=== PATIENT | female | born 1970 | race Caucasian/White ===

== ENCOUNTER → 2017-08-16 09:50 | Outpatient (REF) | payer MEDICAID, SELFPAY ==
[2017-08-16 14:48] LABS: Amphetamine/Metha Screen,Urine Negative ng/mL (<1000); Barbiturates Screen,Urine Negative ng/mL (<200); Benzodiazepines Screen,Urine Negative ng/mL (200); Cannabinoid Screen,Urine Negative ng/mL (<50); Cocaine Screen,Urine Negative ng/g (<300); Methadone Screen,Urine Negative ng/mL (<300); Opiate Screen,Urine Positive ng/mL (<300); Phencyclidine Screen,Urine Negative ng/mL (<25)
[2017-08-23 11:13] LABS: Codeine Positive (.); Hydrocodone Negative (Cutoff=100); Hydromorphone Negative (Cutoff=100); Morphine Negative (Cutoff=100); Oxycodone (GC/MS) 264 ng/mL (Cutoff=100)
[2017-08-24 12:13] LABS: Opiates Positive (.); Oxymorphone (GC/MS) 442 ng/mL (Cutoff=100)
== END ==
LOC: LAB 09:50
PROVIDERS: Visit Provider Physician Assistant
DX: Z79.899 Other long term (current) drug therapy (principal)
CPT/HCPCS: 80305; 80361; G0480

== ENCOUNTER 2017-09-01 13:30 | Outpatient (RCR) | payer MEDICAID, SELFPAY | END 2017-10-02 15:27 | disposition home or self-care (01) | LOC: PT 13:30 | PROVIDERS: Visit Provider Nurse Practitioner Family | DX: M54.5 Low back pain (principal) | CPT/HCPCS: 97035; 97110; 97140; 97163 ==

== ENCOUNTER → 2017-09-19 14:48 | Outpatient (POV) | payer MEDICAID, SELFPAY | PROVIDERS: PCP Internal Medicine Adolescent Medicine; Visit Provider Internal Medicine | DX: Z00.00 Encounter for general adult medical examination without abnormal findings (principal) ==

== ENCOUNTER 2018-01-02 09:30 | Outpatient (RCR) | payer MEDICAID, SELFPAY | END 2018-01-02 15:00 | disposition home or self-care (01) | LOC: PT 09:30 | PROVIDERS: PCP Physician Assistant; Visit Provider Orthopaedic Surgery | DX: M70.21 Olecranon bursitis, right elbow (principal) | CPT/HCPCS: 97033; 97035; 97110; 97140; 97163 ==

== ENCOUNTER → 2018-03-22 09:19 | Outpatient (REF) | payer MEDICAID, SELFPAY ==
[2018-03-22 13:53] LABS: Basophils % 0.5 % (0.1-2.0); Eosinophils # 0.1 K/mm3 (0.0-0.4); Eosinophils % 1.5 % (0.1-12.0); Hematocrit 36.1 % (37.0-47.0); Hemoglobin 11.4 g/dL (12.2-16.2); Lymphocytes # 1.8 K/mm3 (0.7-4.5); Lymphocytes % 29.7 K/mm3 (10-50); Mean Corpuscular HGB Conc 31.6 g/dL (31.8-35.4); Mean Corpuscular Hemoglobin 30.1 pg (27.0-31.2); Mean Corpuscular Volume 95.3 fl (81-99); Mean Platelet Volume 8.9 fl (7.4-10.4); Monocytes # 0.5 K/mm3 (0.1-1.0); Monocytes % 7.4 % (1.7-9.3); Neutrophils # 3.7 K/mm3 (1.8-7.8); Neutrophils % 60.8 % (37.0-80.0); Platelet Count 326 K/mm3 (142-424); Red Blood Count 3.79 M/mm3 (4.20-5.40); Red Cell Distribution Width 13.2 % (11.5-17.5); White Blood Count 6.1 K/mm3 (4.8-10.8)
[2018-03-22 14:41] LABS: Alanine Aminotransferase 15 U/L (12-78); Albumin Level 3.9 gm/dL (3.4-5.0); Albumin/Globulin Ratio 1.3 (1.1-1.8); Alkaline Phosphatase 114 U/L (46-116); Amylase 99 U/L (25-125); Anion Gap 16.9 mEq/L (5-15); Aspartate Amino Transferase 11 U/L (15-37); Bilirubin,Total 0.4 mg/dL (0.2-1.0); Blood Urea Nitrogen 8 mg/dL (7-18); Calcium 8.9 mg/dL (8.5-10.1); Carbon Dioxide 25 mmol/L (21.0-32.0); Chloride 105 mmol/L (98-107); Chol/HDL Ratio 3.6 (1-3.5); Cholesterol 167 mg/dL (140-200); Creatinine,Serum 0.76 mg/dL (0.55-1.02); Estimated Glomerular Filt Rate 81 ml/min (>60); GFR (African American) 98 ML/MIN (>60); Glucose 93 mg/dL (74-106); HDL Cholesterol 47 mg/dL (29-89); LDL Cholesterol 102 mg/dL (0-130); Lipase 166 u/L (73-393); Potassium 3.9 mmoL/L (3.5-5.1); Sodium 143 mmol/L (136-145); T4 (Thyroxine) 6.1 ug/dl (4.7-13.3); Thyroid Stimulating Hormone 17.33 uIU/ml (0.358-3.740); Total Protein,Serum 6.9 gm/dL (6.4-8.2); Triglycerides 89 mg/dL (30-200); VLDL Cholesterol 18 mg/dL (0-40)
[2018-03-23 09:12] LABS: Cancer Antigen (CA) 125 26.3 U/mL (0.0-38.1); Vitamin D 25 Hydroxy 34.5 ng/mL (30.0-100.0)
== END ==
LOC: LAB 09:19
PROVIDERS: Visit Provider Physician Assistant
DX: R63.4 Abnormal weight loss (principal); R10.13 Epigastric pain; R68.81 Early satiety; R63.0 Anorexia; E55.9 Vitamin D deficiency, unspecified
CPT/HCPCS: 80053; 80061; 82150; 82652; 83690; 84436; 84443; 85025; 86316

== ENCOUNTER → 2018-04-16 13:55 | Outpatient (CLI) | payer MEDICAID, SELFPAY ==
--- NOTE | 2018-04-16 13:57 | CT_ITS ---
CT chest wo con HISTORY: Pain, weight loss, follow-up pulmonary nodules, emphysema ITS.REASON: weight loss ORDERING PHYSICIAN: MICHAEL Marin PATIENT AGE: 48 years COMPARISON: 06/17/2016 Technique: Axial images obtained with sagittal and coronal reformats. All CT scans at the facility use one or more dose reduction, viz: automated exposure control, ma/kV adjustment per patient size (including targeted exams where dose is matched to indication, i.e. head), or iterative reconstruction technique. FINDINGS: There are few scattered small mediastinal lymph nodes which do not appear significantly changed. No mediastinal or hilar mass. There are a few calcified hilar lymph nodes. Normal heart size without evidence of pericardial effusion. There are severe centrilobular and panlobular emphysematous changes. Calcified granuloma right upper lobe. Subpleural 3 x 6 mm nodular opacity right midlung laterally and may be slightly more prominent but could be due to the slice orientation. There is a 6 mm parenchymal opacity in the right upper lobe anterolaterally. This is slightly more prominent but does have a linear shape and may be related to an area of pulmonary fibrosis. Pulmonary fibrosis noted in the lung bases with subpleural blebs and bullous changes are present in the apices. 5 mm nodule in left lung base is unchanged. No new nodules apparent a 7 mm nodule present in the left infrahilar region. This is along the major fissure may be due to small lymph node. This is unchanged. No new nodules are apparent. No effusions or infiltrates. Emphysematous changes appear worse compared to the previous exam. No acute bony anomalies. No evidence of aortic aneurysm. IMPRESSION: 1. Severe centrilobular and panlobular emphysematous changes which are somewhat worse compared to the previous exam with pulmonary fibrotic changes in the lung bases and bullous changes in the apices. 2. Bilateral pulmonary nodules probably benign. One nodule in the subpleural region in the right upper lobe slightly more prominent. This measures 6 mm. 6 month follow-up is suggested.
--- NOTE | 2018-04-16 13:57 | CT_ITS ---
CT abdomen pelvis wo con CLINICAL INDICATION: Midepigastric pain, weight loss ITS.REASON: weight loss ORDERING PHYSICIAN: MICHAEL Marin PATIENT AGE: 48 years COMPARISON: None TECHNIQUE: Axial images obtained with sagittal and coronal reformats. All CT scans at the facility use one or more dose reduction, viz: automated exposure control, ma/kV adjustment per patient size (including targeted exams where dose is matched to indication, i.e. head), or iterative reconstruction technique. PROCEDURE: Oral Contrast: None IV Contrast: None . FINDINGS: The liver, spleen, adrenal glands, gallbladder, pancreas, and kidneys have an unremarkable unenhanced CT appearance. No intestinal obstruction or free air. Unremarkable retrocecal appendix. Sigmoid diverticulosis. No evidence of diverticulitis. Prior hysterectomy. No pelvic mass abnormal fluid collection or focal inflammatory change within the pelvis. No acute bony anomalies. IMPRESSION: 1. No acute abdominal or pelvic findings. 2. Sigmoid diverticulosis. 3. Otherwise negative CT abdomen pelvis without contrast
== END ==
PROVIDERS: PCP Physician Assistant; Visit Provider Physician Assistant
DX: R10.13 Epigastric pain (principal); R63.0 Anorexia; R63.4 Abnormal weight loss; R68.81 Early satiety
CPT/HCPCS: 71250; 74176

== ENCOUNTER → 2018-05-28 11:05 | Outpatient (REF) | payer MEDICAID, SELFPAY ==
[2018-05-28 13:54] LABS: Basophils % 0.4 % (0.1-2.0); Eosinophils # 0.1 K/mm3 (0.0-0.4); Eosinophils % 1.3 % (0.1-12.0); Hematocrit 35.7 % (37.0-47.0); Hemoglobin 11.5 g/dL (12.2-16.2); Lymphocytes # 2.9 K/mm3 (0.7-4.5); Lymphocytes % 35.1 K/mm3 (10-50); Mean Corpuscular HGB Conc 32.2 g/dL (31.8-35.4); Mean Corpuscular Hemoglobin 31.3 pg (27.0-31.2); Mean Corpuscular Volume 97.3 fl (81-99); Mean Platelet Volume 7.8 fl (7.4-10.4); Monocytes # 0.6 K/mm3 (0.1-1.0); Neutrophils # 4.7 K/mm3 (1.8-7.8); Neutrophils % 56.2 % (37.0-80.0); Platelet Count 431 K/mm3 (142-424); Red Blood Count 3.67 M/mm3 (4.20-5.40); Red Cell Distribution Width 13.4 % (11.5-17.5); White Blood Count 8.3 K/mm3 (4.8-10.8)
[2018-05-28 15:11] LABS: Alanine Aminotransferase 13 U/L (12-78); Albumin Level 3.9 gm/dL (3.4-5.0); Albumin/Globulin Ratio 1.3 (1.1-1.8); Alkaline Phosphatase 112 U/L (46-116); Anion Gap 10.8 mEq/L (5-15); Aspartate Amino Transferase 12 U/L (15-37); Bilirubin,Total 0.4 mg/dL (0.2-1.0); Blood Urea Nitrogen 6 mg/dL (7-18); Calcium 8.8 mg/dL (8.5-10.1); Carbon Dioxide 31 mmol/L (21.0-32.0); Chloride 101 mmol/L (98-107); Creatinine,Serum 0.61 mg/dL (0.55-1.02); Estimated Glomerular Filt Rate 104 ml/min (>60); Free T4 (Free Thyroxine) 0.78 ng/dl (0.76-1.46); GFR (African American) 126 ML/MIN (>60); Glucose 85 mg/dL (74-106); Potassium 3.8 mmoL/L (3.5-5.1); Sodium 139 mmol/L (136-145); Thyroid Stimulating Hormone 8.94 uIU/ml (0.358-3.740); Total Protein,Serum 6.9 gm/dL (6.4-8.2)
== END ==
LOC: LAB 11:05
PROVIDERS: Visit Provider Physician Assistant
DX: E07.9 Disorder of thyroid, unspecified (principal)
CPT/HCPCS: 80053; 84439; 84443; 85025

== ENCOUNTER → 2018-06-05 11:13 | Outpatient (POV) | payer MEDICAID, SELFPAY ==
[2018-06-05 13:24] LABS: Basophils % 0.4 % (0.1-2.0); Eosinophils # 0.1 K/mm3 (0.0-0.4); Eosinophils % 1.2 % (0.1-12.0); Hematocrit 37.6 % (37.0-47.0); Hemoglobin 11.7 g/dL (12.2-16.2); Lymphocytes # 2.6 K/mm3 (0.7-4.5); Lymphocytes % 29.4 K/mm3 (10-50); Mean Corpuscular HGB Conc 31.2 g/dL (31.8-35.4); Mean Corpuscular Volume 99.4 fl (81-99); Mean Platelet Volume 7.1 fl (7.4-10.4); Monocytes # 0.5 K/mm3 (0.1-1.0); Monocytes % 6.1 % (1.7-9.3); Neutrophils # 5.6 K/mm3 (1.8-7.8); Platelet Count 353 K/mm3 (142-424); Red Blood Count 3.78 M/mm3 (4.20-5.40); Red Cell Distribution Width 13.8 % (11.5-17.5); White Blood Count 8.9 K/mm3 (4.8-10.8)
[2018-06-06 08:27] LABS: Iron 96 ug/dL (27-159); UIBC 202 ug/dL (131-425)
[2018-06-06 14:44] LABS: Iron Saturation 32 % (15-55)
== END ==
PROVIDERS: Visit Provider Internal Medicine
DX: D50.0 Iron deficiency anemia secondary to blood loss (chronic) (principal)
CPT/HCPCS: 36415; 83540; 83550; 85025

== ENCOUNTER → 2018-11-12 15:09 | Outpatient (CLI) | payer MEDICAID, SELFPAY ==
[2018-11-12 16:01] LABS: Basophils % 0.6 % (0.1-2.0); Eosinophils # 0.2 K/mm3 (0.0-0.4); Eosinophils % 3.1 % (0.1-12.0); Hematocrit 37.2 % (37.0-47.0); Lymphocytes # 2.3 K/mm3 (0.7-4.5); Lymphocytes % 40.1 % (10-50); Mean Corpuscular HGB Conc 34.9 g/dL (31.8-35.4); Mean Corpuscular Hemoglobin 33.2 pg (27.0-31.2); Mean Corpuscular Volume 95.2 fl (81-99); Mean Platelet Volume 8.1 fl (7.4-10.4); Monocytes # 0.4 K/mm3 (0.1-1.0); Monocytes % 7.4 % (1.7-9.3); Neutrophils # 2.8 K/mm3 (1.8-7.8); Neutrophils % 48.8 % (37.0-80.0); Platelet Count 355 K/mm3 (142-424); Red Blood Count 3.91 M/mm3 (4.20-5.40); Red Cell Distribution Width 12.8 % (11.5-17.5); White Blood Count 5.7 K/mm3 (4.8-10.8)
[2018-11-12 17:32] LABS: Alanine Aminotransferase 17 U/L (12-78); Albumin Level 3.8 gm/dL (3.4-5.0); Albumin/Globulin Ratio 1.2 (1.1-1.8); Alkaline Phosphatase 100 U/L (46-116); Aspartate Amino Transferase 13 U/L (15-37); Bilirubin,Total 0.3 mg/dL (0.2-1.0); Blood Urea Nitrogen 9 mg/dL (7-18); Calcium 8.7 mg/dL (8.5-10.1); Carbon Dioxide 27 mmol/L (21.0-32.0); Chloride 104 mmol/L (98-107); Chol/HDL Ratio 3.9 (1-3.5); Cholesterol 190 mg/dL (140-200); Creatinine,Serum 0.72 mg/dL (0.55-1.02); Estimated Glomerular Filt Rate 86 ml/min (>60); GFR (African American) 104 ML/MIN (>60); Globulin 3.1 gm/dl (1.3-3.2); Glucose 96 mg/dL (74-106); HDL Cholesterol 49 mg/dL (29-89); LDL Cholesterol 100 mg/dL (0-130); Sodium 140 mmol/L (136-145); T4 (Thyroxine) 5.7 ug/dl (4.7-13.3); Thyroid Stimulating Hormone 13.99 uIU/ml (0.358-3.740); Total Protein,Serum 6.9 gm/dL (6.4-8.2); Triglycerides 203 mg/dL (30-200); VLDL Cholesterol 41 mg/dL (0-40)
[2018-11-14 14:27] LABS: Folate 4.4 ng/mL (>3.0); Vitamin B12 189 pg/mL (232-1245)
== END ==
PROVIDERS: Visit Provider Physician Assistant
DX: R07.9 Chest pain, unspecified (principal); B02.29 Other postherpetic nervous system involvement; Z79.899 Other long term (current) drug therapy; E55.9 Vitamin D deficiency, unspecified
CPT/HCPCS: 80053; 80061; 82607; 82652; 82746; 84436; 84443; 85025

== ENCOUNTER → 2018-11-21 07:52 | Outpatient (CLI) | payer MEDICAID, SELFPAY ==
--- NOTE | 2018-11-21 07:57 | MR_ITS ---
MR thoracic spine wo con HISTORY: PT was in pain. Had to be rescouted. Mid back pain. Numbness and burning in back. [id number]. No trauma. No thoracic surgery. ITS.REASON: Burning pain in thoracic area ORDERING PHYSICIAN: MICHAEL Marin PATIENT AGE: 48 years Comparison: MR 05-03-16 TECHNIQUE: Standard multiplanar multiecho sequences are performed without contrast. 3-D MIP and myelographic images are also rendered and reviewed FINDINGS: There is normal alignment. No fracture or dislocation. No disc herniation or canal stenosis. There is minimal cortical irregularity involving the superior endplate of T9 which is unchanged. Minimal central disc protrusion versus posterior longitudinal ligament at T1-T2 without impingement. Minimal bulging disc at T2-T3. IMPRESSION: No acute finding with no significant change. Minimal central disc protrusion versus posterior longitudinal ligament at T1-T2 and minimal bulging disc at T2-T3
== END ==
PROVIDERS: PCP Emergency Medicine; Visit Provider Physician Assistant
DX: B02.29 Other postherpetic nervous system involvement (principal); R07.9 Chest pain, unspecified
CPT/HCPCS: 72146

== ENCOUNTER → 2018-12-04 15:07 | Outpatient (POV) | payer MEDICAID, SELFPAY | PROVIDERS: Visit Provider Internal Medicine | DX: Z00.00 Encounter for general adult medical examination without abnormal findings (principal) ==

== ENCOUNTER → 2019-01-23 13:45 | Outpatient (CLI) | payer MEDICAID, SELFPAY | PROVIDERS: Visit Provider Physician Assistant | DX: R30.0 Dysuria (principal) | CPT/HCPCS: 87086 ==

== ENCOUNTER → 2019-02-21 15:29 | Outpatient (CLI) | payer MEDICAID, SELFPAY | PROVIDERS: Visit Provider Urology | DX: R39.89 Other symptoms and signs involving the genitourinary system (principal) | CPT/HCPCS: 87086 ==

== ENCOUNTER → 2019-05-21 14:10 | Outpatient (CLI) | payer MEDICAID, SELFPAY ==
--- NOTE | 2019-05-21 14:14 | XR_ITS ---
PROCEDURE: XR CHEST 2V CLINICAL HISTORY: SOA Cough, congestion, previous smoker COMPARISON: CXR CHEST(2 VIEWS-NOT PORTABLE) from 04/21/2016 CXR CHEST(2 VIEWS-NOT PORTABLE) from 10/10/2016 CXR CHEST(2 VIEWS-NOT PORTABLE) from 04/13/[address] chest wo con from 04/16/2018 SPTHORWO MR thoracic spine wo con from 11/21/2018 FINDINGS: The cardiomediastinal silhouette and pulmonary vascularity are within normal limits. COPD with hyperinflation and hyperlucency of the upper lobes No lobar consolidation or collapse. Calcified granuloma is present in the right lung base. There is mild wedging of T7 age which appears to have developed since MRI of 11/21/2018. IMPRESSION: 1. COPD. 2. Mild wedging of T7 which has developed since 11/21/2018 Dictated by: Troy Matamoros MD 05/21/2019 18:09 Electronically signed by Troy Matamoros MD in [place] 05/21/2019 18:09
== END ==
PROVIDERS: PCP Physician Assistant; Visit Provider Nurse Practitioner Family
DX: R06.02 Shortness of breath (principal)
CPT/HCPCS: 71046

== ENCOUNTER → 2019-06-04 10:52 | Outpatient (POV) | payer MEDICAID, SELFPAY ==
[2019-06-04 11:12] LABS: Adenovirus,PCR Not Detected (NotDetected); Bordetella Pertussis Not Detected (NotDetected); Chlamydophila Pneumoniae, PCR Not Detected (NotDetected); Coronavirus 229E Not Detected (NotDetected); Coronavirus NL63 Not Detected (NotDetected); Coronavirus OC43 Not Detected (NotDetected); Coronovirus HKU1,PCR Not Detected (NotDetected); Human Metapneumovirus Not Detected (NotDetected); Influenza A, PCR Not Detected (NotDetected); Influenza AH1, 2009 Not Detected (NotDetected); Influenza AH1, PCR Not Detected (NotDetected); Influenza AH3,PCR Not Detected (NotDetected); Influenza B, PCR Not Detected (NotDetected); Mycoplasma Pneumoniae, PCR Not Detected (NotDetected); Parainfluenza 1, PCR Not Detected (NotDetected); Parainfluenza 2, PCR Not Detected (NotDetected); Parainfluenza 3, PCR Not Detected (NotDetected); Parainfluenza 4, PCR Not Detected (NotDetected); Respiratory Syncytial Virus Not Detected (NotDetected); Rhinovirus/Enterovirus Not Detected (NotDetected)
== END ==
PROVIDERS: Nurse Practitioner Family; Visit Provider Internal Medicine
DX: J44.9 Chronic obstructive pulmonary disease, unspecified (principal)
CPT/HCPCS: 87486; 87581; 87633; 87798

== ENCOUNTER → 2019-06-06 15:39 | Outpatient (CLI) | payer MEDICAID, SELFPAY ==
--- NOTE | 2019-06-06 15:43 | XR_ITS ---
PROCEDURE: XR THORACIC SPINE 3V CLINICAL INDICATION: Thoracic back pain Mid back pain COMPARISON: SPTHORWO MR thoracic spine wo con from 11/21/2018 XR CHEST 2V from 05/21/2019 FINDINGS: There is minimal thoracic curvature convex left with mild wedging of T9 which does not appear significantly changed. This is greater along the right lateral aspect. There is also mild wedging of T7 which may be slightly worse compared to the radiograph of 05/21/2019.. No lytic or blastic change is evident. No malalignment. IMPRESSION: Mild wedging of T7 which may be slightly worse. Chronic wedging of T9 unchanged Dictated by: Troy Matamoros MD 06/06/2019 16:20 Electronically signed by Troy Matamoros MD in [place] 06/06/2019 16:20
== END ==
PROVIDERS: PCP Physician Assistant; Visit Provider Physician Assistant
DX: M54.6 Pain in thoracic spine (principal)
CPT/HCPCS: 72072

== ENCOUNTER → 2019-06-18 14:02 | Outpatient (CLI) | payer MEDICAID, SELFPAY ==
--- NOTE | 2019-06-18 14:15 | CT_ITS ---
PROCEDURE: CT CHEST WO CON CLINICAL INDICATION: MULTIPLE PULMONARY NODULES Follow-up pulmonary nodules COMPARISON: ABDPELWO CT abdomen pelvis wo con from 04/16/[address] chest wo con from 04/16/2018 SPTHORWO MR thoracic spine wo con from 11/21/2018 TECHNIQUE: Axial images obtained with sagittal and coronal reformats. All CT scans at the facility use one or more dose reduction, viz: automated exposure control, ma/kV adjustment per patient size (including targeted exams where dose is matched to indication, i.e. head), or iterative reconstruction technique. FINDINGS: There are scattered small mediastinal lymph nodes which are not significantly changed. Normal heart size. Old granulomatous disease. Severe centrilobular emphysema with scattered calcified and noncalcified nodules as previously described. No new nodules are evident. There is a 7 mm nodule in the left infrahilar region which is stable. This nodule is along the major fissure and may be due to a small lymph node in the major fissure. No suspicious pulmonary nodules are evident. There has been interval development of mild wedge compression changes involving the T7 vertebral body along the inferior endplate with loss of height anteriorly of approximately 40 percent. This has developed since 04/16/2018 and since the previous MRI of 11/21/2018. IMPRESSION: 1. Overall stable CT appearance of the pulmonary nodules with no new nodules evident. 2. Severe centrilobular emphysema/COPD. 3. New mild to moderate wedge compression changes of T7 with loss of height anteriorly of approximately 40 percent without obvious retropulsion Dictated by: Troy Matamoros MD 06/19/2019 06:39 Electronically signed by Troy Matamoros MD in [place] 06/19/2019 06:39
== END ==
PROVIDERS: PCP Physician Assistant; Visit Provider Internal Medicine
DX: R91.8 Other nonspecific abnormal finding of lung field (principal)
CPT/HCPCS: 71250

== ENCOUNTER 2019-06-24 13:00 | Outpatient (RCR) | payer MEDICAID, SELFPAY ==
--- NOTE | 2019-06-17 15:00 | HMH.PTOPEV ---
PT Outpatient Evaluation Rehab PT Outpatient Evaluation Start: 06/17/19 14:33 Freq: Status: Active Protocol: Document 06/17/19 14:33 [email or web address] (Rec: 06/17/19 15:00 [email or web address] [id number]) Electronically Signed By Mark Gagnon, PT 06/17/19 14:33 Outpatient Therapy Subjective History Subjective History Pt. is a 49 year old female who presents to outpatient PT for complaints of subacute and constant thoracic P! of insidious onset for 1 month. Pt. reports her symptom began as an itch, and has progressed to a bee sting that radiates around towards the stomach. Pt. reports no symptom relief with a steroid injection, and reports getting a CT scan tomorrow(06/17/19). Recent diagnostic imaging(X-ray) positive for mild wedging of T7/chronic wedging of T9. Current medications include Lyrica, Suboxone, Ibuprofen, and Chantix. PMH includes COPD , complete hysterectomy, Carpal Tunnel Syndrome R, CHF, and chronic UTIs. Chief Complaint Pain,Stiff,Paresthesia Symptom Type Ache,Dull,Stabbing,Numbness Symptoms Relieved By OTC Meds,Prescription Meds Symptoms Aggravated By Physical Activity,Lifting Prior Functional Limitations None Current Functional Limitations Reaching,Lifting,Housework, Driving,Sleeping,Recreation Activity Symptom Description Constant but Variable Level of pain today (0-10) 3 Pain scale - at its best (0-10) 3 Pain scale - at its worst (0-10) 8 Cervical Eval Palpation Cervical Muscles R Thoracic Paraspinals,L Thoracic Paraspinals Cervical/Thoracic Palpation Findings Tenderness MMT Bilateral Deltoid (C5) 5 Normal Biceps Brachii Strength Grade 5 Normal Wrist Extension Strength Grade 5 Normal Triceps Brachii Strength Grade 5 Normal Wrist Flexion Strength Grade 5 Normal Extensor Pollicis Longus Strength Grade 5 Normal Finger Abduction Strength Grade 5 Normal Altered Sensation Comment light touch sensation WNL Shoulder/Elbow Eval Shoulder Objective Measurements Posture Shoulder Posture Sitting Position (L) Ro
== END 2019-07-22 09:43 | disposition home or self-care (01) ==
LOC: PT.CARL 13:00
PROVIDERS: Visit Provider Physician Assistant
DX: M54.6 Pain in thoracic spine (principal)
CPT/HCPCS: 97014; 97110; 97140; 97163; G0283

== ENCOUNTER → 2019-06-26 08:06 | Outpatient (CLI) | payer MEDICAID, SELFPAY ==
--- NOTE | 2019-06-26 08:07 | MR_ITS ---
PROCEDURE: MR THORACIC SPINE WO CON CLINICAL INDICATION: wedging at T7 and T9 Mid back pain, compression fracture of T7 evaluation COMPARISON: SPTHORWO MR thoracic spine wo con from 11/21/2018 CT CHEST WO CON from 06/18/2019 TECHNIQUE: Routine multiplanar multi echo sequences are performed without gadolinium enhancement. FINDINGS: There is normal alignment. Compared to 11/21/2018 MRI there is a new wedge compression fracture T7 which does appear acute with decreased T1 and increased T2 signal along the inferior aspect of the T7 vertebral body. There is loss of height anteriorly of approximately 30-40 percent. No retropulsion apparent. Minimal bulging disc noted with minimal posterior ridging noted at the lower aspect of T7 vertebral body. No cord impingement. There is mild chronic wedge compression changes involving the T9 vertebral body along the superior endplate. There is also mild loss of height anteriorly of T3 which appears chronic. No bony destructive process. No spinal cord abnormality. No paravertebral mass.. No extruded herniated disc. IMPRESSION: 1. Mild acute wedge compression changes of T7 without obvious retropulsion. Minimal bulging disc with minimal posterior ridging at the endplate at this level without impingement 2. Chronic mild wedge compression changes of T3 and T9. 3. Otherwise negative Dictated by: Troy Matamoros MD 06/27/2019 11:40 Electronically signed by Troy Matamoros MD in [facility] 06/27/2019 11:40
== END ==
PROVIDERS: PCP Physician Assistant; Visit Provider Physician Assistant
DX: M48.50XA Collapsed vertebra, not elsewhere classified, site unspecified, initial encounter for fracture (principal)
CPT/HCPCS: 72146

== ENCOUNTER → 2019-07-05 09:44 | Outpatient (CLI) | payer MEDICAID, SELFPAY ==
--- NOTE | 2019-07-05 09:45 | MR_ITS ---
PROCEDURE: MR HEAD/BRAIN WO/W CON CLINICAL INDICATION: Slurred speech, abnormal sensation in the right arm COMPARISON: No exams were available for comparison TECHNIQUE: Routine multiplanar multi echo sequences are performed without and with gadolinium enhancement. FINDINGS: No midline shift, mass effect, intracranial hemorrhage, or hydrocephalus is evident. No enhancing lesions are apparent. There are few scattered periventricular and subcortical T2 white matter hyperintensities. There is a small area of cystic encephalomalacia in the right frontal parietal region of the ulloa radiata consistent with an old area of infarction. This does not demonstrate enhancement. The cerebellopontine angles, cerebellum, and brainstem are unremarkable. The pituitary, optic chiasm, corpus callosum, and craniocervical junction are unremarkable. There is a left mastoid effusion. No sinus air-fluid level. IMPRESSION: 1. Scattered periventricular and subcortical T2 white matter hyperintensities. These are nonspecific with the most common etiology being ischemic gliotic change from small vessel disease. Migraine headache or demyelinating process is included in the differential diagnosis. 2. Encephalomalacia change in the right ulloa radiata consistent with an old lacunar infarction 3. Left mastoid sinus disease Dictated by: Troy Matamoros MD 07/06/2019 00:58 Electronically signed by Troy Matamoros MD in [facility] 07/06/2019 07:50
== END ==
PROVIDERS: PCP Physician Assistant; Visit Provider Physician Assistant
DX: R93.0 Abnormal findings on diagnostic imaging of skull and head, not elsewhere classified (principal)
CPT/HCPCS: 70553; A9576

== ENCOUNTER → 2019-09-19 17:28 | Outpatient (CLI) | payer MEDICAID, SELFPAY ==
[2019-09-19 18:32] LABS: Basophils % 0.7 % (0.1-2.0); Eosinophils # 0.1 K/mm3 (0.0-0.4); Eosinophils % 3.3 % (0.1-12.0); Hematocrit 38.7 % (37.0-47.0); Hemoglobin 12.7 g/dL (12.2-16.2); Lymphocytes # 1.8 K/mm3 (0.7-4.5); Mean Corpuscular HGB Conc 32.8 g/dL (31.8-35.4); Mean Corpuscular Hemoglobin 31.3 pg (27.0-31.2); Mean Corpuscular Volume 95.2 fl (81-99); Monocytes # 0.3 K/mm3 (0.1-1.0); Monocytes % 6.8 % (1.7-9.3); Neutrophils # 2.1 K/mm3 (1.8-7.8); Neutrophils % 48.2 % (37.0-80.0); Platelet Count 370 K/mm3 (142-424); Red Blood Count 4.07 M/mm3 (4.20-5.40); Red Cell Distribution Width 12.9 % (11.5-17.5); White Blood Count 4.4 K/mm3 (4.8-10.8)
[2019-09-19 19:13] LABS: Alanine Aminotransferase 17 U/L (9-52); Albumin Level 4.2 g/dL (3.4-5.0); Albumin/Globulin Ratio 1.3 (1.1-1.8); Anion Gap 13.5 mEq/L (5-15); Aspartate Amino Transferase 15 U/L (15-37); Bilirubin,Total 0.3 mg/dL (0.2-1.0); Blood Urea Nitrogen 6 mg/dL (7-18); Calcium 8.7 mg/dL (8.5-10.1); Carbon Dioxide 30 mmol/L (21.0-32.0); Chloride 104 mmol/L (98-107); Cholesterol 208 mg/dL (140-200); Creatinine,Serum 0.74 mg/dL (0.55-1.02); Estimated Glomerular Filt Rate 83 ml/min (>60); GFR (African American) 101 ML/MIN (>60); Globulin 3.3 gm/dl (1.3-3.2); Glucose 78 mg/dL (74-106); HDL Cholesterol 66 mg/dL (29-89); Potassium 4.5 mmoL/L (3.5-5.1); Sodium 143 mmol/L (137-145); Total Protein,Serum 7.5 g/dL (6.4-8.2); Triglycerides 110 mg/dL (30-200); VLDL Cholesterol 22 mg/dL (0-40)
[2019-09-19 19:14] LABS: Alkaline Phosphatase 109 U/L (46-116); Chol/HDL Ratio 3.2 (1-3.5); LDL Cholesterol 120 mg/dL (0-130); T4 (Thyroxine) 9.2 ug/dl (4.7-13.3); Thyroid Stimulating Hormone 4.98 uIU/ml (0.358-3.740)
[2019-09-21 19:10] LABS: Vitamin D 25 Hydroxy 24.5 ng/mL (30.0-100.0)
== END ==
PROVIDERS: Visit Provider Physician Assistant
DX: E03.9 Hypothyroidism, unspecified (principal); E55.9 Vitamin D deficiency, unspecified
CPT/HCPCS: 80053; 80061; 82652; 84436; 84443; 85025

== ENCOUNTER → 2019-09-30 09:52 | Outpatient (CLI) | payer MEDICAID, SELFPAY ==
--- NOTE | 2019-09-30 09:52 | XR_ITS ---
PROCEDURE: XR DEXA AXIAL SKELETON CLINICAL HISTORY: Compression fracture COMPARISON: No exams were available for comparison FINDINGS: Right femoral neck density is 0.530 grams/centimeters sq with a T-score of -2.9 consistent with osteoporosis. Left femoral neck density is 0.521 grams/centimeters sq with a T-score of -3.0 consistent with osteoporosis. L1-L4 density is 0.653 grams/centimeters sq with T-score of -3.6 also consistent with osteoporosis. IMPRESSION: Osteoporosis with high fracture risk. Treatment advised. Suggest follow-up exam in 1 year. Dictated by: Troy Matamoros MD 10/01/2019 16:58 Electronically signed by Troy Matamoros MD in [facility] 10/01/2019 16:58
== END ==
PROVIDERS: PCP Physician Assistant; Visit Provider Physician Assistant
DX: S22.060A Wedge compression fracture of T7-T8 vertebra, initial encounter for closed fracture (principal)
CPT/HCPCS: 77080

== ENCOUNTER → 2019-12-09 13:57 | Outpatient (CLI) | payer MEDICAID, SELFPAY ==
--- NOTE | 2019-12-09 14:02 | MR_ITS ---
PROCEDURE: MR THORACIC SPINE WO CON CLINICAL INDICATION: WEDGE COMPRESSION FX T7-T8 Mid back pain, compression fracture, evaluate T7 compression fracture COMPARISON: MR THORACIC SPINE WO CON from 06/26/2019 TECHNIQUE: Routine multiplanar multi echo sequences are performed without gadolinium enhancement. FINDINGS: There is normal alignment. There is continued mild wedge compression changes of T7. This however does not appear progressed compared to the previous exam. The increased T2 signal within the lower aspect of the T7 vertebral body has improved with only a small area of increased T2 signal along the anterior and inferior aspect of T7 vertebral body. No retropulsion. There is mild degenerative disc disease at T8-T9. There is minimal wedging of T3. This however does not appear acute. There is minimal bulging disc at T7-T8 with mild degenerative disc disease there is minimal anterolisthesis of T2 on T3 of 2-3 mm. IMPRESSION: 1. Overall no significant change from 06/26/2019. 2. Mild chronic wedge compression changes of T7 and minimal chronic wedging T3 Dictated by: Troy Matamoros MD 12/11/2019 13:16 Electronically signed by Troy Matamoros MD in [place] 12/11/2019 13:16
--- NOTE | 2019-12-09 15:32 | XR_ITS ---
PROCEDURE: XR CERVICAL SPINE 5V CLINICAL INDICATION: Neck pain COMPARISON: No exams were available for comparison FINDINGS: Normal alignment. There is mild osteoarthritic change at C5-C6. There is mild foraminal narrowing on the right at C5-C6 and on the left at C5-C6. No cervical rib. No lytic or blastic change. IMPRESSION: Mild degenerative disc disease with bilateral foraminal narrowing at C5-C6 Dictated by: Troy Matamoros MD 12/09/2019 17:30 Electronically signed by Troy Matamoros MD in [place] 12/09/2019 17:30
== END ==
PROVIDERS: PCP Physician Assistant; Visit Provider Anesthesiology Pain Medicine
DX: S22.060S Wedge compression fracture of T7-T8 vertebra, sequela (principal); M54.13 Radiculopathy, cervicothoracic region; G89.4 Chronic pain syndrome
CPT/HCPCS: 72050; 72146

== ENCOUNTER → 2020-03-09 14:22 | Outpatient (CLI) | payer MEDICAID, SELFPAY ==
[2020-03-11 13:24] LABS: Covid-19 Nasal PCR Sendout Lex Not Detected
== END ==
PROVIDERS: Visit Provider Dermatology Dermatopathology
DX: Z01.812 Encounter for preprocedural laboratory examination (principal)
CPT/HCPCS: U0004

== ENCOUNTER → 2020-04-14 17:16 | Outpatient (CLI) | payer MEDICAID, SELFPAY ==
[2020-04-14 17:56] LABS: Basophils % 0.6 % (0.1-2.0); Eosinophils # 0.2 K/mm3 (0.0-0.4); Eosinophils % 3.6 % (0.1-12.0); Hematocrit 37.6 % (37.0-47.0); Hemoglobin 12.6 g/dL (12.2-16.2); Lymphocytes # 1.9 K/mm3 (0.7-4.5); Lymphocytes % 35.1 % (10-50); Mean Corpuscular HGB Conc 33.5 g/dL (31.8-35.4); Mean Corpuscular Hemoglobin 33.9 pg (27.0-31.2); Mean Corpuscular Volume 101.2 fl (81-99); Monocytes # 0.5 K/mm3 (0.1-1.0); Monocytes % 8.6 % (1.7-9.3); Neutrophils # 2.8 K/mm3 (1.8-7.8); Platelet Count 319 K/mm3 (142-424); Red Blood Count 3.72 M/mm3 (4.20-5.40); White Blood Count 5.4 K/mm3 (4.8-10.8)
[2020-04-14 18:01] LABS: Alanine Aminotransferase 9 U/L (12-78); Albumin Level 4.2 g/dl (3.5-5.0); Albumin/Globulin Ratio 1.4 (1.1-1.8); Alkaline Phosphatase 117 U/L (38-126); Anion Gap 11.8 mEq/L (5-15); Aspartate Amino Transferase 23 U/L (14-36); Bilirubin,Total 0.5 mg/dl (0.2-1.3); Blood Urea Nitrogen 8 mg/dl (7-17); Calcium 9.6 mg/dl (8.4-10.2); Carbon Dioxide 31 mmol/L (22.0-30.0); Chloride 101 mmol/L (98-107); Chol/HDL Ratio 3.2 (1-3.5); Cholesterol 207 mg/dl (140-200); Estimated Glomerular Filt Rate 105 ml/min (>60); GFR (African American) 128 ML/MIN (>60); Globulin 2.9 g/dL (1.3-3.2); Glucose 89 mg/dl (74-100); HDL Cholesterol 65 mg/dl (40-60); Potassium 4.8 mmoL/L (3.5-5.1); Sodium 139 mmol/L (136-145); Total Protein,Serum 7.1 g/dl (6.3-8.2); Triglycerides 128 mg/dl (30-150); VLDL Cholesterol 26 mg/dL (0-40)
[2020-04-14 18:12] LABS: Direct LDL Cholesterol 109.13 mg/dL (100-129)
[2020-04-14 18:18] LABS: 25-OH Vitamin D, Total 41.5 ng/mL (30-100)
[2020-04-14 18:19] LABS: Free T4 (Free Thyroxine) 1.03 ng/dl (0.78-2.19)
== END ==
PROVIDERS: Visit Provider Physician Assistant
DX: E03.9 Hypothyroidism, unspecified (principal); E55.9 Vitamin D deficiency, unspecified; I10 Essential (primary) hypertension
CPT/HCPCS: 80053; 80061; 82306; 84439; 84443; 85025

== ENCOUNTER → 2020-09-09 18:02 | Outpatient (CLI) | payer MEDICAID, SELFPAY ==
[2020-09-09 21:11] LABS: Thyroid Stimulating Hormone 6.93 uIU/mL (0.465-4.68)
[2020-09-10 17:14] LABS: Free T4 (Free Thyroxine) 0.83 ng/dl (0.78-2.19)
== END ==
PROVIDERS: Visit Provider Physician Assistant
DX: E03.9 Hypothyroidism, unspecified (principal); R30.0 Dysuria
CPT/HCPCS: 84436; 84439; 84443; 87086

== ENCOUNTER → 2020-10-07 09:52 | Outpatient (CLI) | payer MEDICAID, SELFPAY ==
--- NOTE | 2020-10-07 09:52 | XR_ITS ---
PROCEDURE: XR DEXA AXIAL SKELETON CLINICAL HISTORY: annual f/u COMPARISON: No exams were available for comparison FINDINGS: The right hip BMD is 0.609 with a T-score of -2.2. The left hip BMD is 0.625 with a T-score of -2.6. The lumbar spine BMD is 0.708 with a T-score of -3.1. IMPRESSION: This patient is considered osteoporotic according to the World Health Organization criteria. Fracture risk is high. Treatment is advised. Based on these results a follow-up exam is recommended in 1 year. Dictated by: Troy Matamoros MD 10/08/2020 14:20 Troy Matamoros MD in [place] 10/08/2020 14:20
== END ==
PROVIDERS: PCP Physician Assistant; Visit Provider Physician Assistant
DX: M81.0 Age-related osteoporosis without current pathological fracture (principal)
CPT/HCPCS: 77080

== ENCOUNTER → 2021-02-02 17:28 | Outpatient (CLI) | payer MEDICAID, SELFPAY ==
[2021-02-02 18:19] LABS: Basophils % 0.8 % (0.1-2.0); Eosinophils # 0.2 K/mm3 (0.0-0.4); Eosinophils % 3.2 % (0.1-12.0); Hematocrit 35.3 % (37.0-47.0); Hemoglobin 11.8 g/dL (12.2-16.2); Lymphocytes # 1.6 K/mm3 (0.7-4.5); Lymphocytes % 30.4 % (10-50); Mean Corpuscular HGB Conc 33.5 g/dL (31.8-35.4); Mean Corpuscular Hemoglobin 31.7 pg (27.0-31.2); Mean Corpuscular Volume 94.5 fl (81-99); Mean Platelet Volume 9.8 fl (7.4-10.4); Monocytes # 0.5 K/mm3 (0.1-1.0); Monocytes % 8.6 % (1.7-9.3); Neutrophils % 57.1 % (37.0-80.0); Platelet Count 382 K/mm3 (142-424); Red Blood Count 3.74 M/mm3 (4.20-5.40); Red Cell Distribution Width 13.5 % (11.5-17.5); White Blood Count 5.2 K/mm3 (4.8-10.8)
[2021-02-02 19:12] LABS: Alanine Aminotransferase 9 U/L (12-78); Albumin Level 4.2 g/dl (3.5-5.0); Albumin/Globulin Ratio 1.5 (1.1-1.8); Alkaline Phosphatase 93 U/L (38-126); Anion Gap 12.2 mEq/L (5-15); Aspartate Amino Transferase 21 U/L (14-36); Bilirubin,Total 0.5 mg/dl (0.2-1.3); Blood Urea Nitrogen 8 mg/dl (7-17); Calcium 9.2 mg/dl (8.4-10.2); Carbon Dioxide 31 mmol/L (22.0-30.0); Chloride 103 mmol/L (98-107); Chol/HDL Ratio 2.7 (1-3.5); Cholesterol 189 mg/dl (140-200); Estimated Glomerular Filt Rate 88 ml/min (>60); GFR (African American) 107 ML/MIN (>60); Globulin 2.8 g/dL (1.3-3.2); Glucose 89 mg/dl (74-100); HDL Cholesterol 69 mg/dl (40-60); Potassium 4.2 mmoL/L (3.5-5.1); Sodium 142 mmol/L (136-145); Triglycerides 149 mg/dl (30-150); VLDL Cholesterol 30 mg/dL (0-40)
[2021-02-02 19:23] LABS: Direct LDL Cholesterol 84.14 mg/dL (100-129)
[2021-02-02 19:31] LABS: 25-OH Vitamin D, Total 47.8 ng/mL (30-100); Free T4 (Free Thyroxine) 1.83 ng/dl (0.78-2.19)
[2021-02-02 19:43] LABS: Thyroid Stimulating Hormone 0.19 uIU/mL (0.465-4.68)
[2021-02-02 20:36] LABS: Iron 120 ug/dL (37-170)
[2021-02-02 20:45] LABS: Total Iron Binding Capacity 283 ug/dL (265-497)
== END ==
PROVIDERS: Visit Provider Physician Assistant
DX: I10 Essential (primary) hypertension (principal); E03.9 Hypothyroidism, unspecified; E55.9 Vitamin D deficiency, unspecified; R53.83 Other fatigue
CPT/HCPCS: 80053; 80061; 82306; 83540; 83550; 84439; 84443; 85025

== ENCOUNTER → 2021-02-25 12:59 | Outpatient (CLI) | payer MEDICAID, SELFPAY | PROVIDERS: PCP Physician Assistant; Visit Provider Physician Assistant | DX: J44.9 Chronic obstructive pulmonary disease, unspecified (principal) | CPT/HCPCS: 94060; 94726; 94729 ==

== ENCOUNTER → 2021-04-14 15:13 | Outpatient (CLI) | payer MEDICAID, SELFPAY ==
[2021-04-16 12:19] LABS: Alpha-1-Antitrypsin 102 mg/dL (101-187)
[2021-04-19 00:05] LABS: D001-IgE D pteronyssinus <0.10 kU/L (Class 0); D002-IgE D farinae <0.10 kU/L (Class 0); E001-IgE Cat Dander <0.10 kU/L (Class 0); E005-IgE Dog Dander <0.10 kU/L (Class 0); E072-IgE Mouse Urine <0.10 kU/L (Class 0); G002-IgE Bermuda Grass <0.10 kU/L (Class 0); G006-IgE Timothy Grass <0.10 kU/L (Class 0); I006-IgE Cockroach, German <0.10 kU/L (Class 0); Immunoglobulin E, Total 27 IU/mL (6-495); M001-IgE Penicillium chrysogen <0.10 kU/L (Class 0); M002-IgE Cladosporium herbarum <0.10 kU/L (Class 0); M003-IgE Aspergillus fumigatus <0.10 kU/L (Class 0); M006-IgE Alternaria alternata <0.10 kU/L (Class 0); T001-IgE Maple/Box Elder <0.10 kU/L (Class 0); T003-IgE Common Silver Birch <0.10 kU/L (Class 0); T006-IgE Cedar, Mountain <0.10 kU/L (Class 0); T007-IgE Oak, White <0.10 kU/L (Class 0); T008-IgE Elm, American <0.10 kU/L (Class 0); T010-IgE Walnut <0.10 kU/L (Class 0); T011-IgE Maple Leaf Sycamore <0.10 kU/L (Class 0); T014-IgE Cottonwood <0.10 kU/L (Class 0); T015-IgE Ash, White <0.10 kU/L (Class 0); T022-IgE Pecan, Hickory <0.10 kU/L (Class 0); T070-IgE White Mulberry <0.10 kU/L (Class 0); W001-IgE Ragweed, Short <0.10 kU/L (Class 0); W011-IgE Thistle, Russian <0.10 kU/L (Class 0); W014-IgE Pigweed, Common <0.10 kU/L (Class 0); W018-IgE Sheep Sorrel <0.10 kU/L (Class 0)
== END ==
PROVIDERS: Visit Provider Internal Medicine Pulmonary Disease
DX: J44.9 Chronic obstructive pulmonary disease, unspecified (principal)
CPT/HCPCS: 36415; 82103; 82785; 86003

== ENCOUNTER → 2021-05-05 15:37 | Outpatient (CLI) | payer MEDICAID, SELFPAY ==
--- NOTE | 2021-05-05 15:41 | CT_ITS ---
PROCEDURE: CT CHEST WO CON CLINICAL INDICATION: nodule Shortness of air COMPARISON: CT CT CHEST WO CON from 06/18/2019 TECHNIQUE: Axial images obtained with sagittal and coronal reformats. All CT scans at the facility use one or more dose reduction, viz: automated exposure control, ma/kV adjustment per patient size (including targeted exams where dose is matched to indication, i.e. head), or iterative reconstruction technique. FINDINGS: HEART AND MEDIASTINAL STRUCTURES: Mildly prominent mediastinal lymph nodes not significantly changed. LUNGS AND PLEURAL SPACES: Severe panlobular emphysema with evidence of old granulomatous disease and scattered areas of scarring. Bullous changes are present as before. 7 x 5 mm mike fissural nodule along the left major fissure centrally unchanged. No new nodules evident. No evidence of pneumonia or effusion. No change mild wedging of T7 and minimal wedging of T9. No new wedge compression fractures apparent BONY STRUCTURES: No change mild wedging of T7 and minimal wedging of T9. No new wedge compression fractures apparent UPPER ABDOMEN: Unremarkable. ADDITIONAL FINDINGS: No other significant abnormalities. IMPRESSION: 1. Stable CT appearance of the chest. No change in the 7 x 5 mm left Mike fissural nodule. 2. Severe panlobular emphysema with bullous changes Dictated by: Troy Matamoros MD 05/06/2021 07:33 Troy Matamoros MD in [place] 05/06/2021 07:33
== END ==
PROVIDERS: PCP Physician Assistant; Visit Provider Internal Medicine Pulmonary Disease
DX: R06.00 Dyspnea, unspecified (principal); R06.02 Shortness of breath; R91.1 Solitary pulmonary nodule; J44.9 Chronic obstructive pulmonary disease, unspecified; Z87.891 Personal history of nicotine dependence
CPT/HCPCS: 71250

== ENCOUNTER → 2021-10-06 14:37 | Outpatient (CLI) | payer MEDICAID, SELFPAY ==
[2021-10-06 17:28] LABS: Alanine Aminotransferase 12 U/L (12-78); Albumin Level 4.3 g/dl (3.5-5.0); Albumin/Globulin Ratio 1.7 (1.1-1.8); Alkaline Phosphatase 93 U/L (38-126); Anion Gap 10.9 mEq/L (5-15); Aspartate Amino Transferase 28 U/L (14-36); Bilirubin,Total 0.4 mg/dl (0.2-1.3); Blood Urea Nitrogen 4 mg/dl (7-17); Calcium 8.9 mg/dl (8.4-10.2); Carbon Dioxide 29 mmol/L (22.0-30.0); Chloride 100 mmol/L (98-107); Cholesterol 176 mg/dl (140-200); Estimated Glomerular Filt Rate 130 ml/min (>60); GFR (African American) 157 ML/MIN (>60); Globulin 2.6 g/dL (1.3-3.2); Glucose 88 mg/dl (74-100); HDL Cholesterol 58 mg/dl (40-60); Potassium 3.9 mmoL/L (3.5-5.1); Sodium 136 mmol/L (136-145); Total Protein,Serum 6.9 g/dl (6.3-8.2); Triglycerides 109 mg/dl (30-150); VLDL Cholesterol 22 mg/dL (0-40)
[2021-10-06 17:33] LABS: Basophils # 0.1 K/mm3 (0-0.2); Basophils % 1.3 % (0.1-2.0); Eosinophils # 0.1 K/mm3 (0.0-0.4); Eosinophils % 2.5 % (0.1-12.0); Hematocrit 37.1 % (37.0-47.0); Hemoglobin 11.5 g/dL (12.2-16.2); Lymphocytes # 1.6 K/mm3 (0.7-4.5); Lymphocytes % 34.1 % (10-50); Mean Corpuscular HGB Conc 30.9 g/dL (31.8-35.4); Mean Corpuscular Hemoglobin 31.7 pg (27.0-31.2); Mean Corpuscular Volume 102.5 fl (81-99); Mean Platelet Volume 9.7 fl (7.4-10.4); Monocytes # 0.3 K/mm3 (0.1-1.0); Monocytes % 7.4 % (1.7-9.3); Neutrophils # 2.5 K/mm3 (1.8-7.8); Neutrophils % 54.8 % (37.0-80.0); Platelet Count 336 K/mm3 (142-424); Red Blood Count 3.62 M/mm3 (4.20-5.40); Red Cell Distribution Width 12.9 % (11.5-17.5); White Blood Count 4.6 K/mm3 (4.8-10.8)
[2021-10-06 17:39] LABS: Direct LDL Cholesterol 79.89 mg/dL (100-129)
[2021-10-06 17:45] LABS: 25-OH Vitamin D, Total 80.4 ng/mL (30-100)
[2021-10-06 18:00] LABS: Thyroid Stimulating Hormone 0.64 uIU/mL (0.465-4.68)
[2021-10-06 18:18] LABS: Vitamin B12 270 pg/mL (239-931)
[2021-10-06 18:45] LABS: Ferritin 29.9 ng/ml (11.1-264)
== END ==
PROVIDERS: Visit Provider Physician Assistant
DX: R29.898 Other symptoms and signs involving the musculoskeletal system (principal); M25.511 Pain in right shoulder
CPT/HCPCS: 80053; 80061; 82306; 82607; 82728; 84443; 85025

== ENCOUNTER → 2021-10-07 10:29 | Outpatient (CLI) | payer MEDICAID, SELFPAY ==
[2021-10-07 13:29] LABS: Folate 9.78 ng/mL; Vitamin B12 246 pg/mL (239-931)
[2021-10-07 15:16] LABS: Iron 166 ug/dL (37-170)
[2021-10-07 15:26] LABS: Total Iron Binding Capacity 296 ug/dL (265-497)
== END ==
PROVIDERS: Visit Provider Physician Assistant
DX: M79.605 Pain in left leg (principal); M79.604 Pain in right leg; R53.1 Weakness
CPT/HCPCS: 82607; 82746; 83540; 83550

== ENCOUNTER → 2021-10-14 08:41 | Outpatient (CLI) | payer MEDICAID, SELFPAY ==
--- NOTE | 2021-10-14 08:41 | MR_ITS ---
FINAL REPORT CLINICAL HISTORY: right shoulder pain and decreased ROM. rt shoulder pain x2-3wks. no injury or trauma. weakness in arm. FINDINGS: Multiplanar MR imaging of the right shoulder was performed without contrast. There is motion artifact on many sequences. A partial-thickness, articular surface tear of the supraspinatus tendon is seen measuring greater than 50%. The infraspinatus tendon is intact. There is mild a.c. joint arthrosis with mild outlet narrowing. Spurring is seen at the undersurface of the acromion. There are multiple subchondral cysts in the superior humeral head. A small amount of fluid is present in the subacromial/subdeltoid bursa. No labral tear is identified. The long head of the biceps tendon is intact. No significant glenohumeral joint effusion is identified. The musculature is intact. There is no evidence of soft tissue mass or cyst. IMPRESSION: Partial-thickness, articular surface tear of the supraspinatus tendon, greater than 50%. Mild a.c. joint arthrosis with mild subacromial/subdeltoid bursitis. Reviewed, Interpreted and Dictated by Osvaldo Kolb III, MD Transcribed by Kristy Adams Authenticated by Osvaldo Kolb III, MD on 10/14/2021 11:19:04 AM [facility]
--- NOTE | 2021-10-14 08:48 | US_ITS ---
FINAL REPORT CLINICAL HISTORY: CLAUDICATION,SMOKER,NUMBNESS/BURNING BLE'S FINDINGS: ANKLE-BRACHIAL PRESSURE INDICES Pressure indices are as follows: RIGHT LOWER EXTREMITY: Ankle-brachial pressure index: 1.05 Comments: Normal LEFT LOWER EXTREMITY: Ankle-brachial pressure index: 1.05 Comments: Normal IMPRESSION: No evidence of significant obstructive peripheral vascular disease of the lower extremities Reviewed, Interpreted and Dictated by Osvaldo Kolb III, MD Transcribed by Kristy Adams Authenticated by Osvaldo Kolb III, MD on 10/14/2021 11:19:06 AM [facility]
== END ==
PROVIDERS: PCP Physician Assistant; Visit Provider Physician Assistant
DX: M25.511 Pain in right shoulder (principal); M79.605 Pain in left leg; M79.604 Pain in right leg
CPT/HCPCS: 73221; 93923

== ENCOUNTER → 2022-06-28 14:10 | Outpatient (CLI) | payer MEDICAID, SELFPAY ==
[2022-07-01 21:08] LABS: Neisseria gonorrhoeae, NAA Negative (Negative)
== END ==
PROVIDERS: PCP Physician Assistant; Visit Provider Physician Assistant
DX: N76.0 Acute vaginitis (principal); R39.9 Unspecified symptoms and signs involving the genitourinary system
CPT/HCPCS: 87086; 87210; 87491; 87591

== ENCOUNTER → 2022-08-15 13:06 | Outpatient (CLI) | payer MEDICAID, SELFPAY ==
--- NOTE | 2022-08-15 13:11 | XR_ITS ---
FINAL REPORT TECHNIQUE: Chest PA & Lateral CLINICAL HISTORY: Coughing, wheeze, COPD COMPARISON: May 2019 FINDINGS: 2 views of the chest were performed. The heart size is normal. The mediastinum is within normal limits. The lungs are hyperinflated consistent with COPD. There is no acute cardiopulmonary process. There are no pleural effusions. There is no pneumothorax. The bony thorax appears intact. IMPRESSION: No acute cardiopulmonary process. Reviewed, Interpreted and Dictated by Osvaldo Kolb III, MD Transcribed by David Roca Authenticated and [facility]
== END ==
PROVIDERS: PCP Physician Assistant; Visit Provider Physician Assistant
DX: R05.9 Cough, unspecified (principal); R06.2 Wheezing; J44.9 Chronic obstructive pulmonary disease, unspecified
CPT/HCPCS: 71046

== ENCOUNTER 2022-11-17 16:39 | Emergency (ER) | payer MEDICAID, SELFPAY ==
[2022-11-17] VITALS (7 sets, daily range): BP systolic 111–148; BP diastolic 72–91; PULSE 69–600; RESP 11–20; TEMP 36.6–36.8; O2SAT 95–100; BMI 20.1
--- NOTE | 2022-11-17 16:39 | ECG_ITS ---
APPROVED REPORT Exam: Resting ECG HR:97 bpm ECG Measurements Heart Rate 97 AXES ID 162 P 82 QRSd 97 QRS 58 QT 332 T 71 QTc 387 Conclusion SINUS RHYTHM INDETERMINATE AXIS NORMAL ECG UNCONFIRMED REPORT Electronically signed by : Mark Park MD 11/18/2022 09:32:55
[2022-11-17 17:06] LABS: Basophils % 0.6 % (0.1-2.0); Eosinophils # 0.3 K/mm3 (0.0-0.4); Eosinophils % 4.8 % (0.1-12.0); Hematocrit 40.8 % (37.0-47.0); Hemoglobin 12.8 g/dL (12.2-16.2); Lymphocytes % 32.9 % (10-50); Mean Corpuscular HGB Conc 31.3 g/dL (31.8-35.4); Mean Corpuscular Hemoglobin 31.4 pg (27.0-31.2); Mean Corpuscular Volume 100.1 fl (81-99); Mean Platelet Volume 8.2 fl (7.4-10.4); Monocytes # 0.4 K/mm3 (0.1-1.0); Monocytes % 6.5 % (1.7-9.3); Neutrophils # 3.4 K/mm3 (1.8-7.8); Neutrophils % 55.2 % (37.0-80.0); Platelet Count 296 K/mm3 (142-424); Red Blood Count 4.08 M/mm3 (4.20-5.40); Red Cell Distribution Width 13.1 % (11.5-17.5); White Blood Count 6.1 K/mm3 (4.8-10.8)
--- NOTE | 2022-11-17 17:12 | HMH.EDGENADL ---
Discharge Plan Disposition Patient Disposition: Home, Self-Care Condition: Good Chief Complaint: Shortness of Breath/Dyspnea Prescriptions Prescriptions: No Action baclofen 10 mg tablet 10 mg PO BID PRN (Reason: Pain) buprenorphine-naloxone 8-2 mg tablet, sublingual 2 tab SUBLINGUAL DAILY Label Comments: DISSOLVE 2 TABS UNDER THE TONGUE DAILY tizanidine 4 mg tablet 4 mg PO HS (DME) BD Regular Bevel Ambrose 25 gauge x 5/8 needle See Rx Instructions .Route Qty: 100 0RF Rx Instructions: As directed levothyroxine 137 mcg tablet See Rx Instructions .ROUTE .COMPLEX Rx Instructions: TAKE ONE TABLET BY MOUTH EVERY DAY potassium chloride 10 mEq capsule, extended release See Rx Instructions .ROUTE .COMPLEX Rx Instructions: TAKE ONE CAPSULE BY MOUTH TWICE DAILY albuterol sulfate 2.5 mg /3 mL (0.083 %) solution for nebulization See Rx Instructions .ROUTE .COMPLEX Rx Instructions: INHALE THE CONTENTS OF 1 VIAL VIA NEBULIZER EVERY 6 HOURS alendronate 70 mg tablet See Rx Instructions .ROUTE .COMPLEX Rx Instructions: TAKE ONE TABLET BY MOUTH ONCE a WEEK carvedilol 3.125 mg tablet See Rx Instructions .ROUTE .COMPLEX Rx Instructions: TAKE ONE TABLET BY MOUTH TWICE DAILY estradiol 1 mg tablet See Rx Instructions .ROUTE .COMPLEX Rx Instructions: TAKE ONE TABLET BY MOUTH EVERY DAY ropinirole 0.25 mg tablet See Rx Instructions .ROUTE .COMPLEX Rx Instructions: TAKE 1 TO 2 TABLET(S) BY MOUTH AT least 1 TO 3 hour(s) BEFORE bedtime FOR restless LEGS cyanocobalamin (vitamin B-12) 1,000 mcg/mL solution See Rx Instructions .ROUTE .COMPLEX Rx Instructions: INJECT 1 ML SUBCUTANEOUSLY daily FOR 7 DAYS, THEN WEEKLY FOR 4 WEEKS, THEN monthly FOR vitamin b12 deficiency omeprazole 20 mg capsule,delayed release(DR/EC) See Rx Instructions .ROUTE .COMPLEX Rx Instructions: TAKE ONE CAPSULE BY MOUTH EVERY DAY FOR gerd montelukast 10 mg tablet See Rx Instructions .ROUTE .COMPLEX Rx Instructions: TAKE ONE TABLET BY MOUTH EVERY DAY FOR allergies furosemide 20 mg tablet See Rx Instructions .ROUTE .COMPLEX Rx Instructions: TAKE ONE TABLET BY MOUTH EVERY DAY ergocalciferol (vitamin D2) 1,250 mcg (50,000 unit) capsule See Rx Instructions .ROUTE .COMPLEX Rx Instructions: TAKE ONE CAPSULE BY MOUTH ONCE A WEEK albuterol sulfate [Ventolin HFA] 90 mcg/actuation HFA aerosol inhaler See Rx Instructions .ROUTE .COMPLEX Rx Instructions: INHALE 2 puffs BY MOUTH EVERY 4 TO 6 HOURS NEEDED FOR SHORTNESS OF BREATH OR wheezing --SHAKE WELL BEFORE USE-- ondansetron 4 mg tablet,disintegrating 4 mg PO Q8H cholecalciferol (vitamin D3) 25 mcg (1,000 unit) tablet See Rx Instructions .ROUTE .COMPLEX Rx Instructions: TAKE ONE TABLET BY MOUTH EVERY DAY calcium carbonate-vitamin D3 600 mg-10 mcg (400 unit) tablet See Rx Instructions .ROUTE .COMPLEX Rx Instructions: TAKE ONE TABLET BY MOUTH EVERY DAY budesonide-formoterol [Symbicort] 160-4.5 mcg/actuation HFA aerosol inhaler See Rx Instructions .ROUTE .COMPLEX Rx Instructions: INHALE TWO PUFFS BY MOUTH EVERY TWELVE HOURS --RINSE MOUTH AFTER USE-- Slow Release Iron 142 mg (45 mg iron) tablet extended release See Rx Instructions .ROUTE .COMPLEX Rx Instructions: TAKE ONE TABLET BY MOUTH EVERY DAY Incruse Ellipta 62.5 mcg/actuation blister with device See Rx Instructions .ROUTE .COMPLEX Rx Instructions: INHALE 1 PUFF BY MOUTH EVERY DAY teriparatide 20 mcg/dose (620mcg/2.48mL) pen injector See Rx Instructions .ROUTE .COMPLEX Rx Instructions: inject 20 mcg SUBCUTANEOUSLY EVERY DAY (DME) BD Luer-Kaylin Syringe 3 mL 25 gauge x 1 syringe See Rx Instructions .ROUTE .COMPLEX Rx Instructions: USE DIRECTED FOR B12 INJECTIONS (
--- NOTE | 2022-11-17 17:15 | XR_ITS ---
PROCEDURE INFORMATION: Exam: XR Chest Exam date and time: 11/17/2022 5:09 PM Age: 52 years old Clinical indication: Shortness of breath; Additional info: SOA, copd TECHNIQUE: Imaging protocol: Radiologic exam of the chest. Views: 2 views. COMPARISON: CR XR CHEST 2V 08/15/2022 1:16 PM FINDINGS: Lungs: There are moderate centrilobular emphysematous changes of the lungs with an apical gradient. Pleuroparenchymal scarring of the lung bases with subsegmental atelectasis is present without large consolidations or pleural effusions. Calcified granulomas of the lungs unchanged from prior exam. Pleural spaces: See Lungs finding. Heart/Mediastinum: Unremarkable. No cardiomegaly. Bones/joints: Unremarkable. IMPRESSION: 1. There are moderate centrilobular emphysematous changes of the lungs with an apical gradient. 2. Pleuroparenchymal scarring of the lung bases with subsegmental atelectasis is present without large consolidations or pleural effusions.
[2022-11-17 17:16] LABS: INR 0.92 (0.9-1.1)
[2022-11-17 17:18] LABS: Chloride 103 mmol/L (98-107); Potassium 3.6 mmoL/L (3.5-5.1); Sodium 140 mmol/L (136-145)
[2022-11-17 17:21] LABS: Alanine Aminotransferase 16 U/L (12-78); Albumin Level 4.2 g/dl (3.5-5.0); Albumin/Globulin Ratio 1.4 (1.1-1.8); Alkaline Phosphatase 78 U/L (38-126); Anion Gap 8.6 mEq/L (5-15); Aspartate Amino Transferase 29 U/L (14-36); Bilirubin,Total 0.2 mg/dl (0.2-1.3); Blood Urea Nitrogen 5 mg/dl (7-17); Carbon Dioxide 32 mmol/L (22.0-30.0); Creatinine Clearance Estimated 116 mL/min (50-200); Estimated Glomerular Filt Rate 129 ml/min (>60); GFR (African American) 156 ML/MIN (>60); Globulin 2.9 g/dL (1.3-3.2); Total Protein,Serum 7.1 g/dl (6.3-8.2)
[2022-11-17 17:22] LABS: Calcium 8.6 mg/dl (8.4-10.2); Glucose 136 mg/dl (74-100)
[2022-11-17 17:33] LABS: D-Dimer 0.76 ug/mL (0.0-0.5)
[2022-11-17 17:34] LABS: Troponin I < 0.01 ng/ml (0.00-0.034)
[2022-11-17 17:52] LABS: Thyroid Stimulating Hormone 3.22 uIU/mL (0.465-4.68)
--- NOTE | 2022-11-17 18:11 | PC.NURSE ---
rounded on pt she is sleeping ,call light @ bs
--- NOTE | 2022-11-17 18:21 | PC.NURSE ---
gave pt blanker, no other needs at this time
--- NOTE | 2022-11-17 19:08 | CT_ITS ---
PROCEDURE INFORMATION: Exam: CTA Chest With Contrast Exam date and time: 11/17/2022 7:35 PM Age: 52 years old Clinical indication: Abnormal findings; Other: Elevated d-dimer; Additional info: Elevated dimer, cp, SOA, history of pe TECHNIQUE: Imaging protocol: Computed tomographic angiography of the chest with contrast. 3D rendering (Not supervised by radiologist): MIP and/or 3D reconstructed images were created by the technologist. Radiation optimization: All CT scans at this facility use at least one of these dose optimization techniques: automated exposure control; mA and/or kV adjustment per patient size (includes targeted exams where dose is matched to clinical indication); or iterative reconstruction. Contrast material: ISOVUE; Contrast volume: 70 ml; Contrast route: INTRAVENOUS (IV); REPORTING DATA: Count of CT and Cardiac NM exams in prior 12 months: This patient has received 0 known CTs and 0 known cardiac nuclear medicine studies in the 12 months prior to the current study. COMPARISON: CT CHEST WO CON 05/05/2021 3:57 PM FINDINGS: Pulmonary arteries: Normal. No pulmonary emboli. Aorta: Unremarkable. No aortic aneurysm. No aortic dissection. Lungs: There are severe centrilobular emphysematous changes of the lungs with an apical gradient. Dependent bilateral lung base opacities favor atelectasis. Pleural spaces: Unremarkable. No pneumothorax. No pleural effusion. Heart: Unremarkable. No cardiomegaly. No pericardial effusion. Lymph nodes: Unremarkable. No enlarged lymph nodes. Bones/joints: Unremarkable. No acute fracture. Soft tissues: Unremarkable. IMPRESSION: There are severe centrilobular emphysematous changes of the lungs with an apical gradient. No CT angiography evidence of pulmonary embolism. COMMENTS: In the absence of a history or active diagnosis of lung cancer, it is recommended that this patient with emphysema be evaluated for enrollment in a low dose CT lung cancer screening program.
--- NOTE | 2022-11-17 19:32 | PC.NURSE ---
Pt gone to RAD via wheelchair
--- NOTE | 2022-11-17 19:45 | PC.NURSE ---
Pt back from RAD
[2022-11-17 20:53] LABS: Troponin I < 0.01 ng/ml (0.00-0.034)
== END 2022-11-17 20:26 | disposition home or self-care (01) ==
PROVIDERS: Emergency Provider Emergency Medicine; PCP Physician Assistant
DX: J44.1 Chronic obstructive pulmonary disease with (acute) exacerbation (principal); R07.9 Chest pain, unspecified; Z87.891 Personal history of nicotine dependence
CPT/HCPCS: 36415; 71046; 71275; 80053; 84436; 84443; 84484; 85025; 85378; 85610; 93005; 96360; 96374; 99285; Q9967

== ENCOUNTER → 2022-11-25 14:09 | Outpatient (CLI) | payer MEDICAID, SELFPAY ==
--- NOTE | 2022-11-25 14:12 | CA_ITS ---
FINAL REPORT TECHNIQUE: Color Doppler, duplex Doppler and compression sonography of the left lower extremity deep venous systems was performed. CLINICAL HISTORY: pain and swelling LLE FINDINGS: There is no evidence of deep venous thrombosis from the level of the groin to the calf. The veins are patent and compressible. IMPRESSION: No evidence of deep venous thrombosis left lower extremity. Reviewed, Interpreted and Dictated by Osvaldo Kolb III, MD Transcribed by Lily Mohamud Authenticated and [facility]
== END ==
PROVIDERS: PCP Physician Assistant; Visit Provider Physician Assistant
DX: M79.605 Pain in left leg (principal); R22.42 Localized swelling, mass and lump, left lower limb
CPT/HCPCS: 93971

== ENCOUNTER → 2022-12-06 15:21 | Outpatient (CLI) | payer MEDICAID, SELFPAY | PROVIDERS: PCP Physician Assistant; Visit Provider Physician Assistant | DX: R06.02 Shortness of breath (principal) | CPT/HCPCS: 93306 ==

== ENCOUNTER → 2023-03-01 13:15 | Outpatient (CLI) | payer MEDICAID, SELFPAY ==
--- NOTE | 2023-03-01 13:19 | CT_ITS ---
FINAL REPORT CLINICAL HISTORY: H/O TOBACCO USE current smoker- 1.5 pack x 41 years COMPARISON: 05/05/2021 FINDINGS: CT CHEST LOW DOSE SCREENING HISTORY: Screening exam for lung cancer. Current smoker, 60 pack year smoking history DOSE: CTDIvol: 2.9 mGy, DLP: 103.68 mGy*cm COMPARISON: 05/05/2021. TECHNIQUE: Axial CT without IV contrast administration using low dose protocol FINDINGS: Changes of severe emphysema are present. There is a new small ovoid nodule in the right perihilar region seen best on image #51 series 3, which measures 3 x 5 mm in size, favor intrafissural lymph node. There is a left lower lobe perihilar nodule, 8 x 5 mm in size, unchanged since the prior exam. There is chronic scarring in the posterior right lower lobe. No pleural or pericardial effusion is seen . No adenopathy is present . IMPRESSION: Interval development of a new small oval nodule in the right perihilar region, favor intra-fissural node. There is a left lower lobe perihilar nodule 8 x 5 mm, unchanged. Severe changes of emphysema. LUNG RADS CATEGORY 2 RECOMMENDATION: 12 month LDCT follow up Reviewed, Interpreted and Dictated by Hesham Flowers MD Transcribed by Janett Bolden Authenticated and . [facility]
== END ==
PROVIDERS: PCP Physician Assistant; Visit Provider Nurse Practitioner
DX: Z87.891 Personal history of nicotine dependence (principal); Z12.2 Encounter for screening for malignant neoplasm of respiratory organs
CPT/HCPCS: 71271

== ENCOUNTER → 2023-04-19 13:41 | Outpatient (CLI) | payer MEDICAID, SELFPAY ==
--- NOTE | 2023-04-19 13:58 | XR_ITS ---
FINAL REPORT CLINICAL HISTORY: Right hand pain COMPARISON: None FINDINGS: RIGHT HAND: 3 views of the right hand were obtained. There is no acute fracture or dislocation. There is mild degenerative change of the 1st CMC. Visualized joint spaces are normally aligned. Soft tissues are unremarkable. IMPRESSION: Mild degenerative change without acute bony abnormality. Reviewed, Interpreted and Dictated by Osvaldo Kolb III, MD Transcribed by Cadence Lu Authenticated and . [facility]
--- NOTE | 2023-04-19 13:58 | XR_ITS ---
FINAL REPORT CLINICAL HISTORY: left hand pain and swelling COMPARISON: None FINDINGS: LEFT HAND: 3 views of the left hand were obtained. There is no acute fracture or dislocation. There is mild degenerative change at the 1st CMC. Visualized joint spaces are normally aligned. Soft tissues are unremarkable. IMPRESSION: Mild degenerative change without acute bony abnormality. Reviewed, Interpreted and Dictated by Osvaldo Kolb III, MD Transcribed by Cadence Lu Authenticated and [facility]
[2023-04-19 14:17] LABS: Basophils # 0.1 K/mm3 (0-0.2); Basophils % 0.9 % (0.1-2.0); Eosinophils # 0.3 K/mm3 (0.0-0.4); Eosinophils % 5.2 % (0.1-12.0); Hematocrit 37.9 % (37.0-47.0); Hemoglobin 11.6 g/dL (12.2-16.2); Lymphocytes # 1.6 K/mm3 (0.7-4.5); Lymphocytes % 32.8 % (10-50); Mean Corpuscular HGB Conc 30.7 g/dL (31.8-35.4); Mean Corpuscular Hemoglobin 30.9 pg (27.0-31.2); Mean Corpuscular Volume 100.8 fl (81-99); Mean Platelet Volume 8.5 fl (7.4-10.4); Monocytes # 0.3 K/mm3 (0.1-1.0); Monocytes % 5.8 % (1.7-9.3); Neutrophils # 2.8 K/mm3 (1.8-7.8); Neutrophils % 55.4 % (37.0-80.0); Platelet Count 306 K/mm3 (142-424); Red Blood Count 3.76 M/mm3 (4.20-5.40); Red Cell Distribution Width 13.6 % (11.5-17.5)
[2023-04-19 14:54] LABS: Alanine Aminotransferase 13 U/L (12-78); Albumin Level 3.8 g/dl (3.5-5.0); Albumin/Globulin Ratio 1.4 (1.1-1.8); Alkaline Phosphatase 114 U/L (38-126); Aspartate Amino Transferase 25 U/L (14-36); Bilirubin,Total 0.2 mg/dl (0.2-1.3); Blood Urea Nitrogen 8 mg/dl (7-17); Carbon Dioxide 33 mmol/L (22.0-30.0); Chol/HDL Ratio 2.1 (1-3.5); Cholesterol 139 mg/dl (140-200); Estimated Glomerular Filt Rate 104 ml/min (>60); GFR (African American) 126 ML/MIN (>60); Globulin 2.8 g/dL (1.3-3.2); Glucose 77 mg/dl (74-100); HDL Cholesterol 67 mg/dl (40-60); Potassium 4.5 mmoL/L (3.5-5.1); Sodium 139 mmol/L (136-145); Total Protein,Serum 6.6 g/dl (6.3-8.2); Triglycerides 110 mg/dl (30-150); VLDL Cholesterol 22 mg/dL (0-40)
[2023-04-19 14:55] LABS: Erythrocyte Sedimentation Rate 23 mm/hr (0-30)
[2023-04-19 15:05] LABS: Anion Gap 9.5 mEq/L (5-15); C-Reactive Protein 4.3 mg/L (0-4); Chloride 101 mmol/L (98-107); Direct LDL Cholesterol 48.66 mg/dL (100-129)
[2023-04-19 15:08] LABS: 25-OH Vitamin D, Total 63.1 ng/mL (30-100)
[2023-04-19 15:23] LABS: Thyroid Stimulating Hormone 5.24 uIU/mL (0.465-4.68)
[2023-04-21 11:55] LABS: RA Latex Turbid. 606.3 IU/mL (<14.0)
[2023-04-21 17:41] LABS: Anti-Centromere B Antibodies <0.2 AI (0.0-0.9); Anti-Cyclic Citrullinated Pept 56 units (0-19); Anti-DNA (DS) Ab Qn 1 IU/mL (0-9); Anti-Jo-1 <0.2 AI (0.0-0.9); Anti-Smith Antibody <0.2 AI (0.0-0.9); Antichromatin Antibodies <0.2 AI (0.0-0.9); Antiscleroderma-70 Antibodies <0.2 AI (0.0-0.9); RNP Antibodies <0.2 AI (0.0-0.9); Sjogren's Anti-SS-A <0.2 AI (0.0-0.9); Sjogren's Anti-SS-B <0.2 AI (0.0-0.9)
[2023-04-27 14:15] LABS: APTT 29.2 sec (.); Anti-Cardiolipin Antibody IgG <10 GPL (.); Anti-Cardiolipin Antibody IgM <10 MPL (.); Beta-2 Glycoprotein I Ab, IgA <10 SAU (.); Beta-2 Glycoprotein I Ab, IgG <10 SGU (.); Beta-2 Glycoprotein I Ab, IgM <10 SMU (.); Hexagonal Phase Phospholipid 6 sec (.); Prothrombin Time 10.5 sec (.); Thrombin Time 15.4 sec (.)
== END ==
LOC: LAB 13:41
PROVIDERS: PCP Physician Assistant; Visit Provider Physician Assistant
DX: M79.641 Pain in right hand (principal); M79.642 Pain in left hand; R06.09 Other forms of dyspnea; R68.89 Other general symptoms and signs; R05.9 Cough, unspecified
CPT/HCPCS: 36415; 73130; 80053; 80061; 82306; 84443; 85025; 85597; 85598; 85610; 85613; 85651; 85670; 85730; 86140; 86146; 86147; 86200; 86225; 86235; 86431

== ENCOUNTER → 2023-05-08 14:42 | Outpatient (CLI) | payer MEDICAID, SELFPAY ==
[2023-05-10 10:47] LABS: HBsAg Screen Negative (Negative); HCV Ab Non Reactive (Non Reactive); Hep A Ab, IGM Negative (Negative); Hep B Core Ab, IgM Negative (Negative)
[2023-05-10 14:12] LABS: Anti-DNA (DS) Ab Qn <1 IU/mL (0-9); H. pylori Breath Test Negative (Negative)
== END ==
PROVIDERS: PCP Physician Assistant; Visit Provider Physician Assistant
DX: R10.13 Epigastric pain (principal); R89.9 Unspecified abnormal finding in specimens from other organs, systems and tissues; M79.641 Pain in right hand; M79.642 Pain in left hand
CPT/HCPCS: 36415; 80074; 83013; 86225

== ENCOUNTER → 2023-07-10 16:32 | Outpatient (CLI) | payer MEDICAID, SELFPAY ==
--- NOTE | 2023-07-10 16:35 | XR_ITS ---
PROCEDURE INFORMATION: Exam: XR Chest Exam date and time: 07/10/2023 4:47 PM Age: 53 years old Clinical indication: Cough and other: Pneumonia; Additional info: Pneumonia. Smoker x 20 yrs TECHNIQUE: Imaging protocol: Radiologic exam of the chest. Views: 2 views. COMPARISON: CT LUNG SCREENING 03/01/2023 1:23 PM FINDINGS: Lungs: Severe emphysema with fibrotic changes and dependent subsegmental atelectasis in the right lung base, not significantly changed from 03/01/[address] accounting for differences in modality. No evidence of new or worsening airspace disease. Pleural spaces: No significant pleural effusion. No pneumothorax. Heart/Mediastinum: Cardiomediastinal silouhette is within normal limits. Bones/joints: No evidence of acute osseous abnormality. Chronic compression fracture deformities in the midthoracic spine are not significantly changed from 03/01/2023 CT. IMPRESSION: No evidence of acute cardiopulmonary disease.
== END ==
PROVIDERS: PCP Physician Assistant; Visit Provider Physician Assistant
DX: J18.9 Pneumonia, unspecified organism (principal)
CPT/HCPCS: 71046

== ENCOUNTER 2023-12-02 14:46 | Inpatient (IN) | payer MEDICAID, SELFPAY ==
[2023-12-02] VITALS (9 sets, daily range): BP systolic 100–130; BP diastolic 57–86; PULSE 95–125; RESP 14–24; TEMP 37.1–38.1; O2SAT 80–97; BMI 25.4; BMI 19.7
--- NOTE | 2023-12-02 14:49 | ECG_ITS ---
APPROVED REPORT Exam: Resting ECG HR:123 bpm ECG Measurements Heart Rate 123 AXES IA 158 P 69 QRSd 84 QRS 218 QT 288 T 61 QTc 361 Conclusion SINUS TACHYCARDIA POSSIBLE RIGHT VENTRICULAR HYPERTROPHY [SOME/ALL OF: PROMINENT R IN V1, LATE TRANSITION, RAD, DAVID, SSS] Electronically signed by : CE ANAYA, 12/03/2023 00:03:38
[2023-12-02 14:55] LABS: Coronavirus 19, PCR Not Detected (NotDetected); Influenza A, PCR Not Detected (NotDetected); Influenza B, PCR Not Detected (NotDetected)
--- NOTE | 2023-12-02 15:20 | XR_ITS ---
PROCEDURE INFORMATION: Exam: XR Chest Exam date and time: 12/02/2023 3:28 PM Age: 53 years old Clinical indication: Cough; Additional info: Cough, SOA, fever TECHNIQUE: Imaging protocol: Radiologic exam of the chest. Views: 1 view. Total images: 1 COMPARISON: CR XR CHEST 2V 07/10/2023 4:47 PM FINDINGS: Lungs: Atelectatic and/or early infiltrative changes noted within the right lower lobe. Bilateral hyperinflation is present. Atelectatic changes noted within the left lung base. Pleural spaces: No evidence of pneumothorax. Heart/Mediastinum: The heart is not enlarged. Bones/joints: The thoracic spine demonstrates mild degenerative changes at multiple levels. IMPRESSION: 1. Atelectatic and/or early infiltrative changes noted within the right lower lobe. 2. Bilateral hyperinflation is present. 3. Atelectatic changes noted within the left lung base. 4. No evidence of pneumothorax.
[2023-12-02] MEDS: IPRATROPIUM/ALBUTEROL 3 ML NEB 9 ML IH (15:30)
[2023-12-02] MEDS: LACTATED RINGERS 1000ML 1,370 ML 685 ML IV (15:30)
[2023-12-02] MEDS: METHYLPREDNISOLONE SOD SUCC 125MG VIAL 125 MG IV (15:31)
--- NOTE | 2023-12-02 15:31 | PC.NURSE ---
respiratory aware of vbg order
[2023-12-02 15:37] LABS: Lactate Venous 1.6 mmol/L (0.4-2.0); VBG Base Excess 5.9 mmol/L (-2.4-2.3); VBG HCO3 31.2 mmol/L (23-30); VBG Oxygen Saturation 89.4 % (50-70); VBG PH 7.37 mmol/L (7.31-7.41); VBG PO2 56.9 mmol/L (28-40)
[2023-12-02 15:40] LABS: VBG PCO2 55.8 mmol/L (35-51)
[2023-12-02 15:46] LABS: Basophils # 0.1 K/mm3 (0-0.2); Basophils % 0.6 % (0.1-2.0); Eosinophils # 0.1 K/mm3 (0.0-0.4); Eosinophils % 0.4 % (0.1-12.0); Hematocrit 38.8 % (37.0-47.0); Hemoglobin 12.4 g/dL (12.2-16.2); Lymphocytes # 0.9 K/mm3 (0.7-4.5); Lymphocytes % 5.5 % (10-50); Mean Corpuscular HGB Conc 31.9 g/dL (31.8-35.4); Mean Corpuscular Hemoglobin 32.6 pg (27.0-31.2); Mean Corpuscular Volume 102.1 fl (81-99); Mean Platelet Volume 8.2 fl (7.4-10.4); Monocytes # 0.8 K/mm3 (0.1-1.0); Monocytes % 4.6 % (1.7-9.3); Neutrophils # 14.7 K/mm3 (1.8-7.8); Neutrophils % 88.9 % (37.0-80.0); Platelet Count 465 K/mm3 (142-424); Red Cell Distribution Width 14.1 % (11.5-17.5); White Blood Count 16.6 K/mm3 (4.8-10.8)
[2023-12-02 15:54] LABS: MANUAL DIFFERENTIAL MANUAL DIFFERENTIAL (MANUAL DIFF)
[2023-12-02 15:55] LABS: Chloride 101 mmol/L (98-107)
[2023-12-02 15:56] LABS: Potassium 4.1 mmoL/L (3.5-5.1); Sodium 137 mmol/L (136-145)
[2023-12-02 15:58] LABS: Alanine Aminotransferase 13 U/L (12-78); Alkaline Phosphatase 141 U/L (38-126); Anion Gap 6.1 mEq/L (5-15); Aspartate Amino Transferase 22 U/L (14-36); Bilirubin,Total 0.5 mg/dl (0.2-1.3); Blood Urea Nitrogen 8 mg/dl (7-17); Carbon Dioxide 34 mmol/L (22.0-30.0); Creatinine Clearance Estimated 120 mL/min (50-200); Estimated Glomerular Filt Rate 129 ml/min (>60); GFR (African American) 156 ML/MIN (>60)
[2023-12-02 15:59] LABS: Albumin Level 3.4 g/dl (3.5-5.0); Albumin/Globulin Ratio 0.9 (1.1-1.8); Calcium 9.2 mg/dl (8.4-10.2); Globulin 3.6 g/dL (1.3-3.2); Glucose 140 mg/dl (74-100)
[2023-12-02 16:08] LABS: NT Pro Brain Natriuretic Pep. 375 pg/mL (0-125)
[2023-12-02 16:14] LABS: Troponin I < 0.01 ng/ml (0.00-0.034)
[2023-12-02 16:25] LABS: C-Reactive Protein 213.9 mg/L (0-4)
[2023-12-02] MEDS: CEFTRIAXONE SODIUM 2 GM in 0.9 % SODIUM CHLORIDE 100 ML IV (16:31)
[2023-12-02] MEDS: AZITHROMYCIN 500 MG in 0.9 % SODIUM CHLORIDE 250 ML 250 MG IV (16:34)
[2023-12-02 16:41] LABS: Procalcitonin 0.205 ng/mL (0.0-2.0)
--- NOTE | 2023-12-02 16:48 | PC.NURSE ---
call made to powerhouse engineer for bed placement
--- NOTE | 2023-12-02 16:50 | EXP.HP ---
History of Present Illness *Admission Date: 12/02/23 *Reason for visit:: Short of breath *History of present illness: Ms. Nunez is a pleasant 53-year-old female with history of COPD, on 3 L nasal cannula at night, history of hypertension, GERD, Suboxone dependence, restless leg tobacco use disorder. She presented to the ER with report of fevers, chills, cough and increased shortness of breath along with right-sided chest pain over the past 3 to 4 days. Notes that she has been feeling bad progressively for a week but worse over the past 3 to 4 days. Was weak and had a hard time getting up today. Family had to help her. Had to turn her home oxygen up to 3 L continuous to prevent hypoxia. On arrival to the ER, patient found to be febrile, tachycardic, tachypneic. Workup concerning for pneumonia with right lower lobe consolidation on chest x-ray. Elevated white count. Initiated on ceftriaxone and azithromycin. Medicine consulted for admission and further management. On evaluation, patient appears uncomfortable. Complaining of right-sided chest wall pain that has gotten worse with coughing and deep breathing. Denies any nausea or vomiting. Denies any diarrhea. Denies any loss of consciousness. Smokes about 6 cigarettes a day and uses a vape. [facility] Disclaimer: The information contained in this section may have been updated after the patient was seen, as this information can be updated by other users. Medical History Hypothyroidism (~03/22/18) Epigastric pain Anorexia Early satiety Unexplained weight loss Interstitial cystitis Allergic rhinitis GERD (gastroesophageal reflux disease) Low back pain Edema Vitamin D deficiency Hypertension COPD (chronic obstructive pulmonary disease) Family History (Updated 12/02/23 @ 17:52 by Holly Corbett RN) Other Family history of acute congestive heart failure Social History (Updated 12/02/23 @ 17:52 by Holly Corbett RN) Smoking Status: Current every day smoker tobacco type: cigarettes packs per day: 1 alcohol intake: never substance use type: former substance user, opiates and painkillers current occupational status: unemployed and disabled Travel in the last 8 weeks: None household members: spouse and family housing: house caffeine: Yes Review of Systems Review of Systems Review of systems (narrative): 14 point review of systems performed, pertinent positives and negatives as per HPI Meds Home Medications and Allergies Home Medications Medication Instructions Recorded Confirmed Type buprenorphine 8 mg-naloxone 2 mg 2 tab sublingual DAILY Chronic Pain 08/19/19 12/02/23 History sublingual tablet baclofen 10 mg tablet 10 mg PO BID PRN Pain 02/02/21 12/02/23 History tizanidine 4 mg tablet 4 mg PO HS Pain 10/06/21 12/02/23 History needle (disp) 25 gauge 25 gauge x #100 ea 10/07/21 09/13/23 Rx 5/8 (BD Regular Bevel [place]) albuterol sulfate 2.5 mg/3 mL See Rx Instructions .Route 11/17/22 12/02/23 History (0.083 %) solution for nebulization .COMPLEX Breathing problems budesonide-formoterol HFA 160 See Rx Instructions .Route 11/17/22 12/02/23 History mcg-4.5 mcg/actuation aerosol .COMPLEX Breathing problems inhaler (Symbicort) nebulizer accessories 11/17/22 09/13/23 History teriparatide 20 mcg/dose (620 See Rx Instructions .Route 11/17/22 12/02/23 History mcg/2.48 mL) subcutaneous pen .COMPLEX Supplement injector umeclidinium 62.5 mcg/actuation See Rx Instructions .Route 11/17/22 12/02/23 History blister powder for inhalation .COMPLEX Breathing problems (Incruse Ellipta) carvedilol 3.125 mg tablet See Rx Instructions .Route 12/21/22 12/02/23 Rx .COMPLEX #180 tabs potassium chloride 10 mEq See Rx Instructions .Route 12/21/22 12/02/23 Rx capsule,extended release .COMPLEX #180 caps estradiol 1 mg tablet See Rx Instructions .Route 12/23/22 12/02/23 Rx .COMPLEX #90 tabs montelukast 10 mg tablet See Rx Instructions .Route 12/23/22 12/02/23 Rx .COMPLEX #90 tabs ferrous sulfate 142 mg (45 mg See Rx Instructions .Route 01/05/23 12/02/23 Rx iron) tablet,extended release .COMPLEX #90 tabs (Slow Release Iron) calcium carbonate 600 mg-vitamin See Rx Instructions .Route 01/06/23 12/02/23 Rx D3 10 mcg (400 unit) tablet .COMPLEX #90 tabs pen needle, diabetic 31 gauge x ##100 01/13/23 09/13/23 Rx 3/16 (BD Ultra-Fine Mini Pen Needle) levothyroxine 137 mcg tablet 137 mcg PO DAILY Thyroid #90 tabs 02/07/23 12/02/23 Rx budesonide 1 mg/2 mL suspension 1 mg inhalation BID 04/18/23 12/02/23 History for nebulization formoterol fumarate 20 mcg/2 mL 20 mcg inhalation BID 04/18/23 12/02/23 History solution for nebulization gabapentin 600 mg tablet 600 mg PO TID 04/18/23 12/02/23 History revefenacin 175 mcg/3 mL solution 175 mcg inhalation QID 04/18/23 12/02/23 History for nebulization (Yupelri) albuterol sulfate 90 mcg/actuation See Rx Instructions .Route 07/05/23 12/02/23 Rx aerosol inhaler (Ventolin HFA) .COMPLEX #18 grams furosemide 20 mg tablet See Rx Instructions .Route 07/10/23 12/02/23 Rx .COMPLEX #90 tabs cholecalciferol (vitamin D3) 25 See Rx Instructions .Route 07/17/23 12/02/23 Rx mcg (1,000 unit) tablet .COMPLEX #90 tabs ergocalciferol (vitamin D2) 1,250 See Rx Instructions .Route 07/17/23 12/02/23 Rx mcg (50,000 unit) capsule .COMPLEX #14 caps omeprazole 20 mg capsule,delayed See Rx Instructions .Route 08/23/23 12/02/23 Rx release .COMPLEX #90 caps metronidazole 500 mg tablet 500 mg PO Q8H #30 tabs 09/13/23 12/02/23 Rx ropinirole 0.25 mg tablet See Rx Instructions .Route 09/13/23 12/02/23 Rx .COMPLEX #60 tabs cyanocobalamin (vitamin B-12) See Rx Instructions .Route 10/26/23 12/02/23 Rx 1,000 mcg/mL injection solution .COMPLEX #25 mL hydroxyzine pamoate 25 mg capsule 25 mg PO TID PRN itching #90 caps 10/26/23 12/02/23 Rx (Vistaril) phenazopyridine 200 mg tablet 200 mg PO TID PRN pain 6 doses #6 10/26/23 12/02/23 Rx (Pyridium) tabs syringe with needle 3 mL 25 gauge #4 ea 10/26/23 Rx x 1 (BD Luer-Kaylin Syringe) alendronate 70 mg tablet See Rx Instructions .Route 11/28/23 12/02/23 Rx .COMPLEX #5 tabs ibuprofen 800 mg tablet See Rx Instructions .Route 12/02/23 12/02/23 History .COMPLEX PRN Pain New Prescriptions to Start Prescriptions: Allergies Allergy/AdvReac Type Severity Reaction Status Date / Time cefaclor [From CECLOR] Allergy Unknown CAUSES Verified 09/13/23 15:01 YEAST INFECTION Sulfa (Sulfonamide Allergy Unknown I-RASH Verified 09/13/23 15:01 Antibiotics) [SULFA (SULFONAMIDE ANTIBIOTICS)] sulfamethoxazole Allergy Unknown I-RASH Verified 09/13/23 15:01 [From BACTRIM] trimethoprim [From BACTRIM] Allergy Unknown I-RASH Verified 09/13/23 15:01 Exam Data for Last 24 hours Vital signs and Labs for Last 24 Hours: Temp Pulse Resp BP Pulse Ox O2 Del Method O2 Flow Rate 100.6 F H 118 H 16 109/66 L 94 L Nasal Cannula 3 12/02/23 14:47 12/02/23 15:31 12/02/23 16:15 12/02/23 16:15 12/02/23 15:31 12/02/23 15:31 12/02/23 15:31 Laboratory Results - last 24 hr 12/02/23 14:49: WBC 16.6 H, RBC 3.80 L, Hgb 12.4, Hct 38.8, MCV 102.1 H, MCH 32.6 H, MCHC 31.9, RDW 14.1, Plt Count 465 H, MPV 8.2, Neut % (Auto) 88.9 H, Lymph % (Auto) 5.5 L, [place] % (Auto) 4.6, Eos % (Auto) 0.4, Baso % (Auto) 0.6, Neut # (Auto) 14.7 H, Lymph # (Auto) 0.9, [place] # (Auto) 0.8, Eos # (Auto) 0.1, Baso # (Auto) 0.1, Sodium 137, Potassium 4.1, Chloride 101, Carbon Dioxide 34 H, Anion Gap 6.1, BUN 8, Creatinine 0.50 L, Estimated Creat Clear 120, Estimated GFR 129, Est GFR ( Amer) 156, Glucose 140 H, Calcium 9.2, Total Bilirubin 0.5, AST 22, ALT 13, Alkaline Phosphatase 141 H, Troponin I < 0.01, C-Reactive Protein 213.9 H, NT-Pro-B Natriuret Pep 375 H, Total Protein 7.0, Albumin 3.4 L, Globulin 3.6 H, Albumin/Globulin Ratio 0.9 L, Procalcitonin 0.205, SARS-CoV-2 (PCR) Not detected, Influenza A Untype (PCR) Not detected, Influenza Type B (PCR) Not detected 12/02/23 15:31: VBG pH 7.37, VBG pCO2 55.8 H, VBG pO2 56.9 H, VBG HCO3 31.2 H, VBG Total CO2 33.0 H, VBG O2 Saturation 89.4 H, VBG Base Excess 5.9 H, VBG Lactic Acid 1.6 I & O for Last 24 hours: Intake & Output 11/29/23 11/30/23 12/01/23 12/02/23 23:59 23:59 23:59 23:59 Weight 58.967 kg Constitutional Constitutional: mild distress, average body habitus, chronically ill appearing and cooperative *Routine HEENT Exam Head: Present normocephalic Eye: Present EOMI and PERRL ENT: Present mucous membranes moist *Routine Neck Exam Neck: Present supple; Absent lymphadenopathy *Routine Respiratory Exam Respiratory: Present prolonged expiratory phase, rhonchi, wheezes and crackles (worse in right lower lung field) *Routine Cardiovascular Exam Cardiovascular: Present tachycardia *Routine Abdominal Exam Abdominal: Present soft and normoactive bowel sounds; Absent tenderness *Routine Rectal Exam Rectal:: deferred *Routine Genitalia Exam Genitalia:: deferred *Routine Extremities Exam Extremities: Absent cyanosis, clubbing or edema *Routine Skin Exam Skin: Present warm; Absent rash *Routine Neurological Exam Neurological: Present alert, oriented X3 and moving all extremities; Absent altered mental status Assessment and Plan *Assessment and plan (1) Sepsis due to pneumonia: Status: Acute Category: Medical Code(s): J18.9 - Pneumonia, unspecified organism; A41.9 - Sepsis, unspecified organism (2) Respiratory failure: Status: Acute Category: Medical Code(s): J96.90 - Respiratory failure, unspecified, unspecified whether with hypoxia or hypercapnia (3) Tobacco dependence: Status: Chronic Category: Medical Code(s): F17.200 - Nicotine dependence, unspecified, uncomplicated (4) Osteoporosis: Status: Chronic Category: Medical Code(s): M81.0 - Age-related osteoporosis without current pathological fracture (5) Hypothyroidism: Status: Chronic Qualifiers: Hypothyroidism type: unspecified Qualified Code(s): E03.9 - Hypothyroidism, unspecified Category: Medical Code(s): E03.9 - Hypothyroidism, unspecified (6) GERD (gastroesophageal reflux disease): Status: Chronic Qualifiers: Esophagitis presence: esophagitis presence not specified Qualified Code(s): K21.9 - Gastro-esophageal reflux disease without esophagitis Category: Medical Code(s): K21.9 - Gastro-esophageal reflux disease without esophagitis (7) Hypertension: Status: Chronic Qualifiers: Hypertension type: essential hypertension Qualified Code(s): I10 - Essential (primary) hypertension Category: Medical Code(s): I10 - Essential (primary) hypertension (8) COPD (chronic obstructive pulmonary disease): Status: Chronic Qualifiers: COPD type: unspecified COPD Qualified Code(s): J44.9 - Chronic obstructive pulmonary disease, unspecified Category: Medical Code(s): J44.9 - Chronic obstructive pulmonary disease, unspecified Plan 53-year-old female with history of COPD who continues to smoke. Condition complicated by opiate use disorder on gabapentin and Suboxone. Presented to the ER with 3 to 4 days of worsening shortness of breath, cough, increased phlegm production. Having subjective fevers at home. Developed right-sided chest wall pain with deep breathing and coughing. On arrival to the ER, meeting sepsis criteria and found to have pneumonia. Discussed case with ER physician, request admission for continued IV antibiotics and monitoring of cultures. Medicine agreed to admit. Currently on 4 L nasal cannula oxygen with sats above 90%. Appears quite uncomfortable with right-sided chest pain with deep breathing. Feels somewhat better after receiving breathing treatments in the ER. Problems addressed as follows: Sepsis Pneumonia COPD -Chest imaging personally reviewed shows right lower lobe consolidation and hyperinflation. Meeting sepsis criteria with elevated white count of 1, increased oxygen requirement from baseline, tachycardia, and fever. -Initiated on ceftriaxone and azithromycin. Continue IV daily 1 g ceftriaxone and 500 mg azithromycin -Methylprednisolone administered in the ER, continue 40 mg prednisone daily given concern for pleuritic component to her chest wall pain -Supplemental oxygen as needed, currently on 4 L (baseline 3 L at night only). Maintain sats greater 90% -DuoNebs every 6 hours scheduled and budesonide twice daily -Continue home Singulair -Sputum culture pending; COVID and flu negative, comprehensive panel pending -CBC, CMP, magnesium ordered for the morning. -CRP elevated at 213, repeat in the morning Opiate use disorder: Continue home Suboxone 8/2 mg 2 tablets daily Continue home gabapentin 600 mg 3 times a day Continue home levothyroxine 137 mcg daily Continue home coreg 3.125mg bid for HTN Tobacco use disorder: Smokes less than half pack a day. Continue 14 mg nicotine patch daily as needed Full code Regular diet Lovenox 40 mg subcu daily
[2023-12-02 16:56] LABS: Eosinophils % 2 % (0-3); Lymphocytes % 6 % (10-50); Monocytes % 2 % (2-9); Neutrophils % 90 % (42-76); Total Cells Counted 100
[2023-12-02 16:57] LABS: Platelet Estimate Normal; Stomatocytes 1+
--- NOTE | 2023-12-02 17:17 | PC.NURSE ---
arrived by w/c from ED
--- NOTE | 2023-12-02 17:18 | ED_ITS ---
Discharge Plan Disposition Patient Disposition: Admitted Clinical Impressions Clinical Impression: Sepsis due to pneumonia, Respiratory failure Discharge ED Provider: Chantell Tam HPI General Chief Complaint: Shortness of Breath/Dyspnea Stated Complaint: syncope, SOA Time Seen by Provider: 12/02/23 15:06 Mode of Arrival: Wheelchair Source of Information: Patient Limitations: No Limitations Description of Symptoms (Recalled from ER Triage Doc. by RN): shortness of breath, r sided pain History of Present Illness HPI narrative: This patient is a 53-year-old female with a history of COPD on 3 L nasal cannula at night, hypertension, and GERD presenting to the emergency department for evaluation with concern for fevers, chills, cough, shortness of breath, and right-sided chest pain that is worse with cough and deep breathing. She notes that she has been feeling bad for about a week now but it got acutely worse today. She was too weak to stand and had to have assistance to get out of the car, which is unlike her. She has also been having low oxygen saturations at home, especially with any sort of exertion, so she has been having to wear oxygen [id number]. Related Data Home Medications Medication Instructions Recorded Confirmed buprenorphine 8 mg-naloxone 2 mg 2 tab sublingual DAILY Chronic Pain 08/19/19 09/13/23 sublingual tablet baclofen 10 mg tablet 10 mg PO BID PRN Pain 02/02/21 09/13/23 tizanidine 4 mg tablet 4 mg PO HS Pain 10/06/21 09/13/23 albuterol sulfate 2.5 mg/3 mL See Rx Instructions .Route 11/17/22 09/13/23 (0.083 %) solution for nebulization .COMPLEX Breathing problems budesonide-formoterol HFA 160 See Rx Instructions .Route 11/17/22 09/13/23 mcg-4.5 mcg/actuation aerosol .COMPLEX Breathing problems inhaler (Symbicort) nebulizer accessories 11/17/22 09/13/23 teriparatide 20 mcg/dose (620 See Rx Instructions .Route 11/17/22 09/13/23 mcg/2.48 mL) subcutaneous pen .COMPLEX Supplement injector umeclidinium 62.5 mcg/actuation See Rx Instructions .Route 11/17/22 09/13/23 blister powder for inhalation .COMPLEX Breathing problems (Incruse Ellipta) azithromycin 250 mg tablet 250 mg PO 04/18/23 09/13/23 budesonide 1 mg/2 mL suspension 1 mg inhalation 04/18/23 09/13/23 for nebulization formoterol fumarate 20 mcg/2 mL 20 mcg inhalation 04/18/23 09/13/23 solution for nebulization gabapentin 600 mg tablet 600 mg PO TID 04/18/23 09/13/23 revefenacin 175 mcg/3 mL solution 175 mcg inhalation 04/18/23 09/13/23 for nebulization (Yupeana mariai) Previous Rx's Medication Instructions Recorded needle (disp) 25 gauge 25 gauge x #100 ea 10/07/21 5/8 (BD Regular Bevel [place]) carvedilol 3.125 mg tablet See Rx Instructions .Route 12/21/22 .COMPLEX #180 tabs potassium chloride 10 mEq See Rx Instructions .Route 12/21/22 capsule,extended release .COMPLEX #180 caps estradiol 1 mg tablet See Rx Instructions .Route 12/23/22 .COMPLEX #90 tabs montelukast 10 mg tablet See Rx Instructions .Route 12/23/22 .COMPLEX #90 tabs ferrous sulfate 142 mg (45 mg See Rx Instructions .Route 01/05/23 iron) tablet,extended release .COMPLEX #90 tabs (Slow Release Iron) calcium carbonate 600 mg-vitamin See Rx Instructions .Route 01/06/23 D3 10 mcg (400 unit) tablet .COMPLEX #90 tabs pen needle, diabetic 31 gauge x ##100 01/13/23 3/16 (BD Ultra-Fine Mini Pen Needle) levothyroxine 137 mcg tablet 137 mcg PO DAILY Thyroid #90 tabs 02/07/23 ibuprofen 800 mg tablet See Rx Instructions .Route 02/14/23 .COMPLEX #30 tabs albuterol sulfate 90 mcg/actuation See Rx Instructions .Route 07/05/23 aerosol inhaler (Ventolin HFA) .COMPLEX #18 grams furosemide 20 mg tablet See Rx Instructions .Route 07/10/23 .COMPLEX #90 tabs cholecalciferol (vitamin D3) 25 See Rx Instructions .Route 07/17/23 mcg (1,000 unit) tablet .COMPLEX #90 tabs ergocalciferol (vitamin D2) 1,250 See Rx Instructions .Route 07/17/23 mcg (50,000 unit) capsule .COMPLEX #14 caps omeprazole 20 mg capsule,delayed See Rx Instructions .Route 08/23/23 release .COMPLEX #90 caps metronidazole 500 mg tablet 500 mg PO Q8H #30 tabs 09/13/23 ropinirole 0.25 mg tablet See Rx Instructions .Route 09/13/23 .COMPLEX #60 tabs cyanocobalamin (vitamin B-12) See Rx Instructions .Route 10/26/23 1,000 mcg/mL injection solution .COMPLEX #25 mL hydroxyzine pamoate 25 mg capsule 25 mg PO TID PRN itching #90 caps 10/26/23 (Vistaril) phenazopyridine 200 mg tablet 200 mg PO TID PRN pain 6 doses #6 10/26/23 (Pyridium) tabs syringe with needle 3 mL 25 gauge #4 ea 10/26/23 x 1 (BD Luer-Kaylin Syringe) prednisone 20 mg tablet 20 mg PO BID #10 tabs 11/14/23 alendronate 70 mg tablet See Rx Instructions .Route 11/28/23 .COMPLEX #5 tabs bupropion HCl 100 mg tablet,12 hr See Rx Instructions .Route 11/28/23 sustained-release .COMPLEX #60 tabs Allergies Allergy/AdvReac Type Severity Reaction Status Date / Time cefaclor [From CECLOR] Allergy Unknown CAUSES Verified 09/13/23 15:01 YEAST INFECTION Sulfa (Sulfonamide Allergy Unknown I-RASH Verified 09/13/23 15:01 Antibiotics) [SULFA (SULFONAMIDE ANTIBIOTICS)] sulfamethoxazole Allergy Unknown I-RASH Verified 09/13/23 15:01 [From BACTRIM] trimethoprim [From BACTRIM] Allergy Unknown I-RASH Verified 09/13/23 15:01 [facility] Disclaimer: The information contained in this section may have been updated after the patient was seen, as this information can be updated by other users. Medical History Hypothyroidism (~03/22/18) Epigastric pain Anorexia Early satiety Unexplained weight loss Interstitial cystitis Allergic rhinitis GERD (gastroesophageal reflux disease) Low back pain Edema Vitamin D deficiency Hypertension COPD (chronic obstructive pulmonary disease) Social History Smoking Status: Current every day smoker tobacco type: cigarettes packs per day: 1 alcohol intake: never substance use type: former substance user, opiates and painkillers current occupational status: unemployed and disabled Travel in the last 8 weeks: None household members: spouse and family housing: house caffeine: Yes ROS Obtained: Yes All systems reviewed & no additional complaints except as documented Physical Exam General General appearance: alert Comment: Ill-appearing Head Head exam: atraumatic and normocephalic Eye Eye exam: Present normal appearance, PERRL and EOMI ENT ENT exam: Present normal exam, normal oropharynx, mucous membranes moist and normal external ear exam Neck Neck exam: Present normal inspection, full ROM and trachea midline; Absent tenderness Chest Chest inspection: Present normal inspection and symmetric chest wall rise; Absent tenderness Respiratory Respiratory exam: Present respiratory distress, wheezes, accessory muscle use, prolonged expiratory phase and other (Bilateral rhonchi, right greater than left. Bilateral wheezing noted); Absent stridor Cardiovascular Cardiovascular exam: Present normal rhythm and tachycardia Abdominal Exam Abdominal exam: Present soft; Absent distention, tenderness or guarding Extremities Exam Extremities exam: Present normal inspection, full ROM and normal capillary refill; Absent tenderness or edema Back Exam Back exam: Present normal inspection and full ROM; Absent tenderness Neurological Exam Neurological exam: Present alert, oriented X3, CN II-XII intact and normal gait; Absent motor sensory deficit Psychiatric Psychiatric exam: Present normal affect and normal mood Skin Skin exam: Present warm and dry HEART Score HEART Score HEART Score assessment performed?: Yes History (anamnesis): Slightly suspicious ECG: Normal Age: 45-65 years Risk factors: 1-2 risk factors Troponin: </= normal limit HEART Score: 2 Critical Care Critical Care Time Critical Care Time: No Medical Decision Making Medical Records Medical records reviewed: Yes I reviewed the patient's medical records. Faisal Inquiry Pt receiving controlled substance: No Vital Signs Vital Signs: 12/02/23 14:47 12/02/23 15:00 12/02/23 15:31 Temperature 100.6 F H Temperature Source Oral Pulse Rate 118 H 118 H Pulse Rate [Right] 125 H Respiratory Rate 24 16 17 Blood Pressure 107/71 L 117/74 Blood Pressure [Right Arm] 130/86 Blood Pressure Mean [Right Arm] 100 Blood Pressure Source 02 Sat by Pulse Oximetry 80 L 95 94 L Oxygen Delivery Method Room Air Nasal Cannula Oxygen Flow Rate (LPM) 3 12/02/23 16:15 12/02/23 16:30 12/02/23 17:00 Temperature Temperature Source Pulse Rate 100 H 103 H Pulse Rate [Right] Respiratory Rate 16 15 14 Blood Pressure 109/66 L 113/76 103/64 L Blood Pressure [Right Arm] Blood Pressure Mean [Right Arm] Blood Pressure Source 02 Sat by Pulse Oximetry 97 90 L Oxygen Delivery Method Nasal Cannula Nasal Cannula Oxygen Flow Rate (LPM) 3 3 12/02/23 17:00 Temperature 99.0 F Temperature Source Oral Pulse Rate 103 H Pulse Rate [Right] Respiratory Rate 20 Blood Pressure 103/64 L Blood Pressure [Right Arm] Blood Pressure Mean [Right Arm] Blood Pressure Source Automatic Cuff 02 Sat by Pulse Oximetry Oxygen Delivery Method Nasal Cannula Oxygen Flow Rate (LPM) 3 Lab Data Labs: Lab Results 12/02/23 14:49: WBC 16.6 H, RBC 3.80 L, Hgb 12.4, Hct 38.8, MCV 102.1 H, MCH 32.6 H, MCHC 31.9, RDW 14.1, Plt Count 465 H, MPV 8.2, Neut % (Auto) 88.9 H, L ymph % (Auto) 5.5 L, Ray % (Auto) 4.6, Eos % (Auto) 0.4, Baso % (Auto) 0.6, N eut # (Auto) 14.7 H, Lymph # (Auto) 0.9, Ray # (Auto) 0.8, Eos # (Auto) 0.1, Baso # (Auto) 0.1, Total Counted 100, Neutrophils % (Manual) 90 H, Lymphocytes % (Manual) 6 L, Monocytes % (Manual) 2, Eosinophils % (Manual) 2, Platelet Estimate Normal, Stomatocytes 1+, Sodium 137, Potassium 4.1, Chloride 101, C arbon Dioxide 34 H, Anion Gap 6.1, BUN 8, Creatinine 0.50 L, Estimated Creat Clear 120, Estimated GFR 129, Est GFR ( Amer) 156, Glucose 140 H, Calcium 9.2, Total Bilirubin 0.5, AST 22, ALT 13, Alkaline Phosphatase 141 H, Troponin I < 0.01, C-Reactive Protein 213.9 H, NT-Pro-B Natriuret Pep 375 H, Total Protein 7.0, Albumin 3.4 L, Globulin 3.6 H, Albumin/Globulin Ratio 0.9 L, Procalcitonin 0.205, SARS-CoV-2 (PCR) Not detected, Influenza A Untype (PCR) Not detected, Influenza Type B (PCR) Not detected 12/02/23 15:31: VBG pH 7.37, VBG pCO2 55.8 H, VBG pO2 56.9 H, VBG HCO3 31.2 H, V BG Total CO2 33.0 H, VBG O2 Saturation 89.4 H, VBG Base Excess 5.9 H, VBG Lactic Acid 1.6 12/02/23 14:49 12/02/23 14:49 Response Orders (Tests/Meds): ED MEDICATIONS Generic Name Dose Route Start Last Admin Trade Name Freq PRN Reason Stop Dose Admin Albuterol/Ipratropium 3 ml 12/02/23 18:00 Ipratropium/Albuterol 3 Ml Neb 01/01/24 17:59 Q6RT [facility] 1928–1983 Enoxaparin Sodium 40 mg 12/03/23 09:00 Enoxaparin 40mg/0.4ml Syringe SQ 01/02/24 08:59 DAILY SARINA Lactated Ringer's 1,370 mls @ 685 mls/hr 12/02/23 15:22 12/02/23 15:30 Lactated Ringer's 1000 Ml Bag 30 ml/kg infuse over 2 hr (1370 ml) 12/02/23 17:21 685 mls/hr IV Administration .Q2H ONE Ceftriaxone Sodium 1 gm/ 50 mls @ 100 mls/hr 12/03/23 16:00 Sodium Chloride IV 12/13/23 15:59 Q24H SARINA Azithromycin 500 mg/ Sodium 250 mls @ 250 mls/hr 12/03/23 17:00 Chloride IV 12/13/23 16:59 Q24H SARINA Discontinued Medications Generic Name Dose Route Start Last Admin Trade Name Freq PRN Reason Stop Dose Admin Albuterol/Ipratropium 9 ml 12/02/23 15:22 12/02/23 15:30 Ipratropium/Albuterol 3 Ml Neb 12/02/23 15:23 9 ml ONCE ONE Administration Ceftriaxone Sodium 2 gm/ 100 mls @ 200 mls/hr 12/02/23 16:22 12/02/23 16:31 Sodium Chloride IV 12/02/23 16:51 200 mls/hr ONCE ONE Administration Azithromycin 500 mg/ Sodium 250 mls @ 250 mls/hr 12/02/23 16:22 12/02/23 16:34 Chloride IV 12/02/23 16:23 250 mls/hr ONCE ONE Administration Methylprednisolone Sodium Succinate 125 mg 12/02/23 15:22 12/02/23 15:31 Methylprednisolone Sod Succ 125mg Vial IV 12/02/23 15:23 125 mg ONCE ONE Administration ORDERS Category Date Time Status XR chest portable Stat Exams 12/02/23 15:20 Completed C-Reactive Protein Stat Lab 12/02/23 14:49 Completed CMP [Comprehensive Metabolic Panel] Stat Lab 12/02/23 14:49 Completed Complete Blood Count Auto Diff AMLAB Lab 12/03/23 06:00 Ordered Complete Blood Count Auto Diff Stat Lab 12/02/23 14:49 Completed Comprehensive Metabolic Panel AMLAB Lab 12/03/23 06:00 Ordered Full Resp Panel w/COVID ([facility]) Routine Lab 12/02/23 16:48 Ordered Magnesium AMLAB Lab 12/03/23 06:00 Ordered NT Pro Brain Natriuretic Pep. Stat Lab 12/02/23 14:49 Completed Procalcitonin Stat Lab 12/02/23 14:49 Completed Rapid PCR Covid and Flu A/B Stat Lab 12/02/23 14:49 Completed Troponin I Q3H Lab 12/02/23 18:30 Ordered Troponin I Q3H Lab 12/02/23 21:30 Ordered Troponin I Stat Lab 12/02/23 14:49 Completed Blood Culture Stat Micro 12/02/23 15:30 Received Venous Blood Gas Stat RT 12/02/23 15:31 Completed ECG Data Tracing #1: Attestation: I reviewed this ECG and interpreted as documented below: ECG Narrative: Sinus tachycardia with a ventricular rate of 123 bpm. Right ventricular hypertrophy. No acute ST changes concerning for ischemia. ECG initial impression date: 12/02/23 ECG initial impression time: 15:00 MDM Narrative Medical Decision Narrative: In summary, this patient is a 53-year-old female presenting to the Emergency Department for evaluation of fevers, chills, cough, shortness of breath, low oxygen at home, and right-sided chest pain. Differential diagnoses considered include but are not limited to pneumonia, respiratory failure, COPD exacerbation, sepsis. Ruling out the most morbid conditions drove assessment. On exam, the patient is in acute distress with increased work of breathing, tachycardia, and hypoxia on room air. She was placed on 3 L nasal cannula with good improvement. She is also febrile and tachypneic. Workup included CBC, CMP, troponin, CRP, procalcitonin, blood cultures, viral swab, VBG, lactic acid, chest x-ray, and EKG. EKG is reassuring. Patient was given a sepsis bolus of IV fluids given her vital signs as well as IV methylprednisolone and DuoNebs x 3. I independently interpreted x-ray prior to the radiologist read and noted right-sided pneumonia. Please see their read for final interpretation. Labs were obtained that demonstrated leukocytosis and chronic compensated respiratory failure. Patient has elevated CRP but procalcitonin and lactic acid are normal.. On reassessment, patient had good improvement after administration of event as above. She has improved capillary refill on perfusion reassessment. She is also moving good air. At this time, patient was deemed to be appropriate for admission for sepsis in the setting of pneumonia as well as respiratory failure. She was given IV Rocephin and azithromycin prior to admission. I had an indirect discussion with Dr. Arreola who admitted the patient for further evaluation and management..
[2023-12-02 17:30] LABS: Adenovirus,PCR Not Detected (NotDetected); Coronavirus 19, PCR Not Detected (NotDetected); Coronavirus 229E Not Detected (NotDetected); Coronavirus NL63 Not Detected (NotDetected); Coronavirus OC43 Not Detected (NotDetected); Coronovirus HKU1,PCR Not Detected (NotDetected); Human Metapneumovirus Not Detected (NotDetected); Influenza A, PCR Not Detected (NotDetected); Influenza AH1, 2009 Not Detected (NotDetected); Influenza AH1, PCR Not Detected (NotDetected); Influenza AH3,PCR Not Detected (NotDetected); Influenza B, PCR Not Detected (NotDetected); Parainfluenza 1, PCR Not Detected (NotDetected); Parainfluenza 2, PCR Not Detected (NotDetected); Parainfluenza 3, PCR Not Detected (NotDetected); Parainfluenza 4, PCR Not Detected (NotDetected); Respiratory Syncytial Virus Not Detected (NotDetected); Rhinovirus/Enterovirus Not Detected (NotDetected)
[2023-12-02] MEDS: IPRATROPIUM/ALBUTEROL 3 ML NEB IH ×2 (18:39→23:04)
[2023-12-02 19:08] LABS: Troponin I < 0.01 ng/ml (0.00-0.034)
[2023-12-02] MEDS: TIZANIDINE 4MG TABLET 4 MG PO (20:33)
[2023-12-02] MEDS: GABAPENTIN 600MG TABLET 600 MG PO (20:33)
[2023-12-02] MEDS: ROPINIROLE HCL 0.25 MG TABLET PO (20:33)
[2023-12-02 22:48] LABS: Troponin I < 0.01 ng/ml (0.00-0.034)
[2023-12-03] VITALS (11 sets, daily range): BP systolic 87–119; BP diastolic 46–70; PULSE 64–95; RESP 16–20; TEMP 36.4–36.9; O2SAT 3–99; BMI 20.4
--- NOTE | 2023-12-03 03:58 | PC.NURSE ---
pt a&ox4. 3L NC BL. Pt desats with exertion on room air. No complaints this shift. receiving iv abx, steriods, and breathing tx. voiding well.
[2023-12-03] MEDS: IPRATROPIUM/ALBUTEROL 3 ML NEB IH ×3 (06:20→23:09)
--- NOTE | 2023-12-03 07:49 | EXP.ACUTE.PN ---
Subjective *Date: 12/03/23 *Time: 11:22 Interval history: Patient states she is feeling little bit better, still having right-sided pain with cough. Requesting something for pain. Discussed initiating Toradol. No nausea or vomiting. Tolerating p.o. intake. Afebrile overnight. On 3 L continuous oxygen. Medical Exam Vital signs and Labs for Last 24 Hours: Vital Signs Temp Pulse Pulse Resp BP BP Pulse Ox 12/03/23 07:39 97.9 F 83 18 99/58 L 95 12/03/23 06:40 12/03/23 06:21 91 H 12/03/23 06:21 95 H 12/03/23 06:21 92 L 12/03/23 05:00 12/03/23 04:00 97.5 F L 64 18 119/70 97 12/03/23 03:00 12/03/23 01:00 12/03/23 00:00 98.5 F 76 16 87/50 L 95 12/02/23 23:16 95 H 12/02/23 23:00 12/02/23 21:00 12/02/23 20:00 12/02/23 20:00 98.9 F 98 H 16 100/57 L 92 L 12/02/23 20:00 101 H 12/02/23 17:38 98.8 F 107 H 24 114/76 95 12/02/23 17:00 99.0 F 103 H 20 103/64 L 12/02/23 17:00 103 H 14 103/64 L 90 L 12/02/23 16:30 100 H 15 113/76 97 12/02/23 16:15 16 109/66 L 12/02/23 15:31 118 H 17 117/74 94 L 12/02/23 15:00 118 H 16 107/71 L 95 12/02/23 14:47 100.6 F H 125 H 24 130/86 80 L O2 Del Method O2 Flow Rate 12/03/23 07:39 Nasal Cannula 3 12/03/23 06:40 Nasal Cannula 3 12/03/23 06:21 12/03/23 06:21 12/03/23 06:21 Nasal Cannula 3 12/03/23 05:00 Nasal Cannula 3 12/03/23 04:00 12/03/23 03:00 Nasal Cannula 3 12/03/23 01:00 Nasal Cannula 3 12/03/23 00:00 12/02/23 23:16 12/02/23 23:00 Nasal Cannula 3 12/02/23 21:00 Nasal Cannula 3 12/02/23 20:00 Nasal Cannula 3 12/02/23 20:00 12/02/23 20:00 12/02/23 17:38 Nasal Cannula 4 12/02/23 17:00 Nasal Cannula 3 12/02/23 17:00 Nasal Cannula 3 12/02/23 16:30 Nasal Cannula 3 12/02/23 16:15 12/02/23 15:31 Nasal Cannula 3 12/02/23 15:00 12/02/23 14:47 Room Air Intake and Output 12/02/23 12/02/23 12/03/23 15:59 23:59 07:59 Intake Total 200 / 200 Output Total 0 / 0 Balance 200 / 200 Intake: Intake, Oral Amount 200 / 200 Output: Output, Urine Amount 0 / 0 Other: Number of Unmeasured Voids 1 Weight 58.967 kg 55.48 kg 57.697 kg Patient Weight 12/03/23 23:59 Weight 57.697 kg Laboratory Results - last 24 hr 12/02/23 14:49: WBC 16.6 H, RBC 3.80 L, Hgb 12.4, Hct 38.8, MCV 102.1 H, MCH 32.6 H, MCHC 31.9, RDW 14.1, Plt Count 465 H, MPV 8.2, Neut % (Auto) 88.9 H, Lymph % (Auto) 5.5 L, [place] % (Auto) 4.6, Eos % (Auto) 0.4, Baso % (Auto) 0.6, Neut # (Auto) 14.7 H, Lymph # (Auto) 0.9, [place] # (Auto) 0.8, Eos # (Auto) 0.1, Baso # (Auto) 0.1, Total Counted 100, Neutrophils % (Manual) 90 H, Lymphocytes % (Manual) 6 L, Monocytes % (Manual) 2, Eosinophils % (Manual) 2, Platelet Estimate Normal, Stomatocytes 1+, Sodium 137, Potassium 4.1, Chloride 101, Carbon Dioxide 34 H, Anion Gap 6.1, BUN 8, Creatinine 0.50 L, Estimated Creat Clear 120, Estimated GFR 129, Est GFR ( Amer) 156, Glucose 140 H, Calcium 9.2, Total Bilirubin 0.5, AST 22, ALT 13, Alkaline Phosphatase 141 H, Troponin I < 0.01, C-Reactive Protein 213.9 H, NT-Pro-B Natriuret Pep 375 H, Total Protein 7.0, Albumin 3.4 L, Globulin 3.6 H, Albumin/Globulin Ratio 0.9 L, Procalcitonin 0.205, Chlamy pneumoniae PCR TNP, Adenovirus (PCR) Not detected, B. pertussis DNA (PCR) TNP, Coronavirus OC43 (PCR) Not detected, Coronavirus HKU1 (PCR) Not detected, Coronavirus 229E (PCR) Not detected, SARS-CoV-2 (PCR) Not detected 12/02/23 14:49: SARS-CoV-2 (PCR) Not detected, Coronavirus NL63 (PCR) Not detected, Human Metapneumovir PCR Not detected, Influenza A (H1) PCR Not detected, Influ A (H1N1/09) PCR Not detected, Influenza A (H3) PCR Not detected, Influenza Type A (PCR) Not detected, Influenza A Untype (PCR) Not detected, Influenza Type B (PCR) Not detected 12/02/23 14:49: Influenza Type B (PCR) Not detected, M. pneumoniae (PCR) TNP, Parainfluenza 1 (PCR) Not detected, Parainfluenza 2 (PCR) Not detected, Parainfluenza 3 (PCR) Not detected, Parainfluenza 4 (PCR) Not detected, RSV (PCR) Not detected, Entero/Rhino (PCR) Not detected 12/02/23 15:31: VBG pH 7.37, VBG pCO2 55.8 H, VBG pO2 56.9 H, VBG HCO3 31.2 H, VBG Total CO2 33.0 H, VBG O2 Saturation 89.4 H, VBG Base Excess 5.9 H, VBG Lactic Acid 1.6 12/02/23 18:25: Troponin I < 0.01 12/02/23 22:00: Troponin I < 0.01 I & O for Labs for Last 24 Hours: Intake & Output 11/30/23 12/01/23 12/02/23 12/03/23 23:59 23:59 23:59 23:59 Intake Total 200 / 200 Output Total 0 / 0 Balance 200 / 200 Weight 55.48 kg 57.697 kg Constitutional: Present no acute distress, average body habitus, chronically ill appearing and cooperative Head: Present atraumatic and normocephalic ENT: Present normal exam Neck: Present normal inspection Respiratory: Present prolonged expiratory phase, rhonchi, wheezes, crackles (Right lower lung field mid axillary and posterior) and normal respiratory effort Cardiac: Present Reg Rate and Rhythm GI: Present soft and normal bowel sounds; Absent distention or tenderness Extremities: Present normal inspection and full ROM Skin: Present intact; Absent erythema Neuro: Present Grossly Intact, alert, awake, oriented x 3 and moves all extremities Assessment and Plan *Assessment and plan (1) Sepsis due to pneumonia: Status: Acute Category: Medical Code(s): J18.9 - Pneumonia, unspecified organism; A41.9 - Sepsis, unspecified organism (2) Respiratory failure: Status: Acute Category: Medical Code(s): J96.90 - Respiratory failure, unspecified, unspecified whether with hypoxia or hypercapnia (3) Tobacco dependence: Status: Chronic Category: Medical Code(s): F17.200 - Nicotine dependence, unspecified, uncomplicated (4) Osteoporosis: Status: Chronic Category: Medical Code(s): M81.0 - Age-related osteoporosis without current pathological fracture (5) Hypothyroidism: Status: Chronic Qualifiers: Hypothyroidism type: unspecified Qualified Code(s): E03.9 - Hypothyroidism, unspecified Category: Medical Code(s): E03.9 - Hypothyroidism, unspecified (6) GERD (gastroesophageal reflux disease): Status: Chronic Qualifiers: Esophagitis presence: esophagitis presence not specified Qualified Code(s): K21.9 - Gastro-esophageal reflux disease without esophagitis Category: Medical Code(s): K21.9 - Gastro-esophageal reflux disease without esophagitis (7) Hypertension: Status: Chronic Qualifiers: Hypertension type: essential hypertension Qualified Code(s): I10 - Essential (primary) hypertension Category: Medical Code(s): I10 - Essential (primary) hypertension (8) COPD (chronic obstructive pulmonary disease): Status: Chronic Qualifiers: COPD type: unspecified COPD Qualified Code(s): J44.9 - Chronic obstructive pulmonary disease, unspecified Category: Medical Code(s): J44.9 - Chronic obstructive pulmonary disease, unspecified Plan 53-year-old female with history of COPD who continues to smoke. Condition complicated by opiate use disorder on gabapentin and Suboxone. Presented to the ER with 3 to 4 days of worsening shortness of breath, cough, increased phlegm production. Having subjective fevers at home. Developed right-sided chest wall pain with deep breathing and coughing. On arrival to the ER, meeting sepsis criteria and found to have pneumonia. Discussed case with ER physician, request admission for continued IV antibiotics and monitoring of cultures. Medicine agreed to admit. Currently on 4 L nasal cannula oxygen with sats above 90%. Appears quite uncomfortable with right-sided chest pain with deep breathing. Pain still present but a little improved. Continues to require inpatient management. Anticipate discharge in the next 1 to 2 days. Problems addressed as follows: Sepsis Pneumonia COPD -Chest imaging personally reviewed shows right lower lobe consolidation and hyperinflation. Meeting sepsis criteria with elevated white count of 1, increased oxygen requirement from baseline, tachycardia, and fever. -Continue IV daily 1 g ceftriaxone and 500 mg azithromycin -continue 40 mg prednisone daily given concern for pleuritic component to her chest wall pain -Initiate Toradol 30 mg IV every 6 hours as needed for pain -Supplemental oxygen as needed, currently on 3l. Maintain sats greater 90% -DuoNebs every 6 hours scheduled and budesonide twice daily -Continue home Singulair -Sputum culture pending; comprehensive panel negative -CBC, CRP, CMP, magnesium ordered for the morning. -CRP elevated increased to 259. White cell count normal at 9.6. Opiate use disorder: Continue home Suboxone 8/2 mg 2 tablets daily Continue home gabapentin 600 mg 3 times a day Continue home levothyroxine 137 mcg daily Continue home coreg 3.125mg bid for HTN Continue home estradiol 1 mg daily Tobacco use disorder: Smokes less than half pack a day. Continue 14 mg nicotine patch daily as needed Full code Regular diet Lovenox 40 mg subcu daily
[2023-12-03 08:00] LABS: Basophils % 0.1 % (0.1-2.0); Monocytes # 0.5 K/mm3 (0.1-1.0)
[2023-12-03 08:10] LABS: Chloride 100 mmol/L (98-107); Potassium 3.7 mmoL/L (3.5-5.1); Sodium 136 mmol/L (136-145)
[2023-12-03 08:13] LABS: Alanine Aminotransferase 11 U/L (12-78); Albumin Level 3.2 g/dl (3.5-5.0); Albumin/Globulin Ratio 0.9 (1.1-1.8); Alkaline Phosphatase 116 U/L (38-126); Anion Gap 5.7 mEq/L (5-15); Aspartate Amino Transferase 21 U/L (14-36); Bilirubin,Total 0.3 mg/dl (0.2-1.3); Blood Urea Nitrogen 13 mg/dl (7-17); Calcium 9.1 mg/dl (8.4-10.2); Carbon Dioxide 34 mmol/L (22.0-30.0); Creatinine Clearance Estimated 117 mL/min (50-200); Estimated Glomerular Filt Rate 129 ml/min (>60); GFR (African American) 156 ML/MIN (>60); Globulin 3.4 g/dL (1.3-3.2); Glucose 133 mg/dl (74-100); Total Protein,Serum 6.6 g/dl (6.3-8.2)
[2023-12-03 08:14] LABS: Hematocrit 33.4 % (37.0-47.0); Lymphocytes # 0.9 K/mm3 (0.7-4.5); Lymphocytes % 9.2 % (10-50); Magnesium 2.1 mg/dl (1.6-2.3); Mean Corpuscular HGB Conc 31.5 g/dL (31.8-35.4); Mean Corpuscular Hemoglobin 32.6 pg (27.0-31.2); Mean Corpuscular Volume 103.4 fl (81-99); Mean Platelet Volume 7.8 fl (7.4-10.4); Monocytes % 5.2 % (1.7-9.3); Neutrophils # 8.2 K/mm3 (1.8-7.8); Neutrophils % 85.4 % (37.0-80.0); Platelet Count 429 K/mm3 (142-424); Red Blood Count 3.23 M/mm3 (4.20-5.40); Red Cell Distribution Width 13.9 % (11.5-17.5); White Blood Count 9.6 K/mm3 (4.8-10.8)
[2023-12-03 08:18] LABS: MANUAL DIFFERENTIAL MANUAL DIFFERENTIAL (MANUAL DIFF)
[2023-12-03 08:38] LABS: C-Reactive Protein 254.8 mg/L (0-4)
[2023-12-03] MEDS: CARVEDILOL 3.125MG TABLET 3.125 MG PO (09:06)
[2023-12-03] MEDS: LEVOTHYROXINE 137MCG (0.137MG) TAB 137 MCG PO (09:06)
[2023-12-03] MEDS: PANTOPRAZOLE 40MG TABLET 40 MG PO (09:06)
[2023-12-03] MEDS: estradioL 1 MG TABLET PO (09:06)
[2023-12-03] MEDS: predniSONE 20MG TAB 40 MG PO (09:06)
[2023-12-03] MEDS: ENOXAPARIN 40MG/0.4ML SYRINGE 40 MG SQ (09:08)
[2023-12-03] MEDS: BUPRENORPHINE/NALOXONE 8MG/2MG ODT 2 EACH SL (09:08)
[2023-12-03] MEDS: GABAPENTIN 600MG TABLET 600 MG PO (09:11)
[2023-12-03 10:03] LABS: Lymphocytes % 8 % (10-50); Macrocytosis 1+; Monocytes % 5 % (2-9); Neutrophils % 87 % (42-76); Platelet Estimate Slight Increase; Total Cells Counted 100
[2023-12-03] MEDS: KETOROLAC 30MG/ML VIAL 30 MG IV ×2 (10:20→18:14)
[2023-12-03 10:23] LABS: Hemoglobin 10.5 g/dL (12.2-16.2)
[2023-12-03] MEDS: LACTATED RINGERS 1000ML 500 ML 250 ML IV (13:44)
[2023-12-03] MEDS: AZITHROMYCIN 500 MG in 0.9 % SODIUM CHLORIDE 250 ML 250 MG IV (16:57)
[2023-12-03] MEDS: CEFTRIAXONE SODIUM 1 GM in 0.9 % SODIUM CHLORIDE 50 ML IV (17:00)
[2023-12-03] MEDS: MONTELUKAST SODIUM 10MG TAB 10 MG PO (17:05)
--- NOTE | 2023-12-03 17:20 | PC.NURSE ---
pt doing, currently on 2lnc with bilat wheezing throughout. b/p have been soft this shift, md aware admin 500ml lr bolus and brought b/p up to /, will continue to monitor. no issues or concerns at this time.
[2023-12-03] MEDS: ONDANSETRON 4MG/2ML VIAL 4 MG IV (18:14)
[2023-12-03] MEDS: buPROPion HCL 100 MG TABLET PO (20:12)
[2023-12-03] MEDS: ROPINIROLE HCL 0.25 MG TABLET PO (20:12)
[2023-12-03] MEDS: TIZANIDINE 4MG TABLET 4 MG PO (20:12)
[2023-12-04] VITALS (10 sets, daily range): BP systolic 84–119; BP diastolic 54–72; PULSE 63–102; RESP 16–20; TEMP 36.6–37.1; O2SAT 89–96; BMI 20.7
--- NOTE | 2023-12-04 00:03 | PC.NURSE ---
Spoke with Dr Galloway regarding bp 84/54, pt stating she feels dizzy. no orders given, stated its effects from nighttime meds.
[2023-12-04] MEDS: KETOROLAC 30MG/ML VIAL 30 MG IV (01:11)
--- NOTE | 2023-12-04 05:35 | PC.NURSE ---
pt a&ox4. saturating well on 2L. complaints of some right sided rib/chest pain, medicated per oct. pt had soft pressures through the night. receiving breathing tx, steroids, and abx. voiding well.
[2023-12-04 06:14] LABS: Chloride 101 mmol/L (98-107); Potassium 3.8 mmoL/L (3.5-5.1); Sodium 133 mmol/L (136-145)
[2023-12-04 06:17] LABS: Alanine Aminotransferase 10 U/L (12-78); Albumin Level 2.5 g/dl (3.5-5.0); Albumin/Globulin Ratio 0.9 (1.1-1.8); Alkaline Phosphatase 84 U/L (38-126); Anion Gap 0.8 mEq/L (5-15); Aspartate Amino Transferase 18 U/L (14-36); Blood Urea Nitrogen 12 mg/dl (7-17); Calcium 8.4 mg/dl (8.4-10.2); Carbon Dioxide 35 mmol/L (22.0-30.0); Creatinine Clearance Estimated 119 mL/min (50-200); Estimated Glomerular Filt Rate 129 ml/min (>60); GFR (African American) 156 ML/MIN (>60); Globulin 2.8 g/dL (1.3-3.2); Glucose 109 mg/dl (74-100); Magnesium 1.9 mg/dl (1.6-2.3); Total Protein,Serum 5.3 g/dl (6.3-8.2)
[2023-12-04] MEDS: IPRATROPIUM/ALBUTEROL 3 ML NEB IH ×2 (06:30→10:58)
[2023-12-04 06:41] LABS: Eosinophils % 0.3 % (0.1-12.0); Mean Corpuscular HGB Conc 31.2 g/dL (31.8-35.4); Neutrophils # 8.8 K/mm3 (1.8-7.8)
[2023-12-04 06:47] LABS: Basophils % 0.2 % (0.1-2.0); Lymphocytes # 1.9 K/mm3 (0.7-4.5); Lymphocytes % 16.9 % (10-50); Mean Corpuscular Hemoglobin 32.3 pg (27.0-31.2); Mean Corpuscular Volume 103.7 fl (81-99); Mean Platelet Volume 8.3 fl (7.4-10.4); Monocytes # 0.6 K/mm3 (0.1-1.0); Neutrophils % 77.6 % (37.0-80.0); Platelet Count 376 K/mm3 (142-424); Red Cell Distribution Width 14.3 % (11.5-17.5); White Blood Count 11.4 K/mm3 (4.8-10.8)
[2023-12-04 06:53] LABS: Bilirubin,Total < 0.1 mg/dl (0.2-1.3)
[2023-12-04] MEDS: GABAPENTIN 600MG TABLET 600 MG PO ×2 (08:27→12:45)
[2023-12-04] MEDS: estradioL 1 MG TABLET PO (08:27)
[2023-12-04] MEDS: predniSONE 20MG TAB 40 MG PO (08:27)
[2023-12-04] MEDS: BUPRENORPHINE/NALOXONE 8MG/2MG ODT 2 EACH SL (08:28)
[2023-12-04] MEDS: ENOXAPARIN 40MG/0.4ML SYRINGE 40 MG SQ (08:28)
[2023-12-04] MEDS: buPROPion HCL 100 MG TABLET PO (08:28)
[2023-12-04] MEDS: PANTOPRAZOLE 40MG TABLET 40 MG PO (08:28)
[2023-12-04] MEDS: 0.9 % SODIUM CHLORIDE 1000ML 500 ML 250 ML IV (09:49)
[2023-12-04] MEDS: SODIUM CHLORIDE 3% 15ML NEB 3 ML IH (11:11)
[2023-12-04 14:20] LABS: C-Reactive Protein 89.6 mg/L (0-4)
--- NOTE | 2023-12-04 15:42 | HMH.PHAINT1 ---
Pharmacy Intervention Comments: DISCHARGE MEDICATION COUNSELING PROVIDED. DISCUSSED STARTING LEVAQUIN AND PREDNISONE. PATIENT STATES SHE IS FAMILIAR WITH BOTH MEDICATIONS AND HAS NO QUESTIONS. SHE DID EXPRESS CONCERN THAT LEVAQUIN CAUSES HER TO DEVELOP A YEAST INFECTION AND ASKED THAT DR NGUYEN SEND IN DIFLUCAN FOR PREVENTION. I RELAYED PATIENT CONCERNS TO HER NURSE, DOC, WHO SAID SHE WOULD CALL DR NGUYEN. NO FURTHER QUESTIONS OR CONCERNS EXPRESSED AT THIS TIME.
--- NOTE | 2023-12-04 16:03 | P.DS_ITS ---
General Admission date:: 12/02/23 Discharge date: 12/04/23 HPI HPI HPI: Ms. Nunez is a pleasant 53-year-old female with history of COPD, on 3 L nasal cannula at night, history of hypertension, GERD, Suboxone dependence, restless leg tobacco use disorder. She presented to the ER with report of fevers, chills, cough and increased shortness of breath along with right-sided chest pain over the past 3 to 4 days. Notes that she has been feeling bad progressively for a week but worse over the past 3 to 4 days. Was weak and had a hard time getting up today. Family had to help her. Had to turn her home oxygen up to 3 L continuous to prevent hypoxia. On arrival to the ER, patient found to be febrile, tachycardic, tachypneic. Workup concerning for pneumonia with right lower lobe consolidation on chest x-ray. Elevated white count. Initiated on ceftriaxone and azithromycin. Medicine consulted for admission and further management. On evaluation, patient appears uncomfortable. Complaining of right-sided chest wall pain that has gotten worse with coughing and deep breathing. Denies any nausea or vomiting. Denies any diarrhea. Denies any loss of consciousness. Smokes about 6 cigarettes a day and uses a vape. Hospital Course Hospital Course Hospital Course: 53-year-old female with history of COPD who continues to smoke. Condition complicated by opiate use disorder on gabapentin and Suboxone. Presented to the ER with 3 to 4 days of worsening shortness of breath, cough, increased phlegm p roduction. Having subjective fevers at home. Developed right-sided chest wall pain with deep breathing and coughing. On arrival to the ER, meeting sepsis criteria and found to have pneumonia. Discussed case with ER physician, request admission for continued IV antibiotics and monitoring of cultures. Medicine agreed to admit. Currently on 4 L nasal cannula oxygen with sats above 90%. Appears quite uncomfortable with right-sided chest pain with deep breathing. Pain still present but a little improved. Continues to require inpatient management. Anticipate discharge in the next 1 to 2 days. Problems addressed as follows: Sepsis - resolved Pneumonia, DC on oral levaquin COPD - stable at baseline Stable for discharge Patient was seen and evaluated at the bedside on the day of discharge. Patient wishes to be discharged. All patient questions were answered and patient was given time to ask questions. Patient was discharged in stable condition. Patient understands that she can return to ER in case of any sudden changes in health. Total time spent on DC - 38 mins Exam Data for Last 24 hours Vital signs and Labs for Last 24 Hours: Temp Pulse Resp BP Pulse Ox O2 Del Method O2 Flow Rate 98 F 89 16 106/60 L 91 L Room Air 2 12/04/23 11:53 12/04/23 14:15 12/04/23 14:15 12/04/23 14:15 12/04/23 14:15 12/04/23 15:05 12/04/23 11:53 FiO2 32 12/03/23 19:19 Laboratory Results - last 24 hr 12/04/23 05:49: WBC 11.4 H, RBC 2.80 L, Hgb 9.0 L D, Hct 29.0 L, MCV 103.7 H, MCH 32.3 H, MCHC 31.2 L, RDW 14.3, Plt Count 376, MPV 8.3, Neut % (Auto) 77.6, Lymph % (Auto) 16.9, [place] % (Auto) 5.0, Eos % (Auto) 0.3, Baso % (Auto) 0.2, Neut # (Auto) 8.8 H, Lymph # (Auto) 1.9, [place] # (Auto) 0.6, Eos # (Auto) 0.0, Baso # (Auto) 0.0, Sodium 133 L, Potassium 3.8, Chloride 101, Carbon Dioxide 35 H, Anion Gap 0.8 L, BUN 12, Creatinine 0.50 L, Estimated Creat Clear 119, Estimated GFR 129, Est GFR ( Amer) 156, Glucose 109 H, Calcium 8.4, Magnesium 1.9, Total Bilirubin < 0.1 L, AST 18, ALT 10 L, Alkaline Phosphatase 84, C-Reactive Protein 89.6 H D, Total Protein 5.3 L, Albumin 2.5 L D, Globulin 2.8, Albumin/Globulin Ratio 0.9 L I & O for Last 24 hours: Intake & Output 12/01/23 12/02/23 12/03/23 12/04/23 23:59 23:59 23:59 23:59 Intake Total 1160 / 1460 1020 / 1020 Output Total 0 / 0 0 / 0 Balance 1160 / 1460 1020 / 1020 Weight 55.48 kg 57.697 kg 58.42 kg Constitutional Constitutional: no acute distress *Routine HEENT Exam Head: Present normocephalic Eye: Present EOMI and PERRL ENT: Present mucous membranes moist *Routine Neck Exam Neck: Present supple; Absent lymphadenopathy *Routine Respiratory Exam Respiratory: Present CTA bilaterally *Routine Cardiovascular Exam Cardiovascular: Present RRR *Routine Abdominal Exam Abdominal: Present soft and normoactive bowel sounds; Absent tenderness *Routine Extremities Exam Extremities: Absent cyanosis, clubbing or edema *Routine Skin Exam Skin: Present warm; Absent rash *Routine Neurological Exam Neurological: Present alert and oriented X3 Results Data Completed and Pending Labs on day of discharge: Labs from last 24 hours 12/04/23 05:49 WBC 11.4 H RBC 2.80 L Hgb 9.0 L D Hct 29.0 L MCV 103.7 H MCH 32.3 H MCHC 31.2 L RDW 14.3 Plt Count 376 MPV 8.3 Neut % (Auto) 77.6 Lymph % (Auto) 16.9 [place] % (Auto) 5.0 Eos % (Auto) 0.3 Baso % (Auto) 0.2 Neut # (Auto) 8.8 H Lymph # (Auto) 1.9 [place] # (Auto) 0.6 Eos # (Auto) 0.0 Baso # (Auto) 0.0 Sodium 133 L Potassium 3.8 Chloride 101 Carbon Dioxide 35 H Anion Gap 0.8 L BUN 12 Creatinine 0.50 L Estimated Creat Clear 119 Estimated GFR 129 Est GFR ( Amer) 156 Glucose 109 H Calcium 8.4 Magnesium 1.9 Total Bilirubin < 0.1 L AST 18 ALT 10 L Alkaline Phosphatase 84 C-Reactive Protein 89.6 H D Total Protein 5.3 L Albumin 2.5 L D Globulin 2.8 Albumin/Globulin Ratio 0.9 L DS: Diagnosis Discharge Diagnosis (1) Sepsis due to pneumonia: Status: Acute Code(s): J18.9 - Pneumonia, unspecified organism; A41.9 - Sepsis, unspecified organism (2) Respiratory failure: Status: Acute Code(s): J96.90 - Respiratory failure, unspecified, unspecified whether with hypoxia or hypercapnia (3) Tobacco dependence: Status: Chronic Code(s): F17.200 - Nicotine dependence, unspecified, uncomplicated (4) Osteoporosis: Status: Chronic Code(s): M81.0 - Age-related osteoporosis without current pathological fracture (5) Hypothyroidism: Status: Chronic Code(s): E03.9 - Hypothyroidism, unspecified Qualifiers: Hypothyroidism type: unspecified Qualified Code(s): E03.9 - Hypothyroidism, unspecified (6) GERD (gastroesophageal reflux disease): Status: Chronic Code(s): K21.9 - Gastro-esophageal reflux disease without esophagitis Qualifiers: Esophagitis presence: esophagitis presence not specified Qualified Code(s): K21.9 - Gastro-esophageal reflux disease without esophagitis (7) Hypertension: Status: Chronic Code(s): I10 - Essential (primary) hypertension Qualifiers: Hypertension type: essential hypertension Qualified Code(s): I10 - Essential (primary) hypertension (8) COPD (chronic obstructive pulmonary disease): Status: Chronic Code(s): J44.9 - Chronic obstructive pulmonary disease, unspecified Qualifiers: COPD type: unspecified COPD Qualified Code(s): J44.9 - Chronic obstructive pulmonary disease, unspecified Meds Home Medications and Allergies Home Medications Medication Instructions Recorded Confirmed Type buprenorphine 8 mg-naloxone 2 mg 2 tab sublingual DAILY 08/19/19 12/02/23 History sublingual tablet tizanidine 4 mg tablet 4 mg PO HS Pain 10/06/21 12/02/23 History budesonide-formoterol HFA 160 2 puff inhalation Q12H 11/17/22 12/03/23 History mcg-4.5 mcg/actuation aerosol inhaler (Symbicort) levothyroxine 137 mcg tablet 137 mcg PO DAILY Thyroid #90 tabs 02/07/23 12/02/23 Rx budesonide 1 mg/2 mL suspension 1 mg inhalation BID 04/18/23 12/02/23 History for nebulization formoterol fumarate 20 mcg/2 mL 20 mcg inhalation BID 04/18/23 12/02/23 History solution for nebulization albuterol sulfate 90 mcg/actuation 2 puff inhalation Q4HP PRN 12/03/23 12/03/23 History aerosol inhaler (Ventolin HFA) SHORTNESS OF AIR alendronate 70 mg tablet 70 mg PO WEEKLY 12/03/23 12/03/23 History bupropion HCl 100 mg tablet,12 hr 100 mg PO BID 12/03/23 12/03/23 History sustained-release calcium carbonate 600 mg-vitamin 1 tab PO DAILY Supplement 12/03/23 12/03/23 History D3 10 mcg (400 unit) tablet carvedilol 3.125 mg tablet 3.125 mg PO BID 12/03/23 12/03/23 History cholecalciferol (vitamin D3) 25 25 mcg PO DAILY 12/03/23 12/03/23 History mcg (1,000 unit) tablet cyanocobalamin (vitamin B-12) 1,000 mcg SQ MONTHLY 12/03/23 12/03/23 History 1,000 mcg/mL injection solution ergocalciferol (vitamin D2) 1,250 1,250 mcg PO WEEKLY 12/03/23 12/03/23 History mcg (50,000 unit) capsule estradiol 1 mg tablet 1 mg PO DAILY 12/03/23 12/03/23 History fluticasone propionate 110 1 puff inhalation BID 12/03/23 12/03/23 History mcg/actuation HFA aerosol inhaler furosemide 40 mg tablet 20 mg PO DAILY 12/03/23 12/03/23 History gabapentin 600 mg tablet 600 mg PO TID 12/03/23 12/03/23 History hydroxyzine pamoate 25 mg capsule 25 mg PO TIDP PRN Itching 12/03/23 12/03/23 History latanoprost 0.005 % eye drops 1 drp Eye-Both HS 12/03/23 12/03/23 History montelukast 10 mg tablet 10 mg PO HS 12/03/23 12/03/23 History omeprazole 20 mg capsule,delayed 20 mg PO DAILY 12/03/23 12/03/23 History release potassium chloride 10 mEq 10 meq PO BID 12/03/23 12/03/23 History capsule,extended release revefenacin 175 mcg/3 mL solution 175 mcg inhalation DAILY 12/03/23 12/03/23 History for nebulization (Benoit) ropinirole 0.25 mg tablet 0.25 - 0.5 mg PO HS 12/03/23 12/03/23 History fluconazole 200 mg tablet 200 mg PO DAILY 3 days #3 tabs 12/04/23 Rx (Diflucan) levofloxacin 750 mg tablet 750 mg PO DAILY 5 days #5 tabs 12/04/23 Rx prednisone 20 mg tablet 40 mg (2 x 20 mg) PO DAILY 5 days 12/04/23 Rx #10 tabs New Prescriptions to Start Prescriptions: fluconazole [Diflucan] Soy Rodriguez levofloxacin Michael,Soy prednisone Michael,Soy Allergies Allergy/AdvReac Type Severity Reaction Status Date / Time cefaclor [From CECLOR] Allergy Unknown CAUSES Verified 09/13/23 15:01 YEAST INFECTION Sulfa (Sulfonamide Allergy Unknown I-RASH Verified 09/13/23 15:01 Antibiotics) [SULFA (SULFONAMIDE ANTIBIOTICS)] sulfamethoxazole Allergy Unknown I-RASH Verified 09/13/23 15:01 [From BACTRIM] trimethoprim [From BACTRIM] Allergy Unknown I-RASH Verified 09/13/23 15:01 Discharge Plan Disposition Patient Disposition: Home, Self-Care Condition: Good Discharge Order Discharge Orders: Discharge Order (Routine); Ordered 12/04/23 Ordered By: Soy Rodriguez Follow up Plan Follow up with: Kiana Arenas PA [Primary Care Provider] - 12/11/23 10:15 am Prescriptions/Medication Reconciliation: New prednisone 20 mg Tablet 40 mg PO DAILY 5 Days Qty: 10 0RF levofloxacin 750 mg tablet 750 mg PO DAILY 5 Days Qty: 5 0RF fluconazole [Diflucan] 200 mg tablet 200 mg PO DAILY 3 Days Qty: 3 0RF Continued buprenorphine-naloxone 8-2 mg tablet, sublingual 2 tab SUBLINGUAL DAILY tizanidine 4 mg tablet 4 mg PO HS formoterol fumarate 20 mcg/2 mL solution for nebulization 20 mcg inhalation BID budesonide 1 mg/2 mL suspension for nebulization 1 mg inhalation BID levothyroxine 137 mcg tablet 137 mcg PO DAILY Qty: 90 3RF budesonide-formoterol [Symbicort] 160-4.5 mcg/actuation HFA aerosol inhaler 2 puff inhalation Q12H alendronate 70 mg tablet 70 mg PO WEEKLY Patient Comments: TAKE ONE TABLET BY MOUTH ONCE a WEEK albuterol sulfate [Ventolin HFA] 90 mcg/actuation HFA aerosol inhaler 2 puff INHALATION Q4HP PRN (Reason: SHORTNESS OF AIR) calcium carbonate-vitamin D3 600 mg-10 mcg (400 unit) tablet 1 tab PO DAILY bupropion HCl 100 mg tablet sustained-release 12 hr 100 mg PO BID carvedilol 3.125 mg tablet 3.125 mg PO BID cholecalciferol (vitamin D3) 25 mcg (1,000 unit) tablet 25 mcg PO DAILY Patient Comments: TAKE ONE TABLET BY MOUTH EVERY DAY furosemide 40 mg tablet 20 mg PO DAILY Patient Comments: TAKE 1/2 TABLET BY MOUTH EVERY DAY latanoprost 0.005 % drops 1 drp Eye-Both HS potassium chloride 10 mEq capsule, extended release 10 meq PO BID Patient Comments: TAKE ONE CAPSULE BY MOUTH TWICE DAILY gabapentin 600 mg tablet 600 mg PO TID Patient Comments: TAKE 1 TABLET BY MOUTH THREE TIMES DAILY estradiol 1 mg tablet 1 mg PO DAILY ropinirole 0.25 mg tablet 0.25 - 0.5 mg PO HS Patient Comments: TAKE 1 TO 2 TABLET(S) BY MOUTH AT least 1 TO 3 hour(s) BEFORE bedtime FOR restless LEGS cyanocobalamin (vitamin B-12) 1,000 mcg/mL solution 1,000 mcg SQ MONTHLY Patient Comments: INJECT 1 ML SUBCUTANEOUSLY monthly FOR vitamin b12 deficiency omeprazole 20 mg capsule,delayed release(DR/EC) 20 mg PO DAILY Patient Comments: TAKE ONE CAPSULE BY MOUTH EVERY DAY FOR gerd montelukast 10 mg tablet 10 mg PO HS Patient Comments: TAKE ONE TABLET BY MOUTH EVERY DAY FOR allergies ergocalciferol (vitamin D2) 1,250 mcg (50,000 unit) capsule 1,250 mcg PO WEEKLY Patient Comments: TAKE ONE CAPSULE BY MOUTH ONCE A WEEK fluticasone propionate 110 mcg/actuation HFA aerosol inhaler 1 puff INHALATION BID hydroxyzine pamoate 25 mg capsule 25 mg PO TIDP PRN (Reason: Itching) Patient Comments: TAKE ONE CAPSULE BY MOUTH THREE TIMES DAILY NEEDED FOR ITCHING Yupelri 175 mcg/3 mL solution for nebulization 175 mcg inhalation DAILY Problem Reconciliation Problems Reviewed?: Yes Patient Discharge Instructions ACTIVITY: Ambulate as tolerated DIET: continue same diet Patient Instructions: DI for Pneumonia -- Adult, DI for Sepsis -- Adult, DI for Respiratory Failure Providers Primary Care Provider: Kiana Arenas Admit Provider: Carson Arreola Attending Provider: Carson Arreola
--- NOTE | 2023-12-05 10:34 | CARE MANAGER ---
Called and spoke with patient regarding recent discharge. She stated that she is doing well, has started her new medication and aware of scheduled f/u appt. She had no concerns at time of call.
== END 2023-12-04 14:19 | disposition home or self-care (01) | DRG 871 ==
LOC: ER 16:54 → 2ND 17:14
PROVIDERS: Student in an Organized Health Care Education/Training Program; Admitting Provider Internal Medicine Adolescent Medicine; Emergency Provider Emergency Medicine; PCP Physician Assistant; Visit Provider Internal Medicine Adolescent Medicine
DX: A41.9 Sepsis, unspecified organism (principal); J18.9 Pneumonia, unspecified organism; J96.90 Respiratory failure, unspecified, unspecified whether with hypoxia or hypercapnia; J44.0 Chronic obstructive pulmonary disease with (acute) lower respiratory infection; F17.210 Nicotine dependence, cigarettes, uncomplicated; M81.0 Age-related osteoporosis without current pathological fracture; E03.9 Hypothyroidism, unspecified; K21.9 Gastro-esophageal reflux disease without esophagitis; I10 Essential (primary) hypertension
CPT/HCPCS: 36415; 71045; 80053; 82803; 83735; 83880; 84145; 84484; 85007; 85025; 86140; 87040; 87632; 87635; 87636; 93005; 94640; 94760; 99285; J0456; J0574; J0696; J2405

== ENCOUNTER 2023-12-11 11:19 | Outpatient (CLI) | payer MEDICAID, SELFPAY ==
--- NOTE | 2023-12-11 11:22 | XR_ITS ---
FINAL REPORT CLINICAL HISTORY: pneumonia f/u COMPARISON: 12/02/2023 FINDINGS: Two views of the chest were obtained. The heart size and pulmonary vascularity are within normal limits. The mediastinum is normal. There is hyperinflation of the lungs consistent with COPD. There is partial improvement of the right lung base opacities consistent with improved pneumonia. There is no pneumothorax. The bony thorax is intact. IMPRESSION: Improved pneumonia. Reviewed, Interpreted and Dictated by Osvaldo Kolb III, MD Transcribed by Cadence Lu Authenticated and [facility]
== END 2023-12-11 23:59 | disposition home or self-care (01) ==
LOC: RAD 11:19
PROVIDERS: PCP Physician Assistant; Visit Provider Physician Assistant
DX: J18.9 Pneumonia, unspecified organism (principal)
CPT/HCPCS: 71046

== ENCOUNTER 2023-12-14 12:42 | Outpatient (CLI) | payer MEDICAID, SELFPAY ==
--- NOTE | 2023-12-14 | CA_ITS ---
APPROVED REPORT EXAM: Comprehensive 2D, Doppler, and color-flow Echocardiogram Scrap Carrier: Zainab Vallejo CRT Ht: 5 ft 6 in Wt: 121lbs BSA: 1.62 BP: 114/82 mmHg Indications: SOB, COPD, HTN, anorexia, Echo Enhancing Agent Indication: Rule out Shunt Agent(s) / Amount(s) Used: Agitated Saline 5 cc Comments: Positive bubble study 2D Dimensions LA Volume 16.60 mL LA Volume Index 10.10 mL/m2 (M/F) 16-34 M-Mode Dimensions RVDd 3.05 cm (0.9-2.6) LA Diam 2.37 cm (1.9-4.0) LVDd 3.49 cm (3.5-5.7) LVDs 2.38 cm (3.5-5.7) IVSd 0.94 cm (0.6-1.1) PWd 0.80 cm (0.6-1.1) EF (Teich) 61.00% FS 31.80% EDV (Teich) 50.50 mL TAPSE 1.79 (<1.7) ESV (Teich) 19.70 mL LV Diastology E Decel Time 210 (160-240 msec) E/A Ratio 0.60 MED A' 15.30 cm/s LAT A' 13.20 cm/s Aortic Valve AO Peak GR. 4.90 mmHg Mitral Valve MV E Max Home. 53.0 (40-130 cm/s) MV A Velocity 88.0 (40-130 cm/s) E/A Ratio 0.60 MV PHT 62.0 ms Pulmonary Valve PV Peak Velocity 158.0 (50-150 cm/s) Tricuspid Valve TR P. Velocity 201.00 cm/s RAP Estimate 10.00 mmHg RVSP 26.10 mmHg Left Ventricle The left ventricle is normal size. The left ventricular systolic function is normal. The left ventricular ejection fraction is within the normal range. There is increased LV wall thickness. There is normal LV segmental wall motion. Transmitral Doppler flow pattern suggests impaired LV relaxation. LVEF is 55%. Right Ventricle The right ventricle is mildly dilated. The right ventricular systolic function is normal. Atria The left atrium size is normal. The right atrium size is normal. There is no clear Doppler evidence of interatrial shunt. Administration of agitated saline at rest and with Valsalva demonstrate migration of bubbles from the right to the left atrium within 3 cardiac cycles, consistent with presence of interatrial shunt. Aortic Valve The aortic valve opens well. There is no aortic valvular stenosis. No aortic regurgitation is present. Mitral Valve The mitral valve is normal in structure. No evidence of mitral valve stenosis. There is no mitral valve regurgitation noted. Tricuspid Valve The tricuspid valve leaflets are thin and pliable. Trace tricuspid regurgitation. There is insufficient TR jet to estimate RVSP. Pulmonic Valve The pulmonary valve is normal in structure. Trace pulmonic regurgitation. Great Vessels The aortic root is normal in size. The ascending aorta is not well-visualized. IVC is normal in size and collapses >50% with inspiration. Pericardium There is no pericardial effusion. Other Information Study Quality: Fair Conclusion Normal biventricular systolic function. Mild RV dilation. No significant valvular stenosis or regurgitation. Administration of agitated saline at rest and with Valsalva demonstrate migration of bubbles from the right to the left atrium within 3 cardiac cycles, consistent with presence of interatrial shunt. In the setting of interatrial shunt and mild RV dilation on TTE, further evaluation for the presence, location, and sizing of the interatrial shunt is recommended with LATOYA. Also, evaluation of QP: QS ratio and RV size is recommended with cardiac MRI (cardiomyopathy protocol). Electronically signed by : Suly Berry MD 12/14/2023 14:22:26
== END 2023-12-14 23:59 | disposition home or self-care (01) ==
LOC: RT 12:43
PROVIDERS: PCP Physician Assistant; Visit Provider Nurse Practitioner
DX: R06.09 Other forms of dyspnea (principal)
CPT/HCPCS: 93306

== ENCOUNTER 2023-12-27 13:38 | Outpatient (CLI) | payer MEDICAID, SELFPAY ==
--- NOTE | 2023-12-27 13:42 | XR_ITS ---
FINAL REPORT CLINICAL HISTORY: dyspnea, chest pain, interarterial shunt, hypoxia COMPARISON: 12/11/2023 FINDINGS: TWO-VIEW CHEST The heart size is normal. The mediastinum is normal. There is persistent airspace opacity in the right perihilar region and right base which is stable, may be related to chronic sequela of prior pneumonia. The left lung is clear. There is no pneumothorax. IMPRESSION: Persistent but stable airspace opacity, may be related to scar. Reviewed, Interpreted and Dictated by Geoffrey Yuan MD Transcribed by Lisandra Beaver Authenticated and [facility]
== END 2023-12-27 23:59 | disposition home or self-care (01) ==
LOC: RAD 13:40
PROVIDERS: PCP Physician Assistant; Visit Provider Physician Assistant
DX: J44.9 Chronic obstructive pulmonary disease, unspecified (principal); R05.9 Cough, unspecified; R09.02 Hypoxemia; R07.9 Chest pain, unspecified; R06.00 Dyspnea, unspecified; Q24.8 Other specified congenital malformations of heart
CPT/HCPCS: 71046

== ENCOUNTER 2024-01-01 16:15 | Emergency (ER) | payer MEDICAID, SELFPAY ==
[2024-01-01 16:16] VITALS: BP 152/91; PULSE 112; RESP 22; TEMP 37.1; O2SAT 98; BMI 18.8
--- NOTE | 2024-01-01 16:17 | ECG_ITS ---
APPROVED REPORT Exam: Resting ECG HR:98 bpm ECG Measurements Heart Rate 98 AXES FL 166 P 81 QRSd 90 QRS 87 QT 325 T 78 QTc 380 Conclusion SINUS RHYTHM NORMAL ECG UNCONFIRMED REPORT Electronically signed by : OG GE, 01/02/2024 02:52:01
--- NOTE | 2024-01-01 16:24 | ED_ITS ---
<Statement entered by Tiffanie Jernigan MD - 01/01/24 23:04> I was consulted by the DOYLE, and we discussed the complexity of the problems being addressed. I approved the treatment and management plan for this patient's care in the emergency department, thus performing a substantive portion of the medical decision making. Tiffanie Jernigan MD, DELMIS, FACEP Discharge Plan Disposition Patient Disposition: Home, Self-Care Condition: Good Prescriptions Prescriptions: New prednisone 50 mg tablet 50 mg PO DAILY 5 Days Qty: 5 0RF No Action Slow Release Iron 142 mg (45 mg iron) tablet extended release PO Patient Comments: TAKE ONE TABLET BY MOUTH EVERY DAY (DME) BD Luer-Kaylin Syringe 3 mL 25 gauge x 1 syringe See Rx Instructions .ROUTE .MEDSUPPLY Qty: 1 Patient Comments: USE DIRECTED FOR B12 INJECTIONS Rx Instructions: As directed amitriptyline 25 mg tablet PO buprenorphine-naloxone 8-2 mg tablet, sublingual 2 tab SUBLINGUAL DAILY tizanidine 4 mg tablet 4 mg PO HS formoterol fumarate 20 mcg/2 mL solution for nebulization 20 mcg inhalation BID budesonide 1 mg/2 mL suspension for nebulization 1 mg inhalation BID levothyroxine 137 mcg tablet 137 mcg PO DAILY Qty: 90 3RF albuterol sulfate [Ventolin HFA] 90 mcg/actuation HFA aerosol inhaler See Rx Instructions .ROUTE .COMPLEX Qty: 18 6RF Dose Instruction: INHALE 2 puffs BY MOUTH EVERY 4 TO 6 HOURS NEEDED FOR SHORTNESS OF BREATH OR wheezing --SHAKE WELL BEFORE USE-- Rx Instructions: INHALE 2 puffs BY MOUTH EVERY 4 TO 6 HOURS NEEDED FOR SHORTNESS OF BREATH OR wheezing --SHAKE WELL BEFORE USE-- ropinirole 0.25 mg tablet See Rx Instructions .ROUTE .COMPLEX Qty: 60 2RF Dose Instruction: TAKE 1 TO 2 TABLET(S) BY MOUTH AT least 1 TO 3 hour(s) BEFORE bedtime FOR restless LEGS Rx Instructions: TAKE 1 TO 2 TABLET(S) BY MOUTH AT least 1 TO 3 hour(s) BEFORE bedtime FOR restless LEGS estradiol 1 mg tablet See Rx Instructions .ROUTE .COMPLEX Qty: 90 2RF Dose Instruction: TAKE ONE TABLET BY MOUTH EVERY DAY Rx Instructions: TAKE ONE TABLET BY MOUTH EVERY DAY montelukast 10 mg tablet See Rx Instructions .ROUTE .COMPLEX Qty: 90 2RF Dose Instruction: TAKE ONE TABLET BY MOUTH EVERY DAY FOR allergies Rx Instructions: TAKE ONE TABLET BY MOUTH EVERY DAY FOR allergies carvedilol 3.125 mg tablet See Rx Instructions .ROUTE .COMPLEX Qty: 180 2RF Dose Instruction: TAKE ONE TABLET BY MOUTH TWICE DAILY Rx Instructions: TAKE ONE TABLET BY MOUTH TWICE DAILY furosemide 40 mg tablet See Rx Instructions .ROUTE .COMPLEX Qty: 15 2RF Dose Instruction: TAKE 1/2 TABLET BY MOUTH EVERY DAY Rx Instructions: TAKE 1/2 TABLET BY MOUTH EVERY DAY potassium chloride 10 mEq capsule, extended release See Rx Instructions .ROUTE .COMPLEX Qty: 180 2RF Dose Instruction: TAKE ONE CAPSULE BY MOUTH TWICE DAILY Rx Instructions: TAKE ONE CAPSULE BY MOUTH TWICE DAILY ergocalciferol (vitamin D2) 1,250 mcg (50,000 unit) capsule See Rx Instructions .ROUTE .COMPLEX Qty: 14 0RF Dose Instruction: TAKE ONE CAPSULE BY MOUTH ONCE A WEEK Rx Instructions: TAKE ONE CAPSULE BY MOUTH ONCE A WEEK budesonide-formoterol [Symbicort] 160-4.5 mcg/actuation HFA aerosol inhaler 2 puff inhalation Q12H alendronate 70 mg tablet 70 mg PO WEEKLY Patient Comments: TAKE ONE TABLET BY MOUTH ONCE a WEEK calcium carbonate-vitamin D3 600 mg-10 mcg (400 unit) tablet 1 tab PO DAILY bupropion HCl 100 mg tablet sustained-release 12 hr 100 mg PO BID cholecalciferol (vitamin D3) 25 mcg (1,000 unit) tablet 25 mcg PO DAILY Patient Comments: TAKE ONE TABLET BY MOUTH EVERY DAY latanoprost 0.005 % drops 1 drp Eye-Both HS gabapentin 600 mg tablet 600 mg PO TID Patient Comments: TAKE 1 TABLET BY MOUTH THREE TIMES DAILY cyanocobalamin (vitamin B-12) 1,000 mcg/mL solution 1,000 mcg SQ MONTHLY Patient Comments: INJECT 1 ML SUBCUTANEOUSLY monthly FOR vitamin b12 deficiency omeprazole 20 mg capsule,delayed release(DR/EC) 20 mg PO DAILY Patient Comments: TAKE ONE CAPSULE BY MOUTH EVERY DAY FOR gerd fluticasone propionate 110 mcg/actuation HFA aerosol inhaler 1 puff INHALATION BID hydroxyzine pamoate 25 mg capsule 25 mg PO TIDP PRN (Reason: Itching) Patient Comments: TAKE ONE CAPSULE BY MOUTH THREE TIMES DAILY NEEDED FOR ITCHING Yupelri 175 mcg/3 mL solution for nebulization 175 mcg inhalation DAILY Referrals Follow up/Referrals: Kiana Arenas PA [Primary Care Provider] - See instructions Activity Restrictions/Add. Instructions Additional Instructions/Restrictions: Please schedule follow-up with your tack maker soon as possible for recheck. Please continue your supplemental home O2 and utilize your neb machine as prescribed. Clinical Impressions Clinical Impression: Acute exacerbation of chronic obstructive pulmonary disease Discharge ED Provider: Tiffanie Jernigan [facility] <MICHAEL Johnson - Last Filed: 01/01/24 18:22> General Chief Complaint: Chest Pain Stated Complaint: Chest pain/SOB Time Seen by Provider: 01/01/24 16:24 Mode of Arrival: Wheelchair Source of Information: Patient Limitations: No Limitations Description of Symptoms (Recalled from ER Triage Doc. by RN): Patient complaint of shortness of breath and chest pain off and on for a couple of days now. States that her shortness of breath is when she is up and moving around. Reports that she wears oxygen at night and now she has been having to wear it more during the day. Related Data Home Medications Medication Instructions Recorded Confirmed buprenorphine 8 mg-naloxone 2 mg 2 tab sublingual DAILY 08/19/19 12/27/23 sublingual tablet tizanidine 4 mg tablet 4 mg PO HS Pain 10/06/21 12/27/23 budesonide-formoterol HFA 160 2 puff inhalation Q12H 11/17/22 12/27/23 mcg-4.5 mcg/actuation aerosol inhaler (Symbicort) budesonide 1 mg/2 mL suspension 1 mg inhalation BID 04/18/23 12/27/23 for nebulization formoterol fumarate 20 mcg/2 mL 20 mcg inhalation BID 04/18/23 12/27/23 solution for nebulization alendronate 70 mg tablet 70 mg PO WEEKLY 12/03/23 12/27/23 bupropion HCl 100 mg tablet,12 hr 100 mg PO BID 12/03/23 12/27/23 sustained-release calcium carbonate 600 mg-vitamin 1 tab PO DAILY Supplement 12/03/23 12/27/23 D3 10 mcg (400 unit) tablet cholecalciferol (vitamin D3) 25 25 mcg PO DAILY 12/03/23 12/27/23 mcg (1,000 unit) tablet cyanocobalamin (vitamin B-12) 1,000 mcg SQ MONTHLY 12/03/23 12/27/23 1,000 mcg/mL injection solution fluticasone propionate 110 1 puff inhalation BID 12/03/23 12/27/23 mcg/actuation HFA aerosol inhaler gabapentin 600 mg tablet 600 mg PO TID 12/03/23 12/27/23 hydroxyzine pamoate 25 mg capsule 25 mg PO TIDP PRN Itching 12/03/23 12/27/23 latanoprost 0.005 % eye drops 1 drp Eye-Both HS 12/03/23 12/27/23 omeprazole 20 mg capsule,delayed 20 mg PO DAILY 12/03/23 12/27/23 release revefenacin 175 mcg/3 mL solution 175 mcg inhalation DAILY 12/03/23 12/27/23 for nebulization ([place]) ferrous sulfate 142 mg (45 mg mg PO 12/11/23 12/27/23 iron) tablet,extended release (Slow Release Iron) syringe with needle 3 mL 25 gauge #1 ea 12/11/23 12/27/23 x 1 (BD Luer-Kaylin Syringe) amitriptyline 25 mg tablet mg PO 12/27/23 12/27/23 Previous Rx's Medication Instructions Recorded levothyroxine 137 mcg tablet 137 mcg PO DAILY Thyroid #90 tabs 02/07/23 albuterol sulfate 90 mcg/actuation See Rx Instructions .Route 12/19/23 aerosol inhaler (Ventolin HFA) .COMPLEX #18 grams carvedilol 3.125 mg tablet See Rx Instructions .Route 12/28/23 .COMPLEX #180 tabs estradiol 1 mg tablet See Rx Instructions .Route 12/28/23 .COMPLEX #90 tabs furosemide 40 mg tablet See Rx Instructions .Route 12/28/23 .COMPLEX #15 tabs montelukast 10 mg tablet See Rx Instructions .Route 12/28/23 .COMPLEX #90 tabs potassium chloride 10 mEq See Rx Instructions .Route 12/28/23 capsule,extended release .COMPLEX #180 caps ropinirole 0.25 mg tablet See Rx Instructions .Route 12/28/23 .COMPLEX #60 tabs ergocalciferol (vitamin D2) 1,250 See Rx Instructions .Route 12/29/23 mcg (50,000 unit) capsule .COMPLEX #14 caps prednisone 50 mg tablet 50 mg PO DAILY 5 days #5 tabs 01/01/24 Allergies Allergy/AdvReac Type Severity Reaction Status Date / Time cefaclor [From CECLOR] Allergy Unknown CAUSES Verified 12/11/23 10:24 YEAST INFECTION Sulfa (Sulfonamide Allergy Unknown I-RASH Verified 12/11/23 10:24 Antibiotics) [SULFA (SULFONAMIDE ANTIBIOTICS)] sulfamethoxazole Allergy Unknown I-RASH Verified 12/11/23 10:24 [From BACTRIM] trimethoprim [From BACTRIM] Allergy Unknown I-RASH Verified 12/11/23 10:24 PFSH <MICHAEL Johnson - Last Filed: 01/01/24 18:22> [facility]LY [facility] Disclaimer: The information contained in this section may have been updated after the patient was seen, as this information can be updated by other users. Medical History (Updated 01/01/24 @ 18:22 by MICHAEL Johnson) Interatrial cardiac shunt Dyspnea Chest pain in adult Hypoxia Cough Hypothyroidism (~03/22/18) Epigastric pain Anorexia Early satiety Unexplained weight loss Interstitial cystitis Allergic rhinitis GERD (gastroesophageal reflux disease) Low back pain Edema Vitamin D deficiency Hypertension COPD (chronic obstructive pulmonary disease) Family History Other Family history of acute congestive heart failure Social History Smoking Status: Unknown if ever smoked alcohol intake: never substance use type: former substance user, opiates and painkillers current occupational status: unemployed and disabled Travel in the last 8 weeks: None household members: spouse and family housing: house caffeine: Yes <MICHAEL Johnson - Last Filed: 01/01/24 18:22> ROS Obtained: Yes Systems reviewed as appropriate & no additional complaints except as documented Physical Exam <MICHAEL Johnson - Last Filed: 01/01/24 18:22> General General appearance: alert and in no apparent distress Head Head exam: atraumatic and normal inspection Eye Eye exam: Present normal appearance, PERRL and EOMI ENT ENT exam: Present normal exam, normal oropharynx and mucous membranes moist Neck Neck exam: Present normal inspection, full ROM and trachea midline; Absent lymphadenopathy Chest Chest inspection: Present normal inspection and symmetric chest wall rise Respiratory Respiratory exam: Present normal lung sounds bilaterally; Absent accessory muscle use Cardiovascular Cardiovascular exam: Present regular rate, normal rhythm, normal heart sounds, +S1 and +S2 Abdominal Exam Abdominal exam: Present soft and normal bowel sounds; Absent tenderness, guarding or rebound Extremities Exam Extremities exam: Present normal inspection and full ROM Neurological Exam Neurological exam: Present alert, oriented X3 and CN II-XII intact Psychiatric Psychiatric exam: Present normal affect and normal mood Skin Skin exam: Present warm, dry and normal color Lymphatic Lymphatic Findings: no adenopathy HEART Score <MICHAEL Johnson - Last Filed: 01/01/24 18:22> HEART Score HEART Score assessment performed?: Yes History (anamnesis): Slightly suspicious ECG: Normal Age: 45-65 years Risk factors: 1-2 risk factors Troponin: </= normal limit HEART Score: 2 Critical Care <MICHAEL Johnson - Last Filed: 01/01/24 18:22> Critical Care Time Critical Care Time: No Medical Decision Making <MICHAEL Johnson - Last Filed: 01/01/24 18:22> Medical Records Medical records reviewed: Yes I reviewed the patient's medical records. Faisal Inquiry Pt receiving controlled substance: No Vital Signs Vital Signs: 01/01/24 16:16 01/01/24 16:30 01/01/24 17:00 Temperature 98.7 F Temperature Source Oral Pulse Rate 102 H 92 H Pulse Rate [Radial] 112 H Respiratory Rate 22 17 Blood Pressure 118/90 117/77 Blood Pressure [Right Arm] 152/91 H Blood Pressure Mean [Right Arm] 111 Blood Pressure Source [Right Arm] Automatic Cuff Blood Pressure Position [Right Arm] Sitting 02 Sat by Pulse Oximetry 98 100 99 Oxygen Delivery Method Nasal Cannula Room Air Room Air Oxygen Flow Rate (LPM) 3 Lab Data Lab results reviewed: Yes I reviewed the patient's lab results. Labs: Lab Results 01/01/24 16:15: WBC 6.1, RBC 3.97 L, Hgb 12.8, Hct 40.8, MCV 102.6 H, MCH 32.1 H , MCHC 31.3 L, RDW 13.4, Plt Count 345, MPV 8.0, Neut % (Auto) 61.7, Lymph % (Auto) 25.0, [place] % (Auto) 8.1, Eos % (Auto) 4.4, Baso % (Auto) 0.9, Neut # (Auto) 3.8, Lymph # (Auto) 1.5, [place] # (Auto) 0.5, Eos # (Auto) 0.3, Baso # (Auto) 0.1, Total Counted 100, Neutrophils % (Manual) 52, Band Neutrophils % 1.0, Lymphocytes % (Manual) 39, Monocytes % (Manual) 4, Eosinophils % (Manual) 4 H, Platelet Estimate Normal, Anisocytosis 1+, Macrocytosis 1+, PT 10.7, INR 0.99, Sodium 140, Potassium 3.4 L, Chloride 97 L, Carbon Dioxide 39 H, Anion Gap 7.4, BUN 5 L, Creatinine 0.50 L, Estimated Creat Clear 111, Estimated GFR 129, Est GFR ( Amer) 156, Glucose 120 H, Calcium 9.7, Magnesium 1.8, Total Bilirubin 0.4, AST 24, ALT 10 L, Alkaline Phosphatase 117, Troponin I < 0.01, T otal Protein 7.9 D, Albumin 4.0, Globulin 3.9 H, Albumin/Globulin Ratio 1.0 L, Procalcitonin 0.049 01/01/24 16:34: VBG pH 7.33, VBG pCO2 68.0 H, VBG pO2 26.6 L, VBG HCO3 35.2 H, V BG Total CO2 37.3 H, VBG O2 Saturation 53.6, VBG Base Excess 9.3 H, VBG Lactic Acid 1.1 01/01/24 16:15 01/01/24 16:15 Response Orders (Tests/Meds): ED MEDICATIONS Generic Name Dose Route Start Last Admin Trade Name Freq PRN Reason Stop Dose Admin Sodium Chloride 10 ml 01/01/24 16:25 Sodium Chloride 0.9% 10ml Flush Syringe IV 01/31/24 16:24 NEEDED PRN Maintain IV Site Discontinued Medications Generic Name Dose Route Start Last Admin Trade Name Freq PRN Reason Stop Dose Admin Acetaminophen 1,000 mg 01/01/24 16:33 01/01/24 16:39 Acetaminophen 1,000mg/100ml Vial IV 01/01/24 16:34 1,000 mg ONCE ONE Administration Albuterol/Ipratropium 9 ml 01/01/24 16:33 01/01/24 16:52 Ipratropium/Albuterol 3 Ml Neb 01/01/24 16:34 9 ml ONCE ONE Administration Iopamidol 70 ml 01/01/24 17:38 01/01/24 17:39 Iopamidol-370 (76%);100ml Bottle IV 01/01/24 17:39 70 ml ONCE ONE Administration Ketorolac Tromethamine 15 mg 01/01/24 16:33 01/01/24 16:38 Ketorolac 30mg/Ml Vial IV 01/01/24 16:34 15 mg ONCE ONE Administration Methylprednisolone Sodium Succinate 125 mg 01/01/24 17:20 01/01/24 17:41 Methylprednisolone Sod Succ 125mg Vial IV 01/01/24 17:21 125 mg ONCE ONE Administration Sodium Chloride 50 ml 01/01/24 17:38 01/01/24 17:40 0.9 % Sodium Chloride 50 Ml Vial IV 01/01/24 17:39 50 ml ONCE ONE Administration Sodium Chloride 10 ml 01/01/24 17:38 01/01/24 17:40 Sodium Chloride 0.9% 10ml Syr (Rad Only) IV 01/01/24 17:39 10 ml ONCE ONE Administration ORDERS Category Date Time Status CT angio chest PE protocol Stat Cat Scan 01/01/24 16:57 Completed XR chest portable Stat Exams 01/01/24 16:26 Completed Complete Blood Count Man Dif Stat Lab 01/01/24 16:15 Completed Comprehensive Metabolic Panel Stat Lab 01/01/24 16:15 Completed Full Resp Panel w/COVID ([facility]) Routine Lab 01/01/24 16:46 Received INR [Prothrombin Time INR] Stat Lab 01/01/24 16:15 Completed Magnesium Stat Lab 01/01/24 16:15 Completed Procalcitonin Stat Lab 01/01/24 16:15 Completed Troponin I Q3H Lab 01/01/24 19:30 Ordered Troponin I Q3H Lab 01/01/24 22:30 Ordered Troponin I Stat Lab 01/01/24 16:15 Completed VBG [Venous Blood Gas] Stat RT 01/01/24 16:34 Completed MDM Narrative Medical Decision Narrative: In summary patient is a 53-year-old female who presents to the emergency department for evaluation of dyspnea and chest pain . Patient is normotensive tachycardic on arrival but respiratory rate 22 upon arrival initially requiring 3 L by nasal cannula to maintain a sat above 94%, but afebrile. Physical exam is remarkable for bilateral end expiratory wheezes and diminished breath sounds in all 4 [place]. Differential diagnosis includes COPD exacerbation versus viral bacterial respiratory tract infection versus ACS etc. Initial workup will be conducted with hematologic labs full respiratory panel plain film chest x-ray CT PE protocol. Initial interventions include DuoNeb IV steroids Toradol Tylenol. Initial workup reviewed by me shows that her hematologic labs are nonactionable and my informal interpretation of both her film x-rays and CT scan shows no acute infiltrates does show severe emphysema with radiologist read pending. Upon repeat evaluation patient feels significantly better. Given this had interactive discussion with the patient regarding the severity of her emphysema and reinforced the need to be compliant with supplemental O2 and home nebulizing as prescribed. Patient verbalized understanding and agreement. Given this patient is appropriate for discharge home to continue with her home O2 and home nebulizers and to follow-up closely with her tack maker. <Tiffanie Jernigan MD - Last Filed: 01/01/24 16:37> Vital Signs Vital Signs: 01/01/24 16:16 01/01/24 16:30 01/01/24 17:00 Temperature 98.7 F Temperature Source Oral Pulse Rate 102 H 92 H Pulse Rate [Radial] 112 H Respiratory Rate 22 17 Blood Pressure 118/90 117/77 Blood Pressure [Right Arm] 152/91 H Blood Pressure Mean [Right Arm] 111 Blood Pressure Source [Right Arm] Automatic Cuff Blood Pressure Position [Right Arm] Sitting 02 Sat by Pulse Oximetry 98 100 99 Oxygen Delivery Method Nasal Cannula Room Air Room Air Oxygen Flow Rate (LPM) 3 Lab Data Labs: Lab Results 01/01/24 16:15: WBC 6.1, RBC 3.97 L, Hgb 12.8, Hct 40.8, MCV 102.6 H, MCH 32.1 H , MCHC 31.3 L, RDW 13.4, Plt Count 345, MPV 8.0, Neut % (Auto) 61.7, Lymph % (Auto) 25.0, [place] % (Auto) 8.1, Eos % (Auto) 4.4, Baso % (Auto) 0.9, Neut # (Auto) 3.8, Lymph # (Auto) 1.5, [place] # (Auto) 0.5, Eos # (Auto) 0.3, Baso # (Auto) 0.1, Total Counted 100, Neutrophils % (Manual) 52, Band Neutrophils % 1.0, Lymphocytes % (Manual) 39, Monocytes % (Manual) 4, Eosinophils % (Manual) 4 H, Platelet Estimate Normal, Anisocytosis 1+, Macrocytosis 1+, PT 10.7, INR 0.99, Sodium 140, Potassium 3.4 L, Chloride 97 L, Carbon Dioxide 39 H, Anion Gap 7.4, BUN 5 L, Creatinine 0.50 L, Estimated Creat Clear 111, Estimated GFR 129, Est GFR ( Amer) 156, Glucose 120 H, Calcium 9.7, Magnesium 1.8, Total Bilirubin 0.4, AST 24, ALT 10 L, Alkaline Phosphatase 117, Troponin I < 0.01, T otal Protein 7.9 D, Albumin 4.0, Globulin 3.9 H, Albumin/Globulin Ratio 1.0 L, Procalcitonin 0.049 01/01/24 16:34: VBG pH 7.33, VBG pCO2 68.0 H, VBG pO2 26.6 L, VBG HCO3 35.2 H, V BG Total CO2 37.3 H, VBG O2 Saturation 53.6, VBG Base Excess 9.3 H, VBG Lactic Acid 1.1 Response Orders (Tests/Meds): ED MEDICATIONS Generic Name Dose Route Start Last Admin Trade Name Freq PRN Reason Stop Dose Admin Sodium Chloride 10 ml 01/01/24 16:25 Sodium Chloride 0.9% 10ml Flush Syringe IV 01/31/24 16:24 NEEDED PRN Maintain IV Site Discontinued Medications Generic Name Dose Route Start Last Admin Trade Name Freq PRN Reason Stop Dose Admin Acetaminophen 1,000 mg 01/01/24 16:33 01/01/24 16:39 Acetaminophen 1,000mg/100ml Vial IV 01/01/24 16:34 1,000 mg ONCE ONE Administration Albuterol/Ipratropium 9 ml 01/01/24 16:33 01/01/24 16:52 Ipratropium/Albuterol 3 Ml Neb IH 01/01/24 16:34 9 ml ONCE ONE Administration Iopamidol 70 ml 01/01/24 17:38 01/01/24 17:39 Iopamidol-370 (76%);100ml Bottle IV 01/01/24 17:39 70 ml ONCE ONE Administration Ketorolac Tromethamine 15 mg 01/01/24 16:33 01/01/24 16:38 Ketorolac 30mg/Ml Vial IV 01/01/24 16:34 15 mg ONCE ONE Administration Methylprednisolone Sodium Succinate 125 mg 01/01/24 17:20 01/01/24 17:41 Methylprednisolone Sod Succ 125mg Vial IV 01/01/24 17:21 125 mg ONCE ONE Administration Sodium Chloride 50 ml 01/01/24 17:38 01/01/24 17:40 0.9 % Sodium Chloride 50 Ml Vial IV 01/01/24 17:39 50 ml ONCE ONE Administration Sodium Chloride 10 ml 01/01/24 17:38 01/01/24 17:40 Sodium Chloride 0.9% 10ml Syr (Rad Only) IV 01/01/24 17:39 10 ml ONCE ONE Administration ORDERS Category Date Time Status CT angio chest PE protocol Stat Cat Scan 01/01/24 16:57 Completed XR chest portable Stat Exams 01/01/24 16:26 Completed Complete Blood Count Man Dif Stat Lab 01/01/24 16:15 Completed Comprehensive Metabolic Panel Stat Lab 01/01/24 16:15 Completed Full Resp Panel w/COVID ([facility]) Routine Lab 01/01/24 16:46 Received INR [Prothrombin Time INR] Stat Lab 01/01/24 16:15 Completed Magnesium Stat Lab 01/01/24 16:15 Completed Procalcitonin Stat Lab 01/01/24 16:15 Completed Troponin I Q3H Lab 01/01/24 19:30 Ordered Troponin I Q3H Lab 01/01/24 22:30 Ordered Troponin I Stat Lab 01/01/24 16:15 Completed VBG [Venous Blood Gas] Stat RT 01/01/24 16:34 Completed ECG Data Tracing #1: Attestation: I reviewed this ECG and interpreted as documented below: ECG Narrative: Ventricular rate of 98 normal axis no acute ischemic changes noted no conduction abnormalities normal EKG
--- NOTE | 2024-01-01 16:26 | XR_ITS ---
PROCEDURE INFORMATION: Exam: XR Chest Exam date and time: 01/01/2024 4:38 PM Age: 53 years old Clinical indication: Pain; Chest pressure; Additional info: Chest pain/sob TECHNIQUE: Imaging protocol: Radiologic exam of the chest. Views: 1 view. COMPARISON: CR XR CHEST 2V 12/27/2023 1:43 PM FINDINGS: Lungs: Moderate changes of emphysema in both lungs. No acute infiltrate. Pleural spaces: Unremarkable. No pleural effusion. No pneumothorax. Heart/Mediastinum: Unremarkable. No cardiomegaly. Bones/joints: Unremarkable. IMPRESSION: No acute interval change
[2024-01-01 16:30] VITALS: BP 118/90; PULSE 102; O2SAT 100
[2024-01-01 16:32] LABS: MANUAL DIFFERENTIAL MANUAL DIFFERENTIAL (MANUAL DIFF)
[2024-01-01 16:35] LABS: Basophils # 0.1 K/mm3 (0-0.2); Basophils % 0.9 % (0.1-2.0); Eosinophils # 0.3 K/mm3 (0.0-0.4); Eosinophils % 4.4 % (0.1-12.0); Hematocrit 40.8 % (37.0-47.0); Hemoglobin 12.8 g/dL (12.2-16.2); Lymphocytes # 1.5 K/mm3 (0.7-4.5); Mean Corpuscular HGB Conc 31.3 g/dL (31.8-35.4); Mean Corpuscular Hemoglobin 32.1 pg (27.0-31.2); Mean Corpuscular Volume 102.6 fl (81-99); Monocytes # 0.5 K/mm3 (0.1-1.0); Monocytes % 8.1 % (1.7-9.3); Neutrophils # 3.8 K/mm3 (1.8-7.8); Neutrophils % 61.7 % (37.0-80.0); Platelet Count 345 K/mm3 (142-424); Red Blood Count 3.97 M/mm3 (4.20-5.40); Red Cell Distribution Width 13.4 % (11.5-17.5); White Blood Count 6.1 K/mm3 (4.8-10.8)
[2024-01-01] MEDS: KETOROLAC 30MG/ML VIAL 15 MG IV (16:38)
[2024-01-01] MEDS: ACETAMINOPHEN 1,000MG/100ML VIAL 1000 MG IV (16:39)
[2024-01-01 16:40] LABS: Lactate Venous 1.1 mmol/L (0.4-2.0); VBG Base Excess 9.3 mmol/L (-2.4-2.3); VBG HCO3 35.2 mmol/L (23-30); VBG Oxygen Saturation 53.6 % (50-70); VBG PH 7.33 mmol/L (7.31-7.41); VBG PO2 26.6 mmol/L (28-40); VBG Total CO2 37.3 mmol/L (23-27)
[2024-01-01 16:41] LABS: Alanine Aminotransferase 10 U/L (12-78); Alkaline Phosphatase 117 U/L (38-126); Anion Gap 7.4 mEq/L (5-15); Aspartate Amino Transferase 24 U/L (14-36); Bilirubin,Total 0.4 mg/dl (0.2-1.3); Blood Urea Nitrogen 5 mg/dl (7-17); Calcium 9.7 mg/dl (8.4-10.2); Carbon Dioxide 39 mmol/L (22.0-30.0); Chloride 97 mmol/L (98-107); Creatinine Clearance Estimated 111 mL/min (50-200); Estimated Glomerular Filt Rate 129 ml/min (>60); GFR (African American) 156 ML/MIN (>60); Globulin 3.9 g/dL (1.3-3.2); Glucose 120 mg/dl (74-100); Potassium 3.4 mmoL/L (3.5-5.1); Sodium 140 mmol/L (136-145); Total Protein,Serum 7.9 g/dl (6.3-8.2)
[2024-01-01 16:45] LABS: INR 0.99 (0.9-1.1); Prothrombin Time 10.7 seconds (10.1-12.5)
[2024-01-01 16:46] LABS: Magnesium 1.8 mg/dl (1.6-2.3)
[2024-01-01 16:50] LABS: Adenovirus,PCR Not Detected (NotDetected); Bordetella Pertussis Not Detected (NotDetected); Chlamydophila Pneumoniae, PCR Not Detected (NotDetected); Coronavirus 19, PCR Not Detected (NotDetected); Coronavirus 229E Not Detected (NotDetected); Coronavirus NL63 Not Detected (NotDetected); Coronavirus OC43 Not Detected (NotDetected); Coronovirus HKU1,PCR Not Detected (NotDetected); Human Metapneumovirus Not Detected (NotDetected); Influenza A, PCR Not Detected (NotDetected); Influenza AH1, 2009 Not Detected (NotDetected); Influenza AH1, PCR Not Detected (NotDetected); Influenza AH3,PCR Not Detected (NotDetected); Influenza B, PCR Not Detected (NotDetected); Mycoplasma Pneumoniae, PCR Not Detected (NotDetected); Parainfluenza 1, PCR Not Detected (NotDetected); Parainfluenza 2, PCR Not Detected (NotDetected); Parainfluenza 3, PCR Not Detected (NotDetected); Parainfluenza 4, PCR Not Detected (NotDetected); Respiratory Syncytial Virus Not Detected (NotDetected); Rhinovirus/Enterovirus Not Detected (NotDetected)
[2024-01-01] MEDS: IPRATROPIUM/ALBUTEROL 3 ML NEB 9 ML IH (16:52)
--- NOTE | 2024-01-01 16:57 | CT_ITS ---
PROCEDURE INFORMATION: Exam: CTA Chest With Contrast Exam date and time: 01/01/2024 5:32 PM Age: 53 years old Clinical indication: Pain; Chest pressure; Additional info: Acute hypercarbic respiratory failure, chest pain TECHNIQUE: Imaging protocol: Computed tomographic angiography of the chest with contrast. Exam focused on the arteries. 3D rendering (Not supervised by radiologist): MIP and/or 3D reconstructed images were created by the technologist. Radiation optimization: All CT scans at this facility use at least one of these dose optimization techniques: automated exposure control; mA and/or kV adjustment per patient size (includes targeted exams where dose is matched to clinical indication); or iterative reconstruction. Contrast material: ISOVUE; Contrast volume: 70 ml; Contrast route: INTRAVENOUS (IV); COMPARISON: CT ANGIO CHEST PE PROTOCOL 11/17/2022 7:35 PM FINDINGS: Pulmonary arteries: Normal. No pulmonary emboli. Aorta: Unremarkable. No aortic aneurysm. No aortic dissection. Lungs: Significant changes of emphysema upper lungs. Subpleural honeycombing in the dependent portions of the bilateral lower lobes. There has been interval development of moderate dependent infiltrate versus atelectasis in the bilateral lower. Pleural spaces: Unremarkable. No pneumothorax. No pleural effusion. Heart: Unremarkable. No cardiomegaly. No pericardial effusion. Lymph nodes: Unremarkable. No enlarged lymph nodes. Bones/joints: Mild degenerative changes throughout the thoracic spine. No vertebral body compression or fracture. Soft tissues: Unremarkable. IMPRESSION: Mild dependent infiltrate versus atelectasis in the bilateral lower lung lobes. Otherwise stable chronic findings as noted. COMMENTS: The presence of pulmonary emphysema on CT is an independent risk factor for lung cancer. In the absence of a history or active diagnosis of lung cancer, it is recommended that this patient with emphysema be evaluated for enrollment in a low dose CT lung cancer screening program.
[2024-01-01 17:00] VITALS: BP 117/77; PULSE 92; RESP 17; O2SAT 99
[2024-01-01 17:34] LABS: Anisocytosis 1+; Eosinophils % 4 % (0-3); Lymphocytes % 39 % (10-50); Macrocytosis 1+; Monocytes % 4 % (2-9); Neutrophils % 52 % (42-76); Platelet Estimate Normal; Total Cells Counted 100
[2024-01-01] MEDS: IOPAMIDOL-370 (76%);100ML BOTTLE 70 ML IV (17:39)
[2024-01-01] MEDS: SODIUM CHLORIDE 0.9% 10ML SYR (RAD ONLY) 10 ML IV (17:40)
[2024-01-01] MEDS: 0.9 % SODIUM CHLORIDE 50 ML VIAL IV (17:40)
[2024-01-01] MEDS: METHYLPREDNISOLONE SOD SUCC 125MG VIAL 125 MG IV (17:41)
[2024-01-01 17:44] LABS: Troponin I < 0.01 ng/ml (0.00-0.034)
[2024-01-01 17:48] LABS: Procalcitonin 0.049 ng/mL (0.0-2.0)
[2024-01-01 18:00] VITALS: BP 109/68; PULSE 94; O2SAT 95
[2024-01-01 18:24] VITALS: BP 109/58; PULSE 90; RESP 18; TEMP 37.1; O2SAT 98
== END 2024-01-01 18:29 | disposition home or self-care (01) ==
PROVIDERS: Physician Assistant; Emergency Provider Student in an Organized Health Care Education/Training Program; PCP Physician Assistant
DX: J44.1 Chronic obstructive pulmonary disease with (acute) exacerbation (principal); R07.9 Chest pain, unspecified; R06.02 Shortness of breath; R06.2 Wheezing; I10 Essential (primary) hypertension; E03.9 Hypothyroidism, unspecified; K21.9 Gastro-esophageal reflux disease without esophagitis; Z99.81 Dependence on supplemental oxygen; F17.210 Nicotine dependence, cigarettes, uncomplicated
CPT/HCPCS: 71045; 71275; 80053; 82803; 83735; 84145; 84484; 85007; 85014; 85018; 85048; 85049; 85610; 87581; 87632; 87635; 87798; 93005; 96374; 96375; 99285; J0131; Q9967

== ENCOUNTER 2024-01-18 10:28 | Outpatient (CLI) | payer MEDICAID, SELFPAY ==
--- NOTE | 2024-01-18 10:29 | NM_ITS ---
APPROVED REPORT Exam: Nuclear Stress Test Indication: chest pain..soa..fatigue Patient Location: Outpatient Stress Tech: Desirae DUMONT Tech:Jodee Shelby JAYYMaxime RT(R)(N) Ht: 5 ft 7 in Wt: 125 lbs Bra Size: c HR: 81 bpm BP: 135/83 mmHg BSA: 1.66 m2 Rhythm: NSR TID: 0.94 BMI: 19.5 History: chest pain..soa..fatigue Procedure: Patient received 0.4 mg of intravenous Lexiscan, resting heart rate 81 bpm, resting blood pressure 135/83 mmHg, with Lexiscan maximum heart rate achieved was 105 bpm which is 85 % of the maximum predicted heart rate and blood pressure was 144/81 mmHg. With Lexiscan, patient denied any complaint of chest pain. Cardiac Stress and Resting SPECT Images: Cardiac Stress and Resting SPECT images were obtained using technetium 99m Myoview 31.2 mCi stress and 10.77 mCi at rest. Technically difficult study due to significant soft tissue overlap with the borders of the LV wall. This may affect the diagnostic interpretation of the study findings. Resting and stress imaging in supine and prone positions demonstrate a medium sized, mild, partially reversible perfusion defect in the mid to distal inferior LV wall and towards the LV apex. Gated imaging demonstrates normal global and regional LV systolic function. LVEF is calculated at 64%. Conclusion: Technically difficult study. Medium sized, mild, partially reversible perfusion defect in the mid to distal inferior LV wall and towards the LV apex. Gated imaging demonstrates normal global and regional LV systolic function. LVEF is calculated at 64%. Electronically signed by : Suly Berry MD 01/22/2024 11:59:49
--- NOTE | 2024-01-18 13:28 | CA_ITS ---
APPROVED REPORT Exam: Pharmacologic Technologist: Desirae Rodarte, Ht: 5 ft 7 in Wt: 119 lbs BSA: 1.62 m2 HR: 75 bpm BP: 135/83 mmHg Rhythm: NSR Indications: Dyspnea Medical History Medications: Omeprazole,,,,, Levothyroxine,,,,, Ferrous sulfate,,,,, Gabapentin,,,,, Carvedilol,,,,, Ropinirole,,,,, Albuterol,,,,, Estradiol,,,,, Montelukast,,,,, AmiTRIPTYLINE,,,,, Tizanidine,,,,, BuPROPION,,,,, Stress Test Details Test: LEXISCAN Reason for pharmacologic stress test: physical limitation. HR Resting HR: 81 bpm Max Heart Rate (APMHR): 166 bpm Max HR Achieved: 105 bpm Target HR (85% APMHR): 141 bpm % of APMHR: 63 Recovery HR: 89 bpm BP Resting BP: 135.0/83.0 mmHg Max BP: 144.0/81.0 mmHg Recovery BP: 137.0/84.0 mmHg ECG Resting ECG: NSR Stress ECG: No significant ST changes Arrhythmia: PVCs Clinical Exercise duration: 04:00 min Highest Stage Achieved: Exercise capacity: 1.0 METs Stress ECG Conclusion Symptoms: SOA, chest tightness. Arrhythmias/Ectopy: PVC. ST-T Changes: No significant ST changes. Conclusion: Unremarkable Lexiscan stress. Myoview images are reported separately. Test Summary REST . . . . . . . Sitting REST 05:22 . . 81 . 135/ 83 . . Stage 1 01:00 . . 104 . . . . Stage 2 01:00 . . 101 . 128/ 78 . . Stage 3 01:00 . . 93 . 144/ 81 . . Stage 4 01:00 . . 92 . 131/ 80 . Stop exercise at 04:00 RECOVERY 01:00 . . 94 . . . . RECOVERY 02:00 . . 93 . 130/ 84 . . RECOVERY 02:49 . . 86 . 137/ 84 . . Electronically signed by : Suly Berry MD 01/22/2024 11:57:41
[2024-01-18] MEDS: ISOTOPE MYOVIEW (PER STUDY) 1 DOSE IV (13:29)
[2024-01-18] MEDS: REGADENOSON 0.4MG/5ML SYRINGE 0.4 MG IV (13:29)
[2024-01-18] MEDS: SODIUM CHLORIDE 0.9% 10ML SYR (RAD ONLY) 10 ML IV ×2 (13:30)
== END 2024-01-18 23:59 | disposition home or self-care (01) ==
LOC: RAD 10:29
PROVIDERS: PCP Physician Assistant; Visit Provider Physician Assistant
DX: R06.00 Dyspnea, unspecified (principal); R07.9 Chest pain, unspecified; J44.9 Chronic obstructive pulmonary disease, unspecified; R05.9 Cough, unspecified; R09.02 Hypoxemia; Q24.8 Other specified congenital malformations of heart
CPT/HCPCS: 78452; 93017; 93018; A9502; J2785

== ENCOUNTER 2024-01-19 09:42 | Outpatient (CLI) | payer MEDICAID, SELFPAY ==
--- NOTE | 2024-01-19 09:42 | MR_ITS ---
APPROVED REPORT [employer] [place]: CLINICAL INDICATION Interatrial shunt, evaluate for Qp:Qs ratio and RV size and function TECHNIQUE Image Acquisition: Cardiac magnetic resonance (CMR) was performed on Siemens Espree MRI 1.5T scanner. Software platform sequences were performed using the Siemens UNI5 MR B19 platform. A set of three-plane, low-resolution, large [id number] localizers were initially acquired. Then axial, coronal, sagittal TrueFISP, as well as axial HASTE images, were obtained. These were followed by gated TrueFISP breathold cinematic sequences obtained in the short axis with 8 mm slices and 2 mm gaps, 2-chamber (vertical long axis), 3-chamber, 4-chamber (horizontal long axis). A bolus of contrast was injected intravenously with first-pass sequences obtained in the short axis and four-chamber planes. After approximately 10 minutes, a TI biometrics technician sequence was performed to determine the optimal TI time. Using the optimized TI time, delayed contrast enhancement segmented inversion???recovery TurboFLASH sequences were obtained in the short axis, 2-chamber, 3-chamber, and 4-chamber projections. 2D-velocity phase mapping was performed. Functional parameters were calculated by offline analysis on an independent workstation ([employer], [id number] [email or web address]). Contrast: ProHance??? (Gadoteridol) FINDINGS MORPHOLOGY AND FUNCTION Left ventricle: The left ventricle is normal in size. The indexed left ventricular end-diastolic volume (LVEDVi) is 49.7 ml/m2 (reference range 57-105 ml/m2 in males, 56-96 ml/m2 in females). Normal left ventricular systolic function is present. There is normal left ventricular wall thickness. There are no regional wall motion abnormalities noted. LVEF is calculated at 64.6% (reference range 57-77%). Right ventricle: The right ventricle is normal in size. The indexed right ventricular end-diastolic volume (RVEDVi) is 64.3 ml/m2 (reference range 61-121 ml/m2 in males, 48-112 ml/m2 in females). Mild reduction in right ventricular systolic function is present. RVEF is calculated at 48.1% (reference range 52-72% in males, 51-71% in females). Atria: The left atrium is normal in size. The maximum indexed left atrial volume is 16 ml/m2 (reference range 26-52 ml/m2 in males, 27-53 ml/m2 in females). The right atrium is normal in size. The maximum indexed right atrial volume is 18 ml/m2 (reference range 18-90 ml/m2). Aorta: The diameter of the aortic annulus is normal, measuring 22 mm (coronal view reference range 21-30 mm in males, 19-27 mm in females). The diameter of the aortic sinus is normal, measuring 30 mm (coronal view reference range 25-42 mm in males, 24-36 mm in females). The diameter of the sinotubular junction is normal, measuring 27 mm (coronal view reference range 18-32 mm in males, 18-28 mm in females). The diameters of the ascending and descending thoracic aorta are normal. Main pulmonary artery: The main pulmonary artery diameter is mildly increased, measuring 3.1 cm in diameter. Pericardium: The pericardial thickness is normal. The pericardial thickness measures 2.0 mm (normal < 4.0 mm). There is no pericardial effusion. VALVES The valvular morphologies in the visualized sequences appear normal. There is no significant valvular stenosis or regurgitation of the mitral, aortic, tricuspid, or pulmonic valve noted visually. Systolic anterior motion of the mitral valve is not visualized. Ratio of pulmonary to systemic flow, Qp:Qs ratio = 1.14 (normal < or = 1.2, hemodynamically significant shunt > 1.5), demonstrating no evidence of hemodynamically significant shunt. TISSUE CHARACTERIZATION Resting Perfusion: Normal myocardial blood flow at rest. No evidence of resting hypoperfusion. Myocardial Fibrosis and/or edema: Normal gadolinium kinetics are present. No evidence of late gadolinium enhancement is noted, consistent with absence of myocardial scarring, infarction, or necrosis. T2-weighted imaging demonstrates no evidence of myocardial edema or inflammation. OTHER Dependent atelectasis vs. infiltrates in the right lower lobe region. IMPRESSION Normal LV size with normal LV systolic function. LVEDVi= 49.7 ml/m2 and LVEF= 64.6%. Normal RV size with mild reduction in RV systolic function. RVEDVi= 64.3 ml/m2 and RVEF= 48.1%. No atrial enlargement. No CMR evidence of myocardial scarring, infarction, or necrosis. No evidence of myocardial edema or inflammation. Perfusion analysis demonstrates normal blood flow at rest with no evidence of resting hypoperfusion. Ratio of pulmonary to systemic flow, Qp:Qs ratio = 1.14 (normal < or = 1.2, hemodynamically significant shunt > 1.5), demonstrating no evidence of hemodynamically significant shunt. The main PA is mildly dilated (3.1 cm in diameter). Dependent atelectasis vs. infiltrates in the right lower lobe region. Correlate the pulmonay finding with new or recent CT chest. Overall, this CMR demonstrates normal LV systolic function and mild reduction in RV systolic function. In the setting of interatrial shunt, there is normal Qp:Qs ratio. Further evaluation for alternative etiologies of RV dysfunction is suggested, namely pulmonary disease in the setting of known emphysema and basilar atelectasis versus infiltrates and dilated PA. COMPARISON None CRITICAL RESULT None COMMUNICATION The results of this CMR have been communicated with the patient on the day of her scheduled LATOYA and afterwards at the time of her routine outpatient follow-up. The findings of this cardiac MR were reviewed, reported, and signed by Reynold Berry MD (Truck Washer). Conclusion Electronically signed by : Suly Berry MD 02/06/2024 21:45:44
[2024-01-19] MEDS: GADOTERIDOL INJ 20ML SYRINGE 14 ML IV (12:06)
[2024-01-19] MEDS: 0.9% SODIUM CHLORIDE 20ML VIAL 20 ML IV (12:06)
[2024-01-19] MEDS: SODIUM CHLORIDE 0.9% 10ML SYR (RAD ONLY) 10 ML IV (12:07)
== END 2024-01-19 23:59 | disposition home or self-care (01) ==
LOC: RAD 09:42
PROVIDERS: PCP Physician Assistant; Visit Provider Physician Assistant
DX: Q24.8 Other specified congenital malformations of heart (principal); R06.00 Dyspnea, unspecified; R07.9 Chest pain, unspecified; R05.9 Cough, unspecified; R09.02 Hypoxemia; J44.9 Chronic obstructive pulmonary disease, unspecified
CPT/HCPCS: 75561; A9576

== ENCOUNTER → 2024-01-24 08:09 | Day surgery (SDC) | payer MEDICAID, SELFPAY ==
[2024-01-23 09:51] VITALS: BMI 18.6
--- NOTE | 2024-01-24 08:15 | ECG_ITS ---
APPROVED REPORT Exam: Resting ECG HR:72 bpm ECG Measurements Heart Rate 72 AXES SC 172 P 81 QRSd 89 QRS 28 QT 371 T 64 QTc 396 Conclusion SINUS RHYTHM NORMAL ECG UNCONFIRMED REPORT Electronically signed by : Mark Park MD 01/26/2024 10:29:46
[2024-01-24 08:16] VITALS: BP 133/75; PULSE 81; RESP 20; TEMP 36.9; O2SAT 98; BMI 19.3
[2024-01-24 08:49] LABS: Basophils # 0.1 K/mm3 (0-0.2); Basophils % 1.4 % (0.1-2.0); Eosinophils # 0.3 K/mm3 (0.0-0.4); Eosinophils % 4.9 % (0.1-12.0); Hematocrit 39.8 % (37.0-47.0); Hemoglobin 12.4 g/dL (12.2-16.2); Lymphocytes # 1.3 K/mm3 (0.7-4.5); Lymphocytes % 19.1 % (10-50); Mean Corpuscular HGB Conc 31.3 g/dL (31.8-35.4); Mean Corpuscular Hemoglobin 31.6 pg (27.0-31.2); Mean Corpuscular Volume 100.9 fl (81-99); Mean Platelet Volume 7.9 fl (7.4-10.4); Monocytes # 0.5 K/mm3 (0.1-1.0); Monocytes % 7.3 % (1.7-9.3); Neutrophils # 4.5 K/mm3 (1.8-7.8); Neutrophils % 67.4 % (37.0-80.0); Platelet Count 286 K/mm3 (142-424); Red Blood Count 3.94 M/mm3 (4.20-5.40); Red Cell Distribution Width 13.4 % (11.5-17.5); White Blood Count 6.7 K/mm3 (4.8-10.8)
--- NOTE | 2024-01-24 08:50 | CA_ITS ---
APPROVED REPORT EXAM: Comprehensive 2D, Doppler, and color-flow Echocardiogram Cribbing Setter: RT Hair(R) Ht: 5 ft 6 in Wt: 125lbs BSA: 1.64 BP: 151/91 mmHg Indications: Interatrial shunt seen on TTE, COPD, smoker, SOB, HTN. Procedure After obtaining informed consent, patient underwent transesophageal echo in the [facility]. Type of Sedation : MAC Sedation start time: 11:05 Case end Time: 11:24 Sedation was achieved intravenously with: Propofol () Transesophageal probe was inserted and advanced into esophagus without difficulty by Dr. Reynold Berry. The LATOYA was performed without complications. Throughout the procedure, the blood pressure, pulse oximetry, cardiac rhythm, and rate were monitored. The patient tolerated the procedure without adverse effects. Recovery from conscious sedation was uneventful and vital signs were stable. Left Ventricle The left ventricle is normal size. The left ventricular systolic function is normal. The left ventricular ejection fraction is within the normal range. There is increased LV wall thickness. There is normal LV segmental wall motion. LVEF is 55%. Right Ventricle The right ventricle is mildly dilated. The right ventricular systolic function is normal. Atria The left atrium size is normal. No thrombus is visualized in the left atrium or appendage. The right atrium size is normal. The interatrial septum appears aneurysmal and hypermobile. There is a large PFO present, with left to right interatrial shunt. Administration of bubbles demonstrates migration of bubbles from the RA to the LA through the PFO within 3 cardiac cycles. The PFO tunnel measures 1.0 cm in length and 0.4 cm in width. Qp:Qs=1.0 (LVOT diameter 2.0 cm, LVOT VTI 27 cm, RVOT diameter 2.7 cm, RVOT VTI 14.6). Aortic Valve The aortic valve is normal in structure. The aortic valve is trileaflet. There is no aortic valvular stenosis. Trace aortic regurgitation. Mitral Valve There is borderline prolapse of the posterior mitral valve leaflet. No evidence of mitral valve stenosis. Trace mitral regurgitation. Tricuspid Valve The tricuspid valve leaflets are thin and pliable. Trace tricuspid regurgitation. There is insufficient TR jet to estimate RVSP. Pulmonic Valve The pulmonary valve is normal in structure. Trace pulmonic regurgitation. Great Vessels The aortic root is normal in size. The ascending aorta is normal in size. Pericardium There is no pericardial effusion. Other Information Study Quality: Fair Conclusion Normal biventricular systolic function. Mild RV dilation. No significant valvular stenosis or regurgitation. The interatrial septum appears aneurysmal and hypermobile. There is a large PFO present, with left to right interatrial shunt. Administration of bubbles demonstrates migration of bubbles from the RA to the LA through the PFO within 3 cardiac cycles. The PFO tunnel measures 1.0 cm in length and 0.4 cm in width. Qp:Qs=1.0 (LVOT diameter 2.0 cm, LVOT VTI 27 cm, RVOT diameter 2.7 cm, RVOT VTI 14.6). In the setting of large PFO and RV dilation, further evaluation with cardiac MRI is suggested to evaluate RV function and Qp:Qs ratio on MRI. Electronically signed by : Suly Berry MD 01/25/2024 12:01:42
[2024-01-24] MEDS: ONDANSETRON 4MG/2ML VIAL 4 MG IV (08:55)
[2024-01-24 08:58] LABS: Chloride 97 mmol/L (98-107)
[2024-01-24 08:59] LABS: Potassium 3.8 mmoL/L (3.5-5.1); Sodium 138 mmol/L (136-145)
[2024-01-24 09:01] LABS: Blood Urea Nitrogen 8 mg/dl (7-17); Creatinine Clearance Estimated 111 mL/min (50-200); Estimated Glomerular Filt Rate 129 ml/min (>60); GFR (African American) 156 ML/MIN (>60); INR 0.92 (0.9-1.1)
[2024-01-24 09:02] LABS: Anion Gap 5.8 mEq/L (5-15); Calcium 9.3 mg/dl (8.4-10.2); Carbon Dioxide 39 mmol/L (22.0-30.0); Glucose 81 mg/dl (74-100)
--- NOTE | 2024-01-24 10:50 | P.PNANES_ITS ---
[facility] Disclaimer: The information contained in this section may have been updated after the patient was seen, as this information can be updated by other users. Medical History Interatrial cardiac shunt Dyspnea Chest pain in adult Hypoxia Cough Hypothyroidism (~03/22/18) Epigastric pain Anorexia Early satiety Unexplained weight loss Interstitial cystitis Allergic rhinitis GERD (gastroesophageal reflux disease) Low back pain Edema Vitamin D deficiency Hypertension COPD (chronic obstructive pulmonary disease) Surgical History H/O: hysterectomy Family History Mother Family history of acute congestive heart failure Other Family history of diabetes mellitus type II Family history of hyperlipidemia Family history of hypertension Social History Smoking Status: Unknown if ever smoked alcohol intake: never substance use type: former substance user, opiates and painkillers current occupational status: unemployed and disabled Travel in the last 8 weeks: None household members: spouse and family housing: house caffeine: Yes [facility] Anesthesia Checklist Patient Identification Patient Identification: Arm Band and Verbal (Name & ) Structural Data Admitted From: Home Planned Operative Procedure/s: LATOYA Consent for Planned Operative Procedure(s) Verified: Yes Verified Documents: Surgical Consent and History and Physical NPO Status Verified Time NPO: 23:00 Chart Verification Results Verified: CBC, BMP, PT, PTT, INR, ECG and Chest Xray Additional verifications Patient : No Anesthesia Reactions: No Cardiovascular Assessment Heart Sounds: S1 & S2 Pulse Rhythm: Irregular Peripheral Edema: No Airway Assessment Mallampati Score:: Class III C-Spine Mobility Assessed: Yes (FROM) TMJ Mobility Assessed: Yes Dentition: Edentulous Neurological Assessment Level of Consciousness: Awake, Alert, Appropriate and Follows Commands Hx Seizures: No Numbness or tingling in extremities: No Anesthesia Plan Anesthesia Risk discussed: Yes Anesthesia Plan: Verified ASA Class: IV Anesthesia Type: MAC
[2024-01-24 11:00] VITALS: O2SAT 100
[2024-01-24 11:25] VITALS: BP 108/70; PULSE 79; RESP 14; TEMP 36.7; O2SAT 97
--- NOTE | 2024-01-24 11:28 | EXP.ANES.I ---
[facility] Anesthesia Record Part I Anesthesia Record I Intake, IV Amount: 200 Hydration: Adequate Estimated blood loss (mL): 0 Urine output (mL): 0 Blood Products used (#): none Blood Pressure: 108/70 SaO2: 98 Pulse Rate: 77 Airway Patency: Patent Respiratory Rate: 16 Temperature: 98 F Patient is:: Awake (Talking) and Stable Stable to PACU at:: 11:30
[2024-01-24 11:29] VITALS: BP 108/70; PULSE 77; RESP 16; TEMP 36.6; O2SAT 98
[2024-01-24 11:35] VITALS: BP 108/74; PULSE 79; RESP 15; O2SAT 94
[2024-01-24 11:45] VITALS: BP 117/78; PULSE 73; RESP 15; O2SAT 93
== END | disposition home or self-care (01) ==
PROVIDERS: PCP Physician Assistant; Visit Provider Internal Medicine
DX: J44.9 Chronic obstructive pulmonary disease, unspecified (principal); Z79.899 Other long term (current) drug therapy; R07.9 Chest pain, unspecified; R06.02 Shortness of breath; E55.9 Vitamin D deficiency, unspecified; F17.210 Nicotine dependence, cigarettes, uncomplicated; Q21.8 Other congenital malformations of cardiac septa; E03.9 Hypothyroidism, unspecified; J96.11 Chronic respiratory failure with hypoxia; Z73.89 Other problems related to life management difficulty
CPT/HCPCS: 80048; 85025; 85610; 93005; 93270; 93312; 93319; J2405

== ENCOUNTER 2024-02-16 07:32 | Day surgery (SDC) | payer MEDICAID, SELFPAY ==
[2024-02-16] VITALS (10 sets, daily range): BP systolic 116–143; BP diastolic 76–101; PULSE 83–97; RESP 16–18; TEMP 36.6–36.8; O2SAT 90–97; BMI 18.6
--- NOTE | 2024-02-16 07:12 | IR_ITS ---
APPROVED REPORT Patient Location: Outpatient PROCEDURES Right heart catheterization Left heart catheterization Left ventriculogram Selective coronary angiogram INDICATION Pulmonary hypertension, Intracardial pulmonary shunt, Abnormal Myoview Informed consent was obtained prior to the procedure. COMPLICATIONS NONE Estimated Blood Loss: LESS THAN 10 ML TECHNIQUE One percent lidocaine was used to anesthetize the right anterior aspect of the right wrist. The right radial artery was accessed via the Seldinger technique and a 6 [place]araguan hydrophilic sheath was placed in the right radial artery. Following this one percent lidocaine was used to anesthetize the right anterior aspect of the right neck. The right internal jugular vein was accessed via the Seldinger technique and a 7 [place]araguan sheath was placed in the right internal jugular vein. Following this an arterial cocktail was administered using 5000U heparin, 2.5 mg verapamil, 1mg Lidocaine and 800mcg nitroglycerin into the right radial sheath. A papa catheter was used to perform left heart catheterization left ventriculogram and selective coronary angiography while a [place] catheter was used to perform right heart catheterization. Saturations were obtained in the pulmonary artery and right atrium. At the end of the procedure the arterial sheath was removed good hemostasis was achieved using Traclet band. Patient was transferred to the postop holding area in stable condition for venous sheath removal. ANGIOGRAPHIC RESULTS The left main artery Normal The left anterior descending artery Has proximal 10% luminal irregularities with a mid vessel 20% myocardial bridge during systole. The LAD is a large-caliber vessel which wraps the apex The circumflex artery Is large codominant with 20% stenoses in the first obtuse marginal artery The right coronary artery Codominant with proximal mid vessel 30% stenoses The DARNELL ventriculogram reveals Normal 65% The left ventricular end-diastolic pressure 5 mmHg Right atrial pressure 5 mmHg Pulmonary artery pressure 32/15 mmHg Pulmonary occlusion pressure 5 mmHg Right atrial saturation 81% Pulmonary artery saturation 81% Aortic saturation 100% Hemoglobin 12 Cardiac output 7.4 L/min IMPRESSION Mild nonflow limiting coronary artery disease as described above Mild clinically insignificant intra myocardial bridge as described above Normal ejection fraction Borderline elevated pulmonary artery pressure with normal left-sided filling pressures PLAN 1. Continue medical management with risk factor modification Electronically signed by : Edin Howard MD 02/16/2024 11:59:34
[2024-02-16 07:47] LABS: Basophils # 0.1 K/mm3 (0-0.2); Basophils % 0.6 % (0.1-2.0); Eosinophils # 0.3 K/mm3 (0.0-0.4); Eosinophils % 2.7 % (0.1-12.0); Hematocrit 38.9 % (37.0-47.0); Lymphocytes # 1.5 K/mm3 (0.7-4.5); Lymphocytes % 14.4 % (10-50); Mean Corpuscular Hemoglobin 31.9 pg (27.0-31.2); Mean Platelet Volume 8.1 fl (7.4-10.4); Monocytes # 0.5 K/mm3 (0.1-1.0); Monocytes % 4.8 % (1.7-9.3); Neutrophils # 8.1 K/mm3 (1.8-7.8); Neutrophils % 77.5 % (37.0-80.0); Platelet Count 408 K/mm3 (142-424); Red Blood Count 3.78 M/mm3 (4.20-5.40); Red Cell Distribution Width 14.7 % (11.5-17.5); White Blood Count 10.5 K/mm3 (4.8-10.8)
[2024-02-16 08:04] LABS: Anion Gap 4.7 mEq/L (5-15); Blood Urea Nitrogen 9 mg/dl (7-17); Calcium 9.1 mg/dl (8.4-10.2); Carbon Dioxide 37 mmol/L (22.0-30.0); Chloride 99 mmol/L (98-107); Creatinine Clearance Estimated 91 mL/min (50-200); Estimated Glomerular Filt Rate 104 ml/min (>60); GFR (African American) 126 ML/MIN (>60); Glucose 117 mg/dl (74-100); Potassium 3.7 mmoL/L (3.5-5.1); Sodium 137 mmol/L (136-145)
[2024-02-16] MEDS: LIDOCAINE 1% 10ML MDV 20 ML IJ (10:19)
[2024-02-16] MEDS: HEPARIN 1,000 UNITS/ML 10ML VIAL (CATH LAB) 10000 UNIT IV (10:19)
[2024-02-16] MEDS: diphenhydrAMINE 50MG/ML VIAL 50 MG IV (10:19)
[2024-02-16] MEDS: HEPARIN 1,000 UNITS/500ML NS (CATH LAB) 3000 UNIT IV (10:19)
[2024-02-16] MEDS: NITROGLYCERIN 800MCG/8ML SYR (CATH LAB) 800 MCG IA (10:19)
[2024-02-16] MEDS: VERAPAMIL 2.5MG/ML 2ML VIAL 2.5 MG IV (10:19)
[2024-02-16] MEDS: 0.9 % SODIUM CHLORIDE 500 ML 25 ML IV (10:19)
[2024-02-16] MEDS: MIDAZOLAM HCL 1MG/1ML 5ML VIAL 1 MG IV (10:24)
[2024-02-16] MEDS: IOPAMIDOL-370 (76%);100ML BOTTLE 50 ML IV (11:25)
[2024-02-16 11:27] LABS: CATHL Arterial O2 SAT 81.3 % (90-100); CATHL Venous O2 SAT 81.3 % (75-80)
== END 2024-02-16 13:10 | disposition home or self-care (01) ==
PROVIDERS: PCP Physician Assistant; Visit Provider Internal Medicine
DX: R93.1 Abnormal findings on diagnostic imaging of heart and coronary circulation (principal); I20.89 Other forms of angina pectoris; R06.02 Shortness of breath; Q24.8 Other specified congenital malformations of heart; J44.9 Chronic obstructive pulmonary disease, unspecified; Z79.899 Other long term (current) drug therapy; E03.9 Hypothyroidism, unspecified; J96.11 Chronic respiratory failure with hypoxia; Z99.81 Dependence on supplemental oxygen; I27.20 Pulmonary hypertension, unspecified; I10 Essential (primary) hypertension; Q21.12 Patent foramen ovale; I27.89 Other specified pulmonary heart diseases
CPT/HCPCS: 36415; 80048; 82810; 85025; 93453; 99152; C1725; C1769; C1894; J1644; J2250; Q9967

== ENCOUNTER 2024-04-16 16:01 | Outpatient (CLI) | payer MEDICAID, SELFPAY ==
--- NOTE | 2024-04-16 16:12 | XR_ITS ---
FINAL REPORT CLINICAL HISTORY: cough, soa x 3 days smoker x 30 yrs, copd COMPARISON: 01/01/2024 FINDINGS: Two views of the chest were obtained. There are large lung volumes and flattening of the hemidiaphragms consistent with chronic obstructive pulmonary disease. The heart size and pulmonary vascularity are within normal limits. The mediastinum is normal. No acute pulmonary abnormality is identified. There is no pneumothorax. The bony thorax is intact. IMPRESSION: Findings consistent with changes of chronic obstructive pulmonary disease. No acute pulmonary abnormality identified. Reviewed, Interpreted and Dictated by Osvaldo Kolb III, MD Transcribed by Janett Bolden Authenticated and [facility]
== END 2024-04-16 23:59 | disposition home or self-care (01) ==
LOC: RAD 16:02
PROVIDERS: PCP Physician Assistant; Visit Provider Physician Assistant
DX: J44.9 Chronic obstructive pulmonary disease, unspecified (principal); R05.9 Cough, unspecified
CPT/HCPCS: 71046

== ENCOUNTER 2024-05-14 20:17 | Inpatient (IN) | payer MEDICAID, SELFPAY ==
[2024-05-14] VITALS (7 sets, daily range): BP systolic 94–108; BP diastolic 58–68; PULSE 91–101; RESP 18; TEMP 36.6–36.8; O2SAT 90–99; BMI 19.5; BMI 19.8
--- NOTE | 2024-05-14 20:24 | ECG_ITS ---
APPROVED REPORT Exam: Resting ECG HR:98 bpm ECG Measurements Heart Rate 98 AXES NV 160 P 81 QRSd 87 QRS 264 QT 326 T 65 QTc 381 Conclusion SINUS RHYTHM INDETERMINATE AXIS S1-S2-S3 PATTERN, CONSISTENT WITH PULMONARY DISEASE, RVH, OR NORMAL VARIANT ABNORMAL ECG Electronically signed by : CE ANAYA, 05/14/2024 22:41:47
--- NOTE | 2024-05-14 20:34 | PC.NURSE ---
Dr. Tam at [facility] for pt eval
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
--- NOTE | 2024-05-14 20:38 | PC.NURSE ---
notified respiratory of [facility]
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
[2024-05-14 20:45] LABS: Lactate Venous 1.3 mmol/L (0.4-2.0); VBG Base Excess 4.5 mmol/L (-2.4-2.3); VBG HCO3 31.2 mmol/L (23-30); VBG PH 7.28 mmol/L (7.31-7.41); VBG PO2 42.9 mmol/L (28-40); VBG Total CO2 33.3 mmol/L (23-27)
[2024-05-14 20:47] LABS: VBG PCO2 67.7 mmol/L (35-51)
[2024-05-14] MEDS: ACETAMINOPHEN 500MG TAB 1000 MG PO (20:57)
[2024-05-14] MEDS: KETOROLAC 30MG/ML VIAL 15 MG IV (20:57)
[2024-05-14] MEDS: IPRATROPIUM/ALBUTEROL 3 ML NEB 9 ML IH (20:57)
[2024-05-14] MEDS: MORPHINE 4MG/ML SYRINGE 4 MG IV (20:58)
[2024-05-14] MEDS: LIDOCAINE 5% TRANSDERMAL PATCH 1 EACH TP (20:58)
[2024-05-14] MEDS: ONDANSETRON 4MG/2ML VIAL 4 MG IV (20:58)
[2024-05-14 21:04] LABS: Basophils # 0.1 K/mm3 (0-0.2); Basophils % 0.7 % (0.1-2.0); Eosinophils # 0.2 K/mm3 (0.0-0.4); Eosinophils % 1.3 % (0.1-12.0); Hematocrit 40.5 % (37.0-47.0); Hemoglobin 12.4 g/dL (12.2-16.2); Lymphocytes # 1.3 K/mm3 (0.7-4.5); Lymphocytes % 11.3 % (10-50); Mean Corpuscular HGB Conc 30.7 g/dL (31.8-35.4); Mean Corpuscular Hemoglobin 31.2 pg (27.0-31.2); Mean Corpuscular Volume 101.9 fl (81-99); Mean Platelet Volume 7.9 fl (7.4-10.4); Monocytes # 0.8 K/mm3 (0.1-1.0); Neutrophils # 9.2 K/mm3 (1.8-7.8); Neutrophils % 79.6 % (37.0-80.0); Platelet Count 383 K/mm3 (142-424); Red Blood Count 3.97 M/mm3 (4.20-5.40); Red Cell Distribution Width 14.1 % (11.5-17.5); White Blood Count 11.5 K/mm3 (4.8-10.8)
[2024-05-14 21:10] LABS: Alanine Aminotransferase 39 U/L (12-78); Albumin Level 3.4 g/dl (3.5-5.0); Albumin/Globulin Ratio 1.1 (1.1-1.8); Alkaline Phosphatase 104 U/L (38-126); Anion Gap 1.9 mEq/L (5-15); Aspartate Amino Transferase 26 U/L (14-36); Bilirubin,Total 0.6 mg/dl (0.2-1.3); Blood Urea Nitrogen 12 mg/dl (7-17); Calcium 8.5 mg/dl (8.4-10.2); Carbon Dioxide 34 mmol/L (22.0-30.0); Chloride 101 mmol/L (98-107); Creatinine Clearance Estimated 81 mL/min (50-200); Estimated Glomerular Filt Rate 87 ml/min (>60); GFR (African American) 105 ML/MIN (>60); Globulin 3.1 g/dL (1.3-3.2); Glucose 114 mg/dl (74-100); Potassium 3.9 mmoL/L (3.5-5.1); Sodium 133 mmol/L (136-145); Total Protein,Serum 6.5 g/dl (6.3-8.2)
[2024-05-14 21:11] LABS: Activated Partial Thrombo Time 27.3 seconds (22.8-30.6); INR 0.97 (0.9-1.1); Prothrombin Time 10.9 seconds (10.1-12.5)
[2024-05-14] MEDS: IOPAMIDOL-370 (76%);100ML BOTTLE 80 ML IV (21:24)
[2024-05-14] MEDS: SODIUM CHLORIDE 0.9% 10ML SYR (RAD ONLY) 10 ML IV (21:24)
[2024-05-14] MEDS: 0.9 % SODIUM CHLORIDE 50 ML VIAL IV (21:24)
[2024-05-14 21:30] LABS: Troponin I < 0.01 ng/ml (0.00-0.034)
--- NOTE | 2024-05-14 21:42 | PC.NURSE ---
Rounded on pt. No complaints voiced at this time. Call light remains within reach.
[2024-05-14] MEDS: DOXYCYCLINE HYCLATE 100 MG in 0.9 % SODIUM CHLORIDE 250 ML 166.667 MG IV (22:04)
[2024-05-14] MEDS: METHYLPREDNISOLONE SOD SUCC 125MG VIAL 125 MG IV (22:05)
[2024-05-14 22:20] LABS: HIV (1&2) Antibody Rapid NONREACTIVE (NONREACTIVE)
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
[2024-05-14] MEDS: MAGNESIUM SULFATE IN WATER 2 GM/50 ML PIGGYBACK IV (23:34)
[2024-05-14] MEDS: guaiFENesin 600 MG TAB.ER.12H PO (23:52)
[2024-05-15] VITALS (14 sets, daily range): BP systolic 98–129; BP diastolic 52–67; PULSE 75–110; RESP 14–20; TEMP 36.6–36.8; O2SAT 90–97; BMI 19.7
[2024-05-15 00:05] LABS: Adenovirus,PCR Not Detected (NotDetected); Bordetella Pertussis Not Detected (NotDetected); Chlamydophila Pneumoniae, PCR Not Detected (NotDetected); Coronavirus 19, PCR Not Detected (NotDetected); Coronavirus 229E Not Detected (NotDetected); Coronavirus NL63 Not Detected (NotDetected); Coronavirus OC43 Not Detected (NotDetected); Coronovirus HKU1,PCR Not Detected (NotDetected); Human Metapneumovirus Not Detected (NotDetected); Influenza A, PCR Not Detected (NotDetected); Influenza AH1, 2009 Not Detected (NotDetected); Influenza AH1, PCR Not Detected (NotDetected); Influenza AH3,PCR Not Detected (NotDetected); Influenza B, PCR Not Detected (NotDetected); Mycoplasma Pneumoniae, PCR Not Detected (NotDetected); Parainfluenza 1, PCR Not Detected (NotDetected); Parainfluenza 2, PCR Not Detected (NotDetected); Parainfluenza 3, PCR Not Detected (NotDetected); Parainfluenza 4, PCR Not Detected (NotDetected); Respiratory Syncytial Virus Not Detected (NotDetected); Rhinovirus/Enterovirus Not Detected (NotDetected)
[2024-05-15 01:02] LABS: Troponin I < 0.01 ng/ml (0.00-0.034)
[2024-05-15] MEDS: ROPINIROLE 1MG TABLET 0.5 MG PO ×2 (01:31→20:04)
[2024-05-15] MEDS: GABAPENTIN 300MG CAPSULE 300 MG PO ×4 (01:31→20:04)
[2024-05-15] MEDS: IPRATROPIUM/ALBUTEROL 3 ML NEB IH ×3 (01:57→09:14)
[2024-05-15] MEDS: KETOROLAC 30MG/ML VIAL 15 MG IV ×2 (02:26→16:46)
[2024-05-15 03:47] LABS: Troponin I < 0.01 ng/ml (0.00-0.034)
[2024-05-15 06:40] LABS: Albumin Level 3.1 g/dl (3.5-5.0); Chloride 101 mmol/L (98-107); Potassium 3.3 mmoL/L (3.5-5.1); Sodium 136 mmol/L (136-145)
[2024-05-15 06:43] LABS: Alanine Aminotransferase 46 U/L (12-78); Alkaline Phosphatase 117 U/L (38-126); Anion Gap 10.3 mEq/L (5-15); Aspartate Amino Transferase 26 U/L (14-36); Bilirubin,Total 0.4 mg/dl (0.2-1.3); Blood Urea Nitrogen 10 mg/dl (7-17); Calcium 8.4 mg/dl (8.4-10.2); Carbon Dioxide 28 mmol/L (22.0-30.0); Creatinine Clearance Estimated 114 mL/min (50-200); Estimated Glomerular Filt Rate 128 ml/min (>60); GFR (African American) 155 ML/MIN (>60); Globulin 3.1 g/dL (1.3-3.2); Glucose 198 mg/dl (74-100); Total Protein,Serum 6.2 g/dl (6.3-8.2)
[2024-05-15 06:44] LABS: Magnesium 2.3 mg/dl (1.6-2.3)
[2024-05-15 06:46] LABS: Basophils % 0.2 % (0.1-2.0); Hematocrit 35.6 % (37.0-47.0); Hemoglobin 11.4 g/dL (12.2-16.2); Lymphocytes # 0.6 K/mm3 (0.7-4.5); Lymphocytes % 4.7 % (10-50); Mean Corpuscular HGB Conc 32.1 g/dL (31.8-35.4); Mean Corpuscular Hemoglobin 32.6 pg (27.0-31.2); Mean Corpuscular Volume 101.6 fl (81-99); Mean Platelet Volume 8.1 fl (7.4-10.4); Monocytes # 0.3 K/mm3 (0.1-1.0); Monocytes % 2.1 % (1.7-9.3); Platelet Count 355 K/mm3 (142-424); Red Cell Distribution Width 14.1 % (11.5-17.5); White Blood Count 11.8 K/mm3 (4.8-10.8)
[2024-05-15 06:54] LABS: MANUAL DIFFERENTIAL MANUAL DIFFERENTIAL (MANUAL DIFF)
[2024-05-15 07:21] LABS: Lymphocytes % 5 % (10-50); Macrocytosis 1+; Neutrophils % 95 % (42-76); Platelet Estimate Normal; Total Cells Counted 100
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
[2024-05-15 08:08] LABS: Triiodothryronine (T3) Uptake 42 % (23.5-40.5)
[2024-05-15 08:09] LABS: Free Thyroxine Index 2.4 ug/dL (5.93-13.13); T4 (Thyroxine) 5.8 ug/dl (5.53-11.0)
[2024-05-15] MEDS: MORPHINE 2MG/ML SYRINGE 2 MG IV (08:22)
[2024-05-15 08:23] LABS: Thyroid Stimulating Hormone 2.32 uIU/mL (0.465-4.68)
[2024-05-15] MEDS: ASPIRIN EC 81MG TABLET 81 MG PO (08:33)
[2024-05-15] MEDS: buPROPion HCL 100 MG TABLET PO ×2 (08:33→20:04)
[2024-05-15] MEDS: CARVEDILOL 3.125MG TABLET 3.125 MG PO ×2 (08:33→20:04)
[2024-05-15] MEDS: LEVOTHYROXINE 137MCG (0.137MG) TAB 137 MCG PO (08:33)
[2024-05-15] MEDS: guaiFENesin 600 MG TAB.ER.12H PO ×2 (08:34→20:04)
[2024-05-15] MEDS: POTASSIUM CHLORIDE 10MEQ CAPSULE.ER 10 MEQ PO ×2 (08:34→20:04)
[2024-05-15] MEDS: ENOXAPARIN 40MG/0.4ML SYRINGE 40 MG SQ (08:34)
[2024-05-15] MEDS: NICOTINE 14MG/24HRS PATCH 14 MG TD (08:34)
[2024-05-15] MEDS: ISOSORBIDE MONO 30MG TAB.ER.24H 30 MG PO (08:34)
[2024-05-15] MEDS: estradioL 1 MG TABLET PO (08:34)
--- NOTE | 2024-05-15 08:35 | HMH.PHAINT1 ---
Pharmacy Intervention Comments: Home medications verified using list from pharmacy and patient interview.
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
[2024-05-15] MEDS: BUPRENORPHINE/NALOXONE 8MG/2MG ODT 1 EACH SL ×2 (10:28→20:04)
[2024-05-15] MEDS: LEVOFLOXACIN/D5W 750 MG/150 ML 750 MG/150 ML PIGGYBACK 100 MG IV (10:30)
[2024-05-15] MEDS: FLUTICASONE/UMECLIDIN/VILANTER 100/62.5/25MCG INHALER 1 PUFF IH (10:30)
[2024-05-15] MEDS: diphenhydrAMINE 50MG/ML VIAL 25 MG IV (10:47)
--- NOTE | 2024-05-15 11:48 | PC.NURSE ---
PATIENT ROOM AIR SATURATION 86% ON ROOM AIR AT REST.
[2024-05-15] MEDS: OXYCODONE 5MG IMMEDIATE RELEASE TABLET 10 MG PO ×2 (12:51→18:53)
--- NOTE | 2024-05-15 14:39 | P.PN_ITS ---
Subjective *Date: 05/15/24 *Time: 21:16 Interval history: Continues to have pain in her chest. Difficulty taking deep breaths. Significant soreness with coughing. Tolerating p.o. intake. No nausea or vomiting. Afebrile. Medical Exam Vital signs and Labs for Last 24 Hours: Vital Signs Temp Pulse Pulse Resp BP BP Pulse Ox 05/15/24 14:31 05/15/24 14:00 81 18 105/56 L 94 L 05/15/24 12:57 05/15/24 12:00 80 05/15/24 12:00 98.3 F 05/15/24 12:00 77 18 105/61 L 90 L 05/15/24 11:00 05/15/24 10:00 85 20 100/52 L 96 05/15/24 09:14 82 05/15/24 09:14 84 05/15/24 09:00 05/15/24 08:00 96 05/15/24 08:00 97.9 F 90 20 129/67 95 05/15/24 08:00 110 H 05/15/24 06:37 05/15/24 06:19 75 05/15/24 06:19 81 05/15/24 06:19 95 05/15/24 06:00 83 16 100/57 L 93 L 05/15/24 05:00 05/15/24 04:00 80 05/15/24 04:00 05/15/24 04:00 84 14 100/58 L 90 L 05/15/24 03:00 05/15/24 02:00 80 14 98/60 L 97 05/15/24 01:58 84 05/15/24 01:58 94 H 05/15/24 01:58 81 05/15/24 01:58 93 L 05/15/24 01:00 05/15/24 00:31 05/15/24 00:00 100 H 05/15/24 00:00 98.1 F 05/15/24 00:00 94 H 18 104/57 L 90 L 05/14/24 23:20 97.8 F 91 H 18 101/58 L 96 05/14/24 23:00 05/14/24 22:39 98.3 F 95 H 18 96/61 L 05/14/24 22:00 100 H 94/59 L 90 L 05/14/24 21:30 100 H 108/67 L 98 05/14/24 20:31 100 H 103/68 L 94 L 05/14/24 20:29 99 H 95/63 L 99 05/14/24 20:17 97.9 F 101 H 18 103/68 L 96 O2 Del Method O2 Flow Rate 05/15/24 14:31 Nasal Cannula 3 05/15/24 14:00 Nasal Cannula 3 05/15/24 12:57 Nasal Cannula 3 05/15/24 12:00 05/15/24 12:00 05/15/24 12:00 Nasal Cannula 4 05/15/24 11:00 Nasal Cannula 5 05/15/24 10:00 Nasal Cannula 5 05/15/24 09:14 05/15/24 09:14 05/15/24 09:00 Nasal Cannula 4 05/15/24 08:00 Nasal Cannula 4 05/15/24 08:00 Nasal Cannula 5 05/15/24 08:00 05/15/24 06:37 Nasal Cannula 5 05/15/24 06:19 05/15/24 06:19 05/15/24 06:19 Nasal Cannula 5 05/15/24 06:00 Nasal Cannula 5 05/15/24 05:00 Nasal Cannula 5 05/15/24 04:00 05/15/24 04:00 Nasal Cannula 5 05/15/24 04:00 Nasal Cannula 5 05/15/24 03:00 Nasal Cannula 3 05/15/24 02:00 Nasal Cannula 3 05/15/24 01:58 05/15/24 01:58 05/15/24 01:58 05/15/24 01:58 Nasal Cannula 3 05/15/24 01:00 Nasal Cannula 3 05/15/24 00:31 Nasal Cannula 3 05/15/24 00:00 05/15/24 00:00 05/15/24 00:00 Nasal Cannula 3 05/14/24 23:20 Nasal Cannula 3 05/14/24 23:00 Nasal Cannula 3 05/14/24 22:39 Nasal Cannula 3 05/14/24 22:00 05/14/24 21:30 05/14/24 20:31 05/14/24 20:29 05/14/24 20:17 Nasal Cannula 2 Intake and Output 05/14/24 05/15/24 05/15/24 23:59 07:59 15:59 Intake Total 290 / 990 700 / 990 Output Total 0 / 0 0 / 0 Balance 290 / 990 700 / 990 Intake: Intake, Oral Amount 240 / 940 700 / 940 Intake, Total IV Amount 50 / 50 Magnesium Sulfate in Water 2 gm 50 / 50 In 50 ml @ 50 mls/hr IV ONCE ONE Rx#:[id number] Output: Output, Urine Amount 0 / 0 0 / 0 Other: Weight 57.425 kg 56.9 kg 56.9 kg Patient Weight 05/15/24 23:59 Weight 56.9 kg Laboratory Results - last 24 hr 05/14/24 20:30: WBC 11.5 H, RBC 3.97 L, Hgb 12.4, Hct 40.5, MCV 101.9 H, MCH 31.2, MCHC 30.7 L, RDW 14.1, Plt Count 383, MPV 7.9, Neut % (Auto) 79.6, Lymph % (Auto) 11.3, [place] % (Auto) 7.0, Eos % (Auto) 1.3, Baso % (Auto) 0.7, Neut # (Auto) 9.2 H, Lymph # (Auto) 1.3, [place] # (Auto) 0.8, Eos # (Auto) 0.2, Baso # (Auto) 0.1 05/14/24 20:37: VBG pH 7.28 L, VBG pCO2 67.7 H, VBG pO2 42.9 H, VBG HCO3 31.2 H, VBG Total CO2 33.3 H, VBG O2 Saturation 82.0 H, VBG Base Excess 4.5 H, VBG Lactic Acid 1.3 05/14/24 20:52: PT 10.9, INR 0.97, APTT 27.3, Sodium 133 L, Potassium 3.9, Chloride 101, Carbon Dioxide 34 H, Anion Gap 1.9 L, BUN 12, Creatinine 0.70, Estimated Creat Clear 81, Estimated GFR 87, Est GFR ( Amer) 105, Glucose 114 H, Calcium 8.5, Total Bilirubin 0.6, AST 26, ALT 39, Alkaline Phosphatase 104, Troponin I < 0.01, Total Protein 6.5, Albumin 3.4 L, Globulin 3.1, Albumin/Globulin Ratio 1.1, HIV 1&2 Antibody Rapid Nonreactive 05/14/24 23:55: Troponin I < 0.01 05/14/24 23:58: Chlamy pneumoniae PCR Not detected, Adenovirus (PCR) Not d etected, B. pertussis DNA (PCR) Not detected, Coronavirus OC43 (PCR) Not detected, Coronavirus HKU1 (PCR) Not detected, Coronavirus 229E (PCR) Not detected, SARS-CoV-2 (PCR) Not detected, Coronavirus NL63 (PCR) Not detected, Human Metapneumovir PCR Not detected, Influenza A (H1) PCR Not detected, Influ A (H1N1/09) PCR Not detected, Influenza A (H3) PCR Not detected, Influenza Type A (PCR) Not detected, Influenza Type B (PCR) Not detected, M. pneumoniae (PCR) Not detected, Parainfluenza 1 (PCR) Not detected, Parainfluenza 2 (PCR) Not detected, Parainfluenza 3 (PCR) Not detected, Parainfluenza 4 (PCR) Not detected, RSV (PCR) Not detected, Entero/Rhino (PCR) Not detected 05/15/24 02:50: Troponin I < 0.01 05/15/24 05:52: WBC 11.8 H, RBC 3.50 L, Hgb 11.4 L, Hct 35.6 L, MCV 101.6 H, MCH 32.6 H, MCHC 32.1, RDW 14.1, Plt Count 355, MPV 8.1, Neut % (Auto) 93.0 H, Lymph % (Auto) 4.7 L, [place] % (Auto) 2.1, Eos % (Auto) 0.0 L, Baso % (Auto) 0.2, Neut # (Auto) 11.0 H, Lymph # (Auto) 0.6 L, [place] # (Auto) 0.3, Eos # (Auto) 0.0, Baso # (Auto) 0.0, Total Counted 100, Neutrophils % (Manual) 95 H, Lymphocytes % (Manual) 5 L, Platelet Estimate Normal, Macrocytosis 1+, Sodium 136, Potassium 3.3 L, Chloride 101, Carbon Dioxide 28, Anion Gap 10.3, BUN 10, Creatinine 0.50 L D, Estimated Creat Clear 114, Estimated GFR 128, Est GFR ( Amer) 155 D , Glucose 198 H D, Calcium 8.4, Magnesium 2.3, Total Bilirubin 0.4, AST 26, ALT 46, Alkaline Phosphatase 117, Total Protein 6.2 L, Albumin 3.1 L, Globulin 3.1, Albumin/Globulin Ratio 1.0 L, TSH 2.32, Free T4 Index 2.4 L, Thyroxine (T4) 5.8, T3 Uptake 42 H I & O for Labs for Last 24 Hours: Intake & Output 05/12/24 05/13/24 05/14/24 05/15/24 23:59 23:59 23:59 23:59 Intake Total 990 / 990 Output Total 0 / 0 Balance 990 / 990 Weight 57.425 kg 56.9 kg Microbiology Reports for the Last 24 Hours: Microbiology 05/15/24 02:00 Sputum - Expectorated Sputum Gram Stain - Final Constitutional: Present no acute distress, average body habitus, chronically ill appearing and cooperative Head: Present atraumatic and normocephalic ENT: Present normal exam Neck: Present normal inspection Respiratory: Present prolonged expiratory phase, rhonchi, wheezes, crackles (bilateral lower lung field posterior) and normal respiratory effort Cardiac: Present Reg Rate and Rhythm GI: Present soft and normal bowel sounds; Absent distention or tenderness Extremities: Present normal inspection and full ROM Skin: Present intact; Absent erythema Neuro: Present Grossly Intact, alert, awake, oriented x 3 and moves all extremities Additional Findings:: chest tender to palpation Assessment and Plan *Assessment and plan (1) Acute and chronic respiratory failure: Status: Acute Category: Medical Code(s): J96.20 - Acute and chronic respiratory failure, unspecified whether with hypoxia or hypercapnia (2) Acute exacerbation of chronic obstructive pulmonary disease: Status: Acute Category: Medical Code(s): J44.1 - Chronic obstructive pulmonary disease with (acute) exacerbation (3) Pneumonia: Status: Acute Category: Medical Code(s): J18.9 - Pneumonia, unspecified organism (4) Pulmonary emphysema: Status: Acute Category: Medical Code(s): J43.9 - Emphysema, unspecified (5) Acute respiratory failure with hypoxemia: Status: Acute Category: Medical Code(s): J96.01 - Acute respiratory failure with hypoxia (6) Abnormal findings on diagnostic imaging of heart and coronary circulation: Status: Acute Category: Medical Code(s): R93.1 - Abnormal findings on diagnostic imaging of heart and coronary circulation (7) Left to right cardiac shunt: Status: Acute Category: Medical (8) Sinus tachycardia: Status: Acute Category: Medical Code(s): R00.0 - Tachycardia, unspecified (9) Tobacco dependence: Status: Chronic Category: Medical Code(s): F17.200 - Nicotine dependence, unspecified, uncomplicated (10) Chest wall injury: Status: Acute Qualifiers: Encounter type: subsequent encounter Qualified Code(s): S29.9XXD - Unspecified injury of thorax, subsequent encounter Category: Medical Code(s): S29.9XXA - Unspecified injury of thorax, initial encounter (11) Foot fracture, right: Status: Acute Category: Medical Code(s): S92.901A - Unspecified fracture of right foot, initial encounter for closed fracture (12) Compression fracture of body of thoracic vertebra: Status: Acute Category: Medical Code(s): S22.000A - Wedge compression fracture of unspecified thoracic vertebra, initial encounter for closed fracture Plan 54-year-old female who presents with worsening shortness of breath, chest pain, concern for pneumonia. Discussed case with ER physician, request admission for treatment of respiratory failure, hypoxia, chest wall pain. Medicine agreed to admit for further management. Slight improvement this morning. Continues to be on oxygen. Continues to necessitate inpatient management. Awaiting culture results. Problems addressed as follows: Acute respiratory failure with hypoxia COPD exacerbation Pneumonia -Continue supplemental oxygen as needed for goal sats greater than 90%. Currently on 3 L. Wean as tolerated -DuoNebs every 6 hours scheduled -Continues to smoke, initiate nicotine patch daily as needed -Pulmonology consulted, appreciate their assistance in care; recommend initiating levofloxacin 750 mg daily. -White count remains mildly elevated at 11.8., neutrophil predominance. Repeat CBC, CMP, magnesium ordered for the morning. - Kidney function normal with BUN 10, creatinine 0.5 -Potassium 3.3, magnesium 2.3. -Discontinue steroids. Initiate Trelegy 100 inhaler Chest wall pain: Opiate use disorder -Resume Suboxone 8 mg / 2 mg twice daily. Will initiate oxycodone 10 mg as needed every 6 hours for severe breakthrough pain. Close monitoring for toxicity in the setting of high-dose opiates in conjunction with partial agonist use with buprenorphine. -Toradol 30 mg IV every 6 hours as needed -Cardiology consulted, echo with stable shunt. No effusions. Cardiac history of abnormal atrial shunt: Hypertension: - Consulted cardiology due to her history of cardiac issues. Question whether this [id number] shunt is worsening. Recent cardiac testing noted in patient's record - Continue Imdur 30 mg daily, carvedilol 3.125 mg twice daily Depression/anxiety: Continue Wellbutrin 100 mg twice daily Neuropathy: Continue gabapentin 300 mg 3 times a day Continue levothyroxine 137 mcg daily Ropinirole 0.5 mg nightly for restless leg Pantoprazole 40 mg nightly for GERD Lovenox 40 mg subcu daily Full code Regular diet
[2024-05-15] MEDS: ACETAMINOPHEN 325MG TAB 650 MG PO (16:46)
--- NOTE | 2024-05-15 17:22 | PC.NURSE ---
A&OX4. TOLERATING 2.5LNC AT THIS TIME, O2 SAT IN LOW 90S. PATIENT STATES SHE STAYS AROUND 88% AT HOME. WILL CONTINUE TO WEAN O2 TOLERATED. PATIENT HAS RESTED IN BED T/O SHIFT. HAS A NON-PRODUCTIVE BARKING COUGH, WHICH CAUSES SIGNIFICANT PAIN IN HER CHEST. PAIN TREATED WITH PRN MEDICATIONS PER MAR-EFFECTIVENESS NOTED. NEW NICOTINE PATCH IN PLACE. PATIENT HAS HAD NO OTHER NEEDS OR C/O THUS FAR, VSS.
[2024-05-15] MEDS: PANTOPRAZOLE 40MG TABLET 40 MG PO (20:04)
[2024-05-15] MEDS: MONTELUKAST SODIUM 10MG TAB 10 MG PO (20:04)
[2024-05-15] MEDS: TIZANIDINE 4MG TABLET 4 MG PO (20:04)
[2024-05-15] MEDS: LIDOCAINE 5% TRANSDERMAL PATCH 1 EACH TP (20:04)
[2024-05-16] VITALS (8 sets, daily range): BP systolic 96–128; BP diastolic 63–83; PULSE 63–82; RESP 16–19; TEMP 36.6–37.1; O2SAT 94–98; BMI 20.5
[2024-05-16] MEDS: KETOROLAC 30MG/ML VIAL 15 MG IV ×3 (01:44→20:57)
--- NOTE | 2024-05-16 04:28 | PC.NURSE ---
increased O2 from 2.5L NC to 3L NC r/t desatting to 85%. Now >90% on 3L NC.
[2024-05-16 05:14] LABS: HCV Ab Non Reactive (Non Reactive)
[2024-05-16] MEDS: FLUTICASONE/UMECLIDIN/VILANTER 100/62.5/25MCG INHALER 1 PUFF IH (06:06)
[2024-05-16] MEDS: LEVOTHYROXINE 137MCG (0.137MG) TAB 137 MCG PO (06:12)
[2024-05-16] MEDS: ACETAMINOPHEN 325MG TAB 650 MG PO (06:12)
--- NOTE | 2024-05-16 06:36 | PC.NURSE ---
c/o anterior chest/rib pain 2x t/o shift - tx per MAR. otherwise no acute changes.
[2024-05-16 07:08] LABS: Albumin Level 2.8 g/dl (3.5-5.0); Chloride 101 mmol/L (98-107); Potassium 3.9 mmoL/L (3.5-5.1); Sodium 133 mmol/L (136-145)
[2024-05-16 07:11] LABS: Alanine Aminotransferase 26 U/L (12-78); Alkaline Phosphatase 101 U/L (38-126); Anion Gap 4.9 mEq/L (5-15); Aspartate Amino Transferase 19 U/L (14-36); Bilirubin,Total 0.4 mg/dl (0.2-1.3); Blood Urea Nitrogen 12 mg/dl (7-17); Calcium 8.4 mg/dl (8.4-10.2); Carbon Dioxide 31 mmol/L (22.0-30.0); Creatinine Clearance Estimated 99 mL/min (50-200); Estimated Glomerular Filt Rate 104 ml/min (>60); GFR (African American) 126 ML/MIN (>60); Globulin 2.8 g/dL (1.3-3.2); Glucose 103 mg/dl (74-100); Magnesium 1.9 mg/dl (1.6-2.3); Total Protein,Serum 5.6 g/dl (6.3-8.2)
[2024-05-16 07:35] LABS: Basophils % 0.4 % (0.1-2.0); Eosinophils # 0.1 K/mm3 (0.0-0.4); Eosinophils % 0.7 % (0.1-12.0); Hematocrit 33.7 % (37.0-47.0); Hemoglobin 10.4 g/dL (12.2-16.2); Lymphocytes # 1.7 K/mm3 (0.7-4.5); Lymphocytes % 16.1 % (10-50); Mean Corpuscular HGB Conc 30.9 g/dL (31.8-35.4); Mean Corpuscular Hemoglobin 32.2 pg (27.0-31.2); Mean Corpuscular Volume 104.3 fl (81-99); Mean Platelet Volume 8.3 fl (7.4-10.4); Monocytes # 0.9 K/mm3 (0.1-1.0); Monocytes % 8.1 % (1.7-9.3); Neutrophils % 74.7 % (37.0-80.0); Platelet Count 369 K/mm3 (142-424); Red Blood Count 3.24 M/mm3 (4.20-5.40); White Blood Count 10.7 K/mm3 (4.8-10.8)
[2024-05-16] MEDS: ASPIRIN EC 81MG TABLET 81 MG PO (08:19)
[2024-05-16] MEDS: estradioL 1 MG TABLET PO (08:19)
[2024-05-16] MEDS: ISOSORBIDE MONO 30MG TAB.ER.24H 30 MG PO (08:19)
[2024-05-16] MEDS: buPROPion HCL 100 MG TABLET PO ×2 (08:19→20:59)
[2024-05-16] MEDS: CARVEDILOL 3.125MG TABLET 3.125 MG PO ×2 (08:20→20:59)
[2024-05-16] MEDS: POTASSIUM CHLORIDE 10MEQ CAPSULE.ER 10 MEQ PO ×2 (08:20→20:59)
[2024-05-16] MEDS: guaiFENesin 600 MG TAB.ER.12H PO ×2 (08:20→20:59)
[2024-05-16] MEDS: GABAPENTIN 300MG CAPSULE 300 MG PO ×3 (08:20→20:59)
[2024-05-16] MEDS: NICOTINE 14MG/24HRS PATCH 14 MG TD (08:21)
[2024-05-16] MEDS: BUPRENORPHINE/NALOXONE 8MG/2MG ODT 1 EACH SL ×2 (08:21→20:59)
[2024-05-16] MEDS: ENOXAPARIN 40MG/0.4ML SYRINGE 40 MG SQ (08:21)
[2024-05-16] MEDS: ONDANSETRON 4MG/2ML VIAL 4 MG IV (10:29)
[2024-05-16] MEDS: OXYCODONE 5MG IMMEDIATE RELEASE TABLET 10 MG PO ×2 (10:29→18:29)
[2024-05-16] MEDS: hydrOXYzine pamoate 25MG CAPSULE 25 MG PO (10:48)
[2024-05-16] MEDS: LEVOFLOXACIN/D5W 750 MG/150 ML 750 MG/150 ML PIGGYBACK 100 MG IV (13:10)
--- NOTE | 2024-05-16 17:13 | PC.NURSE ---
1700: Pt. c/o pain to right upper chest. had a lot of coughing today, that aggrevated the chest discomfort. Pt. medicated with oxycodone PO and Toradol IV for pain. Both medications helped the pain. Pt. on 3 liters of oxygen per NC. Pt, SOB taking oxygen off to ambulate to bathroom. Pt. was feeling bad this morning. Pt. had a nap this afternoon and felt better after nap. still coughing but less than this am. Possible discharge home tomorrow.
--- NOTE | 2024-05-16 17:50 | P.PN_ITS ---
Subjective *Date: 05/16/24 *Time: 17:50 Interval history: Continues to have chest pain. Stable on 3 L oxygen. Feels a popping in her chest with deep breathing. Increased productivity of her cough. No nausea or vomiting. Tolerating p.o. intake. Afebrile overnight. Medical Exam Vital signs and Labs for Last 24 Hours: Vital Signs Temp Pulse Pulse Resp BP Pulse Ox O2 Del Method 05/16/24 17:00 Nasal Cannula 05/16/24 16:00 70 05/16/24 16:00 78 05/16/24 15:59 97.8 F 78 19 124/66 96 Nasal Cannula 05/16/24 15:00 Nasal Cannula 05/16/24 13:00 Nasal Cannula 05/16/24 12:00 97.8 F 82 19 117/76 98 Nasal Cannula 05/16/24 12:00 70 05/16/24 11:00 Room Air 05/16/24 09:00 Nasal Cannula 05/16/24 08:00 Nasal Cannula 05/16/24 08:00 98.1 F 63 17 105/63 L 98 Nasal Cannula 05/16/24 08:00 80 05/16/24 06:30 Nasal Cannula 05/16/24 06:07 96 Nasal Cannula 05/16/24 04:30 Nasal Cannula 05/16/24 04:00 98.2 F 70 16 96/65 L 94 L Nasal Cannula 05/16/24 04:00 80 05/16/24 03:00 Nasal Cannula 05/16/24 00:59 Nasal Cannula 05/16/24 00:00 98.1 F 72 16 98/65 L 96 Nasal Cannula 05/16/24 00:00 80 05/15/24 23:00 Nasal Cannula 05/15/24 21:00 Nasal Cannula 05/15/24 20:17 92 L Nasal Cannula 05/15/24 20:00 80 05/15/24 20:00 98.0 F 78 18 106/65 L 95 Nasal Cannula 05/15/24 18:40 Nasal Cannula O2 Flow Rate 05/16/24 17:00 3 05/16/24 16:00 05/16/24 16:00 05/16/24 15:59 3 05/16/24 15:00 3 05/16/24 13:00 3 05/16/24 12:00 3 05/16/24 12:00 05/16/24 11:00 3 05/16/24 09:00 3 05/16/24 08:00 3 05/16/24 08:00 3 05/16/24 08:00 05/16/24 06:30 3 05/16/24 06:07 3 05/16/24 04:30 3 05/16/24 04:00 3 05/16/24 04:00 05/16/24 03:00 2.5 05/16/24 00:59 2.5 05/16/24 00:00 2.5 05/16/24 00:00 05/15/24 23:00 2.5 05/15/24 21:00 2.5 05/15/24 20:17 2.5 05/15/24 20:00 05/15/24 20:00 2.5 05/15/24 18:40 2.5 Intake and Output 05/16/24 05/16/24 05/16/24 07:59 15:59 23:59 Intake Total 240 / 960 720 / 960 Output Total 0 / 0 0 / 0 Balance 240 / 960 720 / 960 Intake: Intake, Oral Amount 240 / 960 720 / 960 Output: Output, Urine Amount 0 / 0 0 / 0 Other: Number of Voids 0 Number of Unmeasured Voids 1 Weight 59.33 kg Patient Weight 05/16/24 23:59 Weight 59.33 kg Laboratory Results - last 24 hr 05/14/24 20:52: Hepatitis C Antibody Non reactive 05/16/24 05:37: WBC 10.7, RBC 3.24 L, Hgb 10.4 L, Hct 33.7 L, MCV 104.3 H, MCH 32.2 H, MCHC 30.9 L, RDW 14.0, Plt Count 369, MPV 8.3, Neut % (Auto) 74.7, Lymph % (Auto) 16.1, [place] % (Auto) 8.1, Eos % (Auto) 0.7, Baso % (Auto) 0.4, Neut # (Auto) 8.0 H, Lymph # (Auto) 1.7, [place] # (Auto) 0.9, Eos # (Auto) 0.1, Baso # (Auto) 0.0, Sodium 133 L, Potassium 3.9, Chloride 101, Carbon Dioxide 31 H, Anion Gap 4.9 L, BUN 12, Creatinine 0.60, Estimated Creat Clear 99, Estimated GFR 104, Est GFR ( Amer) 126, Glucose 103 H D, Calcium 8.4, Magnesium 1.9 D, Total Bilirubin 0.4, AST 19 D, ALT 26 D, Alkaline Phosphatase 101, Total Protein 5.6 L, Albumin 2.8 L, Globulin 2.8, Albumin/Globulin Ratio 1.0 L I & O for Labs for Last 24 Hours: Intake & Output 05/13/24 05/14/24 05/15/24 05/16/24 23:59 23:59 23:59 23:59 Intake Total 1230 / 1470 960 / 960 Output Total 0 / 0 0 / 0 Balance 1230 / 1470 960 / 960 Weight 57.425 kg 56.9 kg 59.33 kg Microbiology Reports for the Last 24 Hours: Microbiology 05/15/24 02:00 Sputum - Expectorated Sputum Gram Stain - Final 05/15/24 02:00 Sputum - Expectorated Sputum Sputum Culture - Preliminary Gram Negative Rods Constitutional: Present no acute distress, average body habitus, chronically ill appearing and cooperative Head: Present atraumatic and normocephalic ENT: Present normal exam Neck: Present normal inspection Respiratory: Present prolonged expiratory phase, rhonchi, wheezes, crackles (bilateral lower lung field posterior) and normal respiratory effort Cardiac: Present Reg Rate and Rhythm GI: Present soft and normal bowel sounds; Absent distention or tenderness Extremities: Present normal inspection and full ROM Skin: Present intact; Absent erythema Neuro: Present Grossly Intact, alert, awake, oriented x 3 and moves all extremities Additional Findings:: chest tender to palpation Assessment and Plan *Assessment and plan (1) Acute and chronic respiratory failure: Status: Acute Category: Medical Code(s): J96.20 - Acute and chronic respiratory failure, unspecified whether with hypoxia or hypercapnia (2) Acute exacerbation of chronic obstructive pulmonary disease: Status: Acute Category: Medical Code(s): J44.1 - Chronic obstructive pulmonary disease with (acute) exacerbation (3) Pneumonia: Status: Acute Category: Medical Code(s): J18.9 - Pneumonia, unspecified organism (4) Pulmonary emphysema: Status: Acute Category: Medical Code(s): J43.9 - Emphysema, unspecified (5) Acute respiratory failure with hypoxemia: Status: Acute Category: Medical Code(s): J96.01 - Acute respiratory failure with hypoxia (6) Abnormal findings on diagnostic imaging of heart and coronary circulation: Status: Acute Category: Medical Code(s): R93.1 - Abnormal findings on diagnostic imaging of heart and coronary circulation (7) Left to right cardiac shunt: Status: Acute Category: Medical (8) Sinus tachycardia: Status: Acute Category: Medical Code(s): R00.0 - Tachycardia, unspecified (9) Tobacco dependence: Status: Chronic Category: Medical Code(s): F17.200 - Nicotine dependence, unspecified, uncomplicated (10) Chest wall injury: Status: Acute Qualifiers: Encounter type: subsequent encounter Qualified Code(s): S29.9XXD - Unspecified injury of thorax, subsequent encounter Category: Medical Code(s): S29.9XXA - Unspecified injury of thorax, initial encounter (11) Foot fracture, right: Status: Acute Category: Medical Code(s): S92.901A - Unspecified fracture of right foot, initial encounter for closed fracture (12) Compression fracture of body of thoracic vertebra: Status: Acute Category: Medical Code(s): S22.000A - Wedge compression fracture of unspecified thoracic vertebra, initial encounter for closed fracture Plan 54-year-old female who presents with worsening shortness of breath, chest pain, concern for pneumonia. Discussed case with ER physician, request admission for treatment of respiratory failure, hypoxia, chest wall pain. Medicine agreed to admit for further management. Slight improvement this morning. Continues to be on oxygen. Continues to necessitate inpatient management. Awaiting culture results. Problems addressed as follows: Acute respiratory failure with hypoxia COPD exacerbation Pneumonia -Continue supplemental oxygen as needed for goal sats greater than 90%. Currently on 3 L. Wean as tolerated -DuoNebs every 6 hours scheduled -Continues to smoke, initiate nicotine patch daily as needed - Fungal studies and histoplasma pending pulmonology's request. Continuing Levaquin 750 mg daily. - White count improved to 10.7. Cough more productive today. Repeat CBC, CMP, magnesium ordered for the morning. - Kidney function normal with BUN 12, creatinine 0.6 -Potassium 3.9, magnesium 1.9. - cont. Trelegy 100 inhaler Chest wall pain: Opiate use disorder -Resume Suboxone 8 mg / 2 mg twice daily. Sinew oxycodone 10 mg, increase to every 4 hours as needed for severe breakthrough pain. Close monitoring for toxicity in the setting of high-dose opiates in conjunction with partial agonist use with buprenorphine. -Toradol 30 mg IV every 6 hours as needed -Cardiology consulted, echo with stable shunt. No effusions. Cardiac history of abnormal atrial shunt: Hypertension: - Consulted cardiology due to her history of cardiac issues. Question whether this [id number] shunt is worsening. Recent cardiac testing noted in patient's record - Continue Imdur 30 mg daily, carvedilol 3.125 mg twice daily Depression/anxiety: Continue Wellbutrin 100 mg twice daily Neuropathy: Continue gabapentin 300 mg 3 times a day Continue levothyroxine 137 mcg daily Ropinirole 0.5 mg nightly for restless leg Pantoprazole 40 mg nightly for GERD Lovenox 40 mg subcu daily Full code Regular diet
[2024-05-16] MEDS: LIDOCAINE 5% TRANSDERMAL PATCH 1 EACH TP (20:56)
[2024-05-16] MEDS: ROPINIROLE 1MG TABLET 0.5 MG PO (20:58)
[2024-05-16] MEDS: MONTELUKAST SODIUM 10MG TAB 10 MG PO (20:59)
[2024-05-16] MEDS: PANTOPRAZOLE 40MG TABLET 40 MG PO (20:59)
[2024-05-16] MEDS: TIZANIDINE 4MG TABLET 4 MG PO (20:59)
[2024-05-17] VITALS: BP 103/60; PULSE 66; PULSE 75; RESP 22; TEMP 36.9; O2SAT 96
[2024-05-17] MEDS: OXYCODONE 5MG IMMEDIATE RELEASE TABLET 10 MG PO ×2 (01:36→09:45)
[2024-05-17 04:00] VITALS: BP 118/71; PULSE 74; PULSE 81; RESP 16; TEMP 36.9; O2SAT 95; BMI 19.6
[2024-05-17] MEDS: KETOROLAC 30MG/ML VIAL 15 MG IV (05:03)
[2024-05-17] MEDS: ONDANSETRON 4MG/2ML VIAL 4 MG IV (05:03)
[2024-05-17 06:31] LABS: Chloride 106 mmol/L (98-107)
[2024-05-17 06:32] LABS: Albumin Level 2.7 g/dl (3.5-5.0); Potassium 4.1 mmoL/L (3.5-5.1); Sodium 137 mmol/L (136-145)
[2024-05-17 06:34] LABS: Alanine Aminotransferase 22 U/L (12-78); Anion Gap 3.1 mEq/L (5-15); Aspartate Amino Transferase 19 U/L (14-36); Blood Urea Nitrogen 11 mg/dl (7-17); Carbon Dioxide 32 mmol/L (22.0-30.0); Creatinine Clearance Estimated 95 mL/min (50-200); Estimated Glomerular Filt Rate 104 ml/min (>60); GFR (African American) 126 ML/MIN (>60)
[2024-05-17 06:35] LABS: Albumin/Globulin Ratio 0.9 (1.1-1.8); Alkaline Phosphatase 88 U/L (38-126); Bilirubin,Total 0.3 mg/dl (0.2-1.3); Calcium 8.4 mg/dl (8.4-10.2); Globulin 2.9 g/dL (1.3-3.2); Glucose 108 mg/dl (74-100); Total Protein,Serum 5.6 g/dl (6.3-8.2)
[2024-05-17] MEDS: FLUTICASONE/UMECLIDIN/VILANTER 100/62.5/25MCG INHALER 1 PUFF IH (06:39)
[2024-05-17 06:46] LABS: Magnesium 1.7 mg/dl (1.6-2.3)
[2024-05-17 06:57] LABS: Basophils # 0.1 K/mm3 (0-0.2); Basophils % 1.9 % (0.1-2.0); Eosinophils # 0.2 K/mm3 (0.0-0.4); Eosinophils % 3.4 % (0.1-12.0); Hematocrit 34.9 % (37.0-47.0); Hemoglobin 10.8 g/dL (12.2-16.2); Lymphocytes # 1.2 K/mm3 (0.7-4.5); Lymphocytes % 24.9 % (10-50); Mean Corpuscular HGB Conc 30.8 g/dL (31.8-35.4); Mean Corpuscular Hemoglobin 31.4 pg (27.0-31.2); Mean Corpuscular Volume 101.8 fl (81-99); Mean Platelet Volume 8.1 fl (7.4-10.4); Monocytes # 0.6 K/mm3 (0.1-1.0); Monocytes % 12.6 % (1.7-9.3); Neutrophils # 2.8 K/mm3 (1.8-7.8); Neutrophils % 57.2 % (37.0-80.0); Platelet Count 397 K/mm3 (142-424); Red Blood Count 3.43 M/mm3 (4.20-5.40); White Blood Count 4.8 K/mm3 (4.8-10.8)
[2024-05-17] MEDS: LEVOTHYROXINE 137MCG (0.137MG) TAB 137 MCG PO (07:13)
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
[2024-05-17 07:45] VITALS: BP 108/64; PULSE 77; RESP 16; TEMP 36.8; O2SAT 95
[2024-05-17] MEDS: buPROPion HCL 100 MG TABLET PO (08:52)
[2024-05-17] MEDS: estradioL 1 MG TABLET PO (08:52)
[2024-05-17] MEDS: guaiFENesin 600 MG TAB.ER.12H PO (08:52)
[2024-05-17] MEDS: POTASSIUM CHLORIDE 10MEQ CAPSULE.ER 10 MEQ PO (08:52)
[2024-05-17] MEDS: ASPIRIN EC 81MG TABLET 81 MG PO (08:52)
[2024-05-17] MEDS: CARVEDILOL 3.125MG TABLET 3.125 MG PO (08:52)
[2024-05-17] MEDS: BUPRENORPHINE/NALOXONE 8MG/2MG ODT 1 EACH SL (08:52)
[2024-05-17] MEDS: ISOSORBIDE MONO 30MG TAB.ER.24H 30 MG PO (08:52)
[2024-05-17] MEDS: GABAPENTIN 300MG CAPSULE 300 MG PO (08:52)
[2024-05-17] MEDS: NICOTINE 14MG/24HRS PATCH 14 MG TD (08:53)
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
--- NOTE | 2024-05-17 10:17 | XR_ITS ---
FINAL REPORT CLINICAL HISTORY: Pneumonia COMPARISON: 04/16/2024 FINDINGS: A single portable view of the chest was obtained. The heart size and pulmonary vascularity are within normal limits. The mediastinum is within normal limits. There are worsening bibasilar opacities consistent with worsening atelectasis or pneumonia. The bony thorax is intact. IMPRESSION: Worsening bibasilar opacities consistent with worsening atelectasis or pneumonia. Reviewed, Interpreted and Dictated by Osvaldo Kolb III, MD Transcribed by Ingris Galdamez Authenticated and [facility]
[2024-05-17] MEDS: levoFLOXacin 750 MG TABLET PO (10:22)
--- OUTSIDE RECORDS SUMMARY | 2024-05-21 11:54 | XMS_ITS | Patient Health Record ---
Author Organization [facility] Billing Info Address [address] [place], [place] [id number] Care Team Providers Care Radiagraph Operator Name Role Phone [email or web address] Sequeira [facility] [phone] Reason For Referral No Information Plan Of Treatment No Information Insurance Providers Payer Name Payer Address Payer Phone Subscriber Number Group Number Insured Name Patient Relationship to Insured Coverage Start Date Coverage End Date [employer]ICA[employer] [place] [address] [place], [place] [id number] Erinn Nunez Self - patient is the insured [id number]
--- NOTE | 2024-05-21 11:57 | CARE MANAGER ---
Called and spoke with patient regarding recent discharge. Patient stated that she is doing well, has started new medication prescribed at discharge and was aware of scheduled f/u appts. No concerns voiced at time of call.
[2024-05-22 18:09] LABS: Aspergillus flavus Negative (Neg:<1:1); Aspergillus fumigatus Negative (Neg:<1:1); Aspergillus niger Negative (Neg:<1:1); Blastomyces Antibody Negative (Neg:<1:1)
[2024-05-24 17:14] LABS: Histoplasma Antibody Quant Positive (Neg:<1:1)
== END 2024-05-17 11:44 | disposition home or self-care (01) | DRG 193 ==
LOC: ER 22:25 → 2ND 05-15 05:36
PROVIDERS: Internal Medicine Pulmonary Disease; Nurse Practitioner Family; Admitting Provider Internal Medicine Adolescent Medicine; Emergency Provider Emergency Medicine; PCP Physician Assistant; Visit Provider Internal Medicine Adolescent Medicine
DX: J18.9 Pneumonia, unspecified organism (principal); J96.01 Acute respiratory failure with hypoxia; J44.1 Chronic obstructive pulmonary disease with (acute) exacerbation; Z99.81 Dependence on supplemental oxygen; R07.89 Other chest pain; F32.A Depression, unspecified; F41.9 Anxiety disorder, unspecified; G62.9 Polyneuropathy, unspecified; E03.9 Hypothyroidism, unspecified; G25.81 Restless legs syndrome; K21.9 Gastro-esophageal reflux disease without esophagitis; J43.9 Emphysema, unspecified; F17.210 Nicotine dependence, cigarettes, uncomplicated; I10 Essential (primary) hypertension; R06.02 Shortness of breath
CPT/HCPCS: 36415; 71045; 71275; 80050; 80053; 82803; 83735; 84436; 84443; 84479; 84484; 85007; 85025; 85610; 85730; 86606; 86612; 86698; 86803; 87070; 87077; 87186; 87205; 87265; 87389; 87486; 87581; 87632; 87635; 93005; 93306; 94640; 97162; 99285; J0574; J1200; J1650; J1885; J1956; J2270; J2405; J2919; J3475; J7620; Q9967

== ENCOUNTER 2024-06-06 12:15 | Inpatient (IN) | payer MEDICAID, SELFPAY ==
[2024-06-06 12:16] VITALS: BP 108/73; PULSE 98; RESP 16; TEMP 36.8; O2SAT 92; BMI 19.5
[2024-06-06 12:30] VITALS: BP 99/73; PULSE 94; O2SAT 90
--- NOTE | 2024-06-06 12:31 | XR_ITS ---
PROCEDURE INFORMATION: Exam: XR Chest Exam date and time: 06/06/2024 12:53 PM Age: 54 years old Clinical indication: Cough and shortness of breath; Additional info: Cough, shortness of breath TECHNIQUE: Imaging protocol: Radiologic exam of the chest. Views: 1 view. COMPARISON: CR XR CHEST PORTABLE 05/17/2024 10:23 AM FINDINGS: Lungs: There are bilateral patchy and consolidative opacities in lower lobes, more in the left side. Pleural spaces: Unremarkable. No pleural effusion. No pneumothorax. Heart/Mediastinum: Unremarkable. No cardiomegaly. Bones/joints: Unremarkable. IMPRESSION: There are bilateral patchy and consolidative opacities in lower lobes, more in the left side. Findings remain suspicious for multifocal pneumonia.
[2024-06-06 12:36] LABS: VBG Base Excess 9.8 mmol/L (-2.4-2.3); VBG HCO3 35.3 mmol/L (23-30); VBG Oxygen Saturation 64.1 % (50-70); VBG PH 7.36 mmol/L (7.31-7.41); VBG Total CO2 37.3 mmol/L (23-27)
--- NOTE | 2024-06-06 12:38 | PC.NURSE ---
aware of VBG results
[2024-06-06 12:39] LABS: Basophils # 0.1 K/mm3 (0-0.2); Basophils % 0.8 % (0.1-2.0); Eosinophils # 0.3 K/mm3 (0.0-0.4); Eosinophils % 2.6 % (0.1-12.0); Hematocrit 36.8 % (37.0-47.0); Hemoglobin 11.8 g/dL (12.2-16.2); Lymphocytes # 1.6 K/mm3 (0.7-4.5); Mean Corpuscular HGB Conc 32.1 g/dL (31.8-35.4); Mean Corpuscular Hemoglobin 32.2 pg (27.0-31.2); Mean Corpuscular Volume 100.1 fl (81-99); Mean Platelet Volume 8.2 fl (7.4-10.4); Monocytes # 0.9 K/mm3 (0.1-1.0); Monocytes % 8.2 % (1.7-9.3); Neutrophils # 8.3 K/mm3 (1.8-7.8); Neutrophils % 74.5 % (37.0-80.0); Platelet Count 311 K/mm3 (142-424); Red Blood Count 3.68 M/mm3 (4.20-5.40); Red Cell Distribution Width 13.5 % (11.5-17.5); White Blood Count 11.1 K/mm3 (4.8-10.8)
[2024-06-06 12:39] LABS: VBG PCO2 64.2 mmol/L (35-51)
[2024-06-06 12:44] LABS: Albumin Level 3.7 g/dl (3.5-5.0); Chloride 96 mmol/L (98-107); Potassium 3.3 mmoL/L (3.5-5.1); Sodium 137 mmol/L (136-145)
[2024-06-06 12:47] LABS: Alanine Aminotransferase 17 U/L (12-78); Albumin/Globulin Ratio 1.1 (1.1-1.8); Alkaline Phosphatase 131 U/L (38-126); Anion Gap 8.3 mEq/L (5-15); Aspartate Amino Transferase 27 U/L (14-36); Bilirubin,Total 0.6 mg/dl (0.2-1.3); Blood Urea Nitrogen 14 mg/dl (7-17); Calcium 8.4 mg/dl (8.4-10.2); Carbon Dioxide 36 mmol/L (22.0-30.0); Creatinine Clearance Estimated 71 mL/min (50-200); Estimated Glomerular Filt Rate 74 ml/min (>60); GFR (African American) 90 ML/MIN (>60); Globulin 3.5 g/dL (1.3-3.2); Glucose 129 mg/dl (74-100); Total Protein,Serum 7.2 g/dl (6.3-8.2)
--- NOTE | 2024-06-06 12:53 | PC.NURSE ---
Dr. Connor at bedside
--- NOTE | 2024-06-06 12:58 | PC.NURSE ---
XR AT BEDSIDE
--- NOTE | 2024-06-06 13:52 | HMH.EDGENADL ---
Discharge Plan Disposition Patient Disposition: Admitted Chief Complaint: PAIN Prescriptions Prescriptions: No Action (DME) BD Luer-Kaylin Syringe 3 mL 25 gauge x 1 syringe See Rx Instructions .ROUTE .MEDSUPPLY Qty: 1 Patient Comments: USE DIRECTED FOR B12 INJECTIONS Rx Instructions: As directed amitriptyline 25 mg tablet 25 mg PO HS buprenorphine-naloxone 8-2 mg tablet, sublingual 2 tab SUBLINGUAL DAILY tizanidine 4 mg tablet 4 mg PO Q8H formoterol fumarate 20 mcg/2 mL solution for nebulization 20 mcg inhalation BID budesonide 1 mg/2 mL suspension for nebulization 1 mg inhalation BID aspirin [Adult Low Dose Aspirin] 81 mg tablet,delayed release (DR/EC) 81 mg PO DAILY Qty: 30 5RF bupropion HCl 100 mg tablet sustained-release 12 hr 100 mg PO BID Qty: 180 0RF isosorbide mononitrate 30 mg tablet extended release 24 hr 30 mg PO DAILY Qty: 30 5RF levothyroxine 137 mcg tablet See Rx Instructions .ROUTE .COMPLEX Qty: 90 0RF Dose Instruction: TAKE ONE TABLET BY MOUTH EVERY DAY FOR THYROID Rx Instructions: TAKE ONE TABLET BY MOUTH EVERY DAY FOR THYROID latanoprost 0.005 % drops 1 drp Eye-Both HS gabapentin [Neurontin] 600 mg tablet 600 mg PO TID Patient Comments: TAKE 1 TABLET BY MOUTH THREE TIMES DAILY cyanocobalamin (vitamin B-12) 1,000 mcg/mL solution 1,000 mcg SQ MONTHLY Patient Comments: INJECT 1 ML SUBCUTANEOUSLY monthly FOR vitamin b12 deficiency fluticasone propionate 110 mcg/actuation HFA aerosol inhaler 1 puff INHALATION BID Yupelri 175 mcg/3 mL solution for nebulization 175 mcg inhalation DAILY estradiol [Estrace] 1 mg tablet 1 mg PO DAILY Rx Instructions: TAKE ONE TABLET BY MOUTH EVERY DAY furosemide 40 mg tablet 20 mg PO DAILY Patient Comments: TAKE 1/2 TABLET BY MOUTH EVERY DAY potassium chloride 10 mEq capsule, extended release 10 meq PO BID Patient Comments: TAKE ONE CAPSULE BY MOUTH TWICE DAILY carvedilol 3.125 mg tablet 3.125 mg PO BID Patient Comments: TAKE ONE TABLET BY MOUTH TWICE DAILY ropinirole 0.25 mg tablet 0.25 - 0.5 mg PO HS Patient Comments: TAKE 1 TO 2 TABLET(S) BY MOUTH AT least 1 TO 3 hour(s) BEFORE bedtime FOR restless LEGS omeprazole 20 mg capsule,delayed release(DR/EC) 20 mg PO DAILY Patient Comments: TAKE ONE CAPSULE BY MOUTH EVERY DAY FOR gerd montelukast 10 mg tablet 10 mg PO DAILY Patient Comments: TAKE ONE TABLET BY MOUTH EVERY DAY FOR allergies ergocalciferol (vitamin D2) 1,250 mcg (50,000 unit) capsule 1,250 mcg PO WEEKLY Patient Comments: TAKE ONE CAPSULE BY MOUTH ONCE A WEEK hydroxyzine pamoate 25 mg capsule 25 mg PO TID PRN (Reason: Itching) Patient Comments: TAKE ONE CAPSULE BY MOUTH THREE TIMES DAILY NEEDED FOR ITCHING cholecalciferol (vitamin D3) 25 mcg (1,000 unit) tablet 25 mcg PO DAILY Patient Comments: TAKE ONE TABLET BY MOUTH EVERY DAY calcium carbonate-vitamin D3 600 mg-10 mcg (400 unit) tablet 1 tab PO DAILY Patient Comments: TAKE ONE TABLET BY MOUTH EVERY DAY Slow Release Iron 142 mg (45 mg iron) tablet extended release 145 mg PO DAILY Patient Comments: TAKE ONE TABLET BY MOUTH EVERY DAY alendronate 70 mg tablet 70 mg PO WEEKLY albuterol sulfate 90 mcg/actuation Hfa Aerosol Inhaler 2 puff INHALATION Q4H PRN (Reason: Shortness Of Breath Or Wheezing) oxycodone 5 mg Tablet 10 mg PO Q6HP PRN (Reason: Severe Pain (7-10)) 3 Days Qty: 20 0RF Trelegy Ellipta 100-62.5-25 mcg Blister With Device 1 inh inhalation DAILY 30 Days Qty: 60 0RF lidocaine 5 % Adhesive Patch,Medicated 1 patch topical 2100 Qty: 0 0RF Rx Instructions: OTC levofloxacin 750 mg Tablet 750 mg PO 1100 4 Days Qty: 4 0RF Referrals Follow up/Referrals: Kiana Arenas PA [Primary Care Provider] - See instructions Clinical Impressions Clinical Impression: Acute exacerbation of chronic obstructive pulmonary disease, Acute hypoxemic respiratory failure, Multifocal pneumonia Print Language Print Language: Telugu Discharge ED Provider: Popeye Connor General Adult HPI General Chief complaint: PAIN Stated complaint: pain in back/side, pain when breathing Time Seen by Provider: 06/06/24 12:50 Mode of Arrival: Wheelchair Source of Information: Patient Limitations: No Limitations Description of Symptoms (Recalled from ER Triage Doc. by RN): Reports pain in her left rib cage when she takes a deep breath. History of Present Illness HPI narrative: Please note that above description of symptoms, in this electronic medical record under categorization of recalled from ER triage doctor by RN are reflective of an initial nursing assessment, however, is not reflective of my full history and physical exam that was personally taken and clarified. Consequentially, this preceding description of symptoms, which may include the patient's categorized chief complaint in the EMR, do not reflect my personal clinical impression, and the ultimate description of history of present illness and patient stated complaints should be deferred to this section of the note. Unless stated otherwise or congruent with this section of the note, additional signs, symptoms, or incongruence should be interpreted as inaccurate with my clinical impression. Related Data Home Medications ?Medication ?Instructions ?Recorded ?Confirmed buprenorphine 8 mg-naloxone 2 mg 2 tab sublingual DAILY 08/19/19 05/15/24 sublingual tablet tizanidine 4 mg tablet 4 mg PO Q8H Pain 10/06/21 05/15/24 budesonide 1 mg/2 mL suspension 1 mg inhalation BID 04/18/23 05/15/24 for nebulization formoterol fumarate 20 mcg/2 mL 20 mcg inhalation BID 04/18/23 05/15/24 solution for nebulization cyanocobalamin (vitamin B-12) 1,000 mcg SQ MONTHLY 12/03/23 05/15/24 1,000 mcg/mL injection solution fluticasone propionate 110 1 puff inhalation BID 12/03/23 05/15/24 mcg/actuation HFA aerosol inhaler gabapentin 600 mg tablet 600 mg PO TID 12/03/23 05/15/24 (Neurontin) latanoprost 0.005 % eye drops 1 drp Eye-Both HS 12/03/23 05/15/24 revefenacin 175 mcg/3 mL solution 175 mcg inhalation DAILY 12/03/23 05/15/24 for nebulization (Yupelri) syringe with needle 3 mL 25 gauge #1 ea 12/11/23 05/15/24 x 1 (BD Luer-Kaylin Syringe) amitriptyline 25 mg tablet 25 mg PO HS 12/27/23 05/15/24 estradiol 1 mg tablet (Estrace) 1 mg PO DAILY 01/23/24 05/15/24 albuterol sulfate 90 mcg/actuation 2 puff inhalation Q4H PRN 05/15/24 05/15/24 aerosol inhaler Shortness Of Breath Or Wheezing alendronate 70 mg tablet 70 mg PO WEEKLY 05/15/24 05/15/24 calcium 600 mg (as 1 tab PO DAILY 05/15/24 05/15/24 carbonate)-vitamin D3 10 mcg (400 unit) tablet carvedilol 3.125 mg tablet 3.125 mg PO BID 05/15/24 05/15/24 cholecalciferol (vitamin D3) 25 25 mcg PO DAILY 05/15/24 05/15/24 mcg (1,000 unit) tablet ergocalciferol (vitamin D2) 1,250 1,250 mcg PO WEEKLY 05/15/24 05/15/24 mcg (50,000 unit) capsule ferrous sulfate 142 mg (45 mg 145 mg PO DAILY 05/15/24 05/15/24 iron) tablet,extended release (Slow Release Iron) furosemide 40 mg tablet 20 mg PO DAILY 05/15/24 05/15/24 hydroxyzine pamoate 25 mg capsule 25 mg PO TID PRN Itching 05/15/24 05/15/24 montelukast 10 mg tablet 10 mg PO DAILY 05/15/24 05/15/24 omeprazole 20 mg capsule,delayed 20 mg PO DAILY 05/15/24 05/15/24 release potassium chloride 10 mEq 10 meq PO BID 05/15/24 05/15/24 capsule,extended release ropinirole 0.25 mg tablet 0.25 - 0.5 mg PO HS 05/15/24 05/15/24 Previous Rx's ?Medication ?Instructions ?Recorded aspirin 81 mg tablet,delayed 81 mg PO DAILY #30 tabs 01/29/24 release (Adult Low Dose Aspirin) bupropion HCl 100 mg tablet,12 hr 100 mg PO BID #180 ea 03/01/24 sustained-release isosorbide mononitrate 30 mg 30 mg PO DAILY #30 tabs 04/25/24 tablet,extended release 24 hr fluticasone fur. 100 mcg-umeclid 1 inh inhalation DAILY 30 days #60 05/17/24 62.5 mcg-vilant 25 mcg ea inhalat.powder (Trelegy Ellipta) levofloxacin 750 mg tablet 750 mg PO 1100 4 days #4 tabs 05/17/24 lidocaine 5 % topical patch 1 patch topical 2100 #0 ea 05/17/24 oxycodone 5 mg tablet 10 mg (2 x 5 mg) PO Q6HP PRN 05/17/24 Severe Pain (7-10) 3 days #20 tabs levothyroxine 137 mcg tablet See Rx Instructions .Route 05/28/24 .COMPLEX #90 tabs Allergies Allergy/AdvReac Type Severity Reaction Status Date / Time cefaclor [From CECLOR] Allergy Unknown CAUSES Verified 04/16/24 15:01 YEAST INFECTION Sulfa (Sulfonamide Allergy Unknown I-RASH Verified 04/16/24 15:01 Antibiotics) [SULFA (SULFONAMIDE ANTIBIOTICS)] sulfamethoxazole Allergy Unknown I-RASH Verified 04/16/24 15:01 [From BACTRIM] trimethoprim [From BACTRIM] Allergy Unknown I-RASH Verified 04/16/24 15:01 [facility] Disclaimer: The information contained in this section may have been updated after the patient was seen, as this information can be updated by other users. Medical History (Updated 06/06/24 @ 14:31 by Popeye Connor MD) Acute respiratory failure with hypoxemia Pulmonary emphysema Abnormal findings on diagnostic imaging of heart and coronary circulation Left to right cardiac shunt Interatrial cardiac shunt Dyspnea Chest pain in adult Hypoxia Cough Hypothyroidism (~03/22/18) Epigastric pain Anorexia Early satiety Unexplained weight loss Interstitial cystitis Allergic rhinitis GERD (gastroesophageal reflux disease) Low back pain Edema Vitamin D deficiency Hypertension COPD (chronic obstructive pulmonary disease) Surgical History H/O: hysterectomy Family History (Updated 05/14/24 @ 23:39 by Shayne Arevalo APRN) Mother Family history of acute congestive heart failure Sister Cancer Other Family history of hyperlipidemia Family history of hypertension Social History Smoking Status: Current every day smoker tobacco type: cigarettes packs per day: 1 alcohol intake: never substance use type: former substance user, opiates and painkillers current occupational status: unemployed and disabled Travel in the last 8 weeks: None household members: spouse and family housing: house caffeine: Yes Other Medical History Have you received the Flu Vaccine for this season: No Have you received the Pneumonia Vaccine: No ROS Obtained: Yes All systems reviewed & no additional complaints except as documented Physical Exam General General appearance: alert and in distress (Mild respiratory) Head Head exam: atraumatic and normocephalic Eye Eye exam: Present normal appearance, PERRL and EOMI Neck Neck exam: Present normal inspection, full ROM and trachea midline Respiratory Respiratory exam: Present wheezes; Absent respiratory distress, stridor, accessory muscle use or prolonged expiratory phase Cardiovascular Cardiovascular exam: Present regular rate, normal rhythm and other (Pulses equal symmetric in upper and lower extremities) Abdominal Exam Abdominal exam: Present soft; Absent distention, tenderness or pulsatile mass Extremities Exam Extremities exam: Absent edema Neurological Exam Neurological exam: Present alert, oriented X3 and CN II-XII intact; Absent motor sensory deficit Skin Skin exam: Present warm and dry; Absent diaphoresis or erythema Medical Decision Making Medical Records Medical records reviewed: Yes I reviewed the patient's medical records. Screening: Per USPSTF and CDC recommendations, given the prevalence of disease in our region, it is our hospital?s policy to screen for HIV and viral Hepatitis for all patients aged 18 and over and those with ongoing risk factors. Faisal Inquiry Pt receiving controlled substance: No Faisal was queried for this patient: No Vital Signs: 06/06/24 12:16 06/06/24 12:30 Temperature 98.3 F Temperature Source Oral Pulse Rate 94 H Pulse Rate [Radial] 98 H Respiratory Rate 16 Blood Pressure 99/73 L Blood Pressure [Right Arm] 108/73 L Blood Pressure Mean [Right Arm] 84 Blood Pressure Source [Right Arm] Automatic Cuff Blood Pressure Position [Right Arm] Sitting 02 Sat by Pulse Oximetry 92 L 90 L Oxygen Delivery Method Room Air Room Air Lab Data Lab Results 06/06/24 12:27: WBC 11.1 H, RBC 3.68 L, Hgb 11.8 L, Hct 36.8 L, MCV 100.1 H, MCH 32.2 H, MCHC 32.1, RDW 13.5, Plt Count 311, MPV 8.2, Neut % (Auto) 74.5, Lymph % (Auto) 14.0, [place] % (Auto) 8.2, Eos % (Auto) 2.6, Baso % (Auto) 0.8, Neut # (Auto) 8.3 H, Lymph # (Auto) 1.6, [place] # (Auto) 0.9, Eos # (Auto) 0.3, Baso # (Auto) 0.1, Sodium 137, Potassium 3.3 L, Chloride 96 L, Carbon Dioxide 36 H, Anion Gap 8.3, BUN 14, Creatinine 0.80, Estimated Creat Clear 71, Estimated GFR 74, Est GFR ( Amer) 90, Glucose 129 H, Calcium 8.4, Total Bilirubin 0.6, AST 27, ALT 17, Alkaline Phosphatase 131 H, Total Protein 7.2 D, Albumin 3.7, Globulin 3.5 H, Albumin/Globulin Ratio 1.1 06/06/24 12:31: VBG pH 7.36, VBG pCO2 64.2 H, VBG pO2 31.0, VBG HCO3 35.3 H, VBG Total CO2 37.3 H, VBG O2 Saturation 64.1, VBG Base Excess 9.8 H, VBG Lactic Acid 2.0 06/06/24 12:27 06/06/24 12:27 Orders (Tests/Meds): ED MEDICATIONS Generic Name Dose Route Start Last Admin Trade Name Freq PRN Reason Stop Dose Admin Acetaminophen 650 mg 06/06/24 14:16 Acetaminophen 325mg Tab PO 07/06/24 14:15 Q4HP PRN Fever or Mild Pain (1-3) Albuterol/Ipratropium 9 ml 06/06/24 14:22 Ipratropium/Albuterol 3 Ml Neb IH 06/06/24 14:23 ONCE ONE Enoxaparin Sodium 40 mg 06/07/24 09:00 Enoxaparin 40mg/0.4ml Syringe SUBCUT 07/07/24 08:59 DAILY [facility] Lactated Ringer's 1,000 mls @ 75 mls/hr 06/06/24 14:30 Lactated Ringer's 1000 Ml Bag IV 07/06/24 14:29 .[id number] [facility] Insulin Human Lispro 0 unit 06/06/24 14:30 Humalog 100 Units/Ml 10ml Vial (Ssi) SUBCUT 07/06/24 14:29 ACHS [facility] Protocol Methylprednisolone Sodium Succinate 125 mg 06/06/24 14:22 Methylprednisolone Sod Succ 125mg Vial IV 06/06/24 14:23 ONCE ONE Ondansetron HCl 4 mg 06/06/24 14:16 Ondansetron 4mg/2ml Vial IV 07/06/24 14:15 Q8HP PRN Nausea Sodium Chloride 10 ml 06/06/24 12:32 Sodium Chloride 0.9% 10ml Flush Syringe IV 07/06/24 12:31 NEEDED PRN Maintain IV Site Discontinued Medications Generic Name Dose Route Start Last Admin Trade Name Britany PRN Reason Stop Dose Admin Azithromycin 500 mg 06/06/24 13:58 Azithromycin 250mg Tablet PO 06/06/24 13:59 ONCE ONE Cefepime HCl 2 gm/ Sodium 100 mls @ 200 mls/hr 06/06/24 13:52 06/06/24 14:01 Chloride IV 06/06/24 14:21 200 mls/hr ONCE ONE Administration ORDERS Category Date Time Status XR chest portable Stat Exams 06/06/24 12:31 Completed Complete Blood Count Auto Diff [facility] Lab 06/07/24 06:00 Ordered Complete Blood Count Auto Diff [facility] Lab 06/08/24 06:00 Ordered Complete Blood Count Auto Diff [facility] Lab 06/09/24 06:00 Ordered Complete Blood Count Auto Diff AMLAB Lab 06/10/24 06:00 Ordered Complete Blood Count Auto Diff AMLAB Lab 06/11/24 06:00 Ordered Complete Blood Count Auto Diff Stat Lab 06/06/24 12:27 Completed Comprehensive Metabolic Panel [facility] Lab 06/07/24 06:00 Ordered Comprehensive Metabolic Panel [facility] Lab 06/08/24 06:00 Ordered Comprehensive Metabolic Panel [facility] Lab 06/09/24 06:00 Ordered Comprehensive Metabolic Panel [facility] Lab 06/10/24 06:00 Ordered Comprehensive Metabolic Panel [facility] Lab 06/11/24 06:00 Ordered Comprehensive Metabolic Panel Stat Lab 06/06/24 12:27 Completed HIV (1&2) Antibody Rapid Stat Lab 06/06/24 12:27 Received Hep C Ab with Reflex to RNA Stat Lab 06/06/24 12:27 Received Magnesium AMLAB Lab 06/07/24 06:00 Ordered Blood Culture Stat Micro 06/06/24 14:10 Received VBG [Venous Blood Gas] Stat RT 06/06/24 12:31 Completed Medical Decision Narrative: 54-year-old female history of hypertension, hyperlipidemia, COPD on intermittent oxygen at home, tobacco use presenting with concern for shortness of breath. Patient states that she has been feeling tired the last couple of days, started feeling short of breath this morning, 06/06. Cough is now productive of yellow sputum, she usually has nonproductive cough. She also producing significant mount of sputum.. Subjective fevers and chills without objective measurements. Generalized weakness. History was obtained via conversation with patient. On arrival, patient hemodynamically stable, alert, oriented x4, appropriate, GCS 15, moving all extremities spontaneously, pupils equal and reactive to light. Full physical exam performed and significant for uncomfortable appearing female in mild respiratory distress. States that she is having pain in her left posterior chest wall made better with applying pressure. Intermittently coughing and not producing any sputum. Lungs are diffusely wheezy, but she does have decreased breath sounds with coarse lung sounds in her left lung base as well as right middle lobe lung [place]. Desaturating around 80% on room air, this is abnormal patient is not on oxygen at home. Differential includes COPD exacerbation, pneumonia, sepsis, acute respiratory failure, among others. Patient placed on continuous cardiac monitoring and continuous pulse ox with initial blood pressure 108/73, heart rate 98, saturation 90% on 3 L nasal cannula. Patient was given fluids, cefepime and azithromycin, Solu-Medrol and DuoNebs for symptomatic management and correction of underlying abnormalities. Workup independently interpreted and significant for leukocytosis. VBG with what appears to be chronic respiratory acidosis with metabolic compensation. pH 7.36, CO2 high at 64, bicarb high at 35, normal lactate. Chemistry with mild hypokalemia, normal kidney function. On independent interpretation of imaging, multifocal Monia without pleural effusion. See radiology read for full review of final results. On reevaluation, patient feeling a little better after nebs, but Toradol ordered for chest wall pain. Hospital medicine contacted and case was discussed at length, to be admitted for acute hypoxemic respiratory failure in the setting of COPD and multifocal pneumonia. Because patient high risk for clinical decompensation, deemed appropriate for inpatient admission. Results were relayed to patient who voiced understanding and patient was agreeable to inpatient admission and management. Patient was admitted to the hospital for further definitive management. 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 Electronic employment coordinator of the spoken language may permit errors. Although I have reviewed the note, some errors may still exist. Critical Care Critical Care Time Critical Care Time: Yes (resp, ID) Attestation: On 06/06/24, the high probability of a clinically significant, sudden or life threatening deterioration of the following system(s) required my full and direct attention, intervention and personal management. The time I documented below is in addition to time spent performing reported procedures but includes the following listed in this critical care notation. Total Time Total Critical Care Time: 35
[2024-06-06] MEDS: CEFEPIME HCL 2 GM in 0.9 % SODIUM CHLORIDE 100 ML IV (14:01)
[2024-06-06] MEDS: KETOROLAC 30MG/ML VIAL 15 MG IV (14:38)
[2024-06-06] MEDS: IPRATROPIUM/ALBUTEROL 3 ML NEB 9 ML IH (14:38)
[2024-06-06] MEDS: METHYLPREDNISOLONE SOD SUCC 125MG VIAL 125 MG IV (14:38)
[2024-06-06] MEDS: AZITHROMYCIN 250MG TABLET 500 MG PO (14:38)
--- NOTE | 2024-06-06 14:40 | PC.NURSE ---
PRODUCT MARKETER NOTIFIED OF ADMISSION
[2024-06-06 15:00] LABS: HIV (1&2) Antibody Rapid NONREACTIVE (NONREACTIVE)
--- NOTE | 2024-06-06 15:10 | PC.NURSE ---
Report called to LYUBOV Schneider on Med Surg.
[2024-06-06 15:14] VITALS: BP 106/72; PULSE 95; RESP 20; TEMP 36.8; O2SAT 96
[2024-06-06 15:27] VITALS: BP 114/62; PULSE 98; RESP 20; TEMP 36.9; O2SAT 92; BMI 17.9
[2024-06-06] MEDS: LACTATED RINGERS 1000ML 1,000 ML 75 ML IV (15:57)
[2024-06-06] MEDS: ACETAMINOPHEN 325MG TAB 650 MG PO (16:12)
--- NOTE | 2024-06-06 17:08 | PC.NURSE ---
Pt is alert and oriented x4. She is currently on 3L NC w/O2 sat measuring in the low 90's. She is diminished throughout with scattered wheezes and rhonchi. She reports pain in left and right ribs on inspiration, left greater than right. She ambulates to the bathroom with assist x1. She currently denies any requests or complaints at this time. Bed is locked and in the lowest position, call light is within reach.
--- NOTE | 2024-06-06 17:22 | EXP.HP ---
History of Present Illness *Admission Date: 06/06/24 *Reason for visit:: Shortness of breath, cough *History of present illness: Erinn Nunez is a 54-year-old female with a medical history significant for COPD (on 2 L at night), tobacco use disorder, opioid use disorder on Suboxone, hypothyroidism, hypertension, anxiety/depression, restless legs, GERD who presents with worsening shortness of breath, yellow productive cough. She states has been ongoing for a few days, denies fever/chills, abdominal pain, urinary symptoms, constipation/diarrhea. Has been adherent to her medications but continues to smoke. In the ED, patient was desaturating to 80% on room air. Workup in the ED significant for WBC 11.1, relatively normal VBG with chronic hypercapnia. CXR shows multifocal pneumonia at the bases of both lungs. Case was discussed with ED provider and decision was made to admit patient for acute on chronic hypoxic respiratory failure in the setting of community-acquired pneumonia. [facility] Disclaimer: The information contained in this section may have been updated after the patient was seen, as this information can be updated by other users. Medical History (Updated 06/06/24 @ 17:45 by Mandeep Addison MD) Acute respiratory failure with hypoxemia Pulmonary emphysema Abnormal findings on diagnostic imaging of heart and coronary circulation Left to right cardiac shunt Interatrial cardiac shunt Dyspnea Chest pain in adult Hypoxia Cough Hypothyroidism (~03/22/18) Epigastric pain Anorexia Early satiety Unexplained weight loss Interstitial cystitis Allergic rhinitis GERD (gastroesophageal reflux disease) Low back pain Edema Vitamin D deficiency Hypertension COPD (chronic obstructive pulmonary disease) Surgical History H/O: hysterectomy Family History Mother Family history of acute congestive heart failure Sister Cancer Other Family history of hyperlipidemia Family history of hypertension Social History (Updated 06/06/24 @ 15:08 by Jennie Shrestha, [email or web address]) Smoking Status: Current every day smoker tobacco type: cigarettes packs per day: 1 alcohol intake: never substance use type: former substance user, opiates and painkillers current occupational status: unemployed and disabled Travel in the last 8 weeks: None household members: spouse and family housing: house caffeine: Yes Other Medical History Have you received the Flu Vaccine for this season: No Have you received the Pneumonia Vaccine: Yes Meds Home Medications and Allergies Home Medications ?Medication ?Instructions ?Recorded ?Confirmed ?Type buprenorphine 8 mg-naloxone 2 mg 2 tab sublingual DAILY 08/19/19 06/06/24 History sublingual tablet tizanidine 4 mg tablet 4 mg PO TID muscle spasms 10/06/21 06/06/24 History cyanocobalamin (vitamin B-12) 1,000 mcg SQ MONTHLY 12/03/23 06/06/24 History 1,000 mcg/mL injection solution gabapentin 600 mg tablet 600 mg PO TID 12/03/23 06/06/24 History (Neurontin) latanoprost 0.005 % eye drops 1 drp Eye-Both HS 12/03/23 06/06/24 History syringe with needle 3 mL 25 gauge #1 ea 12/11/23 06/06/24 History x 1 (BD Luer-Kaylin Syringe) amitriptyline 25 mg tablet 25 mg PO HS 12/27/23 06/06/24 History estradiol 1 mg tablet (Estrace) 1 mg PO DAILY 01/23/24 06/06/24 History aspirin 81 mg tablet,delayed 81 mg PO DAILY #30 tabs 01/29/24 06/06/24 Rx release (Adult Low Dose Aspirin) bupropion HCl 100 mg tablet,12 hr 100 mg PO BID #180 ea 03/01/24 06/06/24 Rx sustained-release isosorbide mononitrate 30 mg 30 mg PO DAILY #30 tabs 04/25/24 06/06/24 Rx tablet,extended release 24 hr albuterol sulfate 90 mcg/actuation 2 puff inhalation Q4H PRN 05/15/24 06/06/24 History aerosol inhaler Shortness Of Breath Or Wheezing alendronate 70 mg tablet 70 mg PO WEEKLY 05/15/24 06/06/24 History calcium 600 mg (as 1 tab PO DAILY 05/15/24 06/06/24 History carbonate)-vitamin D3 10 mcg (400 unit) tablet carvedilol 3.125 mg tablet 3.125 mg PO BID 05/15/24 06/06/24 History cholecalciferol (vitamin D3) 25 25 mcg PO DAILY 05/15/24 06/06/24 History mcg (1,000 unit) tablet ergocalciferol (vitamin D2) 1,250 1,250 mcg PO WEEKLY 05/15/24 06/06/24 History mcg (50,000 unit) capsule furosemide 40 mg tablet 20 mg PO DAILY 05/15/24 06/06/24 History hydroxyzine pamoate 25 mg capsule 25 mg PO TID PRN Itching 05/15/24 06/06/24 History montelukast 10 mg tablet 10 mg PO PM 05/15/24 06/06/24 History omeprazole 20 mg capsule,delayed 20 mg PO DAILY 05/15/24 06/06/24 History release potassium chloride 10 mEq 10 meq PO BID 05/15/24 06/06/24 History capsule,extended release ropinirole 0.25 mg tablet 0.25 - 0.5 mg PO HS 05/15/24 06/06/24 History fluticasone fur. 100 mcg-umeclid 1 inh inhalation DAILY 30 days #60 05/17/24 06/06/24 Rx 62.5 mcg-vilant 25 mcg ea inhalat.powder (Trelegy Ellipta) lidocaine 5 % topical patch 1 patch topical 2100 #0 ea 05/17/24 06/06/24 Rx levothyroxine 137 mcg tablet 137 mcg PO DAILY 06/06/24 06/06/24 History New Prescriptions to Start Prescriptions: Allergies Allergy/AdvReac Type Severity Reaction Status Date / Time cefaclor [From CECLOR] Allergy Unknown CAUSES Verified 04/16/24 15:01 YEAST INFECTION Sulfa (Sulfonamide Allergy Unknown I-RASH Verified 04/16/24 15:01 Antibiotics) [SULFA (SULFONAMIDE ANTIBIOTICS)] sulfamethoxazole Allergy Unknown I-RASH Verified 04/16/24 15:01 [From BACTRIM] trimethoprim [From BACTRIM] Allergy Unknown I-RASH Verified 04/16/24 15:01 Exam Data for Last 24 hours Vital signs and Labs for Last 24 Hours: Temp Pulse Resp BP Pulse Ox O2 Del Method O2 Flow Rate 98.4 F 98 H 20 114/62 92 L Nasal Cannula 3 06/06/24 15:27 06/06/24 15:27 06/06/24 15:27 06/06/24 15:27 06/06/24 15:27 06/06/24 16:35 06/06/24 16:35 Laboratory Results - last 24 hr 06/06/24 12:27: WBC 11.1 H, RBC 3.68 L, Hgb 11.8 L, Hct 36.8 L, MCV 100.1 H, MCH 32.2 H, MCHC 32.1, RDW 13.5, Plt Count 311, MPV 8.2, Neut % (Auto) 74.5, Lymph % (Auto) 14.0, [place] % (Auto) 8.2, Eos % (Auto) 2.6, Baso % (Auto) 0.8, Neut # (Auto) 8.3 H, Lymph # (Auto) 1.6, [place] # (Auto) 0.9, Eos # (Auto) 0.3, Baso # (Auto) 0.1, Sodium 137, Potassium 3.3 L, Chloride 96 L, Carbon Dioxide 36 H, Anion Gap 8.3, BUN 14, Creatinine 0.80, Estimated Creat Clear 71, Estimated GFR 74, Est GFR ( Amer) 90, Glucose 129 H, Calcium 8.4, Total Bilirubin 0.6, AST 27, ALT 17, Alkaline Phosphatase 131 H, Total Protein 7.2 D, Albumin 3.7, Globulin 3.5 H, Albumin/Globulin Ratio 1.1, HIV 1&2 Antibody Rapid Nonreactive 06/06/24 12:31: VBG pH 7.36, VBG pCO2 64.2 H, VBG pO2 31.0, VBG HCO3 35.3 H, VBG Total CO2 37.3 H, VBG O2 Saturation 64.1, VBG Base Excess 9.8 H, VBG Lactic Acid 2.0 I & O for Last 24 hours: Intake & Output 06/03/24 06/04/24 06/05/24 06/06/24 23:59 23:59 23:59 23:59 Output Total 0 / 0 Balance 0 / 0 Weight 51.755 kg Constitutional Constitutional: no acute distress *Routine HEENT Exam Head: Present normocephalic Eye: Present EOMI and PERRL ENT: Present mucous membranes moist *Routine Neck Exam Neck: Present supple; Absent lymphadenopathy *Routine Respiratory Exam Respiratory: Present wheezes; Absent CTA bilaterally *Routine Cardiovascular Exam Cardiovascular: Present RRR *Routine Abdominal Exam Abdominal: Present soft and normoactive bowel sounds; Absent tenderness *Routine Rectal Exam Rectal:: deferred *Routine Genitalia Exam Genitalia:: deferred *Routine Extremities Exam Extremities: Absent cyanosis, clubbing or edema *Routine Skin Exam Skin: Present warm; Absent rash *Routine Neurological Exam Neurological: Present alert and oriented X3 Assessment and Plan *Assessment and plan (1) Multifocal pneumonia: Status: Acute Category: Medical Code(s): J18.9 - Pneumonia, unspecified organism (2) Acute hypoxemic respiratory failure: Status: Acute Category: Medical Code(s): J96.01 - Acute respiratory failure with hypoxia (3) Sepsis: Status: Acute Category: Medical Code(s): A41.9 - Sepsis, unspecified organism Plan Erinn Nunez is a 54-year-old female with a medical history significant for COPD (on 2 L at night), tobacco use disorder, opioid use disorder on Suboxone, hypothyroidism, hypertension, anxiety/depression, restless legs, GERD who presents with worsening shortness of breath, yellow productive cough. She states has been ongoing for a few days, denies fever/chills, abdominal pain, urinary symptoms, constipation/diarrhea. Has been adherent to her medications but continues to smoke. In the ED, patient was desaturating to 80% on room air. Workup in the ED significant for WBC 11.1, relatively normal VBG with chronic hypercapnia. CXR shows multifocal pneumonia at the bases of both lungs. Case was discussed with ED provider and decision was made to admit patient for acute on chronic hypoxic respiratory failure in the setting of community-acquired pneumonia. #Acute on chronic hypoxic respiratory failure #Community-acquired pneumonia #Sepsis ? Meet SIRS criteria with leukocytosis, tachypnea, tachycardia. ? WBC 11.1 on admission. CXR suggestive of multifocal pneumonia. ? Ordered 2 L sepsis bolus. Tolerating p.o. intake. ? Currently requiring 3 L nasal cannula. ? Ceftriaxone, azithromycin day 1/5. ? Follow-up sputum, blood cultures. #Acute COPD exacerbation ? Increased moderate wheezing on bilateral lung hamilton, increased cough with yellow sputum. ? DuoNebs scheduled and as needed. ? Resume home Trelegy. ? Prednisone 40 mg day 2/5 starting tomorrow. Solu-Medrol 125 mg given in the ED. Chronic medical problems: #Tobacco use disorder #Opioid use disorder #Hypothyroidism #Hypertension #Anxiety/depression #Restless legs #GERD ? Resumed home amitriptyline, carvedilol, gabapentin, levothyroxine, pantoprazole, Requip, Wellbutrin. Full code DVT prophylaxis: Lovenox Regular diet
[2024-06-06] MEDS: MONTELUKAST SODIUM 10MG TAB 10 MG PO (18:25)
[2024-06-06] MEDS: SODIUM CHLORIDE 3% 15ML NEB 3 ML IH (18:51)
[2024-06-06] MEDS: IPRATROPIUM/ALBUTEROL 3 ML NEB IH (18:51)
[2024-06-06 18:53] VITALS: PULSE 82; PULSE 86; RESP 18; O2SAT 94
[2024-06-06 20:00] VITALS: BP 107/69; PULSE 84; RESP 16; TEMP 36.8; O2SAT 93
[2024-06-06] MEDS: CARVEDILOL 3.125MG TABLET 3.125 MG PO (20:24)
[2024-06-06] MEDS: POTASSIUM CHLORIDE 10MEQ CAPSULE.ER 10 MEQ PO (20:24)
[2024-06-06] MEDS: AMITRIPTYLINE 25MG TABLET 25 MG PO (20:24)
[2024-06-06] MEDS: PANTOPRAZOLE 40MG TABLET 40 MG PO (20:24)
[2024-06-06] MEDS: GABAPENTIN 600MG TABLET 600 MG PO (20:24)
[2024-06-07] VITALS (7 sets, daily range): BP systolic 90–113; BP diastolic 48–66; PULSE 65–94; RESP 16–18; TEMP 36.4–36.7; O2SAT 94–96; BMI 17.9
[2024-06-07] MEDS: IPRATROPIUM/ALBUTEROL 3 ML NEB IH ×3 (00:45→18:39)
[2024-06-07] MEDS: ACETAMINOPHEN 325MG TAB 650 MG PO ×3 (02:52→20:21)
--- NOTE | 2024-06-07 03:46 | PC.NURSE ---
Patient's care was handed over to me from Michelle Mina RN at around 23:00 this shift. She is alert and oriented x4. Patient was observed to have eyes closed, respirations even and unlabored on 3 L of oxygen via nasal cannula, and no apparent distress throughout the night (since taking over her care). Patient was given Tylenol once from me this shift per complaints of pain in her ribs that would increase whenever [she] would cough. After receiving the pain medication, she was able to go back to resting. Her scheduled medications were given to her per OCT; she has also been getting scheduled duonebs. Patient was noticed to have a loose, nonproductive cough; a sputum sample has not been collected thus far. At this time, the patient does not have any complaints. She is currently resting supine in bed. Her vital signs have been stable with soft blood pressures this shift. No acute changes noted thus far. Call light within reach.
[2024-06-07 07:40] LABS: Basophils % 0.2 % (0.1-2.0); Eosinophils % 0.1 % (0.1-12.0); Hematocrit 34.2 % (37.0-47.0); Lymphocytes # 0.7 K/mm3 (0.7-4.5); Lymphocytes % 11.3 % (10-50); Mean Corpuscular Hemoglobin 31.6 pg (27.0-31.2); Mean Corpuscular Volume 101.8 fl (81-99); Mean Platelet Volume 8.2 fl (7.4-10.4); Monocytes # 0.4 K/mm3 (0.1-1.0); Monocytes % 5.6 % (1.7-9.3); Neutrophils # 5.5 K/mm3 (1.8-7.8); Neutrophils % 82.9 % (37.0-80.0); Platelet Count 338 K/mm3 (142-424); Red Blood Count 3.36 M/mm3 (4.20-5.40); Red Cell Distribution Width 13.6 % (11.5-17.5); White Blood Count 6.6 K/mm3 (4.8-10.8)
[2024-06-07 07:54] LABS: Alanine Aminotransferase 15 U/L (12-78); Alkaline Phosphatase 111 U/L (38-126); Anion Gap 5.2 mEq/L (5-15); Aspartate Amino Transferase 20 U/L (14-36); Bilirubin,Total 0.5 mg/dl (0.2-1.3); Blood Urea Nitrogen 9 mg/dl (7-17); Calcium 8.5 mg/dl (8.4-10.2); Carbon Dioxide 34 mmol/L (22.0-30.0); Chloride 101 mmol/L (98-107); Creatinine Clearance Estimated 104 mL/min (50-200); Estimated Glomerular Filt Rate 128 ml/min (>60); GFR (African American) 155 ML/MIN (>60); Globulin 3.1 g/dL (1.3-3.2); Glucose 132 mg/dl (74-100); Magnesium 1.7 mg/dl (1.6-2.3); Potassium 3.2 mmoL/L (3.5-5.1); Sodium 137 mmol/L (136-145); Total Protein,Serum 6.1 g/dl (6.3-8.2)
[2024-06-07 08:20] LABS: Hemoglobin 10.6 g/dL (12.2-16.2)
[2024-06-07] MEDS: predniSONE 20MG TAB 40 MG PO (08:44)
[2024-06-07] MEDS: AZITHROMYCIN 250MG TABLET 250 MG PO (08:44)
[2024-06-07] MEDS: POTASSIUM CHLORIDE 10MEQ CAPSULE.ER 10 MEQ PO ×2 (08:44→20:22)
[2024-06-07] MEDS: LEVOTHYROXINE 137MCG (0.137MG) TAB 137 MCG PO (08:45)
[2024-06-07] MEDS: buPROPion HCL 100 MG TABLET PO ×2 (08:45→20:21)
[2024-06-07] MEDS: ASPIRIN EC 81MG TABLET 81 MG PO (08:45)
[2024-06-07] MEDS: BUPRENORPHINE/NALOXONE 8MG/2MG ODT 2 EACH SL (08:45)
[2024-06-07] MEDS: CARVEDILOL 3.125MG TABLET 3.125 MG PO ×2 (08:45→20:22)
[2024-06-07] MEDS: GABAPENTIN 600MG TABLET 600 MG PO ×3 (08:45→20:22)
[2024-06-07] MEDS: CEFTRIAXONE 1 GM 1 GM in 0.9 % SODIUM CHLORIDE 50 ML IV (08:46)
[2024-06-07 09:15] LABS: HCV Ab Non Reactive (Non Reactive)
[2024-06-07] MEDS: ENOXAPARIN 40MG/0.4ML SYRINGE 40 MG SUBCUT (10:03)
--- NOTE | 2024-06-07 10:35 | PC.NURSE ---
pt refused cre screen
[2024-06-07] MEDS: FLUTICASONE/UMECLIDIN/VILANTER 100/62.5/25MCG INHALER 1 PUFF IH (10:55)
--- OUTSIDE RECORDS SUMMARY | 2024-06-07 13:04 | XMS_ITS | Patient Health Record ---
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
[2024-06-07] MEDS: MONTELUKAST SODIUM 10MG TAB 10 MG PO (17:38)
--- NOTE | 2024-06-07 18:38 | PC.NURSE ---
18:38 Pt. is alert and orientated x 4. Pt. on oxygen 3 liters per NC vital signs stable. Pt. has a congested cough. Possible discharge home tomorrow.
[2024-06-07] MEDS: PANTOPRAZOLE 40MG TABLET 40 MG PO (20:22)
[2024-06-07] MEDS: AMITRIPTYLINE 25MG TABLET 25 MG PO (20:22)
[2024-06-07] MEDS: ROPINIROLE HCL 0.25 MG TABLET PO (20:29)
--- NOTE | 2024-06-07 20:31 | PC.NURSE ---
patient refused CRE swab - stated she has never had CRE before and will be talking to her doctor. patient educated she has the right to refuse and voices no further concerns.
--- NOTE | 2024-06-07 22:13 | P.PN_ITS ---
Subjective *Date: 06/07/24 *Time: 22:13 Exam Data for Last 24 hours Vital signs and Labs for Last 24 Hours: Temp Pulse Resp BP Pulse Ox O2 Del Method O2 Flow Rate 97.8 F 85 18 108/66 L 96 Nasal Cannula 3 06/07/24 20:00 06/07/24 20:00 06/07/24 20:00 06/07/24 20:00 06/07/24 20:00 06/07/24 21:00 06/07/24 21:00 Laboratory Results - last 24 hr 06/06/24 12:27: Hepatitis C Antibody Non reactive 06/07/24 06:32: WBC 6.6 D, RBC 3.36 L, Hgb 10.6 L D, Hct 34.2 L, MCV 101.8 H, MCH 31.6 H, MCHC 31.0 L, RDW 13.6, Plt Count 338, MPV 8.2, Neut % (Auto) 82.9 H, Lymph % (Auto) 11.3, [place] % (Auto) 5.6, Eos % (Auto) 0.1, Baso % (Auto) 0.2, Neut # (Auto) 5.5, Lymph # (Auto) 0.7, [place] # (Auto) 0.4, Eos # (Auto) 0.0, Baso # (Auto) 0.0, Sodium 137, Potassium 3.2 L, Chloride 101, Carbon Dioxide 34 H, Anion Gap 5.2, BUN 9 D, Creatinine 0.50 L D, Estimated Creat Clear 104, Estimated GFR 128, Est GFR ( Amer) 155 D, Glucose 132 H, Calcium 8.5, Magnesium 1.7, Total Bilirubin 0.5, AST 20 D, ALT 15, Alkaline Phosphatase 111, Total Protein 6.1 L, Albumin 3.0 L D, Globulin 3.1, Albumin/Globulin Ratio 1.0 L I & O for Last 24 hours: Intake & Output 06/04/24 06/05/24 06/06/24 06/07/24 23:59 23:59 23:59 23:59 Intake Total 2099 Output Total 0 / 0 0 / 0 Balance 0 1120 2099 Weight 51.755 kg 51.75 kg Microbiology Reports for the Last 24 Hours: Microbiology 06/06/24 12:27 Blood Blood Culture - Preliminary NO GROWTH AFTER 24 HOURS 06/06/24 14:10 Blood Blood Culture - Preliminary NO GROWTH AFTER 24 HOURS Constitutional Constitutional: no acute distress *Routine HEENT Exam Head: Present normocephalic Eye: Present EOMI and PERRL ENT: Present mucous membranes moist *Routine Neck Exam Neck: Present supple; Absent lymphadenopathy *Routine Respiratory Exam Respiratory: Present wheezes and diminished air movement *Routine Cardiovascular Exam Cardiovascular: Present RRR *Routine Abdominal Exam Abdominal: Present soft and normoactive bowel sounds; Absent tenderness *Routine Extremities Exam Extremities: Absent cyanosis, clubbing or edema *Routine Skin Exam Skin: Present warm; Absent rash *Routine Neurological Exam Neurological: Present alert and oriented X3 Assessment and Plan *Assessment and plan (1) Multifocal pneumonia: Status: Acute Category: Medical Code(s): J18.9 - Pneumonia, unspecified organism (2) Acute hypoxemic respiratory failure: Status: Acute Category: Medical Code(s): J96.01 - Acute respiratory failure with hypoxia (3) Sepsis: Status: Acute Category: Medical Code(s): A41.9 - Sepsis, unspecified organism Plan Erinn Nunez is a 54-year-old female with a medical history significant for COPD (on 2 L at night), tobacco use disorder, opioid use disorder on Suboxone, hypothyroidism, hypertension, anxiety/depression, restless legs, GERD who presents with worsening shortness of breath, yellow productive cough. She states has been ongoing for a few days, denies fever/chills, abdominal pain, uri nary symptoms, constipation/diarrhea. Has been adherent to her medications but continues to smoke. In the ED, patient was desaturating to 80% on room air. Workup in the ED significant for WBC 11.1, relatively normal VBG with chronic hypercapnia. CXR shows multifocal pneumonia at the bases of both lungs. Case was discussed with ED provider and decision was made to admit patient for acute on chronic hypoxic respiratory failure in the setting of community-acquired pneumonia. #Acute on chronic hypoxic respiratory failure #Community-acquired pneumonia #Sepsis ? Meet SIRS criteria with leukocytosis, tachypnea, tachycardia. ? WBC 11.1 on admission. CXR suggestive of multifocal pneumonia. ? Ordered 2 L sepsis bolus. Tolerating p.o. intake. ? Currently requiring 3 L nasal cannula. - WBC improved to 6.6. However, patient continues to have increased work of breathing. ? Ceftriaxone, azithromycin day 2/5. ? Follow-up sputum, blood cultures. #Acute COPD exacerbation ? Increased moderate wheezing on bilateral lung hamilton, increased cough with yellow sputum. ? DuoNebs scheduled and as needed. ? Resume home Trelegy. ? Prednisone 40 mg day 3/5. Solu-Medrol 125 mg given in the ED. Chronic medical problems: #Tobacco use disorder #Opioid use disorder #Hypothyroidism #Hypertension #Anxiety/depression #Restless legs #GERD ? Resumed home amitriptyline, carvedilol, gabapentin, levothyroxine, pantoprazole, Requip, Wellbutrin. Full code DVT prophylaxis: Lovenox Regular diet
[2024-06-08] VITALS: BP 112/58; PULSE 68; RESP 16; TEMP 36.7; O2SAT 95
[2024-06-08] MEDS: IPRATROPIUM/ALBUTEROL 3 ML NEB IH ×3 (00:08→11:11)
[2024-06-08] MEDS: ACETAMINOPHEN 325MG TAB 650 MG PO (03:59)
[2024-06-08 04:00] VITALS: BP 99/58; PULSE 65; RESP 16; TEMP 36.6; O2SAT 97; BMI 18.7
[2024-06-08] MEDS: FLUTICASONE/UMECLIDIN/VILANTER 100/62.5/25MCG INHALER 1 PUFF IH (06:04)
[2024-06-08 06:05] VITALS: PULSE 70; PULSE 74; O2SAT 95
[2024-06-08 06:25] LABS: Basophils % 0.6 % (0.1-2.0); Eosinophils # 0.1 K/mm3 (0.0-0.4); Eosinophils % 0.9 % (0.1-12.0); Hematocrit 30.6 % (37.0-47.0); Hemoglobin 9.6 g/dL (12.2-16.2); Lymphocytes # 1.8 K/mm3 (0.7-4.5); Lymphocytes % 24.8 % (10-50); Mean Corpuscular HGB Conc 31.5 g/dL (31.8-35.4); Mean Corpuscular Volume 101.5 fl (81-99); Mean Platelet Volume 8.1 fl (7.4-10.4); Monocytes # 0.7 K/mm3 (0.1-1.0); Monocytes % 9.4 % (1.7-9.3); Neutrophils # 4.5 K/mm3 (1.8-7.8); Neutrophils % 64.3 % (37.0-80.0); Platelet Count 343 K/mm3 (142-424); Red Blood Count 3.01 M/mm3 (4.20-5.40); Red Cell Distribution Width 13.8 % (11.5-17.5); White Blood Count 7.1 K/mm3 (4.8-10.8)
[2024-06-08 06:31] LABS: Albumin Level 2.8 g/dl (3.5-5.0); Chloride 103 mmol/L (98-107); Potassium 3.5 mmoL/L (3.5-5.1); Sodium 138 mmol/L (136-145)
[2024-06-08 06:34] LABS: Alanine Aminotransferase 12 U/L (12-78); Alkaline Phosphatase 99 U/L (38-126); Anion Gap 3.5 mEq/L (5-15); Aspartate Amino Transferase 16 U/L (14-36); Bilirubin,Total 0.3 mg/dl (0.2-1.3); Blood Urea Nitrogen 8 mg/dl (7-17); Carbon Dioxide 35 mmol/L (22.0-30.0); Creatinine Clearance Estimated 109 mL/min (50-200); Estimated Glomerular Filt Rate 128 ml/min (>60); GFR (African American) 155 ML/MIN (>60); Globulin 2.9 g/dL (1.3-3.2); Total Protein,Serum 5.7 g/dl (6.3-8.2)
[2024-06-08 06:35] LABS: Calcium 8.4 mg/dl (8.4-10.2); Glucose 107 mg/dl (74-100)
[2024-06-08] MEDS: LEVOTHYROXINE 137MCG (0.137MG) TAB 137 MCG PO (06:39)
[2024-06-08 08:00] VITALS: BP 102/54; PULSE 82; RESP 18; TEMP 36.3; O2SAT 98
[2024-06-08] MEDS: BUPRENORPHINE/NALOXONE 8MG/2MG ODT 2 EACH SL (08:03)
[2024-06-08] MEDS: AZITHROMYCIN 250MG TABLET 250 MG PO (08:03)
[2024-06-08] MEDS: predniSONE 20MG TAB 40 MG PO (08:03)
[2024-06-08] MEDS: CEFTRIAXONE 1 GM 1 GM in 0.9 % SODIUM CHLORIDE 50 ML IV (08:03)
[2024-06-08] MEDS: ASPIRIN EC 81MG TABLET 81 MG PO (08:03)
[2024-06-08] MEDS: ENOXAPARIN 40MG/0.4ML SYRINGE 40 MG SUBCUT (08:04)
[2024-06-08] MEDS: CARVEDILOL 3.125MG TABLET 3.125 MG PO (08:04)
[2024-06-08] MEDS: POTASSIUM CHLORIDE 10MEQ CAPSULE.ER 10 MEQ PO (08:04)
[2024-06-08] MEDS: buPROPion HCL 100 MG TABLET PO (08:04)
[2024-06-08] MEDS: GABAPENTIN 600MG TABLET 600 MG PO (08:04)
[2024-06-08 11:11] VITALS: PULSE 80; PULSE 82; O2SAT 93
[2024-06-08 12:00] VITALS: BP 91/58; PULSE 80; RESP 20; TEMP 36.7; O2SAT 96
[2024-06-08 13:02] LABS: Hematocrit 32.6 % (37.0-47.0); Hemoglobin 10.1 g/dL (12.2-16.2)
--- NOTE | 2024-06-08 13:30 | PC.NURSE ---
pt tolerated walk test well. ambulated on unit approx. 50 ft. maintained o2 saturation >94% for the duration of exercise.
--- NOTE | 2024-06-08 14:56 | EXP.DC.SUM ---
General Admission date:: 06/06/24 HPI HPI HPI: Erinn Nunez is a 54-year-old female with a medical history significant for COPD (on 2 L at night), tobacco use disorder, opioid use disorder on Suboxone, hypothyroidism, hypertension, anxiety/depression, restless legs, GERD who presents with worsening shortness of breath, yellow productive cough. She states has been ongoing for a few days, denies fever/chills, abdominal pain, urinary symptoms, constipation/diarrhea. Has been adherent to her medications but continues to smoke. In the ED, patient was desaturating to 80% on room air. Workup in the ED significant for WBC 11.1, relatively normal VBG with chronic hypercapnia. CXR shows multifocal pneumonia at the bases of both lungs. Case was discussed with ED provider and decision was made to admit patient for acute on chronic hypoxic respiratory failure in the setting of community-acquired pneumonia. Hospital Course Hospital Course Hospital Course: Erinn Nunez is a 54-year-old female with a medical history significant for COPD (on 2 L at night), tobacco use disorder, opioid use disorder on Suboxone, hypothyroidism, hypertension, anxiety/depression, restless legs, GERD who presents with worsening shortness of breath, yellow productive cough. She states has been ongoing for a few days, denies fever/chills, abdominal pain, urinary symptoms, constipation/diarrhea. Has been adherent to her medications but continues to smoke. In the ED, patient was desaturating to 80% on room air. Workup in the ED significant for WBC 11.1, relatively normal VBG with chronic hypercapnia. CXR shows multifocal pneumonia at the bases of both lungs. Case was discussed with ED provider and decision was made to admit patient for acute on chronic hypoxic respiratory failure in the setting of community-acquired pneumonia. #Acute on chronic hypoxic respiratory failure #Community-acquired pneumonia #Sepsis ? Meet SIRS criteria with leukocytosis, tachypnea, tachycardia. ? WBC 11.1 on admission, improved to 7.1. CXR suggestive of multifocal pneumonia. - Improved with ceftriaxone and azithromycin. Will need to follow-up sputum cultures, however. - Discharged with cefdinir and azithromycin for a total of 5 days. #Acute COPD exacerbation ? Increased moderate wheezing on bilateral lung hamilton, increased cough with yellow sputum. - Improved with Duoneb breathing treatments, prednisone, and home Trelegy. - Discharged with prednisone 40mg for a total of 5 days. Chronic medical problems: #Tobacco use disorder #Opioid use disorder #Hypothyroidism #Hypertension #Anxiety/depression #Restless legs #GERD ? Resumed home amitriptyline, carvedilol, gabapentin, levothyroxine, pantoprazole, Requip, Wellbutrin. Exam Data for Last 24 hours Vital signs and Labs for Last 24 Hours: Temp Pulse Resp BP Pulse Ox O2 Del Method O2 Flow Rate 98.1 F 80 20 91/58 L 96 Nasal Cannula 3 06/08/24 12:00 06/08/24 12:00 06/08/24 12:00 06/08/24 12:00 06/08/24 12:00 06/08/24 12:00 06/08/24 12:00 Laboratory Results - last 24 hr 06/08/24 05:54: WBC 7.1, RBC 3.01 L, Hgb 9.6 L, Hct 30.6 L, MCV 101.5 H, MCH 32.0 H, MCHC 31.5 L, RDW 13.8, Plt Count 343, MPV 8.1, Neut % (Auto) 64.3, Lymph % (Auto) 24.8, [place] % (Auto) 9.4 H, Eos % (Auto) 0.9, Baso % (Auto) 0.6, Neut # (Auto) 4.5, Lymph # (Auto) 1.8, [place] # (Auto) 0.7, Eos # (Auto) 0.1, Baso # (Auto) 0.0, Sodium 138, Potassium 3.5, Chloride 103, Carbon Dioxide 35 H, Anion Gap 3.5 L, BUN 8, Creatinine 0.50 L, Estimated Creat Clear 109, Estimated GFR 128, Est GFR ( Amer) 155, Glucose 107 H, Calcium 8.4, Total Bilirubin 0.3, AST 16, ALT 12, Alkaline Phosphatase 99, Total Protein 5.7 L, Albumin 2.8 L, Globulin 2.9, Albumin/Globulin Ratio 1.0 L 06/08/24 12:55: Hgb 10.1 L, Hct 32.6 L I & O for Last 24 hours: Intake & Output 06/05/24 06/06/24 06/07/24 06/08/24 23:59 23:59 23:59 23:59 Intake Total 2100 / 2740 1520 / 1520 Output Total 0 / 0 0 / 0 0 / 0 Balance 0 / 1120 2099 / 2739 1520 / 1520 Weight 51.755 kg 51.75 kg 54.159 kg Microbiology Reports for the Last 24 Hours: Microbiology 06/06/24 14:10 Blood Blood Culture - Preliminary NO GROWTH AFTER 48 HOURS 06/06/24 12:27 Blood Blood Culture - Preliminary NO GROWTH AFTER 48 HOURS 06/08/24 04:00 Sputum - Expectorated Sputum Gram Stain - Final Constitutional Constitutional: no acute distress *Routine HEENT Exam Head: Present normocephalic Eye: Present EOMI and PERRL ENT: Present mucous membranes moist *Routine Neck Exam Neck: Present supple; Absent lymphadenopathy *Routine Respiratory Exam Respiratory: Present wheezes and diminished air movement *Routine Cardiovascular Exam Cardiovascular: Present RRR *Routine Abdominal Exam Abdominal: Present soft and normoactive bowel sounds; Absent tenderness *Routine Extremities Exam Extremities: Absent cyanosis, clubbing or edema *Routine Skin Exam Skin: Present warm; Absent rash *Routine Neurological Exam Neurological: Present alert and oriented X3 Results Data Completed and Pending Labs on day of discharge: Labs from last 24 hours 06/08/24 06/08/24 12:55 05:54 WBC 7.1 RBC 3.01 L Hgb 10.1 L 9.6 L Hct 32.6 L 30.6 L MCV 101.5 H MCH 32.0 H MCHC 31.5 L RDW 13.8 Plt Count 343 MPV 8.1 Neut % (Auto) 64.3 Lymph % (Auto) 24.8 [place] % (Auto) 9.4 H Eos % (Auto) 0.9 Baso % (Auto) 0.6 Neut # (Auto) 4.5 Lymph # (Auto) 1.8 [place] # (Auto) 0.7 Eos # (Auto) 0.1 Baso # (Auto) 0.0 Sodium 138 Potassium 3.5 Chloride 103 Carbon Dioxide 35 H Anion Gap 3.5 L BUN 8 Creatinine 0.50 L Estimated Creat Clear 109 Estimated GFR 128 Est GFR ( Amer) 155 Glucose 107 H Calcium 8.4 Total Bilirubin 0.3 AST 16 ALT 12 Alkaline Phosphatase 99 Total Protein 5.7 L Albumin 2.8 L Globulin 2.9 Albumin/Globulin Ratio 1.0 L Preliminary micro results at discharge 06/06/24 14:10 Blood Culture - Preliminary Blood NO GROWTH AFTER 48 HOURS 06/06/24 12:27 Blood Culture - Preliminary Blood NO GROWTH AFTER 48 HOURS DS: Diagnosis Discharge Diagnosis (1) Multifocal pneumonia: Status: Acute Code(s): J18.9 - Pneumonia, unspecified organism (2) Acute hypoxemic respiratory failure: Status: Acute Code(s): J96.01 - Acute respiratory failure with hypoxia (3) Sepsis: Status: Resolved Code(s): A41.9 - Sepsis, unspecified organism Meds Home Medications and Allergies Home Medications ?Medication ?Instructions ?Recorded ?Confirmed ?Type buprenorphine 8 mg-naloxone 2 mg 2 tab sublingual DAILY 08/19/19 06/14/24 History sublingual tablet tizanidine 4 mg tablet 4 mg PO TID muscle spasms 10/06/21 06/14/24 History cyanocobalamin (vitamin B-12) 1,000 mcg SQ MONTHLY 12/03/23 06/14/24 History 1,000 mcg/mL injection solution gabapentin 600 mg tablet 600 mg PO TID 12/03/23 06/14/24 History (Neurontin) latanoprost 0.005 % eye drops 1 drp Eye-Both HS 12/03/23 06/14/24 History syringe with needle 3 mL 25 gauge #1 ea 12/11/23 06/14/24 History x 1 (BD Luer-Kaylin Syringe) amitriptyline 25 mg tablet 25 mg PO HS 12/27/23 06/14/24 History estradiol 1 mg tablet (Estrace) 1 mg PO DAILY 01/23/24 06/14/24 History aspirin 81 mg tablet,delayed 81 mg PO DAILY #30 tabs 01/29/24 06/14/24 Rx release (Adult Low Dose Aspirin) bupropion HCl 100 mg tablet,12 hr 100 mg PO BID #180 ea 03/01/24 06/14/24 Rx sustained-release isosorbide mononitrate 30 mg 30 mg PO DAILY #30 tabs 04/25/24 06/14/24 Rx tablet,extended release 24 hr albuterol sulfate 90 mcg/actuation 2 puff inhalation Q4H PRN 05/15/24 06/14/24 History aerosol inhaler Shortness Of Breath Or Wheezing alendronate 70 mg tablet 70 mg PO WEEKLY 05/15/24 06/14/24 History calcium 600 mg (as 1 tab PO DAILY 05/15/24 06/14/24 History carbonate)-vitamin D3 10 mcg (400 unit) tablet carvedilol 3.125 mg tablet 3.125 mg PO BID 05/15/24 06/14/24 History cholecalciferol (vitamin D3) 25 25 mcg PO DAILY 05/15/24 06/14/24 History mcg (1,000 unit) tablet ergocalciferol (vitamin D2) 1,250 1,250 mcg PO WEEKLY 05/15/24 06/14/24 History mcg (50,000 unit) capsule furosemide 40 mg tablet 20 mg PO DAILY 05/15/24 06/14/24 History hydroxyzine pamoate 25 mg capsule 25 mg PO TID PRN Itching 05/15/24 06/14/24 History montelukast 10 mg tablet 10 mg PO PM 05/15/24 06/14/24 History omeprazole 20 mg capsule,delayed 20 mg PO DAILY 05/15/24 06/14/24 History release potassium chloride 10 mEq 10 meq PO BID 05/15/24 06/14/24 History capsule,extended release ropinirole 0.25 mg tablet 0.25 - 0.5 mg PO HS 05/15/24 06/14/24 History fluticasone fur. 100 mcg-umeclid 1 inh inhalation DAILY 30 days #60 05/17/24 06/14/24 Rx 62.5 mcg-vilant 25 mcg ea inhalat.powder (Trelegy Ellipta) lidocaine 5 % topical patch 1 patch topical 2100 #0 ea 05/17/24 06/14/24 Rx levothyroxine 137 mcg tablet 137 mcg PO DAILY 06/06/24 06/14/24 History ibuprofen 800 mg tablet 800 mg PO TID 06/07/24 06/14/24 History levofloxacin 750 mg tablet 750 mg PO DAILY 7 days #7 tabs 06/14/24 06/14/24 Rx New Prescriptions to Start Prescriptions: Allergies Allergy/AdvReac Type Severity Reaction Status Date / Time cefaclor [From CECLOR] Allergy Unknown CAUSES Verified 06/14/24 10:17 YEAST INFECTION Sulfa (Sulfonamide Allergy Unknown I-RASH Verified 06/14/24 10:17 Antibiotics) [SULFA (SULFONAMIDE ANTIBIOTICS)] sulfamethoxazole Allergy Unknown I-RASH Verified 06/14/24 10:17 [From BACTRIM] trimethoprim [From BACTRIM] Allergy Unknown I-RASH Verified 06/14/24 10:17 Discharge Plan Disposition Patient Disposition: Home, Self-Care Condition: Fair Discharge Order Discharge Orders: Discharge Order (Routine); Ordered 06/08/24 Ordered By: Mandeep Addison Follow up Plan Follow up with: Dior Marcial MD [Physician] - 06/14/24 Prescriptions/Medication Reconciliation: Continued (DME) BD Luer-Kaylin Syringe 3 mL 25 gauge x 1 syringe See Rx Instructions .ROUTE .MEDSUPPLY Qty: 1 Patient Comments: USE DIRECTED FOR B12 INJECTIONS Rx Instructions: As directed amitriptyline 25 mg tablet 25 mg PO HS buprenorphine-naloxone 8-2 mg tablet, sublingual 2 tab SUBLINGUAL DAILY tizanidine 4 mg tablet 4 mg PO TID aspirin [Adult Low Dose Aspirin] 81 mg tablet,delayed release (DR/EC) 81 mg PO DAILY Qty: 30 5RF bupropion HCl 100 mg tablet sustained-release 12 hr 100 mg PO BID Qty: 180 0RF latanoprost 0.005 % drops 1 drp Eye-Both HS gabapentin [Neurontin] 600 mg tablet 600 mg PO TID Patient Comments: TAKE 1 TABLET BY MOUTH THREE TIMES DAILY cyanocobalamin (vitamin B-12) 1,000 mcg/mL solution 1,000 mcg SQ MONTHLY Patient Comments: INJECT 1 ML SUBCUTANEOUSLY monthly FOR vitamin b12 deficiency estradiol [Estrace] 1 mg tablet 1 mg PO DAILY Rx Instructions: TAKE ONE TABLET BY MOUTH EVERY DAY furosemide 40 mg tablet 20 mg PO DAILY Patient Comments: TAKE 1/2 TABLET BY MOUTH EVERY DAY potassium chloride 10 mEq capsule, extended release 10 meq PO BID Patient Comments: TAKE ONE CAPSULE BY MOUTH TWICE DAILY carvedilol 3.125 mg tablet 3.125 mg PO BID Patient Comments: TAKE ONE TABLET BY MOUTH TWICE DAILY ropinirole 0.25 mg tablet 0.25 - 0.5 mg PO HS Patient Comments: TAKE 1 TO 2 TABLET(S) BY MOUTH AT least 1 TO 3 hour(s) BEFORE bedtime FOR restless LEGS omeprazole 20 mg capsule,delayed release(DR/EC) 20 mg PO DAILY Patient Comments: TAKE ONE CAPSULE BY MOUTH EVERY DAY FOR gerd montelukast 10 mg tablet 10 mg PO PM Patient Comments: TAKE ONE TABLET BY MOUTH EVERY DAY FOR allergies ergocalciferol (vitamin D2) 1,250 mcg (50,000 unit) capsule 1,250 mcg PO WEEKLY Patient Comments: TAKE ONE CAPSULE BY MOUTH ONCE A WEEK hydroxyzine pamoate 25 mg capsule 25 mg PO TID PRN (Reason: Itching) Patient Comments: TAKE ONE CAPSULE BY MOUTH THREE TIMES DAILY NEEDED FOR ITCHING cholecalciferol (vitamin D3) 25 mcg (1,000 unit) tablet 25 mcg PO DAILY Patient Comments: TAKE ONE TABLET BY MOUTH EVERY DAY calcium carbonate-vitamin D3 600 mg-10 mcg (400 unit) tablet 1 tab PO DAILY Patient Comments: TAKE ONE TABLET BY MOUTH EVERY DAY alendronate 70 mg tablet 70 mg PO WEEKLY albuterol sulfate 90 mcg/actuation Hfa Aerosol Inhaler 2 puff INHALATION Q4H PRN (Reason: Shortness Of Breath Or Wheezing) Trelegy Ellipta 100-62.5-25 mcg Blister With Device 1 inh inhalation DAILY 30 Days Qty: 60 0RF lidocaine 5 % Adhesive Patch,Medicated 1 patch topical 2100 Qty: 0 0RF Rx Instructions: OTC levothyroxine 137 mcg tablet 137 mcg PO DAILY Rx Instructions: TAKE ONE TABLET BY MOUTH EVERY DAY FOR THYROID ibuprofen 800 mg tablet 800 mg PO TID Held isosorbide mononitrate 30 mg tablet extended release 24 hr 30 mg PO DAILY Qty: 30 5RF No Action levofloxacin 750 mg tablet 750 mg PO DAILY 7 Days Qty: 7 0RF Problem Reconciliation Problems Reviewed?: Yes Patient Discharge Instructions ACTIVITY: Continue current activity Patient Instructions: DI for Chronic Obstructive Pulmonary Disease, DI for Pneumonia -- Adult Print Language: [place] Providers Primary Care Provider: Kiana Arenas Admit Provider: Mandeep Addison Attending Provider: Mandeep Addison
--- NOTE | 2024-06-10 14:10 | CARE MANAGER ---
Contacted patient related to hospital discharge. She states she is feeling better. She has her new medications and is going to call Dr. Marcial's office to verify follow up appointment. Denies any questions or concerns at this time. LYUBOV Billings
--- NOTE | 2024-06-13 14:40 | P.EN_ITS ---
Patient sputum returned positive for Pseudomonas. Culture resistant to Cipro and ceftazidime. Sensitive to cefepime and levofloxacin. She was sent home on cefdinir and azithromycin. Have ordered 1 week of 750 mg levofloxacin for adequate treatment of her pneumonia from Pseudomonas. Attempted to call patient today, no answer. Left message to please call the hospital back. 1 week of medication sent to [facility] [place], her pharmacy on file.
== END 2024-06-08 15:50 | disposition home or self-care (01) | DRG 193 ==
LOC: ER 14:31 → 2ND 14:57
PROVIDERS: Admitting Provider Student in an Organized Health Care Education/Training Program; Emergency Provider Emergency Medicine; PCP Physician Assistant; Visit Provider Student in an Organized Health Care Education/Training Program
DX: J18.9 Pneumonia, unspecified organism (principal); A41.9 Sepsis, unspecified organism; J96.21 Acute and chronic respiratory failure with hypoxia; J44.1 Chronic obstructive pulmonary disease with (acute) exacerbation; F17.210 Nicotine dependence, cigarettes, uncomplicated; E55.9 Vitamin D deficiency, unspecified; Z99.81 Dependence on supplemental oxygen; Z79.891 Long term (current) use of opiate analgesic; Z79.899 Other long term (current) drug therapy; E03.9 Hypothyroidism, unspecified
CPT/HCPCS: 36415; 71045; 80053; 82803; 83735; 85014; 85018; 85025; 86803; 87040; 87070; 87077; 87186; 87205; 87389; 94640; 94761; 99291; J0574; J0696; J1650; J1885; J2919; J7120; J7620

== ENCOUNTER 2024-06-14 09:23 | Outpatient (CLI) | payer MEDICAID, SELFPAY ==
--- NOTE | 2024-06-14 09:28 | XR_ITS ---
FINAL REPORT CLINICAL HISTORY: copd COMPARISON: None FINDINGS: Two views of the chest were obtained. The heart size and pulmonary vascularity are within normal limits. The mediastinum is normal. The lungs are hyperinflated consistent with COPD. Mild scarring is noted. No acute pulmonary abnormality is identified. There is no pneumothorax. The bony thorax is intact. IMPRESSION: No active cardiopulmonary disease. Reviewed, Interpreted and Dictated by Osvaldo Kolb III, MD Transcribed by Cadence Lu Authenticated and [facility]
[2024-06-15 07:35] LABS: Alpha-1-Antitrypsin 164 mg/dL (101-187)
[2024-06-16 17:34] LABS: Histoplasma Gal'mannan Ag Ur Negative (<0.2 ng/mL)
[2024-06-21 19:20] LABS: Alpha-1-Antitrypsin 165 mg/dL (101-187); Phenotype (PI) MS (.)
== END 2024-06-14 23:59 | disposition home or self-care (01) ==
LOC: RAD 09:25
PROVIDERS: Internal Medicine Pulmonary Disease; PCP Physician Assistant; Visit Provider Physician Assistant
DX: J44.1 Chronic obstructive pulmonary disease with (acute) exacerbation (principal); R06.09 Other forms of dyspnea
CPT/HCPCS: 36415; 71046; 82103; 82104; 87385

== ENCOUNTER 2024-07-21 20:48 | Observation (INO) | payer MEDICAID, SELFPAY ==
[2024-07-21 21:10] VITALS: BP 120/61; PULSE 90; RESP 20; TEMP 36.8; O2SAT 94; BMI 19.5
--- NOTE | 2024-07-21 21:16 | ECG_ITS ---
APPROVED REPORT Exam: Resting ECG HR:87 bpm ECG Measurements Heart Rate 87 AXES AZ 167 P 83 QRSd 93 QRS 98 QT 368 T 71 QTc 413 Conclusion SINUS RHYTHM BORDERLINE RIGHT AXIS DEVIATION [QRS AXIS > 90] BORDERLINE ECG Electronically signed by : CE ANAYA, 07/21/2024 23:45:20
--- NOTE | 2024-07-21 21:50 | CT_ITS ---
PROCEDURE INFORMATION: Exam: CTA Chest With Contrast Exam date and time: 07/21/2024 11:29 PM Age: 54 years old Clinical indication: Other: Lower chest pain; Additional info: Upper abd/lower chest pain TECHNIQUE: Imaging protocol: Computed tomographic angiography of the chest with contrast. Exam focused on the arteries. 3D rendering (Not supervised by radiologist): MIP and/or 3D reconstructed images were created by the technologist. Radiation optimization: All CT scans at this facility use at least one of these dose optimization techniques: automated exposure control; mA and/or kV adjustment per patient size (includes targeted exams where dose is matched to clinical indication); or iterative reconstruction. Contrast material: ISOUVE 370; Contrast volume: 70 ml; Contrast route: INTRAVENOUS (IV); COMPARISON: CT ANGIO CHEST PE PROTOCOL 07/21/2024 11:29 PM FINDINGS: Pulmonary arteries: Mild enlargement of the pulmonary trunk measuring 3.5 cm. Aorta: Unremarkable. No aortic aneurysm. No aortic dissection. Lungs: Severe emphysematous changes. Bilateral lower lobe honeycombing. Right middle lobe calcified granuloma. Pleural spaces: Unremarkable. No pneumothorax. No pleural effusion. Heart: Unremarkable. No cardiomegaly. No pericardial effusion. Lymph nodes: Mildly prominent mediastinal lymph nodes. Bones/joints: Subacute fracture of the manubrium and right anterior 2nd-4th ribs. Soft tissues: Unremarkable. IMPRESSION: 1. No pulmonary embolus. 2. Severe emphysematous changes. 3. Subacute fracture of the manubrium and right anterior 2nd-4th ribs. COMMENTS: The presence of pulmonary emphysema on CT is an independent risk factor for lung cancer. In the absence of a history or active diagnosis of lung cancer, it is recommended that this patient with emphysema be evaluated for enrollment in a low dose CT lung cancer screening program.
--- NOTE | 2024-07-21 21:50 | CT_ITS ---
PROCEDURE INFORMATION: Exam: CT Abdomen And Pelvis With Contrast Exam date and time: 07/21/2024 11:29 PM Age: 54 years old Clinical indication: Abdominal pain; Additional info: Upper abd/lower chest pain TECHNIQUE: Imaging protocol: Computed tomography of the abdomen and pelvis with contrast. 3D rendering (Not supervised by radiologist): MIP and/or 3D reconstructed images were created by the technologist. Radiation optimization: All CT scans at this facility use at least one of these dose optimization techniques: automated exposure control; mA and/or kV adjustment per patient size (includes targeted exams where dose is matched to clinical indication); or iterative reconstruction. Contrast material: ISOVUE; Contrast volume: 70 ml; Contrast route: IV; COMPARISON: ABDPELWO CT abdomen pelvis wo con 04/16/2018 2:35 PM FINDINGS: Lungs: Centrilobular emphysema. Bibasilar honeycombing. Right middle lobe calcified granuloma. Liver: Unremarkable. Gallbladder and biliary ducts: Unremarkable gallbladder. Nonspecific dilation of the CBD measuring 10 mm. No definite radiopaque obstructing stones. Pancreas: Unremarkable. Spleen: Unremarkable. Adrenal glands: Unremarkable. Kidneys and ureters: Bilateral simple cortical renal cysts. Stomach and bowel: Unremarkable. No mechanical obstruction. No mucosal thickening. Appendix: Unremarkable. Intraperitoneal space: No free air or free fluid. Vasculature: Moderate atherosclerotic changes of the aorta and its major branches. Lymph nodes: Unremarkable. Urinary bladder: Unremarkable. Reproductive: Hysterectomy. Bones/joints: Unremarkable. No acute fracture. Soft tissues: Unremarkable. IMPRESSION: 1. No acute abdominopelvic abnormality. 2. Nonspecific dilation of the CBD measuring 10 mm. No definite radiopaque obstructing stones. Recommend MRCP for further evaluation. COMMENTS: Consistent with the [employer]'s Incidental Findings Committee white paper (J Am Shabana Radiol 2018): Any incidental renal lesion less than 1 cm or classified as too small to characterize, or any incidental cystic renal lesion characterized as simple-appearing, is likely benign. No follow-up imaging is recommended for these lesions per consensus recommendations based on imaging criteria.
--- NOTE | 2024-07-21 22:26 | PC.NURSE ---
Awake alert and oriented x3 Skin pink warm and dry. Pt's resp gaurded due to pain. Resp otherwise full and easy Speech clear and appropriate. Gait steady
[2024-07-21] MEDS: KETOROLAC 30MG/ML VIAL 15 MG IV (22:30)
[2024-07-21] MEDS: ACETAMINOPHEN 1,000MG/100ML VIAL 1000 MG IV (22:30)
[2024-07-21 22:37] LABS: Coronavirus 19, PCR Not Detected (NotDetected); Influenza A, PCR Not Detected (NotDetected); Influenza B, PCR Not Detected (NotDetected)
[2024-07-21 22:39] LABS: Basophils # 0.1 K/mm3 (0-0.2); Basophils % 0.7 % (0.1-2.0); Eosinophils % 0.5 % (0.1-12.0); Hematocrit 37.7 % (37.0-47.0); Hemoglobin 12.1 g/dL (12.2-16.2); Lymphocytes # 0.8 K/mm3 (0.7-4.5); Lymphocytes % 10.2 % (10-50); Mean Corpuscular HGB Conc 32.1 g/dL (31.8-35.4); Mean Corpuscular Volume 96.5 fl (81-99); Mean Platelet Volume 7.8 fl (7.4-10.4); Monocytes # 0.3 K/mm3 (0.1-1.0); Monocytes % 3.4 % (1.7-9.3); Neutrophils % 85.2 % (37.0-80.0); Platelet Count 345 K/mm3 (142-424); Red Cell Distribution Width 13.5 % (11.5-17.5); White Blood Count 8.2 K/mm3 (4.8-10.8)
[2024-07-21 22:41] LABS: Albumin Level 3.8 g/dl (3.5-5.0); Chloride 102 mmol/L (98-107); Potassium 3.1 mmoL/L (3.5-5.1); Sodium 137 mmol/L (136-145)
[2024-07-21 22:43] LABS: Blood Urea Nitrogen 6 mg/dl (7-17); Creatinine Clearance Estimated 114 mL/min (50-200); Estimated Glomerular Filt Rate 128 ml/min (>60); GFR (African American) 155 ML/MIN (>60)
[2024-07-21 22:44] LABS: Alanine Aminotransferase 14 U/L (12-78); Albumin/Globulin Ratio 1.2 (1.1-1.8); Alkaline Phosphatase 106 U/L (38-126); Anion Gap 6.1 mEq/L (5-15); Aspartate Amino Transferase 26 U/L (14-36); Bilirubin,Total 0.3 mg/dl (0.2-1.3); Calcium 8.7 mg/dl (8.4-10.2); Carbon Dioxide 32 mmol/L (22.0-30.0); Globulin 3.1 g/dL (1.3-3.2); Glucose 127 mg/dl (74-100); Total Protein,Serum 6.9 g/dl (6.3-8.2)
[2024-07-21 22:45] LABS: MANUAL DIFFERENTIAL MANUAL DIFFERENTIAL (MANUAL DIFF)
[2024-07-21] MEDS: IPRATROPIUM/ALBUTEROL 3 ML NEB IH (22:50)
[2024-07-21 22:52] VITALS: PULSE 92
[2024-07-21 23:01] LABS: Troponin I < 0.01 ng/ml (0.00-0.034)
--- NOTE | 2024-07-21 23:27 | HMH.EDGENADL ---
Discharge Plan Disposition Patient Disposition: Admitted Condition: Good Clinical Impressions Clinical Impression: Chest pain, Cough, Hypokalemia, Common bile duct dilation Discharge ED Provider: Chantell Tam General Adult HPI <Chantell Tam DO - Last Filed: 07/21/24 23:32> General Chief complaint: Back Pain/Injury Stated complaint: SOA, back and rib pain Time Seen by Provider: 07/21/24 21:39 Mode of Arrival: Ambulatory Source of Information: Patient Limitations: No Limitations Description of Symptoms (Recalled from ER Triage Doc. by RN): chest and back pain states it feels like her previous pneumonia History of Present Illness HPI narrative: This patient is a 54-year-old female with a history of tobacco dependence, COPD, Pseudomonas pneumonia, hypertension, GERD presenting to the emergency department for evaluation with concern for chest and back pain that feels like her prior pneumonia. She states it is all around her ribs. She states it is severe and constant. Is been going on several days. She also notes increased cough and shortness of breath, which also feels similar to prior pneumonia. No other concerns noted such as nausea, vomiting, changes bowel movements. No calf pain or swelling. Related Data Home Medications ?Medication ?Instructions ?Recorded ?Confirmed buprenorphine 8 mg-naloxone 2 mg 2 tab sublingual DAILY 08/19/19 06/14/24 sublingual tablet tizanidine 4 mg tablet 4 mg PO TID muscle spasms 10/06/21 06/14/24 cyanocobalamin (vitamin B-12) 1,000 mcg SQ MONTHLY 12/03/23 06/14/24 1,000 mcg/mL injection solution gabapentin 600 mg tablet 600 mg PO TID 12/03/23 06/14/24 (Neurontin) latanoprost 0.005 % eye drops 1 drp Eye-Both HS 12/03/23 06/14/24 syringe with needle 3 mL 25 gauge #1 ea 12/11/23 06/14/24 x 1 (BD Luer-Kaylin Syringe) amitriptyline 25 mg tablet 25 mg PO HS 12/27/23 06/14/24 estradiol 1 mg tablet (Estrace) 1 mg PO DAILY 01/23/24 06/14/24 albuterol sulfate 90 mcg/actuation 2 puff inhalation Q4H PRN 05/15/24 06/14/24 aerosol inhaler Shortness Of Breath Or Wheezing alendronate 70 mg tablet 70 mg PO WEEKLY 05/15/24 06/14/24 calcium 600 mg (as 1 tab PO DAILY 05/15/24 06/14/24 carbonate)-vitamin D3 10 mcg (400 unit) tablet carvedilol 3.125 mg tablet 3.125 mg PO BID 05/15/24 06/14/24 cholecalciferol (vitamin D3) 25 25 mcg PO DAILY 05/15/24 06/14/24 mcg (1,000 unit) tablet ergocalciferol (vitamin D2) 1,250 1,250 mcg PO WEEKLY 05/15/24 06/14/24 mcg (50,000 unit) capsule furosemide 40 mg tablet 20 mg PO DAILY 05/15/24 06/14/24 hydroxyzine pamoate 25 mg capsule 25 mg PO TID PRN Itching 05/15/24 06/14/24 montelukast 10 mg tablet 10 mg PO PM 05/15/24 06/14/24 omeprazole 20 mg capsule,delayed 20 mg PO DAILY 05/15/24 06/14/24 release potassium chloride 10 mEq 10 meq PO BID 05/15/24 06/14/24 capsule,extended release ropinirole 0.25 mg tablet 0.25 - 0.5 mg PO HS 05/15/24 06/14/24 levothyroxine 137 mcg tablet 137 mcg PO DAILY 06/06/24 06/14/24 ibuprofen 800 mg tablet 800 mg PO TID 06/07/24 06/14/24 Previous Rx's ?Medication ?Instructions ?Recorded aspirin 81 mg tablet,delayed 81 mg PO DAILY #30 tabs 01/29/24 release (Adult Low Dose Aspirin) bupropion HCl 100 mg tablet,12 hr 100 mg PO BID #180 ea 03/01/24 sustained-release isosorbide mononitrate 30 mg 30 mg PO DAILY #30 tabs 04/25/24 tablet,extended release 24 hr fluticasone fur. 100 mcg-umeclid 1 inh inhalation DAILY 30 days #60 05/17/24 62.5 mcg-vilant 25 mcg ea inhalat.powder (Trelegy Ellipta) lidocaine 5 % topical patch 1 patch topical 2100 #0 ea 05/17/24 levofloxacin 750 mg tablet 750 mg PO DAILY 7 days #7 tabs 06/14/24 levofloxacin 750 mg tablet 750 mg PO DAILY 6 days #6 tabs 07/22/24 Allergies Allergy/AdvReac Type Severity Reaction Status Date / Time cefaclor (From CECLOR) Allergy Unknown CAUSES Verified 06/14/24 10:17 YEAST INFECTION Sulfa (Sulfonamide Allergy Unknown I-RASH Verified 06/14/24 10:17 Antibiotics) (SULFA (SULFONAMIDE ANTIBIOTICS)) sulfamethoxazole (From Allergy Unknown I-RASH Verified 06/14/24 10:17 BACTRIM) trimethoprim (From BACTRIM) Allergy Unknown I-RASH Verified 06/14/24 10:17 PFSH <Chantell Tam DO - Last Filed: 07/21/24 23:32> [facility] Disclaimer: The information contained in this section may have been updated after the patient was seen, as this information can be updated by other users. Medical History Exposure to respiratory syncytial virus (RSV) Foot fracture, right Chest wall injury Pneumonia Pseudomonas pneumonia Smoking greater than 30 pack years Acute respiratory failure with hypoxemia Pulmonary emphysema Abnormal findings on diagnostic imaging of heart and coronary circulation Left to right cardiac shunt Interatrial cardiac shunt Dyspnea Chest pain in adult Hypoxia Cough Hypothyroidism (~03/22/18) Epigastric pain Anorexia Early satiety Unexplained weight loss Interstitial cystitis Allergic rhinitis GERD (gastroesophageal reflux disease) Low back pain Edema Vitamin D deficiency Hypertension COPD (chronic obstructive pulmonary disease) Surgical History H/O: hysterectomy Family History Mother Family history of acute congestive heart failure Sister Cancer Other Family history of hyperlipidemia Family history of hypertension Social History Smoking Status: Current every day smoker tobacco type: cigarettes packs per day: 1 alcohol intake: never substance use type: former substance user, opiates and painkillers current occupational status: unemployed and disabled Travel in the last 8 weeks: None household members: spouse and family housing: house caffeine: Yes Have you lived/traveled outside [place] in past 30 days?: No Contact w/someone who lives/traveled outside US past 30 days?: No Exposure to someone with infectious disease in past 14 days?: No Do you have a fever (greater than 100.4 F or 38 C)?: No Have you tested positive for COVID-19: No Exposed to someone with COVID-19 in past 14 days?: No Do you have a sore throat?: No Do you have a cough?: Yes Do you have any weakness?: No Do you have any diarrhea?: No Are you experiencing any unusual bleeding?: No Do you have any muscle aches/pain?: No Do you have any abdominal pain?: No Are you experiencing loss of taste or smell?: No Other Medical History Have you received the Flu Vaccine for this season: No Have you received the Pneumonia Vaccine: No <Chantell Tam DO - Last Filed: 07/21/24 23:32> ROS Obtained: Yes All systems reviewed & no additional complaints except as documented Physical Exam <Chantell Tam DO - Last Filed: 07/21/24 23:32> General General appearance: alert and in no apparent distress Head Head exam: atraumatic and normocephalic Eye Eye exam: Present normal appearance, PERRL and EOMI ENT ENT exam: Present normal exam, normal oropharynx, mucous membranes moist and normal external ear exam Neck Neck exam: Present normal inspection, full ROM and trachea midline; Absent tenderness Chest Chest inspection: Present symmetric chest wall rise and tenderness (Lower chest wall) Respiratory Respiratory exam: Present wheezes and other (Wheezes and rhonchi, worse at the lung bases. No acute respiratory distress.); Absent respiratory distress, stridor or accessory muscle use Cardiovascular Cardiovascular exam: Present regular rate and normal rhythm Abdominal Exam Abdominal exam: Present soft and tenderness (Mild upper abdominal tenderness/epigastric); Absent distention or guarding Extremities Exam Extremities exam: Present normal inspection, full ROM and normal capillary refill; Absent tenderness or edema Back Exam Back exam: Present normal inspection and full ROM; Absent tenderness Neurological Exam Neurological exam: Present alert, oriented X3, CN II-XII intact and normal gait; Absent motor sensory deficit Psychiatric Psychiatric exam: Present normal affect and normal mood Skin Skin exam: Present warm and dry Medical Decision Making <Chantell Tam DO - Last Filed: 07/21/24 23:32> Medical Records Medical records reviewed: Yes I reviewed the patient's medical records. Screening: Per USPSTF and CDC recommendations, given the prevalence of disease in our region, it is our hospital?s policy to screen for HIV and viral Hepatitis for all patients aged 18 and over and those with ongoing risk factors. Faisal Inquiry Pt receiving controlled substance: No Vital Signs: 07/21/24 21:10 07/21/24 22:52 07/22/24 00:30 Temperature 98.3 F Temperature Source Oral Pulse Rate 92 H Pulse Rate [Right Brachial] 90 Respiratory Rate 20 11 L Blood Pressure 95/54 L Blood Pressure [Right Arm] 120/61 Blood Pressure Mean [Right Arm] 80 Blood Pressure Source [Right Arm] Automatic Cuff Blood Pressure Position [Right Arm] Sitting 02 Sat by Pulse Oximetry 94 L Oxygen Delivery Method Room Air 07/22/24 01:01 07/22/24 01:30 07/22/24 02:00 Temperature Temperature Source Pulse Rate 77 72 68 Pulse Rate [Right Brachial] Respiratory Rate 10 L 11 L 9 L Blood Pressure 114/71 96/56 L 103/64 L Blood Pressure [Right Arm] Blood Pressure Mean [Right Arm] Blood Pressure Source [Right Arm] Blood Pressure Position [Right Arm] 02 Sat by Pulse Oximetry 96 95 97 Oxygen Delivery Method Lab Data Lab results reviewed: Yes I reviewed the patient's lab results. Lab Results 07/21/24 22:10: SARS-CoV-2 (PCR) Not detected, Influenza A Untype (PCR) Not detected, Influenza Type B (PCR) Not detected 07/21/24 22:15: WBC 8.2, RBC 3.90 L, Hgb 12.1 L, Hct 37.7, MCV 96.5, MCH 31.0, MCHC 32.1, RDW 13.5, Plt Count 345, MPV 7.8, Neut % (Auto) 85.2 H, Lymph % (Auto) 10.2, [place] % (Auto) 3.4, Eos % (Auto) 0.5, Baso % (Auto) 0.7, Neut # (Auto) 7.0, Lymph # (Auto) 0.8, [place] # (Auto) 0.3, Eos # (Auto) 0.0, Baso # (Auto) 0.1, Total Counted 100, Neutrophils % (Manual) 87 H, Lymphocytes % (Manual) 9 L, Monocytes % (Manual) 3, Eosinophils % (Manual) 1, Platelet Estimate Normal, Hypochromasia 2+, Stomatocytes 3+, Sodium 137, Potassium 3.1 L, Chloride 102, Carbon Dioxide 32 H, Anion Gap 6.1, BUN 6 L, Creatinine 0.50 L, Estimated Creat Clear 114, Estimated GFR 128, Est GFR ( Amer) 155, Glucose 127 H, Calcium 8.7, Total Bilirubin 0.3, AST 26, ALT 14, Alkaline Phosphatase 106, Troponin I < 0.01, Total Protein 6.9, Albumin 3.8, Globulin 3.1, Albumin/Globulin Ratio 1.2 07/22/24 01:53: Troponin I 0.02 07/21/24 22:15 07/21/24 22:15 Orders (Tests/Meds): ED MEDICATIONS Generic Name Dose Route Start Last Admin Trade Name Freq PRN Reason Stop Dose Admin Cefepime HCl 1 gm/ Sodium 50 mls @ 100 mls/hr 07/22/24 03:00 Chloride IV 07/29/24 02:59 Q12H SARINA Vancomycin HCl 1,000 mg/ 250 mls @ 125 mls/hr 07/22/24 02:48 Sodium Chloride IV 07/22/24 02:49 ONCE ONE Miscellaneous 1 each 07/22/24 03:00 Vancomycin Consult Request NOTAPPLIC 08/21/24 02:59 CONSULT PHARMACY [facility] Sodium Chloride 10 ml 07/21/24 23:54 07/21/24 23:55 Sodium Chloride 0.9% 10ml Syr (Rad Only) IV 08/20/24 23:53 10 ml NEEDED PRN Administration Maintain IV Site Discontinued Medications Generic Name Dose Route Start Last Admin Trade Name Freq PRN Reason Stop Dose Admin Acetaminophen 1,000 mg 07/21/24 21:51 07/21/24 22:30 Acetaminophen 1,000mg/100ml Vial IV 07/21/24 21:52 1,000 mg ONCE ONE Administration Albuterol/Ipratropium 3 ml 07/21/24 21:50 07/21/24 22:50 Ipratropium/Albuterol 3 Ml Neb IH 07/21/24 21:51 3 ml ONCE ONE Administration Potassium Chloride/Water 100 mls @ 100 mls/hr 07/21/24 23:02 07/21/24 23:31 Potassium Chloride 10meq/100ml Ivpb IV 07/22/24 00:01 100 mls/hr ONCE ONE Administration Lactated Ringer's 500 mls @ 999 mls/hr 07/21/24 23:02 07/21/24 23:32 Lactated Ringer's 500ml IV 07/21/24 23:32 999 mls/hr .Q31M ONE Administration Iopamidol 70 ml 07/21/24 23:54 07/21/24 23:55 Iopamidol-370 (76%);100ml Bottle IV 07/21/24 23:55 70 ml ONCE ONE Administration Ketorolac Tromethamine 15 mg 07/21/24 21:51 07/21/24 22:30 Ketorolac 30mg/Ml Vial IV 07/21/24 21:52 15 mg ONCE ONE Administration Levofloxacin 750 mg 07/22/24 00:52 07/22/24 01:49 Levofloxacin 750 Mg Tablet PO 07/22/24 00:53 750 mg ONCE ONE Administration Morphine Sulfate 4 mg 07/21/24 23:01 07/21/24 23:31 Morphine 4mg/Ml Syringe IV 07/21/24 23:02 4 mg ONCE ONE Administration Ondansetron HCl 4 mg 07/21/24 23:01 07/21/24 23:31 Ondansetron 4mg/2ml Vial IV 07/21/24 23:02 4 mg ONCE ONE Administration Potassium Chloride 40 meq 07/21/24 23:02 07/21/24 23:31 Potassium Chloride 20meq Tab PO 07/21/24 23:03 40 meq ONCE ONE Administration Sodium Chloride 50 ml 07/21/24 23:54 07/21/24 23:55 0.9 % Sodium Chloride 50 Ml Vial IV 07/21/24 23:55 50 ml ONCE ONE Administration ORDERS Category Date Time Status CT abdomen pelvis w con Stat Cat Scan 07/21/24 21:[address] angio chest PE protocol Stat Cat Scan 07/21/24 21:50 Completed CBC w/Auto Diff [Complete Blood Count Auto Diff] Stat Lab 07/21/24 22:15 Completed CMP [Comprehensive Metabolic Panel] Stat Lab 07/21/24 22:15 Completed Rapid PCR Covid and Flu A/B Stat Lab 07/21/24 22:10 Completed Trop I [Troponin I] Stat Lab 07/21/24 22:15 Completed Troponin I Q3H Lab 07/22/24 01:53 Completed Troponin I Q3H Lab 07/22/24 04:00 Ordered Blood Culture Stat Micro 07/22/24 01:53 Ordered ECG Request Stat Y 07/22/24 02:38 Ordered ECG Data Tracing #1: I reviewed this ECG and interpreted as documented below: Normal sinus rhythm with ventricular of 87 bpm. Borderline right axis deviation. No acute ST changes concerning for ischemia. Normal intervals. ECG initial impression date: 07/21/24 ECG initial impression time: 12:25 Medical Decision Narrative: In summary, this patient is a 54-year-old female presenting to the Emergency Department for evaluation of lower chest/upper abdominal pain radiating around to her back that feels similar to prior pneumonia. Differential diagnoses considered include but are not limited to pneumonia, ACS, costochondritis, GERD, pancreatitis, aortic pathology. Ruling out the most morbid conditions drove assessment. It should be noted patient's history includes COPD, tobacco dependence which are not at goal therapy. This complicates all aspects of care by increasing patient's risk for morbidity. I reviewed patient's past medical records and noted previous evaluations by pulmonology as well as prior admission back in May. Patient was admitted for acute exacerbation of COPD and Pseudomonas pneumonia.. On exam, the patient is sitting upright in the chair and is uncomfortable appearing. She has some chest wall tenderness, bilateral basilar rhonchi and wheezes, mild epigastric abdominal tenderness. Workup included CBC, CMP, troponin, CT PE, CT abdomen pelvis with IV contrast, EKG. EKG obtained is nonischemic. Patient was initially given IV Toradol and oral Tylenol for symptomatic improvement as well as a DuoNeb, but she states that this did not help her pain. She was then given IV morphine and Zofran. Labs demonstrated hypokalemia, for which IV and oral placement were ordered as well as a 500 cc bolus of IV fluids. CBC and CMP otherwise reassuring. Patient present at the oncoming provider, Dr. Shankar, pending CT scans. <Lupillo Shankar MD - Last Filed: 07/22/24 02:59> Vital Signs: 07/21/24 21:10 07/21/24 22:52 07/22/24 00:30 Temperature 98.3 F Temperature Source Oral Pulse Rate 92 H Pulse Rate [Right Brachial] 90 Respiratory Rate 20 11 L Blood Pressure 95/54 L Blood Pressure [Right Arm] 120/61 Blood Pressure Mean [Right Arm] 80 Blood Pressure Source [Right Arm] Automatic Cuff Blood Pressure Position [Right Arm] Sitting 02 Sat by Pulse Oximetry 94 L Oxygen Delivery Method Room Air 07/22/24 01:01 07/22/24 01:30 07/22/24 02:00 Temperature Temperature Source Pulse Rate 77 72 68 Pulse Rate [Right Brachial] Respiratory Rate 10 L 11 L 9 L Blood Pressure 114/71 96/56 L 103/64 L Blood Pressure [Right Arm] Blood Pressure Mean [Right Arm] Blood Pressure Source [Right Arm] Blood Pressure Position [Right Arm] 02 Sat by Pulse Oximetry 96 95 97 Oxygen Delivery Method Lab Data Lab Results 07/21/24 22:10: SARS-CoV-2 (PCR) Not detected, Influenza A Untype (PCR) Not detected, Influenza Type B (PCR) Not detected 07/21/24 22:15: WBC 8.2, RBC 3.90 L, Hgb 12.1 L, Hct 37.7, MCV 96.5, MCH 31.0, MCHC 32.1, RDW 13.5, Plt Count 345, MPV 7.8, Neut % (Auto) 85.2 H, Lymph % (Auto) 10.2, [place] % (Auto) 3.4, Eos % (Auto) 0.5, Baso % (Auto) 0.7, Neut # (Auto) 7.0, Lymph # (Auto) 0.8, [place] # (Auto) 0.3, Eos # (Auto) 0.0, Baso # (Auto) 0.1, Total Counted 100, Neutrophils % (Manual) 87 H, Lymphocytes % (Manual) 9 L, Monocytes % (Manual) 3, Eosinophils % (Manual) 1, Platelet Estimate Normal, Hypochromasia 2+, Stomatocytes 3+, Sodium 137, Potassium 3.1 L, Chloride 102, Carbon Dioxide 32 H, Anion Gap 6.1, BUN 6 L, Creatinine 0.50 L, Estimated Creat Clear 114, Estimated GFR 128, Est GFR ( Amer) 155, Glucose 127 H, Calcium 8.7, Total Bilirubin 0.3, AST 26, ALT 14, Alkaline Phosphatase 106, Troponin I < 0.01, Total Protein 6.9, Albumin 3.8, Globulin 3.1, Albumin/Globulin Ratio 1.2 07/22/24 01:53: Troponin I 0.02 Orders (Tests/Meds): ED MEDICATIONS Generic Name Dose Route Start Last Admin Trade Name Freq PRN Reason Stop Dose Admin Cefepime HCl 1 gm/ Sodium 50 mls @ 100 mls/hr 07/22/24 03:00 Chloride IV 07/29/24 02:59 Q12H SARINA Vancomycin HCl 1,000 mg/ 250 mls @ 125 mls/hr 07/22/24 02:48 Sodium Chloride IV 07/22/24 02:49 ONCE ONE Miscellaneous 1 each 07/22/24 03:00 Vancomycin Consult Request NOTAPPLIC 08/21/24 02:59 CONSULT PHARMACY [facility] Sodium Chloride 10 ml 07/21/24 23:54 07/21/24 23:55 Sodium Chloride 0.9% 10ml Syr (Rad Only) IV 08/20/24 23:53 10 ml NEEDED PRN Administration Maintain IV Site Discontinued Medications Generic Name Dose Route Start Last Admin Trade Name Freq PRN Reason Stop Dose Admin Acetaminophen 1,000 mg 07/21/24 21:51 07/21/24 22:30 Acetaminophen 1,000mg/100ml Vial IV 07/21/24 21:52 1,000 mg ONCE ONE Administration Albuterol/Ipratropium 3 ml 07/21/24 21:50 07/21/24 22:50 Ipratropium/Albuterol 3 Ml Neb IH 07/21/24 21:51 3 ml ONCE ONE Administration Potassium Chloride/Water 100 mls @ 100 mls/hr 07/21/24 23:02 07/21/24 23:31 Potassium Chloride 10meq/100ml Ivpb IV 07/22/24 00:01 100 mls/hr ONCE ONE Administration Lactated Ringer's 500 mls @ 999 mls/hr 07/21/24 23:02 07/21/24 23:32 Lactated Ringer's 500ml IV 07/21/24 23:32 999 mls/hr .Q31M ONE Administration Iopamidol 70 ml 07/21/24 23:54 07/21/24 23:55 Iopamidol-370 (76%);100ml Bottle IV 07/21/24 23:55 70 ml ONCE ONE Administration Ketorolac Tromethamine 15 mg 07/21/24 21:51 07/21/24 22:30 Ketorolac 30mg/Ml Vial IV 07/21/24 21:52 15 mg ONCE ONE Administration Levofloxacin 750 mg 07/22/24 00:52 07/22/24 01:49 Levofloxacin 750 Mg Tablet PO 07/22/24 00:53 750 mg ONCE ONE Administration Morphine Sulfate 4 mg 07/21/24 23:01 07/21/24 23:31 Morphine 4mg/Ml Syringe IV 07/21/24 23:02 4 mg ONCE ONE Administration Ondansetron HCl 4 mg 07/21/24 23:01 07/21/24 23:31 Ondansetron 4mg/2ml Vial IV 07/21/24 23:02 4 mg ONCE ONE Administration Potassium Chloride 40 meq 07/21/24 23:02 07/21/24 23:31 Potassium Chloride 20meq Tab PO 07/21/24 23:03 40 meq ONCE ONE Administration Sodium Chloride 50 ml 07/21/24 23:54 07/21/24 23:55 0.9 % Sodium Chloride 50 Ml Vial IV 07/21/24 23:55 50 ml ONCE ONE Administration ORDERS Category Date Time Status CT abdomen pelvis w con Stat Cat Scan 07/21/24 21:[address] angio chest PE protocol Stat Cat Scan 07/21/24 21:50 Completed CBC w/Auto Diff [Complete Blood Count Auto Diff] Stat Lab 07/21/24 22:15 Completed CMP [Comprehensive Metabolic Panel] Stat Lab 07/21/24 22:15 Completed Rapid PCR Covid and Flu A/B Stat Lab 07/21/24 22:10 Completed Trop I [Troponin I] Stat Lab 07/21/24 22:15 Completed Troponin I Q3H Lab 07/22/24 01:53 Completed Troponin I Q3H Lab 07/22/24 04:00 Ordered Blood Culture Stat Micro 07/22/24 01:53 Ordered ECG Request Stat Y 07/22/24 02:38 Ordered Medical Decision Narrative: In summary, this patient is a 54-year-old female presenting to the Emergency Department for evaluation of lower chest/upper abdominal pain radiating around to her back that feels similar to prior pneumonia. Differential diagnoses considered include but are not limited to pneumonia, ACS, costochondritis, GERD, pancreatitis, aortic pathology. Ruling out the most morbid conditions drove assessment. It should be noted patient's history includes COPD, tobacco dependence which are not at goal therapy. This complicates all aspects of care by increasing patient's risk for morbidity. I reviewed patient's past medical records and noted previous evaluations by pulmonology as well as prior admission back in May. Patient was admitted for acute exacerbation of COPD and Pseudomonas pneumonia.. On exam, the patient is sitting upright in the chair and is uncomfortable appearing. She has some chest wall tenderness, bilateral basilar rhonchi and wheezes, mild epigastric abdominal tenderness. Workup included CBC, CMP, troponin, CT PE, CT abdomen pelvis with IV contrast, EKG. EKG obtained is nonischemic. Patient was initially given IV Toradol and oral Tylenol for symptomatic improvement as well as a DuoNeb, but she states that this did not help her pain. She was then given IV morphine and Zofran. Labs demonstrated hypokalemia, for which IV and oral placement were ordered as well as a 500 cc bolus of IV fluids. CBC and CMP otherwise reassuring. Patient present at the oncoming provider, Dr. Shankar, pending CT scans. Shankar: Upon my assumption of care patient is resting comfortably. She still complains of pain in the same distribution as when she arrived. I personally interpreted CT scans and appreciate posterior, inferior lung field changes which could be due to patient's recent infection with Pseudomonas pneumonia versus new developing infiltrate. Given her symptoms, I am going to treat this as a new pneumonia. I discussed this case with pharmacy, despite her recently having Levaquin they still believe this is the most appropriate medication for her. She received 1 dose of this in the ER. Patient continued receiving IV potassium for repletion. I had initially anticipated discharging this patient and had prescribed Levaquin for outpatient management, however patient's repeat troponin resulted and is slightly increased, now 0.02. Repeat ECG performed and personally interpreted demonstrates normal sinus rhythm, rate 78, borderline right axis, normal SC and QTc, no STEMI no dynamic changes compared to earlier ECG. Her persistent discomfort and increasing troponin are concerning for possible underlying cardiac etiology. I believe she requires admission for these concerns. I discussed this case with Dr. Hagen since patient continues to have discomfort and has a slightly increased troponin. I had also ordered blood cultures since patient previously had Pseudomonas bacteremia. These are pending at this time. Dr. Hagen graciously excepted this patient for admission Critical Care <Chantell Tam, - Last Filed: 07/21/24 23:32> Critical Care Time Critical Care Time: No
[2024-07-21] MEDS: MORPHINE 4MG/ML SYRINGE 4 MG IV (23:31)
[2024-07-21] MEDS: KCl 10mEq/100ml 100 ML 100 MEQ IV (23:31)
[2024-07-21] MEDS: ONDANSETRON 4MG/2ML VIAL 4 MG IV (23:31)
[2024-07-21] MEDS: POTASSIUM CHLORIDE 20MEQ TAB 40 MEQ PO (23:31)
[2024-07-21] MEDS: RINGERS SOLUTION,LACTATED 500 ML 999 ML IV (23:32)
--- NOTE | 2024-07-21 23:49 | PC.NURSE ---
Pt in ct scan via wheelchair
[2024-07-21] MEDS: IOPAMIDOL-370 (76%);100ML BOTTLE 70 ML IV (23:55)
[2024-07-21] MEDS: 0.9 % SODIUM CHLORIDE 50 ML VIAL IV (23:55)
[2024-07-21] MEDS: SODIUM CHLORIDE 0.9% 10ML SYR (RAD ONLY) 10 ML IV (23:55)
[2024-07-21 23:58] LABS: Eosinophils % 1 % (0-3); Lymphocytes % 9 % (10-50); Monocytes % 3 % (2-9); Neutrophils % 87 % (42-76); Platelet Estimate Normal; Stomatocytes 3+; Total Cells Counted 100
[2024-07-21 23:59] LABS: Hypochromasia 2+
[2024-07-22] VITALS (17 sets, daily range): BP systolic 93–140; BP diastolic 53–71; PULSE 68–94; RESP 9–20; TEMP 36.4–37.1; O2SAT 91–99
[2024-07-22] MEDS: levoFLOXacin 750 MG TABLET PO (01:49)
[2024-07-22 02:19] LABS: Troponin I 0.02 ng/ml (0.00-0.034)
--- NOTE | 2024-07-22 02:44 | ECG_ITS ---
APPROVED REPORT Exam: Resting ECG HR:78 bpm ECG Measurements Heart Rate 78 AXES OK 165 P 59 QRSd 94 QRS 104 QT 369 T 51 QTc 402 Conclusion SINUS RHYTHM RIGHT AXIS DEVIATION [QRS AXIS > 100] ABNORMAL ECG UNCONFIRMED REPORT Electronically signed by : OG GE, 07/22/2024 23:22:32
--- NOTE | 2024-07-22 03:15 | EXP.HP ---
History of Present Illness *Admission Date: 07/22/24 *Reason for visit:: SOB, chest/rib discomfort *History of present illness: 4-year-old with past medical history of Pseudomonas pneumonia admission 06/06 to 06/08 and follow-up appointment with Dr. Broderick 06/14, COPD on nocturnal/as needed oxygen, daily smoker, hypertension, hypothyroidism, restless leg syndrome. Patient presents to hospital complaining of 3 to 4 days chest/rib discomfort, shortness of breath, malaise and ataxia. Patient describes chest discomfort as 7/10, starting posterior lungs radiating to bilateral ribs, burning/sharp, worse with movement and better with rest, occurring with nausea and ataxia. States her breathing had improved after treatment of pseudomonal pneumonia in June, but worsened again 3 days ago. Denies history of CT, CVA. Also denies fevers, chills, known sick contacts, recent travel, vomiting, blurry vision, headaches. WBC 8.2 K3.1, troponin 0.01-> 0.02, CTA chest no pulmonary embolus, but signs of emphysema and acute versus subacute infection. CTA chest also showed right 2nd-4th subacute rib fractures. CT abdomen/pelvis showed possible, bile duct dilatation, but patient total bilirubin 0.3 at time of admission with normal transaminases. [facility] Disclaimer: The information contained in this section may have been updated after the patient was seen, as this information can be updated by other users. Medical History Exposure to respiratory syncytial virus (RSV) Foot fracture, right Chest wall injury Pneumonia Pseudomonas pneumonia Smoking greater than 30 pack years Acute respiratory failure with hypoxemia Pulmonary emphysema Abnormal findings on diagnostic imaging of heart and coronary circulation Left to right cardiac shunt Interatrial cardiac shunt Dyspnea Chest pain in adult Hypoxia Cough Hypothyroidism (~03/22/18) Epigastric pain Anorexia Early satiety Unexplained weight loss Interstitial cystitis Allergic rhinitis GERD (gastroesophageal reflux disease) Low back pain Edema Vitamin D deficiency Hypertension COPD (chronic obstructive pulmonary disease) Surgical History H/O: hysterectomy Family History Mother Family history of acute congestive heart failure Sister Cancer Other Family history of hyperlipidemia Family history of hypertension Social History Smoking Status: Current every day smoker tobacco type: cigarettes packs per day: 1 alcohol intake: never substance use type: former substance user, opiates and painkillers current occupational status: unemployed and disabled Travel in the last 8 weeks: None household members: spouse and family housing: house caffeine: Yes Have you lived/traveled outside US in past 30 days?: No Contact w/someone who lives/traveled outside US past 30 days?: No Exposure to someone with infectious disease in past 14 days?: No Do you have a fever (greater than 100.4 F or 38 C)?: No Have you tested positive for COVID-19: No Exposed to someone with COVID-19 in past 14 days?: No Do you have a sore throat?: No Do you have a cough?: Yes Do you have any weakness?: No Do you have any diarrhea?: No Are you experiencing any unusual bleeding?: No Do you have any muscle aches/pain?: No Do you have any abdominal pain?: No Are you experiencing loss of taste or smell?: No Other Medical History Have you received the Flu Vaccine for this season: No Have you received the Pneumonia Vaccine: No Review of Systems Review of Systems Review of systems:: pertinent systems reviewed and negative unless documented below Constitutional Constitutional: Reports system reviewed and no additional complaints, except as documented Meds Home Medications and Allergies Home Medications ?Medication ?Instructions ?Recorded ?Confirmed ?Type buprenorphine 8 mg-naloxone 2 mg 2 tab sublingual DAILY 08/19/19 06/14/24 History sublingual tablet tizanidine 4 mg tablet 4 mg PO TID muscle spasms 10/06/21 06/14/24 History cyanocobalamin (vitamin B-12) 1,000 mcg SQ MONTHLY 12/03/23 06/14/24 History 1,000 mcg/mL injection solution gabapentin 600 mg tablet 600 mg PO TID 12/03/23 06/14/24 History (Neurontin) latanoprost 0.005 % eye drops 1 drp Eye-Both HS 12/03/23 06/14/24 History syringe with needle 3 mL 25 gauge #1 ea 12/11/23 06/14/24 History x 1 (BD Luer-Kaylin Syringe) amitriptyline 25 mg tablet 25 mg PO HS 12/27/23 06/14/24 History estradiol 1 mg tablet (Estrace) 1 mg PO DAILY 01/23/24 06/14/24 History aspirin 81 mg tablet,delayed 81 mg PO DAILY #30 tabs 01/29/24 06/14/24 Rx release (Adult Low Dose Aspirin) bupropion HCl 100 mg tablet,12 hr 100 mg PO BID #180 ea 03/01/24 06/14/24 Rx sustained-release isosorbide mononitrate 30 mg 30 mg PO DAILY #30 tabs 04/25/24 06/14/24 Rx tablet,extended release 24 hr albuterol sulfate 90 mcg/actuation 2 puff inhalation Q4H PRN 05/15/24 06/14/24 History aerosol inhaler Shortness Of Breath Or Wheezing alendronate 70 mg tablet 70 mg PO WEEKLY 05/15/24 06/14/24 History calcium 600 mg (as 1 tab PO DAILY 05/15/24 06/14/24 History carbonate)-vitamin D3 10 mcg (400 unit) tablet carvedilol 3.125 mg tablet 3.125 mg PO BID 05/15/24 06/14/24 History cholecalciferol (vitamin D3) 25 25 mcg PO DAILY 05/15/24 06/14/24 History mcg (1,000 unit) tablet ergocalciferol (vitamin D2) 1,250 1,250 mcg PO WEEKLY 05/15/24 06/14/24 History mcg (50,000 unit) capsule furosemide 40 mg tablet 20 mg PO DAILY 05/15/24 06/14/24 History hydroxyzine pamoate 25 mg capsule 25 mg PO TID PRN Itching 05/15/24 06/14/24 History montelukast 10 mg tablet 10 mg PO PM 05/15/24 06/14/24 History omeprazole 20 mg capsule,delayed 20 mg PO DAILY 05/15/24 06/14/24 History release potassium chloride 10 mEq 10 meq PO BID 05/15/24 06/14/24 History capsule,extended release ropinirole 0.25 mg tablet 0.25 - 0.5 mg PO HS 05/15/24 06/14/24 History fluticasone fur. 100 mcg-umeclid 1 inh inhalation DAILY 30 days #60 05/17/24 06/14/24 Rx 62.5 mcg-vilant 25 mcg ea inhalat.powder (Trelegy Ellipta) lidocaine 5 % topical patch 1 patch topical 2100 #0 ea 05/17/24 06/14/24 Rx levothyroxine 137 mcg tablet 137 mcg PO DAILY 06/06/24 06/14/24 History ibuprofen 800 mg tablet 800 mg PO TID 06/07/24 06/14/24 History levofloxacin 750 mg tablet 750 mg PO DAILY 7 days #7 tabs 06/14/24 06/14/24 Rx levofloxacin 750 mg tablet 750 mg PO DAILY 6 days #6 tabs 07/22/24 Rx prednisone 10 mg tablet 10 mg PO DAILY 07/22/24 07/22/24 History New Prescriptions to Start Prescriptions: levofloxacin [place] Allergies Allergy/AdvReac Type Severity Reaction Status Date / Time cefaclor (From CECLOR) Allergy Unknown CAUSES Verified 06/14/24 10:17 YEAST INFECTION Sulfa (Sulfonamide Allergy Unknown I-RASH Verified 06/14/24 10:17 Antibiotics) (SULFA (SULFONAMIDE ANTIBIOTICS)) sulfamethoxazole (From Allergy Unknown I-RASH Verified 06/14/24 10:17 BACTRIM) trimethoprim (From BACTRIM) Allergy Unknown I-RASH Verified 06/14/24 10:17 Exam Data for Last 24 hours Vital signs and Labs for Last 24 Hours: Temp Pulse Resp BP Pulse Ox O2 Del Method 98.3 F 68 9 L 103/64 L 97 Room Air 07/21/24 21:10 07/22/24 02:00 07/22/24 02:00 07/22/24 02:00 07/22/24 02:00 07/21/24 21:10 Laboratory Results - last 24 hr 07/21/24 22:10: SARS-CoV-2 (PCR) Not detected, Influenza A Untype (PCR) Not detected, Influenza Type B (PCR) Not detected 07/21/24 22:15: WBC 8.2, RBC 3.90 L, Hgb 12.1 L, Hct 37.7, MCV 96.5, MCH 31.0, MCHC 32.1, RDW 13.5, Plt Count 345, MPV 7.8, Neut % (Auto) 85.2 H, Lymph % (Auto) 10.2, [place] % (Auto) 3.4, Eos % (Auto) 0.5, Baso % (Auto) 0.7, Neut # (Auto) 7.0, Lymph # (Auto) 0.8, [place] # (Auto) 0.3, Eos # (Auto) 0.0, Baso # (Auto) 0.1, Total Counted 100, Neutrophils % (Manual) 87 H, Lymphocytes % (Manual) 9 L, Monocytes % (Manual) 3, Eosinophils % (Manual) 1, Platelet Estimate Normal, Hypochromasia 2+, Stomatocytes 3+, Sodium 137, Potassium 3.1 L, Chloride 102, Carbon Dioxide 32 H, Anion Gap 6.1, BUN 6 L, Creatinine 0.50 L, Estimated Creat Clear 114, Estimated GFR 128, Est GFR ( Amer) 155, Glucose 127 H, Calcium 8.7, Total Bilirubin 0.3, AST 26, ALT 14, Alkaline Phosphatase 106, Troponin I < 0.01, Total Protein 6.9, Albumin 3.8, Globulin 3.1, Albumin/Globulin Ratio 1.2 07/22/24 01:53: Troponin I 0.02 I & O for Last 24 hours: Intake & Output 07/19/24 07/20/24 07/21/24 07/22/24 23:59 23:59 23:59 23:59 Weight 56.699 kg Constitutional Constitutional: mild distress and chronically ill appearing *Routine HEENT Exam Head: Present normocephalic Eye: Present EOMI ENT: Present mucous membranes moist *Routine Neck Exam Neck: Present supple and full ROM *Routine Respiratory Exam Respiratory: Present CTA bilaterally, prolonged expiratory phase, wheezes, distant breath sounds and diminished air movement *Routine Cardiovascular Exam Cardiovascular: Present RRR, Normal S1 and Normal S2 *Routine Abdominal Exam Abdominal: Present soft and normoactive bowel sounds *Routine Rectal Exam Rectal:: deferred *Routine Genitalia Exam Genitalia:: deferred *Routine Extremities Exam Extremities: Present full ROM *Routine Skin Exam Skin: Present intact and erythema *Routine Neurological Exam Neurological: Present alert, oriented X3 and CN II-XII intact Assessment and Plan *Assessment and plan (1) Chest pain: Status: Acute Category: Medical Code(s): R07.9 - Chest pain, unspecified (2) Pseudomonas pneumonia: Status: Acute Category: Medical Code(s): J15.1 - Pneumonia due to Pseudomonas (3) Multifocal pneumonia: Status: Acute Category: Medical Code(s): J18.9 - Pneumonia, unspecified organism (4) Pulmonary emphysema: Status: Acute Category: Medical Code(s): J43.9 - Emphysema, unspecified (5) Acute exacerbation of chronic obstructive pulmonary disease: Status: Acute Category: Medical Code(s): J44.1 - Chronic obstructive pulmonary disease with (acute) exacerbation (6) Tobacco dependence: Status: Chronic Category: Medical Code(s): F17.200 - Nicotine dependence, unspecified, uncomplicated (7) Hypothyroidism: Status: Chronic Qualifiers: Hypothyroidism type: unspecified Qualified Code(s): E03.9 - Hypothyroidism, unspecified Category: Medical Code(s): E03.9 - Hypothyroidism, unspecified Plan 54-year-old with past medical history of Pseudomonas pneumonia admission 06/06 to 06/08 and follow-up appointment with Dr. Broderick 06/14, COPD on nocturnal/as needed oxygen, daily smoker, hypothyroidism, restless leg syndrome and hypertension. Patient presents to hospital complaining of 3 to 4 days chest/rib discomfort, shortness of breath, malaise and ataxia. WBC 8.2 K3.1, troponin 0.01-> 0.02, CTA chest no pulmonary embolus, but signs of emphysema and acute versus subacute infection. CTA chest also showed right 2nd-4th subacute rib fractures. Admitted to hospital for chest pain/ pneumonia workup. Problems as listed below: Lab/imaging reviewed at time of admission: ?CTA chest no pulmonary embolus, but signs of emphysema and acute versus subacute infection. CTA chest also showed right 2nd-4th subacute rib fractures. ?COVID/influenza nasopharyngeal PCR negative, blood cultures ordered in emergency room, I ordered respiratory nasopharyngeal PCR. ? NA 137, K3.1, CL 102, CO2 32, BUN 6, CR 0.5, GLU 127, total bili 0.3, AST 26, ALT 14, alk phos 106, WBC 8.2, Hgb 12.7. Troponin trends 0.01-> 0.02. I will repeat serial troponins, BMP, CBC, mag in AM. I will also check a BNP in AM. COPD exacerbation possibly secondary to pneumonia: ? Wheezes, prolonged expiratory phase noted on my exam in emergency room. Appears to be suffering from COPD exacerbation. DuoNebs 3 mL inhaled every 6 hours while awake, albuterol 2.5 mg inhaled every 4 hours as needed shortness of breath, oxygen to keep sats greater than 90%, Solu-Medrol 40 mg IV every 6 x 6 doses. IV antibiotics as listed in pneumonia section. Subacute versus acute pneumonia present on admission: ? Unsure whether CTA chest pneumonia findings are old versus new. Patient status post June 06 to June 08 admission for pneumonia. Given history of pseudomonal pneumonia, will admit patient on broad-spectrum antibiotics IV cefepime 1 g every 12, and vancomycin 1 g then pharmacy to dose. I ordered procalcitonin. Consult pulmonary given history of recent pseudomonal pneumonia. Subacute rib fractures right-sided 2nd-4th: ? Patient unaware of recent accidents or falls. Possibly occurred with coughing. PT/OT evaluation during hospitalization. tramadol 100 mg 3 times daily as needed moderate pain. Morphine 2 mg IV every 6 as needed severe pain. No signs of flail chest noted during my examination emergency room. Hypokalemia: 3.1 in emergency room. Will start potassium chloride 40 mEq every 4 x 2 doses. Possible biliary obstruction: ? CT abdomen/pelvis shows 10 mm common bile duct. Patient's total bilirubin 0.3 with normal transaminases. Will order MRCP to evaluate and if abnormal, then recommend gastroenterology consultation. Will repeat LFTs in AM. Chest pain: ? Probably secondary to rib fractures and COPD exacerbation. Patient denied history of CHF, but on Coreg, Imdur, furosemide as outpatient. 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 Troponins normal but trending upward. Reviewed records noting May 2024 echocardiogram done at this institution within normal limits with normal EF and diastolic function. Patient likely on beforementioned medications for hypertension not CHF. No reason to repeat echocardiogram given recent echocardiogram May 2024. Will continue troponin trend during admission. Cardiac monitoring. Consult cardiology for a.m. evaluation. Hypothyroidism: Levothyroxine 137 mcg p.o. daily Restless leg syndrome: Requip 0.25 p.o. nightly Hypertension: Carvedilol 3.125 p.o. twice daily, Lasix 20 mg p.o. daily, Imdur 30 mg p.o. daily, hydralazine 10 mg IV every 6 hours as needed SBP over 160 Daily smoker: Nicotine patch 21 mg transdermal every 24 as needed nicotine cravings PPx Lovenox subcutaneous CODE STATUS full FEN cardiac diet MDM Copa: Moderate, patient suffering from acute COPD exacerbation, subacute rib fractures, and acute chest pain. Data: High, see above. I spoke with the emergency room provider at length and agree that patient requires admission for chest pain, subacute rib fracture, and acute versus subacute pneumonia evaluation in conjunction with COPD exacerbation management. Risk: Moderate, I made decision to admit patient to hospital for treatment of beforementioned treatment modalities. Patient requiring IV Solu-Medrol, increased supplemental oxygen, telemetry monitoring to rule out ACS given rising troponin trend. 35 minutes of total care time spent on patient by Dr. Hagen 07/22/2024
[2024-07-22] MEDS: CEFEPIME HCL 2 GM in 0.9 % SODIUM CHLORIDE 100 ML IV ×3 (03:49→20:07)
[2024-07-22 04:24] LABS: Anion Gap 6.1 mEq/L (5-15); Blood Urea Nitrogen 4 mg/dl (7-17); Calcium 8.7 mg/dl (8.4-10.2); Carbon Dioxide 34 mmol/L (22.0-30.0); Chloride 100 mmol/L (98-107); Chol/HDL Ratio 2.5 (1-3.5); Cholesterol 168 mg/dl (140-200); Creatinine Clearance Estimated 95 mL/min (50-200); Estimated Glomerular Filt Rate 104 ml/min (>60); GFR (African American) 126 ML/MIN (>60); Glucose 159 mg/dl (74-100); HDL Cholesterol 66 mg/dl (40-60); Magnesium 1.8 mg/dl (1.6-2.3); Potassium 4.1 mmoL/L (3.5-5.1); Sodium 136 mmol/L (136-145); Triglycerides 123 mg/dl (30-150); VLDL Cholesterol 25 mg/dL (0-40)
[2024-07-22 04:29] LABS: Basophils # 0.1 K/mm3 (0-0.2); Basophils % 1.1 % (0.1-2.0); Eosinophils # 0.1 K/mm3 (0.0-0.4); Eosinophils % 1.3 % (0.1-12.0); Hematocrit 39.1 % (37.0-47.0); Hemoglobin 12.5 g/dL (12.2-16.2); Lymphocytes # 1.6 K/mm3 (0.7-4.5); Mean Corpuscular HGB Conc 31.9 g/dL (31.8-35.4); Mean Corpuscular Hemoglobin 31.5 pg (27.0-31.2); Mean Corpuscular Volume 98.7 fl (81-99); Mean Platelet Volume 7.6 fl (7.4-10.4); Monocytes # 0.5 K/mm3 (0.1-1.0); Monocytes % 6.3 % (1.7-9.3); Neutrophils # 5.3 K/mm3 (1.8-7.8); Neutrophils % 70.3 % (37.0-80.0); Platelet Count 369 K/mm3 (142-424); Red Blood Count 3.96 M/mm3 (4.20-5.40); Red Cell Distribution Width 13.4 % (11.5-17.5); White Blood Count 7.5 K/mm3 (4.8-10.8)
[2024-07-22] MEDS: METHYLPREDNISOLONE SOD SUCC 40MG VIAL 40 MG IV ×2 (04:29→10:02)
[2024-07-22 04:34] LABS: Direct LDL Cholesterol 68.28 mg/dL (100-129)
[2024-07-22 04:39] LABS: Troponin I < 0.01 ng/ml (0.00-0.034)
[2024-07-22 04:48] LABS: Alanine Aminotransferase 15 U/L (12-78); Albumin Level 3.7 g/dl (3.5-5.0); Alkaline Phosphatase 106 U/L (38-126); Aspartate Amino Transferase 28 U/L (14-36); Bilirubin,Direct 0.3 mg/dl (0.0-0.4); Bilirubin,Total 0.3 mg/dl (0.2-1.3); Total Protein,Serum 6.8 g/dl (6.3-8.2)
--- NOTE | 2024-07-22 04:53 | PC.NURSE ---
spoke with Destin renteria regarding vancomycin dosing, 1g vanc to be given once
[2024-07-22 04:57] LABS: NT Pro Brain Natriuretic Pep. 401 pg/mL (0-125)
[2024-07-22] MEDS: VANCOMYCIN HCL 1,000 MG in 0.9 % SODIUM CHLORIDE 250 ML 125 MG IV ×2 (05:11→17:02)
[2024-07-22 05:29] LABS: Procalcitonin 0.042 ng/mL (0.0-2.0)
[2024-07-22] MEDS: IPRATROPIUM/ALBUTEROL 3 ML NEB IH ×2 (05:57→19:00)
--- NOTE | 2024-07-22 05:57 | PC.NURSE ---
Upon entering the room Patient is on Room Air SPO2 80%. Patient states she wears 3 LPM NC at night due to oxygen dropping. SPO2 91% on 3 LPM
--- NOTE | 2024-07-22 07:49 | P.CONPHA_ITS ---
Pharmacy Consult Date: 07/22/24 Time: 07:52 Referring provider: DR. GONZALEZ Reason for Consult:: VANCOMYCIN DOSING Allergies Allergy/AdvReac Type Severity Reaction Status Date / Time Sulfa (Sulfonamide Allergy Unknown I-RASH Verified 06/14/24 10:17 Antibiotics) (SULFA (SULFONAMIDE ANTIBIOTICS)) sulfamethoxazole (From Allergy Unknown I-RASH Verified 06/14/24 10:17 BACTRIM) trimethoprim (From BACTRIM) Allergy Unknown I-RASH Verified 06/14/24 10:17 cefaclor (From CECLOR) AdvReac Unknown CAUSES Verified 07/22/24 07:38 YEAST INFECTION Home Medications ?Medication ?Instructions ?Recorded ?Confirmed ?Type buprenorphine 8 mg-naloxone 2 mg 2 tab sublingual DAILY 08/19/19 07/22/24 History sublingual tablet tizanidine 4 mg tablet 4 mg PO TID muscle spasms 10/06/21 07/22/24 History cyanocobalamin (vitamin B-12) 1,000 mcg SQ MONTHLY 12/03/23 07/22/24 History 1,000 mcg/mL injection solution gabapentin 600 mg tablet 600 mg PO TID 12/03/23 07/22/24 History (Neurontin) latanoprost 0.005 % eye drops 1 drp Eye-Both HS 12/03/23 07/22/24 History syringe with needle 3 mL 25 gauge #1 ea 12/11/23 06/14/24 History x 1 (BD Luer-Kaylin Syringe) amitriptyline 25 mg tablet 25 mg PO HS 12/27/23 07/22/24 History estradiol 1 mg tablet (Estrace) 1 mg PO DAILY 01/23/24 07/22/24 History aspirin 81 mg tablet,delayed 81 mg PO DAILY #30 tabs 01/29/24 07/22/24 Rx release (Adult Low Dose Aspirin) isosorbide mononitrate 30 mg 30 mg PO DAILY #30 tabs 04/25/24 07/22/24 Rx tablet,extended release 24 hr albuterol sulfate 90 mcg/actuation 2 puff inhalation Q4H PRN 05/15/24 07/22/24 History aerosol inhaler Shortness Of Breath Or Wheezing alendronate 70 mg tablet 70 mg PO WEEKLY 05/15/24 07/22/24 History calcium 600 mg (as 1 tab PO DAILY 05/15/24 07/22/24 History carbonate)-vitamin D3 10 mcg (400 unit) tablet carvedilol 3.125 mg tablet 3.125 mg PO BID 05/15/24 07/22/24 History cholecalciferol (vitamin D3) 25 25 mcg PO DAILY 05/15/24 07/22/24 History mcg (1,000 unit) tablet ergocalciferol (vitamin D2) 1,250 1,250 mcg PO WEEKLY 05/15/24 07/22/24 History mcg (50,000 unit) capsule furosemide 40 mg tablet 20 mg PO DAILY 05/15/24 07/22/24 History hydroxyzine pamoate 25 mg capsule 25 mg PO TID PRN Itching 05/15/24 07/22/24 History montelukast 10 mg tablet 10 mg PO PM 05/15/24 07/22/24 History omeprazole 20 mg capsule,delayed 20 mg PO DAILY 05/15/24 07/22/24 History release potassium chloride 10 mEq 10 meq PO BID 05/15/24 07/22/24 History capsule,extended release ropinirole 0.25 mg tablet 0.25 - 0.5 mg PO HS 05/15/24 07/22/24 History fluticasone fur. 100 mcg-umeclid 1 inh inhalation DAILY 30 days #60 05/17/24 07/22/24 Rx 62.5 mcg-vilant 25 mcg ea inhalat.powder (Trelegy Ellipta) lidocaine 5 % topical patch 1 patch topical 2100 #0 ea 05/17/24 07/22/24 Rx levothyroxine 137 mcg tablet 137 mcg PO DAILY 06/06/24 07/22/24 History ibuprofen 800 mg tablet 800 mg PO TID 06/07/24 07/22/24 History levofloxacin 750 mg tablet 750 mg PO DAILY 6 days #6 tabs 07/22/24 Rx prednisone 10 mg tablet 10 mg PO DAILY 07/22/24 07/22/24 History New Prescriptions to Start [facility]: 1.7 m Weight: 56.699 kg Laboratory Results:: Laboratory Results - last 24 hr 07/21/24 22:10: SARS-CoV-2 (PCR) Not detected, Influenza A Untype (PCR) Not detected, Influenza Type B (PCR) Not detected 07/21/24 22:15: WBC 8.2, RBC 3.90 L, Hgb 12.1 L, Hct 37.7, MCV 96.5, MCH 31.0, MCHC 32.1, RDW 13.5, Plt Count 345, MPV 7.8, Neut % (Auto) 85.2 H, Lymph % (Auto) 10.2, [place] % (Auto) 3.4, Eos % (Auto) 0.5, Baso % (Auto) 0.7, Neut # (Auto) 7.0, Lymph # (Auto) 0.8, [place] # (Auto) 0.3, Eos # (Auto) 0.0, Baso # (Auto) 0.1, Total Counted 100, Neutrophils % (Manual) 87 H, Lymphocytes % (Manual) 9 L, Monocytes % (Manual) 3, Eosinophils % (Manual) 1, Platelet Estimate Normal, Hypochromasia 2+, Stomatocytes 3+, Sodium 137, Potassium 3.1 L, Chloride 102, Carbon Dioxide 32 H, Anion Gap 6.1, BUN 6 L, Creatinine 0.50 L, Estimated Creat Clear 114, Estimated GFR 128, Est GFR ( Amer) 155, Glucose 127 H, Calcium 8.7, Total Bilirubin 0.3, AST 26, ALT 14, Alkaline Phosphatase 106, Troponin I < 0.01, Total Protein 6.9, Albumin 3.8, Globulin 3.1, Albumin/Globulin Ratio 1.2 07/22/24 01:53: Troponin I 0.02 07/22/24 04:05: WBC 7.5, RBC 3.96 L, Hgb 12.5, Hct 39.1, MCV 98.7, MCH 31.5 H, MCHC 31.9, RDW 13.4, Plt Count 369, MPV 7.6, Neut % (Auto) 70.3, Lymph % (Auto) 21.0, [place] % (Auto) 6.3, Eos % (Auto) 1.3, Baso % (Auto) 1.1, Neut # (Auto) 5.3, Lymph # (Auto) 1.6, [place] # (Auto) 0.5, Eos # (Auto) 0.1, Baso # (Auto) 0.1, Sodium 136, Potassium 4.1 D, Chloride 100, Carbon Dioxide 34 H, Anion Gap 6.1, BUN 4 L D, Creatinine 0.60, Estimated Creat Clear 95, Estimated GFR 104, Est GFR ( Amer) 126, Glucose 159 H D, Calcium 8.7, Magnesium 1.8, Total Bilirubin 0.3, Direct Bilirubin 0.3, Conjugated Bilirubin 0.0, Indirect Bilirubin 0.0, Unconjugated Bilirubin 0.0, AST 28, ALT 15, Alkaline Phosphatase 106, Troponin I < 0.01, NT-Pro-B Natriuret Pep 401 H, Total Protein 6.8, Albumin 3.7, Triglycerides 123, Cholesterol 168, LDL Cholesterol Direct 68.28 L, VLDL Cholesterol 25, HDL Cholesterol 66 H, Cholesterol/HDL Ratio 2.5, Procalcitonin 0.042 Medical History: Medical History (Updated 07/22/24 @ 00:59 by Lupillo Shankar MD) Exposure to respiratory syncytial virus (RSV) Foot fracture, right Chest wall injury Pneumonia Pseudomonas pneumonia Smoking greater than 30 pack years Acute respiratory failure with hypoxemia Pulmonary emphysema Abnormal findings on diagnostic imaging of heart and coronary circulation Left to right cardiac shunt Interatrial cardiac shunt Dyspnea Chest pain in adult Hypoxia Cough Hypothyroidism (~03/22/18) Epigastric pain Anorexia Early satiety Unexplained weight loss Interstitial cystitis Allergic rhinitis GERD (gastroesophageal reflux disease) Low back pain Edema Vitamin D deficiency Hypertension COPD (chronic obstructive pulmonary disease) Assessment and Plan Assessment and plan all Dx Assessment and Plan for all problems:: Pharmacokinetic dosing service = Objective: Patient: Floor: Age: 54 yo Serum creatinine: 0.6 mg/dL Height: 66.9 Inches Weight (kg): 57 Assessment: IBW (kg): 61.37 Dosing wt(kg): 57 Estimated Creatinine clearance (ml/min): 95.3 CRCL method: Cockcroft and Gault using ibw(default). Drug selected: Vancomycin Loading dose (mg): 0 Vd (liters): 45.6 (factor used: 0.8 L/kg) Clem (hr-1): 0.083 Half life (hrs): 8.35 Recommended dose: 1000 mg Interval: 12 hrs Infusion time (hrs): 2.0 Predicted peak (mcg/mL): 32.0 Predicted trough (mcg/mL): 13.95 Total body weight is being used for vancomycin dosing. Recommendations: Give Vancomycin 1000 mg q 12 hrs with an expected Cpeak of 32.0 mcg/ml and an expected Ctrough of 13.95 mcg/ml ----Vanco only - ignore for aminoglycosides----- CLvanco= 3.78 L/hr AUC 0-24 /CHER Data: CHER 0.5 mcg/mL: AUC/CHER: 1058.2 CHER 1.0 mcg/mL: AUC/CHER: 529.1 --------- CHER 1.5 mcg/mL: AUC/CHER: 352.7 CHER 2.0 mcg/mL: AUC/CHER: 264.6
--- NOTE | 2024-07-22 08:11 | PC.NURSE ---
MRI CALLED AND STATED THEY WOULD BE UP TO GET HER ABOUT LUNCH TIME.
--- NOTE | 2024-07-22 08:53 | HMH.PTEV ---
Physical Therapy Evaluation Rehab PT IP Evaluation Start: 07/22/24 03:46 Freq: ONCE Status: Active Protocol: Document 07/22/24 08:47 SKYLAR (Rec: 07/22/24 08:53 SKYLAR [id number]) Subjective/History History History Per H&P: 54-year-old with past medical history of Pseudomonas pneumonia admission 06/06 to 06/08 and follow-up appointment with Dr. Broderick 06/14, COPD on nocturnal/as needed oxygen, daily smoker, hypertension, hypothyroidism, restless leg syndrome. Patient presents to hospital complaining of 3 to 4 days chest/rib discomfort, shortness of breath, malaise and ataxia. Patient describes chest discomfort as 7/10, starting posterior lungs radiating to bilateral ribs, burning/sharp, worse with movement and better with rest, occurring with nausea and ataxia. States her breathing had improved after treatment of pseudomonal pneumonia in June, but worsened again 3 days ago. Denies history of [place], CVA. Also denies fevers, chills, known sick contacts, recent travel, vomiting, blurry vision, headaches. WBC 8.2 K3.1, troponin 0.01-> 0. 02, CTA chest no pulmonary embolus, but signs of emphysema and acute versus subacute infection. CTA chest also showed right 2nd-4th subacute rib fractures. CT abdomen/pelvis showed possible , bile duct dilatation, but patient total bilirubin 0.3 at time of admission with normal transaminases. Subjective Subjective Pt lives at home with her in a single-story home with 0 NAIN. IND with all mobility prior to admission without use of AD. Still driving prior to admission. New diagnosis of cancer in past 12 No months? Rehab PT IP Eval Objective Appearance Patient Behavior Appropriate,Cooperative Patient Orientation Person,Place,Situation Difficulty following instructions none Speech Pattern Clear Ambulation Patient Able to Ambulate Yes Ambulation Observation IP General Gait Pattern Observation No Deviations/Normal Ambulation Distance (feet) 20 Ambulation Assistive Device None Ambulation Ability Supervision/Stand by Balance Ability to Arise Able, uses arms to help Sitting Balance Steady, safe Standing Balance Steady, wide stance Dynamic Sitting Balance Ability Good Dynamic Standing Balance Ability Good Transfers Bed Transfer Ability Independent Sit to Stand Bed Transfer Ability Independent Rehab PT IP prob,goals,plan Problems Date of Evaluation: 07/22/24 Rehab Potential Rehab Potential Innapropriate for Skilled Therapy Discharge Plan PT Discharge Plan Pt is IND/SUP with all mobility without AD use. Pt is not appropriate for skilled acute care PT at this time d/t mobility being at baseline/ IND. Eval Complexity Eval Charge Codes 26990 - Moderate Complexity PHYSICIAN CERTIFICATION: I certify the specified therapy services for Erinn Nunez are required, authorized, and reviewed every 30 days.
--- NOTE | 2024-07-22 09:02 | HMH.PHAINT1 ---
Pharmacy Intervention Comments: home medications verified using list from outpatient pharmacy
--- NOTE | 2024-07-22 09:49 | P.CONS_ITS ---
History of Present Illness History of present illness: Erinn Guerra is a 54-year-old female greater than [id number] smoking history, connective tissue disorder/rheumatoid arthritis, following with rheumatology prior history of COPD Pseudomonas pneumonia presented to the ER complaining of worsening respiratory distress and chest discomfort and shortness of breath, pulmonary was called for further evaluation and management. At baseline on [facility] Disclaimer: The information contained in this section may have been updated after the patient was seen, as this information can be updated by other users. Medical History Exposure to respiratory syncytial virus (RSV) Foot fracture, right Chest wall injury Pneumonia Pseudomonas pneumonia Smoking greater than 30 pack years Acute respiratory failure with hypoxemia Pulmonary emphysema Abnormal findings on diagnostic imaging of heart and coronary circulation Left to right cardiac shunt Interatrial cardiac shunt Dyspnea Chest pain in adult Hypoxia Cough Hypothyroidism (~03/22/18) Epigastric pain Anorexia Early satiety Unexplained weight loss Interstitial cystitis Allergic rhinitis GERD (gastroesophageal reflux disease) Low back pain Edema Vitamin D deficiency Hypertension COPD (chronic obstructive pulmonary disease) Surgical History H/O: hysterectomy Family History Mother Family history of acute congestive heart failure Sister Cancer Other Family history of hyperlipidemia Family history of hypertension Social History (Updated 07/22/24 @ 05:40 by Olya Mina RN) Smoking Status: Current every day smoker tobacco type: cigarettes packs per day: 1 alcohol intake: never substance use type: former substance user, opiates and painkillers current occupational status: unemployed and disabled Travel in the last 8 weeks: None household members: spouse and family housing: house caffeine: Yes Have you lived/traveled outside [place] in past 30 days?: No Contact w/someone who lives/traveled outside US past 30 days?: No Exposure to someone with infectious disease in past 14 days?: No Do you have a fever (greater than 100.4 F or 38 C)?: No Have you tested positive for COVID-19: No Exposed to someone with COVID-19 in past 14 days?: No Do you have a sore throat?: No Do you have a cough?: Yes Do you have any weakness?: No Are you experiencing any nausea/vomitting?: No Do you have any diarrhea?: No Are you experiencing any unusual bleeding?: No Do you have any muscle aches/pain?: No Do you have any abdominal pain?: No Are you experiencing loss of taste or smell?: No Review of Systems Constitutional Constitutional: Denies anorexia, Denies body ache(s), Reports fatigue, Reports lethargy and Reports weakness Eyes Eyes: Denies eye discharge, Denies dry eyes, Denies irritation and Denies itchy eyes ENT Ears, Nose, Mouth, and Throat: Denies epistaxis, Denies facial pain, Denies lip swelling and Denies throat swelling *Cardiovascular Cardiovascular: Reports dyspnea and Reports dyspnea on exertion *Respiratory Respiratory: Denies change in phlegm color, Reports chest congestion, Reports cough, Reports dyspnea, Reports dyspnea on exertion, Reports excessive phlegm production, Denies hemoptysis, Denies pain on inspiration, Denies pain with cough and Reports wheezing *Gastrointestinal Gastrointestinal: Denies abdominal pain, Denies belching and Denies cramping *Musculoskeletal Musculoskeletal: Reports back pain, Reports myalgias and Reports other (No small joint swelling or Pain) *Neurologic Neurologic: Reports weakness Psychiatric Psychiatric: Denies homicidal ideation and Denies suicidal ideation Endocrine Endocrine: Reports fatigue and Denies heat intolerance Hematologic/Lymphatic Hematologic/Lymphatic: Denies easy bleeding and Denies lymphadenopathy Allergic/Immunologic Allergic/Immunologic: Denies itchy eyes, Denies lip swelling, Denies throat swelling and Reports wheezing Pulmonology Exam Inpatient Vital signs and Labs for Last 24 Hours: Temp Pulse Resp BP Pulse Ox O2 Del Method O2 Flow Rate 97.6 F 72 18 101/57 L 98 Nasal Cannula 3 07/22/24 07:41 07/22/24 07:41 07/22/24 07:41 07/22/24 07:41 07/22/24 07:41 07/22/24 07:41 07/22/24 07:41 Laboratory Results - last 24 hr 07/21/24 22:10: SARS-CoV-2 (PCR) Not detected, Influenza A Untype (PCR) Not detected, Influenza Type B (PCR) Not detected 07/21/24 22:15: WBC 8.2, RBC 3.90 L, Hgb 12.1 L, Hct 37.7, MCV 96.5, MCH 31.0, MCHC 32.1, RDW 13.5, Plt Count 345, MPV 7.8, Neut % (Auto) 85.2 H, Lymph % (Auto) 10.2, Shackelford % (Auto) 3.4, Eos % (Auto) 0.5, Baso % (Auto) 0.7, Neut # (Auto) 7.0, Lymph # (Auto) 0.8, [place]ackelford # (Auto) 0.3, Eos # (Auto) 0.0, Baso # (Auto) 0.1, Total Counted 100, Neutrophils % (Manual) 87 H, Lymphocytes % (Manual) 9 L, Monocytes % (Manual) 3, Eosinophils % (Manual) 1, Platelet Estimate Normal, Hypochromasia 2+, Stomatocytes 3+, Sodium 137, Potassium 3.1 L, Chloride 102, Carbon Dioxide 32 H, Anion Gap 6.1, BUN 6 L, Creatinine 0.50 L, Estimated Creat Clear 114, Estimated GFR 128, Est GFR ( Amer) 155, G lucose 127 H, Calcium 8.7, Total Bilirubin 0.3, AST 26, ALT 14, Alkaline Phosphatase 106, Troponin I < 0.01, Total Protein 6.9, Albumin 3.8, Globulin 3.1, Albumin/Globulin Ratio 1.2 07/22/24 01:53: Troponin I 0.02 07/22/24 04:05: WBC 7.5, RBC 3.96 L, Hgb 12.5, Hct 39.1, MCV 98.7, MCH 31.5 H, MCHC 31.9, RDW 13.4, Plt Count 369, MPV 7.6, Neut % (Auto) 70.3, Lymph % (Auto) 21.0, Shackelford % (Auto) 6.3, Eos % (Auto) 1.3, Baso % (Auto) 1.1, Neut # (Auto) 5.3, Lymph # (Auto) 1.6, Shackelford # (Auto) 0.5, Eos # (Auto) 0.1, Baso # (Auto) 0.1, Sodium 136, Potassium 4.1 D, Chloride 100, Carbon Dioxide 34 H, Anion Gap 6.1, BUN 4 L D, Creatinine 0.60, Estimated Creat Clear 95, Estimated GFR 104, Est GFR ( Amer) 126, Glucose 159 H D, Calcium 8.7, Magnesium 1.8, Total Bilirubin 0.3, Direct Bilirubin 0.3, Conjugated Bilirubin 0.0, Indirect Bilirubin 0.0, Unconjugated Bilirubin 0.0, AST 28, ALT 15, Alkaline Phosphatase 106, Troponin I < 0.01, NT-Pro-B Natriuret Pep 401 H, Total Protein 6.8, Albumin 3.7, Triglycerides 123, Cholesterol 168, LDL Cholesterol Direct 68.28 L, VLDL Cholesterol 25, HDL Cholesterol 66 H, Cholesterol/HDL Ratio 2.5, Procalcitonin 0.042 I & O for Labs for Last 24 Hours: Intake & Output 07/19/24 07/20/24 07/21/24 07/22/24 23:59 23:59 23:59 23:59 Output Total 0 / 0 Balance 0 / 0 Weight 125 lb 125 lb Microbiology Reports for the Last 24 Hours: Microbiology 05/15/24 02:00 Sputum - Expectorated Sputum Gram Stain - Final Constitutional: Present moderate distress Head: Present normocephalic and atraumatic ENT: Present normal exam, normal oropharynx and mucous membranes moist Neck: Present normal inspection and full ROM Respiratory: Present respiratory distress, rhonchi and able to speak in complete sentences; Absent wheezes Comment:: Rt chest wall tenderness Cardiac: Present S1/S2, Tachycardia and radial pulses present GI: Present soft and distention; Absent tenderness or guarding Rectal (female): Present deferred (female): Present deferred Skin: Present intact; Absent cyanosis or jaundice Neuro: Present alert, awake and oriented x 3 Extremities: Present normal inspection; Absent clubbing or cyanosis Psychiatric: Present normal affect and cooperative Meds Home Medications and Allergies Home Medications ?Medication ?Instructions ?Recorded ?Confirmed ?Type buprenorphine 8 mg-naloxone 2 mg 2 tab sublingual DAILY 08/19/19 07/22/24 History sublingual tablet tizanidine 4 mg tablet 4 mg PO TID 10/06/21 07/22/24 History cyanocobalamin (vitamin B-12) 1,000 mcg SQ MONTHLY 12/03/23 07/22/24 History 1,000 mcg/mL injection solution gabapentin 600 mg tablet 600 mg PO TID 12/03/23 07/22/24 History (Neurontin) latanoprost 0.005 % eye drops 1 drp Eye-Both HS 12/03/23 07/22/24 History syringe with needle 3 mL 25 gauge #1 ea 12/11/23 06/14/24 History x 1 (BD Luer-Kaylin Syringe) amitriptyline 25 mg tablet 25 mg PO HS 12/27/23 07/22/24 History estradiol 1 mg tablet (Estrace) 1 mg PO DAILY 01/23/24 07/22/24 History aspirin 81 mg tablet,delayed 81 mg PO DAILY #30 tabs 01/29/24 07/22/24 Rx release (Adult Low Dose Aspirin) isosorbide mononitrate 30 mg 30 mg PO DAILY #30 tabs 04/25/24 07/22/24 Rx tablet,extended release 24 hr albuterol sulfate 90 mcg/actuation 2 puff inhalation Q4H PRN 05/15/24 07/22/24 History aerosol inhaler Shortness Of Breath Or Wheezing alendronate 70 mg tablet 70 mg PO WEEKLY 05/15/24 07/22/24 History calcium 600 mg (as 1 tab PO DAILY 05/15/24 07/22/24 History carbonate)-vitamin D3 10 mcg (400 unit) tablet carvedilol 3.125 mg tablet 3.125 mg PO BID 05/15/24 07/22/24 History cholecalciferol (vitamin D3) 25 25 mcg PO DAILY 05/15/24 07/22/24 History mcg (1,000 unit) tablet ergocalciferol (vitamin D2) 1,250 1,250 mcg PO WEEKLY 05/15/24 07/22/24 History mcg (50,000 unit) capsule furosemide 40 mg tablet 20 mg PO DAILY 05/15/24 07/22/24 History hydroxyzine pamoate 25 mg capsule 25 mg PO TID PRN Itching 05/15/24 07/22/24 History montelukast 10 mg tablet 10 mg PO PM 05/15/24 07/22/24 History omeprazole 20 mg capsule,delayed 20 mg PO DAILY 05/15/24 07/22/24 History release potassium chloride 10 mEq 10 meq PO BID 05/15/24 07/22/24 History capsule,extended release ropinirole 0.25 mg tablet 0.25 - 0.5 mg PO HS 05/15/24 07/22/24 History fluticasone fur. 100 mcg-umeclid 1 inh inhalation DAILY 30 days #60 05/17/24 07/22/24 Rx 62.5 mcg-vilant 25 mcg ea inhalat.powder (Trelegy Ellipta) lidocaine 5 % topical patch 1 patch topical 2100 #0 ea 05/17/24 07/22/24 Rx levothyroxine 137 mcg tablet 137 mcg PO DAILY 06/06/24 07/22/24 History ibuprofen 800 mg tablet 800 mg PO TID 06/07/24 07/22/24 History levofloxacin 750 mg tablet 750 mg PO DAILY 6 days #6 tabs 07/22/24 Rx prednisone 10 mg tablet 10 mg PO DAILY 07/22/24 07/22/24 History New Prescriptions to Start Prescriptions: levofloxacin [facility] Allergies Allergy/AdvReac Type Severity Reaction Status Date / Time Sulfa (Sulfonamide Allergy Unknown I-RASH Verified 06/14/24 10:17 Antibiotics) (SULFA (SULFONAMIDE ANTIBIOTICS)) sulfamethoxazole (From Allergy Unknown I-RASH Verified 06/14/24 10:17 BACTRIM) trimethoprim (From BACTRIM) Allergy Unknown I-RASH Verified 06/14/24 10:17 cefaclor (From CECLOR) AdvReac Unknown CAUSES Verified 07/22/24 07:38 YEAST INFECTION Results Laboratory Findings 07/22/24 04:05 07/22/24 04:05 Abnormal lab findings: Abnormal Labs 07/21/24 07/22/24 22:15 04:05 RBC 3.90 L 3.96 L Hgb 12.1 L MCH 31.5 H Neut % (Auto) 85.2 H Neutrophils % (Manual) 87 H Lymphocytes % (Manual) 9 L Potassium 3.1 L Carbon Dioxide 32 H 34 H BUN 6 L 4 L D Creatinine 0.50 L Glucose 127 H 159 H D NT-Pro-B Natriuret Pep 401 H LDL Cholesterol Direct 68.28 L HDL Cholesterol 66 H Assessment and Plan *Assessment and plan (1) Acute exacerbation of chronic obstructive pulmonary disease: Status: Acute Category: Medical Code(s): J44.1 - Chronic obstructive pulmonary disease with (acute) exacerbation (2) Chest pain: Status: Acute Category: Medical Code(s): R07.9 - Chest pain, unspecified (3) Pseudomonas pneumonia: Status: Acute Category: Medical Code(s): J15.1 - Pneumonia due to Pseudomonas (4) Acute and chronic respiratory failure: Status: Acute Category: Medical Code(s): J96.20 - Acute and chronic respiratory failure, unspecified whether with hypoxia or hypercapnia Plan Erinn Guerra is a 54-year-old female greater than [id number] smoking history, connective tissue disorder/rheumatoid arthritis, following with rheumatology prior history of COPD Pseudomonas pneumonia presented to the ER complaining of worsening respiratory distress and chest discomfort and shortness of breath, pulmonary was called for further evaluation and management. At baseline on RA Afebrile. Hemodynamically stable. No evidence of leukocytosis. COVID-19 and flu PCR panel negative. CTA upon admission no pulmonary embolism. Significant emphysematous changes as prior. The lower lobe airspace disease / fibrotic appears significantly improved from prior. Old rib fractures noted. On examination severe respiratory distress. No significant wheezing noted. Plan: Continue oxygen supplementation to maintain O2 saturation goal 90% and above. Currently doing 2 to 4 L nasal cannula Recommend to wean antibiotics to levofloxacin pending culture results from pulmonary standpoint DuoNebs every 6 hours along with Pulmicort every 12 scheduled Lasix 40 mg IV once. Receiving 20 oral twice daily. Prednisone 40 mg daily # Thank you for involving pulmonary in this patient care. Will continue to follow.
[2024-07-22] MEDS: LEVOTHYROXINE 137MCG (0.137MG) TAB 137 MCG PO (10:02)
[2024-07-22] MEDS: ASPIRIN EC 81MG TABLET 81 MG PO (10:03)
[2024-07-22 10:12] LABS: Adenovirus,PCR Not Detected (NotDetected); Bordetella Pertussis Not Detected (NotDetected); Chlamydophila Pneumoniae, PCR Not Detected (NotDetected); Coronavirus 19, PCR Not Detected (NotDetected); Coronavirus 229E Not Detected (NotDetected); Coronavirus NL63 Not Detected (NotDetected); Coronavirus OC43 Not Detected (NotDetected); Coronovirus HKU1,PCR Not Detected (NotDetected); Human Metapneumovirus Not Detected (NotDetected); Influenza A, PCR Not Detected (NotDetected); Influenza AH1, 2009 Not Detected (NotDetected); Influenza AH1, PCR Not Detected (NotDetected); Influenza AH3,PCR Not Detected (NotDetected); Influenza B, PCR Not Detected (NotDetected); Mycoplasma Pneumoniae, PCR Not Detected (NotDetected); Parainfluenza 1, PCR Not Detected (NotDetected); Parainfluenza 2, PCR Not Detected (NotDetected); Parainfluenza 3, PCR Not Detected (NotDetected); Parainfluenza 4, PCR Not Detected (NotDetected); Respiratory Syncytial Virus Not Detected (NotDetected); Rhinovirus/Enterovirus Not Detected (NotDetected)
--- NOTE | 2024-07-22 10:14 | HMH.OTEV ---
OT Inpatient Evaluation Rehab OT IP Evaluation Start: 07/22/24 03:46 Freq: ONCE Status: Active Protocol: Document 07/22/24 09:50 SHANTA (Rec: 07/22/24 10:14 SHANTA [id number]) Rehab OT IP Assessment Subjective History 4-year-old with past medical history of Pseudomonas pneumonia admission 06/06 to 06/08 and follow-up appointment with Dr. Broderick 06/14, COPD on nocturnal/as needed oxygen, daily smoker, hypertension, hypothyroidism, restless leg syndrome. Patient presents to hospital complaining of 3 to 4 days chest/rib discomfort, shortness of breath, malaise and ataxia. Patient describes chest discomfort as 7/10, starting posterior lungs radiating to bilateral ribs, burning/sharp, worse with movement and better with rest, occurring with nausea and ataxia. States her breathing had improved after treatment of pseudomonal pneumonia in June, but worsened again 3 days ago. Denies history of [place], CVA. Also denies fevers, chills, known sick contacts, recent travel, vomiting, blurry vision, headaches. WBC 8.2 K3.1, troponin 0.01-> 0. 02, CTA chest no pulmonary embolus, but signs of emphysema and acute versus subacute infection. CTA chest also showed right 2nd-4th subacute rib fractures. CT abdomen/pelvis showed possible , bile duct dilatation, but patient total bilirubin 0.3 at time of admission with normal transaminases. Patient lives in a mobile homes. No NAIN to enter. No steps inside of home. Independent with ADLs and fx'l mobility prior to admission. Continues to drive. Subjective I can get u. Analysis Patient' safety and sequencing during bed mobility , transfers, ambulation and ADLs. Patient completed all tasks independently. Objective Patient Orientation Person Right Upper Extremity Gross ROM WFL Left Upper Extremity Gross ROM WFL Bed Mobility bed mobility-scooting,bed mobility - supine/sit Transfer Training Sit/Stand/Step Transfer Assist Level Independent Chair Transfer Ability Independent Chair Transfer Technique Sit to/from Ambulatory Rehab OT IP prob,goals,plan Problems Date of Evaluation: 07/22/24 Rehab Potential Rehab Potential Good Plan OT Plan Frequency Daily Duration LOS Discharge Plan OT Discharge Plan Patient appears to be at baseline. Recommend patient to return home after medical d/c . Eval Complexity Eval Charge Codes 82136 - Low Complexity PHYSICIAN CERTIFICATION: I certify the specified therapy services for Erinn Nunez are required, authorized, and reviewed every 30 days.
--- NOTE | 2024-07-22 10:26 | PC.NURSE ---
AT MORNING MED PASS PT HAD WAS EATING A BISCUIT WITH SAUSAGE AND JELLY. PT STATED THAT MD TOLD HER THAT [facility] COULD EAT AND THEY CANCELLED THE MRCP. MD MADE AWARE THAT PT HAD EATEN. MRI CALLED AND TOLD. MRI STATED THAT PT HAD TO BE NPO FOR 8 HOURS AND MRCP WOULD HAVE TO BE DONE TOMORROW AT [facility] IF PT WERE GOING TO STAY.
[2024-07-22 10:51] LABS: Troponin I < 0.01 ng/ml (0.00-0.034)
[2024-07-22] MEDS: BUPRENORPHINE/NALOXONE 8MG/2MG ODT 2 EACH SL (11:20)
[2024-07-22] MEDS: CARVEDILOL 3.125MG TABLET 3.125 MG PO ×2 (11:20→20:08)
[2024-07-22] MEDS: ISOSORBIDE MONO 30MG TAB.ER.24H 30 MG PO (11:20)
[2024-07-22] MEDS: ACETAMINOPHEN 325MG TAB 650 MG PO ×2 (12:58→20:10)
[2024-07-22] MEDS: GABAPENTIN 600MG TABLET 600 MG PO ×2 (12:58→20:08)
[2024-07-22] MEDS: TIZANIDINE 4MG TABLET 4 MG PO ×2 (13:01→20:09)
--- NOTE | 2024-07-22 13:37 | SW/DCPLANNER ---
Per PT patient is independent and no assistance needed at this time.
[2024-07-22] MEDS: FUROSEMIDE 40MG/4ML VIAL 40 MG IV (13:42)
--- NOTE | 2024-07-22 18:26 | PC.NURSE ---
VSS. LUNGS DIMINISHED. C/O OF RIB PAIN X1 THIS SHIFT. MEDICATED PER OCT. PT EDUCATED ON NPO AT MIDNIGHT FOR MRCP IN THE AM.
[2024-07-22] MEDS: BUDESONIDE 0.5MG/2ML NEB 0.5 MG IH (19:00)
[2024-07-22] MEDS: SODIUM CHLORIDE 3% 15ML NEB 3 ML IH (19:00)
[2024-07-22] MEDS: AMITRIPTYLINE 25MG TABLET 25 MG PO (20:08)
[2024-07-22] MEDS: ROPINIROLE HCL 0.25 MG TABLET PO (20:09)
[2024-07-23] VITALS: BP 96/54; PULSE 75; PULSE 77; RESP 18; TEMP 36.9; O2SAT 97
[2024-07-23 04:00] VITALS: BP 90/58; PULSE 65; PULSE 67; RESP 14; TEMP 37.1; O2SAT 97; BMI 19.6
[2024-07-23] MEDS: CEFEPIME HCL 2 GM in 0.9 % SODIUM CHLORIDE 100 ML IV ×2 (04:59→12:31)
--- NOTE | 2024-07-23 05:00 | MR_ITS ---
FINAL REPORT CLINICAL HISTORY: Bile duct dilatation, eval for biliary obstruction FINDINGS: Multiplanar MR imaging of the abdomen was performed using the MRCP protocol. 3-D images were also obtained and reviewed. There is mild extrahepatic biliary ductal dilatation. Common bile duct measures up to 12 mm without evidence of choledocholithiasis. Dilatation extends to the ampulla suggestive of ampullary stenosis. There is no obvious mass. No abnormality is identified of the gallbladder. The pancreatic duct is only partially visualized secondary to its normal small caliber. Review of the remainder of the abdomen reveals no evidence of mass or adenopathy. No abnormal fluid collection is seen. 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 Reviewed, Interpreted and Dictated by Hesham Flowers MD Transcribed by Kristy Adams Authenticated and [facility]
[2024-07-23] MEDS: VANCOMYCIN HCL 1,000 MG in 0.9 % SODIUM CHLORIDE 250 ML 125 MG IV (05:34)
[2024-07-23] MEDS: LEVOTHYROXINE 137MCG (0.137MG) TAB 137 MCG PO (06:32)
[2024-07-23 07:54] VITALS: BP 125/76; PULSE 73; RESP 21; TEMP 36.6; O2SAT 92
[2024-07-23 08:00] VITALS: PULSE 80; O2SAT 94
[2024-07-23] MEDS: ASPIRIN EC 81MG TABLET 81 MG PO (08:16)
[2024-07-23] MEDS: predniSONE 20MG TAB 40 MG PO (08:16)
[2024-07-23] MEDS: ENOXAPARIN 40MG/0.4ML SYRINGE 40 MG SUBCUT (08:16)
[2024-07-23] MEDS: CARVEDILOL 3.125MG TABLET 3.125 MG PO (08:16)
[2024-07-23] MEDS: GABAPENTIN 600MG TABLET 600 MG PO ×2 (08:17→12:31)
[2024-07-23] MEDS: ISOSORBIDE MONO 30MG TAB.ER.24H 30 MG PO (08:58)
[2024-07-23] MEDS: FUROSEMIDE 40 MG TABLET 20 MG PO (08:58)
[2024-07-23] MEDS: BUPRENORPHINE/NALOXONE 8MG/2MG ODT 2 EACH SL (08:58)
[2024-07-23] MEDS: TIZANIDINE 4MG TABLET 4 MG PO ×2 (09:03→12:31)
--- NOTE | 2024-07-23 09:48 | P.PN_ITS ---
Subjective *Date: 07/23/24 *Time: 10:55 Interval history: No acute respiratory development. Patient continued to complain of pleuritic chest pain Pulmonology Exam Inpatient Vital signs and Labs for Last 24 Hours: Temp Pulse Resp BP Pulse Ox O2 Del Method O2 Flow Rate 98 F 73 21 125/76 92 L Nasal Cannula 3 07/23/24 07:54 07/23/24 07:54 07/23/24 07:54 07/23/24 07:54 07/23/24 07:54 07/23/24 09:00 07/23/24 09:00 Laboratory Results - last 24 hr 07/21/24 22:10: Chlamy pneumoniae PCR Not detected, Adenovirus (PCR) Not detected, B. pertussis DNA (PCR) Not detected, Coronavirus OC43 (PCR) Not detected, Coronavirus HKU1 (PCR) Not detected, Coronavirus 229E (PCR) Not detected, SARS-CoV-2 (PCR) Not detected, Coronavirus NL63 (PCR) Not detected, Human Metapneumovir PCR Not detected, Influenza A (H1) PCR Not detected, Influ A (H1N1/09) PCR Not detected, Influenza A (H3) PCR Not detected, Influenza Type A (PCR) Not detected, Influenza Type B (PCR) Not detected, M. pneumoniae (PCR) Not detected, Parainfluenza 1 (PCR) Not detected, Parainfluenza 2 (PCR) Not detected, Parainfluenza 3 (PCR) Not detected, Parainfluenza 4 (PCR) Not dete cted, RSV (PCR) Not detected, Entero/Rhino (PCR) Not detected 07/22/24 10:16: Troponin I < 0.01 Temp Pulse Resp BP Pulse Ox O2 Del Method O2 Flow Rate 97.6 F 72 18 101/57 L 98 Nasal Cannula 3 07/22/24 07:41 07/22/24 07:41 07/22/24 07:41 07/22/24 07:41 07/22/24 07:41 07/22/24 07:41 07/22/24 07:41 Laboratory Results - last 24 hr 07/21/24 22:10: SARS-CoV-2 (PCR) Not detected, Influenza A Untype (PCR) Not detected, Influenza Type B (PCR) Not detected 07/21/24 22:15: WBC 8.2, RBC 3.90 L, Hgb 12.1 L, Hct 37.7, MCV 96.5, MCH 31.0, MCHC 32.1, RDW 13.5, Plt Count 345, MPV 7.8, Neut % (Auto) 85.2 H, Lymph % (Auto) 10.2, Lamar % (Auto) 3.4, Eos % (Auto) 0.5, Baso % (Auto) 0.7, Neut # (Auto) 7.0, Lymph # (Auto) 0.8, Lamar # (Auto) 0.3, Eos # (Auto) 0.0, Baso # (Auto) 0.1, Total Counted 100, Neutrophils % (Manual) 87 H, Lymphocytes % (Manual) 9 L, Monocytes % (Manual) 3, Eosinophils % (Manual) 1, Platelet Estimate Normal, Hypochromasia 2+, Stomatocytes 3+, Sodium 137, Potassium 3.1 L, Chloride 102, Carbon Dioxide 32 H, Anion Gap 6.1, BUN 6 L, Creatinine 0.50 L, Estimated Creat Clear 114, Estimated GFR 128, Est GFR ( Amer) 155, Glucose 127 H, Calcium 8.7, Total Bilirubin 0.3, AST 26, ALT 14, Alkaline Phosphatase 106, Troponin I < 0.01, Total Protein 6.9, Albumin 3.8, Globulin 3.1, Albumin/Globulin Ratio 1.2 07/22/24 01:53: Troponin I 0.02 07/22/24 04:05: WBC 7.5, RBC 3.96 L, Hgb 12.5, Hct 39.1, MCV 98.7, MCH 31.5 H, MCHC 31.9, RDW 13.4, Plt Count 369, MPV 7.6, Neut % (Auto) 70.3, Lymph % (Auto) 21.0, Lamar % (Auto) 6.3, Eos % (Auto) 1.3, Baso % (Auto) 1.1, Neut # (Auto) 5.3, Lymph # (Auto) 1.6, Lamar # (Auto) 0.5, Eos # (Auto) 0.1, Baso # (Auto) 0.1, Sodium 136, Potassium 4.1 D, Chloride 100, Carbon Dioxide 34 H, Anion Gap 6.1, BUN 4 L D, Creatinine 0.60, Estimated Creat Clear 95, Estimated GFR 104, Est GFR ( Amer) 126, Glucose 159 H D, Calcium 8.7, Magnesium 1.8, Total Bilirubin 0.3, Direct Bilirubin 0.3, Conjugated Bilirubin 0.0, Indirect Bilirubin 0.0, Unconjugated Bilirubin 0.0, AST 28, ALT 15, Alkaline Phosphatase 106, Troponin I < 0.01, NT-Pro-B Natriuret Pep 401 H, Total Protein 6.8, Albumin 3.7, Triglycerides 123, Cholesterol 168, LDL Cholesterol Direct 68.28 L, VLDL Cholesterol 25, HDL Cholesterol 66 H, Cholesterol/HDL Ratio 2.5, Procalcitonin 0.042 I & O for Labs for Last 24 Hours: Intake & Output 07/20/24 07/21/24 07/22/24 07/23/24 23:59 23:59 23:59 23:59 Intake Total 790 / 1440 650 / 650 Output Total 0 / 0 0 / 0 Balance 790 / 1440 650 / 650 Weight 125 lb 125 lb 124 lb 15.998 oz Intake & Output 07/19/24 07/20/24 07/21/24 07/22/24 23:59 23:59 23:59 23:59 Output Total 0 / 0 Balance 0 / 0 Weight 125 lb 125 lb Microbiology Reports for the Last 24 Hours: Microbiology 07/22/24 04:05 Blood Blood Culture - Preliminary NO GROWTH AFTER 24 HOURS 07/22/24 01:53 Blood Blood Culture - Preliminary NO GROWTH AFTER 24 HOURS Microbiology 05/15/24 02:00 Sputum - Expectorated Sputum Gram Stain - Final Constitutional: Present moderate distress Head: Present normocephalic and atraumatic ENT: Present normal exam, normal oropharynx and mucous membranes moist Neck: Present normal inspection and full ROM Respiratory: Present respiratory distress, rhonchi and able to speak in complete sentences; Absent wheezes Comment:: Rt chest wall tenderness Cardiac: Present S1/S2, Tachycardia and radial pulses present GI: Present soft and distention; Absent tenderness or guarding Rectal (female): Present deferred (female): Present deferred Skin: Present intact; Absent cyanosis or jaundice Neuro: Present alert, awake and oriented x 3 Extremities: Present normal inspection; Absent clubbing or cyanosis Psychiatric: Present normal affect and cooperative Assessment and Plan *Assessment and plan (1) Acute exacerbation of chronic obstructive pulmonary disease: Status: Acute Category: Medical Code(s): J44.1 - Chronic obstructive pulmonary disease with (acute) exacerbation (2) Chest pain: Status: Acute Category: Medical Code(s): R07.9 - Chest pain, unspecified (3) Pseudomonas pneumonia: Status: Acute Category: Medical Code(s): J15.1 - Pneumonia due to Pseudomonas (4) Acute and chronic respiratory failure: Status: Acute Category: Medical Code(s): J96.20 - Acute and chronic respiratory failure, unspecified whether with hypoxia or hypercapnia Plan Erinn Guerra is a 54-year-old female greater than [id number] smoking history, connective tissue disorder/rheumatoid arthritis, following with rheumatology prior history of COPD Pseudomonas pneumonia presented to the ER complaining of worsening respiratory distress and chest discomfort and shortness of breath, pulmonary was called for further evaluation and management. At baseline on RA Afebrile. Hemodynamically stable. No evidence of leukocytosis. COVID-19 and flu PCR panel negative. CTA upon admission no pulmonary embolism. Significant emphysematous changes as prior. The lower lobe airspace disease / fibrotic appears significantly improved from prior. Old rib fractures noted. On initial examination severe respiratory distress. No significant wheezing noted. Interval update: No acute respiratory vents overnight, improving ox requirements, weaned to 3 L. Will continue to wean as tolerated. Complaining of pleuritic chest pain has Toradol as needed. Received 40 IV Lasix yesterday. Continue remain on 20 twice daily home dose. ERCP questionable ampullary stenosis. Antibiotics weaned to levofloxacin Plan: Continue oxygen supplementation to maintain O2 saturation goal 90% and above. Continue levofloxacin pending culture results DuoNebs every 6 hours along with Pulmicort every 12 scheduled Prednisone 40 mg daily # Thank you for involving pulmonary in this patient care. Will continue to follow.
[2024-07-23 11:02] VITALS: PULSE 73; PULSE 75; O2SAT 86
[2024-07-23] MEDS: IPRATROPIUM/ALBUTEROL 3 ML NEB IH (11:02)
[2024-07-23 12:00] VITALS: BP 114/65; PULSE 90; PULSE 94; RESP 21; TEMP 36.6; O2SAT 95
[2024-07-23] MEDS: ACETAMINOPHEN 325MG TAB 650 MG PO (12:36)
--- NOTE | 2024-07-23 15:15 | EXP.DC.SUM ---
General Admission date:: 07/22/24 Discharge date: 07/23/24 HPI HPI HPI: 54-year-old with past medical history of Pseudomonas pneumonia admission 06/06 to 06/08 and follow-up appointment with Dr. Broderick 06/14, COPD on nocturnal/as needed oxygen, daily smoker, hypertension, hypothyroidism, restless leg syndrome. Patient presents to hospital complaining of 3 to 4 days chest/rib discomfort, shortness of breath, malaise and ataxia. Patient describes chest discomfort as 7/10, starting posterior lungs radiating to bilateral ribs, burning/sharp, worse with movement and better with rest, occurring with nausea and ataxia. States her breathing had improved after treatment of pseudomonal pneumonia in June, but worsened again 3 days ago. Denies history of [place], CVA. Also denies fevers, chills, known sick contacts, recent travel, vomiting, blurry vision, headaches. WBC 8.2 K3.1, troponin 0.01-> 0.02, CTA chest no pulmonary embolus, but signs of emphysema and acute versus subacute infection. CTA chest also showed right 2nd-4th subacute rib fractures. CT abdomen/pelvis showed possible, bile duct dilatation, but patient total bilirubin 0.3 at time of admission with normal transaminases. Hospital Course Hospital Course Hospital Course: 54-year-old with past medical history of Pseudomonas pneumonia admission 06/06 to 06/08 and follow-up appointment with Dr. Broderick 06/14, COPD on nocturnal/as needed oxygen, daily smoker, hypothyroidism, restless leg syndrome and hypertension. Patient presents to hospital complaining of 3 to 4 days chest/rib discomfort, shortness of breath, malaise and ataxia. WBC 8.2 K3.1, troponin 0.01-> 0.02, CTA chest no pulmonary embolus, but signs of emphysema and acute versus subacute infection. CTA chest also showed right 2nd-4th subacute rib fractures. Admitted to hospital for chest pain/ pneumonia workup. Patient did well. On baseline oxygen for 24 hours prior to discharge. Pulmonology assisted with care. Given her clinical improvement, will discharge home to complete outpatient antibiotics. Problems addressed as follows: Lab/imaging reviewed at time of admission: ?CTA chest no pulmonary embolus, but signs of emphysema and acute versus subacute infection. CTA chest also showed right 2nd-4th subacute rib fractures. ?COVID/influenza nasopharyngeal PCR negative, blood cultures ordered in emergency room, I ordered respiratory nasopharyngeal PCR. ? NA 137, K3.1, CL 102, CO2 32, BUN 6, CR 0.5, GLU 127, total bili 0.3, AST 26, ALT 14, alk phos 106, WBC 8.2, Hgb 12.7. Troponin trends 0.01-> 0.02. I will repeat serial troponins, BMP, CBC, mag in AM. I will also check a BNP in AM. COPD exacerbation possibly secondary to pneumonia: Subacute pneumonia. Present on admission. ? Wheezes, prolonged expiratory phase noted on my exam in emergency room. Appears to be suffering from COPD exacerbation. DuoNebs 3 mL inhaled every 6 hours while awake, albuterol 2.5 mg inhaled every 4 hours as needed shortness of breath, oxygen to keep sats greater than 90%. Pulmonology was consulted to assist with care. Patient discharged home on Levaquin and prednisone to complete empiric course. -Review of chest imaging/CTA on arrival shows persistent but improving airspace disease. Given her history of Pseudomonas, treated with broad-spectrum antibiotics during admission. As above, transitioned to Levaquin at discharge to complete empiric course. Clinically showing improvement by discharge. White count and inflammatory markers improving. On 3 L oxygen which is her baseline. Subacute rib fractures right-sided 2nd-4th: ? Patient unaware of recent accidents or falls. Possibly occurred with coughing. PT/OT evaluation during hospitalization. tramadol 100 mg 3 times daily as needed moderate pain. Morphine 2 mg IV every 6 as needed severe pain. No signs of flail chest noted during my examination emergency room. Continue ibuprofen or Tylenol at discharge. Hypokalemia: Low on admission, improved by discharge with replacement. Possible biliary obstruction: ? CT abdomen/pelvis shows 10 mm common bile duct. Patient's total bilirubin 0.3 with normal transaminases. MRCP obtained. 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 Will refer to GI for outpatient evaluation and further management. Patient having no abdominal pain, liver enzymes remain normal. Chest pain: ? Probably secondary to rib fractures and COPD exacerbation. Patient denied history of CHF, but on Coreg, Imdur, furosemide as outpatient. Also states that Dr. Howard is her perinatal specialist but I do not know why I see him, but he put me on some medication. Troponins with marginal elevation, suspect secondary to stress of acute illness. Reviewed records noting May 2024 echocardiogram done at this institution within normal limits with normal EF and diastolic function. Patient likely on beforementioned medications for hypertension not CHF. No reason to repeat echocardiogram given recent echocardiogram May 2024. Hypothyroidism: Levothyroxine 137 mcg p.o. daily Restless leg syndrome: Requip 0.25 p.o. nightly Hypertension: Carvedilol 3.125 p.o. twice daily, Lasix 20 mg p.o. daily, Imdur 30 mg p.o. daily, hydralazine 10 mg IV every 6 hours as needed SBP over 160 Daily smoker: Nicotine patch 21 mg transdermal every 24 as needed nicotine cravings. Patient has no intention of quitting per discussion. Total time spent on discharge 36 minutes in counseling, documentation, chart review, and direct care with patient. Exam Data for Last 24 hours Vital signs and Labs for Last 24 Hours: Temp Pulse Resp BP Pulse Ox O2 Del Method O2 Flow Rate 97.8 F 94 H 21 114/65 95 Nasal Cannula 3 07/23/24 12:00 07/23/24 12:00 07/23/24 12:00 07/23/24 12:00 07/23/24 12:00 07/23/24 12:00 07/23/24 12:00 I & O for Last 24 hours: Intake & Output 07/20/24 07/21/24 07/22/24 07/23/24 23:59 23:59 23:59 23:59 Intake Total 790 / 1440 1010 / 1010 Output Total 0 / 0 0 / 0 Balance 790 / 1440 1010 / 1010 Weight 56.699 kg 56.699 kg 58.014 kg Microbiology Reports for the Last 24 Hours: Microbiology 07/22/24 04:05 Blood Blood Culture - Preliminary NO GROWTH AFTER 24 HOURS 07/22/24 01:53 Blood Blood Culture - Preliminary NO GROWTH AFTER 24 HOURS Constitutional Constitutional: no acute distress, thin, chronically ill appearing and cooperative *Routine HEENT Exam Head: Present normocephalic Eye: Present EOMI and PERRL ENT: Present mucous membranes moist *Routine Neck Exam Neck: Present supple; Absent lymphadenopathy Routine Chest/Breast/Axilla Exam Chest wall: Absent tenderness *Routine Respiratory Exam Respiratory: Present prolonged expiratory phase, rhonchi and wheezes; Absent respiratory distress or crackles (bases) *Routine Cardiovascular Exam Cardiovascular: Present RRR *Routine Abdominal Exam Abdominal: Present soft and normoactive bowel sounds; Absent tenderness *Routine Rectal Exam Patient deferred: visual exam *Routine Exam Patient deferred: external exam *Routine Extremities Exam Extremities: Absent cyanosis, clubbing or edema *Routine Skin Exam Skin: Present warm; Absent rash *Routine Neurological Exam Neurological: Present alert, oriented X3 and moving all extremities; Absent altered mental status Results Data Completed and Pending Labs on day of discharge: Preliminary micro results at discharge 07/22/24 04:05 Blood Culture - Preliminary Blood NO GROWTH AFTER 24 HOURS 07/22/24 01:53 Blood Culture - Preliminary Blood NO GROWTH AFTER 24 HOURS DS: Diagnosis Discharge Diagnosis (1) Acute exacerbation of chronic obstructive pulmonary disease: Status: Acute Code(s): J44.1 - Chronic obstructive pulmonary disease with (acute) exacerbation (2) Chest pain: Status: Acute Code(s): R07.9 - Chest pain, unspecified (3) Pseudomonas pneumonia: Status: Acute Code(s): J15.1 - Pneumonia due to Pseudomonas (4) Acute and chronic respiratory failure: Status: Acute Code(s): J96.20 - Acute and chronic respiratory failure, unspecified whether with hypoxia or hypercapnia Meds Home Medications and Allergies Home Medications ?Medication ?Instructions ?Recorded ?Confirmed ?Type buprenorphine 8 mg-naloxone 2 mg 2 tab sublingual DAILY 08/19/19 07/22/24 History sublingual tablet tizanidine 4 mg tablet 4 mg PO TID 10/06/21 07/22/24 History cyanocobalamin (vitamin B-12) 1,000 mcg SQ MONTHLY 12/03/23 07/22/24 History 1,000 mcg/mL injection solution gabapentin 600 mg tablet 600 mg PO TID 12/03/23 07/22/24 History (Neurontin) latanoprost 0.005 % eye drops 1 drp Eye-Both HS 12/03/23 07/22/24 History amitriptyline 25 mg tablet 25 mg PO HS 12/27/23 07/22/24 History estradiol 1 mg tablet (Estrace) 1 mg PO DAILY 01/23/24 07/22/24 History aspirin 81 mg tablet,delayed 81 mg PO DAILY #30 tabs 01/29/24 07/22/24 Rx release (Adult Low Dose Aspirin) isosorbide mononitrate 30 mg 30 mg PO DAILY #30 tabs 04/25/24 07/22/24 Rx tablet,extended release 24 hr albuterol sulfate 90 mcg/actuation 2 puff inhalation Q4H PRN 05/15/24 07/22/24 History aerosol inhaler Shortness Of Breath Or Wheezing alendronate 70 mg tablet 70 mg PO WEEKLY 05/15/24 07/22/24 History calcium 600 mg (as 1 tab PO DAILY 05/15/24 07/22/24 History carbonate)-vitamin D3 10 mcg (400 unit) tablet carvedilol 3.125 mg tablet 3.125 mg PO BID 05/15/24 07/22/24 History cholecalciferol (vitamin D3) 25 25 mcg PO DAILY 05/15/24 07/22/24 History mcg (1,000 unit) tablet ergocalciferol (vitamin D2) 1,250 1,250 mcg PO WEEKLY 05/15/24 07/22/24 History mcg (50,000 unit) capsule furosemide 40 mg tablet 20 mg PO DAILY 05/15/24 07/22/24 History hydroxyzine pamoate 25 mg capsule 25 mg PO TID PRN Itching 05/15/24 07/22/24 History montelukast 10 mg tablet 10 mg PO PM 05/15/24 07/22/24 History omeprazole 20 mg capsule,delayed 20 mg PO DAILY 05/15/24 07/22/24 History release potassium chloride 10 mEq 10 meq PO BID 05/15/24 07/22/24 History capsule,extended release ropinirole 0.25 mg tablet 0.25 - 0.5 mg PO HS 05/15/24 07/22/24 History fluticasone fur. 100 mcg-umeclid 1 inh inhalation DAILY 30 days #60 05/17/24 07/22/24 Rx 62.5 mcg-vilant 25 mcg ea inhalat.powder (Trelegy Ellipta) lidocaine 5 % topical patch 1 patch topical 2100 #0 ea 05/17/24 07/22/24 Rx levothyroxine 137 mcg tablet 137 mcg PO DAILY 06/06/24 07/22/24 History ibuprofen 800 mg tablet 800 mg PO TID 06/07/24 07/22/24 History levofloxacin 750 mg tablet 750 mg PO DAILY 6 days #6 tabs 07/22/24 Rx prednisone 10 mg tablet 10 mg PO DAILY 07/22/24 07/22/24 History prednisone 20 mg tablet 40 mg (2 x 20 mg) PO DAILY 2 days 07/23/24 Rx #4 tabs New Prescriptions to Start [facility]: [facility] pred[facility]one [facility] Arreola Allergies Allergy/AdvReac Type Severity Reaction Status Date / Time Sulfa (Sulfonamide Allergy Unknown I-RASH Verified 06/14/24 10:17 Antibiotics) (SULFA (SULFONAMIDE ANTIBIOTICS)) sulfamethoxazole (From Allergy Unknown I-RASH Verified 06/14/24 10:17 BACTRIM) trimethoprim (From BACTRIM) Allergy Unknown I-RASH Verified 06/14/24 10:17 cefaclor (From CECLOR) AdvReac Unknown CAUSES Verified 07/22/24 07:38 YEAST INFECTION Discharge Plan Disposition Patient Disposition: Home, Self-Care Condition: Good Follow up Plan Follow up with: Kiana Arenas PA [Primary Care Provider] - 07/30/24 11:00 am Fatemeh Gonzalez APRN [Nurse Practitioner] - 08/05/24 9:15 am Dior Marcial MD [Physician] - 08/21/24 1:00 pm Prescriptions/Medication Reconciliation: New levofloxacin 750 mg tablet 750 mg PO DAILY 6 Days Qty: 6 0RF prednisone 20 mg Tablet 40 mg PO DAILY 2 Days Qty: 4 0RF Continued amitriptyline 25 mg tablet 25 mg PO HS buprenorphine-naloxone 8-2 mg tablet, sublingual 2 tab SUBLINGUAL DAILY Rx Instructions: VERIFIED WITH OUTPATIENT PHARMACY tizanidine 4 mg tablet 4 mg PO TID aspirin [Adult Low Dose Aspirin] 81 mg tablet,delayed release (DR/EC) 81 mg PO DAILY Qty: 30 5RF isosorbide mononitrate 30 mg tablet extended release 24 hr 30 mg PO DAILY Qty: 30 5RF latanoprost 0.005 % drops 1 drp Eye-Both HS gabapentin [Neurontin] 600 mg tablet 600 mg PO TID Patient Comments: TAKE 1 TABLET BY MOUTH THREE TIMES DAILY cyanocobalamin (vitamin B-12) 1,000 mcg/mL solution 1,000 mcg SQ MONTHLY Patient Comments: INJECT 1 ML SUBCUTANEOUSLY monthly FOR vitamin b12 deficiency estradiol [Estrace] 1 mg tablet 1 mg PO DAILY Rx Instructions: TAKE ONE TABLET BY MOUTH EVERY DAY furosemide 40 mg tablet 20 mg PO DAILY Patient Comments: TAKE 1/2 TABLET BY MOUTH EVERY DAY potassium chloride 10 mEq capsule, extended release 10 meq PO BID Patient Comments: TAKE ONE CAPSULE BY MOUTH TWICE DAILY carvedilol 3.125 mg tablet 3.125 mg PO BID Patient Comments: TAKE ONE TABLET BY MOUTH TWICE DAILY ropinirole 0.25 mg tablet 0.25 - 0.5 mg PO HS Patient Comments: TAKE 1 TO 2 TABLET(S) BY MOUTH AT least 1 TO 3 hour(s) BEFORE bedtime FOR restless LEGS omeprazole 20 mg capsule,delayed release(DR/EC) 20 mg PO DAILY Patient Comments: TAKE ONE CAPSULE BY MOUTH EVERY DAY FOR gerd montelukast 10 mg tablet 10 mg PO PM Patient Comments: TAKE ONE TABLET BY MOUTH EVERY DAY FOR allergies ergocalciferol (vitamin D2) 1,250 mcg (50,000 unit) capsule 1,250 mcg PO WEEKLY Patient Comments: TAKE ONE CAPSULE BY MOUTH ONCE A WEEK hydroxyzine pamoate 25 mg capsule 25 mg PO TID PRN (Reason: Itching) Patient Comments: TAKE ONE CAPSULE BY MOUTH THREE TIMES DAILY NEEDED FOR ITCHING cholecalciferol (vitamin D3) 25 mcg (1,000 unit) tablet 25 mcg PO DAILY Patient Comments: TAKE ONE TABLET BY MOUTH EVERY DAY calcium carbonate-vitamin D3 600 mg-10 mcg (400 unit) tablet 1 tab PO DAILY Patient Comments: TAKE ONE TABLET BY MOUTH EVERY DAY alendronate 70 mg tablet 70 mg PO WEEKLY albuterol sulfate 90 mcg/actuation Hfa Aerosol Inhaler 2 puff INHALATION Q4H PRN (Reason: Shortness Of Breath Or Wheezing) Trelegy Ellipta 100-62.5-25 mcg Blister With Device 1 inh inhalation DAILY 30 Days Qty: 60 0RF lidocaine 5 % Adhesive Patch,Medicated 1 patch topical 2100 Qty: 0 0RF Rx Instructions: OTC levothyroxine 137 mcg tablet 137 mcg PO DAILY Rx Instructions: TAKE ONE TABLET BY MOUTH EVERY DAY FOR THYROID ibuprofen 800 mg tablet 800 mg PO TID prednisone 10 mg tablet 10 mg PO DAILY Patient Comments: TAKE ONE TABLET BY MOUTH ONCE DAILY FOR FOURTEEN DAYS --TAKE WITH FOOD-- Problem Reconciliation Problems Reviewed?: Yes Patient Discharge Instructions ACTIVITY: Continue current activity DIET: continue same diet Patient Instructions: DI for Angina, Magnetic Resonance Cholangiopancreatography Print Language: Kinyarwanda Providers Primary Care Provider: Kiana Arenas Admit Provider: Dani Hagen Attending Provider: Dani Hagen
--- NOTE | 2024-07-24 10:16 | SW/DCPLANNER ---
Spoke with patient on the phone. Patient stated that she is doing well. Patient stated that she is aware of her upcoming appointments. Patient stated that she got her new medication brought up to her before she got discharged from clinic pharmacy. Patient stated that she has no concerns or questions at this time. Huy Elaine
== END 2024-07-23 16:18 | disposition home or self-care (01) ==
LOC: ER 07-22 02:36 → 2ND 07-22 02:48
PROVIDERS: Admitting Provider Internal Medicine; Emergency Provider Emergency Medicine; PCP Physician Assistant; Visit Provider Internal Medicine
DX: J44.1 Chronic obstructive pulmonary disease with (acute) exacerbation (principal); R07.9 Chest pain, unspecified; J18.9 Pneumonia, unspecified organism; F17.210 Nicotine dependence, cigarettes, uncomplicated; E03.9 Hypothyroidism, unspecified; Z79.899 Other long term (current) drug therapy; E55.9 Vitamin D deficiency, unspecified; M84.48XA Pathological fracture, other site, initial encounter for fracture
CPT/HCPCS: 36415; 71275; 74177; 74181; 76376; 80048; 80053; 80061; 80076; 83735; 83880; 84145; 84484; 85007; 85025; 85027; 87040; 87077; 87633; 87636; 93005; 94640; 94761; 97162; 97165; 99285; G0378; J0131; J0574; J1650; J1885; J1940; J2270; J2405; J2919; J3370; J3480; J7050; J7120; J7620; Q9967

== ENCOUNTER 2024-08-05 08:13 | Outpatient (CLI) | payer MEDICAID, SELFPAY ==
[2024-08-05] VITALS (19 sets, daily range): BP systolic 100–136; BP diastolic 42–75; PULSE 69–91; RESP 18–20; O2SAT 93–94; BMI 19.5
[2024-08-05] MEDS: METHYLPREDNISOLONE SOD SUCC 125MG VIAL 125 MG IV (08:48)
[2024-08-05] MEDS: diphenhydrAMINE 50MG CAPSULE 50 MG PO (08:48)
[2024-08-05] MEDS: ACETAMINOPHEN 325MG TAB 650 MG PO (08:48)
[2024-08-05 08:54] LABS: Basophils % 0.4 % (0.1-2.0); Eosinophils # 0.3 K/mm3 (0.0-0.4); Hematocrit 33.6 % (37.0-47.0); Hemoglobin 10.7 g/dL (12.2-16.2); Lymphocytes # 1.4 K/mm3 (0.7-4.5); Lymphocytes % 16.5 % (10-50); Mean Corpuscular HGB Conc 31.8 g/dL (31.8-35.4); Mean Corpuscular Hemoglobin 31.3 pg (27.0-31.2); Mean Corpuscular Volume 98.2 fl (81-99); Mean Platelet Volume 9.5 fl (7.4-10.4); Monocytes # 0.9 K/mm3 (0.1-1.0); Monocytes % 10.7 % (1.7-9.3); Neutrophils # 5.8 K/mm3 (1.8-7.8); Platelet Count 314 K/mm3 (142-424); Red Blood Count 3.42 M/mm3 (4.20-5.40); Red Cell Distribution Width 13.6 % (11.5-17.5); White Blood Count 8.5 K/mm3 (4.8-10.8)
[2024-08-05] MEDS: SODIUM CHLORIDE 0.9% 50ML BAG 50 ML IV (09:16)
[2024-08-05] MEDS: RITUXIMAB 1,000 MG in 0.9 % SODIUM CHLORIDE 500 ML 30 MG IV (09:17)
== END 2024-08-05 13:55 | disposition home or self-care (01) ==
LOC: INF 08:14
PROVIDERS: PCP Physician Assistant; Visit Provider Student in an Organized Health Care Education/Training Program
DX: M05.79 Rheumatoid arthritis with rheumatoid factor of multiple sites without organ or systems involvement (principal)
CPT/HCPCS: 85025; 96413; 96415; J2919; J9312

== ENCOUNTER 2024-08-19 08:43 | Outpatient (CLI) | payer MEDICAID, SELFPAY ==
[2024-08-19] VITALS (9 sets, daily range): BP systolic 120–133; BP diastolic 67–81; PULSE 82–96; RESP 18; TEMP 36.8; O2SAT 93; BMI 19.5
[2024-08-19] MEDS: METHYLPREDNISOLONE SOD SUCC 125MG VIAL 125 MG IV (09:00)
[2024-08-19] MEDS: ACETAMINOPHEN 325MG TAB 650 MG PO (09:00)
[2024-08-19] MEDS: diphenhydrAMINE 50MG CAPSULE 50 MG PO (09:00)
[2024-08-19 09:12] LABS: Basophils % 0.6 % (0.1-2.0); Eosinophils # 0.4 K/mm3 (0.0-0.4); Eosinophils % 7.1 % (0.1-12.0); Hematocrit 34.4 % (37.0-47.0); Hemoglobin 11.4 g/dL (12.2-16.2); Lymphocytes # 1.3 K/mm3 (0.7-4.5); Lymphocytes % 25.9 % (10-50); Mean Corpuscular HGB Conc 33.1 g/dL (31.8-35.4); Mean Corpuscular Hemoglobin 31.1 pg (27.0-31.2); Mean Platelet Volume 9.5 fl (7.4-10.4); Monocytes # 0.6 K/mm3 (0.1-1.0); Monocytes % 12.4 % (1.7-9.3); Neutrophils # 2.7 K/mm3 (1.8-7.8); Neutrophils % 53.8 % (37.0-80.0); Platelet Count 377 K/mm3 (142-424); Red Blood Count 3.66 M/mm3 (4.20-5.40); Red Cell Distribution Width 12.9 % (11.5-17.5); White Blood Count 5.1 K/mm3 (4.8-10.8)
[2024-08-19] MEDS: SODIUM CHLORIDE 0.9% 50ML BAG 50 ML IV (09:40)
[2024-08-19] MEDS: RITUXIMAB 1,000 MG in 0.9 % SODIUM CHLORIDE 500 ML 50 MG IV (09:40)
== END 2024-08-19 13:15 | disposition home or self-care (01) ==
LOC: INF 08:44
PROVIDERS: PCP Physician Assistant; Visit Provider Student in an Organized Health Care Education/Training Program
DX: M05.79 Rheumatoid arthritis with rheumatoid factor of multiple sites without organ or systems involvement (principal)
CPT/HCPCS: 85025; 96413; 96415; J2919; J9312

== ENCOUNTER 2025-03-25 18:29 | Emergency (ER) | payer MEDICAID, SELFPAY ==
--- OUTSIDE RECORDS SUMMARY | 2024-11-13 09:45 | XMS_ITS ---
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 ; Neuralgia and neuritis, unspecified M79.2 ; Chronic pain syndrome G89.4 and Radiculopathy, thoracic region M54.14 Assessments Encounter Date Diagnosis (ICD Code) Assessment Notes Treatment Notes Treatment Clinical Notes Section Notes 11/13/2024 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 Portions of the physical examination were assisted by the medical research assistant as instructed during the audiovisual telemedicine visit. [...] S22.060S) 09/18/24 The patient presents to the [facility] office in [place], [place] for an audiovisual-te lemedicine visit via [employer].The patient was evaluated by the medical research assistant and a urine drug screen was obtained as well as vital signs. Portions of the physical examination were assisted by the medical research assistant as instructed during the audiovisual telemedicine visit. [...] M54.13) 09/18/24 The patient presents to the [facility] office in [place], [place] for an audiovisual-te lemedicine visit via D[employer].The patient was evaluated by the medical research assistant and a urine drug screen was obtained as well as vital signs. Portions of the physical examination were assisted by the medical research assistant as instructed during the audiovisual telemedicine visit. [...] M47.813) 09/18/24 The patient presents to the [facility] office in [place], [place] for an audiovisual-te lemedicine visit via D[employer].The patient was evaluated by the medical research assistant and a urine drug screen was obtained as well as vital signs. Portions of the physical examination were assisted by the medical research assistant as instructed during the audiovisual telemedicine visit. [...] M79.2) 09/18/24 The patient presents to the [facility] office in [place], [place] for an audiovisual-te lemedicine visit via [employer].The patient was evaluated by the medical research assistant and a urine drug screen was obtained as well as vital signs. Portions of the physical examination were assisted by the medical research assistant as instructed during the audiovisual telemedicine visit. [...] G89.4) 09/18/24 The patient presents to the [facility] office in [place] for an audiovisual-te lemedicine visit via [employer].The patient was evaluated by the medical research assistant and a urine drug screen was obtained as well as vital signs. Portions of the physical examination were assisted by the medical research assistant as instructed during the audiovisual telemedicine visit. [...] M54.14) 09/18/24 The patient presents to the [facility] office in [place], [place] for an audiovisual-te lemedicine visit via [employer].The patient was evaluated by the medical research assistant and a urine drug screen was obtained as well as vital signs. Portions of the physical examination were assisted by the medical research assistant as instructed during the audiovisual telemedicine visit. 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 Refill GBP [...] physician Progress Notes * Erinn PETTY LDOB:1970 (54 yo F)Acc No.[id number]:11/13/2024 FollowUP Patient: Erinn KING Provider: Luh Page II, M.D. :1970 A ge:54 Y S ex:Female Date:11/13/2024 Address:[address] [place], [id number] Subjective: * Chief Complaints: * 1 . [...] touch in that area. Former pt of [facility]. Pt self discharged due to wanting [...] Deep Vein Thrombosis 2016 / managed by [facility] , GERD 2012 /managed by Dr.Dixie Arenas, Hypertension 2014/ managed by , lung cancer diagnosed 2024, managed by . * Surgical History: R T Carpal Tunnel Release / Dr.Dixie Arenas / (OP) 2004, [facility]. * Hospitalization/Major [...] * Vitals: * Examination: G eneral Examination: Nurse/Naturopathic Physician: David núñez (Brenda Galvan 09/18/2024 1:37:49 PM > . General Appearance: T he patient is alert and oriented and cooperative for evaluation. HEENT: unremarkable. Heart: r egular rate via radial pulse. Skin visible skin normal. T horacic Spine/Upper Back: Palpation: tenderness at the mid thoracic . ? Assessment: * Assessment: 1. 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 Portions of the physical examination were assisted by the medical research assistant as instructed during the audiovisual telemedicine visit. [...] ENCOUNTER AND OVERSIGHT: Consult Performed By: Alejandro crisostomo(STERILE PRODUCTS PROCESSOR-BG)Mini 09/18/2024 12:50:12 PM > . c ollaborated treatment plan with Luh Page M.D., supervising physician. * Follow Up: 2 Months * * Electronic signature of Ernesto Page II, M.D. on 03/28/2025 at 07:32 AM CDT Sign off status: Pending * Provider: Luh Page II, M.D. Date: 0 11/13/2024 Generated for Ginger tomlin/Felipe/Maniitting on: 0 03/28/2025 07:32 AM CDT History and Physical Notes * [...] touch in that area. Former pt of [facility]. Pt self discharged due to wanting [...] for 1-2 months PREVIOUS PAIN CLINIC CARE: [facility] COMPLIANCE RISK ASSESSMENT AND STRATIFICATI ON: [...] cooperative for evaluation Skin visible skin normal Nurse/Naturopathic Physician: Anthony (Raad)Jose Manuel 09/18/2024 1:37:49 PM > Thoracic Spine/Upper Back Palpation: tenderness at t he mid thoracic
--- OUTSIDE RECORDS SUMMARY | 2024-12-09 12:00 | XMS_ITS ---
Author Organization [facility] Address [address] [place] [address] Care Team Providers Care Exterminator Termite Name Role Phone Padmininatalia Connor GASCA Unavailable [phone] Kiana Wallace Mem Unavailable U navailable Allergies [...] Diagnosis [facility] [address] [place] [address] 12/09/2024 Connor Page Other [facility] (current) drug therapy Z79.899 ; Wedge compression fracture of T7-T8 vertebra, sequela S22.060S ; Radiculopathy, cervicothoracic region M54.13 ; Spondylosis without myelopathy or radiculopathy, 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 ; Neuralgia and neuritis, unspecified M79.2 ; Chronic pain syndrome G89.4 and Radiculopathy, thoracic region M54.14 Assessments Encounter Date Diagnosis (ICD Code) Assessment Notes Treatment Notes Treatment Clinical Notes Section Notes 12/09/2024 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 Portions of the physical examination were assisted by the medical biller/coder as instructed during the audiovisual telemedicine visit. [...] S22.060S) 09/18/24 The patient presents to the [facility] office in [place], [place] for an audiovisual-te lemedicine visit via [employer].The patient was evaluated by the medical biller/coder and a urine drug screen was obtained as well as vital signs. Portions of the physical examination were assisted by the medical biller/coder as instructed during the audiovisual telemedicine visit. [...] M54.13) 09/18/24 The patient presents to the [facility] office in [place], [place] for an audiovisual-te lemedicine visit via [employer].The patient was evaluated by the medical biller/coder and a urine drug screen was obtained as well as vital signs. Portions of the physical examination were assisted by the medical biller/coder as instructed during the audiovisual telemedicine visit. [...] M47.813) 09/18/24 The patient presents to the [facility] office in [place], [place] for an audiovisual-te lemedicine visit via [employer].The patient was evaluated by the medical biller/coder and a urine drug screen was obtained as well as vital signs. Portions of the physical examination were assisted by the medical biller/coder as instructed during the audiovisual telemedicine visit. [...] M79.2) 09/18/24 The patient presents to the [facility] office in [place], [place] for an audiovisual-te lemedicine visit via [employer].The patient was evaluated by the medical biller/coder and a urine drug screen was obtained as well as vital signs. Portions of the physical examination were assisted by the medical biller/coder as instructed during the audiovisual telemedicine visit. [...] G89.4) 09/18/24 The patient presents to the [facility] office in [place] for an audiovisual-te lemedicine visit via [employer].The patient was evaluated by the medical biller/coder and a urine drug screen was obtained as well as vital signs. Portions of the physical examination were assisted by the medical biller/coder as instructed during the audiovisual telemedicine visit. [...] M54.14) 09/18/24 The patient presents to the [facility] office in [place] for an audiovisual-te lemedicine visit via [employer].The patient was evaluated by the medical biller/coder and a urine drug screen was obtained as well as vital signs. Portions of the physical examination were assisted by the medical biller/coder as instructed during the audiovisual telemedicine visit. 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 Refill GBP [...] * Erinn PETTY LDOB:1970 (54 yo F)Acc No.[id number]:12/09/2024 FollowUP Patient: Erinn KING Provider: Luh Page II, M.D. :1970 A ge:54 Y S ex:Female Date:12/09/2024 Address:[address] [place], [id number] Subjective: * Chief Complaints: * 1 . [...] touch in that area. Former pt of [facility]. Pt self discharged due to wanting [...] Deep Vein Thrombosis 2016 / [facility] , GERD 2012 /managed by Dr.Dixie Arenas, Hypertension 2014/ managed by , lung cancer diagnosed 2024, managed by . * Surgical History: R T Carpal Tunnel Release / Dr.Dixie Arenas / (OP) 2004, Hysterectomy / [facility] / 1 week stay 1995. [...] * Vitals: * Examination: G eneral Examination: Nurse/Shadowgraph Operator: David núñez (MA-[facility])Brenad 09/18/2024 1:37:49 PM > . General Appearance: T he patient is alert and oriented and cooperative for evaluation. HEENT: unremarkable. Heart: r egular rate via radial pulse. Skin visible skin normal. T horacic Spine/Upper Back: Palpation: tenderness at the mid thoracic . ? Assessment: * Assessment: 1. O ther [facility] (current) drug therapy - Z79.899 (Primary) 2 [...] M54.14 09/18/24 The patient presents to the [facility] office in [place], [place] for an audiovisual-telemedicine visit via [employer].The patient was evaluated by the medical biller/coder and a urine drug screen was obtained as well as vital signs. Portions of the physical examination were assisted by the medical biller/coder as instructed during the audiovisual telemedicine visit. [...] ENCOUNTER AND OVERSIGHT: Consult Performed By: Alejandro crisostomo(MOLD WORKER-BG)Mini 09/18/2024 12:50:12 PM > . c ollaborated treatment plan with Luh Page M.D., supervising physician. * Follow Up: 2 Months * * Electronic signature of Ernesto Page II, M.D. on 03/28/2025 at 07:34 AM CDT Sign off status: Pending * Provider: Luh Page II, M.D. Date: 0 12/09/2024 Generated for Ginger tomlin/Felipe/Oskar on: 0 03/28/2025 07:34 AM CDT History and Physical Notes * [...] touch in that area. Former pt of [facility]. Pt self discharged due to wanting [...] for 1-2 months PREVIOUS PAIN CLINIC CARE: [facility] COMPLIANCE RISK ASSESSMENT AND STRATIFICATI ON: [...] cooperative for evaluation Skin visible skin normal Nurse/Shadowgraph Operator: Anthony (MA-[facility])Jose Manuel 09/18/2024 1:37:49 PM > Thoracic Spine/Upper Back Palpation: tenderness at t he mid thoracic
--- OUTSIDE RECORDS SUMMARY | 2025-02-05 10:00 | XMS_ITS | Encounter Summary ---
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 [address] 04/09/2025 9:30 AM EDT Office Visit [facility] CC Hematology/BMT and Cellular Therapy Program [address] [address] Mini Mccormack MD [address] [facility] [address] [place] [address] 04/21/2025 10:30 AM EDT Appointment [facility] Radiation 800 [facility]. [id number] [place] [phone] Anusha Martines APRN, DNP 800 [facility] [address] [place] [address] 04/23/2025 11:10 AM EDT Office Visit [facility] [address] [place] [address] Dunia Menard APRN [address] [place] [address] 05/26/2025 9:00 AM EDT Office Visit [facility] [employer] [facility] [address], [address] [place] [address] June Jensen MD [address] [place] [address] 06/02/2025 3:45 PM EDT Office Visit [facility] [address] [place] [address] Mickie Crocker DO [address] [place] [address] documented as of this encounter Visit Diagnoses Diagnosis Encounter for palliative care- Primary Cancer related pain Chronic pain syndrome Nausea Nausea alone documented in this encounter Additional Health Concerns Assessment Noted Time PHQ-9 Depression Total Score: 6 02/06/20 25 11:00 AM EDT A fall risk assessment has been complete d for the patient 01/20/2025 1:32 PM EDT A Body Mass Index follow-up plan has been documented for the patient 01/21/2025 3:27 PM EDT documented as of this encounter Care Teams Feed And Farm Management Adviser Relationship Specialty Start Date End Date Kiana Arenas PA [address] [facility] [place] [address] PCP - General 12/18/20 Grey Wu MD [address] [place] [address] Consulting Physician Radiation Oncology 09/16/24 Mini Mccormack MD [address] [place] [address] Consulting Physician Palliative Medicine 11/27/24 Alonzo Ritter MD 800 [facility] [address] [address] Consulting Physician Medical Oncology 11/27/24 documented as of this encounter
--- OUTSIDE RECORDS SUMMARY | 2025-02-17 07:30 | XMS_ITS | Encounter Summary ---
Author Organization [facility] Address [address] [place] [address] Care Team Providers Care Distribution Center Assistant Name Role Phone Kiana Arenas Primary Care Provider [phone] Grey Wu MD Unavailable [phone] Mini Cordova MD Unavailable [phone] Alonzo Ritter MD Unavailable Encounter Details Date Type Department Care Team (Latest Contact Info) Description 02/17/2025 7:30 AM EDT - 02/17/2025 2:44 PM EDT Hospital Encounter [facility] Radiation [address] [id number] [place] [address] Discharge Disposition: Still a Patient Social History Tobacco Use Types Packs/Day Years [...] on file documented as of this encounter Medications at Time of Discharge albuterol (2.5 MG/3ML) 0.083% nebulizer solution 11/05/2021 alendronate (Fosamax) 70 MG tablet Take 1 tablet (70 mg) by mouth 1 (one) time per week. 11/05/2021 Aspirin Low Dose 81 MG EC tablet Take 1 tablet (81 mg) by mouth in the morning. 04/27/2024 B-D 3CC LUER-EDUARDO SYR 25GX1 25G X 1 3 ML misc 11/05/2021 B-D UF III MINI PEN NEEDLES 31G X 5 MM misc See administration instructions. 07/20/2021 buprenorphine (Butrans) 15 MCG/HRIndication s:Cancer related pain,Chronic pain syndrome,Encount er for palliative care Place 1 patch on the skin 1 time per week over 168 hours. 4 patch 2 02/11/2025 Calcium + Vitamin D3 600-10 MG-MCG tablet Take 1 tablet by mouth in the morning. 11/05/2021 carvedilol (Coreg) 3.125 MG tablet Take 1 tablet (3.125 mg) by mouth in the morning and 1 tablet (3.125 mg) before bedtime. 11/05/2021 cholecalciferol (Vitamin D3) 25 MCG (1000 UT) tablet Take 1 tablet (1,000 Units) by mouth in the morning. 11/05/2021 cyanocobalamin (Vitamin B-12) 1000 MCG/ML injection 1 mL (1,000 mcg) every 30 (thirty) days. 11/05/2021 ergocalciferol 1.25 MG (74241 UT) capsule Take 1 capsule (50,000 Units) by mouth 1 (one) time per week. 11/05/2021 estradiol (Estrace) 1 MG tablet Take 1 tablet (1 mg) by mouth in the morning. 11/05/2021 furosemide (Lasix) 40 MG tablet Take 1 tablet by mouth daily. 01/05/2025 hydrOXYzine pamoate (Vistaril) 25 MG capsule Take 1 capsule by mouth 3 times a day as needed for anxiety. 01/31/2025 ibuprofen 800 MG tablet Take 1 tablet by mouth every 6 hours as needed for mild pain or moderate pain. 01/05/2025 isosorbide mononitrate ER (Imdur) 30 MG 24 hr tablet Take 1 tablet (30 mg) by mouth in the morning. 04/27/2024 latanoprost (Xalatan) 0.005 % ophthalmic solution Administer 1 drop into both eyes in the morning. 12/27/2022 levothyroxine (Synthroid, Levoxyl) 137 MCG tablet Take 1 tablet (137 mcg) by mouth in the morning. 11/04/2021 montelukast (Singulair) 10 MG tablet 11/05/2021 naloxone (Narcan) 4 mg/0.1 mL nasal spray 1. Give 1 spray in nostril for no/slow breathing or cannot wake after opioid use 2. Call 911 3. Repeat in other nostril if symptoms continue 1 each 09/30/2024 omeprazole (PriLOSEC) [address] capsule 11/05/2021 phenazopyridine (Pyridium) 200 MG tablet Take 1 tablet (200 mg) by mouth as needed in the morning and 1 tablet (200 mg) as needed at noon and 1 tablet (200 mg) as needed in the evening. 04/19/2021 potassium chloride ER (Micro-K) 10 MEQ ER capsule Take 1 capsule by mouth daily. 12/03/2024 ProAir HFA 108 (90 Base) MCG/ACT inhaler 11/05/2021 promethazine (Phenergan) 12.5 MG tabletIndication s:Encounter for palliative care,Nausea Take 1 tablet by mouth every 6 hours as needed for nausea or vomiting. 60 tablet 2 02/05/2025 Roflumilast 250 MCG tablet Take 1 tablet (250 mcg) by mouth 1 (one) time each day. 28 tablet 11 02/28/2024 rOPINIRole (Requip) 0.25 MG tablet Take 1 tablet (0.25 mg) by mouth nightly. 01/12/2023 Slow Release Iron 45 MG tablet controlled-relea se Take 1 tablet by mouth in the morning. 11/05/2021 tiZANidine (Zanaflex) 4 MG tablet 12/15/2024 Trelegy Ellipta 100-62.5-25 MCG/ACT aerosol powder Inhale 1 puff. 05/17/2024 amitriptyline (Elavil) 25 MG tabletIndication s:Chronic pain syndrome Take 1 tablet by mouth nightly. 30 tablet 2 02/05/2025 03/05/20 25 formoterol (Perforomist) 20 MCG/2ML nebulizer solutionIndicati ons:COPD, severe (CMS/HCC) Take 2 mL (20 mcg) by nebulization 2 (two) times a day. 120 mL 11 12/28/2023 03/04/20 25 gabapentin (Neurontin) 600 MG tablet Take 1 tablet by mouth 3 times a day. 90 tablet 2 12/09/2024 03/05/20 25 oxyCODONE-acetam inophen (Percocet) 7.5-325 MG tabletIndication s:Cancer related pain,Chronic pain syndrome,Encount er for palliative care Take 1 tablet by mouth 5 times a day as needed for severe pain for up to 14 days. 70 tablet 02/17/2025 03/05/20 25 oxyCODONE-acetam inophen (Percocet) 7.5-325 MG tabletIndication s:Cancer related pain,Chronic pain syndrome,Encount er for palliative care Take 1 tablet by mouth 5 times a day as needed for severe pain for up to 14 days. 70 tablet 03/03/2025 03/05/20 25 predniSONE (Deltasone) 5 MG tabletIndication s:Seropositive rheumatoid arthritis of multiple sites (CMS/HCC) Take 2 tablets by mouth daily. 60 tablet 1 01/22/2025 03/11/20 25 revefenacin (Yupelri) 175 MCG/3ML nebulizer solutionIndicati ons:COPD, severe (CMS/HCC) Take 3 mL (175 mcg) by nebulization 1 (one) time each day. 90 mL 11 12/28/2023 03/04/20 25 documented as of this encounter Plan of Treatment Upcoming Encounters Date Type Department Care Team (Late st Contact Info) Description 04/09/2025 9:00 AM EDT Clinical Support [facility] Hematology/BMT and Cellular Therapy Program [address] [place] [address] [place] [address] 04/09/2025 9:30 AM EDT Office Visit [facility] Hematology/BMT and Cellular Therapy Program [address] [place] [address] Mini Cordova MD [address] [place] [address] 04/21/2025 10:30 AM EDT Appointment [facility] Radiation [id number] [place] [address] Anusha Martines, FISCAL OFFICER, DNP [address] [place] [address] 04/23/2025 11:10 AM EDT Office Visit [facility] Medicine Specialties [address] [place] [address] Dunia Menard, JOVANNY [address] [place] [address] 05/26/2025 9:00 AM EDT Office Visit [facility] [address] [facility], [address] [place] [address] June Jensen MD [address] [facility] [address] [place] [address] 06/02/2025 3:45 PM EDT Office Visit [facility] Medicine Specialties [address] [place] [address] Mickie Crocker DO [address] [place] [address] documented as of this encounter Visit Diagnoses Not on filedocumented in this encounter Additional Health Concerns Assessment Noted Time PHQ-9 Depression Total Score: 6 02/06/20 25 11:00 AM EDT A fall risk assessment has been complete d for the patient 01/20/2025 1:32 PM EDT A Body Mass Index follow-up plan has been documented for the patient 01/21/2025 3:27 PM EDT documented as of this encounter Care Teams Distribution Center Assistant Relationship Specialty Start Date End Date Kiana Arenas PA [address] [facility] [place] [address] PCP - General 12/18/20 Grey Wu MD 800 [facility] [address] [place] [address] Consulting Physician Radiation Oncology 09/16/24 Mini Cordova MD [address] [place] [address] Consulting Physician Palliative Medicine 11/27/24 Alonzo Ritter MD [address] [place] [address] Consulting Physician Medical Oncology 11/27/24 documented as of this encounter
--- OUTSIDE RECORDS SUMMARY | 2025-02-17 14:45 | XMS_ITS | Encounter Summary ---
Author Organization [facility] Address [address] [id number] Care Team Providers Care Entry Level Web Developer Name Role Phone Kiana Arenas Primary Care Provider [phone] Grey Wu MD Unavailable [phone] Mini Cordova MD Unavailable [phone] Alonzo Ritter MD Unavailable Reason for Referral * Radiation Therapy (Routine) - Authorized Specialty Diagnoses / Procedures Referred By Contac t Referred To Contact Radiation Oncology Diagnoses Malignant neoplasm of lower lobe of right lung (CMS/HCC) Procedures Rad Onc Intent to Treat Rad Onc Intent to Treat Grey Wu MD [address] [facility] [address] [place] [address] Phone: tel: fax: [facility] Radiation [id number] [place] [address] Phone: tel: fax: Referral ID Status Reason Start Date Expiration Date Visits Requested Visits Authorized [id number] Authorized Perform Procedure 02/14/2025 08/16/2026 1 1 Encounter Details Date Type Department Care Team (Latest Contact Info) Description 02/17/2025 2:45 PM EDT - 02/17/2025 11:59 PM EDT Hospital Encounter [facility] Radiation [address] [place] [address] Grey Wu MD [address] [place] [address] [address] [place] [address] Malignant neoplasm of lower lobe of right lung (CMS/HCC) (Primary Dx) Discharge Disposition: Still a Patient Social History [...] 30 (thirty) days. 11/05/2021 ergocalciferol 1.25 MG (41758 UT) capsule Take 1 capsule (50,000 Units) [...] Upcoming Encounters Date Type Department Care Team ([facility] Contact Info) Description 04/09/2025 9:00 AM EDT Clinical Support [facility] Hematology/BMT and Cellular Therapy Program [address] [phone] 04/09/2025 9:30 AM EDT Office Visit [facility] CC Hematology/BMT and Cellular Therapy Program [address] [phone] Mini Cordova MD [address] [facility] [address] [place] [address] 04/21/2025 10:30 AM EDT Appointment [facility] CC Radiation 800 [facility]. [address] [place] [address] Anusha Martines APRN, DNP 800 [facility] [address] [place] [address] 04/23/2025 11:10 AM EDT Office Visit [facility] [address] [place] [address] Dunia Menard APRN [address] [place] [address] 05/26/2025 9:00 AM EDT Office Visit [facility] [employer] [facility] [address], [address] [place] [address] June Jensen MD [address] [place] [address] 06/02/2025 3:45 PM EDT Office Visit [facility] [address] [place] [address] Mickie Crocker DO [address] [place] [address] Scheduled Orders Name Type Priority Associated Diagnoses Orde r Schedule Rad Onc Intent to Treat Radiation Oncology Routine Malignant neoplasm of lower lobe of right lung (CMS/HCC) 1 Occurrences starting 02/14/2025 until 08/18/2026 documented as of this encounter Visit Diagnoses Diagnosis Malignant neoplasm of lower lobe of right lung (CMS/HCC)- Primary documented in this encounter Additional Health Concerns Assessment Noted Time PHQ-9 Depression Total Score: 6 02/06/20 25 11:00 AM EDT A fall risk assessment has been complete d for the patient 01/20/2025 1:32 PM EDT A Body Mass Index follow-up plan has been documented for the patient 01/21/2025 3:27 PM EDT documented as of this encounter Care Teams Entry Level Web Developer Relationship Specialty Start Date End Date Kiana Arenas PA [address] [facility] [place] [address] PCP - General 12/18/20 Grey Wu MD [address] [place] [address] Consulting Physician Radiation Oncology 09/16/24 Mini Cordova MD [address] [facility] [address] [place] [address] Consulting Physician Palliative Medicine 11/27/24 Alonzo Ritter MD [address] [facility] [address] [place] [address] Consulting Physician Medical Oncology 11/27/24 documented as of this encounter
--- OUTSIDE RECORDS SUMMARY | 2025-02-24 07:30 | XMS_ITS | Encounter Summary ---
Author Organization [facility] Address [address] [place] [address] Care Team Providers Care Phytopathology Teacher Name Role Phone Kiana Arenas Primary Care Provider [phone] Grey Wu MD Unavailable [phone] Mini Cordova MD Unavailable [phone] Alonzo Ritter MD Unavailable Encounter Details Date Type Department Care Team (Latest Contact Info) Description 02/24/2025 7:30 AM EDT - 02/24/2025 11:59 PM EDT Hospital Encounter [facility] Radiation [id number] [place] [address] Discharge Disposition: Still a Patient Social History [...] 30 (thirty) days. 11/05/2021 ergocalciferol 1.25 MG (68449 UT) capsule Take 1 capsule (50,000 Units) [...] [facility] Hematology/BMT and Cellular Therapy Program [address] [place] [address] [place] [address] 04/09/2025 9:30 AM EDT Office Visit [facility] Hematology/BMT and Cellular Therapy Program [address] [place] [address] Mini Cordova MD [address] [place] [address] 04/21/2025 10:30 AM EDT Appointment [facility] Radiation [id number] [place] [address] Anusha Martines, TUBE ROLLER, DNP [address] [place] [address] 04/23/2025 11:10 AM EDT Office Visit [facility] Medicine Specialties [address] [place] [address] Dunia Menard, JOVANNY [address] [place] [address] 05/26/2025 9:00 AM EDT Office Visit [facility] Bone [facility] Mineral Metabolism [address] [facility], [address] [place] [address] June Jensen MD [address] [facility] [address] [place] [address] 06/02/2025 3:45 PM EDT Office Visit [facility] Medicine Specialties [address] [place] [address] Mickie Crocker DO [address] [place] [address] documented as of this encounter [...] documented as of this encounter Care Teams Phytopathology Teacher Relationship Specialty Start Date End Date Kiana Arenas PA [address] [facility] [place] [address] PCP - General 12/18/20 Grey Wu MD 800 [facility] [address] [place] [address] Consulting Physician Radiation Oncology 09/16/24 Mini Cordova MD [address] [place] [address] Consulting Physician Palliative Medicine 11/27/24 Alonzo Ritter MD [address] [place] [address] Consulting Physician Medical Oncology 11/27/24 documented as of this encounter
--- OUTSIDE RECORDS SUMMARY | 2025-03-03 09:24 | XMS_ITS | Encounter Summary ---
Author Organization [facility] Address [address] [place] [address] Care Team Providers Care Machine Cementer Name Role Phone Kiana Arenas Primary Care Provider [phone] Grey Wu MD Unavailable [phone] Mini Cordova MD Unavailable [phone] Alonzo Ritter MD Unavailable Encounter Details Date Type Department Care Team (Latest Contact Info) Description 03/03/2025 9:24 AM EDT - 03/03/2025 11:59 PM EDT Hospital Encounter [facility] Radiation [address] [place] [address] Discharge Disposition: Still a Patient Social History [...] 30 (thirty) days. 11/05/2021 ergocalciferol 1.25 MG (17596 UT) capsule Take 1 capsule (50,000 Units) [...] nausea or vomiting. 60 tablet 2 02/05/2025 rOPINIRole (Requip) 0.25 MG tablet Take 1 [...] 1 (one) time each day. 90 mL 12/28/2023 03/04/20 25 documented as of this encounter Miscellaneous Notes * Progress Notes - Grey Wu MD - 03/05/2025 3:40 PM EDT Diagnosis: Primary C34.31 - Malignant neoplasm of lower lobe, right bronchus or lung, Diagnosed 10/02/2024 (Active) Date of Service: 03/05/2025 ERINN NUNEZ received 1 of 5 scheduled Stereotactic Body Radiation Treatment for their C34.31 - Malignant neoplasm of lower lobe, right bronchus or lung, Diagnosed 10/02/2024 (Active) on 03/05/2025 under the direction of Grey Wu MD. The patient was immobilized in the stereotactic body frame utilizing a customized mold. Abdominal compression was used to decrease internal organ motion. The stereotactic dose of 1000 cGy was received without difficulty. The patient tolerated treatment today. Therapist Initials: ew Therapist Initials: hv/allison Other Clinic Staff Initials: Click or tap here to enter text. IMPRESSION: Today?s treatment was completed successfully. The treatment parameters were establishedwithout difficulty. This document was electronically approved by: Grey Wu MD. documented in this encounter Plan of Treatment Upcoming Encounters Date Type Department Care Team (Late st Contact Info) Description 04/09/2025 9:00 AM EDT Clinical Support [facility] Hematology/BMT and Cellular Therapy Program [address] [address] 04/09/2025 9:30 AM EDT Office Visit [facility] Hematology/BMT and Cellular Therapy Program [address] [address] Mini Cordova MD [address] [place] [address] 04/21/2025 10:30 AM EDT Appointment [facility] CC Radiation [address] [facility] [id number] [place] [address] Anusha Martines APRN, DNP [address] [facility] [address] [place] [address] 04/23/2025 11:10 AM EDT Office Visit [facility] Medicine Specialties [address] [place] [phone] Dunia Menard APRN [address] [place] [address] 05/26/2025 9:00 AM EDT Office Visit [facility] [place] [facility] [address] [facility], [address] [place] [address] June Jensen MD [address] [place] [address] 06/02/2025 3:45 PM EDT [facility] Visit [facility] [address] [place] [address] Mickie Crocker, [address] [place] [address] documented as of this encounter [...] documented as of this encounter Care Teams Machine Cementer Relationship Specialty Start Date End Date Kiana Arenas PA [address] [facility] [place] [address] PCP - General 12/18/20 Grey Wu MD [address] [facility] [address] [place] [address] Consulting Physician Radiation Oncology 09/16/24 Mini Cordova MD [address] [place] [address] Consulting Physician Palliative Medicine 11/27/24 Alonzo Ritter MD 800 [facility] [address] [place] [address] Consulting Physician Medical Oncology 11/27/24 documented as of this encounter
--- OUTSIDE RECORDS SUMMARY | 2025-03-05 09:15 | XMS_ITS | Encounter Summary ---
Author Organization [facility] Address [address] [place] [address] Care Team Providers Care Layout Inspector Name Role Phone Kiana Arenas Primary Care Provider [phone] Grey Wu MD Unavailable [phone] Mini Cordova MD Unavailable [phone] Alonzo Ritter MD Unavailable Encounter Details Date Type Department Care Team (Latest Contact Info) Description 03/05/2025 9:15 AM EDT - 03/05/2025 11:59 PM EDT Hospital Encounter [facility] Radiation [id number] [place] [address] Discharge Disposition: Still a Patient Social History Tobacco Use Types Packs/Day Years Used Date Smoking Tobacco: Every Day Cigarettes 0.3 41.2 Started: 01/17/1984 Passive Smoke Exposure: Current Smokeless Tobacco: Never Comments:Smoking 2-3 cigaret sharyn daily Alcohol Use Standard Drinks/Week Comments Never 0 (1 standard drink = 0.6 oz pur e alcohol) PHQ-2 Answer Date Recorded Patient Health Questionnaire-2 Score 2 03/05/2025 PHQ-9 Answer Date Recorded Patient Health Questionnaire-9 Score 6 03/05/2025 AUDIT-C Answer Date Recorded Q1: How often [...] Little interest or pleasure in doing things More than half the days 03/05/2025 10:00 AM EDT Latonia Villanueva RN Feeling down, depressed, or hopeless Not at all 03/05/2025 10:00 AM EDT Me paulino Villanueva RN Patient Health Questionnaire-2 Score 2 03/05/2025 10:00 AM EDT Leah Villanueva RN * Question Answer Date of Assessment Author Trouble falling or staying asleep, or sleeping too much More than half the days 03/05/2025 10:00 AM DIXONT Latonia Villanueva RN Feeling tired or having little energy Several days 03/05/2025 10:00 AM DIXONT Latonia Villanueva RN Poor appetite or overeating Several days 03/05/2025 10:00 AM DIXONT Latonia Villanueva RN Feeling bad about yourself - or that you are a failure or have let yourself or your family down Not at all 03/05/2025 10:00 AM DIXONT Latonia Villanueva RN Trouble concentrating on things, such as reading the newspaper or watching television Not at all 03/05/2025 10:00 AM DIXONT Latonia Villanueva RN Moving or speaking so slowly that other people could have noticed? Or the opposite - being so fidgety or restless that you have been moving around a lot more than usual. Not at all 03/05/2025 10:00 AM DIXONT Latonia Villanueva RN Thoughts that you would be better off or hurting yourself in some way Not at all 03/05/2025 10:00 AM DIXONT Latonia Villanueva RN Patient Health Questionnaire-9 Score 6 03/05/2025 10:00 AM EDT Latonia Villanueva RN documented as of this encounter Medications at Time of Discharge albuterol (2.5 MG/3ML) 0.083% nebulizer solution 11/05/2021 alendronate (Fosamax) 70 MG tablet Take 1 tablet (70 mg) by mouth 1 (one) time per week. 11/05/2021 amitriptyline (Elavil) 50 MG tablet Take 1 tablet by mouth nightly. 30 tablet 03/05/2025 Aspirin Low Dose 81 MG EC tablet [...] 30 (thirty) days. 11/05/2021 ergocalciferol 1.25 MG (06831 UT) capsule Take 1 capsule (50,000 Units) by mouth 1 (one) time per week. 11/05/2021 estradiol (Estrace) 1 MG tablet Take 1 tablet (1 mg) by mouth in the morning. 11/05/2021 formoterol (Perforomist) 20 MCG/2ML nebulizer solutionIndicati ons:COPD, severe (CMS/HCC) Take 2 mL by nebulization 2 times a day. 120 mL 11 03/04/2025 furosemide (Lasix) 40 MG tablet Take 1 [...] nausea or vomiting. 60 tablet 2 02/05/2025 revefenacin (Yupelri) 175 MCG/3ML nebulizer solutionIndicati ons:COPD, severe (CMS/HCC) Take 3 mL by nebulization daily. 90 mL 11 03/04/2025 rOPINIRole (Requip) 0.25 MG tablet Take 1 tablet (0.25 mg) by mouth nightly. 01/12/2023 Slow Release Iron 45 MG tablet controlled-relea se Take 1 tablet by mouth in the morning. 11/05/2021 tiZANidine (Zanaflex) 4 MG tablet 12/15/2024 Trelegy Ellipta 100-62.5-25 MCG/ACT aerosol powder Inhale 1 puff. 05/17/2024 gabapentin (Neurontin) 600 MG tablet Take 1 tablet by mouth 3 times a day. 90 tablet 2 03/05/2025 03/10/20 25 oxyCODONE-acetam inophen (Percocet) 7.5-325 MG tabletIndication s:Chronic pain syndrome,Cancer related pain,Encounter for palliative care Take 1 tablet by mouth 5 times a day as needed for severe pain for up to 14 days. 70 tablet 03/17/2025 03/17/20 25 oxyCODONE-acetam inophen (Percocet) 7.5-325 MG tabletIndication s:Chronic pain syndrome,Cancer related pain,Encounter for palliative care Take 1 tablet by mouth 5 times a day as needed for severe pain for up to 14 days. 70 tablet 03/31/2025 03/17/20 25 predniSONE (Deltasone) 5 MG tabletIndication s:Seropositive rheumatoid arthritis of multiple sites (CMS/HCC) Take 2 tablets by mouth daily. 60 tablet 1 01/22/2025 03/11/20 25 documented as of this encounter Plan of Treatment Upcoming Encounters Date Type Department Care Team ([facility] st Contact Info) Description 04/09/2025 9:00 AM EDT Clinical Support [facility] Hematology/BMT and Cellular Therapy Program [address] [address] 04/09/2025 9:30 AM EDT Office Visit [facility] Hematology/BMT and Cellular Therapy Program [address] [place] [phone] Mini Cordova MD [address] [place] [phone] 04/21/2025 10:30 AM EDT Appointment [facility] Radiation [address] [facility]. [id number] [place] [address] Anusha Martines, CERT OCCUPATIONAL THERAPY ASST, DNP [address] [place] [address] 04/23/2025 11:10 AM EDT Office Visit [facility] [address] [place] [address] Dunia Menard, CERT OCCUPATIONAL THERAPY ASST [address] [place] [address] 05/26/2025 9:00 AM EDT Office Visit [facility] [address] [facility], [address] [place] [address] June Jensen MD [address] [place] [address] 06/02/2025 3:45 PM EDT Office Visit [facility] [address] [place] [address] Mickie Crocker DO [address] [place] [address] documented as of this encounter Visit Diagnoses Not on filedocumented in this encounter Additional Health Concerns Assessment Noted Time PHQ-9 Depression Total Score: 6 03/05/20 25 10:00 AM EDT A fall risk assessment has been complete d for the patient 01/20/2025 1:32 PM EDT A Body Mass Index follow-up plan has been documented for the patient 01/21/2025 3:27 PM EDT documented as of this encounter Care Teams Layout Inspector Relationship Specialty Start Date End Date Kiana Arenas PA [address] [place] [address] PCP - General 12/18/20 Grey Wu MD [address] [place] [address] Consulting Physician Radiation Oncology 09/16/24 Mini Cordova MD [address] [facility] [address] [place] [address] Consulting Physician Palliative Medicine 11/27/24 Alonzo Ritter MD 800 [facility] [address] [facility] [address] [place] [address] Consulting Physician Medical Oncology 11/27/24 documented as of this encounter
--- OUTSIDE RECORDS SUMMARY | 2025-03-05 09:30 | XMS_ITS | Encounter Summary ---
Author Organization [facility] Address [address] [place] [address] Care Team Providers Care Inspector Dials Name Role Phone Kiana Arenas Primary Care Provider [phone] Grey Wu MD Unavailable [phone] Mini Cordova MD Unavailable [phone] Alonzo Ritter MD Unavailable Reason for Visit * Reason Comments Nurse Visit Encounter Details Date Type Department Care Team ([facility] st Contact Info) Description 03/05/2025 9:30 AM EDT Clinical Support [facility] Hematology/BMT and Cellular Therapy Program [address] [place] [address] [place] [phone] Social History Tobacco Use Types Packs/Day Years [...] Upcoming Encounters Date Type Department Care Team ([facility] st Contact Info) Description 04/09/2025 9:00 AM EDT Clinical Support [facility] Hematology/BMT and Cellular Therapy Program [address] [facility] [place] [address] 04/09/2025 9:30 AM EDT Office Visit [facility] Hematology/BMT and Cellular Therapy Program [address] [facility] [place] [address] Mini Cordova MD [address] [place] [address] 04/21/2025 10:30 AM EDT Appointment [facility] Radiation [id number] [place] [address] Anusha Martines, JOVANNY, DNP [address] [facility] [address] [place] [address] 04/23/2025 11:10 AM EDT Office Visit [facility] Medicine Specialties [address] [place] [address] Dunia Menard, GROUND PRODUCTS DIRECTOR [address] [place] [address] 05/26/2025 9:00 AM EDT Office Visit Professional [facility] [place] [facility] [address] [facility], [address] [place] [address] June Jensen MD [address] [facility] [address] [place] [address] 06/02/2025 3:45 PM EDT Office Visit [facility] Medicine Specialties [address] [place] [address] Obi Mickie, [address] [place] [address] documented as of this encounter [...] documented as of this encounter Care Teams Inspector Dials Relationship Specialty Start Date End Date Kiana Arenas PA [address] [place] [address] PCP - General 12/18/20 Grey Wu MD [address] [facility] [address] [place] [address] Consulting Physician Radiation Oncology 09/16/24 Mini Cordova MD [address] [place] [address] Consulting Physician Palliative Medicine 11/27/24 Alonzo Ritter MD [address] [facility] [address] [place] [address] Consulting Physician Medical Oncology 11/27/24 documented as of this encounter
--- OUTSIDE RECORDS SUMMARY | 2025-03-05 10:00 | XMS_ITS | Encounter Summary ---
Author Organization Healthcare Address [address] [id number] Care Team Providers Care Temporary Receptionist Name Role Phone Kiana Arenas Primary Care Provider [phone] Grey Wu MD Unavailable [phone] Mini Mccormack MD Unavailable [phone] Alonzo Ritter MD Unavailable Reason for Referral * Consultation (Routine) - Authorized Specialty Diagnoses / Procedures Referred By Contac t Referred To Contact Blood and Marrow Transplant Diagnoses Squamous cell carcinoma of right lung Chantell Almaguer APRN, DNP [address] [place] [address] Phone: tel: fax: [facility] Hematology/BMT and Cellular Therapy Program 750 [facility], [address] [place] [address] [place] [address] Phone: tel: fax: Referral ID Status Reason Start Date Expiration Date Visits Requested Visits Authorized [id number] Authorized Specialty Services Required 03/05/2025 09/04/2026 1 1 Scheduling Instructions *Do Not Schedule* - This referral is for managing the [facility] Dietitian workflow. Reason for Visit * Reason Comments Palliative Care Follow-up Med Management Encounter Details Date Type Department Care Team ([facility] Contact Info) Description 03/05/2025 10:00 AM EDT Office Visit [facility] CC Hematology/BMT and Cellular Therapy Program 750 [facility], [address] [place] [place] [address] Chantell Almaguer, FINANCIAL REP, DNP [address] [place] [address] Squamous cell carcinoma of right lung (Primary [...] your refill should be sent. Please Note: [facility] Messages are reviewed between the hours of 8:00am - 4:00pm Monday thru Monday.[employer] messages are not monitored outside of normal business hours. If you have not received a response from our clinic staff within 24-48 hours, please call us at [phone] and select option #1 and then option [...] you. * Progress Notes - Chantell Almaguer, FINANCIAL REP, DNP - 03/05/2025 10:00 AM EDT Palliative [...] yes. Safe medication disposal agreement signed yes. [id number] 02/03/2025 02/03/2025 oxyCODONE/Acetaminophen 70.0 14 7.5 MG/325.0 MG 56.25 Sanjana Carrera [id number] [facility] 1 [id number] 01/20/2025 01/20/2025 oxyCODONE/Acetaminophen 70.0 14 7.5 MG/325.0 MG 56.25 Sanjana Carrera [id number] [facility] 1 [id number] 01/17/2025 12/09/2024 Gabapentin 90.0 30 600 MG NA Mini Mccormack - [id number] [facility] Clinic Pharmacy [facility] 3 [id number] 01/14/2025 01/06/2025 Buprenorphine 4.0 28 0.015 MG/HR NA Megan Chance - [id number] [facility] 1 [id number] 01/06/2025 01/06/2025 oxyCODONE/Acetaminophen 70.0 14 7.5 MG/325.0 MG 56.25 Megan Chance [facility] [id number] [facility] 1 Naloxone prescribed? No, previously prescribed and patient has at home Date of naloxone prescription: 09/30/2024 Date of naloxone education: N/A - Dr. Ritter prescribed date above ASSESSMENT: Erinn Nunez is a 54 y.o. woman with a squamous cell carcinoma of the right lung and end-stage COPD who is seen in the [facility] for symptom management. [...] fractions. Will be staying at [facility] starting tomorrow evening 2. Chronic low back pain, chronic mid thoracic back pain and rib pain: improved/stable Back pain: Experienced for over 20 years. 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 FOLLOW UP: four weeks -- Coordinated with Palliative Care RN Laotnia and Palliative Care clinical pharmacist Yamileth. Chantell [...] (CMS/HCC) 06/22/2016 Bursitis 08/22/2024 Reviewed records from [facility]. Synovial fluid culture negative for growth. Xray [...] MINI PEN NEEDLES 31G X 5 MM [facility] See administration instructions. buprenorphine (Butrans) 15 MCG/HR [...] every 30 (thirty) days. ergocalciferol 1.25 MG (82141 UT) capsule Take 1 capsule (50,000 Units) [...] failure Mother Elise stevens Glaucoma Mother Elise stevens Diabetes Mother Elise hernandezcer Arthritis Mother Elise [...] Upcoming Encounters Date Type Department Care Team ([facility] st Contact Info) Description 04/09/2025 9:00 AM EDT Clinical Support [facility] CC Hematology/BMT and Cellular Therapy Program [address] [place] [address] 04/09/2025 9:30 AM EDT Office Visit [facility] Hematology/BMT and Cellular Therapy Program [address] [place] [address] Mini Mccormack MD [address] [facility] [address] [place] [address] 04/21/2025 10:30 AM EDT Appointment [facility] CC Radiation [address] [place] [address] Anusha Martines, JOVANNY, DNP [address] [place] [address] 04/23/2025 11:10 AM EDT Office Visit [facility] Medicine Specialties [address] [place] [address] Dunia Menard, FINANCIAL REP [address] [place] [address] 05/26/2025 9:00 AM EDT Office Visit Professional [facility] [address] [facility], [address] [place] [address] June Jensen MD [address] [facility] [address] [place] [address] 06/02/2025 3:45 PM EDT Office Visit [facility] Medicine Specialties [address] [place] [address] Mickie Crocker DO [address] [place] [address] Scheduled Referrals Name Type Priority Associated Diagnoses Order Schedule Ambulatory referral to [facility] Oncology Nutrition Outpatient Referral Routine Squamous cell [...] documented as of this encounter Care Teams Temporary Receptionist Relationship Specialty Start Date End Date Kiana Arenas PA [address] [place] [address] PCP - General 12/18/20 Grey Wu MD [address] [facility] [address] [place] [address] Consulting Physician Radiation Oncology 09/16/24 Mini Mccormack MD [address] [place] [address] Consulting Physician Palliative Medicine 11/27/24 Alonzo Ritter MD [address] [facility] [address] [place] [address] Consulting Physician Medical Oncology 11/27/24 documented as of this encounter
--- OUTSIDE RECORDS SUMMARY | 2025-03-07 09:29 | XMS_ITS | Encounter Summary ---
Author Organization [facility] Address [address] [place] [address] Care Team Providers Care Patternmaker Pressure Cast Name Role Phone Kiana Arenas Primary Care Provider [phone] Grey Wu MD Unavailable [phone] Mini Cordova MD Unavailable [phone] Alonzo Ritter MD Unavailable Encounter Details Date Type Department Care Team (Latest Contact Info) Description 03/07/2025 9:29 AM EDT - 03/07/2025 11:59 PM EDT Hospital Encounter [facility] [address] [id number] [place] [address] Discharge Disposition: Still a Patient Social History [...] 30 (thirty) days. 11/05/2021 ergocalciferol 1.25 MG (28005 UT) capsule Take 1 capsule (50,000 Units) [...] Upcoming Encounters Date Type Department Care Team ([facility] st Contact Info) Description 04/09/2025 9:00 AM EDT Clinical Support [facility] Hematology/BMT and Cellular Therapy Program [address] [place] [address] 04/09/2025 9:30 AM EDT Office Visit [facility] Hematology/BMT and Cellular Therapy Program [address] [place] [address] Mini Cordova MD [address] [place] [address] 04/21/2025 10:30 AM EDT Appointment [facility] [address] [id number] [place] [address] Anusha Martines, JOVANNY, DNP [address] [place] [address] 04/23/2025 11:10 AM EDT Office Visit [facility] Medicine Specialties [address] 2[address] [place] [address] Dunia Menard, JOVANNY [address] [place] [address] 05/26/2025 9:00 AM EDT Office Visit Professional [facility] [address] [facility], [address] [place] [address] June Jensen MD [address] 3[address] [place] [address] 06/02/2025 3:45 PM EDT Office Visit [facility] Medicine Specialties [address] 2[address] [place] [address] Mickie Crocker DO [address] [place] [address] documented as of this encounter [...] documented as of this encounter Care Teams Patternmaker Pressure Cast Relationship Specialty Start Date End Date Kiana Arenas PA [address] [place] [address] PCP - General 12/18/20 Grey Wu MD [address] [facility] [address] [place] [address] Consulting Physician Radiation Oncology 09/16/24 Mini Cordova MD [address] [facility] [address] [place] [address] Consulting Physician Palliative Medicine 11/27/24 Alonzo Ritter MD 800 [facility] [address] [place] [address] Consulting Physician Medical Oncology 11/27/24 documented as of this encounter
--- OUTSIDE RECORDS SUMMARY | 2025-03-10 03:25 | XMS_ITS | Encounter Summary ---
Author Organization [facility] Address [address] [place] [address] Care Team Providers Care Core Blower Name Role Phone Kiana Arenas Primary Care Provider [phone] Grey Wu MD Unavailable [phone] Mini Cordova MD Unavailable [phone] Alonzo Ritter MD Unavailable Encounter Details Date Type Department Care Team (Latest Contact Info) Description 03/10/2025 3:25 AM EDT - 03/10/2025 11:59 PM EDT Hospital Encounter [facility] [address] [id number] [place] [address] Discharge Disposition: Still a Patient Social History [...] 30 (thirty) days. 11/05/2021 ergocalciferol 1.25 MG (23051 UT) capsule Take 1 capsule (50,000 Units) [...] 03/11/20 25 documented as of this encounter Miscellaneous [...] Upcoming Encounters Date Type Department Care Team ([facility] st Contact Info) Description 04/09/2025 9:00 AM EDT Clinical Support [facility] Hematology/BMT and Cellular Therapy Program [address] [address] 04/09/2025 9:30 AM EDT Office Visit [facility] Hematology/BMT and Cellular Therapy Program [address] [address] Mini Cordova MD [address] [place] [address] 04/21/2025 10:30 AM EDT Appointment [facility] Radiation 800 [facility]. [id number] [place] [address] Anusha Martines APRN, DNP 800 [facility] [address] [place] [address] 04/23/2025 11:10 AM EDT Office Visit [facility] Medicine Specialties [address] 2[address] [place] [address] Dunia Menard APRN [address] [place] [address] 05/26/2025 9:00 AM EDT Office Visit [facility] [address] [facility], [address] [place] [address] June Jensen MD [address] [facility] 3rd [address] [place] [address] 06/02/2025 3:45 PM EDT Office Visit [place] [facility] [address] [place] [address] Mickie Crocker, [address] [place] [address] documented as of this encounter [...] documented as of this encounter Care Teams Core Blower Relationship Specialty Start Date End Date Kiana Arenas PA [address] [facility] [address] PCP - General 12/18/20 Grey Wu MD [address] [place] [address] Consulting Physician Radiation Oncology 09/16/24 Mini Cordova MD [address] [place] [address] Consulting Physician Palliative Medicine 11/27/24 Alonzo Ritter MD [address] [place] [address] Consulting Physician Medical Oncology 11/27/24 documented as of this encounter
--- OUTSIDE RECORDS SUMMARY | 2025-03-12 08:50 | XMS_ITS | Encounter Summary ---
Author Organization [facility] Address [address] [place] [address] Care Team Providers Care Hone Operator Name Role Phone Kiana Arenas Primary Care Provider [phone] Grey Wu MD Unavailable [phone] Mini Cordova MD Unavailable [phone] Alonzo iRtter MD Unavailable Encounter Details Date Type Department Care Team (Latest Contact Info) Description 03/12/2025 8:50 AM EDT - 03/12/2025 11:59 PM EDT Hospital Encounter [facility] [address] [id number] [place] [address] Discharge Disposition: Still a Patient Social History [...] 30 (thirty) days. 11/05/2021 ergocalciferol 1.25 MG (80565 UT) capsule Take 1 capsule (50,000 Units) by mouth 1 (one) time per week. 11/05/2021 estradiol (Estrace) 1 MG tablet Take 1 tablet (1 mg) by mouth in the morning. 11/05/2021 formoterol (Perforomist) 20 MCG/2ML nebulizer solutionIndicati ons:COPD, severe ([facility]/HCC) Take 2 mL by nebulization 2 times [...] tabletIndication s:Seropositive rheumatoid arthritis of multiple sites ([facility]) Take 2 tablets by mouth daily. 180 [...] MCG/ACT aerosol powder Inhale 1 puff. 05/17/2024 oxyCODONE-acetam inophen (Percocet) 7.5-325 MG tabletIndication s:Chronic [...] 14 days. 70 tablet 03/31/2025 03/17/20 25 documented as of this encounter Plan of Treatment Upcoming Encounters Date Type Department Care Team ([facility] st Contact Info) Description 04/09/2025 9:00 AM EDT Clinical Support [facility] Hematology/BMT and Cellular Therapy Program [address] [place] [address] [place] [address] 04/09/2025 9:30 AM EDT Office Visit [facility] Hematology/BMT and Cellular Therapy Program [address] [place] [address] [place] [address] Mini Cordova MD [address] [place] [address] 04/21/2025 10:30 AM EDT Appointment [facility] [address] [id number] [place] [address] Anusha Martines, HAMMER MILL OPERATOR, DNP [address] [place] [address] 04/23/2025 11:10 AM EDT Office Visit [facility] Medicine Specialties [address] [place] [address] Dunia Menard, JOVANNY [address] [place] [address] 05/26/2025 9:00 AM EDT Office Visit [facility] [place] [facility] [address] [facility], [address] [place] [address] June Jensen MD [address] [place] [address] 06/02/2025 3:45 PM EDT Office Visit [facility] Medicine Specialties [address] [place] [address] Mickie Crocker DO [address] [place] [address] documented as of this encounter [...] documented as of this encounter Care Teams Hone Operator Relationship Specialty Start Date End Date Kiana Arenas PA [address] [place] [address] PCP - General 12/18/20 Grey Wu MD [address] [facility] [address] [place] [address] Consulting Physician Radiation Oncology 09/16/24 Mini Crodova MD [address] [facility] [address] [place] [address] Consulting Physician Palliative Medicine 11/27/24 Alonzo Ritter MD [address] [facility] [address] [place] [address] Consulting Physician Medical Oncology 11/27/24 documented as of this encounter
--- OUTSIDE RECORDS SUMMARY | 2025-03-17 03:25 | XMS_ITS | Encounter Summary ---
Author Organization [facility] Address [address] [place] [address] Care Team Providers Care Outreach Assistant Name Role Phone Kiana Arenas Primary Care Provider [phone] Grey Wu MD Unavailable [phone] Mini Cordova MD Unavailable [phone] Alonzo Ritter MD Unavailable Encounter Details Date Type Department Care Team (Latest Contact Info) Description 03/17/2025 3:25 AM EDT - 03/17/2025 11:59 PM EDT Hospital Encounter [facility] [address] [id number] [place] [address] Discharge Disposition: Still a Patient Social History [...] 30 (thirty) days. 11/05/2021 ergocalciferol 1.25 MG (42379 UT) capsule Take 1 capsule (50,000 Units) [...] omeprazole (PriLOSEC) [address] capsule 11/05/2021 oxyCODONE-acetam inophen (Percocet) 7.5-325 MG tabletIndication s:Chronic pain syndrome,Cancer related pain,Encounter for palliative care Take 1 tablet by mouth 5 times a day as needed for severe pain for up to 14 days. 70 tablet 03/31/2025 04/14/20 25 oxyCODONE-acetam inophen (Percocet) 7.5-325 MG tabletIndication s:Chronic pain syndrome,Cancer related pain,Encounter for palliative care Take 1 tablet by mouth 5 times a day as needed for severe pain for up to 14 days. 70 tablet 03/17/2025 03/31/20 25 phenazopyridine (Pyridium) 200 MG tablet Take 1 [...] MCG/ACT aerosol powder Inhale 1 puff. 05/17/2024 documented as of this encounter Miscellaneous Notes * Progress Notes - Grey Wu MD - 03/18/2025 3:12 PM EDT Diagnosis: Primary Z51.0 - Encounter for antineoplastic radiation therapy, Diagnosed 03/05/2025 (Active) Primary C34.31 - Malignant neoplasm of lower lobe, right bronchus or lung, Diagnosed 10/02/2024 (Active) Date of Service: 03/18/2025 ERINN NUNEZ received 4 of 5 scheduled Stereotactic Body Radiation Treatment for their Z51.0 - Encounter for antineoplastic radiation therapy, Diagnosed 03/05/2025 (Active) on 03/18/2025 under the direction of Grey Wu MD. Choose an item. The stereotactic dose of 1000 cGy was received without difficulty. The patient tolerated treatment today. Therapist Initials: TH Therapist Initials: SYED Other Clinic Staff Initials: Click or tap [...] CC Hematology/BMT and Cellular Therapy Program [address] [facility], [address] [place] [phone] 04/09/2025 9:30 AM EDT Office Visit [facility] Hematology/BMT and Cellular Therapy Program [address] [facility], [address] [place] [phone] Mini Cordova MD [address] [facility] [address] [place] [address] 04/21/2025 10:30 AM EDT Appointment [facility] [id number] [place] [address] Anusha Martines APRN, DNP [address] [facility] [address] [place] [address] 04/23/2025 11:10 AM EDT [facility] Visit [facility] [address] [place] [address] Dunia Menard APRN [address] [place] [address] 05/26/2025 9:00 AM EDT Office Visit [facility]eral Met[facility] [address] [facility], [address] [place] [address] June Jensen MD [address] [facility] [address] [place] [address] 06/02/2025 3:45 PM EDT [facility] [address] [place] [address] Obi Mickie, [address] [place] [address] documented as of this encounter [...] documented as of this encounter Care Teams Outreach Assistant Relationship Specialty Start Date End Date Kiana Arenas PA [address] [place] [address] PCP - General 12/18/20 Grey Wu MD [address] [place] [address] Consulting Physician Radiation Oncology 09/16/24 Mini Cordova MD [address] [place] [address] Consulting Physician Palliative Medicine 11/27/24 Alonzo Ritter MD [address] [facility] [address] [place] [address] Consulting Physician Medical Oncology 11/27/24 documented as of this encounter
--- OUTSIDE RECORDS SUMMARY | 2025-03-18 11:45 | XMS_ITS | Encounter Summary ---
Author Organization [facility] Address [address] [place] [address] Care Team Providers Care Nurse College Name Role Phone Kiana Arenas Primary Care Provider [phone] Grey Wu MD Unavailable [phone] Mini Cordova MD Unavailable [phone] Alonzo Ritter MD Unavailable Encounter Details Date Type Department Care Team (Latest Contact Info) Description 03/18/2025 11:45 AM EDT - 03/18/2025 11:59 PM EDT Hospital Encounter [facility] [id number] [place] [address] Discharge Disposition: Still a Patient Social History [...] 30 (thirty) days. 11/05/2021 ergocalciferol 1.25 MG (04203 UT) capsule Take 1 capsule (50,000 Units) [...] puff. 05/17/2024 documented as of this encounter Plan of Treatment Upcoming Encounters Date Type Department Care Team ([facility] st Contact Info) Description 04/09/2025 9:00 AM EDT Clinical Support [facility] Hematology/BMT and Cellular Therapy Program [address] [place] [address] [place] [address] 04/09/2025 9:30 AM EDT Office Visit [facility] Hematology/BMT and Cellular Therapy Program [address] [place] [address] [place] [address] Mini Cordova MD [address] [place] [address] 04/21/2025 10:30 AM EDT Appointment [facility] [address] [place] [address] Anusha Martines, STAMPING BENCH DIE MAKER, DNP [address] [place] [address] 04/23/2025 11:10 AM EDT Office Visit [facility] Medicine Specialties [address] 2nd [place] [address] Dunia Menard, JOVANNY [address] [place] [address] 05/26/2025 9:00 AM EDT Office Visit [employer] [place] [facility] [address] [facility], [address] [place] [address] June Jensen MD [address] 3[address] [place] [address] 06/02/2025 3:45 PM EDT Office Visit [facility] Medicine Specialties [address], 2[address] [place] [address] Mickie Crocker DO [address] [place] [address] documented as of this encounter [...] documented as of this encounter Care Teams Nurse College Relationship Specialty Start Date End Date Kiana Arenas PA [address] [place] [address] PCP - General 12/18/20 Grey Wu MD [address] [facility] [address] [place] [address] Consulting Physician Radiation Oncology 09/16/24 Mini Cordova MD [address] [facility] [address] [place] [address] Consulting Physician Palliative Medicine 11/27/24 Alonzo Ritter MD [address] [facility] [address] [place] [address] Consulting Physician Medical Oncology 11/27/24 documented as of this encounter
--- OUTSIDE RECORDS SUMMARY | 2025-03-28 08:31 | XMS_ITS | Encounter Summary ---
Author Organization Healthcare Address [address] [place] [address] Care Team Providers Care Career Manager Name Role Phone Kiana Arenas Primary Care Provider [phone] Grey Wu MD Unavailable [phone] Mini Cordova MD Unavailable [phone] Alonzo Ritter MD Unavailable Encounter Details Date Type Department Care Team (Latest Contact Info) Description 03/17/2025 Travel Social History Tobacco Use Types Packs/Day Years Used Date Smoking Tobacco: Every Day Cigarettes 0.3 41.2 Started: 01/17/1984 Passive Smoke Exposure: Current Smokeless Tobacco: Never Comments:Smoking 2-3 cigaret sahryn daily Alcohol Use Standard Drinks/Week Comments Never [...] CC Hematology/BMT and Cellular Therapy Program [address] [facility], [address] [place] [address] 04/09/2025 9:30 AM EDT Office Visit [facility] Hematology/BMT and Cellular Therapy Program [address] [facility], [address] [facility] [place] [address] Mini Cordova MD [address] [place] [address] 04/21/2025 10:30 AM EDT Appointment [facility] [address] [id number] [place] [address] Anusha Martines, BUILDING CONSTRUCTION SUPERVISOR, DNP [address] [facility] [address] [place] [address] 04/23/2025 11:10 AM EDT Office Visit [facility] Medicine Specialties [address] 2[address] [place] [address] Dunia Menard, JOVANNY [address] [place] [address] 05/26/2025 9:00 AM EDT Office Visit [facility] [employer] [place] [facility] [address] [facility], [address] [place] [address] June Jensen MD [address] [facility] [address] [place] [address] 06/02/2025 3:45 PM EDT Office Visit [facility] Medicine Specialties [address] 2[address] [place] [address] Mickie Crocker DO [address] [place] [address] documented as of this encounter [...] documented as of this encounter Care Teams Career Manager Relationship Specialty Start Date End Date Kiana Arenas PA [address] [facility] [place] [address] PCP - General 12/18/20 Grey Wu MD [address] [facility] [address] [place] [address] Consulting Physician Radiation Oncology 09/16/24 Mini Cordova MD [address] [place] [address] Consulting Physician Palliative Medicine 11/27/24 Alonzo Ritter MD [address] [facility] [address] [place] [address] Consulting Physician Medical Oncology 11/27/24 documented as of this encounter
--- OUTSIDE RECORDS SUMMARY | 2025-03-28 08:31 | XMS_ITS | Encounter Summary ---
Author Organization Healthcare Address [address] [place] [address] Care Team Providers Care Tree Deadener Name Role Phone Kiana Arenas Primary Care Provider [phone] Grey Wu MD Unavailable [phone] Mini Cordova MD Unavailable [phone] Alonzo Ritter MD Unavailable Encounter Details Date Type Department Care Team (Latest Contact Info) Description 03/13/2025 Travel Social History Tobacco Use Types Packs/Day [...] CC Hematology/BMT and Cellular Therapy Program [address] [facility], [address] [place] [address] 04/09/2025 9:30 AM EDT Office Visit [facility] Hematology/BMT and Cellular Therapy Program [address] [facility], [address] Ne[address] [facility] [place] [address] Mini Cordova MD [address] [place] [address] 04/21/2025 10:30 AM EDT Appointment [facility] Rad[facility] [id number] [place] [address] Anusha Martines, TABLE AND DESK FINISHER, DNP [address] [facility] [address] [place] [address] 04/23/2025 11:10 AM EDT Office Visit [facility] Medicine Specialties [address] 2[address] [place] [address] Dunia Menard, JOVANNY [address] [place] [address] 05/26/2025 9:00 AM EDT Office Visit [facility] [employer] [place] [facility] [address] [facility], [address] [place] [address] June Jensen MD [address] [facility] [address] [place] [address] 06/02/2025 3:45 PM EDT Office Visit [facility] Medicine Specialties [address], [address] [place] [address] Mickie Crocker DO [address] [place] [address] documented as of this encounter [...] documented as of this encounter Care Teams Tree Deadener Relationship Specialty Start Date End Date Kiana Arenas PA [address] [facility] [place] [address] PCP - General 12/18/20 Grey Wu MD [address] [facility] [address] [place] [address] Consulting Physician Radiation Oncology 09/16/24 Mini Cordova MD [address] [place] [address] Consulting Physician Palliative Medicine 11/27/24 Alonzo Ritter MD [address] [facility] [address] [place] [address] Consulting Physician Medical Oncology 11/27/24 documented as of this encounter
--- OUTSIDE RECORDS SUMMARY | 2025-03-28 08:31 | XMS_ITS | Encounter Summary ---
Author Organization [facility] Address [address] [place] [id number] Care Team Providers Care Surgical First Assistant Name Role Phone Kiana Arenas Primary Care Provider [phone] Grey Wu MD Unavailable [phone] Mini Cordova MD Unavailable [phone] Alonzo Ritetr MD Unavailable Encounter Details Date Type Department Care Team (Late st Contact Info) Description 03/17/2025 Telephone [facility] Hematology/BMT and Cellular Therapy Program [address] [place] [address] Megan Chance MD [address] [place] [address] Social History Tobacco Use Types Packs/Day Years [...] on file documented as of this encounter Miscellaneous Notes * Clinician Note - Latonia Villanueva, RN - 03/17/2025 12:55 PM EDT RN attempted to reach patient. No answer and unable to leave VM. Will send [facility] message to follow up. documented in this encounter Plan of Treatment Upcoming Encounters Date Type Department Care Team ([facility] st Contact Info) Description 04/09/2025 9:00 AM EDT Clinical Support [facility] Hematology/BMT and Cellular Therapy Program [address] [phone] 04/09/2025 9:30 AM EDT Office Visit [facility] CC Hematology/BMT and Cellular Therapy Program [address] [phone] Mini Cordova MD [address] [facility] [address] [place] [address] 04/21/2025 10:30 AM EDT Appointment [facility] Radiation 800 [facility]. [address] [place] [address] Anusha Martines APRN, DNP 800 [facility] [address] [place] [address] 04/23/2025 11:10 AM EDT [facility] Visit [facility] [address] 2nd [place] [address] Dunia Menard APRN [address] [facility] [address] [place] [address] 05/26/2025 9:00 AM EDT Office Visit [employer] [place] [facility] [address] [facility], [address] [place] [address] June Jensen MD [address] [place] [address] 06/02/2025 3:45 PM EDT [facility] [address], [address] [place] [address] Mickie Crocker DO [address] [place] [address] documented as of this encounter Visit Diagnoses Not on filedocumented in this encounter Additional Health Concerns Assessment Noted Time PHQ-9 Depression Total Score: 6 03/05/20 10:00 AM EDT A fall risk assessment has been complete d for the patient 01/20/2025 1:32 PM EDT A Body Mass Index follow-up plan has been documented for the patient 01/21/2025 3:27 PM EDT documented as of this encounter Care Teams Surgical First Assistant Relationship Specialty Start Date End Date Kiana Arenas PA [address] [facility] [address] PCP - General 12/18/20 Grey Wu MD 800 [facility] [address] [place] [address] Consulting Physician Radiation Oncology 09/16/24 Mini Cordova MD [address] [place] [address] Consulting Physician Palliative Medicine 11/27/24 Alonzo Ritter MD [address] [facility] [address] [place] [address] Consulting Physician Medical Oncology 11/27/24 documented as of this encounter
--- OUTSIDE RECORDS SUMMARY | 2025-03-28 08:31 | XMS_ITS | Encounter Summary ---
Author Organization [facility] Address [address] [place] [id number] Care Team Providers Care Director External Communications Name Role Phone Kiana Arenas Primary Care Provider [phone] Grey Wu MD Unavailable [phone] Mini Cordova MD Unavailable [phone] Alonzo Ritter MD Unavailable Encounter Details Date Type Department Care Team (Late st Contact Info) Description 03/17/2025 Telephone [facility] Hematology/BMT and Cellular Therapy Program [address] [place] [address] Megan Chance MD 800 [place] [address] Social History Tobacco Use Types Packs/Day Years Used Date Smoking Tobacco: Every Day Cigarettes 0.3 41.2 Started: 01/17/1984 Passive Smoke Exposure: Current Smokeless Tobacco: Never Comments:Smoking 2-3 cigaret shrayn daily Alcohol Use Standard Drinks/Week Comments Never [...] as of this encounter Miscellaneous Notes * Telephone Encounter - Murray Egan - 03/17/2025 3:32 PM EDT Clinic Pharmacy is calling to speak to clinical team about patient's pain medication Callback number: [phone] documented in this encounter Plan of Treatment Upcoming Encounters Date Type Department Care Team ([facility] st Contact Info) Description 04/09/2025 9:00 AM EDT Clinical Support [facility] Hematology/BMT and Cellular Therapy Program [address] [phone] 04/09/2025 9:30 AM EDT Office Visit [facility] CC Hematology/BMT and Cellular Therapy Program [address] [phone] Mini Cordova MD [address] [facility] [address] [place] [address] 04/21/2025 10:30 AM EDT Appointment [facility] Radiation [address] [id number] [place] [address] Anusha Martines, TOOL AND MACHINE MAINTAINER, DNP 800 [facility] [address] [place] [address] 04/23/2025 11:10 AM EDT Office Visit [facility] Medicine Specialties [address] 2nd [place] [address] Dunia Menard, JOVANNY [address] [place] [address] 05/26/2025 9:00 AM EDT Office Visit [facility] [facility] Bone [facility] Metabolism [address], [address] [place] [address] uJne Jensen MD [address] [place] [address] 06/02/2025 3:45 PM EDT Office Visit [facility] [address], [address] [place] [address] Mickie Crocker, [address] [place] [address] documented as of this encounter [...] documented as of this encounter Care Teams Director External Communications Relationship Specialty Start Date End Date Kiana Arenas PA [address] [place] [address] PCP - General 12/18/20 Grey Wu MD [address] [place] [address] Consulting Physician Radiation Oncology 09/16/24 Mini Cordova MD [address] [place] [address] Consulting Physician Palliative Medicine 11/27/24 Alonzo Ritter MD [address] [facility] [address] [address] Consulting Physician Medical Oncology 11/27/24 documented as of this encounter
--- OUTSIDE RECORDS SUMMARY | 2025-03-28 08:32 | XMS_ITS | Encounter Summary ---
Author Organization [facility] Address [address] [place] [address] Care Team Providers Care Deputy Director Of Finance Name Role Phone Kiana Arenas Primary Care Provider [phone] Grey Wu MD Unavailable [phone] Mini Cordova MD Unavailable [phone] Alonzo Ritter MD Unavailable Encounter Details Date Type Department Care Team (Late st Contact Info) Description 03/05/2025 Orders Only [facility] Radiation [id number] [place] [address] Radiation Oncology, Physician, [address] [place] [address] Social History Tobacco Use Types Packs/Day Years [...] Upcoming Encounters Date Type Department Care Team ([facility] st Contact Info) Description 04/09/2025 9:00 AM EDT Clinical Support [facility] Hematology/BMT and Cellular Therapy Program [address] [facility], [address] [address] 04/09/2025 9:30 AM EDT Office Visit [facility] Hematology/BMT and Cellular Therapy Program [address] [facility], [address] [place] [address] Mini Cordova MD [address] [place] [address] 04/21/2025 10:30 AM EDT Appointment [facility] Radiation [id number] [place] [address] Anusha Martines, JOVANNY, DNP [address] [facility] [address] [place] [address] 04/23/2025 11:10 AM EDT Office Visit [facility] Medicine Specialties [address], 2[address] [place] [address] Dunia Menard, CARBURETOR EXPERT [address] [place] [address] 05/26/2025 9:00 AM EDT Office Visit Professional [employer] [place] [facility] [address] [facility], [address] [place] [address] June Jensen MD [address] [facility] [address] [place] [address] 06/02/2025 3:45 PM EDT Office Visit [facility] Medicine Specialties [address], [address] [place] [address] ObiMickie, DO [address] [place] [address] documented as of this encounter Procedures Procedure Name Priority Date/Time Associated Diagnosis Comments RAD ONC ARIA SESSION SUMMARY Routine 03/05/2025 9:42 AM EDT documented in this encounter Results * Rad Onc Aria Session Summary (03/05/2025 9:42 AM EDT) Course ID C1 - Actual Tx ARIA RADIATION ONCOLOGY Course Intent Unknown ARIA RADIATION ONCOLOGY Course Start Date 02/19/2025 12:11 PM ARIA RADIATION ONCOLOGY Course First Treatment Date 03/05/2025 9:31 AM ARIA RADIATION ONCOLOGY Course Last Treatment Date 03/05/2025 9:35 AM ARIA RADIATION ONCOLOGY Course Elapsed Days 0 ARIA RADIATION ONCOLOGY Reference Point ID RUL/RLL SBRT ARIA RADIATION ONCOLOGY Reference Point Dosage Given to Date 10 Gy ARIA RADIATION ONCOLOGY Reference Point Session Dosage Given 10 Gy ARIA RADIATION ONCOLOGY Plan ID RUL/RLL SBRT ARIA RADIATION ONCOLOGY Plan Name RLL SBRT ARIA RADIATION ONCOLOGY Plan Fractions Treated to Date 1 ARIA RADIATION ONCOLOGY Plan Total Fractions Prescribed 5 ARIA RADIATION ONCOLOGY Plan Prescribed Dose Per Fraction 10 Gy ARIA RADIATION ONCOLOGY Plan Total Prescribed Dose 5,000 CGy ARIA RADIATION ONCOLOGY Plan Primary Reference Point RUL/RLL SBRT ARIA RADIATION ONCOLOGY 03/05/2025 9:42 AM EDT Physician Radiation Oncology RADIATION ONCOLO GY ORDERABLES Final Result ARIA RADIATION ONCOLOGY documented in this encounter Visit Diagnoses Not on filedocumented [...] documented as of this encounter Care Teams Deputy Director Of Finance Relationship Specialty Start Date End Date Kiana Arenas PA [address] [place] [address] PCP - General 12/18/20 Grey Wu MD [address] [facility] [address] [place] [address] Consulting Physician Radiation Oncology 09/16/24 Mini Cordova MD [address] [place] [address] Consulting Physician Palliative Medicine 11/27/24 Alonzo Ritter MD [address] [facility] [address] [place] [address] Consulting Physician Medical Oncology 11/27/24 documented as of this encounter
--- OUTSIDE RECORDS SUMMARY | 2025-03-28 08:32 | XMS_ITS | Encounter Summary ---
Author Organization [facility] Address [address] [place] [address] Care Team Providers Care Refuse Laborer Name Role Phone Kiana Arenas Primary Care Provider [phone] Grey Wu MD Unavailable [phone] Mini Cordova MD Unavailable [phone] Alonzo Ritter MD Unavailable Encounter Details Date Type Department Care Team (Latest Contact Info) Description 03/20/2025 Travel Social History Tobacco Use Types Packs/Day [...] CC Hematology/BMT and Cellular Therapy Program [address] [facility], [address] [place] [address] 04/09/2025 9:30 AM EDT Office Visit [facility] Hematology/BMT and Cellular Therapy Program [address] [facility] [facility] [place] [address] Mini Cordova MD [address] [place] [address] 04/21/2025 10:30 AM EDT Appointment [facility] Radiation [id number] [place] [address] Anusha Martines, CLOTH ROLL WINDER, DNP [address] [facility] [address] [place] [address] 04/23/2025 11:10 AM EDT Office Visit [facility] Medicine Specialties [address], 2[address] [place] [address] Dunia Menard, JOVANNY [address] [place] [address] 05/26/2025 9:00 AM EDT Office Visit [facility] [employer] [place] [facility] [address] [facility], [address] [place] [address] June Jensen MD [address] [facility] [address] [place] [address] 06/02/2025 3:45 PM EDT Office Visit [facility] Medicine Specialties [address], 2[address] [place] [address] Mickie Crocker DO [address] [place] [address] documented as of this encounter [...] documented as of this encounter Care Teams Refuse Laborer Relationship Specialty Start Date End Date Kiana Arenas PA [address] [facility] [place] [address] PCP - General 12/18/20 Grey Wu MD [address] [facility] [address] [place] [address] Consulting Physician Radiation Oncology 09/16/24 Mini Cordova MD [address] [place] [address] Consulting Physician Palliative Medicine 11/27/24 Alonzo Ritter MD [address] [facility] [address] [place] [address] Consulting Physician Medical Oncology 11/27/24 documented as of this encounter
--- OUTSIDE RECORDS SUMMARY | 2025-03-28 08:32 | XMS_ITS | Encounter Summary ---
Author Organization [facility] Address [address] [place] [address] Care Team Providers Care Inspector Machine Parts Name Role Phone Kiana Arenas Primary Care Provider [phone] Grey Wu MD Unavailable [phone] Mini Cordova MD Unavailable [phone] Alonzo Ritter MD Unavailable Encounter Details Date Type Department Care Team (Late st Contact Info) Description 03/18/2025 Orders Only [facility] Radiation [id number] [place] [address] Radiation Oncology, Physician, [address] [place] [address] Social History Tobacco Use Types Packs/Day [...] Encounters Date Type Department Care Team ([facility] st Contact Info) Description 04/09/2025 9:00 AM EDT Clinical Support P[facility] CC Hematology/BMT and Cellular Therapy Program [address] [facility], [address] [address] 04/09/2025 9:30 AM EDT Office Visit [facility] CC Hematology/BMT and Cellular Therapy Program [address] [facility], [address] [address] Mini Cordova MD [address] [place] [address] 04/21/2025 10:30 AM EDT Appointment [facility] Radiation [id number] [place] [address] Anusha Martines, JOVANNY, DNP [address] [facility] [address] [place] [address] 04/23/2025 11:10 AM EDT Office Visit [facility] Medicine Specialties [address], [address] [place] [address] Dunia Menard, POLY OPERATOR [address] [place] [address] 05/26/2025 9:00 AM EDT Office Visit [facility] [employer] [place] [facility] [address] [facility], [address] [place] [address] June Jensen MD [address] [facility] [address] [place] [address] 06/02/2025 3:45 PM EDT Office Visit [facility] Medicine Specialties [address], [address] [place] [address] ObiMickie, DO [address] [place] [address] documented as of this encounter Procedures Procedure Name Priority Date/Time Associated Diagnosis Comments RAD ONC ARIA SESSION SUMMARY Routine 03/18/2025 12:18 PM EDT documented in this encounter Results * Rad Onc Aria Session Summary (03/18/2025 12:18 PM EDT) Course ID C1 - Actual Tx ARIA RADIATION ONCOLOGY Course Intent Unknown ARIA RADIATION ONCOLOGY Course Start Date 02/19/2025 12:11 PM ARIA RADIATION ONCOLOGY Course First Treatment Date 03/05/2025 9:31 AM ARIA RADIATION ONCOLOGY Course Last Treatment Date 03/18/2025 12:10 PM ARIA RADIATION ONCOLOGY Course Elapsed Days 13 ARIA RADIATION ONCOLOGY Reference Point ID RUL/RLL SBRT ARIA RADIATION ONCOLOGY Reference Point Dosage Given to Date 40 Gy ARIA RADIATION ONCOLOGY Reference Point Session Dosage Given 10 Gy ARIA RADIATION ONCOLOGY Plan ID RUL/RLL SBRT ARIA RADIATION ONCOLOGY Plan Name RLL SBRT ARIA RADIATION ONCOLOGY Plan Fractions Treated to Date 4 ARIA RADIATION ONCOLOGY Plan Total Fractions Prescribed 5 ARIA RADIATION ONCOLOGY Plan Prescribed Dose Per Fraction 10 Gy ARIA RADIATION ONCOLOGY Plan Total Prescribed Dose 5,000 CGy ARIA RADIATION ONCOLOGY Plan Primary Reference Point RUL/RLL SBRT ARIA RADIATION ONCOLOGY 03/18/2025 12:1 8 PM EDT Physician Radiation Oncology RADIATION ONCOLO GY [...] as of this encounter Care Teams Inspector Machine Parts Relationship Specialty Start Date End Date Kiana Arenas PA [address] [place] [address] PCP - General 12/18/20 Grey Wu MD [address] [facility] [address] [place] [address] Consulting Physician Radiation Oncology 09/16/24 Mini Cordova MD [address] [place] [address] Consulting Physician Palliative Medicine 11/27/24 Alonzo Ritter MD [address] [facility] [address] [facility] [address] [place] [address] Consulting Physician Medical Oncology 11/27/24 documented as of this encounter
--- OUTSIDE RECORDS SUMMARY | 2025-03-28 08:32 | XMS_ITS | Encounter Summary ---
Author Organization [facility] Address [address] [place] [address] Care Team Providers Care Hair Dryer Name Role Phone Kiana Arenas Primary Care Provider [phone] Grey Wu MD Unavailable [phone] Mini Cordova MD Unavailable [phone] Alonzo Ritter MD Unavailable Encounter Details Date Type Department Care Team (Late st Contact Info) Description 03/24/2025 Orders Only [facility] Radiation [id number] [place] [address] Radiation Oncology, Physician, [address] [place] [address] Social History Tobacco Use Types Packs/Day [...] Encounters Date Type Department Care Team ([facility] st Contact Info) Description 04/09/2025 9:00 AM EDT Clinical Support PAV CC Hematology/BMT and Cellular Therapy Program [address] [facility], [address] [place] [address] 04/09/2025 9:30 AM EDT Office Visit [facility] CC Hematology/BMT and Cellular Therapy Program [address] [facility], [address] [place] [address] Mini Cordova MD [address] [place] [address] 04/21/2025 10:30 AM EDT Appointment [facility] CC Radiation [id number] [place] [address] Anusha Martines, JOVANNY, DNP [address] [facility] [address] [place] [address] 04/23/2025 11:10 AM EDT Office Visit [facility] Medicine Specialties [address], 2nd [place] [address] Dunia Menard, DOWEL PIN MAN [address] [place] [address] 05/26/2025 9:00 AM EDT Office Visit [facility] [employer] [place] [facility] [address] [facility], [address] [place] [address] June Jensen MD [address] [facility] 3[address] [place] [address] 06/02/2025 3:45 PM EDT Office Visit [facility] Medicine Specialties [address], [address] [place] [address] ObiMickie, DO [address] [place] [address] documented as of this encounter Procedures Procedure Name Priority Date/Time Associated Diagnosis Comments RAD ONC ARIA COURSE SUMMARY Routine 03/24/2025 5:23 PM EDT documented in this encounter Results * Rad Onc Aria Course Summary (03/24/2025 5:23 PM EDT) Course ID C1 - Actual Tx ARIA RADIATION ONCOLOGY Course Intent Unknown ARIA RADIATION ONCOLOGY Course Start Date 02/19/2025 12:11 PM ARIA RADIATION ONCOLOGY Course End Date 03/24/2025 5:23 PM ARIA RADIATION ONCOLOGY Course First Treatment Date 03/05/2025 9:31 AM ARIA RADIATION ONCOLOGY Course Last Treatment Date 03/18/2025 12:10 PM ARIA RADIATION ONCOLOGY Course Elapsed Days 13 ARIA RADIATION ONCOLOGY Reference Point ID RUL/RLL SBRT ARIA RADIATION ONCOLOGY Reference Point Dosage Given to Date 40 Gy ARIA RADIATION ONCOLOGY Plan ID RUL/RLL SBRT ARIA RADIATION ONCOLOGY Plan Name RUL/RLL SBRT ARIA RADIATION ONCOLOGY Plan Fractions Treated to Date 4 ARIA RADIATION ONCOLOGY Plan Total Fractions Prescribed 5 ARIA RADIATION ONCOLOGY Plan Prescribed Dose Per Fraction 10 Gy ARIA RADIATION ONCOLOGY Plan Total Prescribed Dose 5,000 CGy ARIA RADIATION ONCOLOGY Plan Primary Reference Point RUL/RLL SBRT ARIA RADIATION ONCOLOGY 03/24/2025 5:23 PM EDT Physician Radiation Oncology RADIATION ONCOLO [...] documented as of this encounter Care Teams Hair Dryer Relationship Specialty Start Date End Date Kiana Arenas PA [address] [place] [address] PCP - General 12/18/20 Grey Wu MD [address] [facility] [address] [place] [address] Consulting Physician Radiation Oncology 09/16/24 Mini Cordova MD [address] [place] [address] Consulting Physician Palliative Medicine 11/27/24 Alonzo Ritter MD [address] [facility] [address] [facility] [address] [place] [address] Consulting Physician Medical Oncology 11/27/24 documented as of this encounter
--- OUTSIDE RECORDS SUMMARY | 2025-03-28 08:32 | XMS_ITS | Encounter Summary ---
Author Organization [facility] Address [address] [place] [address] Care Team Providers Care Envelope Stuffer Name Role Phone Kiana Arenas Primary Care Provider [phone] Grey Wu MD Unavailable [phone] Mini Cordova MD Unavailable [phone] Alonzo Ritter MD Unavailable Encounter Details Date Type Department Care Team (Late st Contact Info) Description 03/21/2025 Telephone [facility] CC Radiation [id number] [place] [address] Grey Wu MD [address] [place] [address] Social History Tobacco Use Types Packs/Day Years [...] Upcoming Encounters Date Type Department Care Team ([facility] st Contact Info) Description 04/09/2025 9:00 AM EDT Clinical Support PAV CC Hematology/BMT and Cellular Therapy Program [address] [facility] [place] [address] 04/09/2025 9:30 AM EDT Office Visit [facility] CC Hematology/BMT and Cellular Therapy Program [address] [facility], [facility] [place] [address] Mini Cordova MD [address] [facility] [address] [place] [address] 04/21/2025 10:30 AM EDT Appointment [facility] CC Radiation [id number] [place] [address] Anusha Martines, POULTRY BUYER, DNP [address] [facility] [address] [place] [address] 04/23/2025 11:10 AM EDT Office Visit [facility] Medicine Specialties [address] [place] [address] Dunia Menard, POULTRY BUYER [address] [place] [address] 05/26/2025 9:00 AM EDT Office Visit Professional [employer] [place] [facility] [address] [facility], [address] [place] [address] June Jensen MD [address] [facility] [address] [place] [address] 06/02/2025 3:45 PM EDT Office Visit [facility] Medicine Specialties [address], [address] [place] [address] Mickie Crocker DO [address] [place] [address] documented as of this encounter [...] documented as of this encounter Care Teams Envelope Stuffer Relationship Specialty Start Date End Date Kiana Arenas PA [address] [place] [address] PCP - General 12/18/20 Grey Wu MD [address] [place] [address] Consulting Physician Radiation Oncology 09/16/24 Mini Cordova MD [address] [place] [address] Consulting Physician Palliative Medicine 11/27/24 Alonzo Ritter MD [address] [place] [address] Consulting Physician Medical Oncology 11/27/24 documented as of this encounter
--- OUTSIDE RECORDS SUMMARY | 2025-03-28 08:32 | XMS_ITS | Encounter Summary ---
Author Organization [facility] Address [address] [place] [address] Care Team Providers Care Animal Treatment Investigator Name Role Phone Kiana Arenas Primary Care Provider [phone] Grey Wu MD Unavailable [phone] Mini Cordova MD Unavailable [phone] Alonzo Ritter MD Unavailable Encounter Details Date Type Department Care Team (Latest Contact Info) Description 03/06/2025 Travel Social History Tobacco Use Types Packs/Day [...] CC Hematology/BMT and Cellular Therapy Program [address] [facility], [address] [place] [address] 04/09/2025 9:30 AM EDT Office Visit [facility] CC Hematology/BMT and Cellular Therapy Program [address] [facility], [address] [facility] [place] [address] Mini Cordova MD [address] [place] [address] 04/21/2025 10:30 AM EDT Appointment [facility] CC Radiation [id number] [place] [address] Anusha Martines, MANAGER E LEARNING, DNP [address] [facility] [address] [place] [address] 04/23/2025 11:10 AM EDT Office Visit [facility] Medicine Specialties [address], [address] [place] [address] Dunia Menard, JOVANNY [address] [place] [address] 05/26/2025 9:00 AM EDT Office Visit [facility] [place] [facility] [address] [facility], [address] [place] [address] June Jensen MD [address] [facility] [address] [place] [address] 06/02/2025 3:45 PM EDT Office Visit [facility] Medicine Specialties [address], [address] [place] [address] Mickie Crocker DO [address] [place] [address] documented as of this encounter [...] documented as of this encounter Care Teams Animal Treatment Investigator Relationship Specialty Start Date End Date Kiana Arenas PA [address] [place] [address] PCP - General 12/18/20 Grey Wu MD [address] [facility] [address] [place] [address] Consulting Physician Radiation Oncology 09/16/24 Mini Cordova MD [address] [place] [address] Consulting Physician Palliative Medicine 11/27/24 Alonzo Ritter MD [address] [facility] [address] [place] [address] Consulting Physician Medical Oncology 11/27/24 documented as of this encounter
--- OUTSIDE RECORDS SUMMARY | 2025-03-28 08:32 | XMS_ITS | Encounter Summary ---
Author Organization [facility] Address [address] [place] [address] Care Team Providers Care Concrete Form Setter Name Role Phone Kiana Arenas Primary Care Provider [phone] Grey Wu MD Unavailable [phone] Mini Cordova MD Unavailable [phone] Alonzo Ritter MD Unavailable Encounter Details Date Type Department Care Team (Latest Contact Info) Description 03/18/2025 Travel Social History Tobacco Use Types Packs/Day [...] CC Hematology/BMT and Cellular Therapy Program [address] [facility], [address] [place] [address] 04/09/2025 9:30 AM EDT Office Visit [facility] CC Hematology/BMT and Cellular Therapy Program [address] [facility], [address] [facility] [place] [address] Mini Cordova MD [address] [place] [address] 04/21/2025 10:30 AM EDT Appointment [facility] CC Radiation [id number] [place] [address] Anusha Martines, SUPERVISOR WET POUR, DNP [address] [facility] [address] [place] [address] 04/23/2025 11:10 AM EDT Office Visit [facility] Medicine Specialties [address] [place] [address] Dunia Menard, JOVANNY [address] [place] [address] 05/26/2025 9:00 AM EDT Office Visit [facility] [employer] [place] [facility] [address] [facility], [address] [place] [address] June Jensen MD [address] [facility] [address] [place] [address] 06/02/2025 3:45 PM EDT Office Visit [facility] Medicine Specialties [address], [address] [place] [address] Mickie Crocker DO [address] [place] [address] documented as of this encounter [...] documented as of this encounter Care Teams Concrete Form Setter Relationship Specialty Start Date End Date Kiana Arenas PA [address] [facility] [place] [address] PCP - General 12/18/20 Gery Wu MD [address] [facility] [address] [place] [address] Consulting Physician Radiation Oncology 09/16/24 Mini Cordova MD [address] [place] [address] Consulting Physician Palliative Medicine 11/27/24 Alonzo Ritter MD [address] [facility] [address] [place] [address] Consulting Physician Medical Oncology 11/27/24 documented as of this encounter
--- OUTSIDE RECORDS SUMMARY | 2025-03-28 08:32 | XMS_ITS | Encounter Summary ---
Author Organization [facility] Address [address] [place] [address] Care Team Providers Care Construction Project Engineer Name Role Phone Kiana Arenas Primary Care Provider [phone] Grey Wu MD Unavailable [phone] Mini Cordova MD Unavailable [phone] Alonzo Ritter MD Unavailable Encounter Details Date Type Department Care Team (Late st Contact Info) Description 03/07/2025 Orders Only [facility] Radiation [address] [place] [address] Radiation Oncology, Physician, [address] [place] [address] Social History Tobacco Use Types Packs/Day [...] CC Hematology/BMT and Cellular Therapy Program 750 [facility], [address] [place] [address] 04/09/2025 9:30 AM EDT Office Visit [facility] Hematology/BMT and Cellular Therapy Program 750 [facility], [address]st [place] [address] Mini Cordova MD [address] [place] [address] 04/21/2025 10:30 AM EDT Appointment [facility] Radiation [address] [id number] [place] [address] Anusha Martines, JOVANNY, DNP 800 [facility] [address] [place] [address] 04/23/2025 11:10 AM EDT Office Visit [facility] Medicine Specialties [address], 2nd [place] [address] Dunia Menard, SHEEPSKIN PICKLER [address] [place] [address] 05/26/2025 9:00 AM EDT Office Visit Professional [employer] [facility] [address] [facility], [address] [place] [address] June Jensen MD [address] [facility] 3[address] [place] [address] 06/02/2025 3:45 PM EDT Office Visit [facility] Medicine Specialties [address], 2nd [place] [address] ObiMickie, DO [address] [place] [address] documented as of this encounter Procedures Procedure Name Priority Date/Time Associated Diagnosis Comments RAD ONC ARIA SESSION SUMMARY Routine 03/07/2025 9:51 AM EDT documented in this encounter Results * Rad Onc Aria Session Summary (03/07/2025 9:51 AM EDT) Course ID C1 - Actual Tx ARIA RADIATION ONCOLOGY Course Intent Unknown ARIA RADIATION ONCOLOGY Course Start Date 02/19/2025 12:11 PM ARIA RADIATION ONCOLOGY Course First Treatment Date 03/05/2025 9:31 AM ARIA RADIATION ONCOLOGY Course Last Treatment Date 03/07/2025 9:42 AM ARIA RADIATION ONCOLOGY Course Elapsed Days 2 ARIA RADIATION ONCOLOGY Reference Point ID RUL/RLL SBRT ARIA RADIATION ONCOLOGY Reference Point Dosage Given to Date 20 Gy ARIA RADIATION ONCOLOGY Reference Point Session Dosage Given 10 Gy ARIA RADIATION ONCOLOGY Plan ID RUL/RLL SBRT ARIA RADIATION ONCOLOGY Plan Name RLL SBRT ARIA RADIATION ONCOLOGY Plan Fractions Treated to Date 2 ARIA RADIATION ONCOLOGY Plan Total Fractions Prescribed 5 ARIA RADIATION ONCOLOGY Plan Prescribed Dose Per Fraction 10 Gy ARIA RADIATION ONCOLOGY Plan Total Prescribed Dose 5,000 CGy ARIA RADIATION ONCOLOGY Plan Primary Reference Point RUL/RLL SBRT ARIA RADIATION ONCOLOGY 03/07/2025 9:51 AM EDT Physician Radiation Oncology RADIATION ONCOLO [...] documented as of this encounter Care Teams Construction Project Engineer Relationship Specialty Start Date End Date Kiana Arenas PA [address] [place] [address] PCP - General 12/18/20 Grey Wu MD 800 [facility] [address] [place] [address] Consulting Physician Radiation Oncology 09/16/24 Mini Cordova MD [address] [place] [address] Consulting Physician Palliative Medicine 11/27/24 Alonzo Ritter MD 800 [facility] [address] [place] [address] Consulting Physician Medical Oncology 11/27/24 documented as of this encounter
--- OUTSIDE RECORDS SUMMARY | 2025-03-28 08:32 | XMS_ITS | Encounter Summary ---
Author Organization Healthcare Address [address] [place] [address] Care Team Providers Care Home Theater Installer Name Role Phone Kiana Arenas Primary Care Provider [phone] Grey Wu MD Unavailable [phone] Mini Cordova MD Unavailable [phone] Alonzo Ritter MD Unavailable Encounter Details Date Type Department Care Team (Latest Contact Info) Description 03/05/2025 Travel Social History Tobacco Use Types Packs/Day [...] 10:00 AM DIXONT Latonia Villanueva RN Feeling down, depressed, or [...] down Not at all 03/05/2025 10:00 AM Latonia Ewing RN Trouble concentrating on things, such as reading the newspaper or watching television Not at all 03/05/2025 10:00 AM DIXONT Latonia Villanueva RN Moving or speaking so slowly that other people could have noticed? Or the opposite - being so fidgety or restless that you have been moving around a lot more than usual. Not at all 03/05/2025 10:00 AM Latonia Ewing RN Thoughts that you would be better off or hurting yourself in some way Not at all 03/05/2025 10:00 AM DIXONT Latonia Villanueva RN Patient Health Questionnaire-9 Score 6 03/05/2025 10:00 AM EDLatonia Naik RN documented as of this encounter Plan of Treatment Upcoming Encounters Date Type Department Care Team (Late st Contact Info) Description 04/09/2025 9:00 AM EDT Clinical Support P[facility] CC Hematology/BMT and Cellular Therapy Program [address] [place] [address] [place] [address] 04/09/2025 9:30 AM EDT Office Visit [facility] Hematology/BMT and Cellular Therapy Program [address], [address] [place] [address] Mini Cordova MD [address] [place] [address] 04/21/2025 10:30 AM EDT Appointment [facility] Radiation [address] [id number] [place] [address] Anusha Martines, JOVANNY, DNP [address] [place] [address] 04/23/2025 11:10 AM EDT Office Visit [facility] Medicine Specialties [address], 2nd [place] [address] Dunia Menard APRN [address] [place] [address] 05/26/2025 9:00 AM EDT Office Visit [facility] Mineral Metabolism [address] [facility], [address] [place] [address] June Jensen MD [address] [facility] 3rd Fl [address] [place] [address] 06/02/2025 3:45 PM EDT Office Visit [facility] Medicine Specialties [address], 2[address] [place] [address] Mickie Crocker DO [address] [place] [address] documented as of this encounter Visit Diagnoses [...] documented as of this encounter Care Teams Home Theater Installer Relationship Specialty Start Date End Date Kiana Arenas PA [address] [facility] [place] [address] PCP - General 12/18/20 Grey Wu MD [address] [facility] [address] [place] [address] Consulting Physician Radiation Oncology 09/16/24 Mini Cordova MD [address] [place] [address] Consulting Physician Palliative Medicine 11/27/24 Alonzo Ritter MD [address] [facility] [address] [place] [address] Consulting Physician Medical Oncology 11/27/24 documented as of this encounter
--- OUTSIDE RECORDS SUMMARY | 2025-03-28 08:33 | XMS_ITS | Encounter Summary ---
Author Organization [facility] Address [address] [place] [id number] Care Team Providers Care Collision Center Manager Name Role Phone Kiana Arenas Primary Care Provider [phone] Grey Wu MD Unavailable [phone] Mini Cordova MD Unavailable [phone] Alonzo Ritter MD Unavailable Encounter Details Date Type Department Care Team (Late st Contact Info) Description 03/12/2025 Orders Only P[facility] CC Hematology/BMT and Cellular Therapy Program [address] [place] [address] [address] [place] [phone] Yamileth [place], PharmD [address] [place] [address] Social History Tobacco Use Types Packs/Day Years [...] CC Hematology/BMT and Cellular Therapy Program 750 [facility], [address] [address] 04/09/2025 9:30 AM EDT Office Visit [facility] CC Hematology/BMT and Cellular Therapy Program 750 [facility], [address] [place] [address] Mini Cordova MD [address] [place] [address] 04/21/2025 10:30 AM EDT Appointment [facility] Radiation [address] HT[address] [place] [address] Anusha Martines, SHEET ROCK APPLIER, DNP [address] [place] [address] 04/23/2025 11:10 AM EDT Office Visit [facility] Medicine Specialties [address], 2nd [place] [address] Dunia Menard, SHEET ROCK APPLIER [address] [place] [address] 05/26/2025 9:00 AM EDT Office Visit Professional [employer] [facility] [address] [facility], [address] [place] [address] June Jensen MD [address] 3[address] [place] [address] 06/02/2025 3:45 PM EDT Office Visit [facility] Medicine [facility] [address], [address] [place] [address] Micike Crocker DO [address] [place] [address] documented as of this encounter [...] documented as of this encounter Care Teams Collision Center Manager Relationship Specialty Start Date End Date Kiana Arenas PA [address] [facility] [place] [address] PCP - General 12/18/20 Grey Wu MD [address] [place] [address] Consulting Physician Radiation Oncology 09/16/24 Mini Cordova MD [address] [place] [address] Consulting Physician Palliative Medicine 11/27/24 Alonzo Ritter MD [address] [place] [address] Consulting Physician Medical Oncology 11/27/24 documented as of this encounter
--- OUTSIDE RECORDS SUMMARY | 2025-03-28 08:33 | XMS_ITS | Encounter Summary ---
Author Organization [facility] Address [address] [place] [address] Care Team Providers Care Manager Background Name Role Phone Kiana Arenas Primary Care Provider [phone] Grey Wu MD Unavailable [phone] Mini Cordova MD Unavailable [phone] Alonzo Ritter MD Unavailable Encounter Details Date Type Department Care Team (Latest Contact Info) Description 03/11/2025 Travel Social History Tobacco Use Types Packs/Day [...] CC Hematology/BMT and Cellular Therapy Program 750 [facility], [address] [address] 04/09/2025 9:30 AM EDT Office Visit [facility] CC Hematology/BMT and Cellular Therapy Program 750 [facility], [address] [facility] [address] Mini Cordova MD [address] [place] [address] 04/21/2025 10:30 AM EDT Appointment [facility] CC Radiation [address] [id number] [place] [address] Anusha Martines, COUNSELOR MANAGER, DNP 800 [facility] [address] [place] [address] 04/23/2025 11:10 AM EDT Office Visit [facility] Medicine Specialties [address], 2nd [place] [address] Dunia Menard, JOVANNY [address] [place] [address] 05/26/2025 9:00 AM EDT Office Visit [facility] [employer] [place] [facility] [address] [facility], [address] [place] [address] June Jensen MD [address] [facility] 3rd [address] [place] [address] 06/02/2025 3:45 PM EDT Office Visit [facility] Medicine Specialties [address], 2nd [place] [address] Mickie Crocker DO [address] [place] [address] documented as of this encounter [...] documented as of this encounter Care Teams Manager Background Relationship Specialty Start Date End Date Kiana Arenas PA [address] [facility] [place] [address] PCP - General 12/18/20 Grey Wu MD [address] [facility] [address] [place] [address] Consulting Physician Radiation Oncology 09/16/24 Mini Cordova MD [address] [place] [address] Consulting Physician Palliative Medicine 11/27/24 Alonzo Ritter MD [address] [facility] [address] [place] [address] Consulting Physician Medical Oncology 11/27/24 documented as of this encounter
--- OUTSIDE RECORDS SUMMARY | 2025-03-28 08:33 | XMS_ITS | Encounter Summary ---
Author Organization [facility] Address [address] [place] [address] Care Team Providers Care Wax Ball Molder Name Role Phone Kiana Arenas Primary Care Provider [phone] Grey Wu MD Unavailable [phone] Mini Cordova MD Unavailable [phone] Alonzo Ritter MD Unavailable Encounter Details Date Type Department Care Team (Late st Contact Info) Description 03/10/2025 Telephone [facility] CC Hematology/BMT and Cellular Therapy Program [address] [place] [address] Mini Cordova MD [address] [facility] [address] [place] [address] Social History Tobacco Use Types Packs/Day Years [...] Upcoming Encounters Date Type Department Care Team ([facility] st Contact Info) Description 04/09/2025 9:00 AM EDT Clinical Support PAV CC Hematology/BMT and Cellular Therapy Program [address] [phone] 04/09/2025 9:30 AM EDT Office Visit [facility] CC Hematology/BMT and Cellular Therapy Program [address] [phone] Mini Cordova MD [address] [facility] [address] [place] [address] 04/21/2025 10:30 AM EDT Appointment [facility] CC Radiation [address] [place] [address] Anusha Martines APRN, DNP 800 [facility] [address] [place] [address] 04/23/2025 11:10 AM EDT Office Visit [facility] Medicine Specialties [address], 2nd [place] [address] Dunia Menard APRN [address] [facility] [address] [place] [address] 05/26/2025 9:00 AM EDT Office Visit Professional [employer] [facility] [address] [facility], [address] [place] [address] June Jensen MD [address] [facility] 3[address] [place] [address] 06/02/2025 3:45 PM EDT Office Visit [facility] Medicine [facility] [address], 2[address] [place] [address] Mickie Crocker DO [address] [place] [address] documented as of this encounter [...] documented as of this encounter Care Teams Wax Ball Molder Relationship Specialty Start Date End Date Kiana Arenas PA [address] [place] [address] PCP - General 12/18/20 Grey Wu MD [address] [facility] [address] [place] [address] Consulting Physician Radiation Oncology 09/16/24 Mini Cordova MD [address] [place] [address] Consulting Physician Palliative Medicine 11/27/24 Alonzo Ritter MD [address] [place] [address] Consulting Physician Medical Oncology 11/27/24 documented as of this encounter
--- OUTSIDE RECORDS SUMMARY | 2025-03-28 08:33 | XMS_ITS | Encounter Summary ---
Author Organization [facility] Address [address] [place] [address] Care Team Providers Care Livestock Handler Name Role Phone Kiana Arenas Primary Care Provider [phone] Grey Wu MD Unavailable [phone] Mini Cordova MD Unavailable [phone] Alonzo Ritter MD Unavailable Reason for Visit * Reason Comments Med Refill Encounter Details Date Type Department Care Team (Late st Contact Info) Description 03/10/2025 Refill P[facility] CC Hematology/BMT and Cellular Therapy Program [address] [place] [address] Mini Cordova MD [address] [facility] [address] [place] [address] Social History Tobacco Use Types [...] Upcoming Encounters Date Type Department Care Team ([facility] st Contact Info) Description 04/09/2025 9:00 AM EDT Clinical Support PAV CC Hematology/BMT and Cellular Therapy Program [address] [phone] 04/09/2025 9:30 AM EDT Office Visit [facility] CC Hematology/BMT and Cellular Therapy Program [address] [phone] Mini Cordova MD [address] [place] [address] 04/21/2025 10:30 AM EDT Appointment [facility] CC Radiation [address] [place] [address] Anusha Martines APRN, DNP 800 [facility] [address] [place] [address] 04/23/2025 11:10 AM EDT Office Visit [place] [facility] Medicine Specialties [address], 2nd [place] [address] Dunia Menard APRN [address] [place] [address] 05/26/2025 9:00 AM EDT Office Visit [facility] Bone & Mineral Metabolism [address] [facility], [address] [place] [address] June Jensen MD [address] [facility] [address] [place] [address] 06/02/2025 3:45 PM EDT Office Visit [place] [facility] Medicine Specialties [address], [address] [place] [address] Obi Mickie, [address] [place] [address] documented as of this encounter [...] documented as of this encounter Care Teams Livestock Handler Relationship Specialty Start Date End Date Kiana Arenas PA [address] [place] [address] PCP - General 12/18/20 Grey Wu MD [address] [facility] [address] [place] [address] Consulting Physician Radiation Oncology 09/16/24 Mini Cordova MD [address] [place] [address] Consulting Physician Palliative Medicine 11/27/24 Alonzo Ritter MD [address] [place] [address] Consulting Physician Medical Oncology 11/27/24 documented as of this encounter
--- OUTSIDE RECORDS SUMMARY | 2025-03-28 08:33 | XMS_ITS | Encounter Summary ---
Author Organization [facility] Address [address] [place] [address] Care Team Providers Care Programmer Developer Name Role Phone Kiana Arenas Primary Care Provider [phone] Grey Wu MD Unavailable [phone] Mini Cordova MD Unavailable [phone] Alonzo Ritter MD Unavailable Encounter Details Date Type Department Care Team (Late st Contact Info) Description 03/10/2025 Telephone [facility] Medicine Specialties [address], [address]nd [place] [address] Mickie Crocker DO [address] [place] [address] Social History Tobacco Use Types [...] encounter Miscellaneous Notes * Telephone Encounter - Keshav Conner PharmD - 03/10/2025 12:41 PM EDT Clinical pharmacist called and ok'd use of 10mg tabs. documented in this encounter Plan of Treatment Upcoming Encounters Date Type Department Care Team ([facility] st Contact Info) Description 04/09/2025 9:00 AM EDT Clinical Support P[facility] CC Hematology/BMT and Cellular Therapy Program [address] [place] [phone] 04/09/2025 9:30 AM EDT Office Visit [facility] Hematology/BMT and Cellular Therapy Program [address] [phone] Mini Cordova MD [address] [facility] [address] [place] [address] 04/21/2025 10:30 AM EDT Appointment P[facility] CC Radiation [address] [facility] [address] [place] [address] Anusha Martines, WET END OPERATOR, DNP 800 [facility] [address] [place] [address] 04/23/2025 11:10 AM EDT Office Visit [place] [facility] Medicine Specialties [address], 2[address] [place] [address] Dunia Menard, JOVANNY [address] [place] [address] 05/26/2025 9:00 AM EDT Office Visit [facility] [place] Bone & Mineral Metabolism [address], [address] [place] [address] June Jensen MD [address] [place] [address] 06/02/2025 3:45 PM EDT Office Visit [facility] Medicine [facility] [address], [address] [place] [address] Mickie Crocker, [address] [place] [address] documented as of this encounter [...] documented as of this encounter Care Teams Programmer Developer Relationship Specialty Start Date End Date Kiana Arenas PA [address] [place] [address] PCP - General 12/18/20 Grey Wu MD [address] [place] [address] Consulting Physician Radiation Oncology 09/16/24 Mini Cordova MD [address] [place] [address] Consulting Physician Palliative Medicine 11/27/24 Alonzo Ritter MD [address] [facility] [address] Consulting Physician Medical Oncology 11/27/24 documented as of this encounter
--- OUTSIDE RECORDS SUMMARY | 2025-03-28 08:33 | XMS_ITS | Encounter Summary ---
Author Organization [facility] Address [address] [place] [address] Care Team Providers Care Parachute Accessories Attacher Name Role Phone Kiana Arenas Primary Care Provider [phone] Grey Wu MD Unavailable [phone] Mini Cordova MD Unavailable [phone] Alonzo Ritter MD Unavailable Encounter Details Date Type Department Care Team (Late st Contact Info) Description 03/07/2025 Orders Only [facility] Radiation [id number] [place] [address] Radiation Oncology, Physician, [address] [place] [address] Social History Tobacco Use Types Packs/Day [...] Upcoming Encounters Date Type Department Care Team ([facility] st Contact Info) Description 04/09/2025 9:00 AM EDT Clinical Support P[facility] CC Hematology/BMT and Cellular Therapy Program 750 [facility], [address] [place] [address] 04/09/2025 9:30 AM EDT Office Visit [facility] Hematology/BMT and Cellular Therapy Program 750 [facility], [address] [place] [address] Mini Cordova MD [address] [place] [address] 04/21/2025 10:30 AM EDT Appointment [facility] Radiation [id number] [place] [address] Anusha Martines, JOVANNY, DNP 800 [facility] [address] [place] [address] 04/23/2025 11:10 AM EDT Office Visit [facility] Medicine Specialties [address], 2nd [place] [address] Dunia Menard, SKEIN WINDING OPERATOR [address] [place] [address] 05/26/2025 9:00 AM EDT Office Visit Professional [facility] [address] [facility], [address] [place] [address] June Jensen MD [address] [facility] 3[address] [place] [address] 06/02/2025 3:45 PM EDT Office Visit [facility] Medicine Specialties [address], 2[address] [place] [address] ObiMickie, DO [address] [place] [address] documented as of this encounter Procedures Procedure Name Priority Date/Time Associated Diagnosis Comments RAD ONC ARIA COURSE SUMMARY Routine 03/07/2025 1:31 PM EDT documented in this encounter Results * Rad Onc Aria Course Summary (03/07/2025 1:31 PM EDT) Course ID IMRT QA ARIA RADIATION ONCOLOGY Course Start Date 12/13/2024 2:58 PM ARIA RADIATION ONCOLOGY Course End Date 03/07/2025 1:31 PM ARIA RADIATION ONCOLOGY Reference Point ID Verification ARIA RADIATION ONCOLOGY Reference Point Dosage Given to Date 0.0E0 Gy ARIA RADIATION ONCOLOGY Reference Point ID Verification1 ARIA RADIATION ONCOLOGY Reference Point Dosage Given to Date 0.0E0 Gy ARIA RADIATION ONCOLOGY Plan ID SBRT lung RLL ARIA RADIATION ONCOLOGY Plan Name SBRT lung RLL ARIA RADIATION ONCOLOGY Plan Fractions Treated to Date 0 ARIA RADIATION ONCOLOGY Plan Total Fractions Prescribed 1 ARIA RADIATION ONCOLOGY Plan Prescribed Dose Per Fraction [id number] Gy ARIA RADIATION ONCOLOGY Plan Total Prescribed Dose 750.5 CGy ARIA RADIATION ONCOLOGY Plan Primary Reference Point Verification ARIA RADIATION ONCOLOGY Plan ID RUL/RLL SBRT ARIA RADIATION ONCOLOGY Plan Name RUL/RLL SBRT ARIA RADIATION ONCOLOGY Plan Fractions Treated to Date 0 ARIA RADIATION ONCOLOGY Plan Total Fractions Prescribed 1 ARIA RADIATION ONCOLOGY Plan Prescribed Dose Per Fraction [id number] Gy ARIA RADIATION ONCOLOGY Plan Total Prescribed Dose 655.9 CGy ARIA RADIATION ONCOLOGY Plan Primary Reference Point Verification1 ARIA RADIATION ONCOLOGY 03/07/2025 1:31 PM EDT Physician Radiation Oncology RADIATION ONCOLO [...] documented as of this encounter Care Teams Parachute Accessories Attacher Relationship Specialty Start Date End Date Kiana Arenas PA [address] [facility] [place] [address] PCP - General 12/18/20 Grey Wu MD [address] [facility] [address] [place] [address] Consulting Physician Radiation Oncology 09/16/24 Mini Cordova MD [address] [facility] [address] [place] [address] Consulting Physician Palliative Medicine 11/27/24 Alonzo Ritter MD [address] [facility] [address] [place] [address] Consulting Physician Medical Oncology 11/27/24 documented as of this encounter
--- OUTSIDE RECORDS SUMMARY | 2025-03-28 08:33 | XMS_ITS | Encounter Summary ---
Author Organization Healthcare Address [address] [place] [address] Care Team Providers Care Auto Design Detailer Name Role Phone Dagoberto Yavapai Luh RODRIGUEZ Primary Care Provider [phone] Grey Wu MD Unavailable [phone] Mini Cordova MD Unavailable [phone] Alonzo Ritter MD Unavailable Encounter Details Date Type Department Care Team (Late Contact Info) Description 06/12/2022 Orders Only External Location [address] [place] [address] Lucita Luis MD [address] [place], [place] [id number] Social History Tobacco Use Types Packs/Day Years Used Date Smoking Tobacco: Every Day Comments Unknown Sex and Gender Information Value Date Recorded Sex Assigned at Not on file Legal Sex Female 6:02 PM EDT Gender Identity Not on file Sexual Orientation Not on file documented as of this encounter Plan of Treatment Upcoming Encounters Date Type Department Care Team (Late Contact Info) Description 04/09/2025 9:00 AM EDT Clinical Support [facility] Hematology/BMT and Cellular Therapy Program [address] [place] [address] 04/09/2025 9:30 AM EDT Office Visit [facility] Hematology/BMT and Cellular Therapy Program [address] [place] [address] iMni Cordova MD [address] [place] [address] 04/21/2025 10:30 AM EDT Appointment [facility] CC Radiation [address] [id number] [place] [address] Anusha Martines R, PARK SERVICES SPECIALIST, DNP [address] [place] [address] 04/23/2025 11:10 AM EDT Office Visit [facility] Medicine Specialties [address], 2nd [place] [address] Dunia Menard S, PARK SERVICES SPECIALIST [address] [place] [address] 05/26/2025 9:00 AM EDT Office Visit Professional [facility] [address], [address] [place] [address] June Jensen MD [address] 3[address] [place] [address] 06/02/2025 3:45 PM EDT Office Visit [facility] Medicine Specialties [address], [address] [place] [address] Mickie Crocker DO [address] [place] [address] documented as of this encounter Procedures Procedure Name Priority Date/Time Associated Diagnosis Comments CT MSK OUTSIDE IMAGES 06/12/2022 6:09 PM EST documented in this encounter Results * CT MSK OUTSIDE IMAGES (06/12/2022 6:09 PM EST) Anatomical Region Laterality Modality Computed Tomogra phy 06/12/2022 6:09 PM EST Lucita Luis MD IMG CT PROCEDURES Final Resul t documented in this encounter Visit Diagnoses Not on filedocumented in this encounter Care Teams Auto Design Detailer Relationship Specialty Start Date End Date Kiana Arenas PA [address] [place], [place] [phone] PCP - General 12/18/20 Grey Wu MD 800 [facility] [address] [place] [address] Consulting Physician Radiation Oncology 09/16/24 Mini Cordova MD [address] [facility] [address] [place] [address] Consulting Physician Palliative Medicine 11/27/24 Alonzo Ritter MD [address] [facility] [address] [facility] [facility] [address] [place] [address] Consulting Physician Medical Oncology 11/27/24 documented as of this encounter
--- OUTSIDE RECORDS SUMMARY | 2025-03-28 08:33 | XMS_ITS | Encounter Summary ---
Author Organization [facility] Address [address] [place] [address] Care Team Providers Care Triage Rn Name Role Phone Kiana Arenas Primary Care Provider [phone] Grey Wu MD Unavailable [phone] Mini Cordova MD Unavailable [phone] Alonzo Ritter MD Unavailable Encounter Details Date Type Department Care Team (Late st Contact Info) Description 03/12/2025 Telephone Psych Oncology [address] [place] [address] Susanne Ortiz, RD Social History Tobacco Use Types Packs/Day Years [...] encounter Miscellaneous Notes * Telephone Encounter - Susanne Ortiz RD - 03/12/2025 9:55 AM EDT Reason for call: Boost Referral source: Palliative Wt Readings from Last 5 Encounters: 03/05/25 54.7 kg (120 lb 8 oz) 01/20/25 54.4 kg (119 lb 14.9 oz) 01/20/25 54.7 kg (120 lb 9.5 oz) 12/18/24 54.3 kg (119 lb 11.4 oz) 11/27/24 54.8 kg (120 lb 13 oz) Estimated body mass index is 20.05 kg/m?? as calculated from the following: Height as of 03/05/25: 1.651 m (5' 5 ). Weight as of 03/05/25: 54.7 kg (120 lb 8 oz).' Call details: Pt with hx lung cancer. Referral for Boost. Attempted to call pt. Pt phone number was not in serviced. Called pt spouse and LVM explaining reason for call and encouraging to call back at their availability. RD available PRN for nutrition-related question and concerns. Nutrition education provided: Boost Coupons documented in this encounter Plan of Treatment Upcoming Encounters Date Type Department Care Team ([facility] st Contact Info) Description 04/09/2025 9:00 AM EDT Clinical Support PAV Hematology/BMT and Cellular Therapy Program [address] [place] [address] 04/09/2025 9:30 AM EDT Office Visit [facility] CC Hematology/BMT and Cellular Therapy Program [address] [place] [address] Mini Cordova MD [address] [facility] [address] [place] [address] 04/21/2025 10:30 AM EDT Appointment P[facility] CC Radiation [address] [facility] [id number] [place] [address] Anusha Martines, LIGHTER, DNP [address] [place] [address] 04/23/2025 11:10 AM EDT Office Visit [facility] Medicine Specialties [address] 2nd [place] [address] Dunia Menard, LIGHTER [address] [place] [address] 05/26/2025 9:00 AM EDT Office Visit [facility] [place] [facility] [address] [facility], [address] [place] [address] June Jensen MD [address] 3[address] [place] [address] 06/02/2025 3:45 PM EDT Office Visit [facility] Medicine Specialties [address], 2nd [place] [address] Mickie Crocker DO [address] [place] [address] documented as of this encounter Visit Diagnoses [...] documented as of this encounter Care Teams Triage Rn Relationship Specialty Start Date End Date Kiana Arenas PA [address] [place] [address] PCP - General 12/18/20 Grey Wu MD [address] [place] [address] Consulting Physician Radiation Oncology 09/16/24 Mini Cordova MD [address] [place] [address] Consulting Physician Palliative Medicine 11/27/24 Alonzo Ritter MD [address] [place] [address] Consulting Physician Medical Oncology 11/27/24 documented as of this encounter
--- OUTSIDE RECORDS SUMMARY | 2025-03-28 08:33 | XMS_ITS | Encounter Summary ---
Author Organization [facility] Address [address] [place] [address] Care Team Providers Care Band Attacher Name Role Phone Kiana Arenas Primary Care Provider [phone] Grey Wu MD Unavailable [phone] Mini Cordova MD Unavailable [phone] Alonzo Ritter MD Unavailable Reason for Visit * Reason Onset Date Comments Med Refill 03/11/2025 Encounter Details Date Type Department Care Team (Late st Contact Info) Description 03/11/2025 Refill [facility] Medicine Specialties [address], [address] [place] [address] Mickie Crocker DO [address] [place] [address] Seropositive rheumatoid arthritis of multiple sites (CMS/HCC) Social History Tobacco Use Types Packs/Day Years [...] encounter Miscellaneous Notes * Telephone Encounter - Oscar Gomez PharmD - 03/11/2025 9:34 AM EDT 1 medication(s) has been approved per protocol. documented in this encounter Plan of Treatment Upcoming Encounters Date Type Department Care Team ([facility] st Contact Info) Description 04/09/2025 9:00 AM EDT Clinical Support [facility] CC Hematology/BMT and Cellular Therapy Program [address] [address] 04/09/2025 9:30 AM EDT Office Visit [facility] CC Hematology/BMT and Cellular Therapy Program [address] [address] Mini Cordova MD [address] [facility] [address] [place] [address] 04/21/2025 10:30 AM EDT Appointment PAV CC Radiation 800 [facility] [address] [place] [address] Anusha Martines APRN, DNP [address] [facility] [address] [place] [address] 04/23/2025 11:10 AM EDT Office Visit [facility] Medicine Specialties [address] [place] [address] Dunia Menard, BALLAST REGULATOR OPERATOR [address] [place] [address] 05/26/2025 9:00 AM EDT Office Visit Professional [employer] [facility] [address] [place] [address] June Jensen MD [address] [place] [address] 06/02/2025 3:45 PM EDT Office Visit [facility] [address], [address] [place] [address] Mickie Crocker DO [address] [place] [address] documented as of this encounter Visit Diagnoses Diagnosis Seropositive rheumatoid arthritis of multiple sites (CMS/[facility]) documented in this encounter Additional Health Concerns Assessment Noted Time PHQ-9 Depression Total Score: 6 03/05/20 10:00 AM EDT A fall risk assessment has been complete d for the patient 01/20/2025 1:32 PM EDT A Body Mass Index follow-up plan has been documented for the patient 01/21/2025 3:27 PM EDT documented as of this encounter Care Teams Band Attacher Relationship Specialty Start Date End Date Kiana Arenas PA [address] [facility] [place] [address] PCP - General 12/18/20 Grey Wu MD [address] [place] [address] Consulting Physician Radiation Oncology 09/16/24 Mini Cordova MD [address] [place] [address] Consulting Physician Palliative Medicine 11/27/24 Alonzo Ritter MD 800 [facility] [address] [address] Consulting Physician Medical Oncology 11/27/24 documented as of this encounter
--- OUTSIDE RECORDS SUMMARY | 2025-03-28 08:33 | XMS_ITS | Encounter Summary ---
Author Organization Healthcare Address [address] [place] [address] Care Team Providers Care Quality Control Head Name Role Phone Kiana Arenas Primary Care Provider [phone] Grey Wu MD Unavailable [phone] Mini Cordova MD Unavailable [phone] Alonzo Ritter MD Unavailable Encounter Details Date Type Department Care Team (Latest Contact Info) Description 03/10/2025 Travel Social History Tobacco Use Types Packs/Day [...] CC Hematology/BMT and Cellular Therapy Program 750 [facility], [address] [address] 04/09/2025 9:30 AM EDT Office Visit [facility] CC Hematology/BMT and Cellular Therapy Program 750 [facility], [address] [address] Mini Cordova MD [address] [place] [address] 04/21/2025 10:30 AM EDT Appointment [facility] CC Radiation [address] [place] [address] Anusha Martines, BUS WASHER, DNP 800 [facility] [address] [place] [address] 04/23/2025 11:10 AM EDT Office Visit [facility] Medicine Specialties [address] [place] [address] Dunia Menard, JOVANNY [address] [place] [address] 05/26/2025 9:00 AM EDT Office Visit [facility] [place] [facility] [address] [facility], [address] [place] [address] June Jensen MD [address] [facility] 3[address] [place] [address] 06/02/2025 3:45 PM EDT Office Visit [facility] Medicine Specialties [address], [address] [place] [address] Mickie Crocker DO [address] [place] [address] documented as of this encounter [...] documented as of this encounter Care Teams Quality Control Head Relationship Specialty Start Date End Date Kiana Arenas PA [address] [facility] [place] [address] PCP - General 12/18/20 Grey Wu MD [address] [facility] [address] [place] [address] Consulting Physician Radiation Oncology 09/16/24 Mini Cordova MD [address] [place] [address] Consulting Physician Palliative Medicine 11/27/24 Alonzo Ritter MD [address] [facility] [address] [place] [address] Consulting Physician Medical Oncology 11/27/24 documented as of this encounter
--- OUTSIDE RECORDS SUMMARY | 2025-03-28 08:33 | XMS_ITS | Encounter Summary ---
Author Organization [facility] Address [address] [place] [address] Care Team Providers Care Finished Metal Repairer Name Role Phone Kiana Arenas Primary Care Provider [phone] Grey Wu MD Unavailable [phone] Mini Cordova MD Unavailable [phone] Alonzo Ritter MD Unavailable Encounter Details Date Type Department Care Team (Late st Contact Info) Description 03/12/2025 Orders Only [facility] CC Radiation [address] [place] [address] Radiation Oncology, Physician, [address] [place] [address] Social History Tobacco Use Types Packs/Day [...] Upcoming Encounters Date Type Department Care Team ([facility] st Contact Info) Description 04/09/2025 9:00 AM EDT Clinical Support PAV CC Hematology/BMT and Cellular Therapy Program 750 [facility], [address] [place] [address] 04/09/2025 9:30 AM EDT Office Visit [facility] CC Hematology/BMT and Cellular Therapy Program [address] [facility], [address] [place] [address] Mini Cordova MD [address] [place] [address] 04/21/2025 10:30 AM EDT Appointment P[facility] CC Radiation [address] [id number] [place] [address] Anusha Martines, JOVANNY, DNP 800 [facility] [address] [place] [address] 04/23/2025 11:10 AM EDT Office Visit [facility] Medicine Specialties [address] [place] [address] Dunia Menard, SUPERVISOR/PORT DIRECTOR [address] [place] [address] 05/26/2025 9:00 AM EDT Office Visit Professional [employer] [facility] [address] [facility], [address] [place] [address] June Jensen MD [address] [facility] 3[address] [place] [address] 06/02/2025 3:45 PM EDT Office Visit [facility] Medicine Specialties [address] [place] [address] ObiMickie, DO [address] [place] [address] documented as of this encounter Procedures Procedure Name Priority Date/Time Associated Diagnosis Comments RAD ONC ARIA SESSION SUMMARY Routine 03/12/2025 9:24 AM EDT documented in this encounter Results * Rad Onc Aria Session Summary (03/12/2025 9:24 AM EDT) Course ID C1 - Actual Tx ARIA RADIATION ONCOLOGY Course Intent Unknown ARIA RADIATION ONCOLOGY Course Start Date 02/19/2025 12:11 PM ARIA RADIATION ONCOLOGY Course First Treatment Date 03/05/2025 9:31 AM ARIA RADIATION ONCOLOGY Course Last Treatment Date 03/12/2025 9:16 AM ARIA RADIATION ONCOLOGY Course Elapsed Days 7 ARIA RADIATION ONCOLOGY Reference Point ID RUL/RLL SBRT ARIA RADIATION ONCOLOGY Reference Point Dosage Given to Date 30 Gy ARIA RADIATION ONCOLOGY Reference Point Session Dosage Given 10 Gy ARIA RADIATION ONCOLOGY Plan ID RUL/RLL SBRT ARIA RADIATION ONCOLOGY Plan Name RLL SBRT ARIA RADIATION ONCOLOGY Plan Fractions Treated to Date 3 ARIA RADIATION ONCOLOGY Plan Total Fractions Prescribed 5 ARIA RADIATION ONCOLOGY Plan Prescribed Dose Per Fraction 10 Gy ARIA RADIATION ONCOLOGY Plan Total Prescribed Dose 5,000 CGy ARIA RADIATION ONCOLOGY Plan Primary Reference Point RUL/RLL SBRT ARIA RADIATION ONCOLOGY 03/12/2025 9:24 AM EDT Physician Radiation Oncology RADIATION ONCOLO [...] documented as of this encounter Care Teams Finished Metal Repairer Relationship Specialty Start Date End Date Kiana Arenas PA [address] [place] [address] PCP - General 12/18/20 Grey Wu MD 800 [facility] [address] [place] [address] Consulting Physician Radiation Oncology 09/16/24 Mini Cordova MD [address] [place] [address] Consulting Physician Palliative Medicine 11/27/24 Alonzo Ritter MD 800 [facility] [address] [place] [address] Consulting Physician Medical Oncology 11/27/24 documented as of this encounter
--- OUTSIDE RECORDS SUMMARY | 2025-03-28 08:33 | XMS_ITS | Encounter Summary ---
Author Organization Healthcare Address [address] [place] [address] Care Team Providers Care Rental Manager Name Role Phone Kiana Arenas Primary Care Provider [phone] Grey Wu MD Unavailable [phone] Mini Cordova MD Unavailable [phone] Alonzo Ritter MD Unavailable Encounter Details Date Type Department Care Team (Latest Contact Info) Description 03/08/2025 Travel Social History Tobacco Use Types Packs/Day [...] CC Hematology/BMT and Cellular Therapy Program 750 [facility], [address] [place] [address] 04/09/2025 9:30 AM EDT Office Visit [facility] CC Hematology/BMT and Cellular Therapy Program 750 [facility], [address] [facility] [place] [address] Mini Cordova MD [address] [place] [address] 04/21/2025 10:30 AM EDT Appointment PAV CC Radiation [address] [place] [address] Anusha Martines, VARIETY SAW OPERATOR, DNP 800 [facility] [address] [place] [address] 04/23/2025 11:10 AM EDT Office Visit [facility] Medicine Specialties [address] [place] [address] Dunia Menard, JOVANNY [address] [place] [address] 05/26/2025 9:00 AM EDT Office Visit [facility] [address] [facility], [address] [place] [address] June Jensen MD [address] [facility] [address] [place] [address] 06/02/2025 3:45 PM EDT Office Visit [facility] Medicine Specialties [address], [address] [place] [address] Mickie Crocker DO [address] [place] [address] documented as of this encounter [...] documented as of this encounter Care Teams Rental Manager Relationship Specialty Start Date End Date Kiana Arenas PA [address] [facility] [place] [address] PCP - General 12/18/20 Grey Wu MD [address] [facility] [address] [place] [address] Consulting Physician Radiation Oncology 09/16/24 Mini Cordova MD [address] [place] [address] Consulting Physician Palliative Medicine 11/27/24 Alonzo Ritter MD [address] [facility] [address] [place] [address] Consulting Physician Medical Oncology 11/27/24 documented as of this encounter
--- OUTSIDE RECORDS SUMMARY | 2025-03-28 08:34 | XMS_ITS | Encounter Summary ---
Author Organization [facility] Address [address] [place] [address] Care Team Providers Care Small Kick Press Operator Name Role Phone Kiana Arenas Primary Care Provider [phone] Grey Wu MD Unavailable [phone] Mini Cordova MD Unavailable [phone] Alonzo Ritter MD Unavailable Encounter Details Date Type Department Care Team (Late Contact Info) Description 10/12/2021 Community [facility] [address] [place] [address] Kiana Arenas, MICHAEL [address] [facility] [place] [id number] Chronic obstructive pulmonary disease, unspecified COPD type (CMS/HCC) (Primary Dx) Social History Tobacco Use Types Packs/Day Years Used Date Smoking Tobacco: Former Comments Unknown Sex and Gender Information Value [...] [facility] [address] [place] [phone] 04/09/2025 9:30 AM EDT Office Visit [facility] [address] [place] [address] Mini Cordova MD [address] [phone] 04/21/2025 10:30 AM EDT Appointment [facility] Radiation [address] [id number] [address] Anusha Martines, TRANSPORTATION PLANNER, DNP [address] [place] [address] [address] 04/23/2025 11:10 AM EDT Office Visit [facility] Medicine Specialties [address] [address] Dunia Menard, TRANSPORTATION PLANNER [address] [address] 05/26/2025 9:00 AM EDT Office Visit [email or web address] [address] [facility], [address] [address] Jnue Jensen MD [address] [place] [address] [phone] 06/02/2025 3:45 PM EDT Office Visit [facility] Medicine Specialties [address] [address] Mickie Crocker DO [address] [place] [address] [phone] documented as of this encounter Visit Diagnoses Diagnosis Chronic obstructive pulmonary disease, unspecified COPD type (CMS/HCC)- Primary documented in this encounter Care Teams Small Kick Press Operator Relationship Specialty Start Date End Date Kiana Arenas PA [address] [place] [address] PCP - General 12/18/20 Grey Wu MD [address] [facility] C114D [phone] Consulting Physician Radiation Oncology 09/16/24 Mini Cordova [facility] [address] [facility] [address] [address] Consulting Physician Palliative Medicine 11/27/24 Alonzo Ritter MD [address] [facility] [address] [address] Consulting Physician Medical Oncology 11/27/24 documented as of this encounter
--- OUTSIDE RECORDS SUMMARY | 2025-03-28 08:34 | XMS_ITS | Clinical Summary ---
Author Organization [facility] Address [address] [place] [address] Care Team Providers Care Sample Collector Name Role Phone Kiana Arenas Primary Care Provider [phone] Allergies Active Allergy Reactions Criticality Noted Date Comments Cefaclor Hives 02/25/2016 Sulfa Antibiotics Hives 02/25/2016 Medications omeprazole (PriLOSEC) 20 MG capsule Take 20 mg by mouth daily. Active potassium chloride (K-DUR) 10 MEQ CR tablet Take 10 mEq by mouth 2 (two) times a day. Active estradiol (ESTRACE) 1 MG tablet Take 1 mg by mouth daily. Active oxybutynin (DITROPAN) 5 MG tablet Take 5 mg by mouth 2 (two) times a day. Active furosemide (LASIX) 20 MG tablet Take 20 mg by mouth daily. Active phenazopyridine (PYRIDIUM) 100 MG tablet Take 100 mg by mouth 3 (three) times a day as needed for bladder spasms. Active gabapentin (NEURONTIN) 800 MG tablet Take 800 mg by mouth 3 (three) times a day. Active budesonide-form oterol (SYMBICORT) 80-4.5 MCG/ACT inhaler Inhale 2 puffs 2 (two) times a day. Active meloxicam (MOBIC) 7.5 MG tablet Take 7.5 mg by mouth daily. Active carvedilol (COREG) 6.25 MG tablet Take 6.25 mg by mouth 2 (two) times a day with meals. Active albuterol (PROVENTIL) (2.5 MG/3ML) 0.083% nebulizer solution Take 2.5 mg by nebulization every 4 (four) hours as needed for wheezing. Active tiotropium (SPIRIVA) 18 MCG per inhalation capsule Place 1 capsule into inhaler and inhale 1 (one) time daily. Active HYDROcodone-shayy taminophen (VICODIN) 7.5-500 MG per tablet Take 1 tablet by mouth every 8 (eight) hours as needed for moderate pain (4-6). Active pregabalin (LYRICA) 75 MG capsule Take 100 mg by mouth 2 (Two) Times a Day. Active buprenorphine-n aloxone (SUBOXONE) 8-[address] tablet [address] 1 tablet under the tongue 2 (Two) Times a Day. Active ibuprofen (ADVIL,MOTRIN) 600 MG tablet Take 600 mg by mouth 3 (Three) Times a Day. Active levothyroxine (SYNTHROID, LEVOTHROID) 75 MCG tablet Take 75 mcg by mouth Daily. Active carisoprodol (SOMA) 350 MG tabletIndicatio ns:Compression fracture of body of thoracic vertebra Take 1 tablet by mouth 3 (Three) Times a Day As Needed for Muscle Spasms. 45 tablet 0 Active Active Problems No known active problems Family History Medical History Relation Name Comments Heart attack Brother Heart attack Father Heart disease Mother Heart attack Sister Relation Name Status Comments Brother Father Mother Sister Social History Tobacco Use Types Packs/Day Years Used Date Smoking Tobacco: Every Day Cigarettes 1 30 Smokeless Tobacco: Never Tobacco Cessation:Ready to Q uit: Yes; Counseling Given: Yes Comments:currently using chantix Alcohol Use Standard Drinks/Week Comments No 0 (1 standard drink = 0.6 oz pur e alcohol) Comments Unknown Sex and Gender Information Value Date Recorded Sex Assigned at Not on file Legal Sex Female 9:42 AM EDT Gender Identity Not on file Sexual Orientation Not on file Last Filed Vital Signs Vital Sign Reading Time Taken Comments Blood Pressure 110/68 09/16/2019 1:12 PM EST Pulse 87 02/25/2016 7:30 PM EDT Temperature 36.7 C (98.1 F) 09/16/2019 1:12 PM EST Respiratory Rate 16 02/25/2016 4:15 PM EDT Oxygen Saturation 94% 02/25/2016 7:30 PM EDT Inhaled Oxygen Concentration - - Weight 49.9 kg (110 lb) 10/12/2024 5:49 PM EST Height 167.6 cm (5' 6 ) 10/12/2024 5:49 PM EST Body Mass Index 17.75 10/12/2024 5:49 PM EST Plan of Treatment Health Maintenance Due Date Last Done Comments Annual Gynecologic Pelvic an d Breast Exam 1969 MAMMOGRAM 2009 COLOGUARD 2014 COLON CANCER SCREENING 5 YEA R SIGMOIDOSCOPY 2014 COLONOSCOPY [address] CANCER SCREENING 2014 CT COLONOGRAPHY 2014 FECAL OCCULT BLOOD TEST 2014 FIT Testing (1 year) 2014 ZOSTER VACCINE (1 of 2) 2019 ANNUAL PHYSICAL 09/04/2019 COVID-19 Vaccine (2023- 5 season) 2024 08/23/2021, 08/02/2021 INFLUENZA VACCINE 05/07/2025 05/27/2024, , 06/21/2017, Additional history exists TDAP/TD VACCINES (2 - Td or Tdap) 05/27/2034 024 Pneumococcal Vaccine 50+ Completed 01/13/2023, 05/09 HEPATITIS C SCREENING Completed 06/28/2024, 023 Insurance [employer] Advance Directives * Full Code (Latest Code Status on File) Date Activated Date Inactivated Comments 02/25/2016 6:39 PM 02/25/2016 9:46 PM Care Teams Sample Collector Relationship Specialty Start Date End Date Kiana Arenas PA PCP - General Physician Security Systems Installer 08/29/19
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
--- OUTSIDE RECORDS SUMMARY | 2025-03-28 08:34 | XMS_ITS | Encounter Summary ---
Author Organization Healthcare Address [address] [place] [id number] Care Team Providers Care Internal Audit Director Name Role Phone Dagoberto Kiana RODRIGUEZ Primary Care Provider [phone] Grey Wu MD Unavailable [phone] Mini Cordova MD Unavailable [phone] Alonzo Ritter MD Unavailable Encounter Details Date Type Department Care Team (Late Contact Info) Description 04/19/2021 Orders Only External Location [address] [place] [address] Stiven Haskins MD [address] [place], [place] [phone] Social History Tobacco Use Types Packs/Day Years [...] [facility] Hematology/BMT and Cellular Therapy Program [address] [place] [address] 04/09/2025 9:30 AM EDT Office Visit [facility]MT [facility] Cellular Therapy Program [address] [place] [address] Mini Cordova MD [address] [place] [address] 04/21/2025 10:30 AM EDT Appointment [facility] CC Radiation [id number] [place] [address] Anusha Martines, FINAL FINISHER FORGING DIES, DNP [address] [place] [address] [place] [address] 04/23/2025 11:10 AM EDT Office Visit [facility] Medicine Specialties [address] [place] [address] Dunia Menard, FINAL FINISHER FORGING DIES [address] [place] [address] 05/26/2025 9:00 AM EDT Office Visit [facility] [address], [address] [place] [address] June Jensen MD [address] [place] [address] 06/02/2025 3:45 PM EDT Office Visit [facility] Medicine Specialties [address] [place] [address] Mickie Crocker DO [address] [place] [phone] documented as of this encounter Procedures Procedure Name Priority Date/Time Associated Diagnosis Comments XR OUTSIDE IMAGES 04/19/2021 4:37 PM EDT documented in this encounter Results * XR OUTSIDE IMAGES (04/19/2021 4:37 PM EDT) Anatomical Region Laterality Modality Radiographic Shantal ging 04/19/2021 4:37 PM EDT Stiven Haskins MD IMG XR PROCEDURES Final Result documented in this encounter Visit Diagnoses Not on filedocumented in this encounter Care Teams Internal Audit Director Relationship Specialty Start Date End Date Kiana Arenas PA [address] [place], [place] [phone] PCP - General 12/18/20 Grey Wu MD [address] [facility] [address] [place] [address] Consulting Physician Radiation Oncology 09/16/24 Mini Cordova MD [address] [place] [address] Consulting Physician Palliative Medicine 11/27/24 Alonzo Ritter MD [address] [facility] [address] [place] [address] Consulting Physician Medical Oncology 11/27/24 documented as of this encounter
--- OUTSIDE RECORDS SUMMARY | 2025-03-28 08:34 | XMS_ITS | Patient Health Record ---
Author Organization [facility] Address [address] [place] [address] [address] [place] [address] Care Team Providers Care Drier Unloader Name Role Phone Kiana Wallace Mem Unavailable U navailable Allergies Allergen (clinical drug ingredient) Drug/Non Drug Allergy documented on EMR Reaction Allergy Type Onset Date Status cefaclor cefaclor hives Drug Allergy Active sulfamethoxazole hives Drug Allergy Active trimethoprim trimethoprim rash Drug Allergy A ctive Reason For Referral No Information Medications Medication SIG (Take, Route, Frequency, Duration) Notes Start Date End Date Status TiZANidine Hydrochloride 4 mg 1 tab(s) orally every 8 hours; Duration: 30 day(s) Active Amitriptyline Hydrochloride 25 mg 1 tab(s) orally once a day (at bedtime); Duration: 30 day(s) 06/21/2023 Active estradiol 1 mg 1 tab(s) orally once a day; Duration: 30 day(s) 07/21/2022 Active furosemide 20 mg 1 tab(s) orally once a day; Duration: 30 day(s) 07/21/2022 Active carvedilol 3.125 mg 1 tab(s) orally 2 ti mes a day; Duration: 30 day(s) 07/21/2022 Active cyanocobalamin 1000 mcg/mL as directed intramuscularly once a month; Duration: 30 day(s) 07/21/2022 Active azithromycin 250 mg 2 tablets on the day, then 1 tablet daily for 4 days 07/21/2022 Active ibuprofen 800 mg 1 tab(s) orally 3 ti mes a day 10/19/2022 Active Calcium 600+D 600 mg-5 mcg 1 tab(s) orally 3 times a day; Duration: 30 day(s) 07/21/2022 Active levothyroxine 137 mcg (0.137 mg) 1 tab(s) orally once a day; Duration: 30 day(s) 10/19/2022 Active omeprazole 20 mg 1 cap(s) orally once a day; Duration: 30 day(s) 07/21/2022 Active alendronate 70 mg 1 tab(s) orally once a week; Duration: 28 day(s) 07/21/2022 Active potassium chloride 10 mEq 1 tab(s) orally 2 times a day; Duration: 30 day(s) 07/21/2022 Active Incruse Ellipta 62.5 mcg (0.0625 mg)/inh 1 INH inhaled every 24 hours 07/21/2022 Active montelukast 10 mg 1 tab(s) orally once a day; Duration: 30 day(s) 07/21/2022 Active Ibuprofen 800 mg 1 tab Oral tid prn; Duration: 15 days 07/21/2022 Active gabapentin 600 mg 1 tab(s) orally 3 ti mes a day; Duration: 30 day(s) DO NOT FILL ANY SOONER THAN EVERY 30 DAYS, (OK TO FILL EARLY, ONLY IF CLOSED) 07/28/2023 Active Problems Problem Type SNOMED Code ICD Code Onset Dates Problem Status W/U Status Risk Notes Problem Chronic pain syndrome (036577585) Chronic pain syndrome (G89.4) Active confirmed Problem Cervical spondylosis without myelopathy (293837884) Spondylosis without myelopathy or radiculopathy, 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) Active confirmed Problem Cervical radiculopathy (13213070) Radiculopathy, cervicothoracic region (M54.13) Active confirmed Problem Thoracic radiculopathy (03345277) Radiculopathy, thoracic region (M54.14) Active confirmed Problem Neuralgia (45666986) Neuralgia and neuritis, unspecified (M79.2) Active confirmed Problem Late effect of fracture of spine AND/OR trunk without spinal cord lesion (1393402) Wedge compression fracture of T7-T8 vertebra, sequela (S22.060S) Active confirmed Problem Long-term current use of drug therapy (728615965) Other alf (current) drug therapy (Z79.899) Active confirmed Plan Of Treatment No Information Insurance Providers Payer Name Payer Address Payer Phone Subscriber Number Group Number Insured Name Patient Relationship to Insured Coverage Start Date Coverage End Date [employer] [address] [address] [place] [address] [id number] Erinn Nunez Self - patient is the insured 0 Medical (General) History Medical History History ICD Code COPD 2012/ managed by [facility] Thrombosis 2016 / managed by [facility] GERD 2012 /managed by Dr.Dixie Arenas Hypertension 2014/ managed by Dr.Shockwe leo Surgical History Surgery Date(Month/Year) RT Carpal Tunnel Release / Dr.Dixie Adams e / (OP) 2004 Hysterectomy / [facility] / 1 week stay 1995 Hospitalization History Reason Date(Month/Year)
--- OUTSIDE RECORDS SUMMARY | 2025-03-28 08:34 | XMS_ITS | Encounter Summary ---
Author Organization Healthcare Address [address] [place] [address] Care Team Providers Care Cashier Gambling Name Role Phone Kiana Arenas Primary Care Provider [phone] Grey Wu MD Unavailable [phone] Mini Cordova MD Unavailable [phone] Alonzo Ritter MD Unavailable Encounter Details Date Type Department Care Team (Late Contact Info) Description 05/11/2024 Orders Only External Location [address] [place] [phone] Provider, External Social History Tobacco Use Types Packs/Day Years Used Date Smoking Tobacco: Every Day Cigarettes 0.3 41.2 Started: 01/17/1984 Passive Smoke Exposure: Current Smokeless Tobacco: Never Comments:Smoking 2-3 cigaret sharyn daily Alcohol Use Standard Drinks/Week Comments Never 0 (1 standard drink = 0.6 oz pur e alcohol) PHQ-2 Answer Date Recorded Patient Health Questionnaire-2 Score 2 02/28/2024 Comments Unknown Sex and Gender Information Value [...] [facility] Hematology/BMT and Cellular Therapy Program [address] [facility] [place] [address] 04/09/2025 9:30 AM EDT Office Visit [facility] H[facility]ology[facility]BMT [facility] Cellular Therapy [facility] [address] [place] [address] Mini Cordova MD [address] [place] [phone] 04/21/2025 10:30 AM EDT Appointment [facility] Radiation [id number] [place] [address] Anusha Martines, ADMINISTRATIVE TECHNICIAN, DNP [address] [place] [address] 04/23/2025 11:10 AM EDT Office Visit [facility] Medicine Specialties [address] [place] [address] Dunia Menard, ADMINISTRATIVE TECHNICIAN [address] [place] [address] 05/26/2025 9:00 AM EDT Office Visit [facility] Bone & Mineral Metabolism [address] [facility], [address] [place] [address] June Jensen MD [address] [facility] [address] [place] [address] 06/02/2025 3:45 PM EDT Office Visit [facility] Specialties [address] [place] [address] Mickie Crocker DO [address] [place] [address] documented as of this encounter Procedures Procedure Name Priority Date/Time Associated Diagnosis Comments CT NEURO OUTSIDE IMAGES 05/11/2024 11:50 AM EDT documented in this encounter Results * CT NEURO OUTSIDE IMAGES (05/11/2024 11:50 AM EDT) Anatomical Region Laterality Modality Computed Tomogra phy 05/11/2024 11:5 0 AM EDT External Provider IMG CT PROCEDURES Final Result documented in this encounter Visit Diagnoses Not on filedocumented in this encounter Additional Health Concerns Assessment Noted Time A fall risk assessment has been complete d for the patient 02/28/2024 3:40 PM EDT A Body Mass Index follow-up plan has been documented for the patient 02/28/2024 4:30 PM EDT documented as of this encounter Care Teams Cashier Gambling Relationship Specialty Start Date End Date Kiana Arenas PA [address] [place] [address] PCP - General 12/18/20 Grey Wu MD [address] [facility] [address] [place] [phone] Consulting Physician Radiation Oncology 09/16/24 Mini Cordova MD [address] [place] [address] Consulting Physician Palliative Medicine 11/27/24 Alonzo Ritter MD [address] [facility] [address] [place] [phone] Consulting Physician Medical Oncology 11/27/24 documented as of this encounter
--- OUTSIDE RECORDS SUMMARY | 2025-03-28 08:34 | XMS_ITS | Encounter Summary ---
Author Organization Healthcare Address [address] [place] [address] Care Team Providers Care Safety Engineer Pressure Vessels Name Role Phone Kiana Arenas Primary Care Provider [phone] Grey Wu MD Unavailable [phone] Mini Cordova MD Unavailable [phone] Alonzo Ritter MD Unavailable Encounter Details Date Type Department Care Team (Late Contact Info) Description 05/11/2024 Orders Only External Location [address] [place] [phone] Provider, External Social History Tobacco Use Types [...] Hematology/BMT and Cellular Therapy Program [address] [facility], [address] [place] [address] 04/09/2025 9:30 AM EDT Office Visit [facility] Hematology/BMT and Cellular Therapy Program [address] [place] [address] Mini Cordova MD [address] [place] [address] 04/21/2025 10:30 AM EDT Appointment [facility] Radiation [id number] [place] [address] Anusha Martines, JUNIOR TECHNICAL WRITER, DNP [address] [place] [address] 04/23/2025 11:10 AM EDT Office Visit [facility] Specialties [address] [place] [address] Dunia Menard, JUNIOR TECHNICAL WRITER [address] [place] [address] 05/26/2025 9:00 AM EDT Office Visit [facility] Bone & Mineral Metabolism [address] [facility], [address] [place] [address] June Jensen MD [address] [facility] [address] [place] [address] 06/02/2025 3:45 PM EDT Office Visit [facility] Specialties [address] [place] [address] Mickie Crocker DO [address] [place] [address] documented as of this encounter Procedures Procedure Name Priority Date/Time Associated Diagnosis Comments CT THORACIC OUTSIDE IMAGES 05/11/2024 12:13 PM EDT documented in this encounter Results * CT THORACIC OUTSIDE IMAGES (05/11/2024 12:13 PM EDT) Anatomical Region Laterality Modality Computed Tomogra phy 05/11/2024 12:1 3 PM EDT External Provider IMG CT PROCEDURES Final [...] documented as of this encounter Care Teams Safety Engineer Pressure Vessels Relationship Specialty Start Date End Date Kiana Arenas PA [address] [place] [address] PCP - General 12/18/20 Grey Wu MD [address] [facility] [address] [place] [phone] Consulting Physician Radiation Oncology 09/16/24 Mini Cordova MD [address] [place] [address] Consulting Physician Palliative Medicine 11/27/24 Alonzo Ritter MD [address] [facility] [address] [facility] [address] [place] [address] Consulting Physician Medical Oncology 11/27/24 documented as of this encounter
--- OUTSIDE RECORDS SUMMARY | 2025-03-28 08:34 | XMS_ITS | Clinical Summary ---
Author Organization [facility] Address [address] [place] [address] Care Team Providers Care Quality Assurance Assistant Name Role Phone Kiana Arenas Primary Care Provider [phone] Grey Wu MD Unavailable [phone] Mini Cordova MD Unavailable [phone] Alonzo Ritter MD Unavailable Allergies Active Allergy Reactions Criticality Noted Date Comments Cefaclor Hives,Itching,Othe r - please document in the comment field,Rash High 02/25/2016 Caused a yeast infection Morphine Other - please document in the comment field Low 10/14/2024 headaches Sulfa Drugs Hives,Rash,Other - please document in the comment field Medium 02/25/2016 Sulfamethoxazole Hives,Rash Medium 08/15/2022 Sulfamethoxazole-Trimethop rim Hives High 02/28/2024 Trimethoprim Rash Low 08/15/2022 Medications carvedilol (Coreg) 3.125 MG tablet Take 1 tablet (3.125 mg) by mouth in the morning and 1 tablet (3.125 mg) before bedtime. Active albuterol (2.5 MG/3ML) 0.083% nebulizer solution Active ProAir HFA 108 (90 Base) MCG/ACT inhaler Active alendronate (Fosamax) 70 MG tablet Take 1 tablet (70 mg) by mouth 1 (one) time per week. Active Calcium + Vitamin D3 600-10 MG-MCG tablet Take 1 tablet by mouth in the morning. Active cholecalcifero l (Vitamin D3) 25 MCG (1000 UT) tablet Take 1 tablet (1,000 Units) by mouth in the morning. Active cyanocobalamin (Vitamin B-12) 1000 MCG/ML injection 1 mL (1,000 mcg) every 30 (thirty) days. Active ergocalciferol 1.25 MG (25315 UT) capsule Take 1 capsule (50,000 Units) by mouth 1 (one) time per week. Active Slow Release Iron 45 MG tablet controlled-rel ease Take 1 tablet by mouth in the morning. Active B-D UF III MINI PEN NEEDLES 31G X 5 MM [facility] See administration instructions. Active levothyroxine (Synthroid, Levoxyl) 137 MCG tablet Take 1 tablet (137 mcg) by mouth in the morning. Active montelukast (Singulair) 10 MG tablet Active omeprazole (PriLOSEC) [address] capsule Active phenazopyridin e (Pyridium) 200 MG tablet Take 1 tablet (200 mg) by mouth as needed in the morning and 1 tablet (200 mg) as needed at noon and 1 tablet (200 mg) as needed in the evening. Active B-D 3CC LUER-EDUARDO SYR 25GX1 25G X 1 3 ML misc Active estradiol (Estrace) 1 MG tablet Take 1 tablet (1 mg) by mouth in the morning. Active latanoprost (Xalatan) 0.005 % ophthalmic solution Administer 1 drop into both eyes in the morning. Active rOPINIRole (Requip) 0.25 MG tablet Take 1 tablet (0.25 mg) by mouth nightly. Active Roflumilast 250 MCG tablet Take 1 tablet (250 mcg) by mouth 1 (one) time each day. 28 tablet 11 024 Active Additional Information Patient taking differently:1 tablet OralNightly, Reported on 01/20/2025 Aspirin Low Dose 81 MG EC tablet Take 1 tablet (81 mg) by mouth in the morning. Active Trelegy Ellipta 100-62.5-25 MCG/ACT aerosol powder Inhale 1 puff. Active isosorbide mononitrate ER (Imdur) 30 MG 24 hr tablet Take 1 tablet (30 mg) by mouth in the morning. Active naloxone (Narcan) 4 mg/0.1 mL nasal spray 1. Give 1 spray in nostril for no/slow breathing or cannot wake after opioid use 2. Call 911 3. Repeat in other nostril if symptoms continue 1 each Active potassium chloride ER (Micro-K) 10 MEQ ER capsule Take 1 capsule by mouth daily. Active tiZANidine (Zanaflex) 4 MG tablet Active furosemide (Lasix) 40 MG tablet Take 1 tablet by mouth daily. Active ibuprofen 800 MG tablet Take 1 tablet by mouth every 6 hours as needed for mild pain or moderate pain. Active promethazine (Phenergan) 12.5 MG tabletIndicati ons:Encounter for palliative care,Nausea Take 1 tablet by mouth every 6 hours as needed for nausea or vomiting. 60 tablet 2 Active buprenorphine (Butrans) 15 MCG/HRIndicati ons:Cancer related pain,Chronic pain syndrome,Encou nter for palliative care Place 1 patch on the skin 1 time per week over 168 hours. 4 patch 2 Active formoterol (Perforomist) 20 MCG/2ML nebulizer solutionIndica tions:COPD, severe (CMS/HCC) Take 2 mL by nebulization 2 times a day. 120 mL 11 Active revefenacin (Yupelri) 175 MCG/3ML nebulizer solutionIndica tions:COPD, severe (CMS/HCC) Take 3 mL by nebulization daily. 90 mL 11 Active hydrOXYzine pamoate (Vistaril) 25 MG capsule Take 1 capsule by mouth 3 times a day as needed for anxiety. Active amitriptyline (Elavil) 50 MG tablet Take 1 tablet by mouth nightly. 30 tablet Active predniSONE (Deltasone) 5 MG tabletIndicati ons:Seropositi ve rheumatoid arthritis of multiple sites (CMS/HCC) Take 2 tablets by mouth daily. 180 tablet Active gabapentin (Neurontin) 600 MG tablet Take 1 tablet by mouth 3 times a day. 180 tablet 1 Active oxyCODONE-acet aminophen (Percocet) 7.5-325 MG tabletIndicati ons:Chronic pain syndrome,Cance r related pain,Encounter for palliative care Take 1 tablet by mouth 5 times a day as needed for severe pain for up to 14 days. 70 tablet 025 2024 Active oxyCODONE-acet aminophen (Percocet) 7.5-325 MG tabletIndicati ons:Chronic pain syndrome,Cance r related pain,Encounter for palliative care Take 1 tablet by mouth 5 times a day as needed for severe pain for up to 14 days. 70 tablet 025 2024 Active revefenacin (Yupelri) 175 MCG/3ML nebulizer solutionIndica tions:COPD, severe (CMS/HCC) Take 3 mL (175 mcg) by nebulization 1 (one) time each day. 90 mL 11 024 2024 Discontinued(R eorder) formoterol (Perforomist) 20 MCG/2ML nebulizer solutionIndica tions:COPD, severe (CMS/HCC) Take 2 mL (20 mcg) by nebulization 2 (two) times a day. 120 mL 11 024 2024 Discontinued(R eorder) gabapentin (Neurontin) 600 MG tablet Take 1 tablet by mouth 3 times a day. 90 tablet 2 025 2024 Discontinued(R eorder) predniSONE (Deltasone) 5 MG tabletIndicati ons:Seropositi ve rheumatoid arthritis of multiple sites (CMS/HCC) Take 2 tablets by mouth daily. 60 tablet 1 025 2024 Discontinued(R eorder) amitriptyline (Elavil) 25 MG tabletIndicati ons:Chronic pain syndrome Take 1 tablet by mouth nightly. 30 tablet 2 025 2024 Discontinued(D ose adjustment) oxyCODONE-acet aminophen (Percocet) 7.5-325 MG tabletIndicati ons:Cancer related pain,Chronic pain syndrome,Encou nter for palliative care Take 1 tablet by mouth 5 times a day as needed for severe pain for up to 14 days. 70 tablet 025 2024 Discontinued(R eorder) oxyCODONE-acet aminophen (Percocet) 7.5-325 MG tabletIndicati ons:Cancer related pain,Chronic pain syndrome,Encou nter for palliative care Take 1 tablet by mouth 5 times a day as needed for severe pain for up to 14 days. 70 tablet 025 2024 Discontinued(R eorder) gabapentin (Neurontin) 600 MG tablet Take 1 tablet by mouth 3 times a day. 90 tablet 2 025 2024 Discontinued oxyCODONE-acet aminophen (Percocet) 7.5-325 MG tabletIndicati ons:Chronic pain syndrome,Cance r related pain,Encounter for palliative care Take 1 tablet by mouth 5 times a day as needed for severe pain for up to 14 days. 70 tablet 025 2024 Discontinued(R eorder) oxyCODONE-acet aminophen (Percocet) 7.5-325 MG tabletIndicati ons:Chronic pain syndrome,Cance r related pain,Encounter for palliative care Take 1 tablet by mouth 5 times a day as needed for severe pain for up to 14 days. 70 tablet 025 2024 Discontinued(R eorder) gabapentin (Neurontin) 600 MG tablet Take 1 tablet by mouth 3 times a day. 180 tablet 1 025 2024 Discontinued(R eorder) Active Problems Problem Noted Date Diagnosed Date [...] both eyes 11/22/2021 Dry eyes, bilateral 11/22/2021 Resolved Problems Problem Noted Date Diagnosed Date [...] 08/22/2024 08/22/2024 Overview (08/22/2024): Reviewed records from [facility]. Synovial fluid culture negative for growth. [...] disease) 06/22/2016 08/22/2024 Bullous emphysema 06/22/2016 08/22/2024 Encounters Date Type Department Care Team Description 03/24/2025 Orders Only [facility] [address] [address] Radiation Oncology, PhysicianMD 03/21/2025 Telephone [facility] [address] [address] Grey Wu MD 03/20/2025 Travel 03/18/2025 11:45 AM EDT - 03/18/2025 11:59 PM EDT Hospital Encounter [facility] [address] [phone] Discharge Disposition: Still a Patient 03/18/2025 Orders Only [facility] [address] [address] Radiation Oncology, PhysicianMD 03/18/2025 Travel 03/17/2025 3:25 AM EDT - 03/17/2025 11:59 PM EDT Hospital Encounter [facility] [address] [address] Discharge Disposition: Still a Patient 03/17/2025 Telephone [facility] Hematology/BMT and Cellular Therapy Program [address] [phone] Megan Chance MD 03/17/2025 Telephone [facility] Hematology/BMT and Cellular Therapy Program [address] [address] Megan Chance MD 03/17/2025 Travel 03/13/2025 Travel 03/12/2025 8:50 AM EDT - 03/12/2025 11:59 PM EDT Hospital Encounter [facility] [address] [address] Discharge Disposition: Still a Patient 03/12/2025 Orders Only [facility] Hematology/BMT and Cellular Therapy Program [address] [phone] Yamileth Lewis, PharmD 03/12/2025 Telephone Psych Oncology [address] [place] [address] Susanne Ortiz, BIENVENIDO 03/12/2025 Orders Only [facility] [address] [address] Radiation Oncology, Physician, 03/11/2025 Travel 03/11/2025 Refill [facility] Medicine [facility]ties [address], [address] [place] [address] Mickie Crocker DO Seropositive rheumatoid arthritis of multiple sites ([facility]/HCC) 03/10/2025 3:25 AM EDT - 03/10/2025 11:59 PM EDT Hospital Encounter [facility] [address] [address] Discharge Disposition: Still a Patient 03/10/2025 Telephone [facility] Medicine [facility]ties [address], [address] [place] [address] Mickie Crocker DO 03/10/2025 Telephone [facility] Hematology/BMT and Cellular Therapy Program [address] [place] [phone] Mini Cordova MD 03/10/2025 Refill [facility]ology/BMT and Cellular Therapy Program [address] [place] [phone] Mini Cordova MD 03/10/2025 Travel 03/08/2025 Travel 03/07/2025 9:29 AM EDT - 03/07/2025 11:59 PM EDT Hospital Encounter [facility] [address] [place] [phone] Discharge Disposition: Still a Patient 03/07/2025 Orders Only [facility] [address] [place] [phone] Radiation Oncology, Physician, 03/07/2025 Orders Only [facility] [address] [place] [phone] Radiation Oncology, Physician, 03/06/2025 Travel 03/05/2025 10:00 AM EDT Office Visit [facility] Hematology/BMT and Cellular Therapy Program [address] [place] [phone] Chantell Almaguer, STRAPPING MACHINE TENDER, DNP Squamous cell carcinoma of right lung (Primary Dx); Chronic pain syndrome; Cancer related pain; Encounter for palliative care 03/05/2025 9:30 AM EDT Clinical Support [facility] Hematology/BMT and Cellular Therapy Program [address] [place] [phone] 03/05/2025 9:15 AM EDT - 03/05/2025 11:59 PM EDT Hospital Encounter [facility] [address] [place] [phone] Discharge Disposition: Still a Patient 03/05/2025 Travel 03/05/2025 Orders Only [facility] [address] [place] [phone] Radiation Oncology, Physician, 03/04/2025 Refill [facility] Medicine [facility]ties [address] [place] [address] Dunia Menard APRN COPD, severe (CMS/HCC) 03/04/2025 Travel 03/03/2025 9:24 AM EDT - 03/03/2025 11:59 PM EDT Hospital Encounter [facility] [address] [address] Discharge Disposition: Still a Patient 03/03/2025 Telephone [facility] [address] [address] Grey Wu MD 03/03/2025 Travel 02/27/2025 Social Work Psych Oncology [address] [place] [address] Marisel Griffin 02/25/2025 Travel 02/24/2025 7:30 AM EDT - 02/24/2025 11:59 PM EDT Hospital Encounter [facility] [address] [address] Discharge Disposition: Still a Patient 02/17/2025 2:45 PM EDT - 02/17/2025 11:59 PM EDT Hospital Encounter [facility] [address] [address] Grey Wu MD Malignant neoplasm of lower lobe of right lung (CMS/HCC) (Primary Dx) Discharge Disposition: Still a Patient 02/17/2025 7:30 AM EDT - 02/17/2025 2:44 PM EDT Hospital Encounter [facility] [address] [address] Discharge Disposition: Still a Patient 02/17/2025 Travel 02/11/2025 Travel 02/05/2025 10:00 AM EDT Office Visit [facility] Hematology/BMT and Cellular Therapy Program 750 [facility], [address] [place] [address] Sanjana Fonseca MD Encounter for palliative care (Primary Dx); Cancer related pain; Chronic pain syndrome; Nausea 02/05/2025 Telephone [facility] Hematology/BMT and Cellular Therapy Program 750 [facility], [address] [place] [address] Sanjana Fonseca MD 02/04/2025 Travel 02/03/2025 Telephone [facility] Hematology/BMT and Cellular Therapy Program [address] [place] [address] Sanjana Fonseca MD Med Refill 01/30/2025 Travel 01/29/2025 Travel 01/28/2025 Orders Only [facility] Medicine [facility]ties [address] [place] [address] Mickie Crocker DO Seropositive rheumatoid arthritis of multiple sites ([facility]/HCC) (Primary Dx) 01/27/2025 Telephone [facility] [address] [place] [address] Kia Stoddard, PharmD Rituximab Infusions 01/22/2025 Telephone [facility] Medicine [facility]ties [address] [place] [address] Mickie Crocker DO 01/22/2025 Refill [facility] Medicine [facility]ties [address], [address] [place] [address] Karin Woodall MD Seropositive rheumatoid arthritis of multiple sites ([facility]) (Primary Dx) 01/22/2025 Refill [facility] Medicine [facility]ties [address] [place] [address] Karin Woodall MD 01/21/2025 2:15 PM EDT Office Visit [facility] Medicine [facility]ties [address], [address] [place] [address] Mickie Crocker DO High risk medication use (Primary Dx); On rituximab therapy; Need for pneumocystis prophylaxis; Osteoporosis with current pathological fracture, unspecified osteoporosis type, sequela 01/21/2025 Orders Only [facility]ties [address] [place] [address] Mickie Crocker DO Seropositive rheumatoid arthritis of multiple sites (CMS/HCC) (Primary Dx) 01/21/2025 Orders Only [facility] [address], [address] [place] [phone] Dunia Menard APRN ILD (interstitial lung disease) (CMS/HCC) (Primary Dx); COPD, severe (CMS/HCC); Squamous cell carcinoma of right lung 01/20/2025 2:20 PM EDT Office Visit [facility] Ne[facility] Respiratory 800 [facility], [address] [place] [phone] Alonzo Ritter MD Squamous cell carcinoma of right lung (Primary Dx); Cancer related pain 01/20/2025 11:00 AM EDT Office Visit [facility] Hematology/BMT and Cellular Therapy Program [address] [phone] Sanjana Fonseca MD Cancer related pain 01/20/2025 10:30 AM EDT Clinical Support [facility] Hematology/BMT and Cellular Therapy Program [address] [phone] 01/20/2025 Telephone [facility] Medicine [facility]ties [address], [address] [place] [phone] Almaz Connors 01/20/2025 Refill [facility] Hematology/BMT and Cellular Therapy Program [address] [place] [address] Megan Chance MD Cancer related pain 01/20/2025 Travel 01/19/2025 Travel 01/13/2025 1:47 PM EDT - 01/13/2025 11:59 PM EDT Hospital Encounter [facility] [address] [place] [phone] Squamous cell carcinoma of right lung Discharge Disposition: Home or Self Care 01/13/2025 1:00 PM EDT Clinical Support [facility]ck [facility] Res[facility] 800 [facility], [address] [place] [phone] Squamous cell carcinoma of right lung 01/13/2025 Travel 01/11/2025 Travel 01/10/2025 Telephone [facility]ck [facility] Res[facility] 800 [facility], [address] [place] [phone] Alonzo Ritter MD 01/06/2025 10:00 AM EDT Office Visit [facility] Hematology/BMT and Cellular Therapy Program 750 [facility], [facility] [place] [phone] Megan Chance MD Encounter for therapeutic drug monitoring (Primary Dx); Cancer related pain; Chronic pain syndrome 01/06/2025 9:30 AM EDT Clinical Support [facility] Hematology/BMT and Cellular Therapy Program 750 [facility], [address] [place] [phone] 01/06/2025 Social Work Psych Oncology [address] [place] [phone] Marisel Griffin 01/06/2025 Travel 01/05/2025 Travel 01/03/2025 Refill [facility] Medicine [facility] [address], [address] [place] [address] Mickie Crocker DO Seropositive rheumatoid arthritis of multiple sites (CMS/HCC) 01/02/2025 Telephone [facility]ology/BMT and Cellular Therapy Program 750 [facility], [address] [place] [phone] Mini Cordova MD from Last 3 Months Immunizations Immunization Administration Dates Next Due Influenza, Unspecified 06/21/2017 Influenza, injectable, quadrivalent, preservativ e free 06/14/2017 Influenza, seasonal, injectable, preservative fr ee 05/27/2024,09/11/2018 Pfizer-BioNTBuzzDash COVID-19 Vaccine (Purple Cap) 12 + 08/23/2021,08/02/2021 Pneumococcal 20-dakota Conj Vaccine 01/13/2023 Pneumococcal Polysaccharide PPV23 06/06/2019 Tdap 05/27/2024 Family History Medical History Relation Name Comments Diabetes Brother Stroke Brother Arthritis Mother Elise rodney COPD Mother Elise rodney Diabetes Mother Elise rodney Glaucoma Mother Elise rodney Heart disease Mother Elise rodney Heart failure Mother Elise stevens Miscarriages / Stillbirths Mother Elise stevens Rheumatologic disease Mother Elise stevens COPD Sister 1 3 sisters Cancer Sister 1 3 sisters Diabetes Sister 1 3 sisters Hypertension Sister 1 3 sisters Thyroid disease Sister 1 3 sisters COPD Sister 2 Relation Name Status Comments Brother Maternal Grandfather Maternal Grandmother Mother Elise stevens Other 1 Other 2 Other 3 Other 4 Paternal Grandfather Paternal Grandmother Sister 1 3 sisters Sister 2 Alive Social History Tobacco Use Types Packs/Day Years Used Date Smoking Tobacco: Every Day Cigarettes 0.3 41.2 Started: 01/17/1984 Passive Smoke Exposure: Current Smokeless Tobacco: Never Tobacco Cessation:Ready to Q uit: Not Asked; Counseling Given: Not Answered Comments:Smoking 2-3 cigarettes daily Alcohol Use Standard Drinks/Week Comments Never [...] Mass Index 20.05 03/05/2025 9:58 AM EDT Plan of Treatment Upcoming Encounters Date Type Department Care Team (Late st Contact Info) Description 04/09/2025 9:00 AM EDT Clinical Support [facility] Hematology/BMT and Cellular Therapy Program 750 [facility], [address] [place] [phone] 04/09/2025 9:30 AM EDT Office Visit [facility] Hematology/BMT and Cellular Therapy Program 750 [facility], [address] [place] [phone] Mini Cordova MD [address] [place] [address] 04/21/2025 10:30 AM EDT Appointment [facility] [address] [place] [phone] Anusha Martines APRN, DNP 800 [facility] [address] [place] [address] 04/23/2025 11:10 AM EDT Office Visit [facility] Medicine [facility]ties [address], [address] [place] [address] Dunia Menard APRN [address] [place] [address] 05/26/2025 9:00 AM EDT Office Visit [facility] [place] [facility] [address] [facility], [address] [place] [address] June Jensen MD [address] [facility] [address] [place] [address] 06/02/2025 3:45 PM EDT Office Visit [facility] Medicine [facility]ties [address], [address] [place] [address] Mickie Crocker DO [address] [place] [phone] Health Maintenance Due Date Last Done Comments [facility]-Bone Density Scan 1969 [facility]-/Child/Adol SDOH Screenings 1969 [facility]- SDOH Screenings 1987 [facility]-Adult SDOH Screenings 1987 [facility]-Hepatitis B Vaccines (1 of 3 - 19+ 3-dose series) 1988 [facility]-Zoster Vaccines (1 of 2) 1988 CT Colonography 2014 Colonoscopy 2014 FIT-DNA 2014 FIT 2014 FOBT 2014 Sigmoidoscopy 2014 [facility]-Colorectal Cancer Screening 2014 [facility]-Breast Cancer Screening 2019 [id number] Vaccine (3 - Pfizer risk series) 09/20/2021 08/23/2021, 08/02/2021 [facility]-Influenza Vaccine (#1) 04/07/202505/27, 09/11/2018, 06/21/2017, Additional history exists [facility]-Depression Screening 03/05/2026 03/05/2025, 02/06 [facility]-DTaP,Tdap,and Td Vaccines (2 - Td or Tdap) 05/27/2034 05/27/2024 [facility]-Pneumococcal Vaccine: 50+ Years Completed 01/13/2023, 06/06/2019 [facility]-HIV Screening Completed 05/23/2023 [facility]-Hepatitis C Screening Completed 06/28/2024, [facility]-Lung Cancer Screening Discontinued 2024, 12/18/2024, 08/30/2024, Additional history exists HPV Vaccines Aged Out No longer eligi ble based on patient's age to complete this topic [facility]-HIB Vaccines Aged Out No longer e ligible based on patient's age to complete this topic [facility]-Hepatitis A Vaccines Aged Out No longer eligible based on patient's age to complete this topic [facility]-IPV Vaccines Aged Out No longer e ligible based on patient's age to complete this topic [facility]-Rotavirus Vaccines Aged Out No lo nger eligible based on patient's age to complete this topic Procedures Procedure Name Priority Date/Time Associated Diagnosis Comments RAD ONC ARIA COURSE SUMMARY Routine 03/24/2025 5:23 PM EDT RAD ONC ARIA SESSION SUMMARY Routine 03/18/2025 12:18 PM EDT RAD ONC ARIA SESSION SUMMARY Routine 03/12/2025 9:24 AM EDT RAD ONC ARIA COURSE SUMMARY Routine 03/07/2025 1:31 PM EDT RAD ONC ARIA SESSION SUMMARY Routine 03/07/2025 9:51 AM EDT RAD ONC ARIA SESSION SUMMARY Routine 03/05/2025 9:[address] CHEST W IV CONTRAST Routine 2:38 PM EDT Squamous cell carcinoma of right lung CT ABDOMEN PELVIS W IV CONTRAST Routine 01/13/2025 2:38 PM EDT Squamous cell carcinoma of right lung COMPREHENSIVE METABOLIC PANEL, PLASMA Routine 01/13/2025 1:17 PM EDT Squamous cell carcinoma of right lung CBC WITH AUTO DIFFERENTIAL Routine 01/13/2025 1:17 PM EDT Squamous cell carcinoma of right lung OXYCODONE CONFIRMATION,URINE Routine 01/06/2025 9:52 AM EDT Encounter for therapeutic drug monitoring DRUG ABUSE SCREEN, URINE Routine 01/06/2025 9:52 AM EDT Encounter for therapeutic drug monitoring ACUTE HEPATITIS PANEL Routine 06/28/2024 11:53 AM EST Seropositive rheumatoid arthritis (CMS/HCC) HIV 1/2 ANTIBODY/ANTIGEN SCREEN WITH REFLEX TO HIV I/II DIFFERENTIATION Routine 05/23/2023 2:39 PM EDT Seropositive rheumatoid arthritis of multiple sites (CMS/HCC) from Last 3 Months or Most Recently Relevant to Health Maintenance Results * Rad Onc Aria Course Summary [...] 03/24/2025 5:23 PM EDT Physician Radiation Oncology MD RADIATION ONCOLO GY ORDERABLES Final Result ARIA RADIATION ONCOLOGY * Rad Onc Aria Session Summary (03/18/2025 [...] GY ORDERABLES Final Result ARIA RADIATION ONCOLOGY * Rad Onc Aria Session Summary (03/12/2025 [...] GY ORDERABLES Final Result ARIA RADIATION ONCOLOGY * Rad Onc Aria Course Summary (03/07/2025 [...] RADIATION ONCOLOGY Plan Prescribed Dose Per Fraction [id number] Gy ARIA RADIATION ONCOLOGY Plan Total Prescribed Dose 750.5 CGy ARIA RADIATION ONCOLOGY Plan Primary Reference Point Verification ARIA RADIATION ONCOLOGY Plan ID RUL/RLL SBRT ARIA RADIATION ONCOLOGY Plan Name RUL/RLL SBRT [facility] RADIATION ONCOLOGY Plan Fractions Treated to Date 0 [facility] RADIATION ONCOLOGY Plan Total Fractions Prescribed 1 ARIA RADIATION ONCOLOGY Plan Prescribed Dose Per Fraction [id number] Gy [facility]A RADIATION ONCOLOGY Plan Total Prescribed Dose 655.9 CGy ARIA RADIATION ONCOLOGY Plan Primary Reference Point Verification1 [facility] 03/07/2025 1:31 PM EDT Physician Radiation Oncology MD RADIATION ONCOLO GY ORDERABLES Final Result [facility] * Rad Onc Aria Session Summary (03/07/2025 [...] Oncology RADIATION ONCOLO GY ORDERABLES Final Result Performing Organization Address City/State/[facility] Co de Phone Number [facility] * Rad Onc Aria Session Summary (03/05/2025 [...] 9:42 AM EDT Physician Radiation Oncology RADIATION ONCCHERI GY ORDERABLES Final Result Performing Organization Address [facility] Co de Phone Number [facility] * CT Abdomen Pelvis w IV Contrast (01/13/2025 2:38 PM EDT) Anatomical Region Laterality Modality Abdomen, Pelvis Computed Tomogra phy Impressions 01/13/2025 3:02 PM EDT 1. Stable nonspecific right upper lobe nodule and stable malignant right lower lobe nodule, compared to recent prior noncontrast chest CT. 2. No evidence of metastatic disease in the abdomen or pelvis. CRITICAL RESULT: No. COMMUNICATION: Per this written report. Drafted by Cleveland Tam MD on 01/13/2025 2:52 PM Final report signed by Cleveland Tam MD on 01/13/2025 3:02 PM Narrative 01/13/2025 3:02 PM EDT CLINICAL INDICATION: cancer evaluation; squamous cell carcinoma right lung TECHNIQUE: Multiple CT helical images were obtained from thoracic inlet through pubic symphysis with administration of IV contrast. 100 mL of Omnipaque-300 were administered intravenously. Total DLP (Dose-Length Product): 255.16 mGy.cm (accession [id number]), 255.16 mGy.cm (accession [id number]). Please note: The reported value represents the total of one or more individual components during the CT acquisition on this date and at this time, and as such, the same value may appear in more than one CT report depending on the interpreting/reporting physicians. COMPARISON: Low-dose chest CT December 18, 2024, PET/CT August 01, 2024 FINDINGS: Mediastinum and Pleura: Small and borderline AP window lymph nodes, stable. No significant mediastinal or hilar adenopathy. No pleural or pericardial effusion. Lungs: Severe emphysematous changes. Elongated nodule in the right upper lobe adjacent to the major fissure, stable, 16 mm versus 16. Spiculated nodule in the posterior right lower lobe is stable within measurement error at 26 mm versus 28. This nodule has extensive pleural contact, but no clear chest wall invasion. Abdomen and Pelvis: No suspicious solid abdominal organ lesions. No abdominal or pelvic adenopathy. No GI tract abnormalities except for minimal sigmoid diverticular disease. Prior hysterectomy. No intraperitoneal free fluid. Musculoskeletal: Stable appearance of wedge compression fracture of the T8 vertebral body. No suspicious lytic or sclerotic bone lesions. Procedure Note Cleveland Tam MD - 01/13/2025 CLINICAL INDICATION: cancer evaluation; squamous cell carcinoma right lung TECHNIQUE: Multiple CT helical images were obtained from thoracic inlet through pubicsymphysis with administration of IV contrast. 100 mL of Omnipaque-300were administered intravenously. Total DLP (Dose-Length Product): 255.16 mGy.cm (accession [id number]),255.16 mGy.cm (accession [id number]). Please note: The reported valuerepresents the total of one or more individual components during the CTacquisition on this date and at this time, and as such, the same value mayappear in more than one CT report depending on the interpreting/reportingphysicians. COMPARISON: Low-dose chest CT December 18, 2024, PET/CT August 01, 2024 FINDINGS: Mediastinum and Pleura: Small and borderline AP window lymph nodes,stable. No significant mediastinal or hilar adenopathy. No pleural orpericardial effusion. Lungs: Severe emphysematous changes. Elongated nodule in the right upperlobe adjacent to the major fissure, stable, 16 mm versus 16. Spiculatednodule in the posterior right lower lobe is stable within measurementerror at 26 mm versus 28. This nodule has extensive pleural contact, butno clear chest wall invasion. Abdomen and Pelvis: No suspicious solid abdominal organ lesions. Noabdominal or pelvic adenopathy. No GI tract abnormalities except forminimal sigmoid diverticular disease. Prior hysterectomy. Nointraperitoneal free fluid. Musculoskeletal: Stable appearance of wedge compression fracture of the H5pqoshpjkh body. No suspicious lytic or sclerotic bone lesions. IMPRESSION: 1. Stable nonspecific right upper lobe nodule and stable malignant rightlower lobe nodule, compared to recent prior noncontrast chest CT. 2. No evidence of metastatic disease in the abdomen or pelvis. CRITICAL RESULT: No. COMMUNICATION: Per this written report. Drafted by Cleveland Tam MD on 01/13/2025 2:52 PM Final report signed by Cleveland Tam MD on 01/13/2025 3:02 PM Alonzo Ritter MD IMG CT PROCEDURES Final Result * CT Chest w IV Contrast (01/13/2025 2:38 PM EDT) Anatomical Region Laterality Modality Chest Computed Tomogra phy Impressions 01/13/2025 3:02 PM EDT 1. Stable nonspecific right upper lobe nodule and stable malignant right lower lobe nodule, compared to recent prior noncontrast chest CT. 2. No evidence of metastatic disease in the abdomen or pelvis. CRITICAL RESULT: No. COMMUNICATION: Per this written report. Drafted by Cleveland Tam MD on 01/13/2025 2:52 PM Final report signed by Cleveland Tam MD on 01/13/2025 3:02 PM Narrative 01/13/2025 3:02 PM EDT CLINICAL INDICATION: cancer evaluation; squamous cell carcinoma right lung TECHNIQUE: Multiple CT helical images were obtained from thoracic inlet through pubic symphysis with administration of IV contrast. 100 mL of Omnipaque-300 were administered intravenously. Total DLP (Dose-Length Product): 255.16 mGy.cm (accession [id number]), 255.16 mGy.cm (accession [id number]). Please note: The reported value represents the total of one or more individual components during the CT acquisition on this date and at this time, and as such, the same value may appear in more than one CT report depending on the interpreting/reporting physicians. COMPARISON: Low-dose chest CT December 18, 2024, PET/CT August 01, 2024 FINDINGS: Mediastinum and Pleura: Small and borderline AP window lymph nodes, stable. No significant mediastinal or hilar adenopathy. No pleural or pericardial effusion. Lungs: Severe emphysematous changes. Elongated nodule in the right upper lobe adjacent to the major fissure, stable, 16 mm versus 16. Spiculated nodule in the posterior right lower lobe is stable within measurement error at 26 mm versus 28. This nodule has extensive pleural contact, but no clear chest wall invasion. Abdomen and Pelvis: No suspicious solid abdominal organ lesions. No abdominal or pelvic adenopathy. No GI tract abnormalities except for minimal sigmoid diverticular disease. Prior hysterectomy. No intraperitoneal free fluid. Musculoskeletal: Stable appearance of wedge compression fracture of the T8 vertebral body. No suspicious lytic or sclerotic bone lesions. Procedure Note Cleveland Tam MD - 01/13/2025 CLINICAL INDICATION: cancer evaluation; squamous cell carcinoma right lung TECHNIQUE: Multiple CT helical images were obtained from thoracic inlet through pubicsymphysis with administration of IV contrast. 100 mL of Omnipaque-300were administered intravenously. Total DLP (Dose-Length Product): 255.16 mGy.cm (accession [id number]),255.16 mGy.cm (accession [id number]). Please note: The reported valuerepresents the total of one or more individual components during the CTacquisition on this date and at this time, and as such, the same value mayappear in more than one CT report depending on the interpreting/reportingphysicians. COMPARISON: Low-dose chest CT December 18, 2024, PET/CT August 01, 2024 FINDINGS: Mediastinum and Pleura: Small and borderline AP window lymph nodes,stable. No significant mediastinal or hilar adenopathy. No pleural orpericardial effusion. Lungs: Severe emphysematous changes. Elongated nodule in the right upperlobe adjacent to the major fissure, stable, 16 mm versus 16. Spiculatednodule in the posterior right lower lobe is stable within measurementerror at 26 mm versus 28. This nodule has extensive pleural contact, butno clear chest wall invasion. Abdomen and Pelvis: No suspicious solid abdominal organ lesions. Noabdominal or pelvic adenopathy. No GI tract abnormalities except forminimal sigmoid diverticular disease. Prior hysterectomy. Nointraperitoneal free fluid. Musculoskeletal: Stable appearance of wedge compression fracture of the V8jrsknnjju body. No suspicious lytic or sclerotic bone lesions. IMPRESSION: 1. Stable nonspecific right upper lobe nodule and stable malignant rightlower lobe nodule, compared to recent prior noncontrast chest CT. 2. No evidence of metastatic disease in the abdomen or pelvis. CRITICAL RESULT: No. COMMUNICATION: Per this written report. Drafted by Cleveland Tam MD on 01/13/2025 2:52 PM Final report signed by Cleveland Tam MD on 01/13/2025 3:02 PM Alonzo Ritter MD [facility] CT PROCEDURES Final Result * (ABNORMAL) CBC and Differential (01/13/2025 1:17 PM EDT) WBC Count 7.02 3.70 - 10.30 10*3/uL LAB HEMATOLOGY METHOD 01/13/2025 1:50 PM EDT [facility] RBC Count 3.66(L) 3.90 - 5.20 10*6/uL LAB HEMATOLOGY METHOD 01/13/2025 1:50 PM EDT [facility] HGB 12.0 11.2 - 15.7 g/dL LAB HEMATOLOGY METHOD 01/13/2025 1:50 PM EDT [facility] HCT 37.2 34.0 - 45.0 % LAB HEMATOLOGY METHOD 01/13/2025 1:50 PM EDT [facility] Platelet Count 368 155 - 369 10*3/uL LAB HEMATOLOGY METHOD 01/13/2025 1:50 PM EDT [facility] MCV 102(H) 79 - 98 fL LAB HEMATOLOGY METHOD 01/13/2025 1:50 PM EDT [facility] MCH 32.8(H) 26.0 - 32.0 pg LAB HEMATOLOGY METHOD 01/13/2025 1:50 PM EDT [facility] MCHC 32.3 30.7 - 35.5 g/dL LAB HEMATOLOGY METHOD 01/13/2025 1:50 PM EDT [facility] RDW 13.2 11.5 - 14.5 % LAB HEMATOLOGY METHOD 01/13/2025 1:50 PM EDT [facility] MPV 10.1 8.8 - 12.5 fL LAB HEMATOLOGY METHOD 01/13/2025 1:50 PM EDT [facility] nRBC 0.0 <=0.0 per 100 WBCs LAB HEMATOLOGY METHOD 01/13/2025 1:50 PM EDT [facility] Differential Type Automated LAB HEMATOLOGY METHOD 01/13/2025 1:50 PM EDT [facility] Neutrophils % 62 % LAB HEMATOLOGY METHOD 01/13/2025 1:50 PM EDT [facility] Lymphocytes % 22 % LAB HEMATOLOGY METHOD 01/13/2025 1:50 PM EDT [facility] Monocytes % 11 % LAB HEMATOLOGY METHOD 01/13/2025 1:50 PM EDT [facility] Eosinophils % 4 % LAB HEMATOLOGY METHOD 01/13/2025 1:50 PM EDT [facility] Basophils % 1 % LAB HEMATOLOGY METHOD 01/13/2025 1:50 PM EDT [facility] Immature Granulocytes % 0 % LAB HEMATOLOGY METHOD 01/13/2025 1:50 PM EDT [facility] Neutrophils Absolute 4.39 1.60 - 6.10 10*3/uL LAB HEMATOLOGY METHOD 01/13/2025 1:50 PM EDT [facility] Lymphocytes Absolute 1.54 1.20 - 3.90 10*3/uL LAB HEMATOLOGY METHOD 01/13/2025 1:50 PM EDT [facility] Monocytes Absolute 0.74 0.30 - 0.90 10*3/uL LAB HEMATOLOGY METHOD 01/13/2025 1:50 PM EDT [facility] Eosinophils Absolute 0.29 0.00 - 0.50 10*3/uL LAB HEMATOLOGY METHOD 01/13/2025 1:50 PM EDT [facility] Basophils Absolute 0.04 0.00 - 0.10 10*3/uL LAB HEMATOLOGY METHOD 01/13/2025 1:50 PM EDT [facility] Immature Granulocytes Absolute 0.02 0.00 - 0.06 10*3/uL LAB HEMATOLOGY METHOD 01/13/2025 1:50 PM EDT [facility] Blood Venous blood specimen / Unknown Venipuncture / Unknown 01/13/2025 1:17 PM EDT 01/13/2025 1:38 PM EDT Narrative [facility] - 01/13/2025 1:50 PM EDT Therapeutic decision making should be based on absolute values, rather than percentages. us Alonzo Ritter MD LAB BLOOD ORDERABLES Final Resul t [facility] [address] [place] [address] * (ABNORMAL) Comprehensive Metabolic Panel, Plasma (01/13/2025 1:17 PM EDT) Glucose, Plasma 87 74 - 99 mg/dL 01/13/2025 2:22 PM EDT [facility] BUN, Plasma 8 7 - 21 mg/dL 01/13/2025 2:22 PM EDT [facility] Creatinine, Plasma 0.53(L) 0.60 - 1.10 mg/dL 01/13/2025 2:22 PM EDT [facility] BUN/Creatinine Ratio 15 01/13/2025 2:22 PM EDT [facility] Sodium, Plasma 144 136 - 145 mmol/L 01/13/2025 2:22 PM EDT [facility] Potassium, Plasma 4.1 3.6 - 4.9 mmol/L 01/13/2025 2:22 PM EDT [facility] Chloride, Plasma 103 97 - 107 mmol/L 01/13/2025 2:22 PM EDT [facility] CO2, Plasma 32(H) 22 - 29 mmol/L 01/13/2025 2:22 PM EDT [facility] Anion Gap 9 6 - 16 mmol/L 01/13/2025 2:22 PM EDT [facility] Total Calcium, Plasma 9.1 8.9 - 10.2 mg/dL 01/13/2025 2:22 PM EDT [facility] Total Protein 6.8 6.3 - 7.9 g/dL 01/13/2025 2:22 PM EDT [facility] Albumin, Plasma 3.9 3.5 - 5.2 g/dL 01/13/2025 2:22 PM EDT [facility] AST, Plasma 22 10 - 35 U/L 01/13/2025 2:22 PM EDT [facility] ALT, Plasma 12 10 - 35 U/L 01/13/2025 2:22 PM EDT [facility] Alkaline Phosphatase, Plasma 137(H) 35 - 104 U/L 01/13/2025 2:22 PM EDT [facility] Total Bilirubin, Plasma <0.2(L) 0.2 - 1.1 mg/dL 01/13/2025 2:22 PM EDT [facility] eGFRcr 109.4 mL/min/1.7 3m*2 01/13/2025 2:22 PM EDT [facility] Comment:Reported eGFRcr in m L/min/1.73m2 is based the CKD-EPI 2020 equation that does not use a race coefficient. Blood Venous blood specimen / Unknown Venipuncture / Unknown 01/13/2025 1:17 PM EDT 01/13/2025 1:50 PM EDT us Alonzo Ritter MD LAB BLOOD ORDERABLES Final Resul t [facility] [address] [place] [address] * (ABNORMAL) OXYCODONE CONFIRMATION,URINE (01/06/2025 9:52 AM EDT) Oxycodone 729(H) <50 ng/mL 01/08/2025 3:45 PM EDT [facility] Oxymorphone <50 <50 ng/mL 01/08/2025 3:45 PM EDT [facility] Oxymorphone Glucuronide >1,000(H) <50 ng/mL 01/08/2025 3:45 PM EDT [facility] Urine Urine specimen obtained by clean catch procedure / Unknown Non-blood Collection / Unknown 01/06/2025 9:52 AM EDT 01/06/2025 10:04 AM EDT Narrative [facility] - 01/08/2025 3:45 PM EDT Test performed by LC-MS/MS at the [facility]. This test was developed and its performance characteristics determined by [facility]. It has not been cleared or approved by the FDA. The laboratory is regulated under CLIA as qualified to perform high-complexity testing. This test is used for clinical purposes. Megan Chance MD LAB URINE ORDERABLES Final Result [facility] [address] [place] [address] * Drug Abuse Screen, Urine (01/06/2025 9:52 AM EDT) Amphetamine Screen Urine Negative Cutoff: 500 ng/mL 01/06/2025 10:38 AM EDT [facility] Benzodiazepines Screen Urine Negative Cutoff: 200 ng/mL 01/06/2025 10:38 AM EDT [facility] Cannabinoid Screen Urine Negative Cutoff: 50 ng/mL 01/06/2025 10:38 AM EDT [facility] Cocaine Screen Urine Negative Cutoff: 300 ng/mL 01/06/2025 10:38 AM EDT [facility] Barbiturate Screen Urine Negative Cutoff: 200 ng/mL 01/06/2025 10:38 AM EDT [facility] Opiate Screen Urine Negative Cutoff: 300 ng/mL 01/06/2025 10:38 AM EDT [facility] Methadone Screen Urine Negative Cutoff: 300 ng/mL 01/06/2025 10:38 AM EDT [facility] Buprenorphine Screen Urine Negative Cutoff: 10 ng/mL 01/06/2025 10:38 AM EDT [facility] Fentanyl Screen Urine Negative Cutoff: 1 ng/mL 01/06/2025 10:38 AM EDT [facility] Oxycodone Screen Urine Presumptive positive. Confirmation by LC-MS/MS to follow. Cutoff: 100 ng/mL 01/06/2025 10:38 AM EDT [facility] Urine Urine specimen obtained by clean catch procedure / Unknown Non-blood Collection / Unknown 01/06/2025 9:52 AM EDT 01/06/2025 10:04 AM EDT Megan Chance MD LAB URINE ORDERABLES Final Result Performing Organization Address City/[facility]/ZIP Co de Phone Number [facility] [address] [place] [address] * Hepatitis panel, acute (06/28/2024 11:53 AM EST) Hepatitis B Surf Antigen Negative Negative 06/28/2024 2:54 PM EST [facility] Hepatitis C Antibody Negative Negative 06/28/2024 2:54 PM EST [facility] Hepatitis A Antibody IgM Negative Negative 06/28/2024 2:54 PM EST [facility] Hepatitis B Core Antibody IgM Negative Negative 06/28/2024 2:54 PM EST [facility] Blood Venous blood specimen / Unknown Venipuncture / Unknown 06/28/2024 11:53 AM EST 06/28/2024 11:53 AM EST Mickie Crocker DO LAB BLOOD ORDERABLES Final Resu lt Performing Organization Address [facility] Co de Phone Number [facility] [address] [place] [address] * HIV 1 & 2 Antibody/Antigen Screen (05/23/2023 2:39 PM EDT) HIV 1 & 2 Antibody/Antigen Screen Non Reactive Non Reactive 05/23/2023 5:22 PM EDT [facility] Comment:Screening for HIV 1 & 2 antibodies, and P24 antigen is NONREACTIVE. No confirmatory testing is required. Blood Venous blood specimen / Unknown Venipuncture / Unknown 05/23/2023 2:39 PM EDT 05/23/2023 2:40 PM EDT us Ashlyn R Sameera STRAPPING MACHINE TENDER LAB BLOOD ORDERABLES Final Result [facility] [address] [place] [address] from Last 3 Months or Most Recently Relevant to Health Maintenance [place] [address] MEDICAID Advance Directives * Full Code (Latest Code Status on File) Date Activated Date Inactivated Comments 10/25/2024 9:56 AM 10/26/2024 2:33 AM * Full Code Date Activated Date Inactivated Comments 08/30/2024 10:37 AM 08/31/2024 2:38 AM Question Answer Comments Patient has decision-making capacity? Yes Care Teams Quality Assurance Assistant Relationship Specialty Start Date End Date Kiana Arenas PA [address] [place] [address] PCP - General 12/18/20 Grey Wu MD [address] [facility] [address] [place] [address] Consulting Physician Radiation Oncology 09/16/24 Mini Cordova MD [address] [facility] [address] [place] [address] Consulting Physician Palliative Medicine 11/27/24 Alonzo Ritter MD [address] [facility] [address] [facility] [address] [place] [address] Consulting Physician Medical Oncology 11/27/24
--- OUTSIDE RECORDS SUMMARY | 2025-03-28 08:34 | XMS_ITS | Encounter Summary ---
Author Organization Healthcare Address [address] [place] [address] Care Team Providers Care Survey Research Analyst Name Role Phone Kiana Arenas Primary Care Provider [phone] Grey Wu MD Unavailable [phone] Mini Cordova MD Unavailable [phone] Alonzo Ritter MD Unavailable Encounter Details Date Type Department Care Team (Late Contact Info) Description 12/06/2016 Orders Only External Location [address] [place] [id number] Provider, External Social History Tobacco Use Types Packs/Day Years Used Date Smoking Tobacco: Never Assessed Comments Unknown Sex and Gender Information Value [...] [facility] [address] [place] [phone] 04/09/2025 9:30 AM EDT Office Visit [facility] [address] [place] [address] Mini Cordova MD [address] [place] [phone] 04/21/2025 10:30 AM EDT Appointment [facility] [address] [place] [address] Anusha Martines, AIR TECHNICIAN, DNP [address] [place] [phone] 04/23/2025 11:10 AM EDT Office Visit [facility] Medicine Specialties [address] [place] [address] Dunia Menard, AIR TECHNICIAN [address] [place] [address] 05/26/2025 9:00 AM EDT Office Visit [facility] [address], [address] [place] [address] June Jensen MD [address] [place] [phone] 06/02/2025 3:45 PM EDT Office Visit [facility] Medicine Specialties [address] [place] [address] Mickie Crocker DO [address] [place] [address] documented as of this encounter Procedures Procedure Name Priority Date/Time Associated Diagnosis Comments CT NEURO OUTSIDE IMAGES 12/06/2016 10:28 PM EDT documented in this encounter Results * CT NEURO OUTSIDE IMAGES (12/06/2016 10:28 PM EDT) Anatomical Region Laterality Modality Computed Tomogra phy 12/06/2016 10:2 8 PM EDT us External Provider IMG CT PROCEDURES Final Result documented in this encounter Visit Diagnoses Not on filedocumented in this encounter Care Teams Survey Research Analyst Relationship Specialty Start Date End Date Kiana Arenas PA [address] [place] [address] PCP - General 12/18/20 Grey Wu MD [address] [facility] [address] [place] [address] Consulting Physician Radiation Oncology 09/16/24 Mini Cordova MD [address] [facility] [address] [place] [address] Consulting Physician Palliative Medicine 11/27/24 Alonzo Ritter MD [address] [facility] [address] [place] [address] Consulting Physician Medical Oncology 11/27/24 documented as of this encounter
--- OUTSIDE RECORDS SUMMARY | 2025-03-28 08:34 | XMS_ITS | Encounter Summary ---
Author Organization Healthcare Address [address] [place] [address] Care Team Providers Care Vp Project Name Role Phone Kiana Arenas Primary Care Provider [phone] Grey Wu MD Unavailable [phone] Mini Cordova MD Unavailable [phone] Alonzo Ritter MD Unavailable Encounter Details Date Type Department Care Team (Late Contact Info) Description 05/11/2024 Orders Only External Location [address] [place] [address] Provider, External Social History Tobacco Use Types [...] CC Hematology/BMT and Cellular Therapy Program 750 [facility], [address] [place] [place] [address] 04/09/2025 9:30 AM EDT Office Visit [facility] Hematology/BMT and Cellular Therapy Program [address] [place] [address] Mini Cordova MD [address] [place] [address] 04/21/2025 10:30 AM EDT Appointment [facility] Radiation [address] [place] [address] Anusha Martines, MANAGER FOOD, DNP [address] [place] [address] 04/23/2025 11:10 AM EDT Office Visit [facility] Medicine Specialties [address] 2[address] [place] [address] Dunia Menard, MANAGER FOOD [address] [place] [address] 05/26/2025 9:00 AM EDT Office Visit [facility] Bone & Mineral Metabolism [address] [facility], [address] [place] [address] June Jensen MD [address] [facility] 3[address] [place] [address] 06/02/2025 3:45 PM EDT Office Visit [facility] Specialties [address], 2[address] [place] [address] Mickie Crocker DO [address] [place] [address] documented as of this encounter Procedures Procedure Name Priority Date/Time Associated Diagnosis Comments CT NEURO OUTSIDE IMAGES 05/11/2024 11:55 AM EDT documented in this encounter Results * CT NEURO OUTSIDE IMAGES (05/11/2024 11:55 AM EDT) Anatomical Region Laterality Modality Computed Tomogra phy 05/11/2024 11:5 5 AM EDT External Provider IMG CT PROCEDURES [...] documented as of this encounter Care Teams Vp Project Relationship Specialty Start Date End Date Kiana Arenas PA [address] [place] [address] PCP - General 12/18/20 Grey Wu MD 800 [facility] [address] [place] [address] Consulting Physician Radiation Oncology 09/16/24 Mini Cordova MD [address] [place] [address] Consulting Physician Palliative Medicine 11/27/24 Alonzo Ritter MD 800 [facility] [address] [place] [address] Consulting Physician Medical Oncology 11/27/24 documented as of this encounter
--- OUTSIDE RECORDS SUMMARY | 2025-03-28 08:34 | XMS_ITS | Encounter Summary ---
Author Organization Healthcare Address [address] [place] [address] Care Team Providers Care Float Remover Name Role Phone Dagoberto Kiana RODRIGUEZ Primary Care Provider [phone] Grey Wu MD Unavailable [phone] Mini Cordova MD Unavailable [phone] Alonzo Ritter MD Unavailable Encounter Details Date Type Department Care Team (Late Contact Info) Description 10/28/2020 Orders Only External Location [address] [place] [address] Mandeep Rivera MD [address] [place] [address] Social History Tobacco Use Types Packs/Day Years [...] CC Hematology/BMT and Cellular Therapy Program [address] [place] [address] 04/09/2025 9:30 AM EDT Office Visit [facility] Hematology/BMT and Cellular Therapy Program [address] [place] [address] Mini Cordova MD [address] [place] [address] 04/21/2025 10:30 AM EDT Appointment [facility] Radiation [id number] [place] [address] Anusha Martines R, CAR TRIMMER, DNP [address] [place] [address] 04/23/2025 11:10 AM EDT Office Visit [facility] Medicine Specialties [address], [address] [place] [address] Dunia Menard, CAR TRIMMER [address] [place] [address] 05/26/2025 9:00 AM EDT Office Visit [facility] Bone & Mineral Metabolism [address], [address] [place] [address] June Jensen MD [address] 3[address] [place] [address] 06/02/2025 3:45 PM EDT Office Visit [facility] Medicine Specialties [address], [address] [place] [address] Mickie Crocker DO [address] [place] [address] documented as of this encounter Procedures Procedure Name Priority Date/Time Associated Diagnosis Comments XR OUTSIDE IMAGES 10/28/2020 9:56 AM EDT documented in this encounter Results * XR OUTSIDE IMAGES (10/28/2020 9:56 AM EDT) Anatomical Region Laterality Modality Radiographic Shnatal ging 10/28/2020 9:56 AM EDT us Mandeep Rivera MD IMG XR PROCEDURES Final Result documented in this encounter Visit Diagnoses Not on filedocumented in this encounter Care Teams Float Remover Relationship Specialty Start Date End Date Kiana Arenas PA [address] [place] [address] PCP - General 12/18/20 Grey Wu MD 800 [facility] [address] [place] [address] Consulting Physician Radiation Oncology 09/16/24 Mini Cordova MD [address] [facility] [address] [place] [address] Consulting Physician Palliative Medicine 11/27/24 Alonzo Ritter MD [address] [facility] Maria Del Rosario [address] [place] [address] Consulting Physician Medical Oncology 11/27/24 documented as of this encounter
--- OUTSIDE RECORDS SUMMARY | 2025-03-28 08:34 | XMS_ITS | Clinical Summary ---
Author Organization [employer] ([place], [place], [place], [place]) Address [address] [place] [address] Care Team Providers Care Preventive Medicine Officer Name Role Phone Kiana Arenas PA-C Primary Care Provider [phone] Allergies Active Allergy Reactions Criticality Noted Date Comments Sulfamethoxazole-Trimethoprim Hives High 2023 Cefaclor Hives High 05/11/2024 Medications No known medications Social History Tobacco Use Types Packs/Day Years Used Date Smoking Tobacco: Every Day Cigarettes Smokeless Tobacco: Never Tobacco Cessation:Ready to Q uit: Not Asked; Counseling Given: Not Answered Alcohol Use Standard Drinks/Week Comments Never 0 (1 standard drink = 0.6 oz pur e alcohol) Food Insecurity Answer Date Recorded Food run out past 12 months Not on file 12/2023 Food did not last past 12 months Not on file 05/11/2024 Employment Answer Date Recorded Help finding and keeping a job Not on file 1 Family and Community Support Answer Eligio e Recorded Help with Day to Day Activities Not on file 05/11/2024 Feeling Lonely or Isolated Not on file 05/11 Educational Attainment Answer Date James rded Speak language other than Frisian at home Not on file 05/11/2024 Want help with school or training Not on file 05/11/2024 Substance Use Answer Date Recorded Used prescription meds for non-medical reasons N ot on file 05/11/2024 Used illegal drugs past 12 months Not on file 05/11/2024 Comments Unknown Sex and Gender Information Value Date Recorded Sex Assigned at Not on file Legal Sex Female 2:38 PM CDT Gender Identity Not on file Sexual Orientation Not on file Last Filed Vital Signs Vital Sign Reading Time Taken Comments Blood Pressure 139/76 05/11/2024 2:15 PM EDT Pulse 80 05/11/2024 2:15 PM EDT Temperature 36.2 C (97.2 F) 05/11/2024 10:52 AM EDT Respiratory Rate 15 05/11/2024 2:15 PM EDT Oxygen Saturation 98% 05/11/2024 2:15 PM EDT Inhaled Oxygen Concentration - - Weight 54.4 kg (120 lb) 05/11/2024 10:52 AM EDT Height 170.2 cm (5' 7 ) 05/11/2024 10:52 AM EDT Body Mass Index 18.79 05/11/2024 10:52 AM EDT Plan of Treatment Health Maintenance Due Date Last Done Comments CT Colonography 1969 Colonoscopy 1969 Colorectal Cancer Screening 1969 FOBT/FIT 1969 Fit-DNA (Cologuard) 1969 Sigmoidoscopy 1969 Depression Screening (12+) 1981 Tobacco Cessation Counseling and Screening (12+) 1981 HIV Screening 1984 Hepatitis C Screening 1987 DTAP/TDAP/TD VACCINES (1 - Tdap) 1988 Pap Smear 1990 Breast Cancer Screening 2009 Lipid Panel 2014 Shingles Vaccine (Zoster) (1 of 2) 2019 COVID-19 VACCINE (3 - season) 2024, 08/02/2021 Influenza Vaccine (#1) 2025 Pneumococcal 50+ years Completed 01/13/2023, 2018 Insurance [facility] Care Teams Preventive Medicine Officer Relationship Specialty Start Date End Date Kiana Arenas, PADebiC [address] [place] [address] PCP - General Physician Front Office Medical Assistant 05/11/24
--- OUTSIDE RECORDS SUMMARY | 2025-03-28 08:34 | XMS_ITS | Encounter Summary ---
Author Organization Healthcare Address [address] [place] [address] Care Team Providers Care Field Agent Name Role Phone Kiana Arenas Primary Care Provider [phone] Grey Wu MD Unavailable [phone] Mini Cordova MD Unavailable [phone] Alonzo Ritter MD Unavailable Encounter Details Date Type Department Care Team (Late Contact Info) Description 05/11/2024 Orders Only External Location [address] [place] [address] Provider, External Social History Tobacco Use Types [...] CC Hematology/BMT and Cellular Therapy Program 750 [facility], [address] [place] [place] [address] 04/09/2025 9:30 AM EDT Office Visit [facility] Hematology/BMT and Cellular Therapy Program [address] [place] [address] Mini Cordova MD [address] [place] [address] 04/21/2025 10:30 AM EDT Appointment [facility] Radiation [address] [place] [address] Anusha Martines, SQL SERVER CONSULTANT, DNP [address] [place] [address] 04/23/2025 11:10 AM EDT Office Visit [facility] Medicine Specialties [address], 2nd [place] [address] Dunia Menard, SQL SERVER CONSULTANT [address] [place] [address] 05/26/2025 9:00 AM EDT Office Visit [facility] Bone & Mineral Metabolism [address] [facility], [address] [place] [address] June Jensen MD [address] [facility] 3rd [address] [place] [address] 06/02/2025 3:45 PM EDT Office Visit [facility] Specialties [address], [address] [place] [address] Mickie Crocker DO [address] [place] [address] documented as of this encounter Procedures Procedure Name Priority Date/Time Associated Diagnosis Comments CT NEURO OUTSIDE IMAGES 05/11/2024 11:53 AM EDT documented in this encounter Results * CT NEURO OUTSIDE IMAGES (05/11/2024 11:53 AM EDT) Anatomical Region Laterality Modality Computed Tomogra phy 05/11/2024 11:5 3 AM EDT External Provider IMG CT PROCEDURES [...] documented as of this encounter Care Teams Field Agent Relationship Specialty Start Date End Date Kiana Arenas PA [address] [place] [address] PCP - General 12/18/20 Grey Wu MD 800 [facility] [address] [place] [address] Consulting Physician Radiation Oncology 09/16/24 Mini Cordova MD [address] [place] [address] Consulting Physician Palliative Medicine 11/27/24 Alonzo Ritter MD 800 [facility] [address] [place] [address] Consulting Physician Medical Oncology 11/27/24 documented as of this encounter
--- OUTSIDE RECORDS SUMMARY | 2025-03-28 08:34 | XMS_ITS | Referral Summary ---
Author Organization [employer] ([place], [place], [place], [place]) Address [address] [place] [address] Care Team Providers Care Screen Printing Machine Operator Helper Name Role Phone Kiana Arenas PA-C Primary Care Provider [phone] Allergies Active Allergy Reactions Criticality Noted Date [...] Date James rded Speak language other than French at home Not on file 05/11/2024 Want [...] 05/11/2024 10:52 AM EDT Plan of Treatment Not on file Insurance [employer] [place] [address] Care Teams Screen Printing Machine Operator Helper Relationship Specialty Start Date End Date Kiana Arenas, RYLEY [address] [place] [address] PCP - General Physician Foundry Hand 05/11/24
--- OUTSIDE RECORDS SUMMARY | 2025-03-28 08:35 | XMS_ITS | Encounter Summary ---
Author Organization Healthcare Address [address] [place] [address] Care Team Providers Care Watch Assembly Instructor Name Role Phone Kiana Arenas Primary Care Provider [phone] Grey Wu MD Unavailable [phone] Mini Cordova MD Unavailable [phone] Alonzo Ritter MD Unavailable Encounter Details Date Type Department Care Team (Late Contact Info) Description 03/01/2023 Orders Only External Location [address] [place] [address] Dunia Menard S, BACK TENDER PULP DRIER [address] [facility] [address] [place] [address] Social History Tobacco Use Types Packs/Day Years Used Date Smoking Tobacco: Some Days Cigarettes 0.5 41.2 Started: 01/17/1984 Passive Smoke Exposure: Current Comments Unknown Sex and Gender Information Value [...] CC Hematology/BMT and Cellular Therapy Program [address] [place] [address] 04/09/2025 9:30 AM EDT Office Visit [facility] Hematology/BMT and Cellular Therapy Program [address] [place] [address] Mini Cordova MD [address] [place] [address] 04/21/2025 10:30 AM EDT Appointment [facility] Radiation [id number] [place] [address] Anusha Martines, BACK TENDER PULP DRIER, DNP [address] [place] [address] 04/23/2025 11:10 AM EDT Office Visit [facility] Medicine Specialties [address], 2[address] [place] [address] Dunia Menard, JOVANNY [address] [place] [address] 05/26/2025 9:00 AM EDT Office Visit [facility] Bone & Mineral Metabolism [address] [facility], [address] [place] [address] June Jensen MD [address] [place] [address] 06/02/2025 3:45 PM EDT Office Visit [facility] Medicine Specialties [address], [address] [place] [address] Mickie Crocker DO [address] [place] [address] documented as of this encounter Procedures Procedure Name Priority Date/Time Associated Diagnosis Comments CT OUTSIDE IMAGES 03/01/2023 1:23 PM EDT documented in this encounter Results * CT OUTSIDE IMAGES (03/01/2023 1:23 PM EDT) Anatomical Region Laterality Modality Computed Tomogra phy 03/01/2023 1:23 PM EDT Dunia Gandara Menard BACK TENDER PULP DRIER IMG CT PROCEDURES Final R esult documented in this encounter Visit Diagnoses Not on filedocumented in this encounter Additional Health Concerns Assessment Noted Time A fall risk assessment has been complete d for the patient 01/13/2023 2:12 PM EDT documented as of this encounter Care Teams Watch Assembly Instructor Relationship Specialty Start Date End Date Kiana Arenas PA [address] [place] [address] PCP - General 12/18/20 Grey Wu MD [address] [facility] [address] [place] [address] Consulting Physician Radiation Oncology 09/16/24 Mini Cordova MD [address] [facility] [address] [place] [address] Consulting Physician Palliative Medicine 11/27/24 Alonzo Ritter MD [address] [facility] [address] [place] [address] Consulting Physician Medical Oncology 11/27/24 documented as of this encounter
--- OUTSIDE RECORDS SUMMARY | 2025-03-28 08:35 | XMS_ITS | Encounter Summary ---
Author Organization Healthcare Address [address] [place] [address] Care Team Providers Care Alterations Sewer Name Role Phone Kiana Arenas Primary Care Provider [phone] Grey Wu MD Unavailable [phone] Mini Cordova MD Unavailable [phone] Alonzo Ritter MD Unavailable Encounter Details Date Type Department Care Team (Latest Contact Info) Description 02/17/2025 Travel Social History Tobacco Use Types Packs/Day [...] [facility], [address] [place] [address] 04/09/2025 9:30 AM EDT Office Visit [facility] Hematology/BMT and Cellular Therapy Program 750 [facility], [address] [place] [address] Mini Cordova MD [address] [place] [address] 04/21/2025 10:30 AM EDT Appointment [facility] Radiation [address] [place] [address] Anusha Martines, DIRECTOR RELIGIOUS EDUCATION, DNP 800 [facility] [address] [place] [address] 04/23/2025 11:10 AM EDT Office Visit [facility] Medicine Specialties [address] [place] [address] Dunia Menard, JOVANNY [address] [place] [address] 05/26/2025 9:00 AM EDT Office Visit [facility] Abzena [facility]ry Bone & Mineral Metabolism [address] [facility], [address] [place] [address] June Jensen MD [address] [facility] [address] [place] [address] 06/02/2025 3:45 PM EDT Office Visit [facility] Medicine Specialties [address] [place] [address] Mickie Crocker DO [address] [place] [address] documented as of this encounter [...] documented as of this encounter Care Teams Alterations Sewer Relationship Specialty Start Date End Date Kiana Arenas PA [address] [place] [address] PCP - General 12/18/20 Grey Wu MD [address] [facility] [address] [place] [address] Consulting Physician Radiation Oncology 09/16/24 Mini Cordova MD [address] [place] [address] Consulting Physician Palliative Medicine 11/27/24 Alonzo Ritter MD [address] [facility] [address] [place] [address] Consulting Physician Medical Oncology 11/27/24 documented as of this encounter
--- OUTSIDE RECORDS SUMMARY | 2025-03-28 08:35 | XMS_ITS | Encounter Summary ---
Author Organization Healthcare Address [address] [place] [address] Care Team Providers Care Master Glazier Name Role Phone Kiana Arenas Primary Care Provider [phone] Grey Wu MD Unavailable [phone] Mini Cordova MD Unavailable [phone] Alonzo Ritter MD Unavailable Reason for Visit * Reason Comments Med Refill Encounter Details Date Type Department Care Team (Late st Contact Info) Description 02/14/2024 Refill [facility] Medicine Specialties [address] [place] [address] August, [address] [place] [address] Seropositive rheumatoid arthritis of multiple sites ([facility]) Social History Tobacco Use Types Packs/Day Years Used Date Smoking Tobacco: Every Day Cigarettes 0.5 41.2 Started: 01/17/1984 Passive Smoke Exposure: Current Comments:Depends on the day for how many cigarettes used PHQ-2 Answer Date Recorded Patient Health Questionnaire-2 Score 0 11/17/2023 Comments Unknown Sex and Gender Information Value Date Recorded Sex Assigned at Not on file Legal Sex Female 6:02 PM EDT Gender Identity Not on file Sexual Orientation Not on file documented as of this encounter Miscellaneous Notes * Telephone Encounter - August, - 02/14/2024 2:32 PM EDT Needs to be seen in the office. Refill not appropriate documented in this encounter Plan of Treatment Upcoming Encounters Date Type Department Care Team (Late st Contact Info) Description 04/09/2025 9:00 AM EDT Clinical Support [facility] Hematology/BMT and Cellular Therapy Program [address] [facility], [address] [place] [address] 04/09/2025 9:30 AM EDT Office Visit [facility] Hematology/BMT and Cellular Therapy Program [address] [facility], [address] [place] [address] Mini Cordova MD [address] [place] [address] 04/21/2025 10:30 AM EDT Appointment [facility] Radiation [id number] [place] [address] Anusha Martines APRN, DNP [address] [place] [address] 04/23/2025 11:10 AM EDT Office Visit [facility] Medicine Specialties [address] [place] [address] Dunia Menard APRN [address] [place] [address] 05/26/2025 9:00 AM EDT Office Visit [facility] Bone & Mineral Metabolism [address] [facility], [address] [place] [address] June Jensen MD [address] [facility] [address] [place] [address] 06/02/2025 3:45 PM EDT Office Visit [facility] Medicine Specialties [address] [place] [address] Mickie Crocker DO [address] [place] [address] documented as of this encounter Visit Diagnoses Diagnosis Seropositive rheumatoid arthritis of multiple sites (CMS/HCC) documented in this encounter Additional Health Concerns Assessment Noted Time A fall risk assessment has been complete d for the patient 11/17/2023 3:50 PM EDT A Body Mass Index follow-up plan has been documented for the patient 11/21/2023 11:35 AM EDT documented as of this encounter Care Teams Master Glazier Relationship Specialty Start Date End Date Kiana Arenas PA [address] [place] [address] PCP - General 12/18/20 Grey Wu MD [address] [facility] [address] [place] [address] Consulting Physician Radiation Oncology 09/16/24 Mini Cordova MD [address] [place] [address] Consulting Physician Palliative Medicine 11/27/24 Alonzo Ritter MD [address] Maria Del Rosario [facility] [address] [place] [address] Consulting Physician Medical Oncology 11/27/24 documented as of this encounter
--- OUTSIDE RECORDS SUMMARY | 2025-03-28 08:35 | XMS_ITS | Encounter Summary ---
Author Organization [facility] Address [address] [place] [address] Care Team Providers Care Potash Flaker Name Role Phone Kiana Arenas Primary Care Provider [phone] Grey Wu MD Unavailable [phone] Mini Cordova MD Unavailable [phone] Alonzo Ritter MD Unavailable Encounter Details Date Type Department Care Team (Late st Contact Info) Description 02/05/2025 Telephone [facility] CC Hematology/BMT and Cellular Therapy Program [address] [place] [address] Sanjana Fonseca MD [address] [place] [id number] Social History Tobacco Use Types Packs/Day Years [...] Health Questionnaire-2 Score 2 02/05/2025 11:00 AM DIXONT Leah Villanueva RN * Question Answer Date of Assessment Author Trouble falling or staying asleep, or sleeping too much Several days 02/05/2025 11:00 AM EDT Latonia Bell RN Feeling tired or having little energy [...] way Not at all 02/05/2025 11:00 AM Jeremy Ewing RN Patient Health Questionnaire-9 Score 6 02/05/2025 11:00 AM Leah Ewing, RN documented as of this encounter Miscellaneous Notes * Telephone Encounter - JulisaMurray - 02/05/2025 2:53 PM EDT Clinic Pharmacy called about them receiving a prescription for buprenorphine (Butrans) 15 MCG/HR. Pharmacy stated that they believed script was supposed to go to [facility] and that they are going to cancel it. Patient's prescription has always been filled at [facility] due to them never having it in stock. CALLBACK NUMBER: [phone] documented in this encounter Plan of Treatment Upcoming Encounters Date Type Department Care Team (Late st Contact Info) Description 04/09/2025 9:00 AM EDT Clinical Support [facility] CC Hematology/BMT and Cellular Therapy Program [address] [address] 04/09/2025 9:30 AM EDT Office Visit [facility] CC Hematology/BMT and Cellular Therapy Program [address] [address] Mini Cordova MD [address] [facility] [address] [place] [address] 04/21/2025 10:30 AM EDT Appointment [facility] CC Radiation 800 [facility]. [address] [place] [address] Anusha Martines APRN, DNP [address] [facility] [address] [place] [address] 04/23/2025 11:10 AM EDT Office Visit [facility] [address] [place] [address] Dunia Menard APRN [address] [place] [address] 05/26/2025 9:00 AM EDT Office Visit [facility] [address], [address] [place] [address] June Jensen MD [address] [place] [address] 06/02/2025 3:45 PM EDT [facility] [address] [place] [address] Mickie Crocker, [address] [place] [address] documented as of this encounter Visit Diagnoses Diagnosis Cancer related pain Chronic pain syndrome Encounter for palliative care documented in this encounter Additional Health Concerns Assessment Noted Time PHQ-9 Depression Total Score: 6 02/06/20 25 11:00 AM EDT A fall risk assessment has been complete d for the patient 01/20/2025 1:32 PM EDT A Body Mass Index follow-up plan has been documented for the patient 01/21/2025 3:27 PM EDT documented as of this encounter Care Teams Potash Flaker Relationship Specialty Start Date End Date Kiana Arenas PA [address] [place] [address] PCP - General 12/18/20 Grey Wu MD [address] [place] [address] Consulting Physician Radiation Oncology 09/16/24 Mini Cordova MD [address] [place] [address] Consulting Physician Palliative Medicine 11/27/24 Alonzo Ritter MD [address] [facility] [address] [address] Consulting Physician Medical Oncology 11/27/24 documented as of this encounter
--- OUTSIDE RECORDS SUMMARY | 2025-03-28 08:35 | XMS_ITS | Encounter Summary ---
Author Organization Healthcare Address [address] [place] [address] Care Team Providers Care Night Clerk Auditor Name Role Phone Kiana Arenas Primary Care Provider [phone] Grey Wu MD Unavailable [phone] Mini Cordova MD Unavailable [phone] Alonzo Ritter MD Unavailable Encounter Details Date Type Department Care Team (Latest Contact Info) Description 02/04/2025 Travel Social History Tobacco Use Types Packs/Day [...] CC Hematology/BMT and Cellular Therapy Program 750 [facility], [address] [address] 04/09/2025 9:30 AM EDT Office Visit [facility] CC Hematology/BMT and Cellular Therapy Program 750 [facility] [facility] [place] [address] Mini Cordova MD [address] [place] [address] 04/21/2025 10:30 AM EDT Appointment [facility] CC Radiation [id number] [place] [address] Anusha Martines, ELECTRO MECHANICAL TECHNICIAN, DNP [address] [facility] [address] [place] [address] 04/23/2025 11:10 AM EDT Office Visit [facility] Medicine Specialties [address] [place] [address] Dunia Menard, JOVANNY [address] [place] [address] 05/26/2025 9:00 AM EDT Office Visit [facility] [address] [facility], [address] [place] [address] June Jensen MD [address] [facility] 3rd [address] [place] [address] 06/02/2025 3:45 PM EDT Office Visit [facility] Medicine Specialties [address] [place] [address] Mickie Crocker DO [address] [place] [address] documented as of this encounter Visit Diagnoses Not on filedocumented in this encounter Additional Health Concerns Assessment Noted Time PHQ-9 Depression Total Score: 6 01/21/20 25 10:00 AM EDT A fall risk assessment has been complete d for the patient 01/20/2025 1:32 PM EDT A Body Mass Index follow-up plan has been documented for the patient 01/21/2025 3:27 PM EDT documented as of this encounter Care Teams Night Clerk Auditor Relationship Specialty Start Date End Date Kiana Arenas PA [address] [place] [address] PCP - General 12/18/20 Gery Wu MD [address] [facility] [address] [place] [address] Consulting Physician Radiation Oncology 09/16/24 Mini Cordova MD [address] [place] [address] Consulting Physician Palliative Medicine 11/27/24 Alonzo Ritter MD [address] [facility] [address] [place] [address] Consulting Physician Medical Oncology 11/27/24 documented as of this encounter
--- OUTSIDE RECORDS SUMMARY | 2025-03-28 08:35 | XMS_ITS | Encounter Summary ---
Author Organization [facility] Address [address] [place] [address] Care Team Providers Care Vice President Planning Name Role Phone Kiana Arenas Primary Care Provider [phone] Grey Wu MD Unavailable [phone] Mini Cordova MD Unavailable [phone] Alonzo Ritter MD Unavailable Reason for Visit * Reason Onset Date Comments Med Refill 02/03/2025 Encounter Details Date Type Department Care Team (Late st Contact Info) Description 02/03/2025 Telephone [facility] CC Hematology/BMT and Cellular Therapy Program [address] [place] [address] Sanjana Fonseca MD [address] [place] [address] Med Refill Social History Tobacco Use Types Packs/Day Years Used Date Smoking Tobacco: Every Day Cigarettes 0.3 41.2 Started: 01/17/1984 Passive Smoke Exposure: Current Smokeless Tobacco: Never Comments:Smoking 2-3 cigaret sharyn daily Alcohol Use Standard Drinks/Week Comments Never 0 (1 standard drink = 0.6 oz pur e alcohol) PHQ-2 Answer Date Recorded Patient Health Questionnaire-2 Score 2 01/20/2025 PHQ-9 Answer Date Recorded Patient Health Questionnaire-9 Score 6 01/20/2025 AUDIT-C Answer Date Recorded Q1: How often [...] encounter Miscellaneous Notes * Telephone Encounter - Ekaterina Sol - 02/03/2025 10:09 AM EDT Erinn called and asked if her visit on 02/05 could be made TH. I explained that I would have to checkwith the nurse as it was a RN visit and I Was not certain if they needed to draw labs. Reached out to nurse for guidance. Nurse unavailable. Best number to contact is [phone]. documented in this encounter Plan of Treatment Upcoming Encounters Date Type Department Care Team (Late st Contact Info) Description 04/09/2025 9:00 AM EDT Clinical Support [facility] CC Hematology/BMT and Cellular Therapy Program [address] [phone] 04/09/2025 9:30 AM EDT Office Visit [facility] CC Hematology/BMT and Cellular Therapy Program [address] [phone] Mini Cordova MD [address] [facility] [address] [place] [address] 04/21/2025 10:30 AM EDT Appointment [facility] CC Radiation [address] [facility]. [id number] [place] [address] Anusha Martines, DIRECTOR, DNP 800 [facility] [address] [place] [address] 04/23/2025 11:10 AM EDT [facility] Visit [facility] [address] [place] [address] Dunia Menard S, DIRECTOR [address] [place] [address] 05/26/2025 9:00 AM EDT Office Visit [facility] [address] [facility], [address] [place] [address] June Jensen MD [address] [place] [address] 06/02/2025 3:45 PM EDT [facility] [address] [place] [address] Mickie Crocker DO [address] [place] [address] documented as of this encounter Visit Diagnoses Diagnosis Cancer related pain documented in this encounter Additional Health Concerns Assessment Noted Time PHQ-9 Depression Total Score: 6 01/21/20 10:00 AM EDT A fall risk assessment has been complete d for the patient 01/20/2025 1:32 PM EDT A Body Mass Index follow-up plan has been documented for the patient 01/21/2025 3:27 PM EDT documented as of this encounter Care Teams Vice President Planning Relationship Specialty Start Date End Date Kiana Arenas PA [address] [place] [address] PCP - General 12/18/20 Grey Wu MD [address] [place] [address] Consulting Physician Radiation Oncology 09/16/24 Mini Cordova MD [address] [place] [address] Consulting Physician Palliative Medicine 11/27/24 Alonzo Ritter MD [address] [place] [address] Consulting Physician Medical Oncology 11/27/24 documented as of this encounter
--- OUTSIDE RECORDS SUMMARY | 2025-03-28 08:35 | XMS_ITS | Encounter Summary ---
Author Organization Healthcare Address [address] [place] [address] Care Team Providers Care Hat Lining Paster Name Role Phone Kiana Arenas Primary Care Provider [phone] Grey Wu MD Unavailable [phone] Mini Cordova MD Unavailable [phone] Alonzo Ritter MD Unavailable Encounter Details Date Type Department Care Team (Latest Contact Info) Description 01/29/2025 Travel Social History Tobacco Use Types Packs/Day [...] CC Hematology/BMT and Cellular Therapy Program 750 [facility], [address] [place] [address] 04/09/2025 9:30 AM EDT Office Visit [facility] CC Hematology/BMT and Cellular Therapy Program 750 [facility], [address] [facility] [place] [address] Mini oCrdova MD [address] [place] [address] 04/21/2025 10:30 AM EDT Appointment [facility] CC Radiation [id number] [place] [address] Anusha Martines, EMBEDDER, DNP 800 [facility] [address] [place] [address] 04/23/2025 11:10 AM EDT Office Visit [facility] Medicine Specialties [address] [place] [address] Dunia Menard, JOVANNY [address] [place] [address] 05/26/2025 9:00 AM EDT Office Visit [facility] [address] [facility], [address] [place] [address] June Jensen MD [address] [facility] [address] [place] [address] 06/02/2025 3:45 PM EDT Office Visit [facility] Medicine Specialties [address] [place] [address] Mickie Crocker DO [address] [place] [address] documented as of this encounter [...] documented as of this encounter Care Teams Hat Lining Paster Relationship Specialty Start Date End Date Kiana Arenas PA [address] [facility] [place] [address] PCP - General 12/18/20 Grey Wu MD [address] [facility] [address] [place] [address] Consulting Physician Radiation Oncology 09/16/24 Mini Cordova MD [address] [place] [address] Consulting Physician Palliative Medicine 11/27/24 Alonzo Ritter MD [address] [facility] [address] [place] [address] Consulting Physician Medical Oncology 11/27/24 documented as of this encounter
--- OUTSIDE RECORDS SUMMARY | 2025-03-28 08:35 | XMS_ITS | Encounter Summary ---
Author Organization Healthcare Address [address] [place] [address] Care Team Providers Care Extrusion Press Operator Name Role Phone Kiana Arenas Primary Care Provider [phone] Grey Wu MD Unavailable [phone] Mini Cordova MD Unavailable [phone] Alonzo Ritter MD Unavailable Encounter Details Date Type Department Care Team (Latest Contact Info) Description 02/11/2025 Travel Social History Tobacco Use Types Packs/Day [...] Program 750 [facility], [address] [place] [address] 04/09/2025 9:30 AM EDT Office Visit [facility] Hematology/BMT and Cellular Therapy Program [address] [facility], [address] [place] [address] Mini Cordova MD [address] [place] [address] 04/21/2025 10:30 AM EDT Appointment [facility] CC Radiation [address] [place] [address] Anusha Martines, TENONER OPERATOR, DNP [address] [facility] [address] [place] [address] 04/23/2025 11:10 AM EDT Office Visit [facility] Medicine Specialties [address] [place] [address] Dunia Menard, JOVANNY [address] [place] [address] 05/26/2025 9:00 AM EDT Office Visit [facility] [address] [facility], [address] [place] [address] June Jensen MD [address] [facility] [address] [place] [address] 06/02/2025 3:45 PM EDT Office Visit [facility] Medicine Specialties [address] [place] [address] Mickie Crocker DO [address] [place] [address] documented as of this encounter [...] documented as of this encounter Care Teams Extrusion Press Operator Relationship Specialty Start Date End Date Kiana Arenas PA [address] [facility] [place] [address] PCP - General 12/18/20 Grey Wu MD [address] [facility] [address] [place] [address] Consulting Physician Radiation Oncology 09/16/24 Mini Cordova MD [address] [place] [address] Consulting Physician Palliative Medicine 11/27/24 Alonzo Ritter MD [address] [facility] [address] [place] [address] Consulting Physician Medical Oncology 11/27/24 documented as of this encounter
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
--- OUTSIDE RECORDS SUMMARY | 2025-03-28 08:35 | XMS_ITS | Encounter Summary ---
Author Organization Healthcare Address [address] [place] [address] Care Team Providers Care Harnessmaker Name Role Phone Kiana Arenas Primary Care Provider [phone] Grey Wu MD Unavailable [phone] Mini Cordova MD Unavailable [phone] Alonzo Ritter MD Unavailable Encounter Details Date Type Department Care Team (Latest Contact Info) Description 01/30/2025 Travel Social History Tobacco Use Types Packs/Day [...] Program [address] [facility], [address] [place] [address] 04/09/2025 9:30 AM EDT Office Visit [facility] Hematology/BMT and Cellular Therapy Program [address] [facility], [address] [place] [address] Mini Cordova MD [address] [place] [address] 04/21/2025 10:30 AM EDT Appointment [facility] Radiation [address] [id number] [place] [address] Anusha Martines, VIDEOTAPE EDITOR, DNP [address] [facility] [address] [place] [address] 04/23/2025 11:10 AM EDT Office Visit [facility] Medicine Specialties [address], 2[address] [place] [address] Dunia Menard, JOVANNY [address] [place] [address] 05/26/2025 9:00 AM EDT Office Visit [facility] [employer] [facility] [address] [facility], [address] [place] [address] June Jensen MD [address] [facility] 3[address] [place] [address] 06/02/2025 3:45 PM EDT Office Visit [facility] Medicine Specialties [address], [address] [place] [address] Mickie Crocker DO [address] [place] [address] documented as of this encounter [...] documented as of this encounter Care Teams Harnessmaker Relationship Specialty Start Date End Date Kiana Arenas PA [address] [place] [address] PCP - General 12/18/20 Grey Wu MD [address] [facility] [address] [place] [address] Consulting Physician Radiation Oncology 09/16/24 Mini Cordova MD [address] [place] [address] Consulting Physician Palliative Medicine 11/27/24 Alonzo Ritter MD [address] [facility] [address] [place] [address] Consulting Physician Medical Oncology 11/27/24 documented as of this encounter
--- OUTSIDE RECORDS SUMMARY | 2025-03-28 08:35 | XMS_ITS | Patient Health Record ---
Author Organization [id number] [facility] Address [address] [place], [place] [id number] Care Team Providers Care Visitor Services Specialist Name Role Phone KARLY Avila [phone] Reason For Referral No Information Plan Of Treatment No Information Insurance Providers Payer Name Payer Address Payer Phone Subscriber Number Group Number Insured Name Patient Relationship to Insured Coverage Start Date Coverage End Date MEDICAID [place] [address] [place], [place] [id number] [phone] [id number] Erinn Nunez Self - patient is the insured 0 1
--- OUTSIDE RECORDS SUMMARY | 2025-03-28 08:35 | XMS_ITS | Encounter Summary ---
Author Organization Healthcare Address [address] [place] [address] Care Team Providers Care Nipping Machine Operator Name Role Phone Kiana Arenas Primary Care Provider [phone] Grey Wu MD Unavailable [phone] Mini Cordova MD Unavailable [phone] Alonzo Ritter MD Unavailable Encounter Details Date Type Department Care Team (Late Contact Info) Description 09/16/2019 Orders Only External Location [address] [place] [address] Provider, External Social History Tobacco Use Types [...] CC Hematology/BMT and Cellular Therapy Program [address] [place] [address] 04/09/2025 9:30 AM EDT Office Visit [facility] Hematology/BMT and Cellular Therapy Program [address] [place] [address] Mini Cordova MD [address] [place] [address] 04/21/2025 10:30 AM EDT Appointment [facility] Radiation [address] [id number] [place] [address] Anusha Martines, FIRST DYER, DNP [address] [place] [address] 04/23/2025 11:10 AM EDT Office Visit [facility] Medicine Specialties [address], 2nd [place] [address] Dunia Menard, FIRST DYER [address] [place] [address] 05/26/2025 9:00 AM EDT Office Visit [facility] [place] [facility] [address] [facility], [address] [place] [address] June Jensen MD [address] 3[address] [place] [address] 06/02/2025 3:45 PM EDT Office Visit [facility] Medicine Specialties [address], 2nd [place] [address] Mickie Crocker DO [address] [place] [address] documented as of this encounter Procedures Procedure Name Priority Date/Time Associated Diagnosis Comments MR NEURO OUTSIDE IMAGES 09/16/2019 10:20 AM EST documented in this encounter Results * MR NEURO OUTSIDE IMAGES (09/16/2019 10:20 AM EST) Anatomical Region Laterality Modality Magnetic Resonan ce 09/16/2019 10:2 0 AM EST us External Provider IMG MRI PROCEDURES Final Resul t documented in this encounter Visit Diagnoses Not on filedocumented in this encounter Care Teams Nipping Machine Operator Relationship Specialty Start Date End Date Kiana Arenas PA [address] [facility] [place] [address] PCP - General 12/18/20 Grey Wu MD 800 [facility] [address] [place] [address] Consulting Physician Radiation Oncology 09/16/24 Mini Cordova MD [address] [facility] [address] [place] [address] Consulting Physician Palliative Medicine 11/27/24 Alonzo Ritter MD 800 [facility] [address] [place] [address] Consulting Physician Medical Oncology 11/27/24 documented as of this encounter
--- OUTSIDE RECORDS SUMMARY | 2025-03-28 08:36 | XMS_ITS | Encounter Summary ---
Author Organization [facility] Address [address] [place] [address] Care Team Providers Care Pathology Manager Name Role Phone Kiana Arenas Primary Care Provider [phone] Grey Wu MD Unavailable [phone] Mini Cordova MD Unavailable [phone] Alonzo Ritter MD Unavailable Encounter Details Date Type Department Care Team (Late st Contact Info) Description 01/28/2025 Orders Only [facility] Medicine Specialties [address], 2[address] [place] [address] Mickie Crocker DO [address] [place] [address] Seropositive rheumatoid arthritis of multiple sites (CMS/HCC) (Primary Dx) Social History Tobacco Use [...] Upcoming Encounters Date Type Department Care Team ([facility] st Contact Info) Description 04/09/2025 9:00 AM EDT Clinical Support [facility] Hematology/BMT and Cellular Therapy Program [address] [phone] 04/09/2025 9:30 AM EDT Office Visit [facility] Hematology/BMT and Cellular Therapy Program [address] [phone] Mini Cordova MD [address] [facility] [address] [place] [address] 04/21/2025 10:30 AM EDT Appointment [facility] Radiation [id number] [place] [address] Anusha Martines APRN, DNP 800 [facility] [address] [place] [address] 04/23/2025 11:10 AM EDT Office Visit [facility] Medicine Specialties [address], 2nd [place] [address] Dunia Menard APRN [address] [facility] [address] [place] [address] 05/26/2025 9:00 AM EDT Office Visit [facility] [employer] [place] [facility] [address] [facility], [address] [place] [address] June Jensen MD [address] [facility] 3rd Fl [address] [place] [address] 06/02/2025 3:45 PM EDT Office Visit [facility] Medicine Specialties [address], 2[address] [place] [address] Obi Mickie, DO [address] [place] [address] documented as of this encounter Visit Diagnoses Diagnosis Seropositive rheumatoid arthritis of multiple sites (CMS/HCC)- Primary documented in this encounter Additional Health Concerns Assessment Noted Time PHQ-9 Depression Total Score: 6 01/21/20 25 10:00 AM EDT A fall risk assessment has been complete d for the patient 01/20/2025 1:32 PM EDT A Body Mass Index follow-up plan has been documented for the patient 01/21/2025 3:27 PM EDT documented as of this encounter Care Teams Pathology Manager Relationship Specialty Start Date End Date Kiana Arenas PA [address] [place] [address] PCP - General 12/18/20 Grey Wu MD [address] [facility] [address] [place] [address] Consulting Physician Radiation Oncology 09/16/24 Mini Cordova MD [address] [place] [address] Consulting Physician Palliative Medicine 11/27/24 Alonzo Ritter MD [address] [facility] [address] [place] [address] Consulting Physician Medical Oncology 11/27/24 documented as of this encounter
--- OUTSIDE RECORDS SUMMARY | 2025-03-28 08:36 | XMS_ITS | Encounter Summary ---
Author Organization Healthcare Address [address] [place] [address] Care Team Providers Care Gravel Roofer Name Role Phone Kiana Arenas Primary Care Provider [phone] Grey Wu MD Unavailable [phone] Mini Cordova MD Unavailable [phone] Alonzo Ritter MD Unavailable Encounter Details Date Type Department Care Team (Latest Contact Info) Description 02/25/2025 Travel Social History Tobacco Use Types Packs/Day [...] CC Hematology/BMT and Cellular Therapy Program 750 [facility], [address] [place] [address] 04/09/2025 9:30 AM EDT Office Visit [facility] Hematology/BMT and Cellular Therapy Program 750 [facility], [address] [facility] [place] [address] Mini Cordova MD [address] [place] [address] 04/21/2025 10:30 AM EDT Appointment [facility] Radiation [address] [id number] [place] [address] Anusha Martines, NURSING HOME PHYSICIAN, DNP [address] [facility] [address] [place] [address] 04/23/2025 11:10 AM EDT Office Visit [facility] Medicine Specialties [address] 2nd [place] [address] Dunia Menard, JOVANNY [address] [place] [address] 05/26/2025 9:00 AM EDT Office Visit [facility] [place] [facility] [address] [facility], [address] [place] [address] June Jensen MD [address] [facility] 3[address] [place] [address] 06/02/2025 3:45 PM EDT Office Visit [facility] Medicine Specialties [address] [place] [address] Mickie Crocker DO [address] [place] [address] documented as of this encounter [...] documented as of this encounter Care Teams Gravel Roofer Relationship Specialty Start Date End Date Kiana Arenas PA [address] [place] [address] PCP - General 12/18/20 Grey Wu MD [address] [facility] [address] [place] [address] Consulting Physician Radiation Oncology 09/16/24 Mini Cordova MD [address] [place] [address] Consulting Physician Palliative Medicine 11/27/24 Alonzo Ritter MD [address] [facility] [address] [place] [address] Consulting Physician Medical Oncology 11/27/24 documented as of this encounter
--- OUTSIDE RECORDS SUMMARY | 2025-03-28 08:36 | XMS_ITS | Encounter Summary ---
Author Organization Healthcare Address [address] [place] [address] Care Team Providers Care Perfect Bind Machine Operator Name Role Phone Kiana Arenas Primary Care Provider [phone] Grey Wu MD Unavailable [phone] Mini Cordova MD Unavailable [phone] Alonzo Ritter MD Unavailable Encounter Details Date Type Department Care Team (Latest Contact Info) Description 03/03/2025 Travel Social History Tobacco Use Types Packs/Day [...] CC Hematology/BMT and Cellular Therapy Program [address] [facility], [address] [place] [address] 04/09/2025 9:30 AM EDT Office Visit [facility] Hematology/BMT and Cellular Therapy Program [address] [facility], [address] [facility] [place] [address] Mini Cordova MD [address] [place] [address] 04/21/2025 10:30 AM EDT Appointment [facility] Radiation [id number] [place] [address] Anusha Martines, FLATWORK SUPERVISOR, DNP [address] [facility] [address] [place] [address] 04/23/2025 11:10 AM EDT Office Visit [facility] Medicine Specialties [address], 2nd [place] [address] Dunia Menard, JOVANNY [address] [place] [address] 05/26/2025 9:00 AM EDT Office Visit [facility] [place] [facility] [address] [facility], [address] [place] [address] June Jensen MD [address] [facility] [address] [place] [address] 06/02/2025 3:45 PM EDT Office Visit [facility] Medicine Specialties [address], 2[address] [place] [address] Mickie Crocker DO [address] [place] [address] documented as of this encounter [...] documented as of this encounter Care Teams Perfect Bind Machine Operator Relationship Specialty Start Date End Date Kiana Arenas PA [address] [facility] [place] [address] PCP - General 12/18/20 Grey Wu MD [address] [facility] [address] [place] [address] Consulting Physician Radiation Oncology 09/16/24 Mini Cordova MD [address] [place] [address] Consulting Physician Palliative Medicine 11/27/24 Alonzo Ritter MD [address] [facility] [address] [place] [address] Consulting Physician Medical Oncology 11/27/24 documented as of this encounter
--- OUTSIDE RECORDS SUMMARY | 2025-03-28 08:36 | XMS_ITS | Encounter Summary ---
Author Organization [facility] Address [address] [place] [address] Care Team Providers Care Guest History Clerk Name Role Phone Kiana Arenas Primary Care Provider [phone] Grey Wu MD Unavailable [phone] Mini Cordova MD Unavailable [phone] Alonzo Ritter MD Unavailable Reason for Visit * Reason Onset Date Comments Med Refill 03/04/2025 Encounter Details Date Type Department Care Team (Late st Contact Info) Description 03/04/2025 Refill [facility] Medicine Specialties [address]nd [place] [address] Dunia Menard S, VENEER SORTER [address] [place] [address] COPD, severe (CMS/HCC) Social History Tobacco Use Types Packs/Day [...] Hematology/BMT and Cellular Therapy Program [address] [address] 04/09/2025 9:30 AM EDT Office Visit [facility] Hematology/BMT and Cellular Therapy Program [address] [phone] Mini Cordova MD [address] [facility] [address] [place] [address] 04/21/2025 10:30 AM EDT Appointment [facility] Radiation [id number] [place] [address] Anusha Martines, JOVANNY, DNP 800 [facility] [address] [place] [address] 04/23/2025 11:10 AM EDT Office Visit [facility] Medicine Specialties [address] [place] [address] Dunia Menard, VENEER SORTER [address] [place] [address] 05/26/2025 9:00 AM EDT Office Visit [facility] Mineral Metabolism [address] [facility], [address] [place] [address] June Jensen MD [address] [place] [address] 06/02/2025 3:45 PM EDT Office Visit [facility] Medicine Specialties [address] [place] [address] ObiMickie [address] [place] [address] documented as of this encounter Visit Diagnoses Diagnosis COPD, severe (CMS/HCC) documented in this encounter Additional Health Concerns Assessment Noted Time PHQ-9 Depression Total Score: 6 02/06/20 25 11:00 AM EDT A fall risk assessment has been complete d for the patient 01/20/2025 1:32 PM EDT A Body Mass Index follow-up plan has been documented for the patient 01/21/2025 3:27 PM EDT documented as of this encounter Care Teams Guest History Clerk Relationship Specialty Start Date End Date Kiana Arenas PA [address] [place] [address] PCP - General 12/18/20 Grey Wu MD [address] [facility] [address] [place] [address] Consulting Physician Radiation Oncology 09/16/24 Mini Cordova MD [address] [place] [address] Consulting Physician Palliative Medicine 11/27/24 Alonzo Ritter MD [address] [place] [address] Consulting Physician Medical Oncology 11/27/24 documented as of this encounter
--- OUTSIDE RECORDS SUMMARY | 2025-03-28 08:36 | XMS_ITS | Encounter Summary ---
Author Organization [facility] Address [address] [place] [address] Care Team Providers Care Advertising Material Distributor Name Role Phone Kiana Arenas Primary Care Provider [phone] Grey Wu MD Unavailable [phone] Mini Cordova MD Unavailable [phone] Alonzo Ritter MD Unavailable Encounter Details Date Type Department Care Team (Late st Contact Info) Description 03/03/2025 Telephone [facility] Radiation [id number] [place] [address] Grey Wu MD [address] [place] [address] Social History Tobacco Use Types [...] Progress Notes - Grey Wu MD - 03/07/2025 3:16 PM EDT Diagnosis: Primary Z51.0 - Encounter for antineoplastic radiation therapy, Diagnosed 03/05/2025 (Active) Primary C34.31 - Malignant neoplasm of lower lobe, right bronchus or lung, Diagnosed 10/02/2024 (Active) Date of Service: 03/07/2025 ERINN NUNEZ received 2 of 5 scheduled Stereotactic Body Radiation Treatment for their C34.31 - Malignant neoplasm of lower lobe, right bronchus or lung, Diagnosed 10/02/2024 (Active) on 03/07/2025 under the direction of Grey Wu MD. Choose an item. The stereotactic dose of 1000 cGy was received without difficulty. The patient tolerated treatment today. Therapist Initials: RAJANI Therapist Initials: DANIEL and GABBIE Other Clinic Staff Initials: Click or tap here to enter text. IMPRESSION: Today?s treatment was completed successfully. The treatment parameters were establishedwithout difficulty. This document was electronically approved by: Grey Wu MD. * Telephone Encounter - Dorothy Galan - 03/03/2025 3:46 PM EDT Patient called back to confirm start date for radiation therapy patient requested to start on 03/05 gave time for 915am documented in this encounter Plan of Treatment Upcoming Encounters Date Type Department Care Team (Late st Contact Info) Description 04/09/2025 9:00 AM EDT Clinical Support [facility] Hematology/BMT and Cellular Therapy Program 750 [facility], [address] [place] [address] [place] [address] 04/09/2025 9:30 AM EDT Office Visit [facility] Hematology/BMT and Cellular Therapy Program 750 [facility], [address] [place] [address] Mini Cordova MD [address] [place] [address] 04/21/2025 10:30 AM EDT Appointment [facility] Radiation [id number] [place] [address] Anusha Martines, WATCH MANUFACTURING SUPERVISOR, DNP 800 [facility] [address] [place] [address] 04/23/2025 11:10 AM EDT Office Visit [facility] Medicine Specialties [address] 2nd [place] [address] Dunia Menard, WATCH MANUFACTURING SUPERVISOR [address] [place] [address] 05/26/2025 9:00 AM EDT Office Visit [facility] [place] [facility] [address] [facility], [address] [place] [address] June Jensen MD [address] [facility] [address] [place] [address] 06/02/2025 3:45 PM EDT Office Visit [facility] Medicine Specialties [address] [place] [address] Mickie Crocker DO [address] [place] [address] documented as of this encounter Visit Diagnoses [...] documented as of this encounter Care Teams Advertising Material Distributor Relationship Specialty Start Date End Date Kiana Arenas PA [address] [place] [address] PCP - General 12/18/20 Grey Wu MD 800 [facility] [address] [place] [address] Consulting Physician Radiation Oncology 09/16/24 Mini Cordova MD [address] [facility] [address] [place] [address] Consulting Physician Palliative Medicine 11/27/24 Alonzo Ritter MD [address] [facility] [address] [place] [address] Consulting Physician Medical Oncology 11/27/24 documented as of this encounter
--- OUTSIDE RECORDS SUMMARY | 2025-03-28 08:36 | XMS_ITS | Encounter Summary ---
Author Organization Healthcare Address [address] [place] [address] Care Team Providers Care Pi/Senior Research Associate Name Role Phone Kiana Arenas Primary Care Provider [phone] Grey Wu MD Unavailable [phone] Mini Cordova MD Unavailable [phone] Alonzo Ritter MD Unavailable Encounter Details Date Type Department Care Team (Late st Contact Info) Description 02/27/2025 Social Work Psych Oncology [address] [place] [address] Marisel Griffin Social History Tobacco Use Types Packs/Day Years [...] CC Hematology/BMT and Cellular Therapy Program [address] [facility], [address] [address] 04/09/2025 9:30 AM EDT Office Visit [facility] Hematology/BMT and Cellular Therapy Program [address] [facility], [facility] [place] [address] Mini Cordova MD [address] [facility] [address] [place] [address] 04/21/2025 10:30 AM EDT Appointment [facility] Radiation [address] [place] [address] Anusha Martines, DRAW HAND, DNP [address] [facility] [address] [place] [address] 04/23/2025 11:10 AM EDT Office Visit [facility] Medicine Specialties [address] [place] [address] Dunia Menard APRN [address] [place] [address] 05/26/2025 9:00 AM EDT Office Visit [facility] [facility] [facility] [address] [facility], [address] [place] [address] June Jensen MD [address] [facility] [address] [place] [address] 06/02/2025 3:45 PM EDT Office Visit [facility] Medicine Specialties [address] [place] [address] Mickie Crocker DO [address] [place] [address] documented as of this encounter [...] documented as of this encounter Care Teams Pi/Senior Research Associate Relationship Specialty Start Date End Date Kiana Arenas PA [address] [facility] [address] PCP - General 12/18/20 Grey Wu MD [address] [facility] [address] [place] [address] Consulting Physician Radiation Oncology 09/16/24 Mini Cordova MD [address] [place] [address] Consulting Physician Palliative Medicine 11/27/24 Alonzo Ritter MD [address] [facility] [address] [place] [address] Consulting Physician Medical Oncology 11/27/24 documented as of this encounter
--- OUTSIDE RECORDS SUMMARY | 2025-03-28 08:36 | XMS_ITS | Encounter Summary ---
Author Organization Healthcare Address [address] [place] [address] Care Team Providers Care Chemical Radiation Technician Name Role Phone Kiana Arenas Primary Care Provider [phone] Grey Wu MD Unavailable [phone] Mini Cordova MD Unavailable [phone] Alonzo Ritter MD Unavailable Encounter Details Date Type Department Care Team (Latest Contact Info) Description 03/04/2025 Travel Social History Tobacco Use Types Packs/Day [...] CC Hematology/BMT and Cellular Therapy Program [address] [facility], [address] [place] [address] 04/09/2025 9:30 AM EDT Office Visit [facility] CC Hematology/BMT and Cellular Therapy Program [address] [facility], [address] [facility] [place] [address] Mini Cordova MD [address] [place] [address] 04/21/2025 10:30 AM EDT Appointment [facility] Radiation [address] [place] [address] Anusha Martines, CAFE HELPER, DNP [address] [facility] [address] [place] [address] 04/23/2025 11:10 AM EDT Office Visit [facility] Medicine Specialties [address] [place] [address] Dunia Menard, JOVANNY [address] [place] [address] 05/26/2025 9:00 AM EDT Office Visit [facility] [place] [address] [facility], [address] [place] [address] June Jensen MD [address] [facility] [address] [place] [address] 06/02/2025 3:45 PM EDT Office Visit [facility] Medicine Specialties [address] [place] [address] Mickie Crocker DO [address] [place] [address] documented as of this encounter [...] documented as of this encounter Care Teams Chemical Radiation Technician Relationship Specialty Start Date End Date Kiana Arenas PA [address] [facility] [place] [address] PCP - General 12/18/20 Grey Wu MD [address] [facility] [address] [place] [address] Consulting Physician Radiation Oncology 09/16/24 Mini Cordova MD [address] [place] [address] Consulting Physician Palliative Medicine 11/27/24 Alonzo Ritter MD [address] [facility] [address] [place] [address] Consulting Physician Medical Oncology 11/27/24 documented as of this encounter
--- OUTSIDE RECORDS SUMMARY | 2025-03-28 08:36 | XMS_ITS | Encounter Summary ---
Author Organization [facility] Address [address] [place] [address] Care Team Providers Care Six Sigma Black Belt Engineer Name Role Phone Kiana Arenas Primary Care Provider [phone] Grey Wu MD Unavailable [phone] Mini Cordova MD Unavailable [phone] Alonzo Ritter MD Unavailable Reason for Visit * Reason Onset Date Comments Rituximab Infusions 01/27/2025 Encounter Details Date Type Department Care Team (Late st Contact Info) Description 01/27/2025 Telephone [facility] Infusion [address] [place] [address] Kia Stoddard, PharmD Rituximab Infusions Social History Tobacco Use Types Packs/Day Years [...] doing things Several days 02/05/2025 11:00 AM DIXONT Latonia Villanueva RN Feeling down, depressed, or hopeless Several days 02/05/2025 11:00 AM EDT Latonia Villanueva RN Patient Health Questionnaire-2 Score 2 02/05/2025 11:00 AM EDT Leah Villanueva RN * Question Answer Date of Assessment Author Trouble falling or staying asleep, or sleeping too much Several days 02/05/2025 11:00 AM EDT Latonia Bell RN Feeling tired or having little energy Several days 02/05/2025 11:00 AM DIXONT Latonia Villanueva RN Poor appetite or overeating Several days 02/05/2025 11 :00 AM DIXONT Latonia Villanueva RN Feeling bad about yourself - or that you are a failure or have let yourself or your family down Not at all 02/05/2025 11:00 AM Latonia Ewing RN Trouble concentrating on things, such as reading the newspaper or watching television Several days 02/05/2025 11:00 AM DIXONT Latonia Villanueva RN Moving or [...] way Not at all 02/05/2025 11:00 AM DIXONT Jeremy Villanueva RN Patient Health Questionnaire-9 Score 6 02/05/2025 11:00 AM EDT Leah Villanueva RN documented as of this encounter Miscellaneous Notes * Telephone Encounter - Maria Del Rosario Drake, PharmD - 02/16/2025 5:19 PM EDT Patient has been approved to receive infusion treatment at outside facility. [facility] will follow up with facility to make sure patient has been scheduled and received first dose. Specialty Medication: Truxima Filling Pharmacy/SOC: [facility] * Telephone Encounter - Maria Del Rosario Drake PharmD - 02/16/2025 5:05 PM EDT Infusion Authorization Information Specialty Medication: Truxima J-Code: Q5115 CPT Code: N/A S-Codes ([place]): N/A Quantity and Units of Measure Authorized: 300 units Day Supply: 180 days Diagnosis Code: M05.79 Insurance Name: [facility] Insurance Type: Medicaid Where did you submit request and how (portal/fax/phone number): Authorization/Reference Number: [id number] Approval Dates: 02/13/2025-02/13/2026 Filling Pharmacy/SOC: [facility] * Addendum Note - Autumn Alaniz PharmD - 01/28/2025 8:53 AM EDTAddended by: AUTUMN ALANIZ on: 01/28/2025 08:53 AM Modules accepted: Orders * Telephone Encounter - Autumn Alaniz PharmD - 01/28/2025 8:46 AM EDT Sending in Ruxience to replace Rituxan via therapeutic interchange due to Insurance Formulary Preference . Counseled the patient on the substitution, and patient was agreeable to change. No monitoring required. * Telephone Encounter - Tequila Root RN - 01/28/2025 8:24 AM EDT Authorization for infusion treatment has been denied. [facility] will initiate Appeal process and will reach out about further needs. Infusion Denial Information Specialty Medication: Rituximab J-Code: J9312 Diagnosis Code: M05.79 Insurance Name: [facility] Insurance Type: Medicare Where did you submit request and how (portal, fax, phone number): Fax Filling Pharmacy/SOC: [facility] * Telephone Encounter - Kia Stoddard PharmD - 01/27/2025 10:29 AM EDT [facility] has received therapy plan for medication Rituxan. [facility] has contacted the patient and is initiating authorization for preferred site of care. [facility] Specialty Education Summary Patient was assessed via phone for initiation of drug therapy Rituxan for diagnosis RA. Plan for administration of therapy in infusion center and planned date of initiation: pending auth. [facility] pharmacy [facility]. Education and Counseling Medication specific education provided: Patient was offered counseling of their specialty medication and declined education. Patient specific/therapeutic goal(s) of therapy: Tolerate therapy and reduce signs/symptoms of condition. Summary/Plan Pharmacist reviewed patient chart for allergies and current medication list, comorbidities, relevant medical history, potential barriers to care and mitigation of those barriers, if applicable. Therapy is clinically appropriate given patient's condition. Any available financial resources were discussed with patient and utilized if appropriate. Patient has no other identified problems or needs at this time as it pertains to this specialty medication. Kia Stoddard PharmD 01/27/25 10:29 AM documented in this encounter Plan of Treatment Upcoming Encounters Date Type Department Care Team ([facility] st Contact Info) Description 04/09/2025 9:00 AM EDT Clinical Support [facility] CC Hematology/BMT and Cellular Therapy Program [address] [place] [address] 04/09/2025 9:30 AM EDT Office Visit [facility] Hematology/BMT and Cellular Therapy Program [address] [place] [address] Mini Cordova MD [address] [place] [address] 04/21/2025 10:30 AM EDT Appointment [facility] Radiation [address] [place] [address] Anusha Martines, METAL OFF BEARER, DNP [address] [place] [address] 04/23/2025 11:10 AM EDT Office Visit [facility] Medicine Specialties [address] [place] [address] Dunia Menard, JOVANNY [address] [place] [address] 05/26/2025 9:00 AM EDT Office Visit [facility] [place] [facility] [address] [facility], [address] [place] [address] June Jensen MD [address] [place] [address] 06/02/2025 3:45 PM EDT Office Visit [facility] Medicine Specialties [address] [place] [address] Mickie Crocker DO [address] [place] [address] documented as of this encounter [...] documented as of this encounter Care Teams Six Sigma Black Belt Engineer Relationship Specialty Start Date End Date Kiana Arenas PA [address] [place] [address] PCP - General 12/18/20 Grey Wu MD [address] [facility] [address] [place] [address] Consulting Physician Radiation Oncology 09/16/24 Mini Cordova MD [address] [place] [address] Consulting Physician Palliative Medicine 11/27/24 Alonzo Ritter MD [address] [facility] Maria Del Rosario Lr [facility] [address] [place] [address] Consulting Physician Medical Oncology 11/27/24 documented as of this encounter
== END 2025-03-25 19:33 | disposition left against medical advice (07) ==
LOC: ER 03-28 08:26
PROVIDERS: Emergency Provider Student in an Organized Health Care Education/Training Program; PCP Physician Assistant
DX: Z53.21 Procedure and treatment not carried out due to patient leaving prior to being seen by health care provider (principal)
CPT/HCPCS: 99211

== ENCOUNTER 2025-05-01 07:27 | Emergency (ER) | payer MEDICAID, SELFPAY ==
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
--- OUTSIDE RECORDS SUMMARY | 2024-11-13 09:45 | XMS_ITS ---
Author Organization [facility] Address [address] [place] [address] Care Team Providers Care Lockstitch Shoulder Joiner Name Role Phone Padmininatalia GASCAConnor Unavailable Kiana Wallace Mem Unavailable U [...] Duration) Notes Start Date End Date Status potassium chloride 10 mEq 1 tab(s) orall y 2 times a day; Duration: 30 day(s) 07/21/2022 Active omeprazole 20 mg 1 cap(s) orally once a day; Duration: 30 day(s) 07/21/2022 Active levothyroxine 137 mcg (0.137 mg) 1 tab(s) orally once a day; Duration: 30 day(s) 10/19/2022 Active ibuprofen 800 mg 1 tab(s) orally 3 ti mes a day 10/19/2022 Active predniSONE 20 mg 1 tab(s) orally once a day; Duration: 7 day(s) 09/14/2023 Active montelukast 10 mg 1 tab(s) orally once a day; Duration: 30 day(s) 07/21/2022 Active estradiol 1 mg 1 tab(s) orally once a day; Duration: 30 day(s) 07/21/2022 Active cyanocobalamin 1000 mcg/mL as directed intramuscularly once a month; Duration: 30 day(s) 07/21/2022 Activ e Incruse Ellipta 62.5 mcg (0.0625 mg)/inh 1 INH inhaled every 24 hours 07/21/2022 Active furosemide 20 mg 1 tab(s) orally once a day; Duration: 30 day(s) 07/21/2022 Active ZTlido 1.8% 1 patch applied topi esperanza once a day; Duration: 30 day(s) Active Lidocaine, Topical 5% 1 patch applied to pically once a day; Duration: 30 day(s) Active alendronate 70 mg 1 tab(s) orally once a week; Duration: 28 day(s) 07/21/2022 Active carvedilol 3.125 mg 1 tab(s) orally 2 ti mes a day; Duration: 30 day(s) 07/21/2022 Active azithromycin 250 mg 2 tablets on the day, then 1 tablet daily for 4 days 07/21/2022 Active TiZANidine Hydrochloride 4 mg 1 tab(s) orally every 8 hours; Duration: 30 day(s) Activ e gabapentin 600 mg 1 tab(s) orally 3 ti mes a day; Duration: 30 day(s) Active Amitriptyline Hydrochloride 25 mg 1 tab(s) orally once a day (at bedtime); Duration: 30 day(s) Active Encounters Encounter Location Date Provider Diagnosis [facility] [address] [place] [address] 11/13/2024 Connor Page 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 Refill GBP 600mg TID 2. Refill Tizanidine 4mg TID 3. Refill Amitriptyline 25mg QHS 4. Refill lidocaine 5% 1 patch daily 5. Reviewed Narcotic Agreement policies, specifically stressed a) pain medication from one provider only b) no illegal drug use c) take pain medication as prescribed, follow directions. 6. Follow up in 2 months 09/18/24 The patient presents to the [facility] office in [place], [place] for an audiovisual-te lemedicine visit via [employer].The patient was evaluated by the medical claims manager and a urine drug screen was obtained as well as vital signs. Portions of the physical examination were assisted by the medical claims manager as instructed during the audiovisual telemedicine visit. Patient consented to telemed visit. Patient is a 54-year-old female who presents to the clinic today for follow-up evaluation/margarita atment of chronic pain. Reports recent diagnosis with lung cancer Stage IV. Reports cancer has spread to her spince and ribs. She will be starting radiation for comfort to shrink some of the masses, but no treatment. She states that oncology/Hospi ce is going to take over her pain meds soon, so she will likely not be returning. Medications currently provide 60% relief of pain with no reported side effects. Follow up in 2 months or sooner if needed. 11/13/2024 Wedge compression fracture of T7-T8 vertebra, sequela (ICD-10 - S22.060S) 09/18/24 The patient presents to the [facility] office in [place], [place] for an audiovisual-te lemedicine visit via [employer].The patient was evaluated by the medical claims manager and a urine drug screen was obtained as well as vital signs. Portions of the physical examination were assisted by the medical claims manager as instructed during the audiovisual telemedicine visit. Patient consented to telemed visit. Patient is a 54-year-old female who presents to the clinic today for follow-up evaluation/margarita atment of chronic pain. Reports recent diagnosis with lung cancer Stage IV. Reports cancer has spread to her spince and ribs. She will be starting radiation for comfort to shrink some of the masses, but no treatment. She states that oncology/Hospi ce is going to take over her pain meds soon, so she will likely not be returning. Medications currently provide 60% relief of pain with no reported side effects. Follow up in 2 months or sooner if needed. 11/13/2024 Radiculopathy, cervicothoracic region (ICD-10 - M54.13) 09/18/24 The patient presents to the [facility] office in [place], [place] for an audiovisual-te lemedicine visit via [employer].The patient was evaluated by the medical claims manager and a urine drug screen was obtained as well as vital signs. Portions of the physical examination were assisted by the medical claims manager as instructed during the audiovisual telemedicine visit. Patient consented to telemed visit. Patient is a 54-year-old female who presents to the clinic today for follow-up evaluation/margarita atment of chronic pain. Reports recent diagnosis with lung cancer Stage IV. Reports cancer has spread to her spince and ribs. She will be starting radiation for comfort to shrink some of the masses, but no treatment. She states that oncology/Hospi ce is going to take over her pain meds soon, so she will likely not be returning. Medications currently provide 60% relief of pain with no reported side effects. Follow up in 2 months or sooner if needed. 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 Portions of the physical examination were assisted by the medical claims manager as instructed during the audiovisual telemedicine visit. Patient consented to telemed visit. Patient is a 54-year-old female who presents to the clinic today for follow-up evaluation/margarita atment of chronic pain. Reports recent diagnosis with lung cancer Stage IV. Reports cancer has spread to her spince and ribs. She will be starting radiation for comfort to shrink some of the masses, but no treatment. She states that oncology/Hospi ce is going to take over her pain meds soon, so she will likely not be returning. Medications currently provide 60% relief of pain with no reported side effects. Follow up in 2 months or sooner if needed. 11/13/2024 Neuralgia and neuritis, unspecified (ICD-10 - M79.2) 09/18/24 The patient presents to the [facility] office in [place], [place] for an audiovisual-te lemedicine visit via [employer].The patient was evaluated by the medical claims manager and a urine drug screen was obtained as well as vital signs. Portions of the physical examination were assisted by the medical claims manager as instructed during the audiovisual telemedicine visit. Patient consented to telemed visit. Patient is a 54-year-old female who presents to the clinic today for follow-up evaluation/margarita atment of chronic pain. Reports recent diagnosis with lung cancer Stage IV. Reports cancer has spread to her spince and ribs. She will be starting radiation for comfort to shrink some of the masses, but no treatment. She states that oncology/Hospi ce is going to take over her pain meds soon, so she will likely not be returning. Medications currently provide 60% relief of pain with no reported side effects. Follow up in 2 months or sooner if needed. 11/13/2024 Chronic pain syndrome (ICD-10 - G89.4) 09/18/24 The patient presents to the [facility] office in [place], [place] for an audiovisual-te lemedicine visit via [employer].The patient was evaluated by the medical claims manager and a urine drug screen was obtained as well as vital signs. Portions of the physical examination were assisted by the medical claims manager as instructed during the audiovisual telemedicine visit. Patient consented to telemed visit. Patient is a 54-year-old female who presents to the clinic today for follow-up evaluation/margarita atment of chronic pain. Reports recent diagnosis with lung cancer Stage IV. Reports cancer has spread to her spince and ribs. She will be starting radiation for comfort to shrink some of the masses, but no treatment. She states that oncology/Hospi ce is going to take over her pain meds soon, so she will likely not be returning. Medications currently provide 60% relief of pain with no reported side effects. Follow up in 2 months or sooner if needed. 11/13/2024 Radiculopathy, thoracic region (ICD-10 - M54.14) 09/18/24 The patient presents to the [facility] office in [place], [place] for an audiovisual-te lemedicine visit via [employer].The patient was evaluated by the medical claims manager and a urine drug screen was obtained as well as vital signs. Portions of the physical examination were assisted by the medical claims manager as instructed during the audiovisual telemedicine visit. Patient consented to telemed visit. Patient is a 54-year-old female who presents to the clinic today for follow-up evaluation/margarita atment of chronic pain. Reports recent diagnosis with lung cancer Stage IV. Reports cancer has spread to her spince and ribs. She will be starting radiation for comfort to shrink some of the masses, but no treatment. She states that oncology/Hospi ce is going to take over her pain meds soon, so she will likely not be returning. Medications currently provide 60% relief of pain with no reported side effects. Follow up in 2 months or sooner if needed. 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 Refill GBP 600mg TID 2. Refill Tizanidine 4mg TID 3. Refill Amitriptyline 25mg QHS 4. Refill lidocaine 5% 1 patch daily 5. Reviewed Narcotic Agreement policies, specifically stressed a) pain medication from one provider only b) no illegal drug use c) take pain medication as prescribed, follow directions. 6. Follow up in 2 months Pending Test Test Name Order Date Urine Test ANALYZER 11/13/2024 Next Appt Details Follow Up: 2 Months, Reason: Procedure Notes * Category Sub-Category Detail Notes PROVIDER ENCOUNTER AND OVERSIGHT Consult Performed By: Aimee)Mini 09/18/2024 12:50:12 PM > collaborated treatment plan with Connor richards M.D., supervising physician Progress Notes * Erinn PETTY LDOB:1970 (55 yo F)Acc No.[id number]:11/13/2024 FollowUP Patient: Erinn KING Provider: Luh Page II, M.D. :1970 A ge:54 Y S ex:Female Date:11/13/2024 Address:[address] [place], [id number] Subjective: * Chief Complaints: * 1 . Upper Back Pain. 2. Mid Back Pain. * HPI: T ODAYS PAIN EVALUATION: 54 year old female presents with c/o MEDICATION FOLLOW UP: T he patient is currently prescribed GBP 600mg TID, which provides 60% relief of pain symptoms for 3 hours. The last dose was taken 09/18/2024 Denies any side effects.. CURRENT PAIN SYMPTOMS: L ocation of Worst Pain: M id-Back upper back, P ain Frequency: u sually, P ain Description: b urning, sharp, numb,?Average Pain Score VAS: 6 , P ain Exacerbation: movement, P ain Alleviation: medications not doing activites, A DL/Quality of Life Interference: Housework. P ERTINENT INFORMATION: Michelle joshua was diagnosed with stage 4 lung cancer. P AIN MANAGEMENT TREATMENT HISTORY: IMAGING HISTORY: [...] . P REVIOUS PAIN CLINIC CARE: [facility] . S KARTIK OF INITIAL EVALUATION: [...] touch in that area. Former pt of [facility]. Pt self discharged due to wanting to come off the pain medicaiton because they werent helping much and she felt like she was bcoming addicted. Denies bowel or bladder incontinence. Denies saddle anesthesia. Nature: aching Associated Symptoms: abdominal pain. C OMPLIANCE: RISK ASSESSMENT AND STRATIFICATION: R ISK GROUP: HIGH RISK, h/o opioid dependence on suboxone . U RINE DRUG TESTIN 09/26/2023 Screen Expected Definitive Expected 0 12/18/2023 Screen Expected 0 02/15/2024 Screen Expected 1 08/20/2023 Screen Expected, Definitive Expected 0 09/18/2024 Screen Expected . M ONITORING: M orphine Equivalent (MME): [...] Deep Vein Thrombosis 2016 / managed by [facility] , GERD 2012 /managed by Dr.Dixie Arenas, Hypertension 2014/ managed by , lung cancer diagnosed 2024, managed by . * Surgical History: R T Carpal Tunnel Release / Dr.Dixie Arenas / (OP) 2004, [facility] / [facility]. * Hospitalization/Major [...] * Vitals: * Examination: G eneral Examination: Nurse/Coater Operator Insulation Board: David núñez (Brenda Galvan 09/18/2024 1:37:49 PM > . General Appearance: T he patient is alert and oriented and cooperative for evaluation. HEENT: unremarkable. Heart: r egular rate via radial pulse. Skin visible skin normal. T horacic Spine/Upper Back: Palpation: tenderness at the mid thoracic . ? Assessment: * Assessment: 1. 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 W edge compression fracture of T7-T8 vertebra, sequela - S22.060S 3 . R adiculopathy, cervicothoracic region - M54.13 4 . 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 N euralgia and neuritis, unspecified - M79.2 6 . C hronic pain syndrome - G89.4 7 . R adiculopathy, thoracic region - M54.14 09/18/24 The patient presents to the [facility] office in [place], [place] for an audiovisual-telemedicine visit via [employer].The patient was evaluated by the medical claims manager and a urine drug screen was obtained as well as vital signs. Portions of the physical examination were assisted by the medical claims manager as instructed during the audiovisual telemedicine visit. Patient consented to telemed visit. Patient is a 54-year-old female who presents to the clinic today for follow-up evaluation/treatment of chronic pain. Reports recent diagnosis with lung cancer Stage IV. Reports cancer has spread to her spince and ribs. She will be starting radiation for comfort to shrink some of the masses, but no treatment. She states that oncology/Hospice is going to take over her pain meds soon, so she will likely not be returning. Medications currently provide 60% relief of pain with no reported side effects. Follow up in 2 months or sooner if needed. Plan: * Treatment: * Procedures: Michelle SHORE ENCOUNTER AND OVERSIGHT: Consult Performed By: Alejandro crisostomo(INFECTION CONTROL PRACTITIONER-BG)Mini 09/18/2024 12:50:12 PM > . c ollaborated treatment plan with Luh Page M.D., supervising physician. * Follow Up: 2 Months * * Electronic signature of Ernesto Page II, M.D. on 05/01/2025 at 06:33 AM CDT Sign off status: Pending * Provider: Luh Page II, M.D. Date: 0 11/13/2024 Generated for Ginger tomlin/Felipe/Shaynesmitting on: 0 05/01/2025 06:33 AM CDT History and Physical Notes * [...] touch in that area. Former pt of [facility]. Pt self discharged due to wanting [...] for 1-2 months PREVIOUS PAIN CLINIC CARE: [facility] COMPLIANCE RISK ASSESSMENT AND STRATIFICATI ON: RISK GROUP: HIGH RISK, h/o opioid dependence on suboxone URINE DRUG TESTIN09/26/2023 Screen Expected Definitive Expected 12/18/2023 Screen Expected 02/15/2024 Screen Expected 06/20/2024 Screen Expected, Definitive Expected 09/18/2024 Screen Expected MONITORING: Morphine Equivalent (MME): 0 APPLE reviewed today and appropriate TESTING/RISK ASSESSMENTS ORT Score/Result: 5 ( Personal hx of substance abuse Prescription drugs) TODAYS PAIN EVALUATION MEDICATION FOLLOW UP: The patient is currently prescribed GBP 600mg TID, which provides 60% relief of pain symptoms for 3 hours. The last dose was taken 09/18/2024 Denies any side effects. CURRENT PAIN SYMPTOMS: Location of Worst Pain:: Mid-Back upper back Pain Frequency:: usually Pain Description:: burning, sharp, numb Average Pain Score VAS:: 6 Pain Exacerbation:: movement Pain Alleviation:: medications not doing activites ADL/Quality of Life Interference:: House work PERTINENT INFORMATION: Patient was diagn osed with stage 4 lung cancer Examination Category Sub-Category Detail Notes Category Not es General Examination HEENT: unremarkable Heart: regular rate via rad ial pulse General Appearance: The patient is alert and oriented and cooperative for evaluation Skin visible skin normal Nurse/Coater Operator Insulation Board: Anthony (Raad)Jose Manuel 09/18/2024 1:37:49 PM > Thoracic Spine/Upper Back Palpation: tenderness at t he mid thoracic
--- OUTSIDE RECORDS SUMMARY | 2024-12-09 12:00 | XMS_ITS ---
Author Organization [facility] Address [address] [place] [address] Care Team Providers Care Mirror Department Supervisor Name Role Phone Padmininatalia Connor GASCA Unavailable Kiana Wallace Mem Unavailable [...] Duration) Notes Start Date End Date Status ibuprofen 800 mg 1 tab(s) orally 3 ti mes a day 10/19/2022 Active potassium chloride 10 mEq 1 tab(s) orall y 2 times a day; Duration: 30 day(s) 07/21/2022 Active omeprazole 20 mg 1 cap(s) orally once a day; Duration: 30 day(s) 07/21/2022 Active predniSONE 20 mg 1 tab(s) orally once a day; Duration: 7 day(s) 09/14/2023 Active levothyroxine 137 mcg (0.137 mg) 1 tab(s) orally once a day; Duration: 30 day(s) 10/19/2022 Active montelukast 10 mg 1 tab(s) orally [...] month; Duration: 30 day(s) 07/21/2022 Activ e Lidocaine, Topical 5% 1 patch applied to pically once a day; Duration: 30 day(s) Active ZTlido 1.8% 1 patch applied topi esperanza once a day; Duration: 30 day(s) Active carvedilol 3.125 mg 1 tab(s) orally 2 ti mes a day; Duration: 30 day(s) 07/21/2022 Active azithromycin 250 mg 2 tablets on the day, then 1 tablet daily for 4 days 07/21/2022 Active alendronate 70 mg 1 tab(s) orally once a week; Duration: 28 day(s) 07/21/2022 Active Amitriptyline Hydrochloride 25 mg 1 tab(s) orally once a day (at bedtime); Duration: 30 day(s) Active TiZANidine Hydrochloride 4 mg 1 tab(s) orally every 8 hours; Duration: 30 day(s) Activ e gabapentin 600 mg 1 tab(s) orally 3 ti mes a day; Duration: 30 day(s) Active Encounters Encounter Location Date Provider Diagnosis [facility] [address] [place] [address] 12/09/2024 Connor Page 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 Z79.899 ; Wedge compression fracture of T7-T8 vertebra, sequela S22.060S ; Radiculopathy, cervicothoracic region M54.13 ; Spondylosis without myelopathy or radiculopathy, 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 Portions of the physical examination were assisted by the health care / medical job titles as instructed during the audiovisual telemedicine visit. [...] in 2 months or sooner if needed. 12/09/2024 Wedge compression fracture of T7-T8 vertebra, sequela (ICD-10 - S22.060S) 09/18/24 The patient presents to the [facility] office in [place], [place] for an audiovisual-te lemedicine visit via D[employer]imity.The patient was evaluated by the health care / medical job titles and a urine drug screen was obtained as well as vital signs. Portions of the physical examination were assisted by the health care / medical job titles as instructed during the audiovisual telemedicine visit. [...] in 2 months or sooner if needed. 12/09/2024 Radiculopathy, cervicothoracic region (ICD-10 - M54.13) 09/18/24 The patient presents to the [facility] office in [place], [place] for an audiovisual-te lemedicine visit via D[employer]imity.The patient was evaluated by the health care / medical job titles and a urine drug screen was obtained as well as vital signs. Portions of the physical examination were assisted by the health care / medical job titles as instructed during the audiovisual telemedicine visit. [...] in 2 months or sooner if needed. 12/09/2024 Spondylosis without myelopathy or radiculopathy, cervicothoracic region (ICD-10 - M47.813) 09/18/24 The patient presents to the [facility] office in [place], [place] for an audiovisual-te lemedicine visit via Doximity.The patient was evaluated by the health care / medical job titles and a urine drug screen was obtained as well as vital signs. Portions of the physical examination were assisted by the health care / medical job titles as instructed during the audiovisual telemedicine visit. [...] in 2 months or sooner if needed. 12/09/2024 Neuralgia and neuritis, unspecified (ICD-10 - M79.2) 09/18/24 The patient presents to the [facility] office in [place], [place] for an audiovisual-te lemedicine visit via Doximity.The patient was evaluated by the health care / medical job titles and a urine drug screen was obtained as well as vital signs. Portions of the physical examination were assisted by the health care / medical job titles as instructed during the audiovisual telemedicine visit. [...] in 2 months or sooner if needed. 12/09/2024 Chronic pain syndrome (ICD-10 - G89.4) 09/18/24 The patient presents to the [facility] office in [place], [place] for an audiovisual-te lemedicine visit via D[employer]imity.The patient was evaluated by the health care / medical job titles and a urine drug screen was obtained as well as vital signs. Portions of the physical examination were assisted by the health care / medical job titles as instructed during the audiovisual telemedicine visit. [...] in 2 months or sooner if needed. 12/09/2024 Radiculopathy, thoracic region (ICD-10 - M54.14) 09/18/24 The patient presents to the [facility] office in [place], [place] for an audiovisual-te lemedicine visit via Doximity.The patient was evaluated by the health care / medical job titles and a urine drug screen was obtained as well as vital signs. Portions of the physical examination were assisted by the health care / medical job titles as instructed during the audiovisual telemedicine visit. 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 Refill GBP [...] Test Name Order Date Urine Test ANALYZER 12/09/2024 Next Appt Details Follow Up: 2 Months, Reason: Procedure Notes * Category Sub-Category Detail Notes PROVIDER ENCOUNTER AND OVERSIGHT Consult Performed By: Aimee)Mini 09/18/2024 12:50:12 PM > collaborated treatment plan with Connor richards M.D., supervising physician Progress Notes * Erinn PETTY LDOB:1970 (55 yo F)Acc No.[id number]:12/09/2024 FollowUP Patient: Erinn KING Provider: Luh Page II, M.D. :1970 A ge:54 Y S ex:Female Date:12/09/2024 Address:[address] [place], [id number] Subjective: * Chief Complaints: * 1 . [...] CLINIC CARE: [facility] . S UMMARY OF INITIAL EVALUATION: 0 12/27/2019-new patient consult [...] touch in that area. Former pt of [facility]. Pt self discharged due to wanting [...] Deep Vein Thrombosis 2016 / managed by [facility] , GERD 2012 /managed by Dr.Dixie Arenas, Hypertension 2014/ managed by , lung cancer diagnosed 2024, managed by . * Surgical History: R T Carpal Tunnel Release / Dr.Dixie Arenas / (OP) 2004, Hysterectomy / [facility] / 1 week stay 1995. * Hospitalization/Major Diagno stic Procedure: D enies Past Hospitalization. * Family History: N on-Contributory. Denies Family History of Substance Abuse. * Social History: S moking: yes C igarettes 1 PPD . P ersonal History Drug Use: No, Denies. Alcohol: No, Denies. * Medications: T aking gabapentin 600 mg tablet 1 tab(s) orally [...] applied topically once a day , Taking alendronate 70 mg tablet 1 tab(s) orally [...] 1 tab(s) orally once a day , Medication List reviewed and reconciled with the patient * Allergies: c efaclor: hives - Allergy, sulfamethoxazole: hives - Allergy, trimethoprim: rash - Allergy. Objective: * Vitals: * Examination: G eneral Examination: Nurse/Licensed Customs Broker: David núñez (MA-[facility])Brenda 09/18/2024 1:37:49 PM > . General Appearance: T he patient is alert and oriented and cooperative for evaluation. HEENT: unremarkable. Heart: r egular rate via radial pulse. Skin visible skin normal. T horacic Spine/Upper Back: Palpation: tenderness at the mid thoracic . ? Assessment: * Assessment: 1. O ther [facility] (current) drug therapy - Z79.899 (Primary) 2 [...] M54.14 09/18/24 The patient presents to the [facility] office in [place], [place] for an audiovisual-telemedicine visit via [employer].The patient was evaluated by the health care / medical job titles and a urine drug screen was obtained as well as vital signs. Portions of the physical examination were assisted by the health care / medical job titles as instructed during the audiovisual telemedicine visit. [...] ENCOUNTER AND OVERSIGHT: Consult Performed By: Alejandro crisostomo(CERTIFIED RESIDENTIAL MEDICATION AIDE-BG)Mini 09/18/2024 12:50:12 PM > . c ollaborated treatment plan with Luh Page M.D., supervising physician. * Follow Up: 2 Months * * Electronic signature of Ernesto Page II, M.D. on 05/01/2025 at 06:35 AM CDT Sign off status: Pending * Provider: Luh Page II, M.D. Date: 0 12/09/2024 Generated for Ginger tomlin/Felipe/Oskar on: 0 05/01/2025 06:35 AM CDT History [...] touch in that area. Former pt of [facility]. Pt self discharged due to wanting [...] for 1-2 months PREVIOUS PAIN CLINIC CARE: [facility] COMPLIANCE RISK ASSESSMENT AND STRATIFICATI ON: [...] cooperative for evaluation Skin visible skin normal Nurse/Licensed Customs Broker: Anthony (MA-[facility])Jose Manuel 09/18/2024 1:37:49 PM > Thoracic Spine/Upper Back Palpation: tenderness at t he mid thoracic
--- OUTSIDE RECORDS SUMMARY | 2025-03-03 09:24 | XMS_ITS | Encounter Summary ---
Author Organization [facility] Address [address] [place] [address] Care Team Providers Care Break Off Worker Name Role Phone Kiana Arenas Primary Care Provider [phone] Grey Wu MD Unavailable [phone] Mini Cordova MD Unavailable [phone] Alonzo Ritter MD Unavailable Encounter Details Date Type Department Care Team (Latest Contact Info) Description 03/03/2025 9:24 AM EDT - 03/03/2025 11:59 PM EDT Hospital Encounter [facility] Radiation [id number] [place] [address] Discharge Disposition: Still a Patient Social History Tobacco Use Types Packs/Day Years Used Date Smoking Tobacco: Every Day Cigarettes 0.2 41.3 Started: 01/17/1984 Passive Smoke Exposure: Current Smokeless [...] 5 MM misc See administration instructions. 07/20/2021 Calcium + Vitamin D3 600-10 MG-MCG tablet [...] 30 (thirty) days. 11/05/2021 ergocalciferol 1.25 MG (70385 UT) capsule Take 1 capsule (50,000 Units) [...] HFA 108 (90 Base) MCG/ACT inhaler 11/05/2021 Roflumilast 250 MCG tablet Take 1 tablet (250 mcg) by mouth 1 (one) time each day. 28 tablet 11 02/28/2024 rOPINIRole (Requip) 0.25 MG tablet Take 1 tablet (0.25 mg) by mouth nightly. 01/12/2023 Slow Release Iron 45 MG tablet controlled-relea se Take 1 tablet by mouth in the morning. 11/05/2021 Trelegy Ellipta 100-62.5-25 MCG/ACT aerosol powder Inhale 1 puff. 05/17/2024 amitriptyline (Elavil) 25 MG tabletIndication s:Chronic pain syndrome Take 1 tablet by mouth nightly. 30 tablet 2 02/05/2025 03/05/20 buprenorphine (Butrans) 15 MCG/HRIndication s:Cancer related pain,Chronic pain syndrome,Encount er for palliative care Place 1 patch on the skin 1 time per week over 168 hours. 4 patch 2 02/11/2025 04/09/20 25 formoterol (Perforomist) 20 MCG/2ML nebulizer solutionIndicati [...] daily. 60 tablet 1 01/22/2025 03/11/20 25 promethazine (Phenergan) 12.5 MG tabletIndication s:Encounter for palliative care,Nausea Take 1 tablet by mouth every 6 hours as needed for nausea or vomiting. 60 tablet 2 02/05/2025 04/30/20 25 revefenacin (Yupelri) 175 MCG/3ML nebulizer solutionIndicati ons:COPD, severe (CMS/HCC) Take 3 mL (175 mcg) by nebulization 1 (one) time each day. 90 mL 11 12/28/2023 03/04/20 25 tiZANidine (Zanaflex) 4 MG tablet 12/15/2024 04/09/20 25 documented as of this encounter Miscellaneous Notes * Progress Notes - Grey Wu MD - 03/05/2025 3:40 PM EDT Diagnosis: Primary C34.31 - Malignant neoplasm of lower lobe, right bronchus or lung, Diagnosed 10/02/2024 (Active) Date of Service: 03/05/2025 YARED NUNEZ received 1 of 5 scheduled Stereotactic [...] The patient tolerated treatment today. Therapist Initials: [email or web address] Therapist Initials: [email or web address] Other Clinic Staff Initials: Click or tap here to enter text. IMPRESSION: Today?s treatment was completed successfully. The treatment parameters were establishedwithout difficulty. This document was electronically approved by: Grey Wu MD. documented in this encounter Plan of Treatment Upcoming Encounters Date Type Department Care Team ([facility] Contact Info) Description 06/04/2025 10:00 AM EDT Clinical Support [facility] Hematology/BMT and Cellular Therapy Program [address] [address] 06/04/2025 10:30 AM EDT Office Visit [facility] Hematology/BMT and Cellular Therapy Program [address] [phone] Mini Cordova MD [address] [facility] [address] [place] [address] 07/07/2025 9:00 AM EST Office Visit Professional [facility] [address] [facility], [address] [place] [address] June Jensen MD [address] [place] [address] 07/14/2025 1:00 PM EST Appointment [facility] Radiation [address] [facility]. [id number] [place] [phone] Grey Wu MD [address] [facility] [facility] [address] [place] [address] 08/06/2025 11:15 AM EST [facility] Visit [facility] [address] [place] [address] Mickie Crocker DO [address] [place] [address] documented as of this encounter Visit Diagnoses Not on filedocumented in this encounter Additional Health Concerns Assessment Noted Time PHQ-9 Depression Total Score: 6 02/06/20 11:00 AM EDT A fall risk assessment has been complete d for the patient 01/20/2025 1:32 PM EDT A Body Mass Index follow-up plan has been documented for the patient 01/21/2025 3:27 PM EDT documented as of this encounter Care Teams Break Off Worker Relationship Specialty Start Date End Date Kiana Arenas PA [address] [facility] [place] [address] PCP - General 12/18/20 Grey Wu MD [address] [facility] [address] [place] [address] Consulting Physician Radiation Oncology 09/16/24 Mini Cordova MD [address] [place] [address] Consulting Physician Palliative Medicine 11/27/24 Alonzo Ritter MD [address] [place] [address] Consulting Physician Medical Oncology 11/27/24 documented as of this encounter
--- OUTSIDE RECORDS SUMMARY | 2025-03-05 09:15 | XMS_ITS | Encounter Summary ---
Author Organization [facility] Address [address] [place] [address] Care Team Providers Care [employer] Business [employer] Consultant Name Role Phone Kiana Arenas Primary Care Provider [phone] Grey Wu MD Unavailable [phone] Mini Cordova MD Unavailable [phone] Alonzo Ritter MD Unavailable Encounter Details Date Type Department Care Team (Latest Contact Info) Description 03/05/2025 9:15 AM EDT - 03/05/2025 11:59 PM EDT Hospital Encounter [facility] Radiation [id number] [place] [address] Discharge Disposition: Still a Patient Social History [...] 30 (thirty) days. 11/05/2021 ergocalciferol 1.25 MG (30233 UT) capsule Take 1 capsule (50,000 Units) [...] HFA 108 (90 Base) MCG/ACT inhaler 11/05/2021 revefenacin (Yupelri) 175 MCG/3ML nebulizer solutionIndicati ons:COPD, severe (CMS/HCC) Take 3 mL by nebulization daily. 90 mL 11 03/04/2025 Roflumilast 250 MCG tablet Take 1 tablet (250 mcg) by mouth 1 (one) time each day. 28 tablet 11 02/28/2024 rOPINIRole (Requip) 0.25 MG tablet Take 1 tablet (0.25 mg) by mouth nightly. 01/12/2023 Slow Release Iron 45 MG tablet controlled-relea se Take 1 tablet by mouth in the morning. 11/05/2021 Trelegy Ellipta 100-62.5-25 MCG/ACT aerosol powder Inhale 1 puff. 05/17/2024 amitriptyline (Elavil) 50 MG tablet Take 1 tablet by mouth nightly. 30 tablet 03/05/2025 04/09/20 25 buprenorphine (Butrans) 15 MCG/HRIndication s:Cancer related pain,Chronic pain syndrome,Encount er for palliative care Place 1 patch on the skin 1 time per week over 168 hours. 4 patch 2 02/11/2025 04/09/20 25 gabapentin (Neurontin) 600 MG tablet Take [...] vomiting. 60 tablet 2 02/05/2025 04/30/20 25 tiZANidine (Zanaflex) 4 MG tablet 12/15/2024 04/09/20 25 documented as of this encounter Plan of Treatment Upcoming Encounters Date Type Department Care Team ([facility] st Contact Info) Description 06/04/2025 10:00 AM EDT Clinical Support [facility] Hematology/BMT and Cellular Therapy Program [address] [place] [address] 06/04/2025 10:30 AM EDT Office Visit [facility] Hematology/BMT and Cellular Therapy Program [address] [place] [address] Mini Cordova MD [address] [facility] [address] [place] [address] 07/07/2025 9:00 AM EST Office Visit Professional [facility] [place] [address], [address] [place] [address] June Jensen MD [address] [place] [address] 07/14/2025 1:00 PM EST Appointment [facility] CC Radiation [id number] [place] [address] Grey Wu MD [address] [place] [address] 08/06/2025 11:15 AM EST Office Visit [facility] [address] [place] [address] Mickie Crocker, DO [address] [place] [address] documented as of this encounter [...] documented as of this encounter Care Teams Sap Business Objects Consultant Relationship Specialty Start Date End Date Kiana Aernas PA [address] [facility] [place] [address] PCP - General 12/18/20 Grey Wu MD [address] [place] [address] Consulting Physician Radiation Oncology 09/16/24 Mini Cordova MD [address] [facility] [address] [place] [address] Consulting Physician Palliative Medicine 11/27/24 Alonzo Ritter MD [address] [facility] Maria Del Rosario Lr [facility] [address] [place] [address] Consulting Physician Medical Oncology 11/27/24 documented as of this encounter"
--- OUTSIDE RECORDS SUMMARY | 2025-03-05 09:30 | XMS_ITS | Encounter Summary ---
Author Organization [facility] Address [address] [place] [address] Care Team Providers Care Lens Polisher Name Role Phone Kiana Arenas Primary Care Provider [phone] Grey Wu MD Unavailable [phone] Mini Cordova MD Unavailable [phone] Alonzo Ritter MD Unavailable Reason for Visit * Reason Comments Nurse Visit Encounter Details Date Type Department Care Team ([facility] st Contact Info) Description 03/05/2025 9:30 AM EDT Clinical Support [facility] Hematology/BMT and Cellular Therapy Program [address] [place] [address] [place] [address] Social History Tobacco Use Types Packs/Day Years [...] on file documented as of this encounter Plan of Treatment Upcoming Encounters Date Type Department Care Team ([facility] st Contact Info) Description 06/04/2025 10:00 AM EDT Clinical Support [facility] Hematology/BMT and Cellular Therapy Program [address] [facility] [place] [address] 06/04/2025 10:30 AM EDT Office Visit [facility] Hematology/BMT and Cellular Therapy Program [address] [facility] [place] [address] Mini Cordova MD [address] [facility] [address] [place] [address] 07/07/2025 9:00 AM EST Office Visit Professional [facility] [address] [facility], [address] [place] [address] June Jensen MD [address] [facility] [address] [place] [address] 07/14/2025 1:00 PM EST Appointment [facility] Radiation [address] [place] [address] Grey Wu MD [address] [facility] [address] [place] [address] 08/06/2025 11:15 AM EST Office Visit [facility] [address] [place] [address] Mickie Crocker DO [address] [place] [address] documented as of this encounter Visit Diagnoses [...] documented as of this encounter Care Teams Lens Polisher Relationship Specialty Start Date End Date Kiana Arenas PA [address] [place] [address] PCP - General 12/18/20 Grey Wu MD [address] [facility] [address] [place] [address] Consulting Physician Radiation Oncology 09/16/24 Mini Cordova MD [address] [place] [address] Consulting Physician Palliative Medicine 11/27/24 Alonzo Ritter MD [address]r [facility] [address] [place] [address] Consulting Physician Medical Oncology 11/27/24 documented as of this encounter
--- OUTSIDE RECORDS SUMMARY | 2025-03-05 10:00 | XMS_ITS | Encounter Summary ---
Author Organization Healthcare Address [address] [id number] Care Team Providers Care City Administrator Name Role Phone Kiana Arenas Primary Care Provider [phone] Grey Wu MD Unavailable [phone] Mini Mccormack MD Unavailable [phone] Alonzo Ritter MD Unavailable Reason for Referral * Consultation (Routine) - Authorized Specialty Diagnoses / Procedures Referred By Contac t Referred To Contact Blood and Marrow Transplant Diagnoses Squamous cell carcinoma of right lung Chantell Almaguer APRN, DNP [address] [place] [address] Phone: tel: fax: [facility] Hematology/BMT and Cellular Therapy Program 750 [facility], [address] [place] [address] [place] [address] Phone: tel: fax: Referral ID Status Reason Start Date Expiration Date Visits Requested Visits Authorized [id number] Authorized Specialty Services Required 03/05/2025 09/04/2026 1 1 Scheduling Instructions *Do Not Schedule* - This referral is for managing the [facility] Dietitian workflow. Reason for Visit * Reason Comments Palliative Care Follow-up Med Management Encounter Details Date Type Department Care Team ([facility] Contact Info) Description 03/05/2025 10:00 AM EDT Office Visit [facility] CC Hematology/BMT and Cellular Therapy Program 750 [facility], [address] [place] [address] Chantell Almaguer, VOCAL ARTIST, DNP [address] [place] [phone] Squamous cell carcinoma of right lung (Primary Dx); Chronic pain syndrome; Cancer related pain; Encounter for palliative care Social History Tobacco Use Types Packs/Day Years [...] on file documented as of this encounter Last Filed Vital Signs Vital Sign Reading Time Taken Comments Blood Pressure 140/83 03/05/2025 10:15 AM EDT Pulse 97 03/05/2025 9:58 AM EDT Temperature 36.4 C (97.5 F) 03/05/2025 9:58 AM EDT Respiratory Rate 16 03/05/2025 9:58 AM EDT Oxygen Saturation 91% 03/05/2025 9:58 AM EDT Inhaled Oxygen Concentration - - Weight 54.7 kg (120 lb 8 oz) 03/05/2025 9:58 AM EDT Height 165.1 cm (5' 5 ) 03/05/2025 9:58 AM EDT Body Mass Index 20.05 03/05/2025 9:58 AM EDT documented in this encounter Functional Status * Over the [...] or overeating Several days 03/05/2025 10:00 AM EDT Latonia Villanueva RN Feeling bad about yourself [...] usual. Not at all 03/05/2025 10:00 AM EDT Latonia Villanueva RN Thoughts that you would be better off or hurting yourself in some way Not at all 03/05/2025 10:00 AM DIXONT Latonia Villanueva RN Patient Health Questionnaire-9 Score 6 03/05/2025 10:00 AM DIXONT Latonia Villanueva RN documented as of this encounter Miscellaneous Notes * Clinician Note - Latonia Villanueva RN - 03/05/2025 10:00 AM EDT Palliative Nursing Note Last in-person Office Visit: 03/05/25 Medication Counts: The following controlled substances were manually counted by this RN in front of the patient and promptly returned to the patient upon completion. Medication Last Visit & Count RXs since last visit Total tabs Available Today's Count # tabs used Total Days Average Daily Use Prescribed Max Daily Dose Butrans 15mcg/hr 1 left weekly Percocet 7.5-325mg New fill 5 Gabapentin 600mg New fill 3 RN met with patient today in clinic. Reviewed ESAS and PHQ 2/9 questionnaires and vital signs. Updated fall risk, reviewed allergies and medications, and [...] your refill should be sent. Please Note: [facility] Messages are reviewed between the hours of 8:00am - 4:00pm Monday thru Monday.[employer] messages are not monitored outside of normal business hours. If you have not received a response from our clinic staff within 24-48 hours, please call us at [phone] and select option #1 and then option #4 to reach the palliative team. If this is an emergency, please go directly to the e mergency room or call 911. When calling about refills: Please call your pharmacy first, to confirm if there are refills available or future prescriptions waiting to be processed on the day the refill is due. If you have calledyour pharmacy and confirmed there are no refills or prescriptions available, please provide us withthe medication name, dose, and frequency you are taking them, along with how many pills you have rem aining. Thank you. * Progress Notes - Chantell Almaguer, VOCAL ARTIST, DNP - 03/05/2025 10:00 AM EDT Palliative Cancer Care Clinic Note for Erinn Nunez on 03/05/2025 Primary Oncologist: Alonzo Desai MD Primary Care [...] not a candidate for chemotherapy. Today she started her first of five fractions of radiation. She states her pain is controlled on current regimen but butrans patches are not staying on well. She spends most of the day in a chair. Isable to bath/wash off independently and sit and fold laundry. Has had a productive cough for the last week with dark yellow and periodic blood-tinged sputum. No increase in supplemental oxygen requirements. Reports low appetite and daughter is going to get her Boost to try. Nausea improved and usesphenergan as needed. One of her main concerns is periodic fidgeting and anxiety. Pain Score: 4 (Wants to discuss the pain patches because they aren't staying on well.) Tiredness Score: 6 Nausea Score: 1 Depression Score: 4 Anxiety Score: 4 Drowsiness Score: 4 Appetite Score: 3 Wellbeing Score: 4 Dyspnea Score: 6 Past Medical History[1] Current pain regimen: Butrans 15mcg patch on upper right chest Oxycodone/Acetaminophen 7.5/325 q 6 hours prn - [...] Medications[3] Family History[4] Review of Systems Constitutional: Positive for appetite change. Negative for fatigue. Respiratory: Positive for cough and shortness of breath. Gastrointestinal: Positive for nausea. Negative for constipation. Musculoskeletal: Positive for back pain (stable). Psychiatric/Behavioral: Depression: improved with pain control improved. The patient is nervous/anxious. PHYSICAL EXAM: Blood pressure (!) 140/83, pulse 97, temperature 36.4 ??C (97.5 ??F), temperature source Temporal, resp. rate 16, height 1.651 m (5' 5 ), weight 54.7 kg (120 lb 8 oz), SpO2 91%. - telemedicine visit Physical Exam Vitals reviewed. Constitutional: General: She is not in acute distress. Appearance: She is ill-appearing (chronically). She is not toxic-appearing or diaphoretic. Comments: Cachexia noted; in wheelchair; well groomed HENT: Head: Normocephalic. Right Ear: External ear normal. Left Ear: External ear normal. Nose: Comments: Wearing nasal cannula Eyes: General: No scleral icterus. Pulmonary: Effort: Pulmonary effort is normal. No respiratory distress. Musculoskeletal: General: No swelling. Skin: Coloration: Skin is not jaundiced. Neurological: General: No focal deficit present. Mental Status: She is alert and oriented to person, place, and time. Comments: Awake, alert, no dysarthria Psychiatric: Attention [...] yes. Safe medication disposal agreement signed yes. [id number] 02/03/2025 02/03/2025 oxyCODONE/Acetaminophen 70.0 14 7.5 MG/325.0 MG 56.25 Sanjana Carrera [id number] [facility] 1 [id number] 01/20/2025 01/20/2025 oxyCODONE/Acetaminophen 70.0 14 7.5 MG/325.0 MG 56.25 Sanjana Carrera [id number] [facility] 1 [id number] 01/17/2025 12/09/2024 Gabapentin 90.0 30 600 MG NA Mini Mccormack - [id number] [facility] Clinic Pharmacy [facility] 3 [id number] 01/14/2025 01/06/2025 Buprenorphine 4.0 28 0.015 MG/HR NA Megan Chance - [id number] [facility] Serviceful [facility] 1 [id number] 01/06/2025 01/06/2025 oxyCODONE/Acetaminophen 70.0 14 7.5 MG/325.0 MG 56.25 Megan Chance [facility] [id number] [facility] 1 Naloxone prescribed? No, previously prescribed and patient has at home Date of naloxone prescription: 09/30/2024 Date of naloxone education: N/A - Dr. Ritter prescribed date above ASSESSMENT: Erinn Nunez is a 54 y.o. woman with a squamous cell carcinoma of the right lung and end-stage COPD who is seen in the [facility] for symptom management. Her [...] of Illness - not discussed in detail 03/05/2025. She notes that she does not have significant insight into her prognosis from COPD. She notes that she has never discussed prognosis with her care teams before. She does note that her quality of life is most impacted by constant pain thathas worsened in past year. She is starting radiation for a total of 5 fractions. Will be staying at [facility] starting tomorrow evening 2. Chronic low back pain, chronic mid thoracic back pain and rib pain: improved/stable Back pain: Experienced for over 20 years. 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 -continue gabapentin 600mg PO TID - continue oxycodone/APAP 7.5-325 mg PO five times daily PRN pain - continue Butrans to 15 mcg/hr patch weekly - advised to place tegaderm over patch and given written information on how to properly place and cover patches. Also given short supply of tegaderm - counseled about OIC and medication adherence 3. Opioid-induced constipation: controlled; counseled as above - continue senna 2 tabs PO BID 4. Gold Stage 4 COPD requiring oxygen, Shortness of Air- - continue home oxygen - as above, Butrans, opioids for dyspnea - director of group counseling program about activity prioritization and energy conservation - eager for physical therapy and breathing exercises especially now that pain is better controlled -Advised to see PCP if cough does not improve or oxygen requirements increase 5. Anxiety: increase amitriptyline to 50mg PO at bedtime Erinn was seen today for palliative care follow-up and med management. Diagnoses and all orders for this visit: Squamous cell carcinoma of right lung - Ambulatory referral to [facility] Oncology Nutrition; Future Chronic pain syndrome Other orders - amitriptyline (Elavil) 50 MG tablet; Take 1 tablet by mouth nightly. FOLLOW UP: four weeks -- Coordinated with Palliative Care RN Latonia and Palliative Care clinical pharmacist Yamileth. Chantell Almaguer APRN, DNP Palliative Care Attending 03/05/2025 5:23 PM Medical Complexity Decision Making: Level 4 High [...] (CMS/HCC) 06/22/2016 Bursitis 08/22/2024 Reviewed records from [facility]. Synovial fluid culture negative for growth. Xray negative for acute bony abnormality. Cancer (CMS/HCC) 06/2025 Cardiac septal defect, acquired 01/24/2024 Cardiomegaly 05/27/2024 [...] (CMS/HCC) 02/16/2024 Raynaud's syndrome without gangrene 06/28/2024 Rheumatoid arthritis (CMS/HCC) Rotator cuff syndrome Sinus tachycardia 04/16/2024 Skin cancer 2020 or 2022 Smoking greater than 30 pack years 08/22/2024 [...] by mouth 1 (one) time per week. Aspirin Low Dose 81 MG EC tablet Take 1 tablet (81 mg) by mouth in the morning. B-D 3CC LUER-EDUARDO SYR 25GX1 25G X 1 3 ML misc B-D UF III MINI PEN NEEDLES 31G X 5 MM [facility] See administration instructions. buprenorphine (Butrans) 15 MCG/HR Place 1 patch on the skin 1 time per week over 168 hours. 4 patch2 Calcium + Vitamin D3 600-10 MG-MCG tablet [...] every 30 (thirty) days. ergocalciferol 1.25 MG (82142 UT) capsule Take 1 capsule (50,000 Units) by mouth 1 (one) time per week. estradiol (Estrace) 1 MG tablet Take 1 tablet (1 mg) by mouth in the morning. formoterol (Perforomist) 20 MCG/2ML nebulizer solution Take 2 mL by nebulization 2 times a day. 120mL 11 furosemide (Lasix) 40 MG tablet Take 1 tablet by mouth daily. gabapentin (Neurontin) 600 MG tablet Take 1 tablet by mouth 3 times a day. 90 tablet 2 hydrOXYzine pamoate (Vistaril) 25 MG capsule Take 1 capsule by mouth 3 times a day as needed for anxiety. ibuprofen 800 MG tablet Take 1 tablet [...] the morning. montelukast (Singulair) 10 MG tablet naloxone (Narcan) 4 mg/0.1 mL nasal spray 1. Give 1 spray in nostril for no/slow breathing or cannot wake after opioid use 2. Call 911 3. Repeat in other nostril if symptoms continue 1 each 0 omeprazole (PriLOSEC) [address] capsule (Patient taking differently: Take 1 capsule by mouth every morning.) oxyCODONE-acetaminophen (Percocet) 7.5-325 MG tablet Take 1 tablet by mouth 5 times a day as neededfor severe pain for up to 14 days. 70 tablet 0 phenazopyridine (Pyridium) 200 MG tablet Take 1 tablet (200 mg) by mouth as needed in the morning and 1 tablet (200 mg) as needed at noon and 1 tablet (200 mg) as needed in the evening. potassium chloride ER (Micro-K) 10 MEQ ER capsule Take 1 capsule by mouth daily. (Patient taking differently: Take 1 capsule by mouth 2 times a day.) predniSONE (Deltasone) 5 MG tablet Take 2 tablets by mouth daily. 60 tablet 1 ProAir HFA 108 (90 Base) MCG/ACT inhaler promethazine (Phenergan) 12.5 MG tablet Take 1 tablet by mouth every 6 hours as needed for nausea or vomiting. 60 tablet 2 revefenacin (Yupelri) 175 MCG/3ML nebulizer solution Take 3 mL by nebulization daily. 90 mL 11 rOPINIRole (Requip) 0.25 MG tablet Take 1 tablet (0.25 mg) by mouth nightly. Slow Release Iron 45 MG tablet controlled-release Take 1 tablet by mouth in the morning. tiZANidine (Zanaflex) 4 MG tablet Trelegy Ellipta 100-62.5-25 MCG/ACT aerosol powder Inhale 1 puff. amitriptyline (Elavil) 50 MG tablet Take 1 tablet by mouth nightly. 30 tablet 0 Roflumilast 250 MCG tablet Take 1 tablet (250 mcg) by mouth 1 (one) time each day. (Patient taking differently: Take 1 tablet by mouth nightly.) 28 tablet 11 No current facility-administered medications for this visit. [4] Family History Problem Relation Name Age of Onset COPD Mother Elise stevens Heart failure Mother Elise stevens Glaucoma Mother Elise hernandezcer Diabetes Mother Elise hernandezcer Arthritis Mother Elise hernandezcer 30 - 39 Heart disease Mother Elise hernandezcer 50 - 59 Miscarriages / Stillbirths Mother Elise hernandezcer 20 - 29 Rheumatologic disease Mother Elise hernandezcer 30 - 39 COPD Sister 3 sisters Thyroid disease Sister 3 sisters Hypertension Sister 3 sisters Diabetes Sister 3 sisters Cancer Sister 3 sisters 40 - 49 COPD Sister Diabetes Brother Stroke Brother documented in this encounter Plan of Treatment Upcoming Encounters Date Type Department Care Team (Late st Contact Info) Description 06/04/2025 10:00 AM EDT Clinical Support [facility] Hematology/BMT and Cellular Therapy Program [address] [place] [address] 06/04/2025 10:30 AM EDT Office Visit [facility] Hematology/BMT and Cellular Therapy Program [address] [place] [address] Mini Mccormack MD [address] [facility] [address] [place] [address] 07/07/2025 9:00 AM EST Office Visit Professional [facility] [address] [facility], [address] [place] [address] June Jensen MD [address] [facility] [address] [place] [address] 07/14/2025 1:00 PM EST Appointment P[facility] CC Radiation [address] [place] [address] Grey Wu MD 800 [facility] [address] [place] [address] 08/06/2025 11:15 AM EST Office Visit [place] [facility] Specialties [address] [place] [address] Mickie Crocker DO [address] [place] [address] Scheduled Referrals Name Type Priority Associated Diagnoses Order Schedule Ambulatory referral to [facility] Oncology Nutrition Outpatient Referral Routine Squamous cell carcinoma of right lung 1 Occurrences starting 03/05/2025 until 09/05/2026 documented as of this encounter Visit Diagnoses Diagnosis Squamous cell carcinoma of right lung- Primary Chronic pain syndrome Cancer related pain Encounter for palliative care documented in this encounter Additional Health Concerns Assessment Noted Time PHQ-9 Depression Total Score: 6 03/05/20 25 10:00 AM EDT A fall risk assessment has been complete d for the patient 01/20/2025 1:32 PM EDT A Body Mass Index follow-up plan has been documented for the patient 01/21/2025 3:27 PM EDT documented as of this encounter Care Teams City Administrator Relationship Specialty Start Date End Date Kiana Arenas PA [address] [place] [address] PCP - General 12/18/20 Grey Wu MD [address] [place] [address] Consulting Physician Radiation Oncology 09/16/24 Mini Mccormack MD [address] [facility] [address] [place] [address] Consulting Physician Palliative Medicine 11/27/24 Alonzo Ritter MD 800 [facility] [address] [place] [address] Consulting Physician Medical Oncology 11/27/24 documented as of this encounter
--- OUTSIDE RECORDS SUMMARY | 2025-03-07 09:29 | XMS_ITS | Encounter Summary ---
Author Organization [facility] Address [address] [place] [address] Care Team Providers Care Pluck Trimmer Name Role Phone Kiana Arenas Primary Care Provider [phone] Grey Wu MD Unavailable [phone] Mini Cordova MD Unavailable [phone] Alonzo Ritter MD Unavailable Encounter Details Date Type Department Care Team (Latest Contact Info) Description 03/07/2025 9:29 AM EDT - 03/07/2025 11:59 PM EDT Hospital Encounter [facility] [address] [id number] [place] [address] Discharge Disposition: Still a Patient Social History [...] 30 (thirty) days. 11/05/2021 ergocalciferol 1.25 MG (42663 UT) capsule Take 1 capsule (50,000 Units) [...] Upcoming Encounters Date Type Department Care Team ([facility] st Contact Info) Description 06/04/2025 10:00 AM EDT Clinical Support [facility] Hematology/BMT and Cellular Therapy Program [address] [place] [address] 06/04/2025 10:30 AM EDT Office Visit [facility] Hematology/BMT and Cellular Therapy Program [address] [place] [address] Mini Cordova MD [address] [place] [address] 07/07/2025 9:00 AM EST Office Visit [facility] [address], [address] [place] [address] June Jensen MD [address] [place] [address] 07/14/2025 1:00 PM EST Appointment [facility] [address] [id number] [place] [address] Grey Wu MD [address] [place] [address] 08/06/2025 11:15 AM EST [facility] [address] 2[address] [place] [address] Mickie Crocker DO [address] [place] [address] documented as of this encounter [...] documented as of this encounter Care Teams Pluck Trimmer Relationship Specialty Start Date End Date Kiana Arenas PA [address] [place] [address] PCP - General 12/18/20 Grey Wu MD [address] [place] [address] Consulting Physician Radiation Oncology 09/16/24 Mini Cordova MD [address] [facility] [address] [place] [address] Consulting Physician Palliative Medicine 11/27/24 Alonzo Ritter MD 800 [facility] [address] [place] [address] Consulting Physician Medical Oncology 11/27/24 documented as of this encounter
--- OUTSIDE RECORDS SUMMARY | 2025-03-10 03:25 | XMS_ITS | Encounter Summary ---
Author Organization [facility] Address [address] [place] [address] Care Team Providers Care Wood Boring Machine Operator Name Role Phone Kiana Arenas Primary Care Provider [phone] Grey Wu MD Unavailable [phone] Mini Cordova MD Unavailable [phone] Alonzo Ritter MD Unavailable Encounter Details Date Type Department Care Team (Latest Contact Info) Description 03/10/2025 3:25 AM EDT - 03/10/2025 11:59 PM EDT Hospital Encounter [facility] [address] [id number] [place] [address] Discharge Disposition: Still a Patient Social History [...] 30 (thirty) days. 11/05/2021 ergocalciferol 1.25 MG (51219 UT) capsule Take 1 capsule (50,000 Units) [...] tablet by mouth 3 times a day. 180 tablet 1 03/10/2025 03/12/20 25 oxyCODONE-acetam inophen (Percocet) 7.5-325 MG tabletIndication [...] Progress Notes - Grey Wu MD - 03/13/2025 12:16 PM EDT Diagnosis: Primary Z51.0 - Encounter for antineoplastic radiation therapy, Diagnosed 03/05/2025 (Active) Primary C34.31 - Malignant neoplasm of lower lobe, right bronchus or lung, Diagnosed 10/02/2024 (Active) Date of Service: 03/12/2025 YARED NUNEZ received 3 of 5 scheduled Stereotactic Body Radiation Treatment for their C34.31 - Malignant neoplasm of lower lobe, right bronchus or lung, Diagnosed 10/02/2024 (Active) on 03/12/2025 underthe direction of Grey Wu MD. The patient was immobilized in the stereotactic body frame utilizing a customized mold. Abdominal compression was used to decrease internal organ motion. The stereotactic dose of 1000 cGy was received without difficulty. The patient tolerated treatment today. Therapist Initials: Therapist Initials: AD/TH Other Clinic Staff Initials: Click or tap here to enter text. IMPRESSION: Today?s treatment was completed successfully. The treatment parameters were establishedwithout difficulty. This document was electronically approved by: Grey Wu MD. documented in this encounter Plan of Treatment Upcoming Encounters Date Type Department Care Team ([facility] Contact Info) Description 06/04/2025 10:00 AM EDT Clinical Support [facility] Hematology/BMT and Cellular Therapy Program [address] [phone] 06/04/2025 10:30 AM EDT Office Visit [facility] Hematology/BMT and Cellular Therapy Program [address] [phone] Mini Cordova MD [address] [facility] [address] [place] [address] 07/07/2025 9:00 AM EST Office Visit [facility] [address] [facility], [address] [place] [address] June Jensen MD [address] [place] [address] 07/14/2025 1:00 PM EST Appointment [facility] [address] [facility]. [id number] [place] [address] Grey Wu MD 800 [facility] [address] [place] [address] 08/06/2025 11:15 AM EST Office Visit [place] [facility] [address] [place] [address] ObiMickie DO [address] [place] [address] documented as of this encounter [...] documented as of this encounter Care Teams Wood Boring Machine Operator Relationship Specialty Start Date End Date Kiana Arenas PA [address] [place] [address] PCP - General 12/18/20 Grey Wu MD [address] [facility] [address] [place] [address] Consulting Physician Radiation Oncology 09/16/24 Mini Cordova MD [address] [place] [address] Consulting Physician Palliative Medicine 11/27/24 Alonzo Ritter MD [address] [facility] [address] [place] [address] Consulting Physician Medical Oncology 11/27/24 documented as of this encounter
--- OUTSIDE RECORDS SUMMARY | 2025-03-12 08:50 | XMS_ITS | Encounter Summary ---
Author Organization [facility] Address [address] [place] [address] Care Team Providers Care Engineer Soils Name Role Phone Kiana Arenas Primary Care Provider [phone] Grey Wu MD Unavailable [phone] Mini Cordova MD Unavailable [phone] Alonzo Ritter MD Unavailable Encounter Details Date Type Department Care Team (Latest Contact Info) Description 03/12/2025 8:50 AM EDT - 03/12/2025 11:59 PM EDT Hospital Encounter [facility] [address] [id number] [place] [address] Discharge Disposition: Still a Patient Social History [...] 30 (thirty) days. 11/05/2021 ergocalciferol 1.25 MG (71085 UT) capsule Take 1 capsule (50,000 Units) [...] Take 1 tablet by mouth daily. 01/05/2025 gabapentin (Neurontin) 600 MG tablet Take 1 tablet by mouth 3 times a day. 180 tablet 1 03/12/2025 hydrOXYzine pamoate (Vistaril) 25 MG capsule Take [...] Take 1 capsule by mouth daily. 12/03/2024 predniSONE (Deltasone) 5 MG tabletIndication s:Seropositive rheumatoid arthritis of multiple sites (CMS/HCC) Take 2 tablets by mouth daily. 180 tablet 03/11/2025 ProAir HFA 108 (90 Base) MCG/ACT inhaler [...] hours. 4 patch 2 02/11/2025 04/09/20 25 oxyCODONE-acetam inophen (Percocet) 7.5-325 MG tabletIndication [...] 14 days. 70 tablet 03/31/2025 03/17/20 25 promethazine (Phenergan) 12.5 MG tabletIndication s:Encounter for palliative care,Nausea Take 1 tablet by mouth every 6 hours as needed for nausea or vomiting. 60 tablet 2 02/05/2025 04/30/20 25 tiZANidine (Zanaflex) 4 MG tablet 12/15/2024 04/09/20 25 documented as of this encounter Plan of Treatment Upcoming Encounters Date Type Department Care Team ([facility] st Contact Info) Description 06/04/2025 10:00 AM EDT Clinical Support [facility] Hematology/BMT and Cellular Therapy Program [address] [place] [address] 06/04/2025 10:30 AM EDT Office Visit [facility] Hematology/BMT and Cellular Therapy Program 750 [facility], [address] [place] [address] [place] [address] Mini Cordova MD [address] [place] [address] 07/07/2025 9:00 AM EST Office Visit [facility] [address], [address] [place] [address] June Jensen MD [address] [place] [address] 07/14/2025 1:00 PM EST Appointment [facility] [address] [id number] [place] [address] Grey Wu MD [address] [place] [address] 08/06/2025 11:15 AM EST Office Visit [place] [facility] [address] [place] [address] Mickie Crocker, [address] [place] [address] documented as of this encounter Visit Diagnoses Not on filedocumented in this encounter Additional Health Concerns Assessment Noted Time PHQ-9 Depression Total Score: 6 03/05/ 25 10:00 AM EDT A fall risk assessment has been complete d for the patient 01/20/2025 1:32 PM EDT A Body Mass Index follow-up plan has been documented for the patient 01/21/2025 3:27 PM EDT documented as of this encounter Care Teams Engineer Soils Relationship Specialty Start Date End Date Kiana Arenas PA [address] [place] [address] PCP - General 12/18/20 Grey Wu MD [address] [place] [address] Consulting Physician Radiation Oncology 09/16/24 Mini Cordova MD [address] [facility] [address] [place] [address] Consulting Physician Palliative Medicine 11/27/24 Alonzo Ritter MD 800 [facility] [address] [place] [address] Consulting Physician Medical Oncology 11/27/24 documented as of this encounter
--- OUTSIDE RECORDS SUMMARY | 2025-03-17 03:25 | XMS_ITS | Encounter Summary ---
Author Organization [facility] Address [address] [place] [address] Care Team Providers Care Printed Circuit Boards Laminator Name Role Phone Kiana Arenas Primary Care Provider [phone] Grey Wu MD Unavailable [phone] Mini Cordova MD Unavailable [phone] Alonzo Ritter MD Unavailable Encounter Details Date Type Department Care Team (Latest Contact Info) Description 03/17/2025 3:25 AM EDT - 03/17/2025 11:59 PM EDT Hospital Encounter [facility] [id number] [place] [address] Discharge Disposition: Still a Patient Social History [...] 30 (thirty) days. 11/05/2021 ergocalciferol 1.25 MG (70282 UT) capsule Take 1 capsule (50,000 Units) [...] 14 days. 70 tablet 03/17/2025 03/31/20 25 amitriptyline (Elavil) 50 MG tablet Take 1 [...] up to 14 days. 70 tablet 03/31/2025 04/09/20 25 promethazine (Phenergan) 12.5 MG tabletIndication s:Encounter [...] was electronically approved by: Grey Wu MD. * Progress Notes - Grey Wu MD - 03/17/2025 11:59 PM EDT Diagnosis: Primary Z51.0 - Encounter for antineoplastic radiation therapy, Diagnosed 03/05/2025 (Active) Primary C34.31 - Malignant neoplasm of lower lobe, right bronchus or lung, Diagnosed 10/02/2024 (Active) Date of Service: 03/18/2025 Procedure: Stereotactic Body Radiation Therapy Indications: ERINN NUNEZ is a 55 old Female diagnosed with C34.31 - Malignant neoplasm of lower lobe, right bronchus or lung, Diagnosed 10/02/2024 (Active) (inoperable early stage lung cancer). Description of Procedure: The patient was placed on the Linear accelerator treatment table and all the treatment parameters were verified in conjunction with physicist. Immobilization was customized to patient utilizing the stereotactic body frame and abdominal compression to decrease internal organ motion. The tumor area was imaged for localization, tumor tracking, and any gating application as well. Real-time adjustments in response to patient motion, target movement ensuring accuracy and safety were made. ERINN NUNEZ received Stereotactic Body Radiation with a course of high dose per fraction hypofractionated radiation delivery, with the per treatment dose of 1000 cGy each for 4 fractions. Patient tolerated 4 fractions well. Plan: Plan to see patient back in Radiation Medicine for follow-up visit in 4 weeks. This document was electronically approved by: Grey Wu Cc: [facility] medical records documented in this encounter Plan of Treatment Upcoming Encounters Date Type Department Care Team (Late st Contact Info) Description 06/04/2025 10:00 AM EDT Clinical Support [facility] Hematology/BMT and Cellular Therapy Program [address] [facility], [address] [place] [address] 06/04/2025 10:30 AM EDT Office Visit [facility] Hematology/BMT and Cellular Therapy Program [address] [facility], [address] [place] [address] Mini Cordova MD [address] [place] [address] 07/07/2025 9:00 AM EST Office Visit [employer] [place] [facility] [address] [facility], [address] [place] [address] June Jensen MD [address] [facility] 3rd [address] [place] [address] 07/14/2025 1:00 PM EST Appointment [facility] [address] [place] [address] Grey Wu MD [address] [facility] [address] [place] [address] 08/06/2025 11:15 AM EST [facility] [address] 2nd [place] [address] Mickie Crocker DO [address] [place] [address] documented as of this encounter Visit Diagnoses [...] documented as of this encounter Care Teams Printed Circuit Boards Laminator Relationship Specialty Start Date End Date Kiana Arenas PA [address] [place] [address] PCP - General 12/18/20 Grey Wu MD [address] [facility] [address] [place] [address] Consulting Physician Radiation Oncology 09/16/24 Mini Cordova MD [address] [place] [address] Consulting Physician Palliative Medicine 11/27/24 Alonzo Ritter MD [address] [facility] [address] [facility] [facility] [address] [place] [address] Consulting Physician Medical Oncology 11/27/24 documented as of this encounter
--- OUTSIDE RECORDS SUMMARY | 2025-03-18 11:45 | XMS_ITS | Encounter Summary ---
Author Organization [facility] Address [address] [place] [address] Care Team Providers Care Ham Rolling Machine Operator Name Role Phone Kiana Arenas Primary Care Provider [phone] Grey Wu MD Unavailable [phone] Mini Cordova MD Unavailable [phone] Alonzo Ritter MD Unavailable Encounter Details Date Type Department Care Team (Latest Contact Info) Description 03/18/2025 11:45 AM EDT - 03/18/2025 11:59 PM EDT Hospital Encounter [facility] [id number] [place] [address] Discharge Disposition: Still a Patient Social History [...] 30 (thirty) days. 11/05/2021 ergocalciferol 1.25 MG (94219 UT) capsule Take 1 capsule (50,000 Units) [...] Encounters Date Type Department Care Team ([facility] st Contact Info) Description 06/04/2025 10:00 AM EDT Clinical Support [facility] Hematology/BMT and Cellular Therapy Program [address] [place] [address] 06/04/2025 10:30 AM EDT Office Visit [facility] Hematology/BMT and Cellular Therapy Program 750 [facility], [address] [place] [address] [place] [address] Mini Cordova MD [address] [place] [address] 07/07/2025 9:00 AM EST Office Visit [facility] Mineral Metabolism [address], [address] [place] [address] June Jensen MD [address] 3[address] [place] [address] 07/14/2025 1:00 PM EST Appointment [facility] [address] [id number] [place] [address] Grey Wu MD [address] [place] [address] 08/06/2025 11:15 AM EST [facility] Visit [facility] [address] 2nd [place] [address] Mickie Crocker, [address] [place] [address] documented as of this encounter [...] documented as of this encounter Care Teams Ham Rolling Machine Operator Relationship Specialty Start Date End Date Kiana Arenas PA [address] [place] [address] PCP - General 12/18/20 Grey Wu MD [address] [place] [address] Consulting Physician Radiation Oncology 09/16/24 Mini Cordova MD [address] [facility] [address] [place] [address] Consulting Physician Palliative Medicine 11/27/24 Alonzo Ritter MD 800 [facility] [address] [facility] [facility] [address] [place] [address] Consulting Physician Medical Oncology 11/27/24 documented as of this encounter
--- OUTSIDE RECORDS SUMMARY | 2025-04-09 09:00 | XMS_ITS | Encounter Summary ---
Author Organization [facility] Address [address] [place] [address] Care Team Providers Care Corrosion Technician Name Role Phone Kiana Arenas Primary Care Provider [phone] Grey Wu MD Unavailable [phone] Mini Cordova MD Unavailable [phone] Alonzo Ritter MD Unavailable Reason for Visit * Reason Comments Nurse Visit Encounter Details Date Type Department Care Team ([facility] st Contact Info) Description 04/09/2025 9:00 AM EDT Clinical Support [facility] Hematology/BMT and Cellular Therapy Program [address] [place] [address] [place] [address] Social History Tobacco Use Types Packs/Day Years Used Date Smoking Tobacco: Every Day Cigarettes 0.2 41.3 Started: 01/17/1984 Passive Smoke Exposure: Current Smokeless Tobacco: Never Comments:Smoking 2-3 cigaret sharyn daily Alcohol Use Standard Drinks/Week Comments Never 0 (1 standard drink = 0.6 oz pur e alcohol) PHQ-2 Answer Date Recorded Patient Health Questionnaire-2 Score 2 04/09/2025 PHQ-9 Answer Date Recorded Patient Health Questionnaire-9 Score 4 04/09/2025 AUDIT-C Answer Date Recorded Q1: How often [...] or pleasure in doing things Several days 04/09/2025 9:00 AM EDT Lesia Villanueva RN Feeling down, depressed, or hopeless Several days 04/09/2025 9:00 AM EDT Latonia Villanueva RN Patient Health Questionnaire-2 Score 2 04/09/2025 9:00 AM EDT Jeremy Villanueva RN * Question Answer Date of Assessment Author Trouble falling or staying asleep, or sleeping too much Not at all 04/09/2025 9:00 AM EDT Latonia Valladares RN Feeling tired or having little energy Several days 04/09/2025 9:00 AM EDT Latonia Villanueva RN Poor appetite or overeating Not at all 04/09/2025 9: 00 AM EDT Latonia Villanueva RN Feeling bad about yourself - or that you are a failure or have let yourself or your family down Several days 04/09/2025 9:00 AM DIXONT Latonia Villanueva RN Trouble concentrating on things, such as reading the newspaper or watching television Not at all 04/09/2025 9:00 AM DIXONT Latonia Villanueva RN Moving or speaking so slowly that other people could have noticed? Or the opposite - being so fidgety or restless that you have been moving around a lot more than usual. Not at all 04/09/2025 9:00 AM DIXONT Latonia Villanueva RN Thoughts that you would be better off or hurting yourself in some way Not at all 04/09/2025 9:00 AM DIXONT Latonia Villanueva RN Patient Health Questionnaire-9 Score 4 04/09/2025 9:00 AM EDT Jeremy Villanueva RN documented as of this encounter Plan of Treatment Upcoming Encounters Date Type Department Care Team (Late st Contact Info) Description 06/04/2025 10:00 AM EDT Clinical Support [facility] Hematology/BMT and Cellular Therapy Program [address] [facility] [place] [address] 06/04/2025 10:30 AM EDT Office Visit [facility] Hematology/BMT and Cellular Therapy Program [address] [facility] [place] [address] Mini Cordova MD [address] [place] [address] 07/07/2025 9:00 AM EST Office Visit [facility] [address] [facility], [address] [place] [address] June Jensen MD [address] [facility] [address] [place] [address] 07/14/2025 1:00 PM EST Appointment [facility] Radiation [id number] [place] [address] Grey Wu MD [address] [facility] [address] [place] [address] 08/06/2025 11:15 AM EST Office Visit [facility] [address] [place] [address] Mickie Crocker DO [address] [place] [address] documented as of this encounter Visit Diagnoses Not on filedocumented in this encounter Additional Health Concerns Assessment Noted Time PHQ-9 Depression Total Score: 4 04/09/20 25 9:00 AM EDT A fall risk assessment has been complete d for the patient 01/20/2025 1:32 PM EDT A Body Mass Index follow-up plan has been documented for the patient 01/21/2025 3:27 PM EDT documented as of this encounter Care Teams Corrosion Technician Relationship Specialty Start Date End Date Kiana Arenas PA [address] [place] [address] PCP - General 12/18/20 Grey Wu MD [address] [facility] [address] [place] [address] Consulting Physician Radiation Oncology 09/16/24 Mini Cordova MD [address] [place] [address] Consulting Physician Palliative Medicine 11/27/24 Alonzo Ritter MD [address] [facility] Maria Del Rosario Lr [facility] [address] [place] [address] Consulting Physician Medical Oncology 11/27/24 documented as of this encounter
--- OUTSIDE RECORDS SUMMARY | 2025-04-09 09:30 | XMS_ITS | Encounter Summary ---
Author Organization Healthcare Address [address] [place] [address] Care Team Providers Care Site Safety Representative Name Role Phone Kiana Arenas Primary Care Provider [phone] Grey Wu MD Unavailable [phone] Mini Cordova MD Unavailable [phone] Alonzo Ritter MD Unavailable Reason for Visit * Reason Comments Palliative Care Follow-up Med Management Encounter Details Date Type Department Care Team (Late st Contact Info) Description 04/09/2025 9:30 AM EDT Office Visit [facility] Hematology/BMT and Cellular Therapy Program [address] [place] [address] [place] [id number] Mini Cordova MD [address] [place] [address] Cancer related pain; Chronic pain syndrome; Encounter for palliative care Social History Tobacco Use Types Packs/Day Years Used Date Smoking Tobacco: Every Day Cigarettes 0.2 41.3 Started: 01/17/1984 Passive Smoke Exposure: Current Smokeless Tobacco: Never Comments:Smoking 2-3 cigaret sharyn daily Alcohol Use Standard Drinks/Week Comments Never 0 (1 standard drink = 0.6 oz pur e alcohol) PHQ-2 Answer Date Recorded Patient Health Questionnaire-2 Score 0 04/11/2025 PHQ-9 Answer Date Recorded Patient Health Questionnaire-9 Score 0 04/11/2025 AUDIT-C Answer Date Recorded Q1: How often [...] Sign Reading Time Taken Comments Blood Pressure 133/86 04/09/2025 9:39 AM EDT Pulse 97 04/09/2025 9:33 AM EDT Temperature 36.7 C (98 F) 04/09/2025 9:33 AM EDT Respiratory Rate 16 04/09/2025 9:33 AM EDT Oxygen Saturation 94% 04/09/2025 9:33 AM EDT Inhaled Oxygen Concentration - - Weight 54.9 kg (121 lb 0.5 oz) 04/09/2025 9:33 A M EDT Height 165.1 cm (5' 5 ) 04/09/2025 9:33 AM EDT Body Mass Index 20.14 04/09/2025 9:33 AM EDT documented in this encounter Functional Status * Over the past 2 weeks, how often have you been bothered by any of the following problems? Question Answer Date of Assessment Author Little interest or pleasure in doing things Not at all 04/11/2025 10:53 AM Avis Barreto A Feeling down, depressed, or hopeless Not at all 04/11/2025 10:53 AM Avis Barreto A Patient Health Questionnaire -2 Score 0 04/11/2025 10:53 AM Avis Barreto A * Question Answer Date of Assessment Author Trouble falling or staying asleep, or sleeping too much Not at all 04/11/2025 10:53 AM Avis Barreto A Feeling tired or having [place] energy Not at all 04/11/2025 10:53 AM Avis Barreto A Poor appetite or overeating Not at all 04/11/2025 10 :53 AM Avis Barreto A Feeling bad about yourself - or that you are a failure or have let yourself or your family down Not at all 04/11/2025 10:53 AM Avis Cruz Trouble concentrating on thi ngs, such as reading the newspaper or watching television Not at all 04/11/2025 10:53 AM Avis Barreto Moving or speaking so slowly that other people could have noticed? Or the opposite - being so fidgety or restless that you have been moving around a lot more than usual. Not at all 04/11/2025 10:53 AM Avis Barreto Thoughts that you would be better off or hurting yourself in some way Not at all 04/11/2025 10:53 AM Avis Barreto Patient Health Questionnaire -9 Score 0 04/11/2025 10:53 AM Avis Barreto * Calculated C-SSRS Risk Score (Lifetime/Recent) Answer Date of Assessment Author No Risk Indicated 04/11/2025 10:53 AM Avis Barreto * How difficult have these problems made it for you to do your work, take care of things at home, or get along with other people? Answer Date of Assessment Author Not difficult at all 04/11/2025 10:53 AM Avis Cruz * Question Answer Date of Assessment Author 1. Wish to be (Past 1 Month) No 025 10:53 AM Avis Barreto 2. Non-Specific Active Suici loc Thoughts (Past 1 Month) No 04/11/2025 10:53 AM Aileen Barreto 6. Suicidal Behavior (Lifetime) No 10:53 AM Avis Barreto documented as of this encounter Miscellaneous Notes * Clinician Note - Latonia Villanueva RN - 04/09/2025 9:30 AM EDT Palliative Nursing Note Last in-person Office Visit: 04/09/25 Medication Counts: Did not bring bottles to count Medication Last Visit & Count RXs since last visit Total tabs Available Today's Count # tabs used Total Days Average Daily Use Prescribed Max Daily Dose Butrans 15mcg/hr weekly Oxycodone/APAP 7.5-325mg 5 Gabapentin 600mg 3 Appointment Reminders: Please bring a list of any medication changes since your last visit. This includes over the countermedications. Please bring all pain medications with you to each visit to be counted. If scheduled for a telehealth appointment, please have pain medications counted prior to logging in. Please come prepared to each visit to submit a urine sample. Please call if your medications are not controlling your symptoms. DO NOT increase your medicine onyour own. For refills, please call with two days notice. Report how many tablets you have left and the pharmacy where your refill should be sent. RN met with patient today in clinic. Reviewed ESAS and PHQ 2/9 questionnaires and vital signs. Updated fall risk, reviewed allergies and medications, and patient history. Learning needs up to date. Please Note: [employer] Messages are reviewed between the hours of 8:00am - 4:00pm Monday thru Monday.[employer] messages are not monitored outside of normal business hours. If you have not received a response from our clinic staff within 24-48 hours, please call us at [phone] and select option #1 and then option [...] pills you have rem aining. Thank you. documented in this encounter Plan of Treatment Upcoming Encounters Date Type Department Care Team ([facility] st Contact Info) Description 06/04/2025 10:00 AM EDT Clinical Support [facility] Hematology/BMT and Cellular Therapy Program [address] [place] [phone] 06/04/2025 10:30 AM EDT Office Visit [facility] Hematology/BMT and Cellular Therapy Program [address] [place] [address] Mini Cordova MD [address] [place] [address] 07/07/2025 9:00 AM EST Office Visit [facility] [address], [address] [place] [address] June Jensen MD [address] [place] [address] 07/14/2025 1:00 PM EST Appointment [facility] [address] [place] [phone] Grey Wu MD [address] [facility] [address] [place] [address] 08/06/2025 11:15 AM EST Office Visit [facility] [address] [place] [address] Mickie Crocker DO [address] [place] [address] documented as of this encounter [...] documented as of this encounter Care Teams Site Safety Representative Relationship Specialty Start Date End Date Kiana Arenas PA [address] [place] [address] PCP - General 12/18/20 Grey Wu MD [address] [facility] [address] [place] [address] Consulting Physician Radiation Oncology 09/16/24 Mini Cordova MD [address] [facility] [address] [place] [address] Consulting Physician Palliative Medicine 11/27/24 Alonzo Ritter MD [address] [facility] [address] [place] [address] Consulting Physician Medical Oncology 11/27/24 documented as of this encounter
--- OUTSIDE RECORDS SUMMARY | 2025-04-11 10:46 | XMS_ITS | Encounter Summary ---
Author Organization Healthcare Address [address] [place] [address] Care Team Providers Care Sales Representative Supervisor Name Role Phone Kiana Arenas Primary Care Provider [phone] Grey Wu MD Unavailable [phone] Mini Cordova MD Unavailable [phone] Alonzo Ritter MD Unavailable Reason for Referral * Imaging (Routine) - Pending Review Specialty Diagnoses / Procedures Referred By Contsuzette t Referred To Contact Radiology Diagnoses Squamous cell carcinoma of right lung Procedures CT Chest w IV Contrast CT Chest w IV Contrast Anusha Martines APRN, DNP [address] [address] Phone: tel: fax: Referral ID Status Reason Start Date Expiration Date V isits Requested Visits Authorized [id number] Pending Review 04/11/2025 10/11/2026 1 1 Reason for Visit * Reason Comments Follow-up Encounter Details Date Type Department Care Team (Latest Contact Info) Description 04/11/2025 10:46 AM EDT - 04/11/2025 11:59 PM EDT Hospital Encounter [facility] [id number] [place] [address] Anusha Martines APRN, DNP [address] [place] [phone] Squamous cell carcinoma of right lung (Primary Dx) Discharge Disposition: Still a Patient [...] Sign Reading Time Taken Comments Blood Pressure 145/91 04/11/2025 10:55 AM EDT Pulse 109 04/11/2025 10:52 AM EDT Temperature - - Respiratory Rate 16 04/11/2025 10:52 AM EDT Oxygen Saturation 95% 04/11/2025 10:52 AM EDT Inhaled Oxygen Concentration - - Weight 54.9 kg (121 lb) 04/11/2025 10:52 AM EDT Height - - Body Mass Index 20.14 04/09/2025 9:33 AM EDT documented in this encounter Functional Status * Over the past 2 weeks, how often have you been bothered by any of the following problems? Question Answer Date of Assessment Author Little interest or pleasure in doing things Not at all 04/11/2025 10:53 AM DIXONT Avis Hanson Feeling down, depressed, or hopeless Not at all 04/11/2025 10:53 AM DIXONT Avis Hanson Patient Health Questionnaire -2 Score 0 04/11/2025 [...] at all 04/11/2025 10:53 AM Avis Cruz A Trouble concentrating on thi ngs, such as reading the newspaper or watching television Not at all 04/11/2025 10:53 AM Avis Barreto A Moving or speaking so slowly that other [...] AM Avis Barreto A Patient Health Questionnaire -9 Score 0 04/11/2025 10:53 AM Avis Barreto A * Calculated C-SSRS Risk Score (Lifetime/Recent) Answer Date of Assessment Author No Risk Indicated 04/11/2025 10:53 AM Avis Barreto * How difficult have these problems made it for you to do your work, take care of things at home, or get along with other people? Answer Date of Assessment Author Not difficult at all 04/11/2025 10:53 AM Avis Cruz A * Question Answer Date of Assessment Author 1. Wish to be (Past 1 Month) No 025 10:53 AM Avis Barreto 2. Non-Specific Active Suici loc Thoughts (Past 1 Month) No 04/11/2025 10:53 AM Aileen Barreto 6. Suicidal Behavior (Lifetime) No 10:53 AM Avis Barreto documented as of this encounter Medications at Time of Discharge albuterol (2.5 MG/3ML) 0.083% nebulizer solution 11/05/2021 alendronate (Fosamax) 70 MG tablet Take 1 tablet (70 mg) by mouth 1 (one) time per week. 11/05/2021 amitriptyline (Elavil) 50 MG tablet Take 1 tablet by mouth nightly. 30 tablet 1 04/09/2025 Aspirin Low Dose 81 MG EC tablet [...] per week over 168 hours. 4 patch 1 04/09/2025 Calcium + Vitamin D3 600-10 MG-MCG tablet Take 1 tablet by mouth in the morning. 11/05/2021 carisoprodol (Soma) 250 MG tablet Take 1 tablet by mouth daily as needed for muscle spasms. 30 tablet 1 04/09/2025 carvedilol (Coreg) 3.125 MG tablet Take 1 tablet (3.125 mg) by mouth in the morning and 1 tablet (3.125 mg) before bedtime. 11/05/2021 cholecalciferol (Vitamin D3) 25 MCG (1000 UT) tablet Take 1 tablet (1,000 Units) by mouth in the morning. 11/05/2021 cyanocobalamin (Vitamin B-12) 1000 MCG/ML injection 1 mL (1,000 mcg) every 30 (thirty) days. 11/05/2021 ergocalciferol 1.25 MG (40552 UT) capsule Take 1 capsule (50,000 Units) [...] capsule 11/05/2021 oxyCODONE-acetam inophen (Percocet) 7.5-325 MG tablet Take 1 tablet by mouth 5 times a day as needed for severe pain for up to 14 days. 70 tablet 04/28/2025 05/12/20 25 oxyCODONE-acetam inophen (Percocet) 7.5-325 MG tablet Take 1 tablet by mouth 5 times a day as needed for severe pain for up to 14 days. 70 tablet 05/12/2025 05/26/20 25 oxyCODONE-acetam inophen (Percocet) 7.5-325 MG tablet Take 1 tablet by mouth 5 times a day as needed for severe pain. 70 tablet 05/26/2025 phenazopyridine (Pyridium) 200 MG tablet Take 1 [...] 05/17/2024 oxyCODONE-acetam inophen (Percocet) 7.5-325 MG tabletIndication s:Cancer related pain,Chronic pain syndrome,Encount er for palliative care Take 1 tablet by mouth 5 times a day as needed for severe pain for up to 14 days. 70 tablet 04/14/2025 04/28/20 25 promethazine (Phenergan) 12.5 MG tabletIndication s:Encounter for palliative care,Nausea Take 1 tablet by mouth every 6 hours as needed for nausea or vomiting. 60 tablet 2 02/05/2025 04/30/20 25 documented as of this encounter Miscellaneous Notes * Addendum Note - Anusha Martines APRN, DNP - 04/11/2025 11:00 AM EDTEncounter addended by: Anusha Martines APRN, DNP on: 04/11/2025 12:38 PM Actions taken: Clinical Note Signed * Addendum Note - Anusha Martines APRN, DNP - 04/11/2025 11:00 AM EDTEncounter addended by: Anusha Martines APRN, DNP on: 04/11/2025 12:41 PM Actions taken: Order list changed, Diagnosis association updated, Clinical Note Signed * Progress Notes - Anusha Martines APRN, DNP - 04/11/2025 11:00 AM EDT [facility] RADIATION MEDICINE RADIATION ONCOLOGY FOLLOW UP NOTE Patient Name: Erinn Nunez Date of : 1970 Date of Service: 04/11/2025 Referring Physician: Alonzo Ritter MD Radiation Oncologist: Grey Wu MD Erinn Nunez is a 55 y.o. female with a history of Diagnosis and Cancer Staging Squamous cell carcinoma of right lung Staging form: Lung, AJCC 8th Edition - Clinical stage from 11/18/2024: Stage ZULMA (cT1a, cNX, cM1b) - Unsigned Ms. Nunez underwent the following radiation treatment listed below. DETAILS OF RADIATION TREATMENT: SBRT R Upper and L Lower Lung 5000 cGy in 4/5 fractions completed . Patient requested to end treatment before the the last fraction. She experienced no acute complications. Oncology History Squamous cell carcinoma of right lung 09/14/2024 Initial Diagnosis Squamous cell carcinoma of right lung 11/26/2024 - Radiation Therapy The patient saw Grey Wu MD for radiation treatment. This is the current list of radiation treatment: SBRT: Right Lung Treatment Period Fraction Dose Fractions Total Dose Course C1 12/17/2024-12/17/2024 (days elapsed: 0) Plans Planned SBRT lung RLL 12/17/2024-12/17/2024 1,000 cGy 5,000 cGy Reference Points Delivered SBRT lung RLL 12/17/2024-12/17/2024 -- -- 0 cGy Malignant neoplasm of lower lobe of right lung (CMS/HCC) 02/14/2025 Initial Diagnosis Malignant neoplasm of lower lobe of right lung (CMS/HCC) 03/04/2025 - Radiation Therapy The patient saw Grey Wu MD for radiation treatment. This is the current list of radiation treatment: No treatments are associated with the selected episodes (Radiation Therapy: Right Lung (03/04/2025)). 03/04/2025 - Radiation Therapy The patient saw Grey Wu MD for radiation treatment. This is the current list of radiation treatment: Radiation Therapy: Right Lung Treatment Period Fraction Dose Fractions Total Dose Course C1 - Actual Tx 03/05/2025-03/18/2025 (days elapsed: 13) Plans Planned RUL/RLL SBRT 03/05/2025-03/18/2025 1,000 cGy 4 / 5 5,000 cGy Reference Points Delivered RUL/RLL SBRT 03/05/2025-03/18/2025 -- -- 4,000 cGy Course IMRT QA 03/07/2025-03/07/2025 (days elapsed: 0) Plans Planned RUL/RLL SBRT 03/07/2025-03/07/2025 656 cGy 0 / 1 656 cGy SBRT lung RLL 03/07/2025-03/07/2025 751 cGy 0 / 1 751 cGy Reference Points Delivered Verification 03/07/2025-03/07/2025 -- -- 0 cGy Verification1 03/07/2025-03/07/2025 -- -- 0 cGy History of Present Illness Erinn Nunez has a history of NSCLC bx proven SqCC L Lung but no bx of RUL mass done d/t surgical risk. She was treated with the course of radiation therapy as described above and includes patient's oncologic history. Ms.Linda Nunez was last seen in clinic on 03/08/25 in stable condition with no unexpected radiation- induced toxicities noted. Today presents to clinic for a 1 month post-radiation follow-up visit. Interval History Erinn Nunez reports a hospitalization at local hospital where she lives admitted with PNA about 2 weeks ago that states she feels much better and has finished all of her oral antibiotics. She has COPD with chronic SOA with exertion and cough that remains at her baseline. Wears continuous oxygen 2 l/m NC. She is still smoking some. Eating and drinking without difficulty. Assessment/Plan Erinn Nunez presents in stable condition with no acute complaints. Lungs CTA throughout no WHZ or RH present. Wt stable. Educated on the need to stop smoking she reports that she is trying to stop and has cut back. States she does not follow Dr Ritter any longer. Will bring her back to see Dr Wu with imaging to assess treatment response. Follow up in [address] Wu plus imaging to assess treatment response. Orders Placed This Encounter Procedures CT Chest w IV Contrast 2. Continue to follow up with your scheduled providers. Future Appointments Date Time Provider Department Center 04/23/2025 11:10 AM Dunia Menard APRN [facility] 05/26/2025 9:00 AM June Jensen MD [facility] 06/04/2025 10:00 AM ARLEY MCARTHUR [facility] 06/04/2025 10:30 AM Mini Cordova MD [facility] 07/14/2025 1:00 PM Grey Wu MD [facility] 08/06/2025 11:15 AM Mickie Crocker DO [facility] Erinn Nunez verbalized understanding of visit discussion, education, and instructions. is in agreement with the plan of care listed above. Follow-up appointment information has been providedand can always be accessed via [employer]. Thank you for allowing us to take part in your care today. Please do not hesitate to contact our clinic if you have any questions or concerns at [phone] or through [employer]. A total of 30 minutes was spent preparing, performing an examination, counseling, educating the patient, and care coordination. Anusha Martines DNP, TECH WRITER, BOX BENDER-C Radiation Medicine DOYLE SUBJECTIVE DATA KPS: 90: Able to perform normal activity with only minor symptoms Allergies[1] Tobacco Use: High Risk (04/11/2025) Patient History Smoking Tobacco Use: Every Day Smokeless Tobacco Use: Never Passive Exposure: Current The patient has been counseled on tobacco cessation: Yes Past Medical History[2] Surgical History[2] Current Outpatient Medications Medication Sig albuterol (2.5 MG/3ML) 0.083% nebulizer solution alendronate (Fosamax) 70 MG tablet Take 1 tablet (70 mg) by mouth 1 (one) time per week. amitriptyline (Elavil) 50 MG tablet Take 1 tablet by mouth nightly. Aspirin Low Dose 81 MG EC tablet Take 1 tablet (81 mg) by mouth in the morning. B-D 3CC LUER-EDUARDO SYR 25GX1 25G X 1 3 ML misc B-D UF III MINI PEN NEEDLES 31G X 5 MM [facility] See administration instructions. buprenorphine (Butrans) 15 MCG/HR Place 1 patch on the skin 1 time per week over 168 hours. Calcium + Vitamin D3 600-10 MG-MCG tablet [...] every 30 (thirty) days. ergocalciferol 1.25 MG (24776 UT) capsule Take 1 capsule (50,000 Units) by mouth 1 (one) time per week. estradiol (Estrace) 1 MG tablet Take 1 tablet (1 mg) by mouth in the morning. formoterol (Perforomist) 20 MCG/2ML nebulizer solution Take 2 mL by nebulization 2 times a day. furosemide (Lasix) 40 MG tablet Take 1 tablet by mouth daily. gabapentin (Neurontin) 600 MG tablet Take 1 tablet by mouth 3 times a day. hydrOXYzine pamoate (Vistaril) 25 MG capsule Take [...] Repeat in other nostril if symptoms continue omeprazole (PriLOSEC) [address] capsule (Patient taking differently: Take 1 capsule by mouth every morning.) oxyCODONE-acetaminophen (Percocet) 7.5-325 MG tablet Take 1 tablet by mouth 5 times a day as neededfor severe pain for up to 14 days. phenazopyridine (Pyridium) 200 MG tablet Take 1 [...] tablet Take 2 tablets by mouth daily. ProAir HFA 108 (90 Base) MCG/ACT inhaler promethazine (Phenergan) 12.5 MG tablet Take 1 tablet by mouth every 6 hours as needed for nausea or vomiting. revefenacin (Yupelri) 175 MCG/3ML nebulizer solution Take 3 mL by nebulization daily. Roflumilast 250 MCG tablet Take 1 tablet (250 mcg) by mouth 1 (one) time each day. (Patient taking differently: Take 1 tablet by mouth nightly.) rOPINIRole (Requip) 0.25 MG tablet Take 1 tablet (0.25 mg) by mouth nightly. Slow Release Iron 45 MG tablet controlled-release Take 1 tablet by mouth in the morning. tiZANidine (Zanaflex) 4 MG tablet Trelegy Ellipta 100-62.5-25 MCG/ACT aerosol powder Inhale 1 puff. No current facility-administered medications for this visit. Review of Systems Constitutional: Negative. Negative for unexpected weight change. HENT: Negative. Respiratory: Positive for cough (chronic- improved) and shortness of breath (chronic with exertion). Negative for chest tightness, hemoptysis and wheezing. Cardiovascular: Negative. Gastrointestinal: Negative. Genitourinary: Negative. Musculoskeletal: Positive for arthralgias. Skin: Negative. Neurological: Negative. Hematological: Negative. Psychiatric/Behavioral: Negative. OBJECTIVE DATA: Visit Vitals BP (!) 145/91 Pulse 109 Wt 54.9 kg (121 lb) SpO2 95% BMI 20.14 kg/m?? Wt Readings from Last 10 Encounters: 03/05/25 54.7 kg (120 lb 8 oz) 01/20/25 54.4 kg (119 lb 14.9 oz) 01/20/25 54.7 kg (120 lb 9.5 oz) 12/18/24 54.3 kg (119 lb 11.4 oz) 11/27/24 54.8 kg (120 lb 13 oz) 10/25/24 53 kg (116 lb 13.5 oz) 10/21/24 53.7 kg (118 lb 6.2 oz) 10/17/24 53.6 kg (118 lb 2.7 oz) 10/14/24 53.1 kg (117 lb) 10/04/24 53.2 kg (117 lb 4.6 oz) Physical Exam Vitals reviewed. Constitutional: General: She is not in acute distress. Appearance: Normal appearance. She is normal weight. She is not ill-appearing or toxic-appearing. Cardiovascular: Rate and Rhythm: Normal rate. Pulmonary: Effort: Pulmonary effort is normal. No respiratory distress. Breath sounds: Normal breath sounds. No stridor. No wheezing, rhonchi or rales. Chest: Chest wall: No tenderness. Abdominal: General: Abdomen is flat. There is no distension. Musculoskeletal: General: No swelling. Normal range of motion. Skin: General: Skin is warm and dry. Findings: No lesion. Neurological: General: No focal deficit present. Mental Status: She is alert and oriented to person, place, and time. Mental status is at baseline. DIAGNOSTIC REPORTS REVIEWED: Now new studies for review PATHOLOGY AND LABORATORY RESULTS REVIEWED: No new studies for review [1] Allergies Allergen Reactions Cefaclor Hives, Itching, Other - please document in the comment field and Rash Caused a yeast infection Sulfamethoxazole-Trimethoprim Hives Sulfa Drugs Hives, Rash and Other - please document in the comment field Sulfamethoxazole Hives and Rash Morphine Other - please document in the comment field headaches Trimethoprim Rash [2] Past Medical History: Diagnosis Date Abnormal electrocardiogram (ECG) (EKG) 07/21/2024 Abnormal findings on diagnostic imaging of heart and coronary circulation 04/16/2024 Acute on chronic respiratory failure 08/22/2024 Acute vaginitis 09/13/2023 Age-related osteoporosis without current pathological fracture 06/28/2024 Allergic rhinitis 08/22/2024 Angina pectoris 01/29/2024 Anorexia 08/22/2024 Anxiety 08/22/2024 Atelectasis 05/17/2024 Bladder cancer (CMS/HCC) 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 Synovial fluid culture negative for [...] Polyneuropathy, unspecified 05/15/2024 Presbyopia 12/21/2023 Pseudomonas pneumonia ([facility]) 08/22/2024 Pulmonary hypertension, unspecified ([facility]) 02/16/2024 Raynaud's syndrome without gangrene 06/28/2024 Rheumatoid arthritis ([facility]) Rotator cuff syndrome Sinus tachycardia 04/16/2024 Skin cancer 2020 or 2022 Smoking greater than 30 pack years 08/22/2024 Spondylosis without myelopathy or radiculopathy, thoracic region 10/17/2023 Syncope and collapse 12/02/2023 Tobacco abuse counseling Tobacco abuse counseling Tobacco dependence 08/22/2024 Unexplained weight loss 08/22/2024 Urinary incontinence 08/22/2024 Varicose vein of leg 08/22/2024 Vitamin B12 deficiency 08/22/2024 Vitamin D deficiency 01/24/2024 Wheezing 11/17/2023 [2] Past Surgical History: Procedure Laterality Date CARPAL TUNNEL RELEASE CATARACT EXTRACTION W/ INTRAOCULAR LENS IMPLANT Bilateral 2020 [place] HYSTERECTOMY N/A Hysterectomy from [facility] WRIST CARPECTOMY N/A Wrist Carpectomy from [facility] documented in this encounter Plan of Treatment Upcoming Encounters Date Type Department Care Team (Late st Contact Info) Description 06/04/2025 10:00 AM EDT Clinical Support [facility] Hematology/BMT and Cellular Therapy Program [address] [facility] [place] [phone] 06/04/2025 10:30 AM EDT Office Visit [facility] Hematology/BMT and Cellular Therapy Program [address] [facility] [place] [address] Mini Cordova MD [address] [place] [phone] 07/07/2025 9:00 AM EST Office Visit [facility] [address], [address] [place] [address] June Jensen MD [address] [address] [place] [address] 07/14/2025 1:00 PM EST Appointment [facility] [id number] [place] [phone] Grey Wu MD [address] [place] [phone] 08/06/2025 11:15 AM EST Office Visit [place] [facility] [address] [place] [address] Mickie Crocker DO [address] [place] [phone] Scheduled Orders Name Type Priority Associated Diagnoses Orde r Schedule CT Chest w IV Contrast Imaging Routine Squamous cell carcinoma of right lung Expected: 07/11/2025 (Approximate), Expires: 10/09/2025 documented as of this encounter Visit Diagnoses Diagnosis Squamous cell carcinoma of right lung- Primary documented in this encounter Additional Health Concerns Assessment Noted Time PHQ-9 Depression Total Score: 0 04/11/20 25 10:53 AM EDT A fall risk assessment has been complete d for the patient 04/11/2025 10:53 AM EDT A Body Mass Index follow-up plan has been documented for the patient 01/21/2025 3:27 PM EDT documented as of this encounter Care Teams Sales Representative Supervisor Relationship Specialty Start Date End Date Kiana Arenas PA [address] [facility] [place] [address] PCP - General 12/18/20 Grey Wu MD [address] [facility] [address] [place] [address] Consulting Physician Radiation Oncology 09/16/24 Mini Cordova MD [address] [place] [address] Consulting Physician Palliative Medicine 11/27/24 Alonzo Ritter MD [address] [place] [address] Consulting Physician Medical Oncology 11/27/24 documented as of this encounter
[2025-05-01] VITALS (12 sets, daily range): BP systolic 142–152; BP diastolic 82–109; PULSE 55–124; RESP 15–26; TEMP 36.6–36.8; O2SAT 90–95; BMI 22.4
--- OUTSIDE RECORDS SUMMARY | 2025-05-01 07:33 | XMS_ITS | Encounter Summary ---
Author Organization [facility] Address [address] [place] [id number] Care Team Providers Care Geophysical Operator Name Role Phone Kiana Arenas Primary Care Provider [phone] Grey Wu MD Unavailable [phone] Mini Cordova MD Unavailable [phone] Alonzo Ritter MD Unavailable Encounter Details Date Type Department Care Team (Late st Contact Info) Description 03/17/2025 Telephone [facility] Hematology/BMT and Cellular Therapy Program [address] [place] [address] Megan Chance MD [address] [place] [phone] Social History Tobacco Use Types Packs/Day Years [...] team about patient's pain medication Callback number: [phone] documented in this encounter Plan of Treatment Upcoming Encounters Date Type Department Care Team ([facility] Contact Info) Description 06/04/2025 10:00 AM EDT Clinical Support [facility] Hematology/BMT and Cellular Therapy Program [address] [phone] 06/04/2025 10:30 AM EDT Office Visit [facility]ology/BMT and Cellular Therapy Program [address] [phone] Mini Cordova MD [address] [facility] [address] [place] [phone] 07/07/2025 9:00 AM EST Office Visit [facility] [address] [facility], [address] [place] [address] June Jensen MD [address] [facility] [address] [place] [address] 07/14/2025 1:00 PM EST Appointment [facility] [address] [facility] [place] [phone] Grey Wu MD [address] [facility] [address] [place] [phone] 08/06/2025 11:15 AM EST Office Visit [place] [facility] [address] [place] [address] Mickie Crocker DO [address] [place] [address] documented as of this encounter [...] documented as of this encounter Care Teams Geophysical Operator Relationship Specialty Start Date End Date Kiana Arenas PA [address] [place] [address] PCP - General 12/18/20 Grey Wu MD [address] [place] [address] Consulting Physician Radiation Oncology 09/16/24 Mini Cordova MD [address] [place] [address] Consulting Physician Palliative Medicine 11/27/24 Alonzo Ritter MD [address] [place] [address] Consulting Physician Medical Oncology 11/27/24 documented as of this encounter
--- OUTSIDE RECORDS SUMMARY | 2025-05-01 07:33 | XMS_ITS | Encounter Summary ---
Author Organization Healthcare Address [address] [place] [address] Care Team Providers Care Roof Cement And Paint Maker Helper Name Role Phone Kiana Arenas Primary Care Provider [phone] Grey Wu MD Unavailable [phone] Mini Cordova MD Unavailable [phone] Alonzo Ritter MD Unavailable Encounter Details Date [...] CC Hematology/BMT and Cellular Therapy Program 750 [facility], [address] [place] [address] 06/04/2025 10:30 AM EDT Office Visit [facility] Hematology/BMT and Cellular Therapy Program 750 [facility], [address] [place] [address] Mini Cordova MD [address] [place] [address] 07/07/2025 9:00 AM EST Office Visit [facility] [place] [facility] [address] [facility], [address] [place] [address] June Jensen MD [address] [facility] 3rd Fl [address] [place] [address] 07/14/2025 1:00 PM EST Appointment PAV CC Radiation [address] [id number] [place] [address] Grey Wu MD 800 [facility] [address] [place] [address] 08/06/2025 11:15 AM EST Office Visit [place] [facility] [address], 2nd [place] [address] Mickie Crocker DO [address] [place] [address] documented as of this encounter Visit Diagnoses [...] documented as of this encounter Care Teams Roof Cement And Paint Maker Helper Relationship Specialty Start Date End Date Kiana Arenas PA [address] [place] [address] PCP - General 12/18/20 Grey Wu MD 800 [facility] [address] [place] [address] Consulting Physician Radiation Oncology 09/16/24 Mini Cordova MD [address] [place] [address] Consulting Physician Palliative Medicine 11/27/24 Alonzo Ritter MD 800 [facility] Maria Del Rosario rL [facility] [address] [place] [address] Consulting Physician Medical Oncology 11/27/24 documented as of this encounter
--- OUTSIDE RECORDS SUMMARY | 2025-05-01 07:33 | XMS_ITS | Encounter Summary ---
Author Organization [facility] Address [address] [place] [address] Care Team Providers Care Tape Cutting Machine Operator Name Role Phone Kiana Arenas Primary Care Provider [phone] Grey Wu MD Unavailable [phone] Mini Cordova MD Unavailable [phone] Alonzo Ritter MD Unavailable Encounter Details Date Type Department Care Team (Late st Contact Info) Description 03/24/2025 Orders Only [facility] Radiation [address] [place] [address] Radiation Oncology, Physician, [address] [place] [address] Social History Tobacco Use Types Packs/Day [...] Upcoming Encounters Date Type Department Care Team ([facility] st Contact Info) Description 06/04/2025 10:00 AM EDT Clinical Support PAV CC Hematology/BMT and Cellular Therapy Program 750 [facility], [address] [place] [address] 06/04/2025 10:30 AM EDT Office Visit PAV CC Hematology/BMT and Cellular Therapy Program 750 [facility], [address] [place] [address] Mini Cordova MD [address] [facility] [address] [place] [address] 07/07/2025 9:00 AM EST Office Visit Professional [employer] [place] [facility] [address] [facility], [address] [place] [address] June Jensen MD [address] [facility] 3rd Fl [address] [place] [address] 07/14/2025 1:00 PM EST Appointment P[facility] Radiation [address] PE188K [place] [address] Grey Wu MD 800 [facility] [address] [place] [address] 08/06/2025 11:15 AM EST Office Visit [facility] [address], 2nd [place] [address] Mickie Crocker DO [address] [place] [address] documented as of this encounter Procedures Procedure [...] documented as of this encounter Care Teams Tape Cutting Machine Operator Relationship Specialty Start Date End Date Kiana Arenas PA [address] [place] [address] PCP - General 12/18/20 Grey Wu MD [address] [address] Consulting Physician Radiation Oncology 09/16/24 Mini Cordova MD [address] [facility] [address] [place] [address] Consulting Physician Palliative Medicine 11/27/24 Alonzo Ritter MD 800 [facility] Maria Del Rosario Lr [facility] [address] [place] [address] Consulting Physician Medical Oncology 11/27/24 documented as of this encounter
--- OUTSIDE RECORDS SUMMARY | 2025-05-01 07:33 | XMS_ITS | Encounter Summary ---
Author Organization Healthcare Address [facility] [place] [address] Care Team Providers Care Hospital Aide Name Role Phone Kiana Arenas Primary Care Provider [phone] Grey Wu MD Unavailable [phone] Mini Cordova MD Unavailable [phone] Alonzo Ritter MD Unavailable Encounter Details Date [...] Health Questionnaire-9 Score 6 03/05/2025 10:00 AM Latonia Ewing RN documented as of this encounter Plan of Treatment Upcoming Encounters Date Type Department Care Team ([facility] st Contact Info) Description 06/04/2025 10:00 AM EDT Clinical Support P[facility] CC Hematology/BMT and Cellular Therapy Program [address] [place] [address] [place] [address] 06/04/2025 10:30 AM EDT Office Visit [facility] Hematology/BMT and Cellular Therapy Program [address], [address] [place] [address] Mini Cordova MD [address] [place] [address] 07/07/2025 9:00 AM EST Office Visit [employer] [place] [facility] [address] [facility], [address] [place] [address] June Jensen MD [address] 3[address] [place] [address] 07/14/2025 1:00 PM EST Appointment [facility] Radiation [address] [id number] [place] [address] Grey Wu MD [address] [place] [address] 08/06/2025 11:15 AM EST Office Visit [place] [facility] [address], 2nd [place] [address] Mickie Crocker DO [address] [place] [address] documented as of this encounter [...] documented as of this encounter Care Teams Hospital Aide Relationship Specialty Start Date End Date Kiana Arenas PA [address] [place] [address] PCP - General 12/18/20 Grey Wu MD 800 [facility] [address] [place] [address] Consulting Physician Radiation Oncology 09/16/24 Mini Cordova MD [address] [facility] [address] [place] [address] Consulting Physician Palliative Medicine 11/27/24 Alonzo Ritter MD 800 [facility] Maria Del Rosario [address] [place] [address] Consulting Physician Medical Oncology 11/27/24 documented as of this encounter
--- OUTSIDE RECORDS SUMMARY | 2025-05-01 07:33 | XMS_ITS | Encounter Summary ---
Author Organization [facility] Address [address] [place] [address] Care Team Providers Care Fast Food Services Manager Name Role Phone Kiana Arenas Primary Care Provider [phone] Grey Wu MD Unavailable [phone] Mini Cordova MD Unavailable [phone] Alonzo Ritter MD Unavailable Encounter Details Date Type Department Care Team (Late st Contact Info) Description 03/18/2025 Orders Only [facility] CC Radiation [address] [id number] [place] [address] Radiation Oncology, Physician, [address] [place] [address] Social History Tobacco Use Types Packs/Day [...] Upcoming Encounters Date Type Department Care Team ([facility] st Contact Info) Description 06/04/2025 10:00 AM EDT Clinical Support PAV CC Hematology/BMT and Cellular Therapy Program 750 [facility], [address] [place] [address] 06/04/2025 10:30 AM EDT Office Visit PAV CC Hematology/BMT and Cellular Therapy Program 750 [facility], [address] [place] [address] Mini Cordova MD [address] [facility] [address] [place] [address] 07/07/2025 9:00 AM EST Office Visit Professional [employer] [place] [facility] [address] [facility], [address] [place] [address] June Jensen MD [address] [facility] 3rd Fl [address] [place] [address] 07/14/2025 1:00 PM EST Appointment [facility] CC Radiation [address] HB[address]N [place] [address] Grey Wu MD 800 [facility] [address] [place] [address] 08/06/2025 11:15 AM EST [facility] [address], 2nd [place] [address] Mickie Crocker DO [address] [place] [address] documented as of this encounter Procedures Procedure [...] documented as of this encounter Care Teams Fast Food Services Manager Relationship Specialty Start Date End Date Kiana Arenas PA [address] [place] [address] PCP - General 12/18/20 Grey Wu MD [address] [place] [address] Consulting Physician Radiation Oncology 09/16/24 Mini Cordova MD [address] [facility] [address] [place] [address] Consulting Physician Palliative Medicine 11/27/24 Alonzo Ritter MD 800 [facility] Maria Del Rosario [facility] [address] [place] [address] Consulting Physician Medical Oncology 11/27/24 documented as of this encounter
--- OUTSIDE RECORDS SUMMARY | 2025-05-01 07:33 | XMS_ITS | Encounter Summary ---
Author Organization [facility] Address [address] [place] [id number] Care Team Providers Care Tool Shaper Setup Operator Name Role Phone Kiana Arenas Primary Care Provider [phone] Grey Wu MD Unavailable [phone] Mini Cordova MD Unavailable [phone] Alonzo Ritter MD Unavailable Encounter Details Date Type Department Care Team (Late st Contact Info) Description 03/28/2025 Telephone [facility] [address] [place] [address] Radha Arreola, [place] [address] Social History Tobacco Use Types Packs/Day Years [...] 0 04/11/2025 10:53 AM Avis Barreto * Question Answer Date of Assessment Author [...] all 04/11/2025 10:53 AM Avis Barreto A Thoughts that you would be better off [...] Not difficult at all 04/11/2025 10:53 AM EDT [place] malinAvis * Question Answer Date of Assessment Author 1. Wish to be (Past 1 Month) No 025 10:53 AM EDT Avis Hanson 2. Non-Specific Active Suici loc Thoughts (Past 1 Month) No 04/11/2025 10:53 AM EDT Aileen Hanson 6. Suicidal Behavior (Lifetime) No 10:53 AM EDT Avis Hanson documented as of this encounter Plan of Treatment Upcoming Encounters Date Type Department Care Team ([facility] st Contact Info) Description 06/04/2025 10:00 AM EDT Clinical Support P[facility] CC Hematology/BMT and Cellular Therapy Program [address] [address] 06/04/2025 10:30 AM EDT Office Visit [facility] CC Hematology/BMT and Cellular Therapy Program [address] [address] Mini Cordova MD [address] [facility] [address] [place] [address] 07/07/2025 9:00 AM EST Office Visit Professional [employer] [place] [facility] [address] [facility], [address] [place] [address] June Jensen MD [address] [facility] 3rd Fl [address] [place] [address] 07/14/2025 1:00 PM EST Appointment P[facility] CC Radiation 800 [facility]. DB[address]T [place] [address] Grey Wu MD [address] [facility] [address] [place] [address] 08/06/2025 11:15 AM EST Office Visit [place] [facility] [address], 2nd [place] [address] Mickie Crocker DO [address] [place] [address] documented as of this encounter [...] documented as of this encounter Care Teams Tool Shaper Setup Operator Relationship Specialty Start Date End Date Kiana Arenas PA [address] [place] [address] PCP - General 12/18/20 Grey Wu MD [address] [facility] [address] [address] [place] [address] Consulting Physician Radiation Oncology 09/16/24 Mini Cordova MD [address] [place] [address] Consulting Physician Palliative Medicine 11/27/24 Alonzo Ritter MD 800 [facility] Maria Del Rosario Rebolledorickson [facility] [address] [place] [address] Consulting Physician Medical Oncology 11/27/24 documented as of this encounter
--- OUTSIDE RECORDS SUMMARY | 2025-05-01 07:33 | XMS_ITS | Encounter Summary ---
Author Organization [facility] Address [address] [place] [address] Care Team Providers Care Heddler Name Role Phone Kiana Arenas Primary Care Provider [phone] Grey Wu MD Unavailable [phone] Mini Cordova MD Unavailable [phone] Alonzo Ritter MD Unavailable Encounter Details Date Type Department Care Team (Late st Contact Info) Description 03/21/2025 Telephone [facility] Radiation [address] [place] [address] Grey Wu MD [address] [place] [address] Social History Tobacco Use Types [...] Upcoming Encounters Date Type Department Care Team ([facility] Contact Info) Description 06/04/2025 10:00 AM EDT Clinical Support PAV CC Hematology/BMT and Cellular Therapy Program [address] [place] [address] 06/04/2025 10:30 AM EDT Office Visit P[facility] CC Hematology/BMT and Cellular Therapy Program 750 [facility], [address] [place] [address] [place] [address] Mini Cordova MD [address] [facility] [address] [place] [address] 07/07/2025 9:00 AM EST Office Visit Professional [employer] [place] [facility] [address] [facility], [address] [place] [address] June Jensen MD [address] [facility] 3rd Fl [address] [place] [address] 07/14/2025 1:00 PM EST Appointment P[facility] CC Radiation 800 [facility]. CD[address]Z [place] [address] Grey Wu MD 800 [facility] [address] [place] [address] 08/06/2025 11:15 AM EST Office Visit [place] [facility] [address], 2nd [place] [address] Mickie Crocker DO [address] [place] [address] documented as of this encounter Visit Diagnoses [...] documented as of this encounter Care Teams Heddler Relationship Specialty Start Date End Date Kiana Arenas PA [address] [facility] [place] [address] PCP - General 12/18/20 Grey Wu MD [address] [facility] [address] [place] [address] Consulting Physician Radiation Oncology 09/16/24 Mini Cordova MD [address] [facility] [address] [place] [address] Consulting Physician Palliative Medicine 11/27/24 Alonzo Ritter MD [address] Maria Del Rosario [facility] [address] [place] [address] Consulting Physician Medical Oncology 11/27/24 documented as of this encounter
--- OUTSIDE RECORDS SUMMARY | 2025-05-01 07:33 | XMS_ITS | Encounter Summary ---
Author Organization Healthcare Address [address] [place] [address] Care Team Providers Care Straightener Gun Parts Name Role Phone Kiana Arenas Primary Care Provider [phone] Grey Wu MD Unavailable [phone] Mini Cordova MD Unavailable [phone] Alonzo Ritter MD Unavailable Encounter Details Date [...] CC Hematology/BMT and Cellular Therapy Program 750 [facility], [address] [place] [address] 06/04/2025 10:30 AM EDT Office Visit P[facility] CC Hematology/BMT and Cellular Therapy Program 750 [facility], [address] [place] [address] Mini Cordova MD [address] [place] [address] 07/07/2025 9:00 AM EST Office Visit [employer] [facility] [address] [facility], [address] [place] [address] June Jensen MD [address] [facility] 3rd Fl [address] [place] [address] 07/14/2025 1:00 PM EST Appointment P[facility] CC Radiation [address] [place] [address] Grey Wu MD 800 [facility] [address] [place] [address] 08/06/2025 11:15 AM EST Office Visit [place] [facility] [address], 2nd [place] [address] Mickie Crocker DO [address] [place] [address] documented as of this encounter Visit Diagnoses [...] documented as of this encounter Care Teams Straightener Gun Parts Relationship Specialty Start Date End Date Kiana Arenas PA [address] [place] [address] PCP - General 12/18/20 Grey Wu MD 800 [facility] [address] [place] [address] Consulting Physician Radiation Oncology 09/16/24 Mini Cordova MD [address] [place] [address] Consulting Physician Palliative Medicine 11/27/24 Alonzo Ritter MD 800 [facility] Maria Del Rosario Lr [facility] [address] [place] [address] Consulting Physician Medical Oncology 11/27/24 documented as of this encounter
--- OUTSIDE RECORDS SUMMARY | 2025-05-01 07:33 | XMS_ITS | Encounter Summary ---
Author Organization Healthcare Address [address] [place] [address] Care Team Providers Care Manager Fleet Name Role Phone Kiana Arenas Primary Care Provider [phone] Grey Wu MD Unavailable [phone] Mini Cordova MD Unavailable [phone] Alonzo Ritter MD Unavailable Encounter Details Date [...] 750 [facility], [address] [place] [address] 06/04/2025 10:30 AM EDT Office Visit [facility] CC Hematology/BMT and Cellular Therapy Program 750 [facility], [address] [place] [address] Mini Cordova MD [address] [place] [address] 07/07/2025 9:00 AM EST Office Visit [facility] [place] [facility] [address] [facility], [address] [place] [address] June Jensen MD [address] [facility] 3rd [address] [place] [address] 07/14/2025 1:00 PM EST Appointment PAV CC Radiation [address] [place] [address] Grey Wu MD 800 [facility] [address] [place] [address] 08/06/2025 11:15 AM EST Office Visit [place] [facility] [address], 2nd [place] [address] Micike Crocker DO [address] [place] [address] documented as of this encounter Visit Diagnoses [...] as of this encounter Care Teams Manager Fleet Relationship Specialty Start Date End Date Kiana Arenas PA [address] [place] [address] PCP - General 12/18/20 Grey Wu MD 800 [facility] [address] [place] [address] Consulting Physician Radiation Oncology 09/16/24 iMni Cordova MD [address] [place] [address] Consulting Physician Palliative Medicine 11/27/24 Alonzo Ritter MD 800 [facility] Maria Del Rosario Lr [facility] [address] [place] [address] Consulting Physician Medical Oncology 11/27/24 documented as of this encounter
--- OUTSIDE RECORDS SUMMARY | 2025-05-01 07:33 | XMS_ITS | Encounter Summary ---
Author Organization Healthcare Address [address] [place] [address] Care Team Providers Care Clinical Care Manager Name Role Phone Kiana Arenas Primary Care Provider [phone] Grey Wu MD Unavailable [phone] Mini Cordova MD Unavailable [phone] Alonzo Ritter MD Unavailable Encounter Details Date [...] CC Hematology/BMT and Cellular Therapy Program 750 [facility], [address] [place] [address] 06/04/2025 10:30 AM EDT Office Visit [facility] CC Hematology/BMT and Cellular Therapy Program 750 [facility], [address] [place] [address] Mini Cordova MD [address] [place] [address] 07/07/2025 9:00 AM EST Office Visit [employer] [place] [facility] [address] [facility], [address] [place] [address] June Jensen MD [address] [facility] 3rd Fl [address] [place] [address] 07/14/2025 1:00 PM EST Appointment P[facility] CC Radiation [address] [id number] [place] [address] Grey Wu MD 800 [facility] [address] [place] [address] 08/06/2025 11:15 AM EST Office Visit [place] [facility] [address], 2[address] [place] [address] Mickie Crocker DO [address] [place] [address] documented as of this encounter Visit Diagnoses [...] documented as of this encounter Care Teams Clinical Care Manager Relationship Specialty Start Date End Date Kiana Arenas PA [address] [place] [address] PCP - General 12/18/20 Grey Wu MD 800 [facility] [address] [place] [address] Consulting Physician Radiation Oncology 09/16/24 Mini Cordova MD [address] [place] [address] Consulting Physician Palliative Medicine 11/27/24 Alonzo Ritter MD 800 [facility] Maria Del Rosario Lr [facility] [address] [place] [address] Consulting Physician Medical Oncology 11/27/24 documented as of this encounter
--- OUTSIDE RECORDS SUMMARY | 2025-05-01 07:33 | XMS_ITS | Encounter Summary ---
Author Organization Healthcare Address [address] [place] [address] Care Team Providers Care Second Cook And Baker Name Role Phone Kiana Arenas Primary Care Provider [phone] Grey Wu MD Unavailable [phone] Mini Cordova MD Unavailable [phone] Alonzo Ritter MD Unavailable Encounter Details Date [...] CC Hematology/BMT and Cellular Therapy Program 750 [facility], [address] [place] [address] 06/04/2025 10:30 AM EDT Office Visit [facility] CC Hematology/BMT and Cellular Therapy Program 750 [facility], [address] [place] [address] Mini Cordova MD [address] [place] [address] 07/07/2025 9:00 AM EST Office Visit [facility] [place] [facility] [address] [facility], [address] [place] [address] June Jensen MD [address] [facility] [address]rd Fl [address] [place] [address] 07/14/2025 1:00 PM EST Appointment P[facility] CC Radiation [address] [place] [address] Grey Wu MD 800 [facility] [address] [place] [address] 08/06/2025 11:15 AM EST Office Visit [place] [facility] [address], [address]nd [place] [address] Mickie Crocker DO [address] [place] [address] documented as of this encounter Visit Diagnoses [...] documented as of this encounter Care Teams Second Cook And Baker Relationship Specialty Start Date End Date Kiana Arenas PA [address] [place] [address] PCP - General 12/18/20 Gery Wu MD 800 [facility] [address] [place] [address] Consulting Physician Radiation Oncology 09/16/24 Mini Cordova MD [address] [place] [address] Consulting Physician Palliative Medicine 11/27/24 Alonzo Ritter MD 800 [facility] Maria Del Rosario Lr [facility] [address] [place] [address] Consulting Physician Medical Oncology 11/27/24 documented as of this encounter
--- OUTSIDE RECORDS SUMMARY | 2025-05-01 07:33 | XMS_ITS | Encounter Summary ---
Author Organization [facility] Address [address] [place] [address] Care Team Providers Care Director Career Name Role Phone Kiana Arenas Primary Care Provider [phone] Grey Wu MD Unavailable [phone] Mini Cordova MD Unavailable [phone] Alonzo Ritter MD Unavailable Encounter Details Date Type Department Care Team (Late st Contact Info) Description 03/05/2025 Orders Only [facility] Radiation [id number] [place] [address] Radiation Oncology, Physician, [address] [place] [address] Social History Tobacco Use Types Packs/Day [...] & Healthcare Center st Contact Info) Description 06/04/2025 10:00 AM EDT Clinical Support [facility] Hematology/BMT and Cellular Therapy Program 750 [facility], [address] [place] [address] 06/04/2025 10:30 AM EDT Office Visit [facility] Hematology/BMT and Cellular Therapy Program 750 [facility], [address] [place] [address] Mini Cordova MD [address] [facility] [address] [place] [address] 07/07/2025 9:00 AM EST Office Visit [facility] [place] [facility] [address] [facility], [address] [place] [address] June Jensen MD [address] [facility] 3rd Fl [address] [place] [address] 07/14/2025 1:00 PM EST Appointment [facility] Radiation [id number] [place] [address] Grey Wu MD 800 [facility] [address] [place] [address] 08/06/2025 11:15 AM EST [facility] [address], 2nd [place] [address] Mickie Crocker DO [address] [place] [address] documented as of this encounter Procedures Procedure [...] as of this encounter Care Teams Director Career Relationship Specialty Start Date End Date Kiana Arenas PA [address] [place] [address] PCP - General 12/18/20 Grey Wu MD [address] [place] [address] Consulting Physician Radiation Oncology 09/16/24 Mini Cordova MD [address] [facility] [address] [place] [address] Consulting Physician Palliative Medicine 11/27/24 Alonzo Ritter MD 800 [facility] [address] [place] [address] Consulting Physician Medical Oncology 11/27/24 documented as of this encounter
--- OUTSIDE RECORDS SUMMARY | 2025-05-01 07:33 | XMS_ITS | Encounter Summary ---
Author Organization [facility] Address [address] [id number] Care Team Providers Care Spray Rig Operator Name Role Phone Kiana Arenas Primary Care Provider [phone] Grey Wu MD Unavailable [phone] Mini Cordova MD Unavailable [phone] Alonzo Ritter MD Unavailable Encounter Details Date Type Department Care Team (Late st Contact Info) Description 03/17/2025 Telephone [facility] Hematology/BMT and Cellular Therapy Program [address] [place] [address] Megan Chance MD 800 [place] [address] Social History Tobacco Use Types Packs/Day Years [...] Clinician Note - Latonia Villanueva RN - 03/17/2025 12:55 PM EDT RN attempted to reach patient. No answer and unable to leave VM. Will send GLSS message to follow up. documented in this encounter Plan of Treatment Upcoming Encounters Date Type Department Care Team ([facility] Contact Info) Description 06/04/2025 10:00 AM EDT Clinical Support [facility] Hematology/BMT and Cellular Therapy Program [address] [phone] 06/04/2025 10:30 AM EDT Office Visit [facility] Hematology/BMT and Cellular Therapy Program [address] [phone] Mini Cordova MD [address] [facility] [address] [place] [address] 07/07/2025 9:00 AM EST Office Visit [facility] [place] [facility] [address] [facility], [address] [place] [address] June Jensen MD [address] [facility] [address]rd [address] [place] [address] 07/14/2025 1:00 PM EST Appointment [facility] Radiation 800 [facility]. [address] [place] [address] Grey Wu MD 800 [facility] [address] [place] [address] 08/06/2025 11:15 AM EST Office Visit [place] [facility] [address], 2nd [place] [address] Mickie Crocker DO [address] [place] [address] documented as of this encounter [...] documented as of this encounter Care Teams Spray Rig Operator Relationship Specialty Start Date End Date Kiana Arenas PA [address] [place] [address] PCP - General 12/18/20 Grey Wu MD [address] [place] [address] Consulting Physician Radiation Oncology 09/16/24 Mini Cordova MD [address] [place] [address] Consulting Physician Palliative Medicine 11/27/24 Alonzo Ritter MD [address] Maria Del [facility] [address] [place] [address] Consulting Physician Medical Oncology 11/27/24 documented as of this encounter
--- NOTE | 2025-05-01 07:34 | ECG_ITS ---
APPROVED REPORT Exam: Resting ECG HR:104 bpm ECG Measurements Heart Rate 104 AXES MA 158 P 75 QRSd 90 QRS -16 QT 324 T 72 QTc 385 Conclusion SINUS TACHYCARDIA INDETERMINATE AXIS ABNORMAL RHYTHM ECG UNCONFIRMED REPORT Electronically signed by : OG GE, 05/02/2025 03:59:05
--- OUTSIDE RECORDS SUMMARY | 2025-05-01 07:34 | XMS_ITS | Encounter Summary ---
Author Organization [facility] Address [address] [place] [address] Care Team Providers Care Expedition Supervisor Name Role Phone Kiana Arenas Primary Care Provider [phone] Grey Wu MD Unavailable [phone] Mini Cordova MD Unavailable [phone] Alonzo Ritter MD Unavailable Encounter Details Date Type Department Care Team (Late st Contact Info) Description 04/30/2025 Telephone [facility] Hematology/BMT and Cellular Therapy Program [address] [place] [address] Mini Cordova MD [address] [facility] [address] [place] [address] Social History Tobacco Use Types [...] Upcoming Encounters Date Type Department Care Team ([facility] st Contact Info) Description 06/04/2025 10:00 AM EDT Clinical Support [facility] Hematology/BMT and Cellular Therapy Program [address] [phone] 06/04/2025 10:30 AM EDT Office Visit [facility] Hematology/BMT and Cellular Therapy Program [address] [phone] Mini Cordova MD [address] [facility] [address] [place] [address] 07/07/2025 9:00 AM EST Office Visit [facility] [place] [facility] [address] [facility], [address] [place] [address] June Jensen MD [address] [facility] 3rd Fl [address] [place] [address] 07/14/2025 1:00 PM EST Appointment [facility] Radiation [address] [id number] [place] [address] Grey Wu MD 800 [facility] [address] [place] [address] 08/06/2025 11:15 AM EST Office Visit [place] [facility] [address], 2nd [place] [address] Mickie Crocker DO [address] [place] [address] documented as of this encounter Visit Diagnoses Not on filedocumented in this encounter Additional Health Concerns Assessment Noted Time PHQ-9 Depression Total Score: 0 04/11/20 10:53 AM EDT A fall risk assessment has been complete d for the patient 04/11/2025 10:53 AM EDT A Body Mass Index follow-up plan has been documented for the patient 01/21/2025 3:27 PM EDT documented as of this encounter Care Teams Expedition Supervisor Relationship Specialty Start Date End Date Kiana Arenas PA [address] [facility] [place] [place] [address] PCP - General 12/18/20 Grey Wu MD [address] [facility] [address] [place] [address] Consulting Physician Radiation Oncology 09/16/24 Mini Cordova MD [address] [facility] [address] [place] [address] Consulting Physician Palliative Medicine 11/27/24 Alonzo Ritter MD [address] [facility] [address] [place] [address] Consulting Physician Medical Oncology 11/27/24 documented as of this encounter
--- OUTSIDE RECORDS SUMMARY | 2025-05-01 07:34 | XMS_ITS | Encounter Summary ---
Author Organization Healthcare Address [address] [place] [address] Care Team Providers Care Civil Engineering Project Manager Name Role Phone Kiana Arenas Primary Care Provider [phone] Grey Wu MD Unavailable [phone] Mini Cordova MD Unavailable [phone] Alonzo Ritter MD Unavailable Encounter Details Date [...] CC Hematology/BMT and Cellular Therapy Program 750 [facility], [address] [place] [address] 06/04/2025 10:30 AM EDT Office Visit [facility] Hematology/BMT and Cellular Therapy Program 750 [facility], [address] [place] [address] Mini Cordova MD [address] [place] [address] 07/07/2025 9:00 AM EST Office Visit [facility] [place] [facility] [address] [facility], [address] [place] [address] June Jensen MD [address] [facility] 3rd Fl [address] [place] [address] 07/14/2025 1:00 PM EST Appointment [facility] Radiation [address] HM[address] [place] [address] Grey Wu MD 800 [facility] [address] [place] [address] 08/06/2025 11:15 AM EST Office Visit [place] [facility] [address], 2nd [place] [address] Mickie Crocker DO [address] [place] [address] documented as of this encounter Visit Diagnoses [...] documented as of this encounter Care Teams Civil Engineering Project Manager Relationship Specialty Start Date End Date Kiana Arenas PA [address] [place] [address] PCP - General 12/18/20 Grey Wu MD 800 [facility] [address] [place] [address] Consulting Physician Radiation Oncology 09/16/24 Mini Cordova MD [address] [place] [address] Consulting Physician Palliative Medicine 11/27/24 Alonzo Ritter MD 800 [facility] Maria Del Rosario Lr [facility] [address] [place] [address] Consulting Physician Medical Oncology 11/27/24 documented as of this encounter
--- OUTSIDE RECORDS SUMMARY | 2025-05-01 07:34 | XMS_ITS | Encounter Summary ---
Author Organization Healthcare Address [address] [place] [address] Care Team Providers Care Wooden Fence Erector Name Role Phone Kiana Arenas Primary Care Provider [phone] Grey Wu MD Unavailable [phone] Mini Cordova MD Unavailable [phone] Alonzo Ritter MD Unavailable Encounter Details Date [...] and Cellular Therapy Program 750 [facility], [address] [place] [address] 06/04/2025 10:30 AM EDT Office Visit [facility] Hematology/BMT and Cellular Therapy Program 750 [facility], [address] [place] [address] Mini Cordova MD [address] [place] [address] 07/07/2025 9:00 AM EST Office Visit [facility] [place] [facility] [address] [facility], [address] [place] [address] June Jensen MD [address] [facility] 3rd [address] [place] [address] 07/14/2025 1:00 PM EST Appointment [facility] Radiation [address] [id number] [place] [address] Grey Wu MD 800 [facility] [address] [place] [address] 08/06/2025 11:15 AM EST Office Visit [place] [facility] [address], 2[address] [place] [address] Mickie Crocker DO [address] [place] [address] documented as of this encounter Visit Diagnoses [...] documented as of this encounter Care Teams Wooden Fence Erector Relationship Specialty Start Date End Date Kiana Arenas PA [address] [place] [address] PCP - General 12/18/20 Grey Wu MD 800 [facility] [address] [place] [address] Consulting Physician Radiation Oncology 09/16/24 Mini Cordova MD [address] [place] [address] Consulting Physician Palliative Medicine 11/27/24 Alonzo Ritter MD 800 [facility] Maria Del Rosario Lr [facility] [address] [place] [address] Consulting Physician Medical Oncology 11/27/24 documented as of this encounter
--- OUTSIDE RECORDS SUMMARY | 2025-05-01 07:34 | XMS_ITS | Encounter Summary ---
Author Organization [facility] Address [address] [place] [address] Care Team Providers Care Contact Manager Name Role Phone Kiana Arenas Primary Care Provider [phone] Grey Wu MD Unavailable [phone] Mini Cordova MD Unavailable [phone] Alonzo Ritter MD Unavailable Reason for Visit * Reason Onset Date Comments Med Refill 03/11/2025 Encounter Details Date Type Department Care Team (Late st Contact Info) Description 03/11/2025 Refill [place] [facility] [address], [address] [place] [address] Mickie Crocker DO [address] [place] [address] Seropositive rheumatoid arthritis of multiple [...] Upcoming Encounters Date Type Department Care Team ([facility] Contact Info) Description 06/04/2025 10:00 AM EDT Clinical Support P[facility] Hematology/BMT and Cellular Therapy Program [address] [phone] 06/04/2025 10:30 AM EDT Office Visit [facility] Hematology/BMT and Cellular Therapy Program [address] [phone] Mini Cordova MD [address] [facility] [address] [place] [address] 07/07/2025 9:00 AM EST Office Visit [facility] [place] [facility] [address] [facility], [address] [place] [address] June Jensen MD [address] [place] [address] 07/14/2025 1:00 PM EST Appointment [facility] Radiation 800 [facility]. [address] [place] [address] Grey Wu MD 800 [facility] [address] [place] [address] 08/06/2025 11:15 AM EST Office Visit [place] [facility] [address], [address] [place] [address] Obi Mickie, [address] [place] [address] documented as of this encounter [...] documented as of this encounter Care Teams Contact Manager Relationship Specialty Start Date End Date Kiana Arenas PA [address] [place] [address] PCP - General 12/18/20 Grey Wu MD [address] [facility] [address] [place] [address] Consulting Physician Radiation Oncology 09/16/24 Mini Cordova MD [address] [place] [address] Consulting Physician Palliative Medicine 11/27/24 Alonzo Ritter MD [address] Maria Del Rosario Lr d[address] [place] [address] Consulting Physician Medical Oncology 11/27/24 documented as of this encounter
--- OUTSIDE RECORDS SUMMARY | 2025-05-01 07:34 | XMS_ITS | Encounter Summary ---
Author Organization Healthcare Address [facility] [place] [address] Care Team Providers Care Tectonophysicist Name Role Phone Kiana Arenas Primary Care Provider [phone] Grey Wu MD Unavailable [phone] Mini Cordova MD Unavailable [phone] Alonzo Ritter MD Unavailable Encounter Details Date Type Department Care Team (Latest Contact Info) Description 04/11/2025 Travel Social History Tobacco Use Types Packs/Day [...] Hematology/BMT and Cellular Therapy Program [address] [phone] 06/04/2025 10:30 AM EDT Office Visit [facility] Hematology/BMT and Cellular Therapy Program 750 [facility], [address] [place] [phone] Mini Cordova MD [address] [facility] [address] [place] [address] 07/07/2025 9:00 AM EST Office Visit [facility] [address] [facility], [address] [place] [address] June Jensen MD [address] [facility] 3rd Fl [address] [place] [address] 07/14/2025 1:00 PM EST Appointment [facility] Radiation [id number] [place] [address] Grey Wu MD 800 [facility] [address] [place] [address] 08/06/2025 11:15 AM EST Office Visit [place] [facility] [address], 2nd [place] [address] Mickie Crocker DO [address] [place] [address] documented as of this encounter Visit Diagnoses [...] documented as of this encounter Care Teams Tectonophysicist Relationship Specialty Start Date End Date Kiana Arenas PA [address] [facility] [place] [address] PCP - General 12/18/20 Grey Wu MD [address] [facility] [address] [place] [address] Consulting Physician Radiation Oncology 09/16/24 Mini Cordova MD [address] [facility] [address] [place] [address] Consulting Physician Palliative Medicine 11/27/24 Alonzo Ritter MD 800 [address] [facility] [address] [place] [address] Consulting Physician Medical Oncology 11/27/24 documented as of this encounter
--- OUTSIDE RECORDS SUMMARY | 2025-05-01 07:34 | XMS_ITS | Encounter Summary ---
Author Organization [facility] Address [address] [place] [address] Care Team Providers Care Health Concierge Name Role Phone Kiana Arenas Primary Care Provider [phone] Grey Wu MD Unavailable [phone] Mini Cordova MD Unavailable [phone] Alonzo Ritter MD Unavailable Encounter Details Date Type Department Care Team (Late st Contact Info) Description 03/10/2025 Telephone [facility] Hematology/BMT and Cellular Therapy Program [address] [place] [phone] Mini Cordova MD [address] [facility] [address] [place] [address] Social History Tobacco Use Types [...] Upcoming Encounters Date Type Department Care Team ([facility] st Contact Info) Description 06/04/2025 10:00 AM EDT Clinical Support [facility] CC Hematology/BMT and Cellular Therapy Program [address] [phone] 06/04/2025 10:30 AM EDT Office Visit [facility] Hematology/BMT and Cellular Therapy Program [address] [phone] Mini Cordova MD [address] [facility] [address] [place] [address] 07/07/2025 9:00 AM EST Office Visit [facility] [place] [facility] [address] [facility], [address] [place] [address] June Jensen MD [address] [facility] 3rd Fl [address] [place] [address] 07/14/2025 1:00 PM EST Appointment [facility] Radiation [address] [id number] [place] [address] Grey Wu MD 800 [facility] [address] [place] [address] 08/06/2025 11:15 AM EST Office Visit [place] [facility] [address], 2[address] [place] [address] Mickie Crocker DO [address] [place] [address] [place] [address] documented as of this encounter [...] documented as of this encounter Care Teams Health Concierge Relationship Specialty Start Date End Date Kiana Arenas PA [address] [facility] [place] [address] PCP - General 12/18/20 Grey Wu MD [address] [facility] [address] [place] [address] Consulting Physician Radiation Oncology 09/16/24 Mini Cordova MD [address] [facility] [address] [place] [address] Consulting Physician Palliative Medicine 11/27/24 Alonzo Ritter MD [address] [facility] [address] [place] [address] Consulting Physician Medical Oncology 11/27/24 documented as of this encounter
--- OUTSIDE RECORDS SUMMARY | 2025-05-01 07:34 | XMS_ITS | Encounter Summary ---
Author Organization Healthcare Address [address] [place] [address] Care Team Providers Care Dental Laboratory Manager Name Role Phone Kiana Arenas Primary Care Provider [phone] Grey Wu MD Unavailable [phone] Mini Cordova MD Unavailable [phone] Alonzo Ritter MD Unavailable Encounter Details Date Type Department Care Team (Latest Contact Info) Description 04/18/2025 Travel Social History Tobacco Use Types Packs/Day [...] CC Hematology/BMT and Cellular Therapy Program 750 [facility], [address] [place] [address] 06/04/2025 10:30 AM EDT Office Visit [facility] Hematology/BMT and Cellular Therapy Program 750 [facility], [address] [place] [address] Mini Cordova MD [address] [place] [address] 07/07/2025 9:00 AM EST Office Visit [facility] [place] [facility] [address] [facility], [address] [place] [address] June Jensen MD [address] [facility] 3rd [address] [place] [address] 07/14/2025 1:00 PM EST Appointment [facility] Radiation [id number] [place] [address] Grey Wu MD 800 [facility] [address] [place] [address] 08/06/2025 11:15 AM EST Office Visit [place] [facility] [address], 2nd [place] [address] Mickie Crocker DO [address] [place] [address] documented as of this encounter Visit Diagnoses [...] documented as of this encounter Care Teams Dental Laboratory Manager Relationship Specialty Start Date End Date Kiana Arenas PA [address] [place] [address] PCP - General 12/18/20 Grey Wu MD 800 [facility] [address] [place] [address] Consulting Physician Radiation Oncology 09/16/24 Mini Cordova MD [address] [place] [address] Consulting Physician Palliative Medicine 11/27/24 Alonzo Ritter MD 800 [facility] Maria Del Rosario Lr [facility] [address] [place] [address] Consulting Physician Medical Oncology 11/27/24 documented as of this encounter
--- OUTSIDE RECORDS SUMMARY | 2025-05-01 07:34 | XMS_ITS | Encounter Summary ---
Author Organization [facility] Address [address] [id number] Care Team Providers Care Pharmacometrician Name Role Phone Kiana Arenas Primary Care Provider [phone] Grey Wu MD Unavailable [phone] Mini Cordova MD Unavailable [phone] Alonzo Ritter MD Unavailable Encounter Details Date Type Department Care Team (Late st Contact Info) Description 03/12/2025 Orders Only [facility] Hematology/BMT and Cellular Therapy Program [address] [place] [address] [address] [place] [id number] Yamileth Lewis, PharmD [address] [place] [address] Social History Tobacco Use Types Packs/Day Years [...] CC Hematology/BMT and Cellular Therapy Program [address] [facility], [address] [place] [phone] 06/04/2025 10:30 AM EDT Office Visit [facility] Hematology/BMT and Cellular Therapy Program [address] [facility] [place] [phone] Mini Cordova MD [address] [facility] [address] [place] [address] 07/07/2025 9:00 AM EST Office Visit [facility] [address] [facility], [address] [place] [address] June Jensen MD [address] [facility] 3[address] [place] [address] 07/14/2025 1:00 PM EST Appointment [facility] Radiation [address] [place] [phone] Grey Wu MD [address] [facility] [address] [place] [address] 08/06/2025 11:15 AM EST Office Visit [facility] [address] [place] [address] Mickie Crocker DO [address] [place] [address] documented as of this encounter Visit Diagnoses Not on filedocumented in this encounter Additional Health Concerns Assessment Noted Time PHQ-9 Depression Total Score: 6 07/30/20 25 10:00 AM EDT A fall risk assessment has been complete d for the patient 01/20/2025 1:32 PM EDT A Body Mass Index follow-up plan has been documented for the patient 01/21/2025 3:27 PM EDT documented as of this encounter Care Teams Pharmacometrician Relationship Specialty Start Date End Date Kiana Arenas PA [address] [place] [address] PCP - General 12/18/20 Grey Wu MD [address] [facility] [address] [place] [address] Consulting Physician Radiation Oncology 09/16/24 Mini Cordova MD [address] [facility] [address] [place] [address] Consulting Physician Palliative Medicine 11/27/24 Alonzo Ritter MD [address] [facility] [address] [facility] [address] [place] [address] Consulting Physician Medical Oncology 11/27/24 documented as of this encounter
--- OUTSIDE RECORDS SUMMARY | 2025-05-01 07:34 | XMS_ITS | Encounter Summary ---
Author Organization Healthcare Address [address] [place] [address] Care Team Providers Care Psychiatrist Name Role Phone Kiana Arenas Primary Care Provider [phone] Grey Wu MD Unavailable [phone] Mini Cordova MD Unavailable [phone] Alonzo Ritter MD Unavailable Encounter Details Date Type Department Care Team (Latest Contact Info) Description 04/10/2025 Travel Social History Tobacco Use Types Packs/Day [...] Cellular Therapy Program [address] [facility] [place] [address] 06/04/2025 10:30 AM EDT Office Visit [facility] Hematology/BMT and Cellular Therapy Program [address] [facility] [address] [place] [address] Mini Cordova MD [address] [place] [address] 07/07/2025 9:00 AM EST Office Visit [facility] [address] [facility], [address] [place] [address] June Jensen MD [address] [facility] [address] [place] [address] 07/14/2025 1:00 PM EST Appointment [facility] Radiation [address] [place] [phone] Grey Wu MD [address] [facility] [address] [place] [address] 08/06/2025 11:15 AM EST Office Visit [facility] [address] [place] [address] Mickie Crocker DO [address] [place] [address] documented as of this encounter Visit Diagnoses [...] documented as of this encounter Care Teams Psychiatrist Relationship Specialty Start Date End Date Kiana Arenas PA [address] [place] [address] PCP - General 12/18/20 Grey Wu MD [address] [facility] [address] [place] [address] Consulting Physician Radiation Oncology 09/16/24 Mini Cordova MD [address] [place] [address] Consulting Physician Palliative Medicine 11/27/24 Alonzo Ritter MD [address] [facility] [address] [place] [address] Consulting Physician Medical Oncology 11/27/24 documented as of this encounter
--- OUTSIDE RECORDS SUMMARY | 2025-05-01 07:34 | XMS_ITS | Encounter Summary ---
Author Organization [facility] Address [address] [place] [address] Care Team Providers Care Miner Pick Name Role Phone Kiana Arenas Primary Care Provider [phone] Grey Wu MD Unavailable [phone] Mini Cordova MD Unavailable [phone] Alonzo Ritter MD Unavailable Reason for Visit * Reason Comments Med Refill Encounter Details Date Type Department Care Team (Late st Contact Info) Description 04/14/2025 Refill [facility] Hematology/BMT and Cellular Therapy Program [address] [place] [phone] Mini Cordova MD [address] [facility] [address] [place] [address] Social History Tobacco Use Types [...] encounter Miscellaneous Notes * Telephone Encounter - Latonia Villanueva, RN - 04/14/2025 9:16 AM EDT On 03/12, the prescription was written for 60 day supply along with 1 refill. This should be good through at least early July I believe. documented in this encounter Plan of Treatment Upcoming Encounters Date Type Department Care Team ([facility] Contact Info) Description 06/04/2025 10:00 AM EDT Clinical Support [facility] Hematology/BMT and Cellular Therapy Program [address] [phone] 06/04/2025 10:30 AM EDT Office Visit [facility] Hematology/BMT and Cellular Therapy Program [address] [phone] Mini Cordova MD [address] [facility] [address] [place] [address] 07/07/2025 9:00 AM EST Office Visit [facility] [address] [facility], [address] [place] [address] June Jensen MD [address] [facility] [address] [facility] [address] [place] [address] 07/14/2025 1:00 PM EST Appointment [facility] Radiation [address] [facility] [address] [place] [address] Grey Wu MD [address] [facility] [address] [place] [address] 08/06/2025 11:15 AM EST Office Visit [facility] [address] [place] [address] Obi Mickie, [address] [place] [address] documented as [...] documented as of this encounter Care Teams Miner Pick Relationship Specialty Start Date End Date Kiana Arenas PA [address] [place] [address] PCP - General 12/18/20 Grey Wu MD [address] [facility] [address] [place] [address] Consulting Physician Radiation Oncology 09/16/24 Mini Cordova MD [address] [place] [address] Consulting Physician Palliative Medicine 11/27/24 Alonzo Ritter MD [address] [facility] [address] [place] [address] Consulting Physician Medical Oncology 11/27/24 documented as of this encounter
--- OUTSIDE RECORDS SUMMARY | 2025-05-01 07:34 | XMS_ITS | Clinical Summary ---
Author Organization [facility] Address [address] [place] [address] Care Team Providers Care Ply Bander Name Role Phone Kiana Arenas Primary Care Provider [phone] Grey Wu MD Unavailable [phone] Mini Cordova MD Unavailable [phone] Alonzo Ritter MD Unavailable Allergies Active Allergy [...] and 1 tablet (3.125 mg) before bedtime. 11/06/19 22 Active albuterol (2.5 MG/3ML) 0.083% nebulizer solution 11/06/19 22 Active ProAir HFA 108 (90 Base) MCG/ACT inhaler 11/06/19 22 Active alendronate (Fosamax) 70 MG tablet Take 1 tablet (70 mg) by mouth 1 (one) time per week. 11/06/19 22 Active Calcium + Vitamin D3 600-10 MG-MCG tablet Take 1 tablet by mouth in the morning. 11/06/19 22 Active cholecalciferol (Vitamin D3) 25 MCG (1000 UT) tablet Take 1 tablet (1,000 Units) by mouth in the morning. 11/06/19 22 Active cyanocobalamin (Vitamin B-12) 1000 MCG/ML injection 1 mL (1,000 mcg) every 30 (thirty) days. 11/06/19 22 Active ergocalciferol 1.25 MG (38388 UT) capsule Take 1 capsule (50,000 Units) by mouth 1 (one) time per week. 11/06/19 22 Active Slow Release Iron 45 MG tablet controlled-rele ase Take 1 tablet by mouth in the morning. 11/06/19 22 Active B-D UF III MINI PEN NEEDLES 31G X 5 MM [facility] See administration instructions. 07/20/20 21 Active levothyroxine (Synthroid, Levoxyl) 137 MCG tablet Take 1 tablet (137 mcg) by mouth in the morning. 11/05/19 22 Active montelukast (Singulair) 10 MG tablet 11/06/19 22 Active omeprazole (PriLOSEC) [address] capsule 11/06/19 22 Active phenazopyridine (Pyridium) 200 MG tablet Take 1 tablet (200 mg) by mouth as needed in the morning and 1 tablet (200 mg) as needed at noon and 1 tablet (200 mg) as needed in the evening. 04/19/20 21 Active B-D 3CC LUER-EDUARDO SYR 25GX1 25G X 1 3 ML misc 11/06/19 22 Active estradiol (Estrace) 1 MG tablet Take 1 tablet (1 mg) by mouth in the morning. 11/06/19 22 Active latanoprost (Xalatan) 0.005 % ophthalmic solution Administer 1 drop into both eyes in the morning. 12/28/19 23 Active rOPINIRole (Requip) 0.25 MG tablet Take 1 tablet (0.25 mg) by mouth nightly. 01/13/20 23 Active Roflumilast 250 MCG tablet Take 1 tablet (250 mcg) by mouth 1 (one) time each day. 28 tablet 11 02/28/20 24 Active Additional Information Patient taking differently:1 tablet OralNightly, Reported on 04/09/2025 Aspirin Low Dose 81 MG EC tablet Take 1 tablet (81 mg) by mouth in the morning. 04/27/20 24 Active Trelegy Ellipta 100-62.5-25 MCG/ACT aerosol powder Inhale 1 puff. 05/17/20 24 Active isosorbide mononitrate ER (Imdur) 30 MG 24 hr tablet Take 1 tablet (30 mg) by mouth in the morning. 04/27/20 24 Active naloxone (Narcan) 4 mg/0.1 mL nasal spray 1. Give 1 spray in nostril for no/slow breathing or cannot wake after opioid use 2. Call 911 3. Repeat in other nostril if symptoms continue 1 each 09/30/19 25 Active potassium chloride ER (Micro-K) 10 MEQ ER capsule Take 1 capsule by mouth daily. 12/04/19 25 Active furosemide (Lasix) 40 MG tablet Take 1 tablet by mouth daily. 01/06/20 25 Active ibuprofen 800 MG tablet Take 1 tablet by mouth every 6 hours as needed for mild pain or moderate pain. 01/06/20 25 Active formoterol (Perforomist) 20 MCG/2ML nebulizer solutionIndicat ions:COPD, severe (CMS/HCC) Take 2 mL by nebulization 2 times a day. 120 mL 11 03/04/20 25 Active revefenacin (Yupelri) 175 MCG/3ML nebulizer solutionIndicat ions:COPD, severe (CMS/HCC) Take 3 mL by nebulization daily. 90 mL 11 03/04/20 25 Active hydrOXYzine pamoate (Vistaril) 25 MG capsule Take 1 capsule by mouth 3 times a day as needed for anxiety. 02/01/20 25 Active predniSONE (Deltasone) 5 MG tabletIndicatio ns:Seropositive rheumatoid arthritis of multiple sites (CMS/HCC) Take 2 tablets by mouth daily. 180 tablet 03/11/20 25 Active gabapentin (Neurontin) 600 MG tablet Take 1 tablet by mouth 3 times a day. 180 tablet 1 03/12/20 25 Active carisoprodol (Soma) 250 MG tablet Take 1 tablet by mouth daily as needed for muscle spasms. 30 tablet 1 04/09/20 25 Active amitriptyline (Elavil) 50 MG tablet Take 1 tablet by mouth nightly. 30 tablet 1 04/09/20 25 Active buprenorphine (Butrans) 15 MCG/HRIndicatio ns:Cancer related pain,Chronic pain syndrome,Encoun ter for palliative care Place 1 patch on the skin 1 time per week over 168 hours. 4 patch 1 04/09/20 25 Active oxyCODONE-aceta minophen (Percocet) 7.5-325 MG tablet Take 1 tablet by mouth 5 times a day as needed for severe pain for up to 14 days. 70 tablet 04/28/20 25 025 Active oxyCODONE-aceta minophen (Percocet) 7.5-325 MG tablet Take 1 tablet by mouth 5 times a day as needed for severe pain for up to 14 days. 70 tablet 05/12/20 25 025 Active oxyCODONE-aceta minophen (Percocet) 7.5-325 MG tablet Take 1 tablet by mouth 5 times a day as needed for severe pain. 70 tablet 05/26/20 25 Active promethazine (Phenergan) 12.5 MG tabletIndicatio ns:Encounter for palliative care,Nausea Take 1 tablet by mouth every 6 hours as needed for nausea or vomiting. 60 tablet 2 04/30/20 25 Active tiZANidine (Zanaflex) 4 MG tablet 12/16/19 25 025 Discontinu ed(Alterna te therapy) promethazine (Phenergan) 12.5 MG tabletIndicatio ns:Encounter for palliative care,Nausea Take 1 tablet by mouth every 6 hours as needed for nausea or vomiting. 60 tablet 2 02/06/20 25 025 Discontinu ed(Reorder ) buprenorphine (Butrans) 15 MCG/HRIndicatio ns:Cancer related pain,Chronic pain syndrome,Encoun ter for palliative care Place 1 patch on the skin 1 time per week over 168 hours. 4 patch 2 02/12/20 25 025 Discontinu ed(Reorder ) amitriptyline (Elavil) 50 MG tablet Take 1 tablet by mouth nightly. 30 tablet 03/05/20 25 025 Discontinu ed(Reorder ) oxyCODONE-aceta minophen (Percocet) 7.5-325 MG tabletIndicatio ns:Chronic pain syndrome,Cancer related pain,Encounter for palliative care Take 1 tablet by mouth 5 times a day as needed for severe pain for up to 14 days. 70 tablet 03/31/20 25 025 Discontinu ed(Reorder ) butalbital-acet aminophen-caffe ine 50-325-40 MG tablet Take 2 tablets by mouth every 8 hours as needed for headaches. 03/28/20 25 025 Discontinu ed(Therapy completed) oxyCODONE-aceta minophen (Percocet) 7.5-325 MG tabletIndicatio ns:Cancer related pain,Chronic pain syndrome,Encoun ter for palliative care Take 1 tablet by mouth 5 times a day as needed for severe pain for up to 14 days. 70 tablet 04/14/20 25 025 Active Problems Problem Noted Date Diagnosed Date [...] 08/22/2024 08/22/2024 Overview (08/22/2024): Reviewed records from [facility]. Synovial fluid culture negative for growth. [...] Encounters Date Type Department Care Team Description 04/30/2025 Telephone [facility] Hematology/BMT and Cellular Therapy Program [address] [place] [phone] Mini Cordova MD 04/30/2025 Refill [facility] Therapy Program [address] [place] [phone] Mini Cordova MD Encounter for palliative care; Nausea 04/18/2025 Travel 04/14/2025 Refill [facility] Therapy [facility] [address] [place] [phone] Mini Cordova MD 04/11/2025 10:46 AM EDT - 04/11/2025 11:59 PM EDT Hospital Encounter [facility] [address] [phone] Anusha Martines APRN, DNP Squamous cell carcinoma of right lung (Primary Dx) Discharge Disposition: Still a Patient 04/11/2025 Travel 04/10/2025 Travel 04/09/2025 9:30 AM EDT Office Visit [facility] Cellular Therapy Program [address] [place] [phone] Mini Cordova MD Cancer related pain; Chronic pain syndrome; Encounter for palliative care 04/09/2025 9:00 AM EDT Clinical Support [facility]MT [facility] Cellular Therapy Program [address] [place] [phone] 04/09/2025 Travel 04/01/2025 Telephone [facility] [address] [place] [phone] Anusha Martines APRN, DNP 03/28/2025 Telephone [facility] [address] [place] [phone] Radha Arreola, compliance program manager 03/24/2025 Orders Only [facility] [address] [phone] Radiation Oncology, Physician, 03/21/2025 Telephone [facility] [address] [phone] Grey Wu MD 03/20/2025 Travel 03/18/2025 11:45 AM EDT - 03/18/2025 11:59 PM EDT Hospital Encounter [facility] [address] [address] Discharge Disposition: Still a Patient 03/18/2025 Orders Only [facility] [address] [address] Radiation Oncology, Physician, 03/18/2025 Travel 03/17/2025 3:25 AM EDT - 03/17/2025 11:59 PM EDT Hospital Encounter [facility] [address] [address] Discharge Disposition: Still a Patient 03/17/2025 Telephone [facility] Cellular Therapy Program [address] [place] [phone] Megan Chance MD 03/17/2025 Telephone [facility] Cellular Therapy [facility] [address] [place] [address] Megan Chance MD 03/17/2025 Travel 03/13/2025 Travel 03/12/2025 8:50 AM EDT - 03/12/2025 11:59 PM EDT Hospital Encounter [facility] [address] [phone] Discharge Disposition: Still a Patient 03/12/2025 Orders Only [facility]ology/BMT and Cellular Therapy Program 750 [facility], [address] [place] [phone] Yamileth Lewis, PharmD 03/12/2025 Telephone Psych Oncology [address] [place] [address] 03/12/2025 Orders Only [facility] [address] [address] Radiation Oncology, Physician, 03/11/2025 Travel 03/11/2025 Refill [facility] [address] [place] [address] Mickie Crocker DO Seropositive rheumatoid arthritis of multiple sites ([facility]/HCC) 03/10/2025 3:25 AM EDT - 03/10/2025 11:59 PM EDT Hospital Encounter [facility] [address] [address] Discharge Disposition: Still a Patient 03/10/2025 Telephone [facility] [address] [place] [address] Mickie Crocker DO 03/10/2025 Telephone [facility] Cellular Therapy [facility] [address] [phone] Mini Cordova MD 03/10/2025 Refill [facility] Therapy [facility] [address] [phone] Mini Cordova MD 03/10/2025 Travel 03/08/2025 Travel 03/07/2025 9:29 AM EDT - 03/07/2025 11:59 PM EDT Hospital Encounter [facility] [address] [address] Discharge Disposition: Still a Patient 03/07/2025 Orders Only [facility] [address] [phone] Radiation Oncology, PhysicianMD 03/07/2025 Orders Only [facility] [address] [address] Radiation Oncology, Physician, 03/06/2025 Travel 03/05/2025 10:00 AM EDT Office Visit [facility]ology/BMT and Cellular Therapy Program 750 [facility] [place] [address] Chantell Almaguer, JUNIOR ESTIMATOR, DNP Squamous cell carcinoma of right lung (Primary Dx); Chronic pain syndrome; Cancer related pain; Encounter for palliative care 03/05/2025 9:30 AM EDT Clinical Support [facility]ology/BMT and Cellular Therapy Program 750 [facility], [facility] [place] [address] 03/05/2025 9:15 AM EDT - 03/05/2025 11:59 PM EDT Hospital Encounter [facility] [address] [phone] Discharge Disposition: Still a Patient 03/05/2025 Travel 03/05/2025 Orders Only [facility] [address] [place] [phone] Radiation Oncology, Physician, 03/04/2025 Refill [facility] [address] [place] [address] Dunia Menard, JUNIOR ESTIMATOR COPD, severe (CMS/HCC) 03/04/2025 Travel 03/03/2025 9:24 AM EDT - 03/03/2025 11:59 PM EDT Hospital Encounter [facility] [address] [place] [phone] Discharge Disposition: Still a Patient 03/03/2025 Telephone [facility] [address] [address] rGey Wu MD 03/03/2025 Travel 02/27/2025 Social Work Psych Oncology [address] [place] [phone] Marisel Griffin 02/25/2025 Travel 02/24/2025 7:30 AM EDT - 02/24/2025 11:59 PM EDT Hospital Encounter [facility] [address] [place] [phone] Discharge Disposition: Still a Patient 02/17/2025 2:45 PM EDT - 02/17/2025 11:59 PM EDT Hospital Encounter [facility] [address] [address] Grey Wu MD Malignant neoplasm of lower lobe of right lung (CMS/HCC) (Primary Dx) Discharge Disposition: Still a Patient 02/17/2025 7:30 AM EDT - 02/17/2025 2:44 PM EDT Hospital Encounter [facility] [address] [address] Discharge Disposition: Still a Patient 02/17/2025 Travel 02/11/2025 Travel 02/05/2025 10:00 AM EDT Office Visit [facility] [address] [place] [phone] Sanjana Fonseca MD Encounter for palliative care (Primary Dx); Cancer related pain; Chronic pain syndrome; Nausea 02/05/2025 Telephone [facility] Therapy [facility] [address] [place] [phone] Sanjana Fonseca MD 02/04/2025 Travel 02/03/2025 Telephone [facility] [address] [place] [phone] Sanjana Fonseca MD Med Refill 01/30/2025 Travel 01/29/2025 Travel from Last 3 Months Immunizations Immunization Administration Dates Next Due Influenza, Unspecified 06/21/2017 Influenza, injectable, quadrivalent, preservativ e free 06/14/2017 Influenza, seasonal, injectable, preservative fr ee 05/27/2024,09/11/2018 Pf[employer] COVID-19 Vaccine (Purple Cap) 12 + 08/23/2021,08/02/2021 Pneumococcal 20-dakota Conj Vaccine 01/13/2023 Pneumococcal Polysaccharide PPV23 06/06/2019 Tdap 05/27/2024 Family History Medical History Relation Name Comments Diabetes Brother Stroke Brother Arthritis Mother Elise rodney COPD Mother Elise rodney Diabetes Mother Elise rodney Glaucoma Mother Elise stevens Heart disease Mother Elise stevens Heart failure Mother Elise stevens Miscarriages / [...] Pulse 109 04/11/2025 10:52 AM EDT Temperature 36.7 C (98 F) 04/09/2025 9:33 AM EDT Respiratory Rate 16 04/11/2025 10:52 AM EDT Oxygen Saturation 95% 04/11/2025 10:52 AM EDT Inhaled Oxygen Concentration - - Weight 54.9 kg (121 lb) 04/11/2025 10:52 AM EDT Height 165.1 cm (5' 5 ) 04/09/2025 9:33 AM EDT Body Mass Index 20.14 04/09/2025 9:33 AM EDT Plan of Treatment Upcoming Encounters Date Type Department Care Team (Late st Contact Info) Description 06/04/2025 10:00 AM EDT Clinical Support [facility] H[facility]ology/BMT and Cellular Therapy Program 750 [facility], [address] [place] [phone] 06/04/2025 10:30 AM EDT Office Visit [facility]ology/BMT and Cellular Therapy Program 750 [facility], [address] [place] [phone] Mini Cordova MD [address] [place] [phone] 07/07/2025 9:00 AM EST Office Visit Professional [facility] [address] [facility], [address] [place] [address] June Jensen MD [address] [facility] [address] [place] [phone] 07/14/2025 1:00 PM EST Appointment [facility] [id number] [place] [phone] Grey Wu MD 800 [facility] [address] [place] [address] 08/06/2025 11:15 AM EST Office Visit [facility] [address] [place] [address] Mickie Crocker DO [address] [place] [phone] Health Maintenance Due Date Last Done Comments [facility]-Bone Density Scan 1969 [facility]-/Child/Adol SDOH Screenings 1969 [facility]- SDOH Screenings 1987 [facility]-Adult SDOH Screenings 1987 [facility]-Hepatitis B Vaccines (1 of 3 - 19+ 3-dose series) 1988 [facility]-Zoster Vaccines (1 of 2) 1988 CT Colonography 2014 Colonoscopy 2014 FIT-DNA 2014 FIT 2014 FOBT 2014 Sigmoidoscopy 2014 [facility]-Colorectal Cancer Screening 2014 [facility]-Breast Cancer Screening 2019 [id number] Vaccine (3 - Pfizer risk series) 09/20/2021 08/23/2021, 08/02/2021 [facility]-Influenza Vaccine (#1) 04/07/202505/27, 09/11/2018, 06/21/2017, Additional history exists [facility]-Depression Screening 04/11/2026 04/11/2025, 12/2024 [facility]-DTaP,Tdap,and Td Vaccines (2 - Td or [...] EDT Squamous cell carcinoma of right lung ACUTE HEPATITIS PANEL Routine 06/28/2024 11:53 AM [...] RADIATION ONCOLOGY Plan Prescribed Dose Per Fraction [id number] Gy [facility] RADIATION ONCOLOGY Plan Total Prescribed Dose 750.5 CGy [facility] RADIATION ONCOLOGY Plan Primary Reference Point Verification [facility] RADIATION ONCOLOGY Plan ID RUL/RLL SBRT [facility] RAD[facility]ATION ONCOLOGY Plan Name RUL/RLL SBRT [facility] RAD[facility]ATION ONCOLOGY Plan Fractions Treated to Date 0 [facility] RADIATION ONCOLOGY Plan Total Fractions Prescribed 1 [facility] RADIATION ONCOLOGY Plan Prescribed Dose Per Fraction 6.44941309191548 Gy [facility] RADIATION ONCOLOGY Plan Total Prescribed [...] 03/07/2025 9:51 AM EDT Physician Radiation Oncology MD RADIATION ONCOLO [...] ONCOLOGY Plan Primary Reference Point RUL/RLL SBRT [facility] RADIATION ONCOLOGY 03/05/2025 9:42 AM EDT us Physician Radiation Oncology RADIATION ONCOLO GY ORDERABLES Final Result [facility] RADIATION ONCOLOGY * CT Chest w IV Contrast (01/13/2025 [...] Total DLP (Dose-Length Product): 255.16 mGy.cm (accession [id number]), 255.16 mGy.cm (accession [id number]). Please note: The reported value represents the [...] Total DLP (Dose-Length Product): 255.16 mGy.cm (accession [id number]),255.16 mGy.cm (accession [id number]). Please note: The reported valuerepresents the total [...] appearance of wedge compression fracture of the O0ochwphrve body. No suspicious lytic or sclerotic bone [...] MD IMG CT PROCEDURES Final Result * Hepatitis panel, acute (06/28/2024 11:53 AM EST) Hepatitis B Surf Antigen Negative Negative 06/28/2024 2:54 PM EST [facility] Hepatitis C Antibody Negative Negative 06/28/2024 2:54 PM EST [facility] Hepatitis A Antibody IgM Negative Negative 06/28/2024 2:54 PM EST [facility] Hepatitis B Core Antibody IgM Negative Negative 06/28/2024 2:54 PM EST [facility] Blood Venous blood specimen / Unknown Venipuncture / Unknown 06/28/2024 11:53 AM EST 06/28/2024 11:53 AM EST us Mickie Crocker DO LAB BLOOD ORDERABLES Final Resu lt Performing Organization Address City/[facility] Co de Phone Number [facility] [address] [place] [address] * HIV 1 & 2 Antibody/Antigen Screen (05/23/2023 2:39 PM EDT) Pathologist [facility] HIV 1 & 2 Antibody/Antigen Screen Non Reactive Non Reactive 05/23/2023 5:22 PM EDT [facility] Comment:Screening for HIV 1 & 2 antibodies, and P24 antigen is NONREACTIVE. No confirmatory testing is required. Blood Venous blood specimen / Unknown Venipuncture / Unknown 05/23/2023 2:39 PM EDT 05/23/2023 2:40 PM EDT us Ashlyn Brasher APRN LAB BLOOD ORDERABLES Final Result Performing Organization Address City/[facility] Co de Phone Number [facility] [address] [place] [address] from Last 3 Months or Most Recently Relevant to Health Maintenance Insurance [facility] MEDICAID Advance Directives * Full Code (Latest Code Status on File) Date Activated Date Inactivated Comments 10/25/2024 9:56 AM 10/26/2024 2:33 AM * Full Code Date Activated Date Inactivated Comments 08/30/2024 10:37 AM 08/31/2024 2:38 AM Question Answer Comments Patient has decision-making capacity? Yes Care Teams Ply Bander Relationship Specialty Start Date End Date Kiana Arenas PA [address] [place] [address] PCP - General 12/18/20 Grey Wu MD [address] [facility] [address] [place] [address] Consulting Physician Radiation Oncology 09/16/24 Mini Cordova MD [address] [place] [address] Consulting Physician Palliative Medicine 11/27/24 Alonzo Ritter MD [address] [place] [address] Consulting Physician Medical Oncology 11/27/24
--- OUTSIDE RECORDS SUMMARY | 2025-05-01 07:34 | XMS_ITS | Encounter Summary ---
Author Organization [facility] Address [address] [place] [address] Care Team Providers Care Director Of Coding Name Role Phone Kiana Arenas Primary Care Provider [phone] Grey Wu MD Unavailable [phone] Mini Cordova MD Unavailable [phone] Alonzo Ritter MD Unavailable Encounter Details Date Type Department Care Team (Late st Contact Info) Description 03/07/2025 Orders Only [facility] [address] [place] [address] Radiation Oncology, Physician, [address] [place] [address] Social History Tobacco Use Types Packs/Day [...] Cellular Therapy Program [address] [facility] [place] [phone] 06/04/2025 10:30 AM EDT Office Visit [facility] Hematology/BMT and Cellular Therapy Program [address] [facility], [address] [phone] Mini Cordova MD [address] [facility] [address] [place] [phone] 07/07/2025 9:00 AM EST Office Visit Professional [facility] [address] [facility], [address] [place] [address] June Jensen MD [address] [facility] [address] [place] [address] 07/14/2025 1:00 PM EST Appointment [facility] [address] [place] [phone] Grey Wu MD 800 [facility] [address] [place] [address] 08/06/2025 11:15 AM EST Office Visit [facility] [address] [place] [address] Mickie Crocker DO [address] [place] [phone] documented as of this encounter Procedures Procedure [...] RADIATION ONCOLOGY Plan Prescribed Dose Per Fraction 7.98366381114645 Gy [facility] RADIATION ONCOLOGY Plan Total Prescribed Dose 750.5 CGy [facility] RADIATION ONCOLOGY Plan Primary Reference Point Verification [facility] RADIATION ONCOLOGY Plan ID RUL/RLL SBRT [facility]ATION [facility]COLOGY Plan Name RUL/RLL SBRT [facility] RAD[facility]ATION ONCOLOGY Plan Fractions Treated to Date 0 [facility] RADIATION ONCOLOGY Plan Total Fractions Prescribed 1 [facility] RADIATION ONCOLOGY Plan Prescribed Dose Per Fraction 6.89327299264637 Gy [facility] RADIATION ONCOLOGY Plan Total Prescribed [...] as of this encounter Care Teams Director Of Coding Relationship Specialty Start Date End Date Kiana Arenas PA [address] [place] [phone] PCP - General 12/18/20 Grey Wu MD [address] [facility] [address] [place] [phone] Consulting Physician Radiation Oncology 09/16/24 Mini Cordova MD [address] [facility] [address] [place] [phone] Consulting Physician Palliative Medicine 11/27/24 Alonzo Ritter MD [address] [facility] [address] [place] [phone] Consulting Physician Medical Oncology 11/27/24 documented as of this encounter
--- OUTSIDE RECORDS SUMMARY | 2025-05-01 07:34 | XMS_ITS | Encounter Summary ---
Author Organization [facility] Address [address] [place] [address] Care Team Providers Care Truck Spotter Name Role Phone Kiana Arenas Primary Care Provider [phone] Grey Wu MD Unavailable [phone] Mini Cordova MD Unavailable [phone] Alonzo Ritter MD Unavailable Encounter Details Date Type Department Care Team (Late st Contact Info) Description 03/12/2025 Orders Only [facility] Radiation [address] [id number] [place] [address] Radiation Oncology, Physician, [address] [place] [address] Social History Tobacco Use Types Packs/Day [...] Upcoming Encounters Date Type Department Care Team ([facility] st Contact Info) Description 06/04/2025 10:00 AM EDT Clinical Support [facility] Hematology/BMT and Cellular Therapy Program [address] [facility], [address] [place] [address] 06/04/2025 10:30 AM EDT Office Visit [facility] Hematology/BMT and Cellular Therapy Program [address] [facility], [address] [place] [address] Mini Cordova MD [address] [facility] [address] [place] [address] 07/07/2025 9:00 AM EST Office Visit Professional [employer] [facility] [address] [facility], [address] [place] [address] June Jensen MD [address] [facility] 3rd Fl [address] [place] [address] 07/14/2025 1:00 PM EST Appointment [facility] Radiation [address] [id number] [place] [address] Grey Wu MD [address] [facility] [address] [place] [address] 08/06/2025 11:15 AM EST Office Visit [facility] [address], 2[address] [place] [address] Mickie Crocker DO [address] [place] [address] documented as of this encounter Procedures Procedure [...] documented as of this encounter Care Teams Truck Spotter Relationship Specialty Start Date End Date Kiana Arenas PA [address] [place] [address] PCP - General 12/18/20 Grey Wu MD [address] [place] [address] Consulting Physician Radiation Oncology 09/16/24 Mini Cordova MD [address] [facility] [address] [place] [address] Consulting Physician Palliative Medicine 11/27/24 Alonzo Ritter MD 800 [facility] [address] [place] [address] Consulting Physician Medical Oncology 11/27/24 documented as of this encounter
--- OUTSIDE RECORDS SUMMARY | 2025-05-01 07:34 | XMS_ITS | Encounter Summary ---
Author Organization Healthcare Address [address] [place] [address] Care Team Providers Care Nursing Unit Manager Name Role Phone Kiana Arenas Primary Care Provider [phone] Grey Wu MD Unavailable [phone] Mini Cordova MD Unavailable [phone] Alonzo Ritter MD Unavailable Encounter Details Date [...] Program [address] [facility], 1st [place] [address] 06/04/2025 10:30 AM EDT Office Visit [facility] Hematology/BMT and Cellular Therapy Program [address] [facility], 1st Mtr [place] [address] Mini Cordova MD [address] [place] [address] 07/07/2025 9:00 AM EST Office Visit [facility] [address] [facility], [address] [place] [address] June Jensen MD [address] [facility] 3rd Fl [address] [place] [address] 07/14/2025 1:00 PM EST Appointment [facility] Radiation [address] [id number] [place] [address] Grey Wu MD [address] [facility] [address] [place] [address] 08/06/2025 11:15 AM EST Office Visit [place] [facility] [address], 2nd [place] [address] Mickie Crocker DO [address] [place] [address] documented as of this encounter Visit Diagnoses [...] documented as of this encounter Care Teams Nursing Unit Manager Relationship Specialty Start Date End Date Kiana Arenas PA [address] [place] [address] PCP - General 12/18/20 Grey Wu MD 800 [facility] [address] [place] [address] Consulting Physician Radiation Oncology 09/16/24 Mini Cordova MD [address] [place] [address] Consulting Physician Palliative Medicine 11/27/24 Alonzo Ritter MD [address] [facility] Maria Del [facility] [address] [place] [address] Consulting Physician Medical Oncology 11/27/24 documented as of this encounter
--- OUTSIDE RECORDS SUMMARY | 2025-05-01 07:34 | XMS_ITS | Encounter Summary ---
Author Organization [facility] Address [address] [place] [address] Care Team Providers Care Employee Relations Manager Name Role Phone Kiana Arenas Primary Care Provider [phone] Grey Wu MD Unavailable [phone] Mini Cordova MD Unavailable [phone] Alonzo Ritter MD Unavailable Reason for Visit * Reason Onset Date Comments Med Refill 04/30/2025 Encounter Details Date Type Department Care Team (Late st Contact Info) Description 04/30/2025 Refill [facility] Hematology/BMT and Cellular Therapy Program [address] [place] [address] Mini Cordova MD [address] [place] [address] [place] [address] Encounter for palliative care; Nausea Social History Tobacco Use Types Packs/Day [...] Upcoming Encounters Date Type Department Care Team ([facility] st Contact Info) Description 06/04/2025 10:00 AM EDT Clinical Support [facility] Hematology/BMT and Cellular Therapy Program [address] [phone] 06/04/2025 10:30 AM EDT Office Visit [facility] Hematology/BMT and Cellular Therapy Program [address] [phone] Mini Cordova MD [address] [facility] [address] [place] [address] 07/07/2025 9:00 AM EST Office Visit [facility] [place] [facility] [address] [facility], [address] [place] [address] June Jensen MD [address] [facility] 3rd Fl [address] [place] [address] 07/14/2025 1:00 PM EST Appointment [facility] Radiation [address] [id number] [place] [address] Grey Wu MD 800 [facility] [address] [place] [address] 08/06/2025 11:15 AM EST Office Visit [facility] [address], 2nd [place] [address] Mickie Crocker DO [address] [place] [address] [place] [address] documented as of this encounter Visit Diagnoses Diagnosis Encounter for palliative care Nausea Nausea alone documented in this encounter Additional Health Concerns Assessment Noted Time PHQ-9 Depression Total Score: 0 04/11/20 10:53 AM EDT A fall risk assessment has been complete d for the patient 04/11/2025 10:53 AM EDT A Body Mass Index follow-up plan has been documented for the patient 01/21/2025 3:27 PM EDT documented as of this encounter Care Teams Employee Relations Manager Relationship Specialty Start Date End Date Kiana Arenas PA [address] [facility] [place] [address] PCP - General 12/18/20 Grey Wu MD [address] [facility] [address] [place] [address] Consulting Physician Radiation Oncology 09/16/24 Mini Cordova MD [address] [place] [address] [place] [address] Consulting Physician Palliative Medicine 11/27/24 Alonzo Ritter MD [address] [facility] [address] [place] [address] Consulting Physician Medical Oncology 11/27/24 documented as of this encounter
--- OUTSIDE RECORDS SUMMARY | 2025-05-01 07:34 | XMS_ITS | Encounter Summary ---
Author Organization Healthcare Address [facility] [place] [address] Care Team Providers Care Direct Care Specialist Name Role Phone Kiana Arenas Primary Care Provider [phone] Grey Wu MD Unavailable [phone] Mini Cordova MD Unavailable [phone] Alonzo Ritter MD Unavailable Encounter Details Date Type Department Care Team (Latest Contact Info) Description 04/09/2025 Travel Social History Tobacco Use Types Packs/Day [...] doing things Several days 04/09/2025 9:00 AM DIXONT Lesia Villanueva RN Feeling down, depressed, or [...] little energy Several days 04/09/2025 9:00 AM DIXONT Latonia Villanueva RN Poor appetite or overeating Not at all 04/09/2025 9: 00 AM DIXONT Latonia Villanueva RN Feeling bad [...] usual. Not at all 04/09/2025 9:00 AM Latonia Ewing RN Thoughts that you would be better off or hurting yourself in some way Not at all 04/09/2025 9:00 AM EDT Latonia Villanueva RN Patient Health Questionnaire-9 Score 4 04/09/2025 9:00 AM DIXONT Jeremy Villanueva RN documented as of this encounter Plan of Treatment Upcoming Encounters Date Type Department Care Team (Late st Contact Info) Description 06/04/2025 10:00 AM EDT Clinical Support [facility] Hematology/BMT and Cellular Therapy Program [address] [place] [address] [place] [address] 06/04/2025 10:30 AM EDT Office Visit [facility] Hematology/BMT and Cellular Therapy Program [address], [address] [place] [address] Mini Cordova MD [address] [place] [address] 07/07/2025 9:00 AM EST Office Visit [facility] [place] [facility] [address] [facility], [address] [place] [address] June Jensen MD [address] 3[address] [place] [address] 07/14/2025 1:00 PM EST Appointment [facility] Radiation [address] [id number] [place] [address] Grey Wu MD [address] [place] [address] 08/06/2025 11:15 AM EST Office Visit [place] [facility] [address], 2nd [place] [address] Mickie Crocker DO [address] [place] [address] documented as of this encounter [...] documented as of this encounter Care Teams Direct Care Specialist Relationship Specialty Start Date End Date Kiana Arenas PA [address] [place] [address] PCP - General 12/18/20 Grey Wu MD 800 [facility] [address]D [place] [address] Consulting Physician Radiation Oncology 09/16/24 Mini Cordova MD [address] [facility] [address] [place] [address] Consulting Physician Palliative Medicine 11/27/24 Alonzo Ritter MD 800 [facility] [address] [place] [address] Consulting Physician Medical Oncology 11/27/24 documented as of this encounter
--- OUTSIDE RECORDS SUMMARY | 2025-05-01 07:34 | XMS_ITS | Encounter Summary ---
Author Organization [facility] Address [address] [place] [id number] Care Team Providers Care Production Team Leader Name Role Phone Kiana Arenas Primary Care Provider [phone] Grey Wu MD Unavailable [phone] Mini Cordova MD Unavailable [phone] Alonzo Ritter MD Unavailable Encounter Details Date Type Department Care Team (Late st Contact Info) Description 04/01/2025 Telephone [facility] Radiation [address] [facility]. [id number] [place] [address] Anusha Martines, ROTARY ROCK DRILLING MACHINE OPERATOR, DNP 800 [facility] [address] [place] [address] Social History Tobacco Use Types [...] Upcoming Encounters Date Type Department Care Team ([facility] Contact Info) Description 06/04/2025 10:00 AM EDT Clinical Support [facility] Hematology/BMT and Cellular Therapy Program [address] [facility], [facility] [place] [address] 06/04/2025 10:30 AM EDT Office Visit [facility] Hematology/BMT and Cellular Therapy Program 750 [facility], [address] [place] [address] Mini Cordova MD [address] [facility] [address] [place] [address] 07/07/2025 9:00 AM EST Office Visit Professional [employer] [place] [facility] [address] [facility], [address] [place] [address] June Jensen MD [address] [facility] 3rd Fl [address] [place] [address] 07/14/2025 1:00 PM EST Appointment [facility] Radiation [address] [facility]. NP591D [place] [address] Grey Wu MD 800 [facility] [address] [place] [address] 08/06/2025 11:15 AM EST Office Visit [place] [facility] [address], 2nd [place] [address] Mickie Crocker DO [address] [place] [address] documented as of this encounter Visit Diagnoses [...] documented as of this encounter Care Teams Production Team Leader Relationship Specialty Start Date End Date Kiana Arenas PA [address] [facility] [place] [address] PCP - General 12/18/20 Grey Wu MD [address] [facility] [address]D [place] [address] Consulting Physician Radiation Oncology 09/16/24 Mini Cordova MD [address] [facility] [address] [place] [address] Consulting Physician Palliative Medicine 11/27/24 Alonzo Ritter MD [address] [facility] [address] [place] [address] Consulting Physician Medical Oncology 11/27/24 documented as of this encounter
--- OUTSIDE RECORDS SUMMARY | 2025-05-01 07:34 | XMS_ITS ---
Author Organization [facility] Address [address] [place] [address] Care Team Providers Care Mountain Bike Guide Name Role Phone Kiana Arenas Primary Care Provider [phone] Grey Wu MD Unavailable [phone] Mini Cordova MD Unavailable [phone] Alonzo Ritter MD Unavailable Active Problems Problem [...] 08/22/2024 08/22/2024 Overview (08/22/2024): Reviewed records from [facility] ER. Synovial fluid culture negative for [...]
--- OUTSIDE RECORDS SUMMARY | 2025-05-01 07:34 | XMS_ITS | Encounter Summary ---
Author Organization [facility] Address [address] [place] [address] Care Team Providers Care Bone Char Puller Name Role Phone Kiana Arenas Primary Care Provider [phone] Grey Wu MD Unavailable [phone] Mini Cordova MD Unavailable [phone] Alonzo Ritter MD Unavailable Encounter Details Date Type Department Care Team (Late st Contact Info) Description 03/07/2025 Orders Only [facility] Radiation [address] [id number] [place] [address] Radiation Oncology, Physician, [address] [place] [address] Social History Tobacco Use Types Packs/Day [...] Hematology/BMT and Cellular Therapy Program 750 [facility], 1[address] [place] [address] 06/04/2025 10:30 AM EDT Office Visit [facility] Hematology/BMT and Cellular Therapy Program [address] [facility], [address] [place] [address] Mini Cordova MD [address] [facility] [address] [place] [address] 07/07/2025 9:00 AM EST Office Visit Professional [facility] [place] [facility] [address] [facility], [address] [place] [address] June Jensen MD [address] [facility] 3rd [address] [place] [address] 07/14/2025 1:00 PM EST Appointment [facility] Radiation [address] [id number] [place] [address] Grey Wu MD 800 [facility] [address] [place] [address] 08/06/2025 11:15 AM EST Office Visit [place] [facility] [address], 2nd [place] [address] Mickie Crocker DO [address] [place] [address] documented as of this encounter Procedures Procedure [...] documented as of this encounter Care Teams Bone Char Puller Relationship Specialty Start Date End Date Kiana Arenas PA [address] [place] [address] PCP - General 12/18/20 Grey Wu MD [address] [place] [address] Consulting Physician Radiation Oncology 09/16/24 Mini Cordova MD [address] [facility] [address] [place] [address] Consulting Physician Palliative Medicine 11/27/24 Alonzo Ritter MD 800 [facility] [address] [place] [address] Consulting Physician Medical Oncology 11/27/24 documented as of this encounter
--- OUTSIDE RECORDS SUMMARY | 2025-05-01 07:34 | XMS_ITS | Clinical Summary ---
Author Organization [facility] ([place], [place], [place], [place]) Address [address] [place] [address] Care Team Providers Care Senior Cytogenetic Technologist Name Role Phone Kiana Arenas PA-C Primary Care Provider [phone] Allergies Active Allergy Reactions Criticality Noted Date [...] Date James rded Speak language other than Syriac at home Not on file 05/11/2024 Want [...] 2) 2019 COVID-19 VACCINE (3 - season) 2025, 08/02/2021 Influenza Vaccine (#1) 2025 Pneumococcal 50+ years Completed 01/13/2023, 2018 Insurance [facility] Care Teams Senior Cytogenetic Technologist Relationship Specialty Start Date End Date Kiana Arenas, PADebiC [address] [place] [address] PCP - General Physician Rehabilitation Case Coordinator 05/11/24
--- OUTSIDE RECORDS SUMMARY | 2025-05-01 07:34 | XMS_ITS | Encounter Summary ---
Author Organization [facility] Address [address] [place] [address] Care Team Providers Care Coal Mill Operator Name Role Phone Kiana Arenas Primary Care Provider [phone] Grey Wu MD Unavailable [phone] Mini Cordova MD Unavailable [phone] Alonzo Ritter MD Unavailable Encounter Details Date Type Department Care Team (Late st Contact Info) Description 03/10/[address] [facility] Medicine Specialties [address] [place] [address] Mickie Crocker DO [address] [place] [address] Social History Tobacco Use Types [...] Upcoming Encounters Date Type Department Care Team ([facility] st Contact Info) Description 06/04/2025 10:00 AM EDT Clinical Support [facility] Hematology/BMT and Cellular Therapy Program [address] [phone] 06/04/2025 10:30 AM EDT Office Visit [facility] Hematology/BMT and Cellular Therapy Program [address] [address] Mini Cordova MD [address] [facility] [address] [place] [address] 07/07/2025 9:00 AM EST Office Visit [facility] [place] [facility] [address] [facility], [address] [place] [address] June Jensen MD [address] [facility] [address] [place] [address] 07/14/2025 1:00 PM EST Appointment [facility] Radiation 800 [facility]. [id number] [place] [address] Grey Wu MD 800 [facility] [address] [place] [address] 08/06/2025 11:15 AM EST Office Visit [place] [facility] [address], 2[address] [place] [address] Mickie Crocker DO [address] [place] [address] documented as of this encounter [...] documented as of this encounter Care Teams Coal Mill Operator Relationship Specialty Start Date End Date Kiana Arenas PA [address] [place] [address] PCP - General 12/18/20 Grey Wu MD [address] [place] [address] Consulting Physician Radiation Oncology 09/16/24 Mini Cordova MD [address] [place] [address] Consulting Physician Palliative Medicine 11/27/24 Alonzo Ritter MD [address] [place] [address] Consulting Physician Medical Oncology 11/27/24 documented as of this encounter
--- OUTSIDE RECORDS SUMMARY | 2025-05-01 07:34 | XMS_ITS | Encounter Summary ---
Author Organization [facility] Address [address] [place] [address] Care Team Providers Care Safety Specialist Name Role Phone Kiana Arenas Primary Care Provider [phone] Grey Wu MD Unavailable [phone] Mini Cordova MD Unavailable [phone] Alonzo Ritter MD Unavailable Reason for Visit * Reason Comments Med Refill Encounter Details Date Type Department Care Team (Late st Contact Info) Description 03/10/2025 Refill [facility] Hematology/BMT and Cellular Therapy Program [address] [place] [address] Mini Cordova MD [address] [facility] [address] [place] [address] Social History Tobacco Use Types [...] Upcoming Encounters Date Type Department Care Team ([facility] st Contact Info) Description 06/04/2025 10:00 AM EDT Clinical Support [facility] Hematology/BMT and Cellular Therapy Program [address] [phone] 06/04/2025 10:30 AM EDT Office Visit [facility] Hematology/BMT and Cellular Therapy Program [address] [phone] Mini Cordova MD [address] [facility] [address] [place] [address] 07/07/2025 9:00 AM EST Office Visit Professional [employer] [place] [facility] [address] [facility], [address] [place] [address] June Jensen MD [address] [facility] 3rd [address] [place] [address] 07/14/2025 1:00 PM EST Appointment [facility] Radiation 800 [facility] [id number] [place] [address] Grey Wu MD 800 [facility] [address] [place] [address] 08/06/2025 11:15 AM EST Office Visit [place] [facility] Medicine [facility] [address], 2nd [place] [address] Mickie Crocker DO [address] [place] [address] documented as of this encounter Visit Diagnoses [...] as of this encounter Care Teams Safety Specialist Relationship Specialty Start Date End Date Kiana Arenas PA [address] [place] [address] PCP - General 12/18/20 Grey Wu MD 800 [facility] [address] [place] [address] Consulting Physician Radiation Oncology 09/16/24 Mini Cordova MD [address] [place] [address] Consulting Physician Palliative Medicine 11/27/24 Alonzo Ritter MD [address] [place] [address] Consulting Physician Medical Oncology 11/27/24 documented as of this encounter
--- OUTSIDE RECORDS SUMMARY | 2025-05-01 07:34 | XMS_ITS | Encounter Summary ---
Author Organization Healthcare Address [address] [place] [address] Care Team Providers Care Ballistics Tester Name Role Phone Dagoberto Broomfield Luh RODRIGUEZ Primary Care Provider [phone] Grey Wu MD Unavailable [phone] Mini Cordova MD Unavailable [phone] Alonzo Ritter MD Unavailable Encounter Details Date Type Department Care Team (Late Contact Info) Description 06/12/2022 Orders Only External Location [address] [place] [address] Lucita Luis MD [address] [place], [place] [id number] Social History Tobacco Use Types Packs/Day Years Used Date Smoking Tobacco: Every Day Comments Unknown Sex and Gender Information Value Date Recorded Sex Assigned at Not on file Legal Sex Female 6:02 PM EDT Gender Identity Not on file Sexual Orientation Not on file documented as of this encounter Plan of Treatment Upcoming Encounters Date Type Department Care Team ([facility] Contact Info) Description 06/04/2025 10:00 AM EDT Clinical Support [facility] Hematology/BMT and Cellular Therapy Program [address] [place] [address] 06/04/2025 10:30 AM EDT Office Visit [facility] Hematology/BMT and Cellular Therapy Program [address] [place] [address] Mini Cordova MD [address] [place] [address] 07/07/2025 9:00 AM EST Office Visit Professional [employer] [place] [facility] [address], [address] [place] [address] June Jensen MD [address] 3[address] [place] [address] 07/14/2025 1:00 PM EST Appointment [facility] Radiation [address] [id number] [place] [address] Grey Wu MD [address] [place] [address] 08/06/2025 11:15 AM EST Office Visit [place] [facility] [address] 2nd [place] [address] Mickie Crocker, [address] [place] [address] documented as of this encounter Procedures Procedure Name Priority Date/Time Associated Diagnosis Comments CT MSK OUTSIDE IMAGES 06/12/2022 6:09 PM EST documented in this encounter Results * CT MSK OUTSIDE IMAGES (06/12/2022 6:09 PM EST) Anatomical Region Laterality Modality Computed Tomogra phy 06/12/2022 6:09 PM EST us Lucita Luis MD IMG CT PROCEDURES Final Resul t documented in this encounter Visit Diagnoses Not on filedocumented in this encounter Care Teams Ballistics Tester Relationship Specialty Start Date End Date Kiana Arenas PA [address] [place] [address] PCP - General 12/18/20 Grey Wu MD [address] [facility] [address] [place] [address] Consulting Physician Radiation Oncology 09/16/24 Mini Cordova MD [address] [facility] [address] [place] [address] Consulting Physician Palliative Medicine 11/27/24 Alonzo Ritter MD [address] [facility] [address] [place] [address] Consulting Physician Medical Oncology 11/27/24 documented as of this encounter
--- OUTSIDE RECORDS SUMMARY | 2025-05-01 07:34 | XMS_ITS | Encounter Summary ---
Author Organization Healthcare Address [address] [place] [address] Care Team Providers Care Dump Truck Operator Name Role Phone Kiana Arenas Primary Care Provider [phone] Grey Wu MD Unavailable [phone] Mini Cordova MD Unavailable [phone] Alonzo Ritter MD Unavailable Encounter Details Date Type Department Care Team (Late st Contact Info) Description 03/12/2025 Telephone Psych Oncology 800 [place] [address] Susanne Ortiz, RD Social History Tobacco Use [...] Upcoming Encounters Date Type Department Care Team ([facility] Contact Info) Description 06/04/2025 10:00 AM EDT Clinical Support [facility] Hematology/BMT and Cellular Therapy Program [address] [place] [address] 06/04/2025 10:30 AM EDT Office Visit [facility] Hematology/BMT and Cellular Therapy Program [address] [place] [address] Mini Cordova MD [address] [facility] [address] [place] [address] 07/07/2025 9:00 AM EST Office Visit Professional [employer] [place] [facility] [address] [facility], [address] [place] [address] June Jensen MD [address] [facility] [address] [place] [address] 07/14/2025 1:00 PM EST Appointment [facility] Radiation 800 [facility]. [id number] [place] [address] Grey Wu MD [address] [facility] [address] [place] [address] 08/06/2025 11:15 AM EST Office Visit [place] [facility] [address], 2nd [place] [address] Mickie Crocker DO [address] [place] [address] documented as of this encounter [...] documented as of this encounter Care Teams Dump Truck Operator Relationship Specialty Start Date End Date Kiana Arenas PA [address] [facility] [place] [address] PCP - General 12/18/20 Grey Wu MD 800 [facility] [address] [place] [address] Consulting Physician Radiation Oncology 09/16/24 Mini Cordova MD [address] [place] [address] Consulting Physician Palliative Medicine 11/27/24 Alonzo Ritter MD 800 [facility] Maria Del Rosario [address] [address] Consulting Physician Medical Oncology 11/27/24 documented as of this encounter
--- OUTSIDE RECORDS SUMMARY | 2025-05-01 07:35 | XMS_ITS | Encounter Summary ---
Author Organization [facility] Address [address] [place] [address] Care Team Providers Care Chute Boss Name Role Phone Kiana Arenas Primary Care Provider [phone] Grey Wu MD Unavailable [phone] Mini Cordova MD Unavailable [phone] Alonzo Ritter MD Unavailable Encounter Details Date Type Department Care Team (Late Contact Info) Description 10/12/2021 Community [facility] [address] [place] [address] Kiana Arenas, MICHAEL [address] [facility] [place] [id number] Chronic obstructive pulmonary disease, unspecified COPD type [...] Department Care Team (Late Contact Info) Description 06/04/2025 10:00 AM EDT Clinical Support [facility] Hematology/BMT and Cellular Therapy Program [address] [place] [address] 06/04/2025 10:30 AM EDT Office Visit [facility] Hematology/BMT and Cellular Therapy Program [address] [place] [address] Mini Cordova MD [address] [facility] [address] [place] [address] 07/07/2025 9:00 AM EST Office Visit [facility] [address] [facility], [address] [place] [address] June Jensen MD [address] [place] [address] 07/14/2025 1:00 PM EST Appointment [facility] Radiation [address] [id number] [place] [address] Grey Wu MD 800 [facility] [address] [place] [address] 08/06/2025 11:15 AM EST Office Visit [place] [facility] [address], 2nd [place] [address] Mickie Crocker DO [address] [place] [address] documented as of this encounter Visit Diagnoses Diagnosis Chronic obstructive pulmonary disease, unspecified COPD type (CMS/HCC)- Primary documented in this encounter Care Teams Chute Boss Relationship Specialty Start Date End Date Kiana Arenas PA [address] [facility] [place] [address] PCP - General 12/18/20 Grey Wu MD [address] [facility] [address] [place] [address] Consulting Physician Radiation Oncology 09/16/24 Mini Cordova MD [address] [place] [address] Consulting Physician Palliative Medicine 11/27/24 Alonzo Ritter MD [address] [place] [address] Consulting Physician Medical Oncology 11/27/24 documented as of this encounter
--- OUTSIDE RECORDS SUMMARY | 2025-05-01 07:35 | XMS_ITS | Encounter Summary ---
Author Organization Healthcare Address [address] [place] [id number] Care Team Providers Care Technical Services Assistant Name Role Phone Dagoberto Kiana RODRIGUEZ Primary Care Provider [phone] Grey Wu MD Unavailable [phone] Mini Cordova MD Unavailable [phone] Alonzo Ritter MD Unavailable Encounter Details Date Type Department Care Team (Late Contact Info) Description 04/19/2021 Orders Only External Location [address] [place] [address] Stiven Haskins MD [address] [place], [place] [id number] Social History Tobacco Use Types Packs/Day Years [...] CC Hematology/BMT and Cellular Therapy Program [address] [place] [address] 06/04/2025 10:30 AM EDT Office Visit [facility] Hematology/BMT and Cellular Therapy Program [address] [place] [address] Mini Cordova MD [address] [place] [address] 07/07/2025 9:00 AM EST Office Visit Professional [employer] [facility] [facility] [address], [address] [place] [address] June Jensen MD [address] [place] [address] 07/14/2025 1:00 PM EST Appointment [facility] Radiation [address] [id number] [place] [address] Grey Wu MD [address] [place] [address] 08/06/2025 11:15 AM EST Office Visit [place] [facility] [address], 2nd [place] [address] Mickie Crocker, [address] [place] [address] documented as of this encounter [...] on filedocumented in this encounter Care Teams Technical Services Assistant Relationship Specialty Start Date End Date Kiana Arenas PA [address] [place] [address] PCP - General 12/18/20 Grey Wu MD [address] [facility] [address] [place] [address] Consulting Physician Radiation Oncology 09/16/24 Mini Cordova MD [address] [facility] [address] [place] [address] Consulting Physician Palliative Medicine 11/27/24 Alonzo Ritter MD [address] [place] [address] Consulting Physician Medical Oncology 11/27/24 documented as of this encounter
--- OUTSIDE RECORDS SUMMARY | 2025-05-01 07:35 | XMS_ITS | Encounter Summary ---
Author Organization Healthcare Address [address] [place] [address] Care Team Providers Care Vp Sales Name Role Phone Kiana Arenas Primary Care Provider [phone] Grey Wu MD Unavailable [phone] Mini Cordova MD Unavailable [phone] Alonzo Ritter MD Unavailable Reason for Visit * Reason Comments Med Refill Encounter Details Date Type Department Care Team (Late st Contact Info) Description 02/14/2024 Refill [facility] [facility] [address], [address]nd [place] [address] August, [address] [place] [address] Seropositive rheumatoid arthritis of multiple sites ([facility] Social History Tobacco Use Types Packs/Day Years Used Date Smoking Tobacco: Every Day Cigarettes 0.5 41.3 Started: 01/17/1984 Passive Smoke Exposure: Current Comments:Depends [...] CC Hematology/BMT and Cellular Therapy Program 750 [facility] [place] [address] 06/04/2025 10:30 AM EDT Office Visit [facility] Hematology/BMT and Cellular Therapy Program 750 [facility], [address] [place] [address] Mini Cordova MD [address] [facility] [address] [place] [address] 07/07/2025 9:00 AM EST Office Visit [facility] [employer] [place] [facility] [address] [facility], [address] [place] [address] June Jensen MD [address] [facility] 3[address] [place] [address] 07/14/2025 1:00 PM EST Appointment [facility] Radiation [address] [id number] [place] [address] Grey Wu MD 800 [facility] [address] [place] [address] 08/06/2025 11:15 AM EST Office Visit [facility] [facility] [address] 2nd [place] [address] Mickie Crocker DO [address] [place] [address] documented as of this encounter Visit Diagnoses [...] as of this encounter Care Teams Vp Sales Relationship Specialty Start Date End Date Kiana Arenas PA [address] [place] [address] PCP - General 12/18/20 Grey Wu MD [address] [facility] [address] [place] [address] Consulting Physician Radiation Oncology 09/16/24 Mini Cordova MD [address] [place] [address] Consulting Physician Palliative Medicine 11/27/24 Alonzo Ritter MD [address] [place] [address] Consulting Physician Medical Oncology 11/27/24 documented as of this encounter
--- OUTSIDE RECORDS SUMMARY | 2025-05-01 07:35 | XMS_ITS | Clinical Summary ---
Author Organization [facility] Address [address] [place] [address] Care Team Providers Care Milk Runner Name Role Phone Kiana Arenas Primary Care Provider [phone] Allergies Active Allergy Reactions Criticality Noted Date [...] (1 of 2) 2019 ANNUAL PHYSICAL 09/04/2019 INFLUENZA VACCINE 03/07/2025 05/27/2024, , 06/21/2017, Additional history exists TDAP/TD VACCINES (2 - Td or Tdap) 05/27/2034 024 Pneumococcal Vaccine 50+ Completed 01/13/2023, 05/09 HEPATITIS C SCREENING Completed 06/28/2024, 023 Insurance [employer] Advance Directives * Full Code (Latest Code Status on File) Date Activated Date Inactivated Comments 02/25/2016 6:39 PM 02/25/2016 9:46 PM Care Teams Milk Runner Relationship Specialty Start Date End Date Kiana Arenas PA PCP - General Physician Visual Artist 08/29/19
--- OUTSIDE RECORDS SUMMARY | 2025-05-01 07:35 | XMS_ITS | Referral Summary ---
Author Organization [employer] ([place], [place], [place], [place]) Address [address] [place] [address] Care Team Providers Care Chip Tester Name Role Phone Kiana Arenas PA-C Primary Care Provider [phone] Allergies Active Allergy Reactions Criticality Noted Date [...] Date James rded Speak language other than Upper Sorbian at home Not on file 05/11/2024 Want [...] Treatment Not on file Insurance [employer] [facility] Care Teams Chip Tester Relationship Specialty Start Date End Date Kiana Arenas, RYLEY [address] [place] [address] PCP - General Physician Cake Wrapper 05/11/24
--- OUTSIDE RECORDS SUMMARY | 2025-05-01 07:35 | XMS_ITS | Encounter Summary ---
Author Organization Healthcare Address [address] [place] [address] Care Team Providers Care [employer] Scout Name Role Phone Dagoberto Kiana RODRIGUEZ Primary Care Provider [phone] Grey Wu MD Unavailable [phone] Mini Cordova MD Unavailable [phone] Alonzo Ritter MD Unavailable Encounter Details Date Type Department Care Team (Late Contact Info) Description 10/28/2020 Orders Only External Location 800 [place] [address] Mandeep Rivera MD [address] [place] [address] Social History Tobacco Use Types Packs/Day Years [...] Hematology/BMT and Cellular Therapy Program [address] [place] [address] 06/04/2025 10:30 AM EDT Office Visit [facility] Hematology/BMT and Cellular Therapy Program [address] [place] [address] Mini Cordova MD [address] [place] [address] 07/07/2025 9:00 AM EST Office Visit Professional [employer] [place] [facility] [address], [address] [place] [address] June Jensen MD [address] [place] [address] 07/14/2025 1:00 PM EST Appointment [facility] Radiation [address] [id number] [place] [address] Grey Wu MD [address] [place] [address] 08/06/2025 11:15 AM EST Office Visit [place] [facility] [address] 2nd [place] [address] Mickie Crocker, [address] [place] [address] documented as of this encounter Procedures Procedure Name Priority Date/Time Associated Diagnosis Comments XR OUTSIDE IMAGES 10/28/2020 9:56 AM EDT documented in this encounter Results * XR OUTSIDE IMAGES (10/28/2020 9:56 AM EDT) Anatomical Region Laterality Modality Radiographic Shantal ging 10/28/2020 9:56 AM EDT us Mandeep Rivera MD IMG XR PROCEDURES Final Result documented in this encounter Visit Diagnoses Not on filedocumented in this encounter Care Teams [employer] Scout Relationship Specialty Start Date End Date Kiana Arenas PA [address] [place] [address] PCP - General 12/18/20 Grey Wu MD [address] [facility] [address] [place] [address] Consulting Physician Radiation Oncology 09/16/24 Mini Cordova MD [address] [place] [address] Consulting Physician Palliative Medicine 11/27/24 Alonzo Ritter MD [address] [place] [address] Consulting Physician Medical Oncology 11/27/24 documented as of this encounter
--- OUTSIDE RECORDS SUMMARY | 2025-05-01 07:35 | XMS_ITS | Encounter Summary ---
Author Organization Healthcare Address [address] [place] [address] Care Team Providers Care Loom Fixer Helper Name Role Phone Kiana Arenas Primary Care Provider [phone] Grey Wu MD Unavailable [phone] Mini Cordova MD Unavailable [phone] Alonzo Ritter MD Unavailable Encounter Details Date Type Department Care Team (Late Contact Info) Description 09/16/2019 Orders Only External Location [address] [place] [address] Provider, External Social History Tobacco Use Types [...] Hematology/BMT and Cellular Therapy Program [address] [place] [address] 06/04/2025 10:30 AM EDT Office Visit [facility] Hematology/BMT and Cellular Therapy Program 750 [facility], [address] [place] [address] [place] [address] Mini Cordova MD [address] [place] [address] 07/07/2025 9:00 AM EST Office Visit Professional [employer] [place] [facility] [address], [address] [place] [address] June Jensen MD [address] [place] [address] 07/14/2025 1:00 PM EST Appointment [facility] CC Radiation [id number] [place] [address] Grey Wu MD 800 [facility] [address] [place] [address] 08/06/2025 11:15 AM EST Office Visit [place] [facility] [address] 2nd [place] [address] Mickie Crocker DO [address] [place] [address] documented as of this encounter [...] on filedocumented in this encounter Care Teams Loom Fixer Helper Relationship Specialty Start Date End Date Kiana Arenas PA [address] [place] [address] PCP - General 12/18/20 Grey Wu MD [address] [place] [address] Consulting Physician Radiation Oncology 09/16/24 Mini Cordova MD [address] [facility] [address] [place] [address] Consulting Physician Palliative Medicine 11/27/24 Alonzo Ritter MD 800 [facility] [address] [facility] [address] [place] [address] Consulting Physician Medical Oncology 11/27/24 documented as of this encounter
--- OUTSIDE RECORDS SUMMARY | 2025-05-01 07:35 | XMS_ITS | Encounter Summary ---
Author Organization Healthcare Address [address] [place] [address] Care Team Providers Care Diver Helper Name Role Phone Kiana Arenas Primary Care Provider [phone] Grey Wu MD Unavailable [phone] Mini Cordova MD Unavailable [phone] Alonzo Ritter MD Unavailable Encounter Details Date Type Department Care Team (Late Contact Info) Description 05/11/2024 Orders Only External Location 800 [place] [address] Provider, External Social History Tobacco Use Types [...] 750 [facility], [address] [place] [address] 06/04/2025 10:30 AM EDT Office Visit [facility] Hematology/BMT and Cellular Therapy Program [address] [place] [address] Mini Cordova MD [address] [place] [address] 07/07/2025 9:00 AM EST Office Visit Professional [employer] [place] [facility] [address] [place] [address] June Jensen MD [address] [place] [address] 07/14/2025 1:00 PM EST Appointment [facility] Radiation [address] [id number] [place] [address] Grey Wu MD [address] [place] [address] 08/06/2025 11:15 AM EST Office Visit [place] [facility] [address] [place] [address] Mickie Crocker DO [address] [place] [address] documented as of this encounter Procedures Procedure Name Priority Date/Time Associated Diagnosis Comments CT THORACIC OUTSIDE IMAGES 05/11/2024 12:13 PM EDT documented in this encounter Results * CT THORACIC OUTSIDE IMAGES (05/11/2024 12:13 PM EDT) Anatomical Region Laterality Modality Computed Tomogra phy 05/11/2024 12:1 3 PM EDT us External Provider IMG CT [...] documented as of this encounter Care Teams Diver Helper Relationship Specialty Start Date End Date Kiana Arenas PA [address] [place] [address] PCP - General 12/18/20 Grey Wu MD 800 [facility] [address] [place] [address] Consulting Physician Radiation Oncology 09/16/24 Mini Cordova MD [address] [facility] [address] [place] [address] Consulting Physician Palliative Medicine 11/27/24 Alonzo Ritter MD 800 [facility] Maria Del Rosario [address] [facility] [address] [place] [address] Consulting Physician Medical Oncology 11/27/24 documented as of this encounter
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
--- OUTSIDE RECORDS SUMMARY | 2025-05-01 07:35 | XMS_ITS | Encounter Summary ---
Author Organization [facility] Address [address] [place] [address] Care Team Providers Care Welding Machine Operator Helper Gas Name Role Phone Kiana Arenas Primary Care Provider [phone] Grey Wu MD Unavailable [phone] Mini Cordova MD Unavailable [phone] Alonzo Ritter MD Unavailable Reason for Visit * Reason Onset Date Comments Med Refill 03/04/2025 Encounter Details Date Type Department Care Team (Late st Contact Info) Description 03/04/2025 Refill [facility] [address] [place] [address] Dunia Menard S, MARKET MANAGER [address] [place] [address] COPD, severe (CMS/HCC) Social History [...] Hematology/BMT and Cellular Therapy Program [address] [phone] 06/04/2025 10:30 AM EDT Office Visit [facility] Cellular Therapy [facility] [address] [facility], [address] [place] [phone] Mini Cordova MD [address] [facility] [address] [place] [address] 07/07/2025 9:00 AM EST Office Visit [facility] [address] [facility], [address] [place] [address] June Jensen MD [address] [facility] [address] [place] [address] 07/14/2025 1:00 PM EST Appointment [facility] Radiation [address] [facility]. [address] [place] [phone] Grey Wu MD [address] [facility] [address] [place] [address] 08/06/2025 11:15 AM EST Office Visit [facility] [address] [place] [address] Mickie Crocker DO [address] [place] [address] documented as of this encounter [...] documented as of this encounter Care Teams Welding Machine Operator Helper Gas Relationship Specialty Start Date End Date Kiana Arenas PA [address] [place] [address] PCP - General 12/18/20 Grey Wu MD [address] [facility] [address] [place] [address] Consulting Physician Radiation Oncology 09/16/24 Mini Cordova MD [address] [place] [address] Consulting Physician Palliative Medicine 11/27/24 Alonzo Ritter MD [address] [place] [phone] Consulting Physician Medical Oncology 11/27/24 documented as of this encounter
--- OUTSIDE RECORDS SUMMARY | 2025-05-01 07:35 | XMS_ITS | Encounter Summary ---
Author Organization [facility] Address [address] [place] [address] Care Team Providers Care Solderer Assembler Name Role Phone Kiana Arenas Primary Care Provider [phone] Grey Wu MD Unavailable [phone] Mini Cordova MD Unavailable [phone] Alonzo Ritter MD Unavailable Encounter Details Date Type Department Care Team (Late Contact Info) Description 03/01/2023 Orders Only External Location [address] [place] [phone] Dunia Menard S, HIDE TANNER [address] [facility] [address] [place] [address] Social History Tobacco Use Types Packs/Day Years Used Date Smoking Tobacco: Some Days Cigarettes 0.5 41.3 Started: 01/17/1984 Passive Smoke Exposure: Current Comments [...] Hematology/BMT and Cellular Therapy Program [address] [place] [address] 06/04/2025 10:30 AM EDT Office Visit [facility] [address] [place] [address] Mini Cordova MD [address] [place] [address] 07/07/2025 9:00 AM EST Office Visit [facility] [address] [facility], [address] [place] [address] June Jensen MD [address] [place] [address] 07/14/2025 1:00 PM EST Appointment [facility] [address] [place] [address] Grey Wu MD [address] [place] [address] 08/06/2025 11:15 AM EST [facility] [address] [place] [address] Mickie Crocker DO [address] [place] [address] documented as of this encounter Procedures Procedure Name Priority Date/Time Associated Diagnosis Comments CT OUTSIDE IMAGES 03/01/2023 1:23 PM EDT documented in this encounter Results * CT OUTSIDE IMAGES (03/01/2023 1:23 PM EDT) Anatomical Region Laterality Modality Computed Tomogra phy 03/01/2023 1:23 PM EDT Dunia Menard HIDE TANNER IMG CT PROCEDURES Final R esult documented in this encounter Visit Diagnoses Not on filedocumented in this encounter Additional Health Concerns Assessment Noted Time A fall risk assessment has been complete d for the patient 01/13/2023 2:12 PM EDT documented as of this encounter Care Teams Solderer Assembler Relationship Specialty Start Date End Date Kiana Arenas PA [address] [place] [address] PCP - General 12/18/20 Grey Wu MD [address] [facility] [address] [place] [address] Consulting Physician Radiation Oncology 09/16/24 Mini Cordova MD [address] [facility] [address] [place] [address] Consulting Physician Palliative Medicine 11/27/24 Alonzo Ritter MD [address] [facility] [address] [place] [address] Consulting Physician Medical Oncology 11/27/24 documented as of this encounter
--- OUTSIDE RECORDS SUMMARY | 2025-05-01 07:35 | XMS_ITS | Encounter Summary ---
Author Organization Healthcare Address [address] [place] [address] Care Team Providers Care Shoemaker Custom Name Role Phone Kiana Arenas Primary Care Provider [phone] Grey Wu MD Unavailable [phone] Mini Cordova MD Unavailable [phone] Alonzo Ritter MD Unavailable Encounter Details Date Type Department Care Team (Late Contact Info) Description 12/06/2016 Orders Only External Location [address] [place] [address] Provider, External Social History Tobacco Use Types [...] CC Hematology/BMT and Cellular Therapy Program [address] [place] [address] 06/04/2025 10:30 AM EDT Office Visit [facility] Hematology/BMT and Cellular Therapy Program 750 [facility], [address] [place] [address] [place] [address] Mini Cordova MD [address] [place] [address] 07/07/2025 9:00 AM EST Office Visit Professional [employer] [facility] [facility] [address], [address] [place] [address] June Jensen MD [address] [place] [address] 07/14/2025 1:00 PM EST Appointment [facility] Radiation [address] [id number] [place] [address] Grey Wu MD [address] [place] [address] 08/06/2025 11:15 AM EST Office Visit [place] [facility] [address], 2nd [place] [address] Mickie Crocker DO [address] [place] [address] documented as of this encounter Procedures Procedure Name Priority Date/Time Associated Diagnosis Comments CT NEURO OUTSIDE IMAGES 12/06/2016 10:28 PM EDT documented in this encounter Results * CT NEURO OUTSIDE IMAGES (12/06/2016 10:28 PM EDT) Anatomical Region Laterality Modality Computed Tomogra phy 12/06/2016 10:2 8 PM EDT External Provider IMG CT PROCEDURES Final Result documented in this encounter Visit Diagnoses Not on filedocumented in this encounter Care Teams Shoemaker Custom Relationship Specialty Start Date End Date Kiana Arenas PA [address] [place] [address] PCP - General 12/18/20 Grey Wu MD [address] [place] [address] Consulting Physician Radiation Oncology 09/16/24 Mini Cordova MD [address] [facility] [address] [place] [address] Consulting Physician Palliative Medicine 11/27/24 Alonzo Ritter MD 800 [facility] [address] [place] [address] Consulting Physician Medical Oncology 11/27/24 documented as of this encounter
--- OUTSIDE RECORDS SUMMARY | 2025-05-01 07:35 | XMS_ITS | Encounter Summary ---
Author Organization Healthcare Address [address] [place] [address] Care Team Providers Care R&D Engineer Name Role Phone Kiana Arenas Primary Care Provider [phone] Grey Wu MD Unavailable [phone] Mini Cordova MD Unavailable [phone] Alonzo Ritter MD Unavailable Encounter Details Date Type Department Care Team (Late Contact Info) Description 05/11/2024 Orders Only External Location 800 [place] [address] Provider, External Social History Tobacco Use Types [...] CC Hematology/BMT and Cellular Therapy Program 750 [facility], [address] [place] [address] 06/04/2025 10:30 AM EDT Office Visit [facility] Hematology/BMT and Cellular Therapy Program [address], [address] [place] [address] Mini Cordova MD [address] [place] [address] 07/07/2025 9:00 AM EST Office Visit Professional [employer] [place] [facility] [address], [address] [place] [address] June Jensen MD [address] [place] [address] 07/14/2025 1:00 PM EST Appointment [facility] Radiation [address] [place] [address] Grey Wu MD [address] [place] [address] 08/06/2025 11:15 AM EST Office Visit [place] [facility] [address], 2nd [place] [address] Mickie Crocker DO [address] [place] [address] documented as of this encounter Procedures Procedure Name Priority Date/Time Associated Diagnosis Comments CT NEURO OUTSIDE IMAGES 05/11/2024 11:50 AM EDT documented in this encounter Results * CT NEURO OUTSIDE IMAGES (05/11/2024 11:50 AM EDT) Anatomical Region Laterality Modality Computed Tomogra phy 05/11/2024 11:5 0 AM EDT us External Provider IMG CT PROCEDURES [...] documented as of this encounter Care Teams R&D Engineer Relationship Specialty Start Date End Date Kiana Arenas PA [address] [place] [address] PCP - General 12/18/20 Grey Wu MD 800 [facility] [address] [place] [address] Consulting Physician Radiation Oncology 09/16/24 Mini Cordova MD [address] [facility] [address] [place] [address] Consulting Physician Palliative Medicine 11/27/24 Alonzo Ritter MD 800 [facility] Maria Del Rosario [facility] [address] [place] [address] Consulting Physician Medical Oncology 11/27/24 documented as of this encounter
--- OUTSIDE RECORDS SUMMARY | 2025-05-01 07:35 | XMS_ITS | Patient Health Record ---
Author Organization [id number] [facility] Address [address] [place], [place] [id number] Care Team Providers Care Recycling Collections Driver Name Role Phone KARLY Avila [phone] Reason For Referral No Information Plan Of Treatment No Information Insurance Providers Payer Name Payer Address Payer Phone Subscriber Number Group Number Insured Name Patient Relationship to Insured Coverage Start Date Coverage End Date MEDICAID [place] [address] [place], [place] [id number] Erinn Nunez Self - patient is the insured 0 1
--- OUTSIDE RECORDS SUMMARY | 2025-05-01 07:35 | XMS_ITS | Encounter Summary ---
Author Organization Healthcare Address [address] [place] [address] Care Team Providers Care Drug Abuse Resistance Education Officer Name Role Phone Kiana Arenas Primary Care Provider [phone] Grey Wu MD Unavailable [phone] Mini Cordova MD Unavailable [phone] Alonzo Ritter MD Unavailable Encounter Details Date Type Department Care Team (Late Contact Info) Description 05/11/2024 Orders Only External Location [address] [place] [address] Provider, External Social History Tobacco Use Types [...] Cellular Therapy Program 750 [facility], [address] [place] [address] 06/04/2025 10:30 AM EDT Office Visit [facility] Hematology/BMT and Cellular Therapy Program [address], [address] [place] [address] Mini Cordova MD [address] [place] [address] 07/07/2025 9:00 AM EST Office Visit Professional [employer] [place] [facility] [address], [address] [place] [address] June Jensen MD [address] [place] [address] 07/14/2025 1:00 PM EST Appointment [facility] Radiation [id number] [place] [address] Grey Wu MD [address] [place] [address] 08/06/2025 11:15 AM EST Office Visit [place] [facility] [address], 2nd [place] [address] Mickie Crocker DO [address] [place] [address] documented as of this encounter Procedures Procedure Name Priority Date/Time Associated Diagnosis Comments CT NEURO OUTSIDE IMAGES 05/11/2024 11:53 AM EDT documented in this encounter Results * CT NEURO OUTSIDE IMAGES (05/11/2024 11:53 AM EDT) Anatomical Region Laterality Modality Computed Tomogra phy 05/11/2024 11:5 3 AM EDT us External Provider IMG CT [...] documented as of this encounter Care Teams Drug Abuse Resistance Education Officer Relationship Specialty Start Date End Date Kiana Arenas PA [address] [place] [address] PCP - General 12/18/20 Grey Wu MD 800 [facility] [address] [place] [address] Consulting Physician Radiation Oncology 09/16/24 Mini Cordova MD [address] [facility] [address] [place] [address] Consulting Physician Palliative Medicine 11/27/24 Alonzo Ritter MD 800 [facility] Maria Del Rosario Re[facility]on [facility] [address] [place] [address] Consulting Physician Medical Oncology 11/27/24 documented as of this encounter
--- OUTSIDE RECORDS SUMMARY | 2025-05-01 07:35 | XMS_ITS | Patient Health Record ---
Author Organization [facility] Address [address] [place] [address] [address] [place] [address] Care Team Providers Care Manager Insurance Name Role Phone Kiana Wallace Mem Unavailable [...] Status Risk Notes Problem Chronic pain syndrome (209033282) Chronic pain syndrome (G89.4) Active confirmed Problem Cervical spondylosis without myelopathy (935573140) Spondylosis without myelopathy or radiculopathy, 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) Active confirmed Problem Cervical radiculopathy (11927532) Radiculopathy, cervicothoracic region (M54.13) Active confirmed Problem Thoracic radiculopathy (99558376) Radiculopathy, thoracic region (M54.14) Active confirmed Problem Neuralgia (36075522) Neuralgia and neuritis, unspecified (M79.2) Active confirmed Problem Late effect of fracture of spine AND/OR trunk without spinal cord lesion (1789241) Wedge compression fracture of T7-T8 vertebra, sequela (S22.060S) Active confirmed Problem Long-term current use of drug therapy (903382439) Other terminologist (current) drug therapy (Z79.899) Active confirmed Plan Of Treatment No Information Insurance Providers Payer Name Payer Address Payer Phone Subscriber Number Group Number Insured Name Patient Relationship to Insured Coverage Start Date Coverage End Date [employer] [address] [address] [place] [address] [id number] Erinn Nunez Self - patient is the insured 0 Medical (General) History Medical History History ICD Code COPD 2012/ managed by [facility] Thrombosis 2016 / managed by [facility] GERD 2012 /managed by Dr.Dixie Arenas Hypertension 2014/ managed by Dr.Shockwe leo Surgical History Surgery Date(Month/Year) RT Carpal Tunnel Release / Dr.Dixie Adams e / (OP) 2004 Hysterectomy / [facility] / 1 week stay 1995 Hospitalization History Reason Date(Month/Year)
--- OUTSIDE RECORDS SUMMARY | 2025-05-01 07:35 | XMS_ITS | Encounter Summary ---
Author Organization Healthcare Address [address] [place] [address] Care Team Providers Care Fringe Maker Name Role Phone Kiana Arenas Primary Care Provider [phone] Grey Wu MD Unavailable [phone] Mini Cordova MD Unavailable [phone] Alonzo Ritter MD Unavailable Encounter Details Date Type Department Care Team (Late Contact Info) Description 05/11/2024 Orders Only External Location [address] [place] [address] Provider, External Social History Tobacco Use Types [...] Program 750 [facility], [address] [place] [address] 06/04/2025 10:30 AM EDT Office Visit [facility] Hematology/BMT and Cellular Therapy Program [address], [address] [place] [address] Mini Cordova MD [address] [place] [address] 07/07/2025 9:00 AM EST Office Visit Professional [employer] [place] [facility] [address], [address] [place] [address] June Jensen MD [address] [place] [address] 07/14/2025 1:00 PM EST Appointment [facility] CC Radiation [address] [id number] [place] [address] Grey Wu MD [address] [place] [address] 08/06/2025 11:15 AM EST Office Visit [place] [facility] [address], 2nd [place] [address] Mickie Crocker DO [address] [place] [address] documented as of this encounter Procedures Procedure Name Priority Date/Time Associated Diagnosis Comments CT NEURO OUTSIDE IMAGES 05/11/2024 11:55 AM EDT documented in this encounter Results * CT NEURO OUTSIDE IMAGES (05/11/2024 11:55 AM EDT) Anatomical Region Laterality Modality Computed Tomogra phy 05/11/2024 11:5 5 AM EDT us External Provider IMG CT [...] documented as of this encounter Care Teams Fringe Maker Relationship Specialty Start Date End Date Kiana Arenas PA [address] [place] [address] PCP - General 12/18/20 Grey Wu MD 800 [facility] [address] [place] [address] Consulting Physician Radiation Oncology 09/16/24 Mini Cordova MD [address] [facility] [address] [place] [address] Consulting Physician Palliative Medicine 11/27/24 Alonzo Ritter MD 800 [facility] Maria Del Rosario Rebolledorickson [facility] [address] [place] [address] Consulting Physician Medical Oncology 11/27/24 documented as of this encounter
--- OUTSIDE RECORDS SUMMARY | 2025-05-01 07:36 | XMS_ITS | Encounter Summary ---
Author Organization Healthcare Address [address] [place] [address] Care Team Providers Care Product Accountant Name Role Phone Kiana Arenas Primary Care Provider [phone] Grey Wu MD Unavailable [phone] Mini Cordova MD Unavailable [phone] Alonzo Ritter MD Unavailable Encounter Details Date Type Department Care Team (Late st Contact Info) Description 02/27/2025 Social Work Psych Oncology 800 [place] [address] Marisel Griffin Social History Tobacco Use Types [...] CC Hematology/BMT and Cellular Therapy Program 750 [facility], [address] [address] 06/04/2025 10:30 AM EDT Office Visit [facility] CC Hematology/BMT and Cellular Therapy Program 750 [facility], [facility] [place] [address] Mini Cordova MD [address] [facility] [address] [place] [address] 07/07/2025 9:00 AM EST Office Visit [facility] [place] [facility] [address] [facility], [address] [place] [address] June Jensen MD [address] [place] [address] 07/14/2025 1:00 PM EST Appointment [facility] CC Radiation [address] [place] [address] Grey Wu MD 800 [facility] [address] [place] [address] 08/06/2025 11:15 AM EST Office Visit [place] [facility] [address], 2nd [place] [address] Mickie Crocker DO [address] [place] [address] documented as of this encounter Visit Diagnoses [...] documented as of this encounter Care Teams Product Accountant Relationship Specialty Start Date End Date Kiana Arenas PA [address] [place] [address] PCP - General 12/18/20 Grey Wu MD 800 [facility] [address] [place] [address] Consulting Physician Radiation Oncology 09/16/24 Mini Cordova MD [address] [facility] [address] [place] [address] Consulting Physician Palliative Medicine 11/27/24 Alonzo Ritter MD [address] [facility] [address] [place] [address] Consulting Physician Medical Oncology 11/27/24 documented as of this encounter
--- OUTSIDE RECORDS SUMMARY | 2025-05-01 07:36 | XMS_ITS | Encounter Summary ---
Author Organization Healthcare Address [address] [place] [address] Care Team Providers Care Dyed Raw Stock Blower Feeder Name Role Phone Kiana Arenas Primary Care Provider [phone] Grey Wu MD Unavailable [phone] Mini Cordova MD Unavailable [phone] Alonzo Ritter MD Unavailable Encounter Details Date [...] Hematology/BMT and Cellular Therapy Program [address] [facility], [address] [place] [address] 06/04/2025 10:30 AM EDT Office Visit [facility] Hematology/BMT and Cellular Therapy Program [address] [facility], [address] [place] [address] Mini Cordova MD [address] [place] [address] 07/07/2025 9:00 AM EST Office Visit [employer] [facility] [address] [facility], [address] [place] [address] June Jensen MD [address] [facility] 3rd [address] [place] [address] 07/14/2025 1:00 PM EST Appointment [facility] CC Radiation [address] [place] [address] Grey Wu MD [address] [facility] [address] [place] [address] 08/06/2025 11:15 AM EST Office Visit [place] [facility] [address], 2nd [place] [address] Mickie Crocker DO [address] [place] [address] documented as of this encounter Visit Diagnoses [...] documented as of this encounter Care Teams Dyed Raw Stock Blower Feeder Relationship Specialty Start Date End Date Kiana Arenas PA [address] [place] [address] PCP - General 12/18/20 Grey Wu MD 800 [facility] [address] [place] [address] Consulting Physician Radiation Oncology 09/16/24 Mini Cordova MD [address] [place] [address] Consulting Physician Palliative Medicine 11/27/24 Alonzo Ritter MD [address] [facility] Maria Del Rosario Lr [facility] [address] [place] [address] Consulting Physician Medical Oncology 11/27/24 documented as of this encounter
--- OUTSIDE RECORDS SUMMARY | 2025-05-01 07:36 | XMS_ITS | Encounter Summary ---
Author Organization [facility] Address [address] [place] [address] Care Team Providers Care Remote Medical Coder Name Role Phone Kiana Arenas Primary Care Provider [phone] Grey Wu MD Unavailable [phone] Mini Cordova MD Unavailable [phone] Alonzo Ritter MD Unavailable Encounter Details Date Type Department Care Team (Late st Contact Info) Description 03/03/2025 Telephone [facility] Radiation [address] [place] [address] Grey Wu MD [address] [place] [address] Social History Tobacco Use Types [...] or lung, Diagnosed 10/02/2024 (Active) on 03/07/2025 underthe direction of Grey Wu MD. Choose an [...] and Cellular Therapy Program 750 [facility], [address] [place] [address] [place] [address] 06/04/2025 10:30 AM EDT Office Visit [facility] CC Hematology/BMT and Cellular Therapy Program 750 [facility], [address] [place] [address] Mini Cordova MD [address] [place] [address] 07/07/2025 9:00 AM EST Office Visit Professional [employer] [facility] [address] [facility], [address] [place] [address] June Jensen MD [address] [place] [address] 07/14/2025 1:00 PM EST Appointment [facility] CC Radiation [id number] [place] [address] Grey Wu MD 800 [facility] [address] [place] [address] 08/06/2025 11:15 AM EST Office Visit [place] [facility] [address], 2nd [place] [address] Mickie Crocker DO [address] [place] [address] documented as of this encounter Visit Diagnoses [...] documented as of this encounter Care Teams Remote Medical Coder Relationship Specialty Start Date End Date Kiana Arenas PA [address] [place] [address] PCP - General 12/18/20 Grey Wu MD [address] [facility] [address] [place] [address] Consulting Physician Radiation Oncology 09/16/24 Mini Cordova MD [address] [facility] [address] [place] [address] Consulting Physician Palliative Medicine 11/27/24 Alonzo Ritter MD [address] [facility] [address] [place] [address] Consulting Physician Medical Oncology 11/27/24 documented as of this encounter
--- OUTSIDE RECORDS SUMMARY | 2025-05-01 07:36 | XMS_ITS | Encounter Summary ---
Author Organization Healthcare Address [address] [place] [address] Care Team Providers Care Senior Investigator Name Role Phone Kiana Arenas Primary Care Provider [phone] Grey Wu MD Unavailable [phone] Mini Cordova MD Unavailable [phone] Alonzo Ritter MD Unavailable Encounter Details Date [...] CC Hematology/BMT and Cellular Therapy Program 750 [facility], [address] [place] [address] 06/04/2025 10:30 AM EDT Office Visit [facility] Hematology/BMT and Cellular Therapy Program [address] [facility], [address] [place] [address] Mini Cordova MD [address] [place] [address] 07/07/2025 9:00 AM EST Office Visit [employer] [facility] [address] [facility], [address] [place] [address] June Jensen MD [address] [facility] [address] [place] [address] 07/14/2025 1:00 PM EST Appointment [facility] CC Radiation [id number] [place] [address] Grey Wu MD [address] [facility] [address] [place] [address] 08/06/2025 11:15 AM EST Office Visit [place] [facility] [address], 2[address] [place] [address] Mickie Crocker DO [address] [place] [address] documented as of this encounter Visit Diagnoses [...] documented as of this encounter Care Teams Senior Investigator Relationship Specialty Start Date End Date Kiana Arenas PA [address] [place] [address] PCP - General 12/18/20 Grey Wu MD 800 [facility] [address] [place] [address] Consulting Physician Radiation Oncology 09/16/24 Mini Cordova MD [address] [place] [address] Consulting Physician Palliative Medicine 11/27/24 Alonzo Ritter MD 800 [facility] Maria Del Rosario Lr [facility] [address] [place] [address] Consulting Physician Medical Oncology 11/27/24 documented as of this encounter
--- NOTE | 2025-05-01 07:39 | CT_ITS ---
FINAL REPORT TECHNIQUE: Axial imaging of the chest is obtained after the administration of contrast. 3-D MIP reformatted images were also obtained and reviewed per PE protocol. This study was performed with techniques to keep radiation doses as low as reasonably achievable (ALARA). Individualized dose reduction techniques using automated exposure control or adjustment of mA and/or kV according to the patient's size were employed. CLINICAL HISTORY: COPD/cancer/SOB cough COMPARISON: 07/22/2024 FINDINGS: The pulmonary arteries are well filled. There is no evidence of pulmonary embolus. There is no aortic dissection. Heart size is normal. There is no axillary lymphadenopathy. AP window lymph nodes are stable compared to the prior exam. No new adenopathy is present. Changes of severe emphysema are noted. The previously seen left lower lobe airspace disease has resolved. There is no pleural or pericardial effusion. A posterior right upper lobe nodule measures 15 mm, best seen on image #59 of series 5, and seen on coronal image 75 (lung windows) which appears spiculated. This previously measured 8 mm in size. There is a nodular opacity in the subpleural right lower lobe which is stable to slightly increased in size. Airspace disease has increased around the nodular opacity as well. Limited evaluation of the upper abdomen is without acute abnormality. There has been interval healing of the manubrial fracture. The compression fracture of T8 is worse than seen on the prior exam, with 50% loss of height. The previously noted rib fractures have healed. IMPRESSION: 1. No evidence of pulmonary embolism or aortic dissection. 2. Posterior right upper lobe nodule, 15 mm in size, appears spiculated and larger than seen on the prior exam (8 mm). Close follow-up is suggested. 3. There is airspace disease around the nodule which has increased as well. 4. There is worsening of the T8 compression fracture with 50% loss of vertebral body height. Reviewed, Interpreted and Dictated by Shanita Pike MD Transcribed by Janett Bolden Authenticated and [facility]
--- NOTE | 2025-05-01 07:41 | HMH.EDCP ---
Discharge Plan Disposition Patient Disposition: Home, Self-Care Prescriptions Prescriptions: New prednisone 50 mg tablet 50 mg PO DAILY 5 Days Qty: 5 0RF levofloxacin 750 mg tablet 750 mg PO DAILY 7 Days Qty: 7 0RF No Action amitriptyline 25 mg tablet 25 mg PO HS buprenorphine-naloxone 8-2 mg tablet, sublingual 2 tab SUBLINGUAL DAILY Rx Instructions: VERIFIED WITH OUTPATIENT PHARMACY tizanidine 4 mg tablet 4 mg PO TID hydroxyzine pamoate 25 mg capsule 25 mg PO TID PRN (Reason: Itching) Qty: 90 4RF isosorbide mononitrate 30 mg tablet extended release 24 hr 30 mg PO DAILY Qty: 30 5RF aspirin 81 mg tablet,delayed release (DR/EC) See Rx Instructions .ROUTE .COMPLEX Qty: 90 3RF Dose Instruction: TAKE ONE TABLET BY MOUTH EVERY DAY Rx Instructions: TAKE ONE TABLET BY MOUTH EVERY DAY latanoprost 0.005 % drops 1 drp Eye-Both HS gabapentin [Neurontin] 600 mg tablet 600 mg PO TID Patient Comments: TAKE 1 TABLET BY MOUTH THREE TIMES DAILY cyanocobalamin (vitamin B-12) 1,000 mcg/mL solution 1,000 mcg SQ MONTHLY Patient Comments: INJECT 1 ML SUBCUTANEOUSLY monthly FOR vitamin b12 deficiency estradiol [Estrace] 1 mg tablet 1 mg PO DAILY Rx Instructions: TAKE ONE TABLET BY MOUTH EVERY DAY furosemide 40 mg tablet 20 mg PO DAILY Patient Comments: TAKE 1/2 TABLET BY MOUTH EVERY DAY potassium chloride 10 mEq capsule, extended release 10 meq PO BID Patient Comments: TAKE ONE CAPSULE BY MOUTH TWICE DAILY carvedilol 3.125 mg tablet 3.125 mg PO BID Patient Comments: TAKE ONE TABLET BY MOUTH TWICE DAILY ropinirole 0.25 mg tablet 0.25 - 0.5 mg PO HS Patient Comments: TAKE 1 TO 2 TABLET(S) BY MOUTH AT least 1 TO 3 hour(s) BEFORE bedtime FOR restless LEGS omeprazole 20 mg capsule,delayed release(DR/EC) 20 mg PO DAILY Patient Comments: TAKE ONE CAPSULE BY MOUTH EVERY DAY FOR gerd montelukast 10 mg tablet 10 mg PO PM Patient Comments: TAKE ONE TABLET BY MOUTH EVERY DAY FOR allergies ergocalciferol (vitamin D2) 1,250 mcg (50,000 unit) capsule 1,250 mcg PO WEEKLY Patient Comments: TAKE ONE CAPSULE BY MOUTH ONCE A WEEK cholecalciferol (vitamin D3) 25 mcg (1,000 unit) tablet 25 mcg PO DAILY Patient Comments: TAKE ONE TABLET BY MOUTH EVERY DAY calcium carbonate-vitamin D3 600 mg-10 mcg (400 unit) tablet 1 tab PO DAILY Patient Comments: TAKE ONE TABLET BY MOUTH EVERY DAY alendronate 70 mg tablet 70 mg PO WEEKLY albuterol sulfate 90 mcg/actuation Hfa Aerosol Inhaler 2 puff INHALATION Q4H PRN (Reason: Shortness Of Breath Or Wheezing) Trelegy Ellipta 100-62.5-25 mcg Blister With Device 1 inh inhalation DAILY 30 Days Qty: 60 0RF lidocaine 5 % Adhesive Patch,Medicated 1 patch topical 2100 Qty: 0 0RF Rx Instructions: OTC levothyroxine 137 mcg tablet 137 mcg PO DAILY Rx Instructions: TAKE ONE TABLET BY MOUTH EVERY DAY FOR THYROID ibuprofen 800 mg tablet 800 mg PO TID levofloxacin 750 mg tablet 750 mg PO DAILY 6 Days Qty: 6 0RF prednisone 10 mg tablet 10 mg PO DAILY Patient Comments: TAKE ONE TABLET BY MOUTH ONCE DAILY FOR FOURTEEN DAYS --TAKE WITH FOOD-- prednisone 20 mg Tablet 40 mg PO DAILY 2 Days Qty: 4 0RF Referrals Follow up/Referrals: Provider,Referral, MD [Primary Care Provider, Medical] - See instructions Activity Restrictions/Add. Instructions Additional Instructions/Restrictions: As discussed you have lung cancer and pneumonia and terrible emphysema. It was recommended that you have admission to this hospital for IV antibiotics and monitoring but after prolonged discussion we decided that patient wants to go home given her prognosis and we will attempt treatment with steroids and antibiotics. If you change your mind at any time you are welcome to return immediately for continued evaluation and likely admission. You have an old compression fracture in your spine that is a little bit worse, since it is not an acute problem there is nothing particular to do about this right now but will need to keep an eye on it. Please take antibiotics as prescribed. Clinical Impressions Clinical Impression: Pneumonia, Compression fracture of spine Print Language Print Language: Stateless Discharge ED Provider: Paolo North HPI General Chief Complaint: Shortness of Breath/Dyspnea Stated Complaint: SOA Time Seen by Provider: 05/01/25 07:39 History of Present Illness HPI narrative: Patient is a 55-year-old female past medical history of lung cancer, COPD on 3 L nasal cannula at home, no reported cardiac history who presents emergency department for evaluation of shortness of breath and cough. Onset was acute over the last 24 hours. She reportedly has lung cancer that they cannot do anything about patient has not received chemo or radiation and is not a candidate reportedly. She does not take water pills to her recollection. No chest pain. She called 911 where DuoNeb was given and route she presents here for continued evaluation. No other acute complaints at this time. Related Data Home Medications ?Medication ?Instructions ?Recorded ?Confirmed buprenorphine 8 mg-naloxone 2 mg 2 tab sublingual DAILY 08/19/19 07/22/24 sublingual tablet tizanidine 4 mg tablet 4 mg PO TID 10/06/21 07/22/24 cyanocobalamin (vitamin B-12) 1,000 mcg SQ MONTHLY 12/03/23 07/22/24 1,000 mcg/mL injection solution gabapentin 600 mg tablet 600 mg PO TID 12/03/23 07/22/24 (Neurontin) latanoprost 0.005 % eye drops 1 drp Eye-Both HS 12/03/23 07/22/24 amitriptyline 25 mg tablet 25 mg PO HS 12/27/23 07/22/24 estradiol 1 mg tablet (Estrace) 1 mg PO DAILY 01/23/24 07/22/24 albuterol sulfate 90 mcg/actuation 2 puff inhalation Q4H PRN 05/15/24 07/22/24 aerosol inhaler Shortness Of Breath Or Wheezing alendronate 70 mg tablet 70 mg PO WEEKLY 05/15/24 07/22/24 calcium 600 mg (as 1 tab PO DAILY 05/15/24 07/22/24 carbonate)-vitamin D3 10 mcg (400 unit) tablet carvedilol 3.125 mg tablet 3.125 mg PO BID 05/15/24 07/22/24 cholecalciferol (vitamin D3) 25 25 mcg PO DAILY 05/15/24 07/22/24 mcg (1,000 unit) tablet ergocalciferol (vitamin D2) 1,250 1,250 mcg PO WEEKLY 05/15/24 07/22/24 mcg (50,000 unit) capsule furosemide 40 mg tablet 20 mg PO DAILY 05/15/24 07/22/24 montelukast 10 mg tablet 10 mg PO PM 05/15/24 07/22/24 omeprazole 20 mg capsule,delayed 20 mg PO DAILY 05/15/24 07/22/24 release potassium chloride 10 mEq 10 meq PO BID 05/15/24 07/22/24 capsule,extended release ropinirole 0.25 mg tablet 0.25 - 0.5 mg PO HS 05/15/24 07/22/24 levothyroxine 137 mcg tablet 137 mcg PO DAILY 06/06/24 07/22/24 ibuprofen 800 mg tablet 800 mg PO TID 06/07/24 07/22/24 prednisone 10 mg tablet 10 mg PO DAILY 07/22/24 07/22/24 Previous Rx's ?Medication ?Instructions ?Recorded fluticasone fur. 100 mcg-umeclid 1 inh inhalation DAILY 30 days #60 05/17/24 62.5 mcg-vilant 25 mcg ea inhalat.powder (Trelegy Ellipta) lidocaine 5 % topical patch 1 patch topical 2100 #0 ea 05/17/24 levofloxacin 750 mg tablet 750 mg PO DAILY 6 days #6 tabs 07/22/24 prednisone 20 mg tablet 40 mg (2 x 20 mg) PO DAILY 2 days 07/23/24 #4 tabs hydroxyzine pamoate 25 mg capsule 25 mg PO TID PRN Itching #90 caps 08/26/24 isosorbide mononitrate 30 mg 30 mg PO DAILY #30 tabs 12/04/24 tablet,extended release 24 hr aspirin 81 mg tablet,delayed See Rx Instructions .Route 04/08/25 release .COMPLEX #90 tabs levofloxacin 750 mg tablet 750 mg PO DAILY pneumonia 7 days 05/01/25 #7 tabs prednisone 50 mg tablet 50 mg PO DAILY COPD 5 days #5 tabs 05/01/25 Allergies Allergy/AdvReac Type Severity Reaction Status Date / Time Sulfa (Sulfonamide Allergy Unknown I-RASH Verified 05/01/25 08:09 Antibiotics) (SULFA (SULFONAMIDE ANTIBIOTICS)) sulfamethoxazole (From Allergy Unknown I-RASH Verified 05/01/25 08:09 BACTRIM) trimethoprim (From BACTRIM) Allergy Unknown I-RASH Verified 05/01/25 08:09 cefaclor (From CECLOR) AdvReac Unknown CAUSES Verified 05/01/25 08:09 YEAST INFECTION [facility] Disclaimer: The information contained in this section may have been updated after the patient was seen, as this information can be updated by other users. Medical History Exposure to respiratory syncytial virus (RSV) Foot fracture, right Chest wall injury Pneumonia Pseudomonas pneumonia Smoking greater than 30 pack years Acute respiratory failure with hypoxemia Pulmonary emphysema Abnormal findings on diagnostic imaging of heart and coronary circulation Left to right cardiac shunt Interatrial cardiac shunt Dyspnea Chest pain in adult Hypoxia Cough Hypothyroidism (~03/22/18) Epigastric pain Anorexia Early satiety Unexplained weight loss Interstitial cystitis Allergic rhinitis GERD (gastroesophageal reflux disease) Low back pain Edema Vitamin D deficiency Hypertension COPD (chronic obstructive pulmonary disease) Surgical History H/O: hysterectomy Family History Mother Family history of acute congestive heart failure Sister Cancer Other Family history of hyperlipidemia Family history of hypertension Social History Smoking Status: Current every day smoker tobacco type: cigarettes packs per day: 1 alcohol intake: never substance use type: former substance user, opiates and painkillers current occupational status: unemployed and disabled Travel in the last 8 weeks?: None household members: spouse and family housing: house caffeine: Yes Have you lived/traveled outside [place] in past 30 days?: No Contact w/someone who lives/traveled outside US past 30 days?: No Exposure to someone with infectious disease in past 14 days?: No Do you have a fever (greater than 100.4 F or 38 C)?: No Have you tested positive for COVID-19?: No Exposed to someone with COVID-19 in past 14 days?: No Do you have a sore throat?: No Do you have a cough?: No Do you have any weakness?: No Do you have any diarrhea?: No Are you experiencing any unusual bleeding?: No Do you have any muscle aches/pain?: No Do you have any abdominal pain?: No Are you experiencing loss of taste or smell?: No Other Medical History Have you received the Flu Vaccine for this season: No Have you received the Pneumonia Vaccine: No ROS Obtained: Yes Systems reviewed as appropriate & no additional complaints except as documented Physical Exam General General appearance: alert and in no apparent distress Head Head exam: atraumatic and normocephalic Eye Eye exam: Present PERRL and EOMI ENT ENT exam: Present mucous membranes moist Neck Neck exam: Present normal inspection Chest Chest inspection: Present normal inspection and symmetric chest wall rise Respiratory Respiratory exam: Present respiratory distress, wheezes, accessory muscle use and prolonged expiratory phase Cardiovascular Cardiovascular exam: Present normal rhythm and tachycardia Abdominal Exam Abdominal exam: Present soft; Absent tenderness Extremities Exam Extremities exam: Present normal inspection; Absent edema Neurological Exam Neurological exam: Present alert Psychiatric Psychiatric exam: Present normal affect Skin Skin exam: Present warm and dry HEART Score HEART Score HEART Score assessment performed?: Yes History (anamnesis): Slightly suspicious ECG: Normal Age: 45-65 years Risk factors: 1-2 risk factors Troponin: </= normal limit HEART Score: 2 Critical Care Critical Care Time Critical Care Time: Yes Attestation: On 05/01/25, the high probability of a clinically significant, sudden or life threatening deterioration of the following system(s) required my full and direct attention, intervention and personal management. The time I documented below is in addition to time spent performing reported procedures but includes the following listed in this critical care notation. Total Time Total Critical Care Time: 35 Medical Decision Making Faisal Inquiry Pt receiving controlled substance: No Vital Signs Vital Signs: 05/01/25 07:29 05/01/25 07:30 05/01/25 07:41 Temperature 97.9 F Temperature Source Oral Pulse Rate 108 H 116 H Pulse Rate [Left Radial] 106 H Respiratory Rate 20 Blood Pressure 142/90 H 148/92 H Blood Pressure [Right Arm] 142/90 H Blood Pressure Mean Blood Pressure Mean [Right Arm] 107 02 Sat by Pulse Oximetry 92 L 94 L 92 L Oxygen Delivery Method Nasal Cannula Oxygen Flow Rate (LPM) 3 05/01/25 07:51 05/01/25 08:25 05/01/25 08:25 Temperature Temperature Source Pulse Rate 105 H 108 H Pulse Rate [Left Radial] Respiratory Rate Blood Pressure Blood Pressure [Right Arm] Blood Pressure Mean Blood Pressure Mean [Right Arm] 02 Sat by Pulse Oximetry 92 L Oxygen Delivery Method Nasal Cannula Oxygen Flow Rate (LPM) 3 05/01/25 08:29 05/01/25 09:00 05/01/25 09:10 Temperature Temperature Source Pulse Rate 56 L 117 H Pulse Rate [Left Radial] Respiratory Rate 17 15 Blood Pressure 152/85 H 147/109 H Blood Pressure [Right Arm] Blood Pressure Mean Blood Pressure Mean [Right Arm] 02 Sat by Pulse Oximetry 95 93 L Oxygen Delivery Method Oxygen Flow Rate (LPM) 05/01/25 09:12 05/01/25 09:56 05/01/25 11:20 Temperature Temperature Source Pulse Rate 55 L 124 H Pulse Rate [Left Radial] Respiratory Rate 22 26 H Blood Pressure 145/90 H 151/82 H Blood Pressure [Right Arm] Blood Pressure Mean 109 Blood Pressure Mean [Right Arm] 02 Sat by Pulse Oximetry 95 92 L 90 L Oxygen Delivery Method Nasal Cannula Oxygen Flow Rate (LPM) 3 Lab Data Labs: Lab Results 05/01/25 07:30: WBC 8.1, RBC 3.49 L, Hgb 11.4 L, Hct 36.2 L, MCV 103.7 H, MCH 32.7 H, MCHC 31.5 L, RDW 12.0, Plt Count 271, MPV 9.9, Neut % (Auto) 79.3, Lymph % (Auto) 8.0 L, [place] % (Auto) 11.7 H, Eos % (Auto) 0.2, Baso % (Auto) 0.4, Neut # (Auto) 6.5, Lymph # (Auto) 0.7, [place] # (Auto) 1.0, Eos # (Auto) 0.0, Baso # (Auto) 0.0, Sodium 136, Potassium 3.5, Chloride 92 L, Carbon Dioxide 42 H*, Anion Gap 5.5, BUN 10, Creatinine 0.50 L, Estimated Creat Clear 103, Estimated GFR 128, Est GFR ( Amer) 154, Glucose 136 H, Calcium 9.4, Total Bilirubin 0.3, AST 26, ALT 18, Alkaline Phosphatase 119, Troponin I < 0.01, NT-Pro-B Natriuret Pep 889 H, Total Protein 6.8, Albumin 4.0, Globulin 2.8, Albumin/Globulin Ratio 1.4 05/01/25 07:39: VBG pH 7.35, VBG pCO2 78.4 H, VBG pO2 31.8, VBG HCO3 41.9 H, VBG Total CO2 44.3 H, VBG O2 Saturation 66.2, VBG Base Excess 16.2 H, VBG Lactic Acid 1.2 05/01/25 08:05: Chlamy pneumoniae PCR Not detected, Adenovirus (PCR) Not detected, B. pertussis DNA (PCR) Not detected, Coronavirus OC43 (PCR) Not detected, Coronavirus HKU1 (PCR) Not detected, Coronavirus 229E (PCR) Not detected, SARS-CoV-2 (PCR) Not detected, Coronavirus NL63 (PCR) Not detected, Human Metapneumovir PCR Not detected, Influenza A (H1) PCR Not detected, Influ A (H1N1/09) PCR Not detected, Influenza A (H3) PCR Not detected, Influenza Type A (PCR) Not detected, Influenza Type B (PCR) Not detected, M. pneumoniae (PCR) Not detected, Parainfluenza 1 (PCR) Not detected, Parainfluenza 2 (PCR) Not detected, Parainfluenza 3 (PCR) Not detected, Parainfluenza 4 (PCR) Not detected, RSV (PCR) Not detected, Entero/Rhino (PCR) Detected A 05/01/25 10:09: Urine Color Yellow, Urine Appearance Sl cloudy, Urine pH 7.0, Ur Specific [place] <= 1.005, Urine Protein Negative, Urine Glucose (UA) Negative, Urine Ketones Trace, Urine Blood Negative, Urine Nitrate Negative, Urine Bilirubin Negative, Urine Urobilinogen 1.0, Ur Leukocyte Esterase Negative, Urine RBC None, Urine WBC Occasional, Ur Squamous Epith Cells 3-5, Amorphous Sediment 1+, Urine Bacteria 2+ 05/01/25 07:30 05/01/25 07:30 Response Orders (Tests/Meds): ED MEDICATIONS Discontinued Medications Generic Name Dose Route Start Last Admin Trade Name Freq PRN Reason Stop Dose Admin Albuterol Sulfate 20 mg 05/01/25 08:57 05/01/25 09:09 Albuterol 0.083% 2.5 Mg/3 Ml Neb 05/01/25 08:58 20 mg ONCE ONE Administration Albuterol/Ipratropium 9 ml 05/01/25 07:42 05/01/25 08:26 Ipratropium/Albuterol 3 Ml [facility] 05/01/25 07:43 9 ml ONCE ONE Administration Magnesium Sulfate 2 gm in 50 mls @ 50 mls/hr 05/01/25 07:42 05/01/25 09:04 Magnesium Sulfate 2gm/50ml Premix IV 05/01/25 08:41 Infused ONCE ONE Infusion Azithromycin 500 mg/ Sodium 250 mls @ 250 mls/hr 05/01/25 07:42 05/01/25 09:48 Chloride IV 05/01/25 07:43 Infused ONCE ONE Infusion Levofloxacin/Dextrose 750 mg in 150 mls @ 100 mls/hr 05/01/25 08:00 05/01/25 11:39 Levofloxacin 750mg/150ml Premix IV 05/01/25 09:29 Infused ONCE ONE Infusion Iopamidol 80 ml 05/01/25 08:15 05/01/25 08:19 Iopamidol-370 (76%);100ml Bottle IV 05/01/25 08:16 80 ml ONCE ONE Administration Methylprednisolone Sodium Succinate 125 mg 05/01/25 07:42 05/01/25 07:54 Methylprednisolone Sod Succ 125mg Vial IV 05/01/25 07:43 125 mg ONCE ONE Administration Promethazine HCl 25 mg 05/01/25 09:30 05/01/25 09:47 Promethazine Hcl 25mg/Ml 1ml Vial IV 05/01/25 09:31 25 mg ONCE ONE Administration Sodium Chloride 50 ml 05/01/25 08:15 05/01/25 08:19 0.9 % Sodium Chloride 50 Ml Vial IV 05/01/25 08:16 50 ml ONCE ONE Administration Sodium Chloride 10 ml 05/01/25 08:15 05/01/25 08:19 Sodium Chloride 0.9% 10ml Syr (Rad Only) IV 05/01/25 08:16 10 ml ONCE ONE Administration Sodium Chloride 25 ml 05/01/25 09:30 05/01/25 09:48 Sodium Chloride 0.9% 25ml Bag IV 05/01/25 09:31 25 ml ONCE ONE Administration ORDERS Category Date Time Status CT head/brain wo con Stat Cat Scan 05/01/25 10:04 Stop Req CTA Chest [CT angio chest PE protocol] Stat Cat Scan 05/01/25 07:39 Completed BNP [NT Pro Brain Natriuretic Pep.] Stat Lab 05/01/25 07:30 Completed CBC w/Auto Diff [Complete Blood Count Auto Diff] Stat Lab 05/01/25 07:30 Completed CMP [Comprehensive Metabolic Panel] Stat Lab 05/01/25 07:30 Completed Full Resp Panel w/COVID ([facility]) Routine Lab 05/01/25 08:05 Completed Trop I [Troponin I] Stat Lab 05/01/25 07:30 Completed UA [Urinalysis and Microscopic] Stat Lab 05/01/25 10:09 Completed Blood Culture Stat Micro 05/01/25 08:26 Received Urine Culture Stat Micro 05/01/25 10:09 Received VBG [Venous Blood Gas] Stat RT 05/01/25 07:39 Completed ECG Data Tracing #1: ECG Narrative: Independently interpreted by me rate is 104, rhythm is regular, no ST elevation in anatomical contiguous leads, QTc 385. MDM Narrative Medical Decision Narrative: In summary patient is a 55-year-old female past medical history of scrota above presents emergency department for evaluation of shortness of breath and cough in the setting of lung cancer not on chemo or radiation at this time, COPD on 3 L nasal cannula at baseline. Patient is at her oxygen baseline upon arrival however is on respiratory distress with poor air movement prolonged expiratory phase biphasic wheezing. Does not appear volume overloaded. She states she does not take any diuretics but it seems as if she takes furosemide on her medicine tab. Given that she is largely euvolemic will give gentle crystalloid resuscitation at this time as she may be intravascularly deplete and does not appear overtly volume overloaded and has mild tachycardia although she did just get a breathing treatment. Differential includes viral COPD exacerbation, pulmonary embolism, pneumonia, atypical ACS, among others. Workup will be conducted with hematologic labs CT angio chest pulmonary embolism protocol EKG troponin. Initial inventions include steroids, DuoNebs x 3, magnesium. Per review of pulmonology note patient has a history of connective tissue disorder/rheumatoid arthritis, previous Pseudomonas pneumonia. Given this initial antibiotics include azithromycin for atypical coverage and inflammation modulation as well as levofloxacin. Although patient reports she has lung cancer and Dr. Marcial is her cancer doctor I do not see any mention of this in his notes. Upon further questioning of the patient she receives her cancer care somewhere in [place] will obtain collateral when daughter arrives. Initial hematologic labs no significant leukocytosis no transfusable anemia normal platelet count chronically compensated hypercarbia on VBG no MATIAS or critical electrolyte abnormality initial troponin undetectably low mildly elevated BNP tissue reperfusion assessment performed will stop crystalloid resuscitation at this time as patient is largely euvolemic. 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 Per review of palliative note patient is on trial of rituximab for joint pain with elevated rheumatoid factor and was referred to palliative care for pain management given that she is not a candidate for chemotherapy. Patient has chronic low back pain and midthoracic pain and rib pain for which she is on gabapentin, oxycodone, [place] patch. CT angio chest informally visualized by me, remarkable end-stage emphysematous changes. Formal read shows no evidence of pulmonary embolism or aortic dissection, associated nodules with airspace disease around the nodule worsening compression fractures for which the patient is not currently complaining of any new symptoms. Multiple extensive decision making discussions were had at bedside over the course of 3 hours with both her spouse and her daughter. Patient intermittently has capacity but is becoming intermittently encephalopathic. Patient wishes to go home with antibiotics understanding that inpatient therapy is the best medical management of this scenario. Multiple options including inpatient management, hospice evaluation, home with antibiotics, symptom control only were discussed and the entire family wants to proceed with going home and attempting antibiotics knowing that patient very well may deteriorate and her condition may worsen however her prognosis given her lung disease is very poor at baseline. They would rather her be not agitated and more comfortable at home. I offered hospice evaluation for which they declined and state they will have her cancer doctor perform this. They were instructed to return at any point should they want their full medical evaluation and patient be admitted to this hospital with pneumonia and they verbalized understanding. All questions were answered at length. Patient has rhinovirus positive swab but may have superimposed pneumonia given CT findings. Patient will be discharged with a course of levofloxacin and steroids at this time.
[2025-05-01 07:44] LABS: Hematocrit 36.2 % (37.0-47.0); Hemoglobin 11.4 g/dL (12.2-16.2); Immature Granulocytes % 0.4 %; Mean Corpuscular HGB Conc 31.5 g/dL (31.8-35.4); Mean Corpuscular Hemoglobin 32.7 pg (27.0-31.2); Mean Corpuscular Volume 103.7 fl (81-99); Nucleated Red Blood Cells % 0 %; Platelet Count 271 K/mm3 (142-424); Red Blood Count 3.49 M/mm3 (4.20-5.40); Red Cell Distribution Width-SD 45.9 fL; White Blood Count 8.1 K/mm3 (4.8-10.8)
[2025-05-01 07:47] LABS: Lactate Venous 1.2 mmol/L (0.4-2.0); VBG HCO3 41.9 mmol/L (23-30); VBG PH 7.35 mmol/L (7.31-7.41); VBG PO2 31.8 mmol/L (28-40)
[2025-05-01 07:49] LABS: VBG PCO2 78.4 mmol/L (35-51)
--- NOTE | 2025-05-01 07:49 | PC.NURSE ---
Dr. North notified of VBG results.
[2025-05-01 07:51] LABS: Alanine Aminotransferase 18 U/L (12-78); Albumin Level 4.0 g/dl (3.5-5.0); Albumin/Globulin Ratio 1.4 (1.1-1.8); Alkaline Phosphatase 119 U/L (38-126); Aspartate Amino Transferase 26 U/L (14-36); Bilirubin,Total 0.3 mg/dl (0.2-1.3); Blood Urea Nitrogen 10 mg/dl (7-17); Calcium 9.4 mg/dl (8.4-10.2); Chloride 92 mmol/L (98-107); Creatinine Clearance Estimated 103 mL/min (50-200); Creatinine,Serum 0.50 mg/dl (0.52-1.04); Estimated Glomerular Filt Rate 128 ml/min (>60); GFR (African American) 154 ML/MIN (>60); Globulin 2.8 g/dL (1.3-3.2); Glucose 136 mg/dl (74-100); Potassium 3.5 mmoL/L (3.5-5.1); Sodium 136 mmol/L (136-145); Total Protein,Serum 6.8 g/dl (6.3-8.2)
[2025-05-01] MEDS: METHYLPREDNISOLONE SOD SUCC 125MG VIAL 125 MG IV (07:54)
[2025-05-01] MEDS: MAGNESIUM SULFATE IN WATER 2 GM/50 ML PIGGYBACK IV (07:56)
[2025-05-01 08:03] LABS: NT Pro Brain Natriuretic Pep. 889 pg/mL (0-125)
[2025-05-01 08:05] LABS: Anion Gap 5.5 mEq/L (5-15); Carbon Dioxide 42 mmol/L (22.0-30.0); Troponin I < 0.01 ng/ml (0.00-0.034)
[2025-05-01 08:10] LABS: Adenovirus,PCR Not Detected (NotDetected); Chlamydophila Pneumoniae, PCR Not Detected (NotDetected); Coronavirus 19, PCR Not Detected (NotDetected); Coronovirus HKU1,PCR Not Detected (NotDetected); Influenza A, PCR Not Detected (NotDetected); Influenza AH1, 2009 Not Detected (NotDetected); Influenza AH1, PCR Not Detected (NotDetected); Influenza AH3,PCR Not Detected (NotDetected); Influenza B, PCR Not Detected (NotDetected); Mycoplasma Pneumoniae, PCR Not Detected (NotDetected); Parainfluenza 1, PCR Not Detected (NotDetected); Parainfluenza 2, PCR Not Detected (NotDetected); Parainfluenza 3, PCR Not Detected (NotDetected); Parainfluenza 4, PCR Not Detected (NotDetected)
[2025-05-01] MEDS: SODIUM CHLORIDE 0.9% 10ML SYR (RAD ONLY) 10 ML IV (08:19)
[2025-05-01] MEDS: IOPAMIDOL-370 (76%);100ML BOTTLE 80 ML IV (08:19)
[2025-05-01] MEDS: 0.9 % SODIUM CHLORIDE 50 ML VIAL IV (08:19)
[2025-05-01] MEDS: IPRATROPIUM/ALBUTEROL 3 ML NEB 9 ML IH (08:26)
[2025-05-01] MEDS: AZITHROMYCIN 500 MG in 0.9 % SODIUM CHLORIDE 250 ML 250 MG IV (08:44)
[2025-05-01] MEDS: ALBUTEROL 0.083% 2.5 MG/3 ML NEB 20 MG IH (09:09)
[2025-05-01] MEDS: LEVOFLOXACIN/D5W 750 MG/150 ML 750 MG/150 ML PIGGYBACK 100 MG IV (09:30)
[2025-05-01] MEDS: PROMETHAZINE HCL 25MG/ML 1ML VIAL 25 MG IV (09:47)
[2025-05-01] MEDS: SODIUM CHLORIDE 0.9% 25ML BAG 25 ML IV (09:48)
[2025-05-01 10:16] LABS: Microscopic, Urine URINE MICROSCOPIC (MICROSCOPIC)
[2025-05-01 10:17] LABS: Bilirubin,Urine Negative (Negative); Color,Urine YELLOW (Yellow); Glucose,Urine (UA) Negative (Negative); Ketones,Urine TRACE (Negative); Leukocyte Esterase,Urine Negative (Negative); PH,Urine 7.0 (5.0-8.5); Protein,Urine Negative (Negative); Specific Gravity, Urine <= 1.005 (1.005-1.030); Urobilinogen,Urine 1.0 EU/dl (0.2)
[2025-05-01 10:36] LABS: Amorphous Sediment,Urine 1+ /lpf; Bacteria,Urine 2+ /lpf; WBC,Urine Occasional #/hpf (0-3)
--- NOTE | 2025-05-01 10:52 | HMH.ITSTN ---
patient refusing CT scan, to speak with patients daughter and update radiology staff on decision to scan
--- NOTE | 2025-05-01 11:37 | PC.NURSE ---
pt and patient daughter do not want her to have a head ct since she just had one last month, they to finish antibiotics and then go home. RN advised of this plan and patient wishes and he states he will go in and discuss this with them.
--- NOTE | 2025-05-01 11:38 | PC.NURSE ---
canceled head ct scan order patient is refusing and patient daughter does not want to put her through that
== END 2025-05-01 13:04 | disposition home or self-care (01) ==
PROVIDERS: Emergency Provider Emergency Medicine
DX: J12.89 Other viral pneumonia (principal); F17.210 Nicotine dependence, cigarettes, uncomplicated; J44.9 Chronic obstructive pulmonary disease, unspecified; C34.91 Malignant neoplasm of unspecified part of right bronchus or lung; S22.080A Wedge compression fracture of T11-T12 vertebra, initial encounter for closed fracture; X58.XXXA Exposure to other specified factors, initial encounter
CPT/HCPCS: 0223U; 71275; 80053; 81001; 82803; 83880; 84484; 85025; 87040; 87086; 93005; 96365; 96367; 96375; 99285; J0456; J1956; J2550; J2919; J3475; J7050; Q9967